=== PATIENT | male | born 1965 | race Hispanic/Latino ===

== ENCOUNTER 2018-03-18 02:56 | Emergency (ER) | payer OTHER ==
[2018-03-18] MEDS ORDERED: MEPERIDINE HCL 25 MG/0.5 ML ONE (03:36)
[2018-03-18] MEDS ORDERED: MEPERIDINE HCL 50 MG/ML AMP ONE (03:36)
[2018-03-18] MEDS ORDERED: PROMETHAZINE 25 MG/ML VIAL ONE (03:37)
--- NOTE | 2018-03-18 05:44 | ER ---
Nurse's Notes [facility] Name: Nikos Corona Age: 52 yrs Sex: Male : 1965 Arrival Date: 03/18/2018 Time: 02:58 Bed 7 Private MD: Braulio Mendoza Diagnosis: Neck and back strain. Contusions right knee and left shoulder Presentation: 03/18 03:13 Presenting complaint: Patient states: " Around 5 PM yesterday I was talking to the ea doctors office about getting my Ambien refilled and stepped off the porch and slid and fell on my ass" pt reports he got up took a shower and laid down, reports he was unable to go to sleep due to the pain in his right leg, back, chest, shoulder and neck pain. Transition of care: patient was not received from another setting of care. Onset of symptoms was March 17, 2018. Initial Sepsis Screen: Does the patient meet any 2 criteria? HR > 90 bpm. Does the patient have a suspected source of infection? No. Patient's initial sepsis screen is negative. Care prior to arrival: None. 03:13 Method Of Arrival: Wheelchair ea 03:13 Acuity: YESI 3 ea Triage Assessment: 03:13 General: Appears uncomfortable, Behavior is restless. Pain: Complains of pain in ea posterior cervical area, left trapezius, right trapezius, lumbar area, left low back, right low back, anterior aspect of left upper chest and right leg Pain currently is 10 out of 10 on a pain scale. Quality of pain is described as aching, sharp, Is continuous. Neuro: Level of Consciousness is awake, alert, obeys commands, Oriented to person, place, time, situation. Cardiovascular: Heart tones present Patient's skin is warm and dry. Cardiovascular: suzie lower 2+ pitting edema. Respiratory: Airway is patent Respiratory effort is even, unlabored, Respiratory pattern is regular, symmetrical, Breath sounds are clear bilaterally. GI: Abdomen is round Bowel sounds present X 4 quads. Derm: Skin is pink, warm \\T\\ dry. Historical: - Allergies: 03:20 Rifampin; ea 03:20 Sulfa (Sulfonamide Antibiotics); ea - Home Meds: 03:20 atorvastatin Oral [Active]; clopidogrel 75 mg Oral tab 1 tab once daily [Active]; ea gabapentin Oral [Active]; Glipizide Oral [Active]; Isosorbide Mononitrate Oral [Active]; morphine 15 mg Oral tab 1 tab daily [Active]; [place] 10-325 mg Oral tab 1 tab every 6 hours [Active]; Omeprazole Oral [Active]; Zolpidem Tartrate Oral [Active]; Spironolactone Oral [Active]; - PMHx: 03:20 CHF; Diabetes - NIDDM; Hypertension; Hyperlipidemia; Myocardial infarction; ea - Immunization history:: Adult Immunizations up to date. - Social history:: Smoking status: Patient uses tobacco products, smokes one-half pack cigarettes per day. Screenin:27 Abuse screen: Denies threats or abuse. Nutritional screening: No deficits noted. ea Tuberculosis screening: No symptoms or risk factors identified. Fall Risk Assessment: 04:15 Reassessment: Pt returned from CT. ea 04:44 Reassessment: Pt resting with eyes closed, respirations even and unlabored, chest ea expansions even and symmetrical. no s/s of pain or discomfort noted at this time. 05:50 Reassessment: Resting with eyes closed, respirations even and unlabored, chest ea expansions even and symmetrical. No s/s of pain or discomfort noted at this time. 06:45 Reassessment: Patient and/or family updated on plan of care and expected duration. Pain ea level reassessed. Patient is alert, oriented x 3, equal unlabored respirations, skin warm/dry/pink. Discharge instruction given to patient, pt verbalized he was going to wait in the lobby for friend to pick him up. Vital Signs: 03:15 BP 131 / 94; Pulse 101; Resp 20 S; Temp 97.8(O); Pulse Ox 97% on R/A; Weight 124.74 kg; ea Height 6 ft. 1 in. (185.42 cm); Pain 10/10; 04:58 BP 120 / 73; Pulse 87; Resp 18 S; Pulse Ox 97% on R/A; ea 05:21 BP 129 / 70; Pulse 83; Resp 18; Pulse Ox 97% ; ea 06:40 BP 126 / 78; Pulse 80; Resp 18; Temp 97.8(O); Pulse Ox 98% on R/A; Pain 7/10; ea 03:15 Body Mass Index 36.28 (124.74 kg, 185.42 cm) ea ED Course: 02:58 Patient arrived in ED. es 02:58 Braulio Mendoza MD is Private Physician. es 03:13 Cristina Soto, RN is Primary Nurse. ea 03:13 Patient has correct armband on for positive identification. Bed in low position. Call ea light in reach. Side rails up X2. 03:17 Triage completed. ea 03:23 Domingo Wilkes MD is Attending Physician. pkl 03:27 Arm band placed on right wrist. ea 03:55 X-ray completed. Portable x-ray completed in exam room. Patient tolerated procedure kw poorly. 03:56 Shoulder Left (2 View) XRAY In Process Unspecified. EDMS 03:56 Knee Right 2 View XRAY In Process Unspecified. EDMS 04:20 CT completed. Patient moved to CT via stretcher. Patient moved back from CT. cw1 04:31 CT Traumagram (Head C Spine CAP wo con) In Process Unspecified. EDMS 05:43 Braulio Mendoza MD is Referral Physician. pkl 06:45 No provider procedures requiring assistance completed. Patient did not have IV access ea during this emergency room visit. Administered Medications: 03:43 Drug: Phenergan 12.5 mg Route: IM; Site: left deltoid; ea 04:15 Follow up: Response: No adverse reaction; Pain is decreased ea 03:44 Drug: Demerol 75 mg Route: IM; Site: right gluteus; ea 04:15 Follow up: Response: No adverse reaction; Pain is decreased ea Outcome: 05:44 Discharge ordered by . pkl 06:45 Discharged to Pt awaiting in the lobby for friend to pick him up. ea 06:45 Condition: improved 06:45 Discharge instructions given to patient, Instructed on discharge instructions, follow up and referral plans. medication usage, Demonstrated understanding of instructions, follow-up care, medications, Prescriptions given X 1. 06:55 Patient left the ED. ea Signatures: Dispatcher [employer] EDMS Domingo Wilkes MD MD pkl Salyer, Edna es Woodley, Crystal cw1 Clotilde Rouse Elena, RN RN hima Corrections: (The following items were deleted from the chart) 07:12 07:10 Patient left the ED. ea ea
--- NOTE | 2018-03-18 05:45 | EDPHYS ---
Physician Documentation [facility] Name: Nikos Corona Age: 52 yrs Sex: Male : 1965 Arrival Date: 03/18/2018 Time: 02:58 Bed 7 Private MD: Braulio Mendoza ED Physician Domingo Wilkes HPI: 03/18 03:30 This 52 yrs old Male presents to ER via Wheelchair with complaints of Fall pkl Injury. 03:30 Details of fall: The patient fell from an upright position, while standing. Onset: The pkl symptoms/episode began/occurred today, 10 hour(s) ago. Associated injuries: The patient sustained neck injury, pain with movement, upper back injury, injury to the low back, pain, left shoulder, right knee. Historical: - Allergies: 03:20 Rifampin; ea 03:20 Sulfa (Sulfonamide Antibiotics); ea - Home Meds: 03:20 atorvastatin Oral [Active]; clopidogrel 75 mg Oral tab 1 tab once daily [Active]; ea gabapentin Oral [Active]; Glipizide Oral [Active]; Isosorbide Mononitrate Oral [Active]; morphine 15 mg Oral tab 1 tab daily [Active]; [place] 10-325 mg Oral tab 1 tab every 6 hours [Active]; Omeprazole Oral [Active]; Zolpidem Tartrate Oral [Active]; Spironolactone Oral [Active]; - PMHx: 03:20 CHF; Diabetes - NIDDM; Hypertension; Hyperlipidemia; Myocardial infarction; ea - Immunization history:: Adult Immunizations up to date. - Social history:: Smoking status: Patient uses tobacco products, smokes one-half pack cigarettes per day. ROS: 03:30 Eyes: Negative for injury, pain, redness, and discharge, ENT: Negative for injury, pkl pain, and discharge. 03:30 Neck: Positive for pain with movement. 03:30 Cardiovascular: Negative for chest pain. 03:30 Respiratory: Negative for shortness of breath. 03:30 Abdomen/GI: Negative for abdominal pain, nausea, vomiting, and diarrhea. 03:30 Back: Positive for pain with movement, of the upper and lower back. 03:30 : Negative for urinary symptoms. 03:30 MS/extremity: Positive for contusion, of the left shoulder, right knee. 03:30 Skin: Negative for rash. 03:30 Neuro: Negative for altered mental status, loss of consciousness. Exam: 03:30 Head/Face: Normocephalic, atraumatic. Eyes: Pupils equal round and reactive to light, pkl extra-ocular motions intact. Lids and lashes normal. Conjunctiva and sclera are non-icteric and not injected. Cornea within normal limits. Periorbital areas with no swelling, redness, or edema. ENT: Nares patent. No nasal discharge, no septal abnormalities noted. Tympanic membranes are normal and external auditory canals are clear. Oropharynx with no redness, swelling, or masses, exudates, or evidence of obstruction, uvula midline. Mucous membranes moist. 03:30 Neck: ROM/movement: pain, that is mild, with any movement. 03:30 Chest/axilla: Exam negative for acute changes. 03:30 Cardiovascular: Rate: tachycardic, actual rate is 101 bpm, Rhythm: regular. 03:30 Respiratory: the patient does not display signs of respiratory distress, Respirations: normal, Breath sounds: are clear throughout. 03:30 Abdomen/GI: Bowel sounds: normal, Palpation: abdomen is soft and non-tender, in all quadrants. 03:30 Back: pain, that is moderate, of the upper and lower back. 03:30 : Exam negative for acute changes. 03:30 Musculoskeletal/extremity: Exam is negative for acute changes. 03:30 Skin: Exam negative for rash. 03:30 Neuro: Orientation: is normal, Mentation: is normal, Cranial nerves: grossly normal, Motor: is normal. Vital Signs: 03:15 BP 131 / 94; Pulse 101; Resp 20 S; Temp 97.8(O); Pulse Ox 97% on R/A; Weight 124.74 kg; ea Height 6 ft. 1 in. (185.42 cm); Pain 10/10; 04:58 BP 120 / 73; Pulse 87; Resp 18 S; Pulse Ox 97% on R/A; ea 05:21 BP 129 / 70; Pulse 83; Resp 18; Pulse Ox 97% ; ea 06:40 BP 126 / 78; Pulse 80; Resp 18; Temp 97.8(O); Pulse Ox 98% on R/A; Pain 7/10; ea 03:15 Body Mass Index 36.28 (124.74 kg, 185.42 cm) ea MDM: 03:23 Patient medically screened. pkl 05:43 Data reviewed: vital signs, nurses notes, radiologic studies, CT scan, plain films. pkl 03/18 03:30 Order name: CT Traumagram (Head C Spine CAP wo con) pkl 03/18 03:30 Order name: Shoulder Left (2 View) XRAY pkl 03/18 03:30 Order name: Knee Right 2 View XRAY pkl 03/18 05:45 Order name: Apolinar Wrap; Complete Time: 05:55 pkl 03/18 05:45 Order name: Sling; Complete Time: 05:55 pkl Administered Medications: 03:43 Drug: Phenergan 12.5 mg Route: IM; Site: left deltoid; ea 04:15 Follow up: Response: No adverse reaction; Pain is decreased ea 03:44 Drug: Demerol 75 mg Route: IM; Site: right gluteus; ea 04:15 Follow up: Response: No adverse reaction; Pain is decreased ea Disposition: 03/18/18 05:44 Discharged to Home. Impression: Neck and back strain. Contusions right knee and left shoulder. - Condition is Stable. - Prescriptions for Ultram 50 mg Oral Tablet - take 1 tablet by ORAL route every 8 hours As needed; 20 tablet. - Medication Reconciliation Form, Thank You Letter, Antibiotic Education, Prescription Opioid Use form. - Follow up: Braulio Mendoza MD; When: 2 - 3 days; Reason: Re-evaluation by your physician. - Problem is new. - Symptoms have improved. Signatures: Dispatcher [employer] EDDomingo Crum MD MD pkCristina Farr, RN RN hima
--- NOTE | 2018-03-18 06:19 | RAD REPORT ---
EXAM DESCRIPTION: RAD - Knee Right 2 View - 03/18/2018 3:58 am CLINICAL HISTORY: Fall, knee pain COMPARISON: None. FINDINGS: No gross fracture deformity is seen. Medial compartment narrowing present. Small a moderat e joint effusion is present. No fat fluid level identified.Soft tissues are mildly edematous. Minimal degenerative change to the patella. No air or foreign body in the soft tissues. IMPRESSION: Joint effusion is present but no fracture is identifiable at this time.
--- NOTE | 2018-03-18 06:21 | RAD REPORT ---
EXAM DESCRIPTION: RAD - Shoulder Left 2 View - 03/18/2018 4:00 am CLINICAL HISTORY: Fall, shoulder pain COMPARISON: None. TECHNIQUE: Internal and external rotation views of the left shoulder were obtained. FINDINGS: There is no fracture or dislocation. AC joint is normal in appearance. No significant dege nerative change. Acromial humeral joint space is normal. Pacemaker overlies a portion of the scapula. IMPRESSION: Negative two-view left shoulder examination for acute finding.
[2018-03-18 07:15] VITALS: TEMP 97.8; O2SAT 97
[2018-03-18 07:17] VITALS: BP 129/70
--- NOTE | 2018-03-18 08:23 | RAD REPORT ---
EXAM DESCRIPTION: CT - Head C Spine Cap Wo Con - 03/18/2018 6:15 am CLINICAL HISTORY: Fall, head, neck, chest and abdomen pain COMPARISON: None. TECHNIQUE: Axial [address] head images were obtained. Axial [address] cervical spine images were obtain ed with sagittal and coronal reconstruction images reviewed. Axial 5 mm images of the chest, abdomen and pelvis were obtained. All CT scans are performed using dose optimization technique as appropriate and may include automated exposure control or mA/KV adjustment according to patient size. FINDINGS: No intracranial hemorrhage, mass or edema. No midline shift or abnormal fluid collection. Mastoid air cells are clear. Patchy mucosal thickening in the ethmoid air cells. No skull fracture. Cervical bodies are normal in height. There is reversal of the usual cervical lordosis that is probab ly positioning artifact. Muscle spasm can create the same pattern.No subluxation abnormality.No fract ure or acute bone finding.C6-7 disc space narrowing present with endplate spurring. No spinal stenosi s seen. Foraminal stenosis is present at this level. No other significant disc space narrowing.No pre vertebral soft tissue thickening or paraspinal mass.Central canal detail is inherently limited on CT imaging.Carotid calcifications are present. No pulmonary contusion, large mass, infiltrate or other suspicious finding. Patient has a few scatter ed pulmonary nodules under 6 mm in size. None are calcified. No pneumothorax or pleural effusion. N o mediastinal hematoma and the aorta and pulmonary arteries are unremarkable. No chest will mass or a bnormal axillary finding. No displaced rib fracture or other significant bony finding. CT abdomen and pelvis show no injury to solid abdominal viscera. Cholecystectomy clips are present. N o biliary tree dilatation. No acute bowel injury identifiable. No free air, free fluid or abnormal st randing. No mass or bulky lymphadenopathy. There is a 3.5 centimeter ventral hernia with 2.6 centimet er neck in the upper abdomen at the level of the stomach. Herniated fat has a mild congested or edema tous appearance. No bowel involvement. No urinary bladder abnormality. Chest, abdomen and pelvis show bony degenerative change but no acute process identifiable. No acute v ascular finding suspected. Vascular assessment is limited in the absence of contrast. IMPRESSION: No hemorrhage, edema or acute CT Head finding. Cervical spine degenerative change as detailed. No fracture or acute finding. No pulmonary contusion or pneumothorax. A small Bochdalek's hernia is seen on the left. No acute comp onent. Patient has several noncalcified pulmonary nodules under 6 mm. Followup recommendations would be opti onal [address] study for low risk patient or [address] follow-up for a high risk patient. No acute finding in the abdomen or pelvis. Nonacute findings detailed in the body of the report.
== END 2018-03-18 07:10 | disposition home or self-care (01) ==
LOC: ER 02:56
DX: S16.1XXA Strain of muscle, fascia and tendon at neck level, initial encounter (principal); S80.01XA Contusion of right knee, initial encounter; S40.012A Contusion of left shoulder, initial encounter; W18.39XA Other fall on same level, initial encounter; Y93.89 Activity, other specified; Y92.9 Unspecified place or not applicable; Z88.2 Allergy status to sulfonamides; Z88.8 Allergy status to other drugs, medicaments and biological substances; I10 Essential (primary) hypertension; E11.9 Type 2 diabetes mellitus without complications; E78.5 Hyperlipidemia, unspecified; I25.2 Old myocardial infarction; F17.210 Nicotine dependence, cigarettes, uncomplicated
CPT/HCPCS: 70450; 71250; 72125; 73030; 73560; J2175 ×2; J2550; 96372; 99284

== ENCOUNTER 2018-06-05 10:54 | Inpatient (IN) | payer OTHER ==
[2018-06-05] MEDS ORDERED: FENTANYL CITR 100 MCG/2 ML ONE (12:13)
[2018-06-05] MEDS ORDERED: Levofloxacin500mg IV 500 MG/100 ML BAG IV ONE (12:13)
[2018-06-05] MEDS ORDERED: ONDANSETRON 4 MG/2 ML VIAL ONE (12:13)
[2018-06-05] MEDS ORDERED: VANCOMYCIN 1 GM/250 ML BAG ONE (12:14)
[2018-06-05 12:26] LABS: Absolute Lymphocytes (CBC) 2.1 K/uL (0.7-4.9); Absolute Monocytes 0.9 K/uL (0.1-1.3); Absolute Neutrophil 8.6 K/uL (1.8-8.0); Basophils % 0.8 % (0-1.3); Eosinophils % 4.8 % (0-4.4); Hematocrit 34.2 % (39.6-49.0); Lymphocytes % 17.2 % (15.3-44.8); MCH 32.7 pg (27.0-35.0); MCV 92.5 fL (80-100); MPV 8.2 fL (7.6-11.3); RBC Red Blood Cell Count 3.69 M/uL (4.33-5.43)
[2018-06-05 12:32] LABS: BUN Blood Urea Nitrogen 19 mg/dL (7-18); Bicarbonate 28 mmol/L (21-32); Glucose Level 290 mg/dL (74-106); Potassium 3.9 mmol/L (3.5-5.1); Sodium Level 137 mmol/L (136-145)
--- NOTE | 2018-06-05 13:28 | EDPHYS ---
Physician Documentation [facility] Name: Nikos Corona Age: 52 yrs Sex: Male : 1965 Arrival Date: 06/05/2018 Time: 10:57 Bed 2 Private MD: Braulio Mendoza ED Physician Axel Zhou HPI: 06/05 12:00 This 52 yrs old Male presents to ER via Ambulatory with complaints of Wound jr8 Infection - TOE. 12:00 The patient presents with pain, swelling, tenderness. The complaints affect the left jr8 foot. Context: resulted from an unknown cause. Onset: The symptoms/episode began/occurred acutely, 3 day(s) ago. Modifying factors: The symptoms are alleviated by nothing, the symptoms are aggravated by weight bearing, movement, wearing shoes. Associated signs and symptoms: The patient has no apparent associated signs or symptoms. Severity of symptoms: At their worst the symptoms were moderate, in the emergency department the symptoms are unchanged. The patient has experienced a previous episode. The patient has not recently seen a physician. Historical: - Allergies: 11:04 Rifampin; sg 11:04 Sulfa (Sulfonamide Antibiotics); sg - PMHx: 11:04 CHF; Diabetes - NIDDM; Hyperlipidemia; Hypertension; Myocardial infarction; sg - Immunization history:: Adult Immunizations up to date. - Social history:: Smoking status: Patient/guardian denies using tobacco. - Ebola Screening: : Patient negative for fever greater than or equal to 101.5 degrees Fahrenheit, and additional compatible Ebola Virus Disease symptoms Patient denies exposure to infectious person Patient denies travel to an Ebola-affected area in the 21 days before illness onset No symptoms or risks identified at this time. ROS: 12:02 Eyes: Negative for injury, pain, redness, and discharge, ENT: Negative for injury, jr8 pain, and discharge, Neck: Negative for injury, pain, and swelling, Cardiovascular: Negative for chest pain, palpitations, and edema, Respiratory: Negative for shortness of breath, cough, wheezing, and pleuritic chest pain, Abdomen/GI: Negative for abdominal pain, nausea, vomiting, diarrhea, and constipation, Back: Negative for injury and pain, Skin: Negative for injury, rash, and discoloration, Neuro: Negative for headache, weakness, numbness, tingling, and seizure. 12:02 MS/extremity: Positive for erythema, pain, swelling, tenderness, of the left foot. Exam: 12:02 Cardiovascular: Regular rate and rhythm with a normal S1 and S2. No gallops, murmurs, jr8 or rubs. Normal PMI, no JVD. No pulse deficits. Respiratory: Lungs have equal breath sounds bilaterally, clear to auscultation and percussion. No rales, rhonchi or wheezes noted. No increased work of breathing, no retractions or nasal flaring. Skin: Warm, dry with normal turgor. Normal color with no rashes, no lesions, and no evidence of cellulitis. Neuro: Awake and alert, GCS 15, oriented to person, place, time, and situation. Cranial nerves II-XII grossly intact. Motor strength 5/5 in all extremities. Sensory grossly intact. Cerebellar exam normal. Normal gait. 12:02 Musculoskeletal/extremity: Extremities: grossly normal except: noted in the left foot: erythema, pain, swelling, tenderness, ROM: intact in all extremities, Circulation is intact in all extremities. Sensation intact. 3rd digit left foot with exudate noted under skin. Thickened and swollen. Nail has been lost. Vital Signs: 11:05 BP 139 / 80; Pulse 85; Resp 17 S; Temp 98.1; Pulse Ox 98% on R/A; Weight 129.27 kg (R); sg Height 5 ft. 10 in. (177.80 cm) (R); Pain 10/10; 12:00 BP 124 / 78; Pulse 78; Resp 20; Pulse Ox 97% on R/A; aj 13:27 BP 132 / 88; Pulse 72; Resp 16; Pulse Ox 97% on R/A; aj 14:42 BP 122 / 77; Pulse 89; Resp 20; Pulse Ox 96% on R/A; ae1 11:05 Body Mass Index 40.89 (129.27 kg, 177.80 cm) sg MDM: 11:46 Patient medically screened. jr8 13:24 Data reviewed: vital signs, nurses notes, lab test result(s), and as a result, I will jr8 admit patient. Data interpreted: Pulse oximetry: on room air is 97 %. Interpretation: normal. Counseling: I had a detailed discussion with the patient and/or guardian regarding: the historical points, exam findings, and any diagnostic results supporting the discharge/admit diagnosis, lab results, the need for further work-up and treatment in the hospital. 13:27 ED course: Patient does not want to be admitted to Dr. Mendoza . [facility] 06/05 11:58 Order name: CBC with Diff; Complete Time: 13:00 [facility] 06/05 11:58 Order name: Basic Metabolic Panel; Complete Time: 13:00 [facility] 06/05 11:58 Order name: Blood Culture Adult (2) [facility] 06/05 14:07 Order name: Urinalysis [facility] 06/05 14:09 Order name: Lower Ext. W/Wo Con [facility] 06/05 11:58 Order name: IV; Complete Time: 12:20 [facility] 06/05 14:07 Order name: CONS Physician Consult [facility] 06/05 14:07 Order name: Heart Healthy [facility] 06/05 14:07 Order name: NPO [facility] 06/05 14:09 Order name: CONS [facility] Administered Medications: 12:18 Drug: LevaQUIN 500 mg Volume: 100 ml; Route: IVPB; Infused Over: 60 mins; Site: right aj antecubital; 13:39 Follow up: Response: No adverse reaction; IV Status: Completed infusion; IV Intake: aj 100ml 12:19 Drug: fentaNYL (PF) 50 mcg Route: IVP; Site: right antecubital; aj 13:39 Follow up: Response: Pain is decreased aj 12:19 Drug: Zofran 4 mg Route: IVP; Site: right antecubital; aj 13:38 Follow up: Response: No change in condition aj 13:37 Drug: vancoMYCIN 1 grams Route: IVPB; Infused Over: 2 hrs; Site: right antecubital; aj 14:58 Follow up: IV Status: Infusion continued upon admission ae1 14:10 Drug: Nicotine 21 mg/24 hr 1 patches Route: Transdermal; Site: anterior chest wall; ae1 14:31 Drug: Ativan 0.5 mg Route: IVP; Site: right antecubital; ae1 14:57 Follow up: Response: Anxiety decreased ae1 14:31 Not Given (Duplicate Order): Ativan 0.5 mg IVP once ae1 14:31 Not Given (Duplicate Order): morphine 4 mg IVP once ae1 14:35 Drug: morphine 4 mg Route: IVP; Site: right antecubital; ae1 14:57 Follow up: Response: Pain is decreased ae1 Disposition: 17:30 Co-signature as Attending Physician, Axel Zhou MD I agree with the assessment and kdr plan of care. Disposition: 06/05/18 13:27 Hospitalization ordered by Phoebe Roberts for Inpatient Admission. Preliminary diagnosis is Cellulitis of left toe. - Bed requested for Telemetry/MedSurg (Inpatient). - Status is Inpatient Admission. ae1 - Condition is Stable. - Problem is new. - Symptoms are unchanged. UTI on Admission? No Signatures: Dispatcher [employer] EDMS Getachew Leblanc RN RN Heavenly Roman RN Axel Schaefer MD MD [facility] Kam Jones PA PA jr8 Michael Dickey RN RN ae1 Jen Fonseca mt, Elizabeth eb Corrections: (The following items were deleted from the chart) 13:52 13:27 Hospitalization Ordered by Phoebe Roberts MD for Inpatient Admission. Preliminary mt diagnosis is Cellulitis of left toe. Bed requested for Telemetry/MedSurg (Inpatient). Status is Inpatient Admission. Condition is Stable. Problem is new. Symptoms are unchanged. UTI on Admission? No. jr8 14:33 13:52 06/05/2018 13:27 Hospitalization Ordered by Phoebe Roberts MD for Inpatient eb Admission. Preliminary diagnosis is Cellulitis of left toe. Bed requested for Telemetry/MedSurg (Inpatient). Status is Inpatient Admission. Condition is Stable. Problem is new. Symptoms are unchanged. UTI on Admission? No. mt 15:16 14:33 06/05/2018 13:27 Hospitalization Ordered by Phoebe Roberts MD for Inpatient ae1 Admission. Preliminary diagnosis is Cellulitis of left toe. Bed requested for Telemetry/MedSurg (Inpatient). Status is Inpatient Admission. Condition is Stable. Problem is new. Symptoms are unchanged. UTI on Admission? No. eb
--- NOTE | 2018-06-05 13:28 | ER ---
Nurse's Notes [facility] Name: Nikos Corona Age: 52 yrs Sex: Male : 1965 Arrival Date: 06/05/2018 Time: 10:57 Bed 2 Private MD: Braulio Mendoza Diagnosis: Cellulitis of left toe Presentation: 06/05 11:03 Presenting complaint: Patient states: Wound to the left foot, second and third toe, pt sg reports pain and swelling, pain a 10/10. Transition of care: patient was not received from another setting of care. Onset of symptoms was June 05, 2018. Risk Assessment: Do you want to hurt yourself or someone else? Patient reports no desire to harm self or others. Care prior to arrival: None. 11:03 Method Of Arrival: Ambulatory sg 11:03 Acuity: YESI 3 sg 15:05 Initial Sepsis Screen: Does the patient meet any 2 criteria? No. Patient's initial ae1 sepsis screen is negative. Does the patient have a suspected source of infection? Yes: Skin breakdown/wound. Historical: - Allergies: 11:04 Rifampin; sg 11:04 Sulfa (Sulfonamide Antibiotics); sg - PMHx: 11:04 CHF; Diabetes - NIDDM; Hyperlipidemia; Hypertension; Myocardial infarction; sg - Immunization history:: Adult Immunizations up to date. - Social history:: Smoking status: Patient/guardian denies using tobacco. - Ebola Screening: : Patient negative for fever greater than or equal to 101.5 degrees Fahrenheit, and additional compatible Ebola Virus Disease symptoms Patient denies exposure to infectious person Patient denies travel to an Ebola-affected area in the 21 days before illness onset No symptoms or risks identified at this time. Screenin:00 Abuse screen: Denies threats or abuse. Denies injuries from another. Nutritional aj screening: No deficits noted. Tuberculosis screening: No symptoms or risk factors identified. Fall Risk None identified. Assessment: 12:00 General: Appears in no apparent distress. comfortable, Behavior is calm, cooperative, aj appropriate for age. Pain: Complains of pain in left foot and left leg. Neuro: Level of Consciousness is awake, alert, obeys commands, Oriented to person, place, time, situation, Appropriate for age. Respiratory: Airway is patent Respiratory effort is even, unlabored, Respiratory pattern is regular, symmetrical. Derm: Skin is intact, is healthy with good turgor, Skin is pink, warm \\T\\ dry. normal, Wound noted plantar aspect of left third toe and Left third toenail Wound is White eschar noted to wound. Patient reports toenail coming off last night when dressing was changed. 14:07 Reassessment: Patient states he needs to "go outside and smoke a cigarette". Nurse ae1 notified Dr. Roberts, per provider ok to administer nicotine patch. 14:25 Reassessment: This nurse entered the room to an alarming IV pump. Patient observed aj laying sideways in bed and stated " Can you do something about this cuff it keeps going off" This nurse stated "I will set it to go every hour instead so it doesn't go off as much." Patient then requested to stand up. Side rail lowered and wheelchair placed at bedside in locked position so patient can move easily from bed to chair. Patient stated "I'm in so much fucking pain with my neuropathy I am about to go crazy and start destroying your shit, I need to stand up and walk around. I also get claustrophobic when the curtain is closed and when I am alone." I stated "Sir, I need to ask you not to swear anymore as this room is not private and the people next door can hear, as can the people in the hallway because we can't close the door." Patient stated, "you're not gonna tell me I can't cuss, I will say what I want because of my fucking neuropathy and my pain. Take this shit off, I'm getting out of here." Vancomycin stopped and disconnected from patient. Carrington reveles called. Michael Riley RN at bedside to witness. 14:25 Reassessment: Patient was loudly cursing and using abusive language towards nurse, ae1 Patient stated he wanted to go outside, he became increasingly agitated. Nurse asked patient to lower voice and refrain from cursing, patient became angry and threatened to "break your shit." Called carrington Reveles as patient stood abruptly and demanded that nurses remove IV. Vital Signs: 11:05 BP 139 / 80; Pulse 85; Resp 17 S; Temp 98.1; Pulse Ox 98% on R/A; Weight 129.27 kg (R); sg Height 5 ft. 10 in. (177.80 cm) (R); Pain 10/10; 12:00 BP 124 / 78; Pulse 78; Resp 20; Pulse Ox 97% on R/A; aj 13:27 BP 132 / 88; Pulse 72; Resp 16; Pulse Ox 97% on R/A; aj 14:42 BP 122 / 77; Pulse 89; Resp 20; Pulse Ox 96% on R/A; ae1 11:05 Body Mass Index 40.89 (129.27 kg, 177.80 cm) ED Course: 10:57 Patient arrived in ED. sb2 10:57 Braulio Mendoza MD is Private Physician. sb2 11:04 Triage completed. sg 11:04 Arm band placed on. sg 11:43 Heavenly Roman, BLANCA is Primary Nurse. aj 11:46 Kam Jones PA is PHCP. jr8 11:46 Axel Zhou MD is Attending Physician. jr8 12:00 Patient has correct armband on for positive identification. aj 12:00 Inserted saline lock: 20 gauge in right antecubital area, using aseptic technique. aj Blood collected. 13:27 Phoebe Roberts MD is Hospitalizing Provider. jr8 13:27 No provider procedures requiring assistance completed. aj 15:15 Patient admitted, IV remains in place. ae1 Administered Medications: 12:18 Drug: LevaQUIN 500 mg Volume: 100 ml; Route: IVPB; Infused Over: 60 mins; Site: right aj antecubital; 13:39 Follow up: Response: No adverse reaction; IV Status: Completed infusion; IV Intake: aj 100ml 12:19 Drug: fentaNYL (PF) 50 mcg Route: IVP; Site: right antecubital; aj 13:39 Follow up: Response: Pain is decreased aj 12:19 Drug: Zofran 4 mg Route: IVP; Site: right antecubital; aj 13:38 Follow up: Response: No change in condition aj 13:37 Drug: vancoMYCIN 1 grams Route: IVPB; Infused Over: 2 hrs; Site: right antecubital; aj 14:58 Follow up: IV Status: Infusion continued upon admission ae1 14:10 Drug: Nicotine 21 mg/24 hr 1 patches Route: Transdermal; Site: anterior chest wall; ae1 14:31 Drug: Ativan 0.5 mg Route: IVP; Site: right antecubital; ae1 14:57 Follow up: Response: Anxiety decreased ae1 14:31 Not Given (Duplicate Order): Ativan 0.5 mg IVP once ae1 14:31 Not Given (Duplicate Order): morphine 4 mg IVP once ae1 14:35 Drug: morphine 4 mg Route: IVP; Site: right antecubital; ae1 14:57 Follow up: Response: Pain is decreased ae1 Intake: 13:39 IV: 100ml; Total: 100ml. aj Outcome: 13:27 Decision to Hospitalize by Provider. jr8 15:14 Admitted to Med/surg accompanied by tech, via wheelchair, room 201, with chart, Report ae1 called to BLANCA Martin 15:14 Condition: stable 15:14 Instructed on the need for admit, Demonstrated understanding of instructions. 15:16 Patient left the ED. ae1 Signatures: Getachew Leblanc RN RN sg Myers, Amanda, RN RN aj Roszak, Josh, PA PA jr8 Michael Dickey RN RN ae1 Charlene Rebolledo sb2
[2018-06-05] MEDS ORDERED: ACETAMINOPHEN 500 MG TAB PO PRN (14:02)
[2018-06-05] MEDS ORDERED: ONDANSETRON 4 MG/2 ML VIAL IV PRN (14:02)
[2018-06-05] MEDS ORDERED: NICOTINE 21 MG/PAT TD ONE (14:10)
[2018-06-05] MEDS ORDERED: LORazepam 2 MG/ML VIAL ONE (14:32)
[2018-06-05] MEDS ORDERED: MORPHINE 4 MG/ML SYR ONE (14:33)
[2018-06-05] MEDS: VANCOMYCIN 2 GM in NA CHLORIDE 0.9% 500 ML IVPB SCH (15:00)
[2018-06-05] MEDS ORDERED: NA CHLORIDE 0.9% 1,000 ML IV SCH ×2 (15:00→19:00)
[2018-06-05] MEDS ORDERED: VANCOMYCIN 1.25 GM in NA CHLORIDE 0.9% 250 ML IVPB SCH (15:00)
[2018-06-05 15:28] VITALS: O2SAT 96
[2018-06-05 15:39] VITALS: BMI 40.8
[2018-06-05] MEDS: INSULIN -REGULAR HUMAN 50 UNIT/0.5 ML ML SQ SCH ×2 (16:28→21:00)
--- NOTE | 2018-06-05 17:03 | P.HP ---
Certification for Inpatient Patient admitted to: Inpatient With expected LOS: >2 Midnights Patient will require the following post-hospital care: None Practitioner: I am a practitioner with admitting privileges, knowledge of patient current condition, hospital course, and medical plan of care. Services: Services provided to patient in accordance with Admission requirements found in Title 42 Section 412.3 of the Code of Federal Regulations Patient History Date of Service: 06/05/18 Primary Care Provider: Dr Mendoza (However Pt states he does not want to be seen by Him anymore) Reason for admission: Left Toe cellulitis History of Present Illness: This is a 52-year-old male with significant past medical history of diabetes, hypertension, hyperlipidemia, CHF, who presented to the ED complaining of having some left toe swelling and pain. Patient was seen at the broom worker office this morning and was told to come to the ER for his left toe infection. Patient has had multiple infection in the past on the right foot but not on the left. Patient stated that his left toe has been hurting for past couple of days and chronically got worse and thus he decided to go see his broom worker. Patient does have a history of longstanding diabetes which is uncontrolled due to noncompliance. Patient has been seen by a infectious disease doctor here in the hospital before as well. Patient had stated that he has noticed a low- grade fever and chills at the house as well. In the ER patient was found to have left to infection with active drainage and swelling and thus medicine team was consulted to admit the patient for further workup. Allergies rifampin Adverse Reaction (Unknown, Verified 01/13/18 01:31) Nausea/Vomiting Sulfa (Sulfonamide Antibiotics) Adverse Reaction (Unknown, Verified 01/13/18 01: 31) Shortness of breath Home Medications: Atorvastatin Calcium [Lipitor] 40 mg PO BEDTIME 01/13/18 Carvedilol 12.5 mg PO BIDWM 01/13/18 Clopidogrel Bisulfate [Plavix*] 75 mg PO DAILY 01/13/18 Gabapentin [Neurontin*] 900 mg PO TID 01/13/18 Hydrocodone Bit/Acetaminophen [Hydrocodon-Acetaminophn 10-325] 1 tab PO QID Omeprazole 20 mg PO DAILY 01/13/18 Venlafaxine HCl [Effexor] 50 mg PO BIDP PRN 01/13/18 Zolpidem Tartrate [Ambien*] 10 mg PO BEDTIME 01/13/18 Spironolactone [Aldactone*] 25 mg PO DAILY #30 tab 01/14/18 Furosemide 40 mg PO BEDTIME 06/05/18 Furosemide [Lasix] 60 mg PO DAILY 06/05/18 Insulin Degludec [Tresiba Flextouch U-100] 20 unit SQ DAILY 06/05/18 Isosorbide Mononitrate [Isosorbide Mononitrate ER] 60 mg PO DAILY 06/05/18 Liraglutide [Victoza 2-Flynn] 1.2 mg SQ DAILY 06/05/18 Magnesium Oxide [Mag 0X Tab] 400 mg PO BID 06/05/18 Nitroglycerin [Nitrostat] 0.4 mg SL PRN PRN 06/05/18 Potassium Chloride [Klor-Con 10] 10 meq PO DAILY 06/05/18 - Past Medical/Surgical History Has patient received pneumonia vaccine in the past: Yes Diabetic: Yes -: CAD -: HTN -: GERD -: NIDDM -: Neuropathy -: Hyperlipidemia -: [place] -: Chronic Pain -: foot surgery -: Defibrilator -: Arlene - Social History Smoking Status: Current every day smoker Alcohol use: No CD- Drugs: No Caffeine use: No Place of Residence: Home Review of Systems General: As per HPI Physical Examination - Vital Signs Temperature: 98.1 F Blood Pressure: 122/77 Pulse: 89 Respirations: 20 - Physical Exam General: Alert, In no apparent distress, Oriented x3 HEENT: Atraumatic, PERRLA, Mucous membr. moist/pink, EOMI, Sclerae nonicteric Neck: Supple, 2+ carotid pulse no bruit, No LAD, Without JVD or thyroid abnormality Respiratory: Clear to auscultation bilaterally, Normal air movement Cardiovascular: Regular rate/rhythm, Normal S1 S2 Gastrointestinal: Normal bowel sounds, No tenderness Musculoskeletal: Swelling, Erythema, Tenderness, Warmth, Other (Left Toe with Drainage and infection ) Integumentary: Skin breakdown Lymphatics: No axilla or inguinal lymphadenopathy - Studies Laboratory Data (last 24 hrs) 06/05/18 11:55: Sodium 137, Potassium 3.9, BUN 19 H, Creatinine 0.80, Glucose 290 H 06/05/18 11:55: WBC 12.2 H, Hgb 12.1 L, Hct 34.2 L, Plt Count 270 Assessment and Plan - Problems (Diagnosis) (1) Toe infection Current Visit: Yes Status: Acute Plan: Left Toe cellulitis concern for Osteomylitis -IV vanc and zosyn -MRI of the toe to r.o osteomulitis -US of the LE to R.o PAD and DVT -Surgery Consulted for possible OR procedure. -Wound culture and blood culture Pending (2) Anxiety Onset Date: 01/13/18 Current Visit: No Status: Chronic (3) CAD (coronary artery disease) Current Visit: No Status: Chronic Plan: Restart Home medication Qualifiers: Coronary Disease-Associated Artery/Lesion type: [place] artery [place] vs. transplanted heart: [place] heart Associated angina: without angina Qualified Code(s): I25.10 - Atherosclerotic heart disease of [place] coronary artery without angina pectoris (4) CHF (congestive heart failure) Current Visit: No Status: Chronic Plan: Restart Home medication Qualifiers: Heart failure type: systolic Heart failure chronicity: chronic Qualified Code(s): I50.22 - Chronic systolic (congestive) heart failure (5) Diabetes mellitus Current Visit: No Status: Chronic Plan: Restart Home medication Qualifiers: Diabetes mellitus type: type 2 Diabetes mellitus half-way insulin use: without half-way use Diabetes mellitus complication status: with skin complications Diabetes mellitus complication detail: with foot ulcer Qualified Code(s): E11.621 - Type 2 diabetes mellitus with foot ulcer; L97.509 - Non-pressure chronic ulcer of other part of unspecified foot with unspecified severity (6) HTN (hypertension) Onset Date: 01/13/18 Current Visit: No Status: Chronic Plan: Restart Home medication Qualifiers: Hypertension type: essential hypertension Qualified Code(s): I10 - Essential (primary) hypertension (7) History of implantable cardiac defibrillator (ICD) Current Visit: No Status: Chronic Plan: Restart Home medication (8) Hyperlipidemia Current Visit: No Status: Chronic Plan: Restart Home medication Qualifiers: Hyperlipidemia type: mixed hyperlipidemia Qualified Code(s): E78.2 - Mixed hyperlipidemia (9) Obesity Onset Date: 01/13/18 Current Visit: No Status: Chronic Qualifiers: Obesity type: due to excess calories Obesity classification: adult class 3 (BMI >= 40) Serious obesity comorbidity presence: with serious comorbidity Body mass index: BMI 40.0-44.9 Qualified Code(s): E66.01 - Morbid (severe) obesity due to excess calories; Z68.41 - Body mass index (BMI) 40.0-44.9, adult (10) PVD (peripheral vascular disease) Current Visit: No Status: Chronic (11) Tobacco abuse Current Visit: Yes Status: Chronic Discharge Plan: Other Plan to discharge in: 72 Hours - Advance Directives Does patient have a Living Will: No Does patient have a Durable POA for Healthcare: No - Code Status/Comfort Care Code Status Assessed: Yes Critical Care: No
[2018-06-05] MEDS ORDERED: VENLAFAXINE HCL 50 MG PO PRN (17:12)
[2018-06-05] MEDS ORDERED: NITROGLYCERIN 0.4 MG/TAB SL PRN (17:39)
[2018-06-05 18:36] LABS: Urine Appearance CLEAR; Urine Bilirubin NEGATIVE (NEG); Urine Blood NEGATIVE (NEG); Urine Color YELLOW; Urine Glucose TRACE (NEG); Urine Protein 1+ (NEG); Urine Urobilinogen 0.2 mg/dL (0.2-1.0)
[2018-06-05 18:44] LABS: Urine Microscopic Reflex ORDER UMIC
[2018-06-05 18:45] LABS: Urine Bacteria NONE SEEN /HPF (NONE SEEN); Urine RBC <5 /HPF (NONE SEEN)
[2018-06-05 18:46] LABS: Urine Culture Reflex Order NOT NEEDED
--- NOTE | 2018-06-05 19:00 | RAD REPORT ---
EXAM DESCRIPTION: [facility]OREEx[facility] Uni Ltd06/05/2018 6:45 pm CLINICAL HISTORY: left leg pain and swelling. COMPARISON: 2008 FINDINGS: Echogenic material consistent with acute thrombus is present within the left popliteal vei n. Left common femoral, superficial femoral, and posterior tibial veins are compressible and demonstrat e augmentation. Doppler demonstrates good flow. IMPRESSION: Acute thrombus within the left popliteal vein. The patient's nurse Jennifer was notified 650 p.m. on June 05, 2018
[2018-06-05] MEDS ORDERED: KETOROLAC 30 MG/ML INJ IV PRN (19:57)
[2018-06-05] MEDS: GABAPENTIN 300 MG CAP PO SCH (20:32)
[2018-06-05] MEDS ORDERED: FUROSEMIDE 40 MG TABLET PO SCH (21:00)
[2018-06-05] MEDS ORDERED: HYDROCODONE/APAP 10/325 TAB PO SCH (21:00)
[2018-06-05] MEDS ORDERED: ZOLPIDEM TARTRATE 10 MG TABLET PO SCH (21:00)
[2018-06-05] MEDS ORDERED: ATORVASTATIN 40 MG TAB PO SCH (21:00)
[2018-06-06] MEDS: Oxycodone HCl/Acetaminophen 1 TAB TAB PO PRN ×2 (00:12→05:46)
[2018-06-06] MEDS: PIPER/TAZO/NS 3.375gm 3.375 GM/100 ML BAG IVPB SCH ×2 (00:13→09:09)
[2018-06-06] MEDS: VANCOMYCIN 2 GM in NA CHLORIDE 0.9% 500 ML IVPB SCH (02:48)
[2018-06-06 05:28] LABS: Absolute Lymphocytes (CBC) 3.1 K/uL (0.7-4.9); Absolute Monocytes 0.6 K/uL (0.1-1.3); Absolute Neutrophil 6.9 K/uL (1.8-8.0); Basophils % 0.8 % (0-1.3); Eosinophils % 5.9 % (0-4.4); Hematocrit 31.9 % (39.6-49.0); Lymphocytes % 26.8 % (15.3-44.8); MCH 33.1 pg (27.0-35.0); MCV 92.4 fL (80-100); MPV 8.2 fL (7.6-11.3); Monocytes % 5.5 % (3.3-12.3); RBC Red Blood Cell Count 3.45 M/uL (4.33-5.43)
[2018-06-06 05:46] LABS: ALT/SGPT 26 U/L (12-78); AST/SGOT 19 U/L (15-37); Albumin 2.7 g/dL (3.4-5.0); Alkaline Phosphatase 61 U/L (45-117); BUN Blood Urea Nitrogen 18 mg/dL (7-18); Bicarbonate 30 mmol/L (21-32); Bilirubin Total 0.3 mg/dL (0.2-1.0); Glucose Level 183 mg/dL (74-106); Phosphorus 3.9 mg/dL (2.5-4.9); Potassium 3.4 mmol/L (3.5-5.1); Protein, Total 6.6 g/dL (6.4-8.2); Sodium Level 143 mmol/L (136-145)
[2018-06-06 05:49] LABS: Magnesium 1.1 mg/dL (1.8-2.4)
[2018-06-06] MEDS ORDERED: Magnesium Sulfate 2gm IVPB 2 G/50 ML BAG IV ONE (06:11)
[2018-06-06] MEDS ORDERED: PANTOPRAZOLE 40MG TABLET PO SCH (07:30)
[2018-06-06] MEDS: INSULIN -REGULAR HUMAN 50 UNIT/0.5 ML ML SQ SCH (07:30)
[2018-06-06] MEDS ORDERED: CARVEDILOL 12.5 MG TAB PO SCH (08:00)
[2018-06-06] MEDS ORDERED: ISOSORBIDE MONO SR 60 MG TAB PO SCH (09:00)
[2018-06-06] MEDS ORDERED: FUROSEMIDE 40 MG TABLET PO SCH (09:00)
[2018-06-06] MEDS ORDERED: SPIRONOLACTONE 25 MG TABLET PO SCH (09:00)
[2018-06-06] MEDS ORDERED: HOME MED 1 EA UNK (Omeprazole [Omeprazole] 20 MG) PO SCH (09:00)
[2018-06-06] MEDS: KCL 20 MEQ/100 mL IVPB 20 MEQ/100 ML BAG IV SCH ×2 (09:00→09:07)
[2018-06-06] MEDS: GABAPENTIN 300 MG CAP PO SCH (09:08)
[2018-06-06 10:15] VITALS: BP 133/76; TEMP 98.3
--- NOTE | 2018-06-06 11:17 | P.SSS ---
Patient History Date of Service: 06/06/18 Primary Care Provider: Dr Mendoza (However Pt states he does not want to be seen by Him anymore) Reason for admission: Left Toe cellulitis History of Present Illness: This is a 52-year-old male with significant past medical history of diabetes, hypertension, hyperlipidemia, CHF, who presented to the ED complaining of having some left toe swelling and pain. Patient was seen at the senior biostatistician/group leader office this morning and was told to come to the ER for his left toe infection. Patient has had multiple infection in the past on the right foot but not on the left. Patient stated that his left toe has been hurting for past couple of days and chronically got worse and thus he decided to go see his senior biostatistician/group leader. Patient does have a history of longstanding diabetes which is uncontrolled due to noncompliance. Patient has been seen by a infectious disease doctor here in the hospital before as well. Patient had stated that he has noticed a low- grade fever and chills at the house as well. In the ER patient was found to have left to infection with active drainage and swelling and thus medicine team was consulted to admit the patient for further workup. Allergies rifampin Adverse Reaction (Unknown, Verified 01/13/18 01:31) Nausea/Vomiting Sulfa (Sulfonamide Antibiotics) Adverse Reaction (Unknown, Verified 01/13/18 01: 31) Shortness of breath Home Medications: Atorvastatin Calcium [Lipitor] 40 mg PO BEDTIME 01/13/18 Carvedilol 12.5 mg PO BIDWM 01/13/18 Clopidogrel Bisulfate [Plavix*] 75 mg PO DAILY 01/13/18 Gabapentin [Neurontin*] 900 mg PO TID 01/13/18 Hydrocodone Bit/Acetaminophen [Hydrocodon-Acetaminophn 10-325] 1 tab PO QID Omeprazole 20 mg PO DAILY 01/13/18 Venlafaxine HCl [Effexor] 50 mg PO BIDP PRN 01/13/18 Zolpidem Tartrate [Ambien*] 10 mg PO BEDTIME 01/13/18 Spironolactone [Aldactone*] 25 mg PO DAILY #30 tab 01/14/18 Furosemide 40 mg PO BEDTIME 06/05/18 Furosemide [Lasix] 60 mg PO DAILY 06/05/18 Insulin Degludec [Tresiba Flextouch U-100] 20 unit SQ DAILY 06/05/18 Isosorbide Mononitrate [Isosorbide Mononitrate ER] 60 mg PO DAILY 06/05/18 Liraglutide [Victoza 2-Flynn] 1.2 mg SQ DAILY 06/05/18 Magnesium Oxide [Mag 0X Tab] 400 mg PO BID 06/05/18 Nitroglycerin [Nitrostat] 0.4 mg SL PRN PRN 06/05/18 Potassium Chloride [Klor-Con 10] 10 meq PO DAILY 06/05/18 - Past Medical/Surgical History Has patient received pneumonia vaccine in the past: Yes Diabetic: Yes -: CAD -: HTN -: GERD -: NIDDM -: Neuropathy -: Hyperlipidemia -: [place] -: Chronic Pain -: foot surgery -: Defibrilator -: Arlene - Social History Smoking Status: Current every day smoker Alcohol use: No CD- Drugs: No Caffeine use: No Place of Residence: Home Review of Systems General: As per HPI Physical Examination - Vital Signs Temperature: 98.3 F Blood Pressure: 133/76 Pulse: 72 Respirations: 20 Pulse Ox (%): 96 - Physical Exam General: Alert, In no apparent distress HEENT: Atraumatic, PERRLA, Mucous membr. moist/pink, EOMI, Sclerae nonicteric Neck: Supple, 2+ carotid pulse no bruit, No LAD, Without JVD or thyroid abnormality Respiratory: Clear to auscultation bilaterally, Normal air movement Cardiovascular: Regular rate/rhythm, Normal S1 S2 Gastrointestinal: Normal bowel sounds, No tenderness Musculoskeletal: Erythema, Tenderness, Warmth Integumentary: No rashes Neurological: Normal gait, Normal speech, Normal strength at 5/5 x4 extr, Normal tone, Normal affect Lymphatics: No axilla or inguinal lymphadenopathy - Studies Laboratory Data (last 24 hrs) 06/05/18 11:55: Sodium 137, Potassium 3.9, BUN 19 H, Creatinine 0.80, Glucose 290 H 06/05/18 11:55: WBC 12.2 H, Hgb 12.1 L, Hct 34.2 L, Plt Count 270 - Diagnosis (Problem(s)) (1) Toe infection Status: Acute Plan: Left Toe cellulitis concern for Osteomylitis -IV vanc and zosyn -Surgery Consulted. [facility] Surgical Procedure -Wound culture and blood culture Pending (2) Anxiety Onset Date: 01/13/18 Status: Chronic (3) CAD (coronary artery disease) Status: Chronic Plan: Restart Home medication Qualifiers: Coronary Disease-Associated Artery/Lesion type: [place] artery [place] vs. transplanted heart: [place] heart Associated angina: without angina Qualified Code(s): I25.10 - Atherosclerotic heart disease of [place] coronary artery without angina pectoris (4) CHF (congestive heart failure) Status: Chronic Plan: Restart Home medication Qualifiers: Heart failure type: systolic Heart failure chronicity: chronic Qualified Code(s): I50.22 - Chronic systolic (congestive) heart failure (5) Diabetes mellitus Status: Chronic Plan: Restart Home medication Qualifiers: Diabetes mellitus type: type 2 Diabetes mellitus nursing home insulin use: without manager terminal use Diabetes mellitus complication status: with skin complications Diabetes mellitus complication detail: with foot ulcer Qualified Code(s): E11.621 - Type 2 diabetes mellitus with foot ulcer; L97.509 - Non-pressure chronic ulcer of other part of unspecified foot with unspecified severity (6) HTN (hypertension) Onset Date: 01/13/18 Status: Chronic Plan: Restart Home medication Qualifiers: Hypertension type: essential hypertension Qualified Code(s): I10 - Essential (primary) hypertension (7) History of implantable cardiac defibrillator (ICD) Status: Chronic Plan: Restart Home medication (8) Hyperlipidemia Status: Chronic Plan: Restart Home medication Qualifiers: Hyperlipidemia type: mixed hyperlipidemia Qualified Code(s): E78.2 - Mixed hyperlipidemia (9) Obesity Onset Date: 01/13/18 Status: Chronic Qualifiers: Obesity type: due to excess calories Obesity classification: adult class 3 (BMI >= 40) Serious obesity comorbidity presence: with serious comorbidity Body mass index: BMI 40.0-44.9 Qualified Code(s): E66.01 - Morbid (severe) obesity due to excess calories; Z68.41 - Body mass index (BMI) 40.0-44.9, adult (10) PVD (peripheral vascular disease) Status: Chronic (11) Tobacco abuse Status: Chronic (12) DVT (deep venous thrombosis) Status: Acute Plan: Left sided acute DVT -WB Lovenox Qualifiers: DVT location: lower extremity Affected thrombotic vein of extremity: popliteal Chronicity: acute Laterality: left Qualified Code(s): I82.432 - Acute embolism and thrombosis of left popliteal vein Treatment Summary: Pt was seen in the hosptial for Left toe Infection. Surgery reccs Surgical Procedure on Friday, DVT resolved. However Pt decided to Leave AMA as he had to care for his Uncle. Pt has been smoking here in the hospital and was advice several time to stop as it is making his Clot and Wound infection hard to treat. Pt is still noncomplaint with the instructions. Pt is also very Verbally abusive to the staff and Doctors. Pt signed AMA papers and left. - Disposition Disposition: AMA-LEFT AGAINST MEDICAL ADVIC Condition: FAIR Activity: Ad tonya
--- NOTE | 2018-06-06 13:15 | CON ---
Date of Consultation: 06/05/2018 Reason: Left foot infection. History Of Present Illness: The patient is a 52-year-old gentleman with multiple medical problems, w pan had a swelling of his left third toe associated with some blistering and then the open wound and s ome discharge and when saw Dr. Goldsmith yesterday, he advised that he should go to the ER to be admitted as there appeared to be a severe infection. He was admitted, workup was done. His MRI is pending. He did have a venous Doppler, which shows a left popliteal DVT. No fever or chills. He does have s ome discharge from that wound, had some sinus infections in his right foot in the past and his left g reat toe in the past but none in this area. Does not recall any trauma or insect bite. Review of Systems: Otherwise unremarkable. Past Medical History: Significant for coronary artery disease, hypertension, GERD, type 2 diabetes, neuropathy, hyperlipidemia, chronic pain, VT. Past Surgical History: Foot surgery, defibrillator, cholecystectomy. Allergies: INCLUDE BACTRIM AND RIFAMPIN. Social History: He does smoke. Denies drinking alcohol. Family History: Noncontributory. Physical Examination: Vital Signs: Stable. He is afebrile. General: He is awake, alert, and oriented x3. Head and Neck: Cranial nerves 2 through 12 are grossly within normal limits. No neck masses. No JV D. Throat clear. Neck is supple. Chest: Clear. Heart: S1, S2. Abdomen: Soft. Extremity: He has lymphedema on both legs but he does have palpable dorsalis pedis and posterior tib ial pulses on the left side third toe anteriorly and at the tip. There is ulcerations with minimal p us oozing from the tip. Appears may have been a trauma with the patient, neuropathy may not have not ed it and there is in the toe itself erythema, warmth and edema. Laboratory Data: His white count on admission was 12.2, today is 11.4. His chemistry shows glucose of 183 today. His magnesium is 1.1, being replaced. Potassium is 3.4 and he has a left popliteal DV T. Assessment: Infected toe, left foot and the patient with multiple medical problems and a new left po pliteal deep venous thrombosis. Recommendations: Continue vancomycin and Zosyn. Check cultures. Adjust antibiotics accordingly. W e will await the MRI results. The patient may need amputation of this toe. It looks pretty bad; how ever we will see how he responds to the antibiotics and make further recommendation after the MRI is done. No need for any acute surgical intervention especially when he is being anticoagulated for his DVT at this time. We will follow this patient while in the hospital. ANGY/GERHARD Voice ID: [id number] Report ID: [id number]
== END 2018-06-06 10:39 | disposition left against medical advice (07) | DRG 603 ==
LOC: ER 10:54 → ERHOLD 13:41 → 2ND 15:07
PROVIDERS: ADMIT Family Medicine; ATTEND Family Medicine
DX: L03.032 Cellulitis of left toe (principal); I82.432 Acute embolism and thrombosis of left popliteal vein; I50.22 Chronic systolic (congestive) heart failure; Z68.41 Body mass index [BMI] 40.0-44.9, adult; M86.8X7 Other osteomyelitis, ankle and foot; I25.10 Atherosclerotic heart disease of native coronary artery without angina pectoris; K21.9 Gastro-esophageal reflux disease without esophagitis; E11.40 Type 2 diabetes mellitus with diabetic neuropathy, unspecified; E78.5 Hyperlipidemia, unspecified; G89.29 Other chronic pain; I89.0 Lymphedema, not elsewhere classified; L97.529 Non-pressure chronic ulcer of other part of left foot with unspecified severity; E11.65 Type 2 diabetes mellitus with hyperglycemia; F41.9 Anxiety disorder, unspecified; I11.0 Hypertensive heart disease with heart failure; E11.621 Type 2 diabetes mellitus with foot ulcer; E66.01 Morbid (severe) obesity due to excess calories; F17.200 Nicotine dependence, unspecified, uncomplicated; E11.51 Type 2 diabetes mellitus with diabetic peripheral angiopathy without gangrene; Z91.19 Patient's noncompliance with other medical treatment and regimen; E11.69 Type 2 diabetes mellitus with other specified complication; Z79.4 Long term (current) use of insulin; Z95.810 Presence of automatic (implantable) cardiac defibrillator; I25.2 Old myocardial infarction; Z88.1 Allergy status to other antibiotic agents; Z79.02 Long term (current) use of antithrombotics/antiplatelets
CPT/HCPCS: 36415; 80048; 80053; 81003; 81015; 82962; 83735; 84100; 85025; 86140; 87040; 87070; 87077; 87186; 87205; 93971; 96365; 96366; 96375; 99285; J1650; J2405; J2543; J3010; J3370; J3475; J7030

== ENCOUNTER 2018-06-29 10:43 | Inpatient (IN) | payer OTHER ==
[2018-06-29 12:02] LABS: Absolute Neutrophil 10.9 K/uL (1.8-8.0); Basophils % 0.8 % (0-1.3); Eosinophils % 1.5 % (0-4.4); Hematocrit 38.8 % (39.6-49.0); Lymphocytes % 14.3 % (15.3-44.8); MCH 32.2 pg (27.0-35.0); MCV 92.1 fL (80-100); MPV 7.7 fL (7.6-11.3); Monocytes % 7.3 % (3.3-12.3); RBC Red Blood Cell Count 4.22 M/uL (4.33-5.43)
[2018-06-29 12:09] LABS: Protime INR 2.44
--- NOTE | 2018-06-29 12:10 | RAD REPORT ---
EXAM DESCRIPTION: RAD - Chest Single View - 06/29/2018 12:01 pm CLINICAL HISTORY: left foot pain Chest pain. COMPARISON: Chest Single View dated 01/12/2018; Chest Single View dated 05/11/2017; CHEST PA AND LAT 2 VIEW dated 01/05/2013; CHEST SINGLE VIEW dated 01/01/2013 FINDINGS: Portable technique limits examination quality. Mild interstitial pulmonary edema is seen. Dual lead pacer/ defibrillator device. The heart is mildly prominent size. No displaced fractures. IMPRESSION: Mild CHF/ volume overload pattern.
--- NOTE | 2018-06-29 13:37 | RAD REPORT ---
EXAM DESCRIPTION: RAD - Foot Left 3 View - 06/29/2018 1:03 pm CLINICAL HISTORY: Third toe osteomyelitis, foot pain COMPARISON: December 2017 FINDINGS: Destructive bone loss is present involving the middle and distal phalanges of the third to e. There is bone loss and pathologic fracture at the head of the third proximal phalanx. There is pro minent soft tissue swelling present. No foreign body in the third toe soft tissues. No acute or destr uctive changes suspected in the second, fourth or fifth phalanges. Head of the first distal phalanx i s absent. There are punctate calcifications in the soft tissues. This may be a postsurgical process r ather than bone destruction. Correlation is needed with surgical history. No acute metatarsal or tarsal finding. 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 Bone loss with pathologic fracture involving the head of the third proximal phalanx. The head of the first distal phalanx is absent. This is not clearly pathologic but needs correlation with surgical history. This is a new finding from December 2017.
[2018-06-29 13:57] LABS: Albumin 3.3 g/dL (3.4-5.0); Bilirubin Direct 0.2 mg/dL (0-0.2); Bilirubin Total 0.6 mg/dL (0.2-1.0); C-Reactive Protein 59.3 mg/L (<3.00); Potassium 3.6 mmol/L (3.5-5.1); Protein, Total 8.6 g/dL (6.4-8.2)
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
--- NOTE | 2018-06-29 16:14 | ER ---
Nurse's Notes [facility] Name: Nikos Corona Age: 52 yrs Sex: Male : 1965 Arrival Date: 06/29/2018 Time: 10:48 Bed 5 Private MD: Braulio Mendoza Diagnosis: Osteomyelitis of the left foot Presentation: 06/29 10:52 Presenting complaint: Patient states: sent from [facility]. c/o chills, malaise x 2 days. sv Prescribed Cipro and Clindamycin for OM on 3rd toe on left foot. Transition of care: patient was not received from another setting of care. Onset of symptoms was June 27, 2018. Care prior to arrival: None. 10:52 Method Of Arrival: Wheelchair sv 10:52 Acuity: YESI 3 sv 11:00 Risk Assessment: Do you want to hurt yourself or someone else? Patient reports no hb desire to harm self or others. Initial Sepsis Screen: Does the patient meet any 2 criteria? No. Patient's initial sepsis screen is negative. Does the patient have a suspected source of infection? No. Patient's initial sepsis screen is negative. Historical: - Allergies: 10:54 Rifampin; sv 10:54 Sulfa (Sulfonamide Antibiotics); sv - Home Meds: 15:06 mag oxide 40mg 1 tab PO BID [Active]; Tresiba SQ 20 units DAILY [Active]; Venlafazine ss 50 mg 1 tab PO BID [Active]; Lasix 40 mg 1 tab PO DAILY (EVENING) [Active]; Lasiz 40 mg 0.5 tab DAILY (MORNING) [Active]; Xarelto 20mg 1 tab PO DAILY [Active]; Victoza 1.2 SQ DAILY [Active]; Kdur 10 MEQ DAILY [Active]; Gabapentin 300 mg 3 tablets TID [Active]; Ambien 10 mg Oral tab 1 tab once daily [Active]; spironolactone 25 mg Oral tab 1 tab once daily [Active]; Cipro 500 mg Oral tab 1 tab every 12 hours [Active]; Cleocin 150 mg Oral cap 1 cap every 8 hours [Active]; - PMHx: 10:54 CHF; Diabetes - NIDDM; Hyperlipidemia; Hypertension; Myocardial infarction; sv - Immunization history:: Adult Immunizations up to date. - Ebola Screening: : No symptoms or risks identified at this time. - Social history:: Smoking status: Patient/guardian denies using tobacco. Screenin:52 Abuse screen: Denies threats or abuse. Denies injuries from another. Nutritional hb screening: No deficits noted. Tuberculosis screening: No symptoms or risk factors identified. Fall Risk None identified. Assessment: 11:20 General: Appears in no apparent distress. uncomfortable, ill, obese, well developed, sg well nourished, Behavior is calm, cooperative, appropriate for age. Pain: Complains of pain in left foot Pain does not radiate. Quality of pain is described as aching, tingling, throbbing. Neuro: No deficits noted. Cardiovascular: Heart tones S1 S2 present Capillary refill is brisk in bilateral fingers Patient's skin is warm and dry. Chest pain is denied. Respiratory: Airway is patent Respiratory effort is even, unlabored, Respiratory pattern is regular, symmetrical, Breath sounds are clear. GI: Abdomen is round non-distended. : No signs and/or symptoms were reported regarding the genitourinary system. EENT: No signs and/or symptoms were reported regarding the EENT system. Derm: Skin is pink, warm \T\ dry. Derm: Reports wound noted on left foot that is currently being treated by the [facility]. Musculoskeletal: Circulation, motion, and sensation intact. Range of motion: Swelling present in left foot. 12:15 Reassessment: Patient appears in no apparent distress at this time. Patient and/or hb family updated on plan of care and expected duration. Pain level reassessed. Patient is alert, oriented x 3, equal unlabored respirations, skin warm/dry/pink. 13:15 Reassessment: Patient appears in no apparent distress at this time. No changes from hb previously documented assessment. Patient and/or family updated on plan of care and expected duration. Pain level reassessed. Patient is alert, oriented x 3, equal unlabored respirations, skin warm/dry/pink. 14:30 Reassessment: Patient appears in no apparent distress at this time. No changes from hb previously documented assessment. Patient and/or family updated on plan of care and expected duration. Pain level reassessed. Patient is alert, oriented x 3, equal unlabored respirations, skin warm/dry/pink. Admission ordered, awaiting room assignment at this time. 14:58 Reassessment: Dr. Cheng at bedside. hb 15:19 Reassessment: Patient appears in no apparent distress at this time. No changes from hb previously documented assessment. Patient and/or family updated on plan of care and expected duration. Pain level reassessed. Patient is alert, oriented x 3, equal unlabored respirations, skin warm/dry/pink. 16:15 Reassessment: Patient appears in no apparent distress at this time. Patient and/or sg family updated on plan of care and expected duration. Pain level reassessed. Patient is alert, oriented x 3, equal unlabored respirations, skin warm/dry/pink. awaiting a bed assignment at this time, pt updated on POC and need for admission, pt stated understanding Patient states symptoms have not improved. 17:04 Reassessment: Patient appears in no apparent distress at this time. Patient and/or sg family updated on plan of care and expected duration. Pain level reassessed. Patient is alert, oriented x 3, equal unlabored respirations, skin warm/dry/pink. report given to Pamela RIOS for room 209, pt stated understanding Patient states symptoms have not improved. Vital Signs: 10:54 BP 98 / 72; Pulse 91; Resp 16; Temp 98; Pulse Ox 97% ; Weight 122.47 kg; Height 6 ft. 1 sv in. (185.42 cm); Pain 8/10; 11:45 BP 100 / 70; Pulse 92; Resp 15; Pulse Ox 100% on R/A; hb 13:00 BP 104 / 71; Pulse 100; Resp 16 S; Pulse Ox 98% on R/A; sg 14:00 BP 92 / 74; Pulse 90; Resp 16; Temp 98.2(O); Pulse Ox 100% on R/A; hb 15:00 BP 96 / 76; Pulse 92; Resp 16; Pulse Ox 100% on R/A; hb 16:41 BP 109 / 87; Pulse 90; Pulse Ox 97% on R/A; sg 10:54 Body Mass Index 35.62 (122.47 kg, 185.42 cm) sv ED Course: 10:48 Patient arrived in ED. as 10:49 Braulio Mendoza MD is Private Physician. as 10:53 Triage completed. sv 10:55 Arm band placed on left wrist. sv 10:55 Patient placed in an exam room, on a stretcher. sv 10:58 Axel Zhou MD is Attending Physician. kdr 11:52 Samantha Albert, RN is Primary Nurse. hb 11:52 Patient has correct armband on for positive identification. Bed in low position. Call hb light in reach. Side rails up X 1. 11:52 Inserted saline lock: 20 gauge in left antecubital area, using aseptic technique. Blood hb collected. 11:59 X-ray completed. Portable x-ray completed in exam room. Patient tolerated procedure jb2 well. 12:01 Chest Single View XRAY In Process Unspecified. EDMS 13:03 Foot Left 3 View XRAY In Process Unspecified. EDMS 16:13 Phoebe Roberts MD is Hospitalizing Provider. kdr 17:05 No provider procedures requiring assistance completed. Patient admitted, IV remains in sg place. intact, No redness/swelling at site. Administered Medications: 16:48 Not Given (Other Intervention Used): morphine 2 mg IVP once sg 16:55 Drug: morphine 2 mg Route: IVP; Site: left forearm; sg Outcome: 16:13 Decision to Hospitalize by Provider. kdr 17:02 Admitted to Med/surg accompanied by nurse, via wheelchair, room 209, with chart, Report sg called to Pamela RIOS 17:02 Condition: stable 17:02 Instructed on discharge instructions, follow up and referral plans. medication usage, safety practices, Demonstrated understanding of instructions, follow-up care. 17:13 Patient left the ED. sg Signatures: Dispatcher [employer] [facility] Janeth Natarajan RN RN Getachew Leblanc RN RN Axel Zhou MD MD kdr Vicente Coburn jb2 Maryse Machado Shelby, RN RN Samantha Albert, RN RN hb
--- NOTE | 2018-06-29 16:15 | EDPHYS ---
Physician Documentation [facility] Name: Nikos Corona Age: 52 yrs Sex: Male : 1965 Arrival Date: 06/29/2018 Time: 10:48 Bed 5 Private MD: Braulio Mendoza ED Physician Axel Zhou HPI: 06/29 18:41 This 52 yrs old Male presents to ER via Wheelchair with complaints of Wound kdr Check, Nausea. 18:41 Patient presents to ED for recheck of: abscess, cellulitis, Draining wound on left kdr third toe. The affected area is on the left third toe and Left third toenail. Previous treatment:. Progress: The patient reports no change in drainage, redness, swelling. The patient has experienced similar episodes in the past, chronically, but today's symptoms are worse. The patient has not recently seen a physician. Historical: - Allergies: 10:54 Rifampin; sv 10:54 Sulfa (Sulfonamide Antibiotics); sv - Home Meds: 15:06 mag oxide 40mg 1 tab PO BID [Active]; Tresiba SQ 20 units DAILY [Active]; Venlafazine ss 50 mg 1 tab PO BID [Active]; Lasix 40 mg 1 tab PO DAILY (EVENING) [Active]; Lasiz 40 mg 0.5 tab DAILY (MORNING) [Active]; Xarelto 20mg 1 tab PO DAILY [Active]; Victoza 1.2 SQ DAILY [Active]; Kdur 10 MEQ DAILY [Active]; Gabapentin 300 mg 3 tablets TID [Active]; Ambien 10 mg Oral tab 1 tab once daily [Active]; spironolactone 25 mg Oral tab 1 tab once daily [Active]; Cipro 500 mg Oral tab 1 tab every 12 hours [Active]; Cleocin 150 mg Oral cap 1 cap every 8 hours [Active]; - PMHx: 10:54 CHF; Diabetes - NIDDM; Hyperlipidemia; Hypertension; Myocardial infarction; sv - Immunization history:: Adult Immunizations up to date. - Ebola Screening: : No symptoms or risks identified at this time. - Social history:: Smoking status: Patient/guardian denies using tobacco. ROS: 18:41 Constitutional: Negative for fever, chills, and weight loss, Eyes: Negative for injury, kdr pain, redness, and discharge, Neck: Negative for injury, pain, and swelling, Cardiovascular: Negative for chest pain, palpitations, and edema, Respiratory: Negative for shortness of breath, cough, wheezing, and pleuritic chest pain, Abdomen/GI: Negative for abdominal pain, nausea, vomiting, diarrhea, and constipation, Back: Negative for injury and pain, : Negative for injury, bleeding, discharge, and swelling, Skin: Negative for injury, rash, and discoloration, Neuro: Negative for headache, weakness, numbness, tingling, and seizure activity. Psych: Negative for depression, anxiety, suicide ideation, homicidal ideation, and hallucinations, Allergy/Immunology: Negative for hives, rash, and allergies, Endocrine: Negative for neck swelling, polydipsia, polyuria, polyphagia, and marked weight changes, Hematologic/Lymphatic: Negative for swollen nodes, abnormal bleeding, and unusual bruising. 18:41 MS/extremity: Positive for decreased range of motion, erythema, pain, swelling, tenderness, of the left third toe and Left third toenail. Exam: 18:41 Constitutional: This is a well developed, well nourished patient who is awake, alert, kdr and in no acute distress. Head/Face: Normocephalic, atraumatic. Eyes: Pupils equal round and reactive to light, extra-ocular motions intact. Lids and lashes normal. Conjunctiva and sclera are non-icteric and not injected. Cornea within normal limits. Periorbital areas with no swelling, redness, or edema. Neck: Trachea midline, no thyromegaly or masses palpated, and no cervical lymphadenopathy. Supple, full range of motion without nuchal rigidity, or vertebral point tenderness. No Meningismus. Chest/axilla: Normal chest wall appearance and motion. Nontender with no deformity. No lesions are appreciated. Cardiovascular: Regular rate and rhythm with a normal S1 and S2. No gallops, murmurs, or rubs. Normal PMI, no JVD. No pulse deficits. Respiratory: Lungs have equal breath sounds bilaterally, clear to auscultation and percussion. No rales, rhonchi or wheezes noted. No increased work of breathing, no retractions or nasal flaring. Abdomen/GI: Soft, non-tender, with normal bowel sounds. No distension or tympany. No guarding or rebound. No evidence of tenderness throughout. Back: No spinal tenderness. No costovertebral tenderness. Full range of motion. Skin: Warm, dry with normal turgor. Normal color with no rashes, no lesions, and no evidence of cellulitis. Neuro: Awake and alert, GCS 15, oriented to person, place, time, and situation. Cranial nerves II-XII grossly intact. Motor strength 5/5 in all extremities. Sensory grossly intact. Cerebellar exam normal. Normal gait. Psych: Awake, alert, with orientation to person, place and time. Behavior, mood, and affect are within normal limits. 18:41 Musculoskeletal/extremity: Draining wound to dorsum of left third toe. Vital Signs: 10:54 BP 98 / 72; Pulse 91; Resp 16; Temp 98; Pulse Ox 97% ; Weight 122.47 kg; Height 6 ft. 1 sv in. (185.42 cm); Pain 8/10; 11:45 BP 100 / 70; Pulse 92; Resp 15; Pulse Ox 100% on R/A; hb 13:00 BP 104 / 71; Pulse 100; Resp 16 S; Pulse Ox 98% on R/A; sg 14:00 BP 92 / 74; Pulse 90; Resp 16; Temp 98.2(O); Pulse Ox 100% on R/A; hb 15:00 BP 96 / 76; Pulse 92; Resp 16; Pulse Ox 100% on R/A; hb 16:41 BP 109 / 87; Pulse 90; Pulse Ox 97% on R/A; sg 10:54 Body Mass Index 35.62 (122.47 kg, 185.42 cm) sv MDM: 16:13 Patient medically screened. kdr 18:41 Data reviewed: vital signs, nurses notes, lab test result(s), radiologic studies. kdr Counseling: I had a detailed discussion with the patient and/or guardian regarding: the historical points, exam findings, and any diagnostic results supporting the discharge/admit diagnosis, lab results, radiology results, the need for further work-up and treatment in the hospital. Physician consultation: Phoebe Robrets MD. 06/29 11:16 Order name: CBC with Diff; Complete Time: 13:18 kdr 06/29 11:16 Order name: Chem 7; Complete Time: 13:58 kdr 06/29 11:16 Order name: Amylase, Serum; Complete Time: 13:58 kdr 06/29 11:16 Order name: Blood Culture Adult (2) kdr 08 11:16 Order name: C-Reactive Protein; Complete Time: 13:58 kdr 08 11:16 Order name: Ckmb; Complete Time: 13:58 kdr 08 11:16 Order name: CPK; Complete Time: 13:58 kdr 08 11:16 Order name: Lactate; Complete Time: 13:18 kdr 08 11:16 Order name: LFT's; Complete Time: 13:58 kdr 08 11:16 Order name: Lipase; Complete Time: 13:58 kdr 08 11:16 Order name: Procalcitonin; Complete Time: 13:18 kdr 08 11:16 Order name: Protime (+inr); Complete Time: 13:18 kdr 08 11:16 Order name: Ptt, Activated; Complete Time: 13:18 kdr 08 11:16 Order name: Sed Rate; Complete Time: 13:18 kdr 08 11:16 Order name: Troponin (emerg Dept Use Only); Complete Time: 13:18 kdr 08 11:16 Order name: Chest Single View XRAY; Complete Time: 13:18 kdr 06/29 11:16 Order name: Accucheck; Complete Time: 13:40 kdr 08 11:16 Order name: Cardiac monitoring; Complete Time: 13:40 kdr 08 11:16 Order name: EKG - Nurse/Tech; Complete Time: 13:41 kdr 08 11:16 Order name: IV Saline Lock - Large Bore; Complete Time: 13:40 kdr 08 11:16 Order name: Labs collected and sent; Complete Time: 13:40 kdr 08 11:16 Order name: O2 Per Protocol; Complete Time: 13:40 kdr 08 11:16 Order name: O2 Sat Monitoring; Complete Time: 13:40 kdr 08 11:37 Order name: Foot Left 3 View XRAY; Complete Time: 13:54 kdr 08 13:20 Order name: BNP kdr Administered Medications: 16:48 Not Given (Other Intervention Used): morphine 2 mg IVP once sg 16:55 Drug: morphine 2 mg Route: IVP; Site: left forearm; sg Disposition: 06/29/18 16:13 Hospitalization ordered by Phoebe Roberts for Inpatient Admission. Preliminary diagnosis is Osteomyelitis of the left foot. - Bed requested for Telemetry/MedSurg (Inpatient). - Status is Inpatient Admission. sg - Condition is Fair. - Problem is an ongoing problem. - Symptoms are unchanged. UTI on Admission? No Signatures: Dispatcher [employer] EDMS Janeth Natarajan, RN BLANCA Beatriz Gupta RN RN dw Getachew Leblanc RN RN Axel Zhou MD MD [facility] Madie Durán RN RN Samantha Albert RN RN Corrections: (The following items were deleted from the chart) 16:34 16:13 Hospitalization Ordered by Phoebe Roberts MD for Inpatient Admission. Preliminary dw diagnosis is Osteomyelitis of the left foot. Bed requested for Telemetry/MedSurg (Inpatient). Status is Inpatient Admission. Condition is Fair. Problem is an ongoing problem. Symptoms are unchanged. UTI on Admission? No. kdr 17:13 16:34 06/29/2018 16:13 Hospitalization Ordered by Phoebe Roberts MD for Inpatient sg Admission. Preliminary diagnosis is Osteomyelitis of the left foot. Bed requested for Telemetry/MedSurg (Inpatient). Status is Inpatient Admission. Condition is Fair. Problem is an ongoing problem. Symptoms are unchanged. UTI on Admission? No. dw
[2018-06-29] MEDS ORDERED: MORPHINE 4 MG/ML SYR IV PRN (16:45)
[2018-06-29] MEDS ORDERED: MORPHINE 4 MG/ML SYR ONE (16:58)
[2018-06-29] MEDS ORDERED: VANCOMYCIN 1.25 GM in NA CHLORIDE 0.9% 250 ML IVPB SCH (17:12)
[2018-06-29] MEDS ORDERED: ACETAMINOPHEN 500 MG TAB PO PRN (17:12)
[2018-06-29] MEDS ORDERED: ONDANSETRON 4 MG/2 ML VIAL IV PRN (17:12)
[2018-06-29 17:27] VITALS: BMI 36.8
[2018-06-29] MEDS ORDERED: NITROGLYCERIN 0.4 MG/TAB SL PRN (17:44)
[2018-06-29] MEDS ORDERED: VENLAFAXINE HCL 50 MG PO PRN (17:44)
[2018-06-29] MEDS ORDERED: D50W 25 GM/50 ML SYRINGE IV PRN (17:59)
[2018-06-29] MEDS ORDERED: GLUCAGON 1 MG/VIAL IM PRN (17:59)
[2018-06-29] MEDS ORDERED: VANCOMYCIN 3 GM in NA CHLORIDE 0.9% 500 ML IVPB ONE (18:00)
[2018-06-29] MEDS: NA CHLORIDE 0.9% 1,000 ML IV SCH (18:14)
[2018-06-29] MEDS: INSULIN -REGULAR HUMAN 50 UNIT/0.5 ML ML SQ SCH (21:00)
[2018-06-29] MEDS: FUROSEMIDE 40 MG TABLET PO SCH (21:00)
[2018-06-29] MEDS: ATORVASTATIN 40 MG TAB PO SCH (21:00)
[2018-06-29] MEDS: MAGNESIUM OXIDE 400 MG TAB PO SCH (21:00)
[2018-06-29] MEDS: HYDROCODONE/APAP 10/325 TAB PO SCH (21:01)
[2018-06-29] MEDS: ZOLPIDEM TARTRATE 10 MG TABLET PO SCH (21:01)
[2018-06-29] MEDS: GABAPENTIN 300 MG CAP PO SCH (21:02)
[2018-06-29] MEDS: PIPER/TAZO/NS 3.375gm 3.375 GM/100 ML BAG IVPB SCH (21:02)
--- NOTE | 2018-06-29 21:43 | CON ---
Date of Consultation: 06/29/2018 Reason: Left third toe infection. History Of Present Illness: The patient is a 52-year-old gentleman who I saw on June 05 of this ye ar with an infected left third toe. I was awaiting an MRI that was pending and he recently had been diagnosed with a left popliteal DVT, so he needed to be anticoagulated but based on his MRI findings most likely patient would not require a left third toe transmetatarsal amputation at that time. López brayden, he had left AMA as he had some family issues that needed immediate attention. He returns today with chills, no fever. He is still having an open wound with pus oozing from the left third toe and has not gotten any better. He had been on oral antibiotics as an outpatient. He had seen Dr. Goldsmith as an outpatient. Review of Systems: Otherwise unremarkable. There is no left groin adenopathy. Past Medical History: Significant for coronary artery disease, hypertension, GERD, type 2 diabetes, neuropathy, hyperlipidemia, chronic pain, and CA. Past Surgical History: Right foot surgery, defibrillator, cholecystectomy. Allergies: INCLUDE BACTRIM, RIFAMPIN. Social History: He does smoke. Denies drinking. Family History: Noncontributory. Physical Examination: Vital Signs: Currently his vital signs are stable. He is afebrile. General: He is awake, alert, and oriented x3. Head and neck: Cranial nerves 2 through 12 are grossly within normal limits. No neck masses. No JV D. Throat clear. Neck is supple. Chest: Clear. Heart: S1, S2. Abdomen: Soft. Extremities: The patient has bilateral lower extremity lymphedema. He has palpable dorsalis pedis a nd posterior tibial pulses however. On left third toe, he has an open wound at the tip and another w ound on the dorsum and both are oozing pus and the toe itself is very fragile. There is minimal eryt juarez or warmth proximal to this toe, however. 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 Bone loss with pathological fracture involving the head of the third proximal phalanx, but head of the first distal phalanx is absent but patient does not have any symptoms in this area. They have been previously removed. Laboratory Data: His white count is 14.4, with a left shift. His sed rate is 76. He is on Xarelto, so his coags are significant for INR of 2.44. Chemistry reviewed. Glucose is slightly elevated. H is procalcitonin is less than 0.05. Assessment: A 52-year-old gentleman with osteomyelitis, nonhealing infected wound, left third toe. Recommendations: Admit and hold the Xarelto. Patient requires IV antibiotics and then left third tr ansmetatarsal amputation. The wound will have to be left open because of the infection I believe sec ondarily. Plan of care is discussed in detail with the patient. He will follow up with me in the [facility] upon discharge. Once he gets cultures results on this infected wound, appropriate or al antibiotics will be prescribed to the patient prior to discharge. We will follow this patient ely campbell in the hospital. ANGY/GERHARD Voice ID: [id number] Report ID: [id number]
--- NOTE | 2018-06-29 22:09 | RAD REPORT ---
EXAM DESCRIPTION: VAS - Extrem Venous W Compress Faraz - 06/29/2018 9:57 pm CLINICAL HISTORY: DVT, follow-up from June 05 imaging COMPARISON: DVT study June 05 TECHNIQUE: Real-time sonographic evaluation of the bilateral lower extremity deep venous systems was performed. FINDINGS: Normal compressibility, flow augmentation, phasic flow and spontaneous flow are identified in the left and right lower extremity common femoral, superficial femoral, popliteal and posterior t ibial veins. . No intraluminal filling defects seen. DVT previously seen in the left popliteal vein h as resolved. IMPRESSION: No DVT in either lower extremity. Prior thrombus seen June 05 has resolved.
--- NOTE | 2018-06-29 22:13 | RAD REPORT ---
EXAM DESCRIPTION: VAS - Lower Extremity Arterial Bilat - 06/29/2018 9:57 pm CLINICAL HISTORY: Leg pain, DVT COMPARISON: December 2017 TECHNIQUE: Grayscale and Doppler interrogation performed. Waveforms were obtained along the length o f each lower extremity. Visual inspection of the lower extremity arterial tree performed. FINDINGS: No new occlusion or flow restricting lesion identifiable. Triphasic waveform patterns were seen along the length of each lower extremity. Common femoral artery velocities were 93 cm/second on the right and 81 cm/second on the left. Superfi cial femoral velocity was 56 cm/second on the right and 64 cm/second on the left. Popliteal artery was 59 cm/seconds on the right and 117 cm/second on the left. The significant asymme try and the significant change from December is believed to be more technical. Visual inspection did not show a significant change in the left popliteal artery. Dorsalis pedis and posterior tibial artery velocities were 52 cm/second on the right on the right and measuring 74 cm/second and 90 cm/second on the left, respectively. IMPRESSION: No significant lower extremity peripheral arterial disease. As detailed above, no true c hange in the arterial tree suspected since the December study.
[2018-06-29 23:38] LABS: Urine Appearance CLEAR; Urine Bilirubin NEGATIVE (NEG); Urine Blood NEGATIVE (NEG); Urine Color YELLOW; Urine Glucose TRACE (NEG); Urine Protein 1+ (NEG); Urine Specific Gravity 1.025 (1.005-1.030); Urine Urobilinogen 0.2 mg/dL (0.2-1.0); Urine pH 5.5 (5.0-7.0)
[2018-06-29 23:41] LABS: Urine Microscopic Reflex ORDER UMIC
[2018-06-30 00:09] LABS: Urine Amorphous Sediment TRACE /HPF (NONE SEEN); Urine Bacteria <20 /HPF (NONE SEEN); Urine Culture Reflex Order NOT NEEDED; Urine RBC NONE SEEN /HPF (NONE SEEN)
[2018-06-30 00:10] LABS: Urine Sperm PRESENT (NONE SEEN)
[2018-06-30] MEDS: HYDROCODONE/APAP 10/325 TAB PO SCH ×5 (04:47→20:32)
[2018-06-30] MEDS: NA CHLORIDE 0.9% 1,000 ML IV SCH ×3 (04:49→23:36)
[2018-06-30 04:51] LABS: Absolute Lymphocytes (CBC) 1.9 K/uL (0.7-4.9); Absolute Monocytes 1.2 K/uL (0.1-1.3); Absolute Neutrophil 13.6 K/uL (1.8-8.0); Basophils % 0.8 % (0-1.3); Eosinophils % 2.1 % (0-4.4); Lymphocytes % 11.2 % (15.3-44.8); MPV 7.7 fL (7.6-11.3); Monocytes % 7.2 % (3.3-12.3)
[2018-06-30 04:58] LABS: Protime INR 1.54
[2018-06-30 05:13] LABS: Albumin 3.1 g/dL (3.4-5.0); Bilirubin Total 0.8 mg/dL (0.2-1.0); Magnesium 1.5 mg/dL (1.8-2.4); Phosphorus 3.8 mg/dL (2.5-4.9); Potassium 3.4 mmol/L (3.5-5.1); Protein, Total 7.9 g/dL (6.4-8.2)
[2018-06-30] MEDS: VANCOMYCIN 2 GM in NA CHLORIDE 0.9% 500 ML IVPB SCH ×3 (06:08→17:44)
[2018-06-30] MEDS ORDERED: MAGNESIUM SULFATE 1 gm IVPB 1 GM/100 ML BAG IV ONE (06:46)
[2018-06-30] MEDS: KCL 20 MEQ/100 mL IVPB 20 MEQ/100 ML BAG IV SCH ×2 (07:00→09:00)
[2018-06-30] MEDS: INSULIN -REGULAR HUMAN 50 UNIT/0.5 ML ML SQ SCH ×5 (07:30→20:30)
[2018-06-30] MEDS: PANTOPRAZOLE 40MG TABLET PO SCH (07:30)
[2018-06-30] MEDS: CARVEDILOL 12.5 MG TAB PO SCH ×2 (08:00→17:33)
[2018-06-30] MEDS: MAGNESIUM OXIDE 400 MG TAB PO SCH ×2 (08:31→20:33)
[2018-06-30] MEDS ORDERED: LORazepam 2 MG/ML VIAL IV ONE (08:54)
[2018-06-30] MEDS: FUROSEMIDE 40 MG TABLET PO SCH ×2 (09:00→20:30)
[2018-06-30] MEDS: ISOSORBIDE MONO SR 60 MG TAB PO SCH (09:00)
[2018-06-30] MEDS: GABAPENTIN 300 MG CAP PO SCH ×3 (09:00→20:33)
[2018-06-30] MEDS: PIPER/TAZO/NS 3.375gm 3.375 GM/100 ML BAG IVPB SCH ×2 (09:00→20:34)
[2018-06-30] MEDS: SPIRONOLACTONE 25 MG TABLET PO SCH (09:00)
[2018-06-30] MEDS ORDERED: HOME MED 1 EA UNK (Omeprazole [Omeprazole] 20 MG) PO SCH (09:00)
[2018-06-30] MEDS ORDERED: KETAMINE HCL 500 MG/5 ML VIAL ONE (10:40)
[2018-06-30] MEDS ORDERED: MIDAZOLAM HCL 2 MG/2 ML INJ ONE (10:40)
[2018-06-30] MEDS ORDERED: PROPOFOL 200 MG/20 ML VIAL IV ONE (11:01)
--- NOTE | 2018-06-30 11:11 | P.OP ---
Preoperative diagnosis: Infected Left foot 3rd toe with Osteomyelitis Postoperative diagnosis: same Primary procedure: Left 3rd toe T-M Amputation Anesthesia: MAC Estimated blood loss: min Specimen: Left third toe and pus Findings: as above Complications: None Transferred to: Recovery Room Condition: Good
[2018-06-30 11:28] VITALS: O2SAT 97
[2018-06-30] MEDS ORDERED: ALPRAZOLAM 0.25 MG TABLET PO ONE (11:58)
--- NOTE | 2018-06-30 13:30 | P.PN ---
Subjective Date of Service: 06/30/18 Primary Care Provider: Dr Goldsmith Podiatry Chief Complaint: Chills and Rigors Subjective: New changes (s/p amputation of the third toe. Patient is very distressed.) Review of Systems is unable to be obtained (Patient is very tearful about the loss of his toe) Physical Examination - Vital Signs Temperature: 98.5 F Blood Pressure: 152/70 Pulse: 93 Respirations: 16 Pulse Ox (%): 96 - Physical Exam General: Alert, In no apparent distress HEENT: Atraumatic, PERRLA, EOMI Neck: Supple, JVD not distended Respiratory: Clear to auscultation bilaterally, Normal air movement Cardiovascular: Regular rate/rhythm, Normal S1 S2 Gastrointestinal: Normal bowel sounds, No tenderness Musculoskeletal: No tenderness Integumentary: No rashes Neurological: Normal speech, Normal tone, Normal affect Lymphatics: No axilla or inguinal lymphadenopathy - Studies Laboratory Data (last 24 hrs) 06/29/18 11:45: Sodium 136, Potassium 3.6, BUN 17, Creatinine 1.10, Glucose 208 H, Total Bilirubin 0.6, AST 21, ALT 22, Alkaline Phosphatase 61, Amylase 24 L, Lipase 117 Assessment & Plan - Problems (Diagnosis) (1) Toe osteomyelitis, left Current Visit: Yes Status: Acute Plan: s/p amputation. He is grieving this at this time. Will give him some xanax for the day. (2) DVT (deep venous thrombosis) Onset Date: 06/30/18 Current Visit: No Status: Chronic Plan: was on xarelto. Should be held for now. Can restart it 48 hours after surgery. Qualifiers: DVT location: lower extremity Chronicity: chronic Laterality: left (3) Diabetes mellitus Onset Date: 06/08/18 Current Visit: No Status: Chronic Plan: will order a a1c. Start him on sliding scale insulin. will also check his lipid profile. Qualifiers: Diabetes mellitus type: type 2 Diabetes mellitus machine long goods helper insulin use: without chcf use Diabetes mellitus complication detail: with peripheral angiopathy without gangrene (4) PVD (peripheral vascular disease) Onset Date: 06/08/18 Current Visit: No Status: Chronic Plan: s/p amputation (5) Tobacco abuse Onset Date: 06/08/18 Current Visit: No Status: Chronic Plan: Have discussed in the past. Will await the patient being in a better mood for treatment Discharge Plan: Home Plan to discharge in: 48 Hours - Code Status/Comfort Care Code Status Assessed: No Code Status: Full Code Physician Review: Patient Assessed, Agree with Above Assessment and Plan Critical Care: No Time Spent Managing Pts Care (In Minutes): 30
[2018-06-30] MEDS ORDERED: ALPRAZOLAM 0.5 MG TABLET PO PRN (20:22)
[2018-06-30] MEDS: ATORVASTATIN 40 MG TAB PO SCH (20:34)
[2018-06-30] MEDS: ZOLPIDEM TARTRATE 10 MG TABLET PO SCH (20:35)
--- NOTE | 2018-06-30 22:39 | OP ---
Date of Procedure: 06/30/2018 Surgeon: Owen Cheng MD Preoperative Diagnosis: Infected wound of left third toe with osteomyelitis. Postoperative Diagnosis: Infected wound of left third toe with osteomyelitis. Procedure: Left third toe transmetatarsal amputation. Estimated Blood Loss: Minimal. Specimen: Pus in the left third toe. Anesthesia: MAC. Complications: None. Disposition: The patient tolerated the procedure in stable condition and taken to Recovery Room in g ood general condition. Procedure In Detail: The patient was brought to the OR and placed in supine position. MAC anesthesi a was begun. The patient was prepped and draped in the usual sterile fashion. Marcaine 0.5% was inf iltrated locally. A 15 blade was used to cut around the web space around the third toe all the way d own to the dorsum of the foot on the plantar aspect. Subcutaneous tissue was divided. The entire th ird toe was removed. The bone was very brittle, came out with no difficulty at all. The metatarsal head was identified. The head was excised and debrided. Smooth edges were obtained. Wound was irri gated. Bleeding was controlled with cautery. Wet-to-dry normal saline dressing change applied. The patient tolerated the procedure in stable condition and taken to Recovery Room in good general condition. /MODL Voice ID: [id number] Report ID: [id number]
[2018-07-01 05:23] LABS: Absolute Lymphocytes (CBC) 2.3 K/uL (0.7-4.9); Absolute Monocytes 1.1 K/uL (0.1-1.3); Absolute Neutrophil 8.7 K/uL (1.8-8.0); Basophils % 0.9 % (0-1.3); Eosinophils % 5.2 % (0-4.4); Hematocrit 31.5 % (39.6-49.0); Lymphocytes % 17.7 % (15.3-44.8); MCH 32.9 pg (27.0-35.0); MCV 92.8 fL (80-100); MPV 7.7 fL (7.6-11.3); Monocytes % 8.4 % (3.3-12.3)
[2018-07-01 05:26] LABS: Protime INR 1.19
[2018-07-01] MEDS: NA CHLORIDE 0.9% 1,000 ML IV SCH (06:00)
[2018-07-01 07:03] LABS: ALT/SGPT 20 U/L (12-78); AST/SGOT 14 U/L (15-37); Albumin 2.7 g/dL (3.4-5.0); Alkaline Phosphatase 54 U/L (45-117); BUN Blood Urea Nitrogen 18 mg/dL (7-18); Bicarbonate 29 mmol/L (21-32); Bilirubin Total 0.3 mg/dL (0.2-1.0); Glucose Level 216 mg/dL (74-106); HDL Cholesterol 34 mg/dL (40-60); LDL Cholesterol, Calculated 16 (<130); Magnesium 1.6 mg/dL (1.8-2.4); Phosphorus 3.2 mg/dL (2.5-4.9); Potassium 3.4 mmol/L (3.5-5.1); Protein, Total 7.3 g/dL (6.4-8.2); Sodium Level 139 mmol/L (136-145)
[2018-07-01] MEDS: VANCOMYCIN 2 GM in NA CHLORIDE 0.9% 500 ML IVPB SCH (07:32)
[2018-07-01] MEDS: CARVEDILOL 12.5 MG TAB PO SCH (07:59)
[2018-07-01] MEDS: HYDROCODONE/APAP 10/325 TAB PO SCH (08:00)
[2018-07-01] MEDS: MAGNESIUM OXIDE 400 MG TAB PO SCH (08:00)
[2018-07-01] MEDS: PANTOPRAZOLE 40MG TABLET PO SCH (08:00)
[2018-07-01] MEDS: ISOSORBIDE MONO SR 60 MG TAB PO SCH (08:00)
[2018-07-01] MEDS: SPIRONOLACTONE 25 MG TABLET PO SCH (08:00)
[2018-07-01] MEDS: GABAPENTIN 300 MG CAP PO SCH (08:01)
[2018-07-01] MEDS: FUROSEMIDE 40 MG TABLET PO SCH (08:01)
[2018-07-01] MEDS: INSULIN -REGULAR HUMAN 50 UNIT/0.5 ML ML SQ SCH (08:02)
--- NOTE | 2018-07-01 08:56 | P.DS ---
Admission Date: 06/29/18 Discharge Date: 07/01/18 Primary Care Provider: Dr Goldsmith Podiatry Disposition: ROUTINE DISCHARGE Discharge Condition: FAIR Reason for Admission: Chills and Rigors - Problems (1) Toe osteomyelitis, left Current Visit: Yes Status: Acute (2) DVT (deep venous thrombosis) Onset Date: 06/30/18 Current Visit: No Status: Chronic Qualifiers: DVT location: lower extremity Chronicity: chronic Laterality: left (3) Diabetes mellitus Onset Date: 06/08/18 Current Visit: No Status: Chronic Qualifiers: Diabetes mellitus type: type 2 Diabetes mellitus long chain beamer insulin use: without fpc use Diabetes mellitus complication detail: with peripheral angiopathy without gangrene (4) PVD (peripheral vascular disease) Onset Date: 06/08/18 Current Visit: No Status: Chronic (5) Tobacco abuse Onset Date: 06/08/18 Current Visit: No Status: Chronic Brief History of Present Illness: Patient was admitted for osteomyelitis. Was admitted by the hosptial and consult to Dr. Cheng Hospital Course: Patient had his toe amputated by Dr. Cheng. He had good margins and good blood flow. Post op was refusing fluids and antibiotics. Was rude to the staff. Went downstairs to smoke. Discussed this with him this morning. He states it was his anxiety and the staffs fault. Will complete his antibiotics today. Keep him on oral antibiotics. Discharge home with home health. Have the patient follow up in wound care center with Dr. Cheng Vital Signs/Physical Exam: Temp Pulse Resp BP Pulse Ox 98.1 F 87 20 126/75 94 07/01/18 04:00 07/01/18 08:01 07/01/18 04:00 07/01/18 08:01 07/01/18 04:00 General: Alert, In no apparent distress HEENT: Atraumatic, PERRLA, EOMI Neck: Supple, JVD not distended Respiratory: Clear to auscultation bilaterally, Normal air movement Cardiovascular: Regular rate/rhythm, Normal S1 S2 Gastrointestinal: Normal bowel sounds, No tenderness Musculoskeletal: No tenderness Integumentary: No rashes Neurological: Normal speech, Normal tone, Normal affect Lymphatics: No axilla or inguinal lymphadenopathy Laboratory Data at Discharge: WBC 12.8 K/uL (4.3-10.9) H D 07/01/18 04:45 Hgb 11.2 g/dL (13.6-17.9) L 07/01/18 04:45 Hct 31.5 % (39.6-49.0) L 07/01/18 04:45 Plt Count 295 K/uL (152-406) 07/01/18 04:45 PT 14.1 SECONDS (9.5-12.5) H 07/01/18 04:45 INR 1.19 07/01/18 04:45 APTT 33.2 SECONDS (24.3-36.9) 07/01/18 04:45 Sodium 139 mmol/L (136-145) 07/01/18 04:45 Potassium 3.4 mmol/L (3.5-5.1) L 07/01/18 04:45 BUN 18 mg/dL (7-18) 07/01/18 04:45 Creatinine 0.80 mg/dL (0.55-1.3) 07/01/18 04:45 Glucose 216 mg/dL (74-106) H 07/01/18 04:45 Phosphorus 3.2 mg/dL (2.5-4.9) 07/01/18 04:45 Magnesium 1.6 mg/dL (1.8-2.4) L 07/01/18 04:45 Total Bilirubin 0.3 mg/dL (0.2-1.0) 07/01/18 04:45 AST 14 U/L (15-37) L 07/01/18 04:45 ALT 20 U/L (12-78) 07/01/18 04:45 Alkaline Phosphatase 54 U/L (45-117) 07/01/18 04:45 Triglycerides 94 mg/dL (<150) 07/01/18 04:45 Cholesterol 69 mg/dL (<200) 07/01/18 04:45 HDL Cholesterol 34 mg/dL (40-60) L 07/01/18 04:45 Cholesterol/HDL Ratio 2.03 07/01/18 04:45 Amylase 24 U/L (25-115) L 06/29/18 11:45 Lipase 117 U/L (73-393) 06/29/18 11:45 Home Medications: Atorvastatin Calcium [Lipitor] 40 mg PO BEDTIME 01/13/18 Carvedilol 12.5 mg PO BIDWM 01/13/18 Clopidogrel Bisulfate [Plavix*] 75 mg PO DAILY 01/13/18 Gabapentin [Neurontin*] 900 mg PO TID 01/13/18 Hydrocodone Bit/Acetaminophen [Hydrocodon-Acetaminophn 10-325] 1 tab PO QID Omeprazole 20 mg PO DAILY 01/13/18 Venlafaxine HCl [Effexor] 50 mg PO BIDP PRN 01/13/18 Zolpidem Tartrate [Ambien*] 10 mg PO BEDTIME 01/13/18 Spironolactone [Aldactone*] 25 mg PO DAILY #30 tab 01/14/18 Furosemide 40 mg PO BEDTIME 06/05/18 Furosemide [Lasix] 60 mg PO DAILY 06/05/18 Insulin Degludec [Tresiba Flextouch U-100] 20 unit SQ DAILY 06/05/18 Isosorbide Mononitrate [Isosorbide Mononitrate ER] 60 mg PO DAILY 06/05/18 Liraglutide [Victoza 2-Flynn] 1.2 mg SQ DAILY 06/05/18 Magnesium Oxide [Mag 0X Tab] 400 mg PO BID 06/05/18 Nitroglycerin [Nitrostat] 0.4 mg SL PRN PRN 06/05/18 Potassium Chloride [Klor-Con 10] 10 meq PO DAILY 06/05/18 Clindamycin HCl [Cleocin HCl] 300 mg PO Q6HR 7 Days #28 capsule 07/01/18 Furosemide [Lasix] 20 mg PO [id number] 30 Days #30 tablet 07/01/18 Smz./Tmp. [Bactrim Ds 800 MG/160 MG] 1 tab PO BID 14 Days #28 tab 07/01/18 Tramadol HCl [Ultram] 50 mg PO TID PRN 7 Days #20 tablet 07/01/18 New Medications: Clindamycin HCl [Cleocin HCl] 300 mg PO Q6HR 7 Days #28 capsule Furosemide [Lasix] 20 mg PO [id number] 30 Days #30 tablet Smz./Tmp. [Bactrim Ds 800 MG/160 MG] 1 tab PO BID 14 Days #28 tab Tramadol HCl [Ultram] 50 mg PO TID PRN 7 Days #20 tablet PRN Reason: Pain Scale 5-7 (Moderate) Patient Discharge Instructions: please arrange home health for wound care Diet: ADA Activity: Ad tonya Followup: Owen Cheng MD [ACTIVE - CAN ADMIT] - 1 Week (in the wound care center) Braulio Mendoza MD [Primary Care Provider] - 1-2 Weeks
[2018-07-01] MEDS ORDERED: POTASSIUM 25 MEQ EFFERV TAB PO ONE (09:00)
[2018-07-01] MEDS: PIPER/TAZO/NS 3.375gm 3.375 GM/100 ML BAG IVPB SCH (09:00)
[2018-07-01] MEDS ORDERED: MAGNESIUM SULFATE 1 gm IVPB 1 GM/100 ML BAG IV ONE (10:00)
--- NOTE | 2018-07-01 12:40 | PN ---
Date of Progress Note: 07/01/2018 Subjective: The patient is awake, alert. No complaint. Objective: Vital signs: Stable, afebrile. Extremities: Dressing is clean and dry. Laboratory Data: Reviewed. Leukocytosis is improving. Cultures are pending. Assessment: Status post left third toe transmetatarsal amputation. Recommendation: Continue IV antibiotics for the time being. When the sensitivities come back, he ca n be switched to oral antibiotics. Wound care as ordered. [facility] upo n discharge. /MODL Voice ID: [id number] Report ID: [id number]
[2018-07-01 14:25] VITALS: BP 109/69; TEMP 97.8
[2018-07-01] MEDS ORDERED: VANCOMYCIN 2.25 GM in NA CHLORIDE 0.9% 500 ML IVPB SCH (18:00)
== END 2018-07-01 12:15 | disposition home health service (06) | DRG 617 ==
LOC: ER 10:43 → OBSVTOIN 16:14 → ERHOLD 16:14 → 2ND 17:10
PROVIDERS: ADMIT Internal Medicine; ATTEND Internal Medicine
PROC: 0Y6U0Z0 Detachment at Left 3rd Toe, Complete, Open Approach (ICD-10-PCS; principal; 2018-06-30 10:45)
DX: E11.69 Type 2 diabetes mellitus with other specified complication (principal); M86.172 Other acute osteomyelitis, left ankle and foot; I50.32 Chronic diastolic (congestive) heart failure; L03.032 Cellulitis of left toe; F17.210 Nicotine dependence, cigarettes, uncomplicated; E11.51 Type 2 diabetes mellitus with diabetic peripheral angiopathy without gangrene; I25.10 Atherosclerotic heart disease of native coronary artery without angina pectoris; K21.9 Gastro-esophageal reflux disease without esophagitis; E11.40 Type 2 diabetes mellitus with diabetic neuropathy, unspecified; G89.29 Other chronic pain; I25.2 Old myocardial infarction; Z95.810 Presence of automatic (implantable) cardiac defibrillator; Z79.02 Long term (current) use of antithrombotics/antiplatelets; Z79.4 Long term (current) use of insulin; Z88.1 Allergy status to other antibiotic agents; E66.9 Obesity, unspecified; Z68.35 Body mass index [BMI] 35.0-35.9, adult; I11.0 Hypertensive heart disease with heart failure; E78.2 Mixed hyperlipidemia; E66.01 Morbid (severe) obesity due to excess calories; E11.65 Type 2 diabetes mellitus with hyperglycemia; Z91.19 Patient's noncompliance with other medical treatment and regimen; Z95.5 Presence of coronary angioplasty implant and graft; F41.9 Anxiety disorder, unspecified; Z86.718 Personal history of other venous thrombosis and embolism; F17.200 Nicotine dependence, unspecified, uncomplicated
CPT/HCPCS: 11043; 36415; 71045; 80048; 80053; 80061; 80076; 80202; 81003; 81015; 82150; 82550; 82553; 82962; 83036; 83605; 83690; 83735; 83880; 84100; 84145; 84443; 84484; 85025; 85610; 85652; 85730; 86140; 87040; 87070; 87075; 87077; 87186; 87205; 88305; 88311; 93925; 93970; 96374; 99285; J2250; J2543; J3475; J7030

== ENCOUNTER 2018-10-24 12:16 | Emergency (ER) | payer OTHER ==
[2018-10-24] MEDS ORDERED: HYDROCODONE/APAP 10/325 TAB ONE (13:17)
--- NOTE | 2018-10-24 13:23 | RAD REPORT ---
EXAM DESCRIPTION: RAD - Forearm Left - 10/24/2018 1:06 pm CLINICAL HISTORY: Pain;Deformity COMPARISON: No comparisons FINDINGS: Fracture of the distal shaft of the ulna is seen with minimal displacement. No dislocation is seen. Moderate adjacent soft tissue swelling evident.
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
[2018-10-24 15:51] VITALS: TEMP 98.1; O2SAT 100
== END 2018-10-24 13:51 | disposition home or self-care (01) ==
LOC: ER 12:16
PROC: 2W3DX1Z Immobilization of Left Lower Arm using Splint (ICD-10-PCS; principal; 2018-10-24)
DX: S52.202A Unspecified fracture of shaft of left ulna, initial encounter for closed fracture (principal); W22.8XXA Striking against or struck by other objects, initial encounter; Z72.0 Tobacco use
CPT/HCPCS: 99283

== ENCOUNTER 2019-03-30 04:55 | Emergency (ER) | payer OTHER ==
--- OUTSIDE RECORDS SUMMARY | 2019-03-30 04:58 | XMS REPORT ---
:1965 [facility] Address [address] [place] [address] Dr. Crisostomo [address] [place] [id number] Care Team Providers Name Role Phone Unavailable Unavailable Unavailable Problems This patient has no known problems. Allergies, Adverse Reactions, Alerts This patient has no known allergies or adverse reactions. Medications This patient has no known medications.
[2019-03-30] MEDS ORDERED: MEPERIDINE HCL 50 MG/ML AMP ONE (05:43)
[2019-03-30] MEDS ORDERED: ONDANSETRON 4 MG/2 ML VIAL ONE (05:43)
--- NOTE | 2019-03-30 07:05 | ER ---
Nurse's Notes [facility] Name: Nikos Corona Age: 53 yrs Sex: Male : 1965 Arrival Date: 03/30/2019 Time: 04:56 Bed 16 Private MD: Diagnosis: Acute low back pain. Moderate spondylosis of the lumbar spine Presentation: 03/30 05:10 Presenting complaint: Patient states: started 1 month ago low back pain going to my rr5 butt and right leg. pain score of 10/10. it gets worst today denies any trauma. Transition of care: patient was not received from another setting of care. Onset of symptoms was March 30, 2019. Risk Assessment: Do you want to hurt yourself or someone else? Patient reports no desire to harm self or others. Initial Sepsis Screen: Does the patient meet any 2 criteria? No. Patient's initial sepsis screen is negative. Does the patient have a suspected source of infection? No. Patient's initial sepsis screen is negative. Note facial grimace noted. Care prior to arrival: None. 05:10 Method Of Arrival: Wheelchair rr5 05:10 Acuity: YESI 3 rr5 Historical: - Allergies: 05:10 Rifampin; rr5 05:10 Sulfa (Sulfonamide Antibiotics); rr5 - Home Meds: 05:10 Ambien 10 mg Oral tab 1 tab once daily [Active]; atorvastatin Oral [Active]; Cipro 500 rr5 mg Oral tab 1 tab every 12 hours [Active]; Cleocin 150 mg Oral cap 1 cap every 8 hours [Active]; clopidogrel 75 mg Oral tab 1 tab once daily [Active]; gabapentin Oral [Active]; Gabapentin 300 mg 3 tablets TID [Active]; Glipizide Oral [Active]; Isosorbide Mononitrate Oral [Active]; Kdur 10 MEQ DAILY [Active]; Lasix 40 mg 1 tab PO DAILY (EVENING) [Active]; Lasiz 40 mg 0.5 tab DAILY (MORNING) [Active]; mag oxide 40mg 1 tab PO BID [Active]; morphine 15 mg Oral tab 1 tab daily [Active]; Colt 10-325 mg Oral tab 1 tab every 6 hours [Active]; Omeprazole Oral [Active]; spironolactone 25 mg Oral tab 1 tab once daily [Active]; Spironolactone Oral [Active]; Tresiba SQ 20 units DAILY [Active]; Venlafazine 50 mg 1 tab PO BID [Active]; Victoza 1.2 SQ DAILY [Active]; Xarelto 20mg 1 tab PO DAILY [Active]; Zolpidem Tartrate Oral [Active]; - PMHx: 05:10 CHF; Diabetes - NIDDM; Hyperlipidemia; Hypertension; Myocardial infarction; PTSD; rr5 - PSHx: 05:10 FEMUR SURGERY; TIBIA FIBULA SURGERY; Knee surgery; BACK SURGERY; rr5 - Immunization history:: Adult Immunizations. - Social history:: Smoking status: Patient uses tobacco products, 15 STICKS, Patient/guardian denies using alcohol, street drugs. - Ebola Screening: : Patient negative for fever greater than or equal to 101.5 degrees Fahrenheit, and additional compatible Ebola Virus Disease symptoms Patient denies exposure to infectious person Patient denies travel to an Ebola-affected area in the 21 days before illness onset. Screenin:40 Abuse screen: Denies threats or abuse. Denies injuries from another. Nutritional rr5 screening: No deficits noted. Tuberculosis screening: No symptoms or risk factors identified. Fall Risk IV access (20 points). Gait- Impaired (20 pts.). Total Baron Fall Scale indicates Low Risk Score (25-44 pts). Fall prevention measures have been instituted. Side Rails Up X 2 Placed close to Nursing Station Frequent Obs/Assesments occuring Family Present and informed to notify staff if they need to leave bedside As available Patient and Family Educated on Fall Prevention Program and strategies. Assessment: 05:10 General: Appears in no apparent distress. uncomfortable, ill, Behavior is calm, rr5 cooperative, appropriate for age. 05:10 Pain: Complains of pain in LOW BACK Pain radiates to buttocks and right leg Pain rr5 currently is 10 out of 10 on a pain scale. Quality of pain is described as aching, Pain began gradually, Is intermittent. Neuro: Level of Consciousness is awake, alert, obeys commands, Oriented to person, place, time, situation, Appropriate for age. Cardiovascular: Capillary refill < 3 seconds Patient's skin is warm and dry. Respiratory: Airway is patent Respiratory effort is even, unlabored, Respiratory pattern is regular, symmetrical. GI: No signs and/or symptoms were reported involving the gastrointestinal system. : No signs and/or symptoms were reported regarding the genitourinary system. EENT: No signs and/or symptoms were reported regarding the EENT system. Derm: Skin is intact, Skin temperature is warm. Musculoskeletal: Capillary refill < 3 seconds, Range of motion: intact in all extremities, Swelling present in right leg and left leg Reports pain in left low back, right low back, buttocks and right leg. 05:44 Reassessment: Patient appears in no apparent distress at this time. Patient is alert, rr5 oriented x 3, equal unlabored respirations, skin warm/dry/pink. went to CT scan. 06:00 Reassessment: Patient appears in no apparent distress at this time. Patient is alert, rr5 oriented x 3, equal unlabored respirations, skin warm/dry/pink. came back from CT scan. 06:29 Reassessment: Patient appears in no apparent distress at this time. No changes from rr5 previously documented assessment. awaiting for CT result. 06:54 Reassessment: Patient appears in no apparent distress at this time. on sitting position rr5 not in distress. no complaints made. Vital Signs: 05:10 BP 126 / 94; Pulse 60; Resp 20; Temp 98.7; Pulse Ox 100% ; Weight 125.65 kg; Height 6 rr5 ft. 1 in. (185.42 cm); Pain 10/10; 06:00 BP 124 / 78; Pulse 91; Resp 17; Temp 98.6; Pulse Ox 99% ; rr5 06:50 BP 138 / 92; Pulse 84; Resp 16; Temp 98.6; Pulse Ox 96% on R/A; Pain 8/10; rr5 07:12 BP 135 / 90; Pulse 85; Resp 18; Pulse Ox 100% on R/A; hj 05:10 Body Mass Index 36.55 (125.65 kg, 185.42 cm) rr5 ED Course: 04:56 Patient arrived in ED. ds1 04:59 Domingo Wilkes MD is Attending Physician. pkl 05:09 Reid Elliott, BLANCA is Primary Nurse. rr5 05:12 Triage completed. rr5 05:15 Patient has correct armband on for positive identification. Bed in low position. Call rr5 light in reach. Side rails up X2. 05:15 Arm band placed on. hj 05:30 Inserted saline lock: 20 gauge in right antecubital area, using aseptic technique. rr5 06:04 CT completed. Pt tolerated procedure poorly. Patient moved to CT via stretcher. Patient moved back from CT. 06:12 CT Lumbar Spine Wo Con In Process Unspecified. EDMS 07:03 Connie Walsh MD is Referral Physician. pkl 07:11 No provider procedures requiring assistance completed. IV discontinued, intact, hj bleeding controlled, No redness/swelling at site. Pressure dressing applied. Administered Medications: 05:30 Drug: Zofran 4 mg Route: IVP; Site: right antecubital; rr5 06:55 Follow up: Response: No adverse reaction rr5 05:33 Drug: Demerol 50 mg Route: IVP; Site: right antecubital; rr5 06:35 Follow up: Response: No adverse reaction; Pain is decreased rr5 Outcome: 07:05 Discharge ordered by MD. pkl 07:11 Discharged to home via wheelchair. hj 07:11 Condition: stable 07:11 Discharge instructions given to patient, Instructed on discharge instructions, follow up and referral plans. medication usage, Demonstrated understanding of instructions, follow-up care, medications, Prescriptions given X 2. 07:13 Patient left the ED. hj Signatures: Dispatcher [employer] EDMS Domingo Wilkes MD MD pkl Hagler, Ervin eh Sanford, Demi ds1 Ollie Bishop, RN RN Reid Muller, RN RN rr5
--- NOTE | 2019-03-30 07:05 | EDPHYS ---
Physician Documentation [facility] Name: Nikos Corona Age: 53 yrs Sex: Male : 1965 Arrival Date: 03/30/2019 Time: 04:56 Bed 16 Private MD: ED Physician Domingo Wilkes HPI: 03/30 05:32 This 53 yrs old Male presents to ER via Wheelchair with complaints of Back pkl Pain. 05:32 The patient presents with pain that is acute. The symptoms are located in the low back. pkl Onset: The symptoms/episode began/occurred 1 month(s) ago, and became worse today. The pain radiates to the right buttock and thigh. Historical: - Allergies: 05:10 Rifampin; rr5 05:10 Sulfa (Sulfonamide Antibiotics); rr5 - Home Meds: 05:10 Ambien 10 mg Oral tab 1 tab once daily [Active]; atorvastatin Oral [Active]; Cipro 500 rr5 mg Oral tab 1 tab every 12 hours [Active]; Cleocin 150 mg Oral cap 1 cap every 8 hours [Active]; clopidogrel 75 mg Oral tab 1 tab once daily [Active]; gabapentin Oral [Active]; Gabapentin 300 mg 3 tablets TID [Active]; Glipizide Oral [Active]; Isosorbide Mononitrate Oral [Active]; Kdur 10 MEQ DAILY [Active]; Lasix 40 mg 1 tab PO DAILY (EVENING) [Active]; Lasiz 40 mg 0.5 tab DAILY (MORNING) [Active]; mag oxide 40mg 1 tab PO BID [Active]; morphine 15 mg Oral tab 1 tab daily [Active]; Shepherd 10-325 mg Oral tab 1 tab every 6 hours [Active]; Omeprazole Oral [Active]; spironolactone 25 mg Oral tab 1 tab once daily [Active]; Spironolactone Oral [Active]; Tresiba SQ 20 units DAILY [Active]; Venlafazine 50 mg 1 tab PO BID [Active]; Victoza 1.2 SQ DAILY [Active]; Xarelto 20mg 1 tab PO DAILY [Active]; Zolpidem Tartrate Oral [Active]; - PMHx: 05:10 CHF; Diabetes - NIDDM; Hyperlipidemia; Hypertension; Myocardial infarction; PTSD; rr5 - PSHx: 05:10 FEMUR SURGERY; TIBIA FIBULA SURGERY; Knee surgery; BACK SURGERY; rr5 - Immunization history:: Adult Immunizations. - Social history:: Smoking status: Patient uses tobacco products, 15 STICKS, Patient/guardian denies using alcohol, street drugs. - Ebola Screening: : Patient negative for fever greater than or equal to 101.5 degrees Fahrenheit, and additional compatible Ebola Virus Disease symptoms Patient denies exposure to infectious person Patient denies travel to an Ebola-affected area in the 21 days before illness onset. ROS: 05:32 Eyes: Negative for injury, pain, redness, and discharge, ENT: Negative for injury, pkl pain, and discharge, Neck: Negative for injury, pain, and swelling, Cardiovascular: Negative for chest pain, palpitations, and edema, Respiratory: Negative for shortness of breath, cough, wheezing, and pleuritic chest pain, Abdomen/GI: Negative for abdominal pain, nausea, vomiting, diarrhea, and constipation. 05:32 Back: Positive for pain at rest, of the lower back. 05:32 : Negative for urinary symptoms. 05:32 MS/extremity: Negative for acute changes. 05:32 Skin: Negative for rash. 05:32 Neuro: Negative for altered mental status. Exam: 05:32 Head/Face: Normocephalic, atraumatic. Eyes: Pupils equal round and reactive to light, pkl extra-ocular motions intact. Lids and lashes normal. Conjunctiva and sclera are non-icteric and not injected. Cornea within normal limits. Periorbital areas with no swelling, redness, or edema. ENT: Nares patent. No nasal discharge, no septal abnormalities noted. Tympanic membranes are normal and external auditory canals are clear. Oropharynx with no redness, swelling, or masses, exudates, or evidence of obstruction, uvula midline. Mucous membranes moist. Neck: Trachea midline, no thyromegaly or masses palpated, and no cervical lymphadenopathy. Supple, full range of motion without nuchal rigidity, or vertebral point tenderness. No Meningismus. Chest/axilla: Normal chest wall appearance and motion. Nontender with no deformity. No lesions are appreciated. Cardiovascular: Regular rate and rhythm with a normal S1 and S2. No gallops, murmurs, or rubs. Normal PMI, no JVD. No pulse deficits. Respiratory: Lungs have equal breath sounds bilaterally, clear to auscultation and percussion. No rales, rhonchi or wheezes noted. No increased work of breathing, no retractions or nasal flaring. Abdomen/GI: Soft, non-tender, with normal bowel sounds. No distension or tympany. No guarding or rebound. No evidence of tenderness throughout. 05:32 Back: pain, that is moderate, of the lower back, Straight leg raises: right lower extremity illicits pain, at 30 degrees. 05:32 : Exam negative for acute changes. 05:32 Musculoskeletal/extremity: Exam is negative for acute changes. 05:32 Skin: Exam negative for rash. 05:32 Neuro: Orientation: is normal, Mentation: is normal, Cranial nerves: grossly normal, Motor: moves all fours. Vital Signs: 05:10 BP 126 / 94; Pulse 60; Resp 20; Temp 98.7; Pulse Ox 100% ; Weight 125.65 kg; Height 6 rr5 ft. 1 in. (185.42 cm); Pain 10/10; 06:00 BP 124 / 78; Pulse 91; Resp 17; Temp 98.6; Pulse Ox 99% ; rr5 06:50 BP 138 / 92; Pulse 84; Resp 16; Temp 98.6; Pulse Ox 96% on R/A; Pain 8/10; rr5 07:12 BP 135 / 90; Pulse 85; Resp 18; Pulse Ox 100% on R/A; hj 05:10 Body Mass Index 36.55 (125.65 kg, 185.42 cm) rr5 MDM: 04:59 Patient medically screened. pkl 05:51 Data reviewed: vital signs, nurses notes, radiologic studies, CT scan. pkl 03/30 05:26 Order name: CT Lumbar Spine Wo Con pkl 03/30 05:24 Order name: Saline Lock; Complete Time: 05:38 pkl Administered Medications: 05:30 Drug: Zofran 4 mg Route: IVP; Site: right antecubital; rr5 06:55 Follow up: Response: No adverse reaction rr5 05:33 Drug: Demerol 50 mg Route: IVP; Site: right antecubital; rr5 06:35 Follow up: Response: No adverse reaction; Pain is decreased rr5 Disposition: 03/30/19 07:05 Discharged to Home. Impression: Acute low back pain. Moderate spondylosis of the lumbar spine. - Condition is Stable. - Prescriptions for Ultram 50 mg Oral Tablet - take 1 tablet by ORAL route every 8 hours As needed; 30 tablet. Cyclobenzaprine 10 mg Oral Tablet - take 1 tablet by ORAL route every 8 hours As needed; 30 tablet. - Medication Reconciliation Form, Thank You Letter, Antibiotic Education, Prescription Opioid Use form. - Follow up: Connie Walsh MD; When: 2 - 3 days; Reason: Re-evaluation by your physician. - Problem is new. - Symptoms are unchanged. Signatures: Dispatcher [employer] EDMS Domingo Wilkes MD MD pkl Ollie Bishop RN RN hj Reid Elliott RN RN rr5 Corrections: (The following items were deleted from the chart) 07:13 07:05 03/30/2019 07:05 Discharged to Home. Impression: Acute low back pain. Moderate hj spondylosis of the lumbar spine. Condition is Stable. Forms are Medication Reconciliation Form, Thank You Letter, Antibiotic Education, Prescription Opioid Use. Follow up: Connie Walsh; When: 2 - 3 days; Reason: Re-evaluation by your physician. Problem is new. Symptoms are unchanged. pkl
[2019-03-30 07:29] VITALS: TEMP 98.6
[2019-03-30 07:33] VITALS: BP 135/90; O2SAT 100
--- NOTE | 2019-03-30 11:38 | RAD REPORT ---
EXAM DESCRIPTION: CT - Spine Lumbar Wo Con - 03/30/2019 7:02 am CLINICAL HISTORY: The patient is 53 years old and is Male; LOWER BACK PAIN TECHNIQUE: Axial computed tomography images of the lumbar spine without intravenous contrast. Sagi ttal and coronal reformatted images were created and reviewed. This CT exam was performed using one or more of the following dose reduction techniques: automated exposure control, adjustment of the mA and/or kV according to patient size, and/or use of iterative reconstruction technique. COMPARISON: No relevant prior studies available. FINDINGS: VERTEBRAE: The vertebral body heights and alignment are maintained. There is no acute frac ture. DISCS/SPINAL CANAL/NEURAL FORAMINA: Multilevel intervertebral disc space narrowing and vacuum di sc phenomenon is present specifically from L2 through L5. Anterior osteophyte formation is noted at s everal levels. Mild disc bulges are present specifically from L3 through S1 causing minimal bilateral neural foraminal narrowing most prominent on the right. There is no significant canal stenosis. SOFT TISSUES: The soft tissues are normal. VASCULATURE: Atherosclerosis of the vasculature is present. IMPRESSION: Mild/moderate spondylosis of the lumbar spine. Electronically signed by: Delicia Charles MD 03/30/2019 6:17 AM CDT Due to temporary technical issues with the PACS/Fluency reporting system, reports are being signed by the in house radiologist as a courtesy to ensure prompt reporting. The interpreting radiologist is f ully responsible for the content of the report.
== END 2019-03-30 07:13 | disposition home or self-care (01) ==
LOC: ER 04:55
DX: M47.896 Other spondylosis, lumbar region (principal); I10 Essential (primary) hypertension; E11.9 Type 2 diabetes mellitus without complications; E78.5 Hyperlipidemia, unspecified; I50.9 Heart failure, unspecified; F43.10 Post-traumatic stress disorder, unspecified; I25.2 Old myocardial infarction; Z72.0 Tobacco use; Z79.01 Long term (current) use of anticoagulants; Z88.2 Allergy status to sulfonamides; Z88.8 Allergy status to other drugs, medicaments and biological substances
CPT/HCPCS: 72131; 96375; 96374; 99284; J2175; J2405

== ENCOUNTER 2019-04-30 02:51 | Inpatient (IN) | payer OTHER ==
--- OUTSIDE RECORDS SUMMARY | 2019-04-30 02:53 | XMS REPORT ---
:1965 Author Organization [facility] Address [address] [place] [address] Dr. Crisostomo [address] [place] [id number] Care Team Providers Name Role Phone Unavailable Unavailable Unavailable Problems This patient has no known problems. Allergies, Adverse Reactions, Alerts This patient has no known allergies or adverse reactions. Medications This patient has no known medications.
--- NOTE | 2019-04-30 03:27 | EDPHYS ---
Physician Documentation [facility] Name: Nikos Corona Age: 53 yrs Sex: Male : 1965 Arrival Date: 04/30/2019 Time: 02:54 Bed 5 Private MD: ED Physician Jw Bowers HPI: 04/30 03:22 This 53 yrs old Male presents to ER via Ambulatory with complaints of Chest tw4 Pain. 03:22 The patient or guardian reports chest pain that is located primarily in the anterior tw4 chest wall, left. Onset: today, 13 hour(s) ago. The pain does not radiate. Associated signs and symptoms: Pertinent positives: shortness of breath. The chest pain is described as a heaviness. Duration: The patient or guardian reports multiple episodes, that wax and wane. Modifying factors: The symptoms are alleviated by nothing. the symptoms are aggravated by nothing. Severity of pain: At its worst the pain was moderate in the emergency department the pain is unchanged. The patient has experienced similar episodes in the past, a few times. Historical: - Allergies: 03:06 Rifampin; fc 03:06 Sulfa (Sulfonamide Antibiotics); fc - Home Meds: 03:06 Ambien 10 mg Oral tab 1 tab once daily [Active]; atorvastatin Oral 1 tab once daily fc [Active]; clopidogrel 75 mg Oral tab 1 tab once daily [Active]; Gabapentin 300 mg 3 tablets TID [Active]; Glipizide Oral [Active]; Isosorbide Mononitrate Oral [Active]; Kdur 10 MEQ DAILY [Active]; Lasix 40 mg 1 tab PO DAILY (EVENING) [Active]; Lasiz 40 mg 0.5 tab DAILY (MORNING) [Active]; mag oxide 40mg 1 tab PO BID [Active]; Omeprazole Oral [Active]; Winger 10-325 mg Oral tab 1 tab every 6 hours [Active]; spironolactone 25 mg Oral tab 1 tab once daily [Active]; Venlafazine 50 mg 1 tab PO BID [Active]; - PMHx: 03:06 CHF; Hyperlipidemia; Hypertension; Myocardial infarction; PTSD; Diabetes - NIDDM; fc neuropathy; 03:13 Osteomyelitis; PVD; CAD; DVT; Anxiety; fc - PSHx: 03:06 FEMUR SURGERY; TIBIA FIBULA SURGERY; Knee surgery; BACK SURGERY; Heart stents; defib; fc - Immunization history:: Last tetanus immunization: unknown. - Social history:: Smoking status: Patient uses tobacco products, denies chronic smoking, but will smoke occasionally, Patient uses alcohol, street drugs. - Ebola Screening: : Patient negative for fever greater than or equal to 101.5 degrees Fahrenheit, and additional compatible Ebola Virus Disease symptoms Patient denies exposure to infectious person Patient denies travel to an Ebola-affected area in the 21 days before illness onset. ROS: 03:22 Constitutional: Negative for fever, chills, and weight loss, Eyes: Negative for injury, tw4 pain, redness, and discharge, Respiratory: Negative for shortness of breath, cough, wheezing, and pleuritic chest pain, Abdomen/GI: Negative for abdominal pain, nausea, vomiting, diarrhea, and constipation, Back: Negative for injury and pain, MS/Extremity: Negative for injury and deformity, Skin: Negative for injury, rash, and discoloration. 03:22 Cardiovascular: Positive for chest pain, Negative for edema, orthopnea, palpitations. Exam: 03:22 Constitutional: This is a well developed, well nourished patient who is awake, alert, tw4 and in no acute distress. Head/Face: Normocephalic, atraumatic. Chest/axilla: Normal chest wall appearance and motion. Nontender with no deformity. No lesions are appreciated. Cardiovascular: Regular rate and rhythm with a normal S1 and S2. No gallops, murmurs, or rubs. Normal PMI, no JVD. No pulse deficits. Respiratory: Lungs have equal breath sounds bilaterally, clear to auscultation and percussion. No rales, rhonchi or wheezes noted. No increased work of breathing, no retractions or nasal flaring. Abdomen/GI: Soft, non-tender, with normal bowel sounds. No distension or tympany. No guarding or rebound. No evidence of tenderness throughout. Back: No spinal tenderness. No costovertebral tenderness. Full range of motion. MS/ Extremity: Pulses equal, no cyanosis. Neurovascular intact. Full, normal range of motion. Neuro: Awake and alert, GCS 15, oriented to person, place, time, and situation. Cranial nerves II-XII grossly intact. Motor strength 5/5 in all extremities. Sensory grossly intact. Cerebellar exam normal. Normal gait. Vital Signs: 02:55 BP 134 / 97; Pulse 106; Resp 18; Temp 98.6(O); Pulse Ox 96% on R/A; Weight 124.74 kg fc (R); Height 6 ft. 1 in. (185.42 cm) (R); Pain 8/10; 03:19 BP 121 / 91; Pulse 97; Resp 18; Pulse Ox 99% on 2 lpm NC; ak1 03:51 BP 105 / 92; Pulse 100; Resp 18; Pulse Ox 99% on 2 lpm NC; ak1 04:37 BP 110 / 75; Pulse 103; Resp 19 S; Pulse Ox 97% on R/A; jd3 05:01 BP 111 / 70; Pulse 103; Resp 16 S; Pulse Ox 96% on R/A; Pain 6/10; jd3 02:55 Body Mass Index 36.28 (124.74 kg, 185.42 cm) fc MDM: 03:00 Patient medically screened. tw4 03:22 Differential diagnosis: acute myocardial infarction, acute pericarditis, pulmonary tw4 embolus, stable angina, thoracic aortic disection. Data reviewed: vital signs, nurses notes. Data interpreted: Pulse oximetry: Interpretation: normal. Test interpretation: by ED physician or midlevel provider: ECG, plain radiologic studies. Counseling: I had a detailed discussion with the patient and/or guardian regarding: the historical points, exam findings, and any diagnostic results supporting the discharge/admit diagnosis, lab results, radiology results. Medication response: Nitro x 3 partially relieved pain. Response to treatment: the patient's symptoms have markedly improved after treatment, and as a result, I will admit patient. Physician consultation: Ya Locke MD regarding admission, patient's condition, and will see patient in ED. 04/30 03:01 Order name: Basic Metabolic Panel; Complete Time: 04:29 04/30 03:01 Order name: CBC with Diff; Complete Time: 03:40 04/30 03:40 Interpretation: Normal except: WBC 14.2. 04/30 03:01 Order name: LFT's 04/30 03:01 Order name: Magnesium 04/30 03:01 Order name: NT PRO-BNP 04/30 03:01 Order name: PT-INR 04/30 03:01 Order name: Troponin (emerg Dept Use Only) tw4 04/30 04:46 Order name: Comprehensive Metabolic Panel EDAZ 04/30 04:46 Order name: Comprehensive Metabolic Panel EDAZ 04/30 04:46 Order name: Troponin I EDMS 04/30 04:46 Order name: Troponin I EDAZ 04/30 04:46 Order name: Troponin I EDAZ 04/30 04:46 Order name: Troponin I EDAZ 04/30 04:57 Order name: Lipid Profile EDAZ 04/30 03:01 Order name: XRAY Chest (1 view) tw4 04/30 03:01 Order name: EKG; Complete Time: 03:02 tw4 04/30 03:01 Order name: Cardiac monitoring; Complete Time: 03:25 tw4 04/30 03:01 Order name: EKG - Nurse/Tech; Complete Time: 03:25 tw4 04/30 03:01 Order name: IV Saline Lock; Complete Time: 03:25 tw4 04/30 03:01 Order name: Labs collected and sent; Complete Time: 03:25 tw4 04/30 04:47 Order name: CONS Pharmacy Consult EDAZ 04/30 04:47 Order name: CONS Physician Consult EDMS 04/30 04:47 Order name: NPO EDMS 04/30 04:56 Order name: Echo with Doppler EDMS 04/30 04:57 Order name: Lipid Profile EDAZ 04/30 03:01 Order name: O2 Per Protocol; Complete Time: 03:25 tw4 04/30 03:01 Order name: O2 Sat Monitoring; Complete Time: 03:25 tw4 EC:22 Rate is 100 beats/min. Rhythm is regular, Sinus tachycardia. QRS [place] is Normal. [place] tw4 interval is normal. QRS interval is normal. QT interval is normal. No Q waves. T waves are Flattened in lead III. No ST changes noted. Clinical impression: NSR w/ Non-specific ST/T Changes and Abnormal EKG without significant change. Interpreted by me. Reviewed by me. Administered Medications: 03:25 Drug: Nitro-Bid Ointment 2 % 1 inches Route: Transdermal; Site: anterior chest wall; ak1 03:25 Drug: Aspirin 81 mg Route: PO; ak1 03:29 Follow up: Response: No adverse reaction ak1 03:29 Drug: Lovenox 100 mg Route: Sub-Q; Site: left upper abdomen; ak1 03:29 Follow up: Response: No adverse reaction ak1 04:36 Drug: morphine 4 mg Route: IVP; Site: right antecubital; jd3 05:03 Follow up: Response: No adverse reaction; Pain is decreased jd3 04:36 Drug: Zofran 4 mg Route: IVP; Site: right antecubital; jd3 05:03 Follow up: Response: No adverse reaction jd3 Disposition: 04/30/19 03:26 Hospitalization ordered by Ya Locke for Inpatient Admission. Preliminary diagnosis is Non-ST elevation (NSTEMI) myocardial infarction. - Bed requested for Intensive Care Unit. - Status is Inpatient Admission. ak1 - Condition is Fair. - Problem is new. - Symptoms have improved. UTI on Admission? No Signatures: Dispatcher [employer] EDMS Janis Dempsey RN RN Luna Pierce RN RN Mag Howe RN Rigo Tang RN RN jd3 Wadley, Terrence, MD MD tw4 Corrections: (The following items were deleted from the chart) 03:13 03:06 Home Meds: morphine 15 mg Oral tab 1 tab daily; [facility] 03:43 03:26 Hospitalization Ordered by Ya Locke MD for Inpatient Admission. Preliminary diagnosis is Unstable angina. Bed requested for Telemetry/MedSurg (Inpatient). Status is Inpatient Admission. Condition is Fair. Problem is new. Symptoms have improved. UTI on Admission? No. tw4 03:47 03:43 04/30/2019 03:26 Hospitalization Ordered by Ya Locke MD for Inpatient Admission. Preliminary diagnosis is Unstable angina. Bed requested for Telemetry/MedSurg (Inpatient). Status is Inpatient Admission. Condition is Fair. Problem is new. Symptoms have improved. UTI on Admission? No. mw 03:52 03:47 04/30/2019 03:26 Hospitalization Ordered by Ya Locke MD for Inpatient Admission. Preliminary diagnosis is Unstable angina. Bed requested for Intensive Care Unit. Status is Inpatient Admission. Condition is Fair. Problem is new. Symptoms have improved. UTI on Admission? No. mw 03:58 03:52 04/30/2019 03:26 Hospitalization Ordered by Ya Locke MD for Inpatient tw4 Admission. Preliminary diagnosis is Unstable angina. Bed requested for Intensive Care Unit. Status is Inpatient Admission. Condition is Fair. Problem is new. Symptoms have improved. UTI on Admission? No. mw 05:10 03:58 04/30/2019 03:26 Hospitalization Ordered by Ya Locke MD for Inpatient ak1 Admission. Preliminary diagnosis is Non-ST elevation (NSTEMI) myocardial infarction. Bed requested for Intensive Care Unit. Status is Inpatient Admission. Condition is Fair. Problem is new. Symptoms have improved. UTI on Admission? No. tw4
--- NOTE | 2019-04-30 03:27 | ER ---
Nurse's Notes [facility] Name: Nikos Corona Age: 53 yrs Sex: Male : 1965 Arrival Date: 04/30/2019 Time: 02:54 Bed 5 Private MD: Diagnosis: Non-ST elevation (NSTEMI) myocardial infarction Presentation: 04/30 02:55 Presenting complaint: Patient states: that he has been having chest pain, shortness of fc breath, back pain and nausea but denies any vomiting. Transition of care: patient was not received from another setting of care. Onset of symptoms was April 29, 2019 at 14:00. Risk Assessment: Do you want to hurt yourself or someone else? Patient reports no desire to harm self or others. Initial Sepsis Screen: Does the patient meet any 2 criteria? HR > 90 bpm. Yes Does the patient have a suspected source of infection? No. Patient's initial sepsis screen is negative. Care prior to arrival: Medication(s) given: Nitro - last at 1700 yesterday. 02:55 Method Of Arrival: Ambulatory 02:55 Acuity: YESI 3 fc Historical: - Allergies: 03:06 Rifampin; fc 03:06 Sulfa (Sulfonamide Antibiotics); fc - Home Meds: 03:06 Ambien 10 mg Oral tab 1 tab once daily [Active]; atorvastatin Oral 1 tab once daily [Active]; clopidogrel 75 mg Oral tab 1 tab once daily [Active]; Gabapentin 300 mg 3 tablets TID [Active]; Glipizide Oral [Active]; Isosorbide Mononitrate Oral [Active]; Kdur 10 MEQ DAILY [Active]; Lasix 40 mg 1 tab PO DAILY (EVENING) [Active]; Lasiz 40 mg 0.5 tab DAILY (MORNING) [Active]; mag oxide 40mg 1 tab PO BID [Active]; Omeprazole Oral [Active]; [place] 10-325 mg Oral tab 1 tab every 6 hours [Active]; spironolactone 25 mg Oral tab 1 tab once daily [Active]; Venlafazine 50 mg 1 tab PO BID [Active]; - PMHx: 03:06 CHF; Hyperlipidemia; Hypertension; Myocardial infarction; PTSD; Diabetes - NIDDM; fc neuropathy; 03:13 Osteomyelitis; PVD; CAD; DVT; Anxiety; fc - PSHx: 03:06 FEMUR SURGERY; TIBIA FIBULA SURGERY; Knee surgery; BACK SURGERY; Heart stents; defib; fc - Immunization history:: Last tetanus immunization: unknown. - Social history:: Smoking status: Patient uses tobacco products, denies chronic smoking, but will smoke occasionally, Patient uses alcohol, street drugs. - Ebola Screening: : Patient negative for fever greater than or equal to 101.5 degrees Fahrenheit, and additional compatible Ebola Virus Disease symptoms Patient denies exposure to infectious person Patient denies travel to an Ebola-affected area in the 21 days before illness onset. Screenin:55 Abuse screen: Denies threats or abuse. Nutritional screening: No deficits noted. Tuberculosis screening: No symptoms or risk factors identified. 03:16 Fall Risk None identified. ak1 Assessment: 03:16 Reassessment: Patient and/or family updated on plan of care and expected duration. Pain ak1 level reassessed. General: Appears uncomfortable, Behavior is cooperative, anxious, restless. Pain: Complains of pain in chest Pain does not radiate. Pain began 1400 yesterday afternoon. Neuro: No deficits noted. Cardiovascular: Reports chest pain, shortness of breath, Rhythm is sinus tachycardia. Respiratory: Reports shortness of breath at rest since 1400 yesterday afternoon. GI: No signs and/or symptoms were reported involving the gastrointestinal system. : No signs and/or symptoms were reported regarding the genitourinary system. EENT: No signs and/or symptoms were reported regarding the EENT system. Derm: No signs and/or symptoms reported regarding the dermatologic system. Musculoskeletal: Reports chest wall pain after helping a friend move at 1400 yesterday. pt stated he took a nitro SL at 1700 and "fell asleep, I think" pt c/o chest pain that does not radiate. 03:29 Reassessment: pt states he "just wants to sleep" pt informed of admission and process ak1 of waiting for bed assignment. will continue to monitor. 03:52 Reassessment: cardiology recreational facilities motel manager consulted. pt to be admitted to ICU. ak1 04:29 Reassessment: No changes from previously documented assessment. Patient and/or family jd3 updated on plan of care and expected duration. Pain level reassessed. pt reporting continuing of chest pain. provider notified. new orders received. 04:59 Reassessment: Patient and/or family updated on plan of care and expected duration. Pain jd3 level reassessed. Patient is alert, oriented x 3, equal unlabored respirations, skin warm/dry/pink. pt reported minor relief from pain medication. even and unlabored respirations. pt less diaphoretic. will do bedside report. Patient states feeling better. Vital Signs: 02:55 BP 134 / 97; Pulse 106; Resp 18; Temp 98.6(O); Pulse Ox 96% on R/A; Weight 124.74 kg fc (R); Height 6 ft. 1 in. (185.42 cm) (R); Pain 8/10; 03:19 BP 121 / 91; Pulse 97; Resp 18; Pulse Ox 99% on 2 lpm NC; ak1 03:51 BP 105 / 92; Pulse 100; Resp 18; Pulse Ox 99% on 2 lpm NC; ak1 04:37 BP 110 / 75; Pulse 103; Resp 19 S; Pulse Ox 97% on R/A; jd3 05:01 BP 111 / 70; Pulse 103; Resp 16 S; Pulse Ox 96% on R/A; Pain 6/10; jd3 02:55 Body Mass Index 36.28 (124.74 kg, 185.42 cm) ED Course: 02:54 Patient arrived in ED. ag3 02:55 Arm band placed on Patient placed in an exam room, on a stretcher. fc 02:55 Patient has correct armband on for positive identification. Placed in gown. Bed in low fc position. Call light in reach. Side rails up X 1. monitor worker on. Pulse ox on. NIBP on. 02:55 No provider procedures requiring assistance completed. Oxygen administration via nasal fc cannula \\T\\ 2L/min. 03:00 Jw Bowers MD is Attending Physician. tw4 03:08 Triage completed. fc 03:16 Mag Howe, BLANCA is Primary Nurse. ak1 03:16 Door closed. Lights dimmed. Warm blanket given. ak1 03:16 Initial lab(s) drawn, by ED staff, sent to lab. EKG done, by ED staff, reviewed by laquita Bowers MD X-ray(s) taken. Inserted saline lock: 20 gauge in right antecubital area, using aseptic technique. ,using aseptic technique. placed by Lino Blood collected. 03:20 X-ray completed. Portable x-ray completed in exam room. Patient tolerated procedure kw well. 03:20 Patient admitted, IV remains in place. ak1 03:22 XRAY Chest (1 view) In Process Unspecified. EDMS 03:25 aY Locke MD is Hospitalizing Provider. tw4 03:47 Notified ED physician of a critical lab result(s). magnesium 1.0. ed1 Administered Medications: 03:25 Drug: Nitro-Bid Ointment 2 % 1 inches Route: Transdermal; Site: anterior chest wall; ak1 03:25 Drug: Aspirin 81 mg Route: PO; ak1 03:29 Follow up: Response: No adverse reaction ak1 03:29 Drug: Lovenox 100 mg Route: Sub-Q; Site: left upper abdomen; ak1 03:29 Follow up: Response: No adverse reaction ak1 04:36 Drug: morphine 4 mg Route: IVP; Site: right antecubital; jd3 05:03 Follow up: Response: No adverse reaction; Pain is decreased jd3 04:36 Drug: Zofran 4 mg Route: IVP; Site: right antecubital; jd3 05:03 Follow up: Response: No adverse reaction jd3 Outcome: 03:26 Decision to Hospitalize by Provider. tw4 05:02 Admitted to ICU accompanied by nurse, via stretcher, room 2, on monitor, with chart, jd3 Report called to bedside report will be done in ICU 05:02 Condition: stable 05:02 Instructed on the need for admit, Demonstrated understanding of instructions. 05:10 Patient left the ED. ak1 Signatures: Dispatcher [employer] EDMS Luna Pierce, RN RN Akosua Velazquez RN RN ed1 Clotilde Rouse Amber RN RN ak1 Rigo Muller, BLANCA RN [email or web address] Jw Bowers MD MD tw4 Laura Vizcarra ag3 Corrections: (The following items were deleted from the chart) 03:13 03:06 Home Meds: morphine 15 mg Oral tab 1 tab daily; [facility] 04:39 04:37 BP 133 / 102; Pulse 103bpm; Resp 19bpm; Spontaneous; Pulse Ox 97% RA; jd3 jd3 05:01 04:59 Reassessment: Patient and/or family updated on plan of care and expected jd3 duration. Pain level reassessed. Patient is alert, oriented x 3, equal unlabored respirations, skin warm/dry/pink. pt reported minor relief from pain medication. even and unlabored respirations. pt less diaphoretic. Patient states feeling better. jd3
[2019-04-30 03:30] LABS: Absolute Lymphocytes (CBC) 3.2 K/uL (0.7-4.9); Absolute Monocytes 0.7 K/uL (0.1-1.3); Absolute Neutrophil 9.7 K/uL (1.8-8.0); Basophils % 0.6 % (0-1.3); Eosinophils % 3.2 % (0-4.4); Hematocrit 41.3 % (39.6-49.0); Lymphocytes % 22.9 % (15.3-44.8); MPV 8.7 fL (7.6-11.3); RBC Red Blood Cell Count 4.45 M/uL (4.33-5.43)
[2019-04-30 03:31] LABS: Protime INR 1.09
[2019-04-30] MEDS ORDERED: NITROGLYCERIN 1 GM PKT TD ONE (03:38)
[2019-04-30] MEDS ORDERED: ASPIRIN 81 MG CHEWABLE TABLET ONE (03:38)
[2019-04-30] MEDS ORDERED: ENOXAPARIN 100 MG/ML SYR SQ ONE (03:43)
[2019-04-30 03:48] LABS: Albumin 3.6 g/dL (3.4-5.0); Bilirubin Direct 0.2 mg/dL (0-0.2); Bilirubin Total 0.7 mg/dL (0.2-1.0); Potassium 3.6 mmol/L (3.5-5.1); Protein, Total 7.4 g/dL (6.4-8.2); Troponin (Emerg Dept Use Only) 9.64 ng/mL (0.0-0.045)
[2019-04-30] MEDS ORDERED: MORPHINE 4 MG/ML SYR IV PRN (04:41)
[2019-04-30] MEDS ORDERED: ONDANSETRON 4 MG/2 ML VIAL IV PRN (04:41)
[2019-04-30] MEDS ORDERED: ACETAMINOPHEN 500 MG TAB PO PRN (04:41)
[2019-04-30] MEDS ORDERED: ONDANSETRON 4 MG/2 ML VIAL ONE (04:46)
[2019-04-30] MEDS ORDERED: MORPHINE 4 MG/ML SYR ONE (04:46)
[2019-04-30] MEDS ORDERED: HEPARIN/D5W 25,000 UNIT/500 ML BAG IV SCH (05:00)
[2019-04-30 05:41] VITALS: BMI 36.3
[2019-04-30] MEDS: NA CHLORIDE 0.9% 1,000 ML IV SCH ×2 (05:53→17:01)
[2019-04-30] MEDS: Magnesium Sulfate 2gm IVPB 2 G/50 ML BAG IV SCH ×2 (05:53→09:00)
[2019-04-30] MEDS ORDERED: HYDROMORPHONE HCL 0.5 MG/0.5 ML INJ IV ONE (07:15)
--- NOTE | 2019-04-30 07:16 | EKG ---
Test Date: 2019-04-30 Test Time: 03:06:47 Baseball Player: STEVE MEASUREMENT RESULTS: Intervals: Rate: 102 CT: 204 QRSD: 122 QT: 374 QTc: 487 [place]: P: 56 CT: 204 QRS: -56 T: 71 INTERPRETIVE STATEMENTS: Sinus tachycardia Possible Left atrial enlargement Left axis deviation Inferior infarct, age undetermined Abnormal ECG Compared to ECG 01/12/2018 20:20:03 Left-axis deviation now present Sinus rhythm no longer present First degree AV block no longer present Left anterior fascicular block no longer present Myocardial infarct finding still present Electronically Signed On 04-30-19 07:15:23 CDT by Torito Kraus
[2019-04-30] MEDS ORDERED: LIDOCAINE 1% MPF 30 ML VIAL ONE (08:11)
[2019-04-30] MEDS ORDERED: HEPA 1000U/500MLS 1,000 UNIT/500 ML BAG IV ONE (08:11)
--- NOTE | 2019-04-30 08:31 | RAD REPORT ---
EXAM DESCRIPTION: RAD - Chest Single View - 04/30/2019 3:20 am CLINICAL HISTORY: CHEST PAIN Chest pain. COMPARISON: Chest Single View dated 06/29/2018; Chest Single View dated 01/12/2018; Chest Single View d ated 05/11/2017; CHEST PA AND LAT 2 VIEW dated 01/05/2013 FINDINGS: Portable technique limits examination quality. Moderate bilateral pulmonary opacities are noted most compatible with pulmonary edema. The heart is m ildly enlarged in size with dual lead pacer device present. No displaced fractures. IMPRESSION: Moderate CHF versus volume overload.
[2019-04-30] MEDS ORDERED: METOPROLOL TAR 50 MG TAB PO SCH (09:00)
[2019-04-30] MEDS ORDERED: FUROSEMIDE 40 MG TABLET PO SCH (09:00)
[2019-04-30] MEDS: FUROSEMIDE 40 MG TABLET PO SCH ×2 (09:00→16:56)
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
[2019-04-30] MEDS: METOPROLOL TAR 25 MG TAB PO SCH ×2 (09:29→20:53)
[2019-04-30] MEDS: ASPIRIN 325 MG TAB PO SCH (09:32)
[2019-04-30] MEDS: CLOPIDOGREL 75 MG TABLET PO SCH (09:32)
[2019-04-30] MEDS ORDERED: FENTANYL CITR 100 MCG/2 ML ONE (10:48)
[2019-04-30] MEDS ORDERED: NA CHLORIDE 0.9% 50 ML ONE (10:48)
[2019-04-30] MEDS ORDERED: MIDAZOLAM HCL 2 MG/2 ML INJ ONE (10:48)
[2019-04-30] MEDS ORDERED: ATROPINE SULF 1 MG/10 ML SYR IV ONE (10:48)
[2019-04-30] MEDS ORDERED: NITROGLYCERIN/D5W 25 MG/250 ML BTL IV ONE (11:02)
[2019-04-30] MEDS ORDERED: PRASUGREL (EFFIENT) 10 MG TAB ONE (11:32)
--- NOTE | 2019-04-30 12:20 | CON ---
Date of Consultation: 04/30/2019 Reason For Consultation: Non-ST elevation myocardial infarction. History Of Present Illness: Mr. Corona is a 53-year-old white male, has an extensive past medical his tory including chronic systolic congestive heart failure. He is status post defibrillator. He also has a history of CAD, status post PCI. The last of which was 2 years ago. He has a history of perip heral vascular disease with negative arterial Doppler, but he has had amputation of his left third to e. He has a history of anxiety, deep venous thrombosis, posttraumatic stress disorder, diabetes, hyp ertension, and dyslipidemia. Came in with about a week of substernal chest pain, PND, orthopnea. No pedal edema. Some palpitations. No syncope. Some nausea, diaphoresis and shortness of breath. De nied any fever or chills or trauma. Has had some cough. Allergies: INCLUDE SULFA AND RIFAMPIN. Review of Systems: Negative. Social History: Negative. Family History: Positive for heart disease. Medications: At home include Prilosec, Imdur, Effexor, Neurontin, Lipitor, Coreg, insulin, Plavix, I mdur, Aldactone magnesium, Lasix, and Victoza. Physical Examination: Vital Signs: Vital signs were stable. He was afebrile. He was in no acute distress. General: He was in sinus rhythm, slightly anxious, slightly short of breath. HEENT: Negative. Neck: Supple without any bruit, lymphadenopathy, or JVD or thyromegaly. Chest: Reveals expiratory wheezing and rales bilaterally. Cardiac: Revealed a regular rhythm and rate with an S4 gallops. No murmurs or rubs. Abdomen: Benign. Extremities: Revealed no clubbing, cyanosis, or edema. He is status post amputation of the left thi rd toe metatarsal. Skin: Dry and intact. Neurologic: Nonfocal. Extremities: Pulses were present in the femoral chai galen bilaterally. Diagnostic Data: He had a white count of 14,000. Magnesium was 1.0. He received 4 g of Mag since h is BNP was 5196. Troponin was 9.64. Impression And Plan: 1.Non ST elevation myocardial infarction. 2.Elevated white count. Possibly bronchitis. 3.Hypomagnesemia. 4.Chronic systolic congestive heart failure with acute exacerbation. 5.Status post AICD. 6.History of peripheral vascular disease. 7.Anxiety and posttraumatic disorder. 8.History of deep venous thrombosis that has resolved. 9.History of coronary artery disease status post multiple stents. The last of which was 2 years ago . 10.History of diabetes, well controlled. 11.History of hypertension, well controlled. 12.Dyslipidemia, well controlled. 13.History of gastroesophageal reflux disease. 14.History of neuropathy. Case was discussed with Dr. Locke and the patient. Considering his history of coronary disease and co ngestive heart failure and abnormal troponin, I will proceed with a heart catheterization today to de fine his coronary anatomy. The patient understands the risk and the benefits of the procedure and he agrees to proceed. LIZZIE/GERHARD Voice ID: [id number] Report ID: [id number]
[2019-04-30 13:05] LABS: Urine Appearance CLEAR; Urine Bilirubin NEGATIVE (NEG); Urine Blood NEGATIVE (NEG); Urine Color YELLOW; Urine Glucose 3+ (NEG); Urine Protein 2+ (NEG); Urine Specific Gravity >=1.030 (1.005-1.030)
[2019-04-30 13:11] LABS: Barbiturates NEGATIVE (NEGATIVE); Benzodiazepines POSITIVE (NEGATIVE); Cocaine NEGATIVE (NEGATIVE); METHAMPHETAM NEGATIVE (NEGATIVE); Methadone NEGATIVE (NEGATIVE); Opiates POSITIVE (NEGATIVE); Phencyclidine NEGATIVE (NEGATIVE); THC Cannibis NEGATIVE (NEGATIVE)
[2019-04-30 13:48] LABS: Urine Amorphous Sediment 2+ /HPF (NONE SEEN); Urine Bacteria <20 /HPF (NONE SEEN); Urine RBC <5 /HPF (NONE SEEN)
[2019-04-30 13:49] LABS: Urine Culture Reflex Order NOT NEEDED
[2019-04-30] MEDS: FENTANYL CITR 100 MCG/2 ML IV PRN ×2 (14:10→20:53)
[2019-04-30 14:45] LABS: BUN Blood Urea Nitrogen 15 mg/dL (7-18); Bicarbonate 30 mmol/L (21-32); Glucose Level 270 mg/dL (74-106); Magnesium 1.9 mg/dL (1.8-2.4); Potassium 4.2 mmol/L (3.5-5.1); Sodium Level 134 mmol/L (136-145)
[2019-04-30] MEDS ORDERED: D50W 25 GM/50 ML SYRINGE IV PRN (16:46)
[2019-04-30] MEDS ORDERED: GLUCAGON 1 MG/VIAL IM PRN (16:46)
[2019-04-30] MEDS: INSULIN -REGULAR HUMAN 50 UNIT/0.5 ML ML SQ SCH ×2 (16:56→20:52)
[2019-04-30] MEDS ORDERED: ATORVASTATIN 20 MG TAB PO SCH (21:00)
--- NOTE | 2019-04-30 21:37 | OP ---
Date of Procedure: 04/30/2019 Surgeon: Torito Kraus MD Card Scraper: Alicia Melo and Juju Solorzano. Procedures: Left heart catheterization, selective coronary arteriogram, percutaneous transluminal co ronary angioplasty and stent of the of the mid left anterior descending. Indication: Non-ST elevation myocardial infarction. Procedure In Detail: Mr. Corona is a 53-year-old male with history of congestive heart failure, eject ion fraction about 40%. Defibrillator placement multiple LAD stents in the past. Came in with non-S KARLY. Brought to the lab head and draped and prepped in the routine sterile fashion, given 4 mg of V ersed and 50 fentanyl for IV sedation. Angiography was done through the right common femoral artery 6-Green[place]ic sheath. Angiography, there was normal. Angio-Seal was used to close the case. A Smita c atheter was used to do the diagnostic catheterization. He was found to have 100% very dominant RCA w ith collaterals to the PDA coming from the LAD. He had a small circumflex that was nondominant and f ree of disease. The LAD had multiple stents in it. There was a 90% stenosis in the mid LAD within t he old stent. An XBLAD 3.5 guide catheter with side holes was used, a Erwinna wire 0.014. Synergy st ent 3.5 x 16 was placed after predilatation with an Emerge balloon at 3.0 x 15. There were no compli cations. Blood Loss: 5 cc. Postoperative Diagnosis: Coronary artery disease status post successful angioplasty and stent in the left anterior descending. Plan: To continue medical therapy. The patient received Angiomax and Effient during the procedure. Anesthesia: Total conscious sedation was 45 minutes. LIZZIE/GERHARD Voice ID: [id number] Report ID: [id number]
[2019-05-01] MEDS: FENTANYL CITR 100 MCG/2 ML IV PRN (01:42)
[2019-05-01] MEDS ORDERED: ACETAMINOPHEN 325 MG TABLET PO PRN (04:18)
[2019-05-01] MEDS ORDERED: NITROGLYCERIN 0.4 MG/TAB SL ONE (04:20)
[2019-05-01] MEDS ORDERED: NITROGLYCERIN 0.4 MG/TAB SL PRN (04:24)
[2019-05-01 04:47] VITALS: O2SAT 96
[2019-05-01 05:45] LABS: Absolute Lymphocytes (CBC) 1.8 K/uL (0.7-4.9); Absolute Monocytes 0.8 K/uL (0.1-1.3); Absolute Neutrophil 9.1 K/uL (1.8-8.0); Basophils % 0.5 % (0-1.3); Eosinophils % 3.8 % (0-4.4); Hematocrit 42.4 % (39.6-49.0); Lymphocytes % 14.9 % (15.3-44.8); MPV 8.5 fL (7.6-11.3); Monocytes % 6.5 % (3.3-12.3); RBC Red Blood Cell Count 4.53 M/uL (4.33-5.43)
[2019-05-01 06:04] LABS: Albumin 3.5 g/dL (3.4-5.0); Bilirubin Total 0.6 mg/dL (0.2-1.0); Protein, Total 7.5 g/dL (6.4-8.2)
[2019-05-01 06:06] LABS: Troponin I 11.2 ng/mL (0.0-0.045)
[2019-05-01] MEDS: INSULIN -REGULAR HUMAN 50 UNIT/0.5 ML ML SQ SCH (08:35)
[2019-05-01] MEDS: METOPROLOL TAR 25 MG TAB PO SCH (08:36)
[2019-05-01] MEDS: ASPIRIN 325 MG TAB PO SCH (08:36)
[2019-05-01] MEDS: FUROSEMIDE 40 MG TABLET PO SCH (08:36)
[2019-05-01] MEDS: CLOPIDOGREL 75 MG TABLET PO SCH (08:38)
[2019-05-01 08:41] VITALS: BP 119/70
--- NOTE | 2019-05-01 09:07 | EKG ---
Test Date: 2019-04-30 Test Time: 03:08:17 Catalogue Maker: STEVE MEASUREMENT RESULTS: Intervals: Rate: 101 IN: 208 QRSD: 120 QT: 374 QTc: 484 [place]: P: 54 IN: 208 QRS: -60 T: 66 INTERPRETIVE STATEMENTS: Sinus tachycardia Possible Left atrial enlargement Left axis deviation Low voltage QRS Inferior infarct, age undetermined Cannot rule out Anterior infarct, age undetermined Abnormal ECG Compared to ECG 04/30/2019 03:06:47 Low QRS voltage now present Myocardial infarct finding still present Electronically Signed On 05-01-19 09:01:34 CDT by Torito Kraus
[2019-05-01 09:16] VITALS: TEMP 98.8
--- NOTE | 2019-05-01 11:12 | P.DS ---
Admission Date: 04/30/19 Discharge Date: 05/01/19 Disposition: ROUTINE DISCHARGE Discharge Condition: GOOD Reason for Admission: Acute coronary syndrome Consultations: Cardiology - Problems (1) Acute coronary syndrome Status: Acute (2) CHF (congestive heart failure) Onset Date: 06/08/18 Status: Acute Qualifiers: Heart failure type: systolic Heart failure chronicity: acute Qualified Code(s): I50.21 - Acute systolic (congestive) heart failure (3) CAD (coronary artery disease) Onset Date: 06/08/18 Status: Chronic Qualifiers: (4) DVT (deep venous thrombosis) Onset Date: 06/30/18 Status: Chronic (5) Diabetes mellitus Onset Date: 06/08/18 Status: Chronic (6) HTN (hypertension) Onset Date: 06/08/18 Status: Chronic Qualifiers: Hypertension type: essential hypertension (7) History of implantable cardiac defibrillator (ICD) Onset Date: 06/08/18 Status: Chronic (8) Hyperlipidemia Onset Date: 06/08/18 Status: Chronic Qualifiers: (9) Obesity Onset Date: 06/08/18 Status: Chronic Qualifiers: (10) PVD (peripheral vascular disease) Onset Date: 06/08/18 Status: Chronic (11) Tobacco abuse Onset Date: 06/08/18 Status: Chronic Brief History of Present Illness: Patient is a 53-year-old gentleman who came into the hospital with complaints of dyspnea and chest discomfort. Patient has a history of cardiomyopathy with an ejection fraction of 35-40%. Patient also has a defibrillator/pacemaker placed. Patient has not been compliant with following up with his talent solutions manager or his primary care provider. He states he is in between physicians at this time. He was having recent back surgery which was about a couple weeks ago. I believe he had an injection which he states helped his pain a little bit. However, he still having some discomfort. But his main symptom was the shortness of breath and chest discomfort. In the ER patient had labs which revealed an elevated troponin. Cardiology was notified and decision was made to admit the patient to the hospital for possible cardiac catheterization. Patient was given anti-platelet agents and Lovenox in the emergency room. Will get a stat echocardiogram. Will await Cardiology input this morning. Patient will be admitted to the hospital for an inpatient hospitalization because of an acute myocardial infarction. Hospital Course: Overall during the hospital stay patient remained stable Patient was admitted to the hospital for acute coronary syndrome, possible acute RI with elevated troponins and ST elevation on EKG. Cardiology was consulted. Patient was taken to heart catheterization. Patient was found to have significant stenosis of the LAD which was stented. Patient did well overall postprocedure. Patient then was transferred to the ICU for close monitoring for 20 years. Did well overall and was thus discharged home today under stable condition by cardiology. Vital Signs/Physical Exam: Temp Pulse Resp BP Pulse Ox 98.8 F 89 19 119/70 96 05/01/19 08:00 05/01/19 08:36 05/01/19 08:00 05/01/19 08:36 05/01/19 08:00 General: Alert, In no apparent distress HEENT: Atraumatic, PERRLA, EOMI Neck: Supple, JVD not distended Respiratory: Clear to auscultation bilaterally, Normal air movement Cardiovascular: Regular rate/rhythm, Normal S1 S2 Gastrointestinal: Normal bowel sounds, No tenderness Musculoskeletal: No tenderness Integumentary: No rashes Neurological: Normal speech, Normal tone, Normal affect Lymphatics: No axilla or inguinal lymphadenopathy Laboratory Data at Discharge: WBC 12.3 K/uL (4.3-10.9) H 05/01/19 05:19 Hgb 14.5 g/dL (13.6-17.9) 05/01/19 05:19 Hct 42.4 % (39.6-49.0) 05/01/19 05:19 Plt Count 264 K/uL (152-406) 05/01/19 05:19 PT 12.8 SECONDS (9.5-12.5) H 04/30/19 03:11 INR 1.09 04/30/19 03:11 Sodium 137 mmol/L (136-145) 05/01/19 05:19 Potassium 4.0 mmol/L (3.5-5.1) 05/01/19 05:19 BUN 17 mg/dL (7-18) 05/01/19 05:19 Creatinine 0.91 mg/dL (0.55-1.3) 05/01/19 05:19 Glucose 299 mg/dL (74-106) H 05/01/19 05:19 Magnesium 1.9 mg/dL (1.8-2.4) D 04/30/19 13:46 Total Bilirubin 0.6 mg/dL (0.2-1.0) 05/01/19 05:19 AST 34 U/L (15-37) 05/01/19 05:19 ALT 21 U/L (12-78) 05/01/19 05:19 Alkaline Phosphatase 80 U/L (45-117) 05/01/19 05:19 Troponin I 11.20 ng/mL (0.0-0.045) H* 05/01/19 05:19 Triglycerides 199 mg/dL (<150) H 05/01/19 05:19 Cholesterol 146 mg/dL (<200) 05/01/19 05:19 HDL Cholesterol 41 mg/dL (40-60) 05/01/19 05:19 Cholesterol/HDL Ratio 3.56 05/01/19 05:19 Home Medications: Atorvastatin Calcium [Lipitor] 40 mg PO BEDTIME 01/13/18 Carvedilol 18.75 mg PO BIDWM 01/13/18 Gabapentin [Neurontin*] 900 mg PO TID 01/13/18 Venlafaxine HCl [Effexor] 50 mg PO BID 01/13/18 Furosemide [Lasix] 60 mg PO DAILY 06/05/18 Isosorbide Mononitrate [Isosorbide Mononitrate ER] 60 mg PO DAILY 06/05/18 Furosemide [Lasix] 20 mg PO DAILY AT SUPPER 04/30/19 Insulin 70/30 NPH/Reg Human [Novolin 70/30*] 10 unit SQ BIDWM 04/30/19 Diet: Regular Activity: Ad tonya Followup: Torito Kraus MD [ACTIVE - CAN ADMIT] - 1-2 Weeks Janet Cristobal MD [OUTSIDE PHYSICIAN] - 1-2 Weeks (Call to schedule an appointment )
--- NOTE | 2019-05-01 15:59 | PN ---
Date of Progress Note: 05/01/2019 Mr. Corona is a patient, who has congestive heart failure; defibrillator; coronary artery disease, sta tus post multiple LAD stents. He came in with a subendocardial PA. Yesterday, he was taken to the c ath lab. He was found to have a completely occluded RCA, very dominant, with collaterals from the LA D to the PDA. His circumflex was small, nondominant, but normal. He had a 95% stenosis in the mid L AD within his old stents. This was dilated and stented successfully with 0% residual. Overnight, he did well. He has no issues in his right groin. There is no hematoma. He has good distal pulses. His telemetry is normal. He has no more chest pain or shortness of breath. Echocardiogram showed an ejection fraction about 40%, which is chronic for him. He has a history of defibrillator. He can g o home today on his home medication including his clopidogrel. He will follow up with Dr. Locke in e near future. LIZZIE/GERHARD Voice ID: [id number] Report ID: [id number]
--- NOTE | 2019-05-02 07:56 | EKG ---
Test Date: 2019-05-01 Test Time: 08:53:39 Wellness Educator: BRITTANEY MEASUREMENT RESULTS: Intervals: Rate: 93 ME: 218 QRSD: 122 QT: 382 QTc: 474 [place]: P: 55 ME: 218 QRS: 258 T: 87 INTERPRETIVE STATEMENTS: Sinus rhythm with 1st degree AV block Right superior axis deviation Inferior infarct, age undetermined Abnormal ECG Compared to ECG 04/30/2019 03:08:17 First degree AV block now present Right superior axis now present Sinus tachycardia no longer present Left-axis deviation no longer present Myocardial infarct finding still present Electronically Signed On 05-02-19 07:53:07 CDT by Torito Kraus
--- NOTE | 2019-05-03 10:01 | ECHO ---
HEIGHT: 6 ft 1 in WEIGHT: 275 lb 0 oz DATE OF STUDY: 05/03/[address]: Ya Locke MD 2-DIMENSIONAL: YES M.MODE: YES DOPPLER: YES COLOR FLOW: YES TDS: NO PORTABLE: NO DEFINITY: NO BUBBLE STUDY: NO DIAGNOSIS: ACUTE CORONARY SYNDROME CARDIAC HISTORY: CATHERIZATION: YES SURGERY: NO PROSTHETIC VALVE: NO PACEMAKER: NO MEASUREMENTS (cm) DIASTOLIC (NORMALS) SYSTOLIC (NORMALS) IVSd 1.2 (0.6-1.2) LA Diam 4.9 (1.9-4.0) LVEF 35-40% LVIDd 6.2 (3.5-5.7) LVIDs 5.2 (2.0-3.5) %FS 16% LVPWd 1.3 (0.6-1.2) Ao Diam 4.0 (2.0-3.7) 2 DIMENSIONAL ASSESSMENT: RIGHT ATRIUM: NORMAL LEFT ATRIUM: DILATED RIGHT VENTRICLE: PACEMAKER LEFT VENTRICLE: DILATED TRICUSPID VALVE: NORMAL MITRAL VALVE: NORMAL PULMONIC VALVE: NORMAL AORTIC VALVE: NORMAL PERICARDIAL EFFUSION: NONE AORTIC ROOT: NORMAL LEFT VENTRICULAR WALL MOTION: MODERATE GLOBAL HYPOKINESIS. DOPPLER/COLOR FLOW: MILD TO MODERATED TRICUSPID REGURGITATION, MITRAL REGURGITATION. COMMENTS: MODERATE GLOBAL HYPOKINESIS. EJECTION FRACTION 35-40%. LEFT VENTRICULAR DILATION, LEFT ATRIAL ENLARGMENT. PACEMAKER IN RIGHT VENTRICULAR APEX. TECHNOLOGIST: OSCAR MCDONNELL
== END 2019-05-01 09:40 | disposition home or self-care (01) | DRG 246 ==
LOC: ER 02:51 → 3RD-ICU 04:57 → 4TH 17:25
PROVIDERS: ADMIT Hospitalist; ATTEND Family Medicine
PROC: 027034Z Dilation of Coronary Artery, One Artery with Drug-eluting Intraluminal Device, Percutaneous Approach (ICD-10-PCS; principal; 2019-04-30)
PROC: 4A023N7 Measurement of Cardiac Sampling and Pressure, Left Heart, Percutaneous Approach (ICD-10-PCS; 2019-04-30)
PROC: B205YZZ Plain Radiography of Left Heart using Other Contrast (ICD-10-PCS; 2019-04-30)
PROC: B201YZZ Plain Radiography of Multiple Coronary Arteries using Other Contrast (ICD-10-PCS; 2019-04-30)
DX: I21.4 Non-ST elevation (NSTEMI) myocardial infarction (principal); I50.23 Acute on chronic systolic (congestive) heart failure; I25.10 Atherosclerotic heart disease of native coronary artery without angina pectoris; I24.9 Acute ischemic heart disease, unspecified; I11.0 Hypertensive heart disease with heart failure; F41.9 Anxiety disorder, unspecified; F43.10 Post-traumatic stress disorder, unspecified; E11.9 Type 2 diabetes mellitus without complications; E78.5 Hyperlipidemia, unspecified; E83.42 Hypomagnesemia; F17.210 Nicotine dependence, cigarettes, uncomplicated; E66.9 Obesity, unspecified; Z68.36 Body mass index [BMI] 36.0-36.9, adult; Z88.2 Allergy status to sulfonamides; Z89.422 Acquired absence of other left toe(s); Z95.5 Presence of coronary angioplasty implant and graft; Z95.810 Presence of automatic (implantable) cardiac defibrillator
CPT/HCPCS: 36415; 71045; 80048; 80053; 80061; 80076; 80307; 81001; 82962; 83735; 83880; 84484; 85025; 85610; 93005; 93306; 93454; 96372; 96374; 96375; 99285; C1725; C1760; C1877; C1893; C9600; J0583; J1170; J1650; J2250; J2405; J3010; J3475; J7030

== ENCOUNTER 2019-05-10 00:08 | Inpatient (IN) | payer OTHER ==
--- OUTSIDE RECORDS SUMMARY | 2019-05-10 00:10 | XMS REPORT ---
:1965 Author Organization [facility] Address [address] [place] [address] Dr. Crisostomo [address] [place] [id number] Care Team Providers Name Role Phone Unavailable Unavailable Unavailable Problems This patient has no known problems. Allergies, Adverse Reactions, Alerts This patient has no known allergies or adverse reactions. Medications This patient has no known medications.
--- NOTE | 2019-05-10 00:28 | EDPHYS ---
Physician Documentation [facility] Name: Nikos Corona Age: 53 yrs Sex: Male : 1965 Arrival Date: 05/10/2019 Time: 00:15 Bed 26 Private MD: ED Physician Chris Neumann HPI: 05/10 00:22 This 53 yrs old Male presents to ER via Unassigned with complaints of chest sebastien pain and sob. 00:22 The patient has shortness of breath at rest, with light activity. Onset: The sebastien symptoms/episode began/occurred just prior to arrival. Duration: The symptoms are continuous, and are steadily getting worse. The patient's shortness of breath has no apparent modifying factors. The patient or guardian reports chest pain that is located primarily in the substernal area. Onset: just prior to arrival. The pain does not radiate. Associated signs and symptoms: The patient has no apparent associated signs or symptoms. Severity of symptoms: At their worst the symptoms were mild in the emergency department the symptoms have resolved. The chest pain is described as a heaviness, a pressure. Historical: - Allergies: 00:37 Rifampin; jd3 00:37 Sulfa (Sulfonamide Antibiotics); jd3 - PMHx: 00:37 PTSD; Myocardial infarction; Hyperlipidemia; CAD; Diabetes - NIDDM; DVT; osteomyelitis; jd3 CHF; neuropathy; Anxiety; Hypertension; PVD; - PSHx: 00:37 TIBIA FIBULA SURGERY; Knee surgery; Heart stents; BACK SURGERY; FEMUR SURGERY; defib; jd3 - Immunization history:: Adult Immunizations up to date. - Social history:: Smoking status: unknown. - Family history:: not pertinent. - Ebola Screening: : Patient negative for fever greater than or equal to 101.5 degrees Fahrenheit, and additional compatible Ebola Virus Disease symptoms. ROS: 00:22 Constitutional: Negative for fever, chills, and weight loss, Eyes: Negative for injury, sebastien pain, redness, and discharge, ENT: Negative for injury, pain, and discharge, Neck: Negative for injury, pain, and swelling, Cardiovascular: Negative for chest pain, palpitations, and edema, Abdomen/GI: Negative for abdominal pain, nausea, vomiting, diarrhea, and constipation, Back: Negative for injury and pain, : Negative for injury, bleeding, discharge, and swelling, MS/Extremity: Negative for injury and deformity, Skin: Negative for injury, rash, and discoloration, Neuro: Negative for headache, weakness, numbness, tingling, and seizure. 00:22 Cardiovascular: Positive for chest pain. 00:22 Respiratory: Positive for cough, shortness of breath. Exam: 00:22 Constitutional: This is a well developed, well nourished patient who is awake, alert, sebastien and in no acute distress. Head/Face: Normocephalic, atraumatic. Eyes: Pupils equal round and reactive to light, extra-ocular motions intact. Lids and lashes normal. Conjunctiva and sclera are non-icteric and not injected. Cornea within normal limits. Periorbital areas with no swelling, redness, or edema. ENT: Nares patent. No nasal discharge, no septal abnormalities noted. Tympanic membranes are normal and external auditory canals are clear. Oropharynx with no redness, swelling, or masses, exudates, or evidence of obstruction, uvula midline. Mucous membranes moist. Neck: Trachea midline, no thyromegaly or masses palpated, and no cervical lymphadenopathy. Supple, full range of motion without nuchal rigidity, or vertebral point tenderness. No Meningismus. Chest/axilla: Normal chest wall appearance and motion. Nontender with no deformity. No lesions are appreciated. Respiratory: Lungs have equal breath sounds bilaterally, clear to auscultation and percussion. No rales, rhonchi or wheezes noted. No increased work of breathing, no retractions or nasal flaring. Abdomen/GI: Soft, non-tender, with normal bowel sounds. No distension or tympany. No guarding or rebound. No evidence of tenderness throughout. Back: No spinal tenderness. No costovertebral tenderness. Full range of motion. Male : Normal genitalia with no discharge or lesions. Skin: Warm, dry with normal turgor. Normal color with no rashes, no lesions, and no evidence of cellulitis. MS/ Extremity: Pulses equal, no cyanosis. Neurovascular intact. Full, normal range of motion. Neuro: Awake and alert, GCS 15, oriented to person, place, time, and situation. Cranial nerves II-XII grossly intact. Motor strength 5/5 in all extremities. Sensory grossly intact. Cerebellar exam normal. Normal gait. Psych: Awake, alert, with orientation to person, place and time. Behavior, mood, and affect are within normal limits. 00:22 Cardiovascular: Rate: normal, Rhythm: regular, Pulses: Pulses are 4+ in bilateral radial, brachial, femoral, popliteal, posterior tibial and and dorsalis pedis arteries.. Heart sounds: normal, Edema: is not appreciated, JVD: is not appreciated. 00:28 Musculoskeletal/extremity: DVT Exam: No signs of deep vein thrombosis. no pain, no sebastien swelling, no tenderness, negative Homans' sign noted on exam, no appreciated bluish discoloration, no erythema, no increased warmth. Vital Signs: 00:18 BP 121 / 83; Pulse 101; Resp 23 S; Temp 99.7(TE); Pulse Ox 87% on R/A; Weight 124.74 kg jd3 (R); Height 6 ft. 1 in. (185.42 cm) (R); Pain 8/10; 00:25 Pulse Ox 95% on 2 lpm NC; jd3 00:30 BP 120 / 74; Pulse 100; Resp 23 S; Pulse Ox 96% on 2 lpm NC; jd3 01:44 BP 131 / 86; Pulse 99; Resp 18 S; Pulse Ox 95% on 2 lpm NC; jd3 02:40 BP 92 / 57; Pulse 82; Resp 14 S; Pulse Ox 97% on R/A; jd3 03:21 BP 108 / 71; Pulse 80; Resp 14 S; Pulse Ox 97% on R/A; Pain 0/10; jd3 04:00 BP 106 / 66; Pulse 81; Resp 26; Temp 99.0(O); Pulse Ox 93% on 2 lpm NC; mw2 00:18 Body Mass Index 36.28 (124.74 kg, 185.42 cm) jd3 MDM: 00:16 Patient medically screened. [facility] 00:26 Data reviewed: vital signs, nurses notes, lab test result(s), EKG, radiologic studies, [facility] plain films. 05/10 00:16 Order name: Basic Metabolic Panel; Complete Time: 01: bb 05/10 00:16 Order name: CBC with Diff; Complete Time: 01: bb 05/10 00:16 Order name: LFT's; Complete Time: 01: bb 05/10 00:16 Order name: Magnesium; Complete Time: 01:01 05/10 00:16 Order name: NT PRO-BNP; Complete Time: 01:01 05/10 00:16 Order name: PT-INR; Complete Time: 01:01 05/10 00:16 Order name: Troponin (emerg Dept Use Only); Complete Time: 01:01 05/10 00:16 Order name: XRAY Chest (1 view) 05/10 05:11 Order name: CBC with Automated Diff ED[facility] 05/10 05:17 Order name: Basic Metabolic Panel [facility] 05/10 05:45 Order name: Troponin I [facility] 05/10 05:45 Order name: Magnesium EDMS 05/10 00:16 Order name: EKG; Complete Time: 00:20 05/10 00:16 Order name: Cardiac monitoring; Complete Time: 00:21 05/10 00:16 Order name: EKG - Nurse/Tech; Complete Time: 00:21 05/10 00:16 Order name: IV Saline Lock; Complete Time: 00:21 05/10 00:16 Order name: Labs collected and sent; Complete Time: 00:25 05/10 00:16 Order name: O2 Per Protocol; Complete Time: 00:21 bb 05/10 00:16 Order name: O2 Sat Monitoring; Complete Time: 00:21 bb Administered Medications: 01:04 CANCELLED (Duplicate Order): Lasix 40 mg IVP once sebastien 01:21 Drug: Aspirin Chewable Tablet 324 mg Route: PO; jd3 02:20 Follow up: Response: No adverse reaction jd3 01:21 Drug: PlaVIX 75 mg Route: PO; jd3 02:20 Follow up: Response: No adverse reaction jd3 01:22 Drug: Lovenox 1 mg/kg Route: Sub-Q; Site: abdomen; jd3 02:20 Follow up: Response: No adverse reaction jd3 01:22 Drug: Coreg 12.5 mg Route: PO; jd3 02:20 Follow up: Response: No adverse reaction jd3 01:24 Drug: morphine 2 mg Route: IVP; Site: left antecubital; jd3 02:20 Follow up: Response: No adverse reaction jd3 01:25 Drug: Zofran 4 mg Route: IVP; Site: left antecubital; jd3 02:20 Follow up: Response: No adverse reaction jd3 01:25 Drug: Magnesium Sulfate 2 grams Route: IVPB; Infused Over: 2 hrs; Site: left jd3 antecubital; 02:33 Follow up: Response: No adverse reaction; IV Status: Completed infusion; IV Intake: 50mlea 01:26 Drug: Lasix 40 mg Route: IVP; Site: left antecubital; jd3 02:20 Follow up: Response: No adverse reaction jd3 03:25 Not Given (Duplicate Order): morphine 2 mg IVP once jd3 Disposition: 05/10/19 00:27 Hospitalization ordered by Mitesh Moffett for Inpatient Admission. Preliminary diagnosis are Chest pain, unspecified, Dyspnea, Essential (primary) hypertension, Type 2 diabetes mellitus, Combined systolic (congestive) and diastolic (congestive) heart failure. - Bed requested for Telemetry/MedSurg (Inpatient). - Status is Inpatient Admission. ss - Condition is Fair. - Problem is new. - Symptoms have improved. UTI on Admission? No Signatures: Dispatcher [employer] EDMS Chris Neumann MD MD cha Ballard, Brenda, RN RN bb Smirch, Shelby, RN RN ss Garcia, Cindy, RN RN cg Davies, Jonathon, RN RN jd3 Robles, Autumn [facility] Cristina Soto RN, ea Corrections: (The following items were deleted from the chart) 01: 00:27 Hospitalization Ordered by Mitesh Moffett MD for Observation. Preliminary sebastien diagnosis is Chest pain, unspecified; Dyspnea; Essential (primary) hypertension; Type 2 diabetes mellitus. Bed requested for Telemetry/MedSurg (observation). Status is Observation. Condition is Fair. Problem is new. Symptoms have improved. UTI on Admission? No. sebastien 01:04 01:02 Lasix 40 mg IVP once ordered. sebastien crowe 03:45 01:01 05/10/2019 00:27 Hospitalization Ordered by Mitesh Moffett MD for Inpatient ar5 Admission. Preliminary diagnosis is Chest pain, unspecified; Dyspnea; Essential (primary) hypertension; Type 2 diabetes mellitus; Combined systolic (congestive) and diastolic (congestive) heart failure. Bed requested for Telemetry/MedSurg (Inpatient). Status is Inpatient Admission. Condition is Fair. Problem is new. Symptoms have improved. UTI on Admission? No. sebastien 06:07 03:45 05/10/2019 00:27 Hospitalization Ordered by Mitesh Moffett MD for Inpatient cg Admission. Preliminary diagnosis is Chest pain, unspecified; Dyspnea; Essential (primary) hypertension; Type 2 diabetes mellitus; Combined systolic (congestive) and diastolic (congestive) heart failure. Bed requested for [facility] ER HOLD. Status is Inpatient Admission. Condition is Fair. Problem is new. Symptoms have improved. UTI on Admission? No. ar5 07:28 06:07 05/10/2019 00:27 Hospitalization Ordered by Mitesh Moffett MD for Inpatient ss Admission. Preliminary diagnosis is Chest pain, unspecified; Dyspnea; Essential (primary) hypertension; Type 2 diabetes mellitus; Combined systolic (congestive) and diastolic (congestive) heart failure. Bed requested for Telemetry/MedSurg (Inpatient). Status is Inpatient Admission. Condition is Fair. Problem is new. Symptoms have improved. UTI on Admission? No. cg
--- NOTE | 2019-05-10 00:28 | ER ---
Nurse's Notes [facility] Name: Nikos Corona Age: 53 yrs Sex: Male : 1965 Arrival Date: 05/10/2019 Time: 00:15 Bed 26 Private MD: Diagnosis: Chest pain, unspecified;Dyspnea;Essential (primary) hypertension;Type 2 diabetes mellitus;Combined systolic (congestive) and diastolic (congestive) heart failure Presentation: 05/10 00:14 Presenting complaint: Presenting complaint: police stated: he was having chest pain and jd3 shortness of breath. he was able to tell me that he had a heart attack last week and he was having another one now.". 00:14 Transition of care: patient was not received from another setting of care. Onset of jd3 symptoms was May 10, 2019. Risk Assessment: Do you want to hurt yourself or someone else? Patient reports no desire to harm self or others. Initial Sepsis Screen: Does the patient meet any 2 criteria? No. Patient's initial sepsis screen is negative. Does the patient have a suspected source of infection? No. Patient's initial sepsis screen is negative. Care prior to arrival: None. 00:14 Method Of Arrival: Law Enforcement: [place] [employer] jd3 00:14 Acuity: YESI 2 jd3 Historical: - Allergies: 00:37 Rifampin; jd3 00:37 Sulfa (Sulfonamide Antibiotics); jd3 - PMHx: 00:37 PTSD; Myocardial infarction; Hyperlipidemia; CAD; Diabetes - NIDDM; DVT; osteomyelitis; jd3 CHF; neuropathy; Anxiety; Hypertension; PVD; - PSHx: 00:37 TIBIA FIBULA SURGERY; Knee surgery; Heart stents; BACK SURGERY; FEMUR SURGERY; defib; jd3 - Immunization history:: Adult Immunizations up to date. - Social history:: Smoking status: unknown. - Family history:: not pertinent. - Ebola Screening: : Patient negative for fever greater than or equal to 101.5 degrees Fahrenheit, and additional compatible Ebola Virus Disease symptoms. Screenin:40 Abuse screen: Denies threats or abuse. Nutritional screening: No deficits noted. jd3 Tuberculosis screening: No symptoms or risk factors identified. Fall Risk IV access (20 points). Ambulatory Aid- None/Bed Rest/Nurse Assist (0 pts). Gait- Normal/Bed Rest/Wheelchair (0 pts) Mental Status- Oriented to own ability (0 pts). Total Baron Fall Scale indicates No Risk (0-24 pts). Assessment: 00:20 General: Appears uncomfortable, Behavior is cooperative, appropriate for age, anxious. jd3 Pain: Complains of pain in chest Pain does not radiate. Pain currently is 8 out of 10 on a pain scale. Quality of pain is described as sharp, Also complains of shortness of breath. Neuro: Level of Consciousness is awake, alert, obeys commands, Oriented to person, place, time, situation, Appropriate for age. Cardiovascular: Reports chest pain, shortness of breath, Heart tones S1 S2 present Capillary refill < 3 seconds Rhythm is sinus tachycardia. Respiratory: Reports shortness of breath at rest Airway is patent Respiratory effort is labored, shallow, Respiratory pattern is symmetrical, tachypnea Breath sounds are clear bilaterally. GI: No signs and/or symptoms were reported involving the gastrointestinal system. : No signs and/or symptoms were reported regarding the genitourinary system. EENT: No signs and/or symptoms were reported regarding the EENT system. Derm: Skin is intact, Skin is diaphoretic, Skin is normal, Skin temperature is warm. Musculoskeletal: Circulation, motion, and sensation intact. Range of motion: intact in all extremities. 00:50 Reassessment: Patient appears in no apparent distress at this time. Patient and/or jd3 family updated on plan of care and expected duration. Pain level reassessed. Patient is alert, oriented x 3, equal unlabored respirations, skin warm/dry/pink. Patient states feeling better. 01:39 Reassessment: Patient appears in no apparent distress at this time. Patient and/or jd3 family updated on plan of care and expected duration. Pain level reassessed. Patient is alert, oriented x 3, equal unlabored respirations, skin warm/dry/pink. pt reports breathing better and decreased pain. resting in bed with eyes closed, even and unlabored respirations, IV infusing medication to ordered rate. 02:41 Reassessment: Patient appears in no apparent distress at this time. No changes from jd3 previously documented assessment. Patient and/or family updated on plan of care and expected duration. Pain level reassessed. Patient is alert, oriented x 3, equal unlabored respirations, skin warm/dry/pink. 03:18 Reassessment: Patient appears in no apparent distress at this time. Patient and/or jd3 family updated on plan of care and expected duration. Pain level reassessed. Patient is alert, oriented x 3, equal unlabored respirations, skin warm/dry/pink. pt resting in bed with eyes closed. even and unlabored respirations. charting continued in [facility]. Patient denies pain at this time. Vital Signs: 00:18 BP 121 / 83; Pulse 101; Resp 23 S; Temp 99.7(TE); Pulse Ox 87% on R/A; Weight 124.74 kg jd3 (R); Height 6 ft. 1 in. (185.42 cm) (R); Pain 8/10; 00:25 Pulse Ox 95% on 2 lpm NC; jd3 00:30 BP 120 / 74; Pulse 100; Resp 23 S; Pulse Ox 96% on 2 lpm NC; jd3 01:44 BP 131 / 86; Pulse 99; Resp 18 S; Pulse Ox 95% on 2 lpm NC; jd3 02:40 BP 92 / 57; Pulse 82; Resp 14 S; Pulse Ox 97% on R/A; jd3 03:21 BP 108 / 71; Pulse 80; Resp 14 S; Pulse Ox 97% on R/A; Pain 0/10; jd3 04:00 BP 106 / 66; Pulse 81; Resp 26; Temp 99.0(O); Pulse Ox 93% on 2 lpm NC; mw2 00:18 Body Mass Index 36.28 (124.74 kg, 185.42 cm) j ED Course: 00:15 Patient arrived in ED. bb 00:15 Chris Neumann MD is Attending Physician. sebastien 00:18 Rigo Muller RN is Primary Nurse. jd3 00:18 Inserted saline lock: 20 gauge in left antecubital area, using aseptic technique. Blood jd3 collected. 00:26 Mitesh Moffett MD is Hospitalizing Provider. sebastien 00:35 Triage completed. jd3 00:39 Arm band placed on. jd3 00:40 XRAY Chest (1 view) In Process Unspecified. EDMS 00:56 Notified ED physician of a critical lab result(s). Mag of 1.4. Dr Neumann notified. bb 02:41 Patient has correct armband on for positive identification. Placed in gown. Bed in low jd3 position. Call light in reach. Side rails up X 1. 03:21 No provider procedures requiring assistance completed. Patient admitted, IV remains in jd3 place. Administered Medications: 01:04 CANCELLED (Duplicate Order): Lasix 40 mg IVP once sebastien 01:21 Drug: Aspirin Chewable Tablet 324 mg Route: PO; jd3 02:20 Follow up: Response: No adverse reaction jd3 01:21 Drug: PlaVIX 75 mg Route: PO; jd3 02:20 Follow up: Response: No adverse reaction jd3 01:22 Drug: Lovenox 1 mg/kg Route: Sub-Q; Site: abdomen; jd3 02:20 Follow up: Response: No adverse reaction jd3 01:22 Drug: Coreg 12.5 mg Route: PO; jd3 02:20 Follow up: Response: No adverse reaction jd3 01:24 Drug: morphine 2 mg Route: IVP; Site: left antecubital; jd3 02:20 Follow up: Response: No adverse reaction jd3 01:25 Drug: Zofran 4 mg Route: IVP; Site: left antecubital; jd3 02:20 Follow up: Response: No adverse reaction jd3 01:25 Drug: Magnesium Sulfate 2 grams Route: IVPB; Infused Over: 2 hrs; Site: left jd3 antecubital; 02:33 Follow up: Response: No adverse reaction; IV Status: Completed infusion; IV Intake: 50mlea 01:26 Drug: Lasix 40 mg Route: IVP; Site: left antecubital; jd3 02:20 Follow up: Response: No adverse reaction jd3 03:25 Not Given (Duplicate Order): morphine 2 mg IVP once jd3 Intake: 02:33 IV: 50ml; Total: 50ml. ea Outcome: 00:27 Decision to Hospitalize by Provider. sebastien 03:22 Admitted to ER Hold. Please see [facility] for further documentation. jd3 03:22 Condition: stable 03:22 Instructed on the need for admit, Demonstrated understanding of instructions. 07:28 Patient left the ED. ss Signatures: Dispatcher [facility] Chris Neumann MD MD cha Ballard, Brenda, RN RN bb Smirch, Shelby, RN RN Cristina Soto RN RN ea Davies, Jonathon, RN Lily Lockwood mw2 Corrections: (The following items were deleted from the chart) 00:35 00:14 Presenting complaint: neha solomon
[2019-05-10 00:33] LABS: Absolute Lymphocytes (CBC) 2.4 K/uL (0.7-4.9); Basophils % 0.9 % (0-1.3); Eosinophils % 4.1 % (0-4.4); Hematocrit 38.5 % (39.6-49.0); Lymphocytes % 19.8 % (15.3-44.8); MPV 8.7 fL (7.6-11.3); Monocytes % 4.6 % (3.3-12.3); RBC Red Blood Cell Count 4.09 M/uL (4.33-5.43)
[2019-05-10 00:41] LABS: Protime INR 1.04
[2019-05-10 00:52] LABS: Potassium 4.1 mmol/L (3.5-5.1)
[2019-05-10 00:55] LABS: Albumin 3.6 g/dL (3.4-5.0); Bilirubin Direct 0.1 mg/dL (0-0.2); Bilirubin Total 0.6 mg/dL (0.2-1.0); Protein, Total 7.6 g/dL (6.4-8.2); Troponin (Emerg Dept Use Only) 0.1 ng/mL (0.0-0.045)
[2019-05-10 00:56] LABS: Magnesium 1.4 mg/dL (1.8-2.4)
[2019-05-10] MEDS ORDERED: ASPIRIN 81 MG CHEWABLE TABLET ONE (00:58)
[2019-05-10] MEDS ORDERED: CARVEDILOL 6.25 MG TAB ONE (00:59)
[2019-05-10] MEDS ORDERED: ONDANSETRON 4 MG/2 ML VIAL ONE (00:59)
[2019-05-10] MEDS ORDERED: CLOPIDOGREL 75 MG TABLET ONE (00:59)
[2019-05-10] MEDS ORDERED: MORPHINE 2 MG/ML SYR ONE (00:59)
[2019-05-10] MEDS ORDERED: ENOXAPARIN 100 MG/ML SYR SQ ONE (01:00)
[2019-05-10] MEDS ORDERED: ENOXAPARIN 30 MG/0.3 ML SQ ONE (01:00)
[2019-05-10] MEDS ORDERED: FUROSEMIDE 40 MG/4 ML VIAL ONE (01:23)
[2019-05-10] MEDS ORDERED: Magnesium Sulfate 2gm IVPB 2 G/50 ML BAG IV ONE ×3 (01:24→06:10)
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
[2019-05-10] MEDS ORDERED: ONDANSETRON 4 MG/2 ML VIAL IV PRN (02:32)
[2019-05-10 04:40] VITALS: BMI 37.3
[2019-05-10 04:53] LABS: Absolute Lymphocytes (CBC) 2.6 K/uL (0.7-4.9); Eosinophils % 3.9 % (0-4.4); Hematocrit 35.9 % (39.6-49.0); Lymphocytes % 20.4 % (15.3-44.8); MPV 7.9 fL (7.6-11.3); Monocytes % 4.6 % (3.3-12.3); RBC Red Blood Cell Count 3.83 M/uL (4.33-5.43)
[2019-05-10 05:15] LABS: BUN Blood Urea Nitrogen 17 mg/dL (7-18); Bicarbonate 29 mmol/L (21-32); Glucose Level 261 mg/dL (74-106); Potassium 3.8 mmol/L (3.5-5.1); Sodium Level 140 mmol/L (136-145)
[2019-05-10 05:45] LABS: Magnesium 1.5 mg/dL (1.8-2.4); Troponin I 0.1 ng/mL (0.0-0.045)
--- NOTE | 2019-05-10 08:06 | RAD REPORT ---
EXAM DESCRIPTION: Kam Single View05/10/2019 12:39 am CLINICAL HISTORY: Chest pain COMPARISON: April 30, 2019 FINDINGS: Mild bilateral pulmonary opacities. . The heart is mildly enlarged. Pacemaker leads are i n place. IMPRESSION: Mild CHF
[2019-05-10] MEDS ORDERED: POTASSIUM CL SA 10 MEQ TAB PO ONE (09:00)
[2019-05-10] MEDS: VENLAFAXINE HCL 50 MG PO SCH ×2 (09:00→19:39)
--- NOTE | 2019-05-10 09:08 | EKG ---
Test Date: 2019-05-10 Test Time: 00:05:46 Credentialing Assistant: AER MEASUREMENT RESULTS: Intervals: Rate: 106 [place]: 206 QRSD: 116 QT: 334 QTc: 443 [place]: P: 43 [place]: 206 QRS: -62 T: 83 INTERPRETIVE STATEMENTS: Sinus tachycardia Possible Left atrial enlargement Left axis deviation Pulmonary disease pattern Inferior infarct, age undetermined Abnormal ECG Compared to ECG 05/01/2019 08:53:39 Left-axis deviation now present Sinus rhythm no longer present First degree AV block no longer present Right superior axis no longer present Myocardial infarct finding still present Electronically Signed On 05-10-19 09:07:12 CDT by Ankit Veloz
[2019-05-10] MEDS: NICOTINE 21 MG/PAT TD SCH (09:39)
[2019-05-10] MEDS: CARVEDILOL 12.5 MG TAB PO SCH ×2 (09:40→16:16)
[2019-05-10] MEDS: FUROSEMIDE 40 MG/4 ML VIAL IV SCH ×2 (09:40→16:17)
[2019-05-10] MEDS: GABAPENTIN 300 MG CAP PO SCH ×3 (09:40→21:50)
[2019-05-10 12:17] LABS: Urine Appearance CLEAR; Urine Bilirubin NEGATIVE (NEG); Urine Blood NEGATIVE (NEG); Urine Color YELLOW; Urine Glucose 2+ (NEG); Urine Protein NEGATIVE (NEG); Urine Urobilinogen 0.2 mg/dL (0.2-1.0); Urine pH 6.5 (5.0-7.0)
[2019-05-10 12:18] LABS: Urine Microscopic Reflex NO UMIC
[2019-05-10] MEDS ORDERED: CLOPIDOGREL 75 MG TABLET PO ONE (12:57)
[2019-05-10] MEDS: ISOSORBIDE MONO SR 60 MG TAB PO SCH (13:10)
[2019-05-10 16:15] LABS: Arterial Blood Carboxyhemoglob 2.6 % (0-1.5); Blood Gas Oxyhemoglobin 77.9 % (94-97); Blood O2 Saturation 80.5 % (92-98.5)
[2019-05-10] MEDS ORDERED: MAGNESIUM SULFATE 1 gm IVPB 1 GM/100 ML BAG IV ONE (16:24)
[2019-05-10] MEDS ORDERED: GLUCAGON 1 MG/VIAL IM PRN (16:34)
[2019-05-10] MEDS ORDERED: D50W 25 GM/50 ML SYRINGE IV PRN (16:34)
[2019-05-10] MEDS: INSULIN -REGULAR HUMAN 50 UNIT/0.5 ML ML SQ SCH ×2 (17:17→21:51)
--- NOTE | 2019-05-10 17:23 | CON ---
History Of Present Illness: Mr. Corona is 53. The patient came in with an episode of paroxysmal noct urnal dyspnea to our emergency room today. He was found to have pulmonary edema on his chest x-ray. He also has a defibrillator in place that seems to be in its normal position according to x-ray find ings. The patient has a history of heart disease with multiple LAD stents placed several years ago. He had a defibrillator placed several years ago and roughly 1 week ago he had evidence of myocardial necrosis. He underwent a cardiac cath and a stent was placed in the mid LAD. He went home feeling fine, take his medications that awakened with paroxysmal nocturnal dyspnea. Listening to him, descri bed his diet, he is really not following a low-sodium diet. We will try and teach him about that and we do not have the list of medications that he was taking. Hopefully we will get that straightened out and have it in the chart correctly. The patient for sure needs to be on aspirin, Plavix and high -dose statin therapy. He also needs to be on diuretics. We know his ejection fraction is in the 30s . He might benefit from being on Entresto but he should be on an angiotensin receptor edyta and be ta-edyta and diuretics in addition to the dual antiplatelet therapy and statin therapy. If he does that and follows a low-sodium diet, he should be able to avoid hospitalization such as this. He den ies having any chest pain. He was short of breath. He is allergic to rifampin and sulfa. Tobacco u se 0 now, heavy in the past. Alcohol use minimal. Physical Examination: General: A 6 feet tall, 275 pounds. Obese, alert, oriented, pleasant, not in distress. Lungs: Sparse basilar crackles. Heart: Regular rate and rhythm. No significant murmur or gallop. Abdomen: Soft. Extremities: Palpable but diminished distal pulses and 2 to 3+ pitting edema. Impression: The patient needs diuresis, dual anti-platelet therapy, high dose statin therapy, beta b lockers and angiotensin receptor blockers. Thank you very much for your kind referral of Mr. Corona. I will follow him with you. GERONIMO/GERHARD Voice ID: [id number] Report ID: [id number]
[2019-05-10] MEDS ORDERED: ATORVASTATIN 40 MG TAB PO SCH (21:00)
[2019-05-10] MEDS ORDERED: ATORVASTATIN 80 MG TAB PO SCH (21:00)
[2019-05-11] MEDS: FUROSEMIDE 40 MG/4 ML VIAL IV SCH ×2 (00:20→09:11)
[2019-05-11 04:25] LABS: Absolute Lymphocytes (CBC) 2.3 K/uL (0.7-4.9); Basophils % 0.9 % (0-1.3); Hematocrit 38.1 % (39.6-49.0); Lymphocytes % 23.8 % (15.3-44.8); MPV 8.3 fL (7.6-11.3); RBC Red Blood Cell Count 4.08 M/uL (4.33-5.43)
[2019-05-11 04:34] LABS: BUN Blood Urea Nitrogen 18 mg/dL (7-18); Bicarbonate 31 mmol/L (21-32); Glucose Level 302 mg/dL (74-106); Potassium 3.7 mmol/L (3.5-5.1); Sodium Level 138 mmol/L (136-145)
[2019-05-11 04:35] LABS: Magnesium 1.4 mg/dL (1.8-2.4)
[2019-05-11] MEDS ORDERED: POTASSIUM CL SA 10 MEQ TAB PO ONE (04:55)
[2019-05-11] MEDS ORDERED: Magnesium Sulfate 2gm IVPB 2 G/50 ML BAG IV ONE (04:56)
[2019-05-11 07:25] VITALS: BP 104/58; TEMP 98.1
[2019-05-11] MEDS ORDERED: LOSARTAN POTASSIUM 50 MG TABLET PO SCH (09:00)
[2019-05-11] MEDS: GABAPENTIN 300 MG CAP PO SCH (09:09)
[2019-05-11] MEDS: CARVEDILOL 12.5 MG TAB PO SCH (09:10)
[2019-05-11] MEDS: INSULIN -REGULAR HUMAN 50 UNIT/0.5 ML ML SQ SCH (09:11)
[2019-05-11] MEDS: ISOSORBIDE MONO SR 60 MG TAB PO SCH (09:11)
[2019-05-11] MEDS: NICOTINE 21 MG/PAT TD SCH (09:11)
--- NOTE | 2019-05-11 11:09 | P.DS ---
Admission Date: 05/10/19 Discharge Date: 05/11/19 Disposition: ROUTINE DISCHARGE Discharge Condition: GOOD Reason for Admission: CHF exacerbation Consultations: Cardiology - Problems (1) Acute on chronic systolic CHF (congestive heart failure) Current Visit: Yes Status: Acute (2) CAD (coronary artery disease) Onset Date: 06/08/18 Current Visit: No Status: Chronic Qualifiers: Coronary Disease-Associated Artery/Lesion type: [place] artery [place] vs. transplanted heart: [place] heart Associated angina: without angina Qualified Code(s): I25.10 - Atherosclerotic heart disease of [place] coronary artery without angina pectoris (3) Diabetes mellitus Onset Date: 06/08/18 Current Visit: No Status: Chronic Qualifiers: Diabetes mellitus type: type 2 Diabetes mellitus continuous churn buttermaker insulin use: with mcfp use Diabetes mellitus complication status: with other specified complication Qualified Code(s): E11.69 - Type 2 diabetes mellitus with other specified complication; Z79.4 - continuous churn buttermaker (current) use of insulin (4) HTN (hypertension) Onset Date: 06/08/18 Current Visit: No Status: Chronic Qualifiers: Hypertension type: essential hypertension (5) History of implantable cardiac defibrillator (ICD) Onset Date: 06/08/18 Current Visit: No Status: Chronic (6) Hyperlipidemia Onset Date: 06/08/18 Current Visit: No Status: Chronic Qualifiers: (7) Obesity Onset Date: 06/08/18 Current Visit: No Status: Chronic Qualifiers: (8) PVD (peripheral vascular disease) Onset Date: 06/08/18 Current Visit: No Status: Chronic (9) Tobacco abuse Onset Date: 06/08/18 Current Visit: No Status: Chronic Brief History of Present Illness: Mr Corona is a 53 years old male with history of CAD s/p multiple stent placement , last one was last week on the LAD. He states that since yesterday, he has had progressive SOB. Last night he was not able to sleep flat. He had chest pain today, lasting for 5 minutes, suprasternal area, no radiated. The patient has been taking his medication as indicated, but he has not been compliance with AHA diet. Lab work shows still slightly elevated Trop I, also elevated BNP, hypomagnesemia. CXR bilateral infiltrate consistent with CHF. Hospital Course: Overall during the hospital stay patient remained stable Patient was initially admitted to the hospital for CHF exacerbation most likely secondary to noncompliance with medication and tobacco smoking. Cardiology was consulted who started patient on IV Lasix here in the hospital. Patient had marked improvement in his symptoms after having adequate diuresis here in the hospital. Patient was weaned off of oxygen was saturating 95-96% on room air pedal edema had resolved. Patient has been able to ambulate here in the hospital and was able to tolerate his diet at which time patient was discharged home under stable condition was given a prescription for Lasix to continue at home. Patient was also asked to follow up with cardiology in about 1-2 days post discharge. Patient demonstrate understanding and thus was discharged home under stable condition. Patient also had to attend his dad's today and was very apprehensive about getting out of the hospital today. Patient while here in the hospital also refused to use oxygen several times and had been smoking while going down as well. Patient was educated extensively on tobacco smoking did not require oxygen on discharge due to oxygen saturation of 95-96%. However was 6 dictated extensively on the need to follow up with primary care provider to continue taking his medication as prescribed. Patient was also explained it extensively regarding fluid restriction and low sodium diet. Vital Signs/Physical Exam: Temp Pulse Resp BP Pulse Ox 98.1 F 80 18 104/58 L 92 05/11/19 04:00 05/11/19 04:00 05/11/19 04:00 05/11/19 04:00 05/11/19 04:00 General: Alert, In no apparent distress HEENT: Atraumatic, PERRLA, EOMI Neck: Supple, JVD not distended Respiratory: Clear to auscultation bilaterally, Normal air movement Cardiovascular: Regular rate/rhythm, Normal S1 S2 Gastrointestinal: Normal bowel sounds, No tenderness Musculoskeletal: No tenderness Integumentary: No rashes Neurological: Normal speech, Normal tone, Normal affect Lymphatics: No axilla or inguinal lymphadenopathy Laboratory Data at Discharge: WBC 9.8 K/uL (4.3-10.9) D 05/11/19 03:32 Hgb 13.1 g/dL (13.6-17.9) L 05/11/19 03:32 Hct 38.1 % (39.6-49.0) L 05/11/19 03:32 Plt Count 289 K/uL (152-406) 05/11/19 03:32 PT 12.3 SECONDS (9.5-12.5) 05/10/19 00:13 INR 1.04 05/10/19 00:13 Sodium 138 mmol/L (136-145) 05/11/19 03:32 Potassium 3.7 mmol/L (3.5-5.1) 05/11/19 03:32 BUN 18 mg/dL (7-18) 05/11/19 03:32 Creatinine 0.86 mg/dL (0.55-1.3) 05/11/19 03:32 Glucose 302 mg/dL (74-106) H 05/11/19 03:32 Magnesium 1.4 mg/dL (1.8-2.4) L* 05/11/19 03:32 Total Bilirubin 0.6 mg/dL (0.2-1.0) 05/10/19 00:13 AST 18 U/L (15-37) 05/10/19 00:13 ALT 17 U/L (12-78) 05/10/19 00:13 Alkaline Phosphatase 74 U/L (45-117) 05/10/19 00:13 Troponin I 0.07 ng/mL (0.0-0.045) H 05/10/19 10:26 Home Medications: Atorvastatin Calcium [Lipitor] 40 mg PO BEDTIME 01/13/18 Carvedilol 18.75 mg PO BIDWM 01/13/18 Gabapentin [Neurontin*] 900 mg PO TID 01/13/18 Venlafaxine HCl [Effexor] 50 mg PO BID 01/13/18 Isosorbide Mononitrate [Isosorbide Mononitrate ER] 60 mg PO DAILY 06/05/18 Insulin 70/30 NPH/Reg Human [Novolin 70/30*] 10 unit SQ BIDWM 04/30/19 Clopidogrel Bisulfate [Plavix*] 75 mg PO DAILY 05/10/19 Furosemide [Lasix*] 40 mg PO BID 05/10/19 Hydrocodone 10/APAP 325 [[place] 10/325*] 1 tab PO QID 05/10/19 Losartan Potassium [Cozaar] 50 mg PO DAILY #30 tablet 05/11/19 New Medications: Losartan Potassium [Cozaar] 50 mg PO DAILY #30 tablet Diet: Regular Activity: Ad tonya Followup: Torito Kraus MD [ACTIVE - CAN ADMIT] - 1-2 Weeks ((heart doctor)- Call to schedule an appointment ) Pancho Roberts DO [ACTIVE - CAN ADMIT] - 05/24/19 10:00 am (Follow up per scheduled appointment )
--- NOTE | 2019-05-11 12:13 | PN ---
Date of Progress Note: 05/11/2019 Mr. Corona is 53 who is admitted on 05/10/[address] Roberts. He was seen by Dr. Veloz for acute exac erbation of chronic systolic congestive heart failure, has an ejection fraction of 35%, coronary chai ry disease status post recent stent. He has defibrillator. He is presently on carvedilol, Lasix, AC E inhibitors, and diuretic as well as aspirin and Plavix. He is feeling great. His dad 48 hours ago. He is viewing to go today and tomorrow. From my standpoint, he can go home an d continue his beta blockers, Lasix, statin, aspirin, Plavix, as well as an TONE inhibitor. He may be a good candidate for Entresto but I will deal with that as an outpatient. He will come to see me in the office. He can go home today. LIZZIE/GERHARD Voice ID: [id number] Report ID: [id number]
[2019-05-11 12:22] VITALS: O2SAT 95
== END 2019-05-11 10:55 | disposition home or self-care (01) | DRG 293 ==
LOC: ER 00:08 → ERHOLD 01:27 → 4TH 07:48
PROVIDERS: ADMIT Internal Medicine; ATTEND Family Medicine
DX: I11.0 Hypertensive heart disease with heart failure (principal); I50.23 Acute on chronic systolic (congestive) heart failure; Z91.11 Patient's noncompliance with dietary regimen; F17.210 Nicotine dependence, cigarettes, uncomplicated; I25.10 Atherosclerotic heart disease of native coronary artery without angina pectoris; E11.9 Type 2 diabetes mellitus without complications; F41.9 Anxiety disorder, unspecified; E11.51 Type 2 diabetes mellitus with diabetic peripheral angiopathy without gangrene; E66.9 Obesity, unspecified; E78.5 Hyperlipidemia, unspecified; E83.42 Hypomagnesemia; Z68.37 Body mass index [BMI] 37.0-37.9, adult; Z79.4 Long term (current) use of insulin; Z95.5 Presence of coronary angioplasty implant and graft; Z95.810 Presence of automatic (implantable) cardiac defibrillator; Z88.2 Allergy status to sulfonamides
CPT/HCPCS: 36415; 71045; 80048; 80076; 81003; 82805; 82962; 83735; 83880; 84484; 85025; 85610; 93005; 94760; 96365; 96372; 96375; 99285; J1650; J1940; J2270; J2405; J3475

== ENCOUNTER 2019-05-30 10:03 | Emergency (ER) | payer OTHER ==
--- OUTSIDE RECORDS SUMMARY | 2019-05-30 10:05 | XMS REPORT ---
:1965 Author Organization [facility] Address [address] [place] [address] Dr. Crisostomo [address] [place] [id number] Care Team Providers Name Role Phone Unavailable Unavailable Unavailable Problems This patient has no known problems. Allergies, Adverse Reactions, Alerts This patient has no known allergies or adverse reactions. Medications This patient has no known medications.
[2019-05-30] MEDS ORDERED: MORPHINE 4 MG/ML SYR ONE (10:56)
[2019-05-30] MEDS ORDERED: ONDANSETRON 4 MG/2 ML VIAL ONE (10:57)
[2019-05-30 11:28] LABS: Absolute Lymphocytes (CBC) 1.3 K/uL (0.7-4.9); Basophils % 0.9 % (0-1.3); Eosinophils % 2.6 % (0-4.4); Hematocrit 37.8 % (39.6-49.0); Lymphocytes % 11.1 % (15.3-44.8); MPV 8.3 fL (7.6-11.3); Monocytes % 5.8 % (3.3-12.3); RBC Red Blood Cell Count 4.05 M/uL (4.33-5.43)
[2019-05-30 11:39] LABS: ALT/SGPT 16 U/L (12-78); AST/SGOT 12 U/L (15-37); Albumin 3.5 g/dL (3.4-5.0); Alkaline Phosphatase 79 U/L (45-117); BUN Blood Urea Nitrogen 12 mg/dL (7-18); Bicarbonate 29 mmol/L (21-32); Bilirubin Direct 0.2 mg/dL (0-0.2); Glucose Level 307 mg/dL (74-106); Lipase 113 U/L (73-393); Potassium 3.9 mmol/L (3.5-5.1); Protein, Total 7.3 g/dL (6.4-8.2); Sodium Level 136 mmol/L (136-145)
--- NOTE | 2019-05-30 12:28 | RAD REPORT ---
EXAM DESCRIPTION: CT - Abdomen Pelvis W Contrast - 05/30/2019 12:13 pm CLINICAL HISTORY: Abdominal pain, right upper quadrant pain radiating to the back, history of walsh ry artery disease, CHF and hypertension COMPARISON: Portable chest May 10, 2019 TECHNIQUE: Biphasic, helical CT imaging of the abdomen and pelvis was performed following 100 ml non -ionic IV contrast. Oral contrast was given. All CT scans are performed using dose optimization technique as appropriate and may include automated exposure control or mA/KV adjustment according to patient size. FINDINGS: No pleural effusion or pneumothorax. Heart is upper normal to slightly enlarged. No perica rdial thickening or effusion. Small lymph nodes are present around the right infrahilar region. Both chest films for comparison show fullness of the right hilum. This is likely related to CHF that was p resent at the time of those studies. However, a more significant right hilar process cannot be exclud ed. This exam is only limited evaluation of the lung lizama. The liver, spleen, and pancreas show no suspicious findings. Cholecystectomy clips are present. No bi liary tree dilatation. There is a small Bochdalek's hernia posterior left diaphragm. This contains on ly fat. Symmetric renal function is seen with no hydronephrosis or suspicious renal mass. No pyelonephritis o r acute parenchymal process. Partially filled urinary bladder shows no suspicious finding. Prostate g land and seminal vesicles show no suspicious findings. No adrenal abnormalities. No dilated bowel loops or bowel wall thickening. The appendix is normal. No free air, free fluid or i nflammatory stranding. No mass or bulky lymphadenopathy. No omental thickening. Small fat only bilat eral inguinal hernias are present. The patient has an upper abdominal ventral hernia 7 cm below the x iphoid process. This is 3 cm in diameter with a 3 centimeter neck. There is minimal congestion of the herniated fat. No bowel involvement. Disc and bony degenerative changes are present. No acute bone finding. Hardware is in place from katia or right femur surgical procedure IMPRESSION: Patient is status post cholecystectomy. No biliary tree dilatation or pancreatic abnorma lity. No hydronephrosis or acute finding. No appendicitis or other acute GI process. Patient has a midline 3 centimeter ventral hernia of the upper that is 7 cm below the xiphoid process . This contains only fat. Small bilateral inguinal hernias are present also containing only fat.
[2019-05-30 12:35] LABS: Urine Blood NEGATIVE (NEG); Urine Glucose 2+ (NEG); Urine Protein 2+ (NEG)
[2019-05-30] MEDS ORDERED: LIDOCAINE VISCOUS 2% SOLN 15 ML UDC ONE (12:49)
[2019-05-30] MEDS ORDERED: FAMOTIDINE 20 MG/2 ML VIAL IV ONE (12:49)
[2019-05-30] MEDS ORDERED: MAGNE/ALUM HYDROXD 30 ML UCUP ONE (12:49)
--- NOTE | 2019-05-30 13:40 | ER ---
Nurse's Notes [facility] Name: Nikos Corona Age: 53 yrs Sex: Male : 1965 Arrival Date: 05/30/2019 Time: 10:06 Bed 5 Private MD: Diagnosis: Unspecified abdominal pain Presentation: 05/30 10:22 Presenting complaint: Patient states: RUQ pain radiating to back since yesterday, iw denies vomiting or diarrhea, +nausea, denies urinary s/s. Transition of care: patient was not received from another setting of care. Onset of symptoms was May 29, 2019. Risk Assessment: Do you want to hurt yourself or someone else? Patient reports no desire to harm self or others. Initial Sepsis Screen: Does the patient meet any 2 criteria? No. Patient's initial sepsis screen is negative. Does the patient have a suspected source of infection? No. Patient's initial sepsis screen is negative. Care prior to arrival: None. 10:22 Method Of Arrival: Wheelchair iw 10:22 Acuity: YESI 3 iw Triage Assessment: 10:30 General: Appears in no apparent distress. comfortable, obese, Behavior is calm, bp cooperative, appropriate for age. Pain: Complains of pain in abdomen. EENT: No deficits noted. Neuro: No deficits noted. Cardiovascular: No deficits noted. Respiratory: No deficits noted. GI: Reports upper abdominal pain. : No signs and/or symptoms were reported regarding the genitourinary system. Derm: No deficits noted. Musculoskeletal: No deficits noted. Historical: - Allergies: 10:25 Rifampin; iw 10:25 Sulfa (Sulfonamide Antibiotics); iw - Home Meds: 10:25 Ambien 10 mg Oral tab 1 tab once daily [Active]; atorvastatin Oral 1 tab once daily iw [Active]; clopidogrel 75 mg Oral tab 1 tab once daily [Active]; Gabapentin 300 mg 3 tablets TID three times a day [Active]; Glipizide Oral once daily [Active]; Isosorbide Mononitrate Oral [Active]; Kdur 10 MEQ DAILY [Active]; Lasix 40 mg 1 tab PO DAILY (EVENING) [Active]; Lasiz 40 mg 0.5 tab DAILY (MORNING) [Active]; mag oxide 40mg 1 tab PO BID [Active]; [place] 10-325 mg Oral tab 1 tab every 6 hours [Active]; Omeprazole Oral [Active]; spironolactone 25 mg Oral tab 1 tab once daily [Active]; Venlafazine 50 mg 1 tab PO BID [Active]; - PMHx: 10:25 Anxiety; CAD; CHF; Diabetes - NIDDM; DVT; Hyperlipidemia; Hypertension; Myocardial iw infarction; neuropathy; osteomyelitis; PTSD; PVD; - PSHx: 10:25 TIBIA FIBULA SURGERY; Knee surgery; Heart stents; BACK SURGERY; FEMUR SURGERY; defib; iw - Immunization history:: Adult Immunizations not up to date. - Social history:: Smoking status: Patient uses tobacco products, smokes one-half pack cigarettes per day. - Ebola Screening: : Patient negative for fever greater than or equal to 101.5 degrees Fahrenheit, and additional compatible Ebola Virus Disease symptoms Patient denies exposure to infectious person Patient denies travel to an Ebola-affected area in the 21 days before illness onset No symptoms or risks identified at this time. Screenin:33 Abuse screen: Denies threats or abuse. Denies injuries from another. Nutritional bp screening: No deficits noted. Tuberculosis screening: No symptoms or risk factors identified. Fall Risk None identified. Assessment: 10:30 General: SEE TRIAGE NOTE. bp 11:00 Reassessment: LABS RECOLLECTED. CT PENDING. NO ACUTE S/S AT THIS TIME. aj 11:00 GI: Bowel sounds present X 4 quads. Abdomen is tender to palpation X 4 quads. bp 12:11 Reassessment: PT TO CT WITH TECH. bp 12:22 Reassessment: PT RETURNED FROM CT. bp 14:08 Reassessment: PT D/C HOME VIA W/C WITH FAMILY, DX WITH UNSPECIFIED ABDOMINAL PAIN. bp Vital Signs: 10:25 BP 142 / 89; Pulse 92; Resp 16; Pulse Ox 96% on R/A; Weight 124.28 kg; Height 6 ft. 1 iw in. (185.42 cm); Pain 10/10; 11:00 BP 124 / 73; Pulse 88; Resp 16; Pulse Ox 96% ; aj 13:00 BP 127 / 81; Pulse 85; Resp 18; Pulse Ox 96% ; bp 14:00 BP 133 / 79; Pulse 91; Resp 18; Temp 98; Pulse Ox 97% ; bp 10:25 Body Mass Index 36.15 (124.28 kg, 185.42 cm) iw ED Course: 10:06 Patient arrived in ED. mr 10:16 Saeed Jay, ENDOCRINOLOGY SPECIALIST is PHCP. pm1 10:16 Ya Farah MD is Attending Physician. pm1 10:18 Walter Servin, BLANCA is Primary Nurse. bp 10:23 Triage completed. iw 10:25 Arm band placed on. iw 10:31 Radiology exam delayed due to lab results not completed at this time. (BUN/Creatinine). vm2 10:33 Patient has correct armband on for positive identification. Bed in low position. Call bp light in reach. Side rails up X2. Adult w/ patient. 10:35 Inserted saline lock: 20 gauge in right antecubital area, using aseptic technique. aj Blood collected. 10:51 Radiology exam delayed due to lab results not completed at this time. (BUN/Creatinine). mw3 11:31 Radiology exam delayed due to lab results not completed at this time. (BUN/Creatinine). mw3 12:13 CT completed. Patient tolerated procedure well. Patient moved back from CT. mw3 12:13 CT Abd/Pelvis - IV Contrast Only In Process Unspecified. EDMS 13:36 Basic Metabolic Panel Sent. bp 13:36 CBC with Diff Sent. bp 14:08 No provider procedures requiring assistance completed. IV discontinued, intact, bp bleeding controlled, No redness/swelling at site. Pressure dressing applied. Administered Medications: 10:30 Drug: morphine 4 mg Route: IVP; Site: right antecubital; aj 12:37 Follow up: Response: No adverse reaction bp 10:30 Drug: Zofran 4 mg Route: IVP; Site: right antecubital; aj 12:37 Follow up: Response: No adverse reaction bp 12:36 Drug: GI Cocktail without - (Maalox Suspension 30 ml, Lidocaine Liquid 2 % 15 bp ml) Route: PO; 13:24 Follow up: Response: Pain is decreased bp 12:36 Drug: Pepcid 20 mg Route: IVP; Site: right antecubital; bp 13:24 Follow up: Response: Pain is decreased bp Outcome: 13:40 Discharge ordered by . pm1 14:08 Discharged to home via wheelchair, with family. bp 14:08 Condition: stable 14:08 Discharge instructions given to patient, Instructed on discharge instructions, follow up and referral plans. medication usage, Demonstrated understanding of instructions, follow-up care, medications, Prescriptions given X 2. 14:10 Patient left the ED. bp Signatures: Dispatcher [employer] EDHeavenly Nicole, Val Pereyra RN, Irene, RN RN iw Marinas, Patrick, SYLVIA ENDOCRINOLOGY SPECIALIST pm1 Ann Marie Card 2 Walter Servin RN RN bp Willis, Michelle mw3
--- NOTE | 2019-05-30 13:40 | EDPHYS ---
Physician Documentation [facility] Name: Nikos Corona Age: 53 yrs Sex: Male : 1965 Arrival Date: 05/30/2019 Time: 10:06 Bed 5 Private MD: ED Physician Ya Farah HPI: 05/30 11:17 This 53 yrs old Male presents to ER via Wheelchair with complaints of pm1 Abdominal Pain. 11:17 The patient presents with abdominal pain in the right upper quadrant. Onset: The pm1 symptoms/episode began/occurred yesterday. The symptoms radiate to right back. Associated signs and symptoms: Pertinent positives: nausea, Pertinent negatives: chest pain, constipation, diarrhea, dysuria, fever, headache, shortness of breath, vomiting. The symptoms are described as sharp. Modifying factors: The symptoms are alleviated by nothing, the symptoms are aggravated by nothing. Severity of pain: in the emergency department the pain is actually worse. The patient has not recently seen a physician. Historical: - Allergies: 10:25 Rifampin; iw 10:25 Sulfa (Sulfonamide Antibiotics); iw - Home Meds: 10:25 Ambien 10 mg Oral tab 1 tab once daily [Active]; atorvastatin Oral 1 tab once daily iw [Active]; clopidogrel 75 mg Oral tab 1 tab once daily [Active]; Gabapentin 300 mg 3 tablets TID three times a day [Active]; Glipizide Oral once daily [Active]; Isosorbide Mononitrate Oral [Active]; Kdur 10 MEQ DAILY [Active]; Lasix 40 mg 1 tab PO DAILY (EVENING) [Active]; Lasiz 40 mg 0.5 tab DAILY (MORNING) [Active]; mag oxide 40mg 1 tab PO BID [Active]; [place] 10-325 mg Oral tab 1 tab every 6 hours [Active]; Omeprazole Oral [Active]; spironolactone 25 mg Oral tab 1 tab once daily [Active]; Venlafazine 50 mg 1 tab PO BID [Active]; - PMHx: 10:25 Anxiety; CAD; CHF; Diabetes - NIDDM; DVT; Hyperlipidemia; Hypertension; Myocardial iw infarction; neuropathy; osteomyelitis; PTSD; PVD; - PSHx: 10:25 TIBIA FIBULA SURGERY; Knee surgery; Heart stents; BACK SURGERY; FEMUR SURGERY; defib; iw - Immunization history:: Adult Immunizations not up to date. - Social history:: Smoking status: Patient uses tobacco products, smokes one-half pack cigarettes per day. - Ebola Screening: : Patient negative for fever greater than or equal to 101.5 degrees Fahrenheit, and additional compatible Ebola Virus Disease symptoms Patient denies exposure to infectious person Patient denies travel to an Ebola-affected area in the 21 days before illness onset No symptoms or risks identified at this time. ROS: 11:17 Constitutional: Negative for fever, chills, and weight loss, Eyes: Negative for injury, pm1 pain, redness, and discharge, ENT: Negative for injury, pain, and discharge, Neck: Negative for injury, pain, and swelling, Cardiovascular: Negative for chest pain, palpitations, and edema, Respiratory: Negative for shortness of breath, cough, wheezing, and pleuritic chest pain. 11:17 Back: Negative for injury and pain, : Negative for injury, bleeding, discharge, and swelling, MS/Extremity: Negative for injury and deformity, Skin: Negative for injury, rash, and discoloration, Neuro: Negative for headache, weakness, numbness, tingling, and seizure. 11:17 Abdomen/GI: Positive for abdominal pain, nausea, of the right upper quadrant, Negative for vomiting, diarrhea, constipation. Exam: 11:17 Constitutional: This is a well developed, well nourished patient who is awake, alert, pm1 and in no acute distress. Head/Face: Normocephalic, atraumatic. Neck: Trachea midline, no thyromegaly or masses palpated, and no cervical lymphadenopathy. Supple, full range of motion without nuchal rigidity, or vertebral point tenderness. No Meningismus. Chest/axilla: Normal chest wall appearance and motion. Nontender with no deformity. No lesions are appreciated. Cardiovascular: Regular rate and rhythm with a normal S1 and S2. No gallops, murmurs, or rubs. Normal PMI, no JVD. No pulse deficits. Respiratory: Lungs have equal breath sounds bilaterally, clear to auscultation and percussion. No rales, rhonchi or wheezes noted. No increased work of breathing, no retractions or nasal flaring. 11:17 Back: No spinal tenderness. No costovertebral tenderness. Full range of motion. Skin: Warm, dry with normal turgor. Normal color with no rashes, no lesions, and no evidence of cellulitis. MS/ Extremity: Pulses equal, no cyanosis. Neurovascular intact. Full, normal range of motion. 11:17 Abdomen/GI: Inspection: abdomen appears normal, Bowel sounds: normal, Palpation: soft, mild abdominal tenderness, in the right upper quadrant, mass, is not appreciated, rebound tenderness, is not appreciated. 11:17 Neuro: Orientation: is normal, Motor: is normal, moves all fours. Vital Signs: 10:25 BP 142 / 89; Pulse 92; Resp 16; Pulse Ox 96% on R/A; Weight 124.28 kg; Height 6 ft. 1 iw in. (185.42 cm); Pain 10/10; 11:00 BP 124 / 73; Pulse 88; Resp 16; Pulse Ox 96% ; aj 13:00 BP 127 / 81; Pulse 85; Resp 18; Pulse Ox 96% ; bp 14:00 BP 133 / 79; Pulse 91; Resp 18; Temp 98; Pulse Ox 97% ; bp 10:25 Body Mass Index 36.15 (124.28 kg, 185.42 cm) iw MDM: 10:18 Patient medically screened. pm1 13:39 Data reviewed: vital signs. Data interpreted: Pulse oximetry: on room air is 96 %. pm1 Interpretation: normal. Counseling: I had a detailed discussion with the patient and/or guardian regarding: the historical points, exam findings, and any diagnostic results supporting the discharge/admit diagnosis, lab results, radiology results, the need for outpatient follow up, for definitive care, a corporate development officer, to return to the emergency department if symptoms worsen or persist or if there are any questions or concerns that arise at home. 05/30 10:26 Order name: Basic Metabolic Panel pm1 05/30 10:26 Order name: CBC with Diff pm05/30 10:26 Order name: Creatinine for Radiology; Complete Time: 11:45 pm05/30 10:26 Order name: Hepatic Function; Complete Time: 11:45 pm05/30 10:26 Order name: Lipase; Complete Time: 11:45 pm05/30 10:27 Order name: Basic Metabolic Panel; Complete Time: 11:45 EDMS 05/30 10:26 Order name: IV Saline Lock; Complete Time: 11:07 pm05/30 10:26 Order name: CT Abd/Pelvis - IV Contrast Only; Complete Time: 12:29 pm1 05/30 10:27 Order name: CBC with Automated Diff; Complete Time: 11:45 EDMS 05/30 12:24 Order name: Urine Dipstick--Ancillary (enter results); Complete Time: 13:34 eb 05/30 10:26 Order name: Labs collected and sent; Complete Time: 11:07 pm1 05/30 10:26 Order name: Urine Dipstick-Ancillary (obtain specimen); Complete Time: 12:12 pm1 05/30 10:59 Order name: Labs - recollect needed; Complete Time: 11:07 eb Administered Medications: 10:30 Drug: morphine 4 mg Route: IVP; Site: right antecubital; aj 12:37 Follow up: Response: No adverse reaction bp 10:30 Drug: Zofran 4 mg Route: IVP; Site: right antecubital; aj 12:37 Follow up: Response: No adverse reaction bp 12:36 Drug: GI Cocktail without - (Maalox Suspension 30 ml, Lidocaine Liquid 2 % 15 bp ml) Route: PO; 13:24 Follow up: Response: Pain is decreased bp 12:36 Drug: Pepcid 20 mg Route: IVP; Site: right antecubital; bp 13:24 Follow up: Response: Pain is decreased bp Disposition: 05/30/19 13:40 Discharged to Home. Impression: Unspecified abdominal pain. - Condition is Stable. - Discharge Instructions: Abdominal Pain, Adult. - Prescriptions for Pepcid 20 mg Oral Tablet - take 1 tablet by ORAL route every 12 hours for 10 days; 20 tablet. Bentyl 20 mg Oral Tablet - take 1 tablet by ORAL route every 6 hours As needed; 20 tablet. - Medication Reconciliation Form, Thank You Letter, Antibiotic Education, Prescription Opioid Use form. - Follow up: Emergency Department; When: As needed; Reason: Worsening of condition. Follow up: Private Physician; When: 2 - 3 days; Reason: Recheck today's complaints, Continuance of care, Re-evaluation by your physician. - Problem is new. - Symptoms have improved. Addendum: 06/03/2019 02:13 Co-signature as Attending Physician, Ya Farah MD. m a2 Signatures: Dispatcher [employer] EDMS Heavenly Roman RN Aislinn Galicia RN RN iw Marinas, Patrick, NP SHANKER OUT pm1 Walter Servin RN RN Ya Spann MD MD ma2 Chioma Persaud Corrections: (The following items were deleted from the chart) 05/30 14:10 13:40 05/30/2019 13:40 Discharged to Home. Impression: Unspecified abdominal pain. bp Condition is Stable. Forms are Medication Reconciliation Form, Thank You Letter, Antibiotic Education, Prescription Opioid Use. Follow up: Emergency Department; When: As needed; Reason: Worsening of condition. Follow up: Private Physician; When: 2 - 3 days; Reason: Recheck today's complaints, Continuance of care, Re-evaluation by your physician. Problem is new. Symptoms have improved. pm1
[2019-05-30 14:35] VITALS: O2SAT 96
[2019-05-30 14:38] VITALS: BP 127/81
== END 2019-05-30 14:10 | disposition home or self-care (01) ==
LOC: ER 10:03
DX: R10.11 Right upper quadrant pain (principal); I10 Essential (primary) hypertension; E11.9 Type 2 diabetes mellitus without complications; I50.9 Heart failure, unspecified; I25.2 Old myocardial infarction; F41.9 Anxiety disorder, unspecified; E78.5 Hyperlipidemia, unspecified; Z88.2 Allergy status to sulfonamides; Z88.8 Allergy status to other drugs, medicaments and biological substances; Z95.818 Presence of other cardiac implants and grafts
CPT/HCPCS: 85025; 80048; 36415; 80076; 81003; 83690; 74177; 96375; 96374; 99284; Q9967; J2405

== ENCOUNTER 2019-07-19 20:04 | Emergency (ER) | payer OTHER ==
--- OUTSIDE RECORDS SUMMARY | 2019-07-19 20:06 | XMS REPORT ---
:1965 Author Organization [facility] Address [address] [place] [address] Dr. Crisostomo [address] [place] [id number] Care Team Providers Name Role Phone Unavailable Unavailable Unavailable Problems This patient has no known problems. Allergies, Adverse Reactions, Alerts This patient has no known allergies or adverse reactions. Medications This patient has no known medications.
[2019-07-19 21:12] LABS: Absolute Lymphocytes (CBC) 2.6 K/uL (0.7-4.9); Basophils % 1.1 % (0-1.3); Hematocrit 42.5 % (39.6-49.0); Lymphocytes % 25.4 % (15.3-44.8); MPV 8.4 fL (7.6-11.3); RBC Red Blood Cell Count 4.54 M/uL (4.33-5.43)
[2019-07-19 21:16] LABS: Protime INR 0.94
--- NOTE | 2019-07-19 21:27 | ER ---
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 Transition of care: patient was not received from another setting of care. Onset of symptoms was July 19, 2019. Risk Assessment: Do you want to hurt yourself or someone else? Patient reports no desire to harm self or others. Initial Sepsis Screen: Does the patient meet any 2 criteria? No. Patient's initial sepsis screen is negative. Does the patient have a suspected source of infection? No. Patient's initial sepsis screen is negative. Care prior to arrival: None. 20:22 Method Of Arrival: Ambulatory lp1 20:22 Acuity: YESI 2 lp1 Historical: - Allergies: 20:26 Rifampin; lp1 20:26 Sulfa (Sulfonamide Antibiotics); lp1 - Home Meds: 20:26 Ambien 10 mg Oral tab 1 tab once daily [Active]; atorvastatin Oral 1 tab once daily lp1 [Active]; clopidogrel 75 mg Oral tab 1 tab once daily [Active]; Gabapentin 300 mg 3 tablets TID three times a day [Active]; Glipizide Oral once daily [Active]; Isosorbide Mononitrate Oral [Active]; Kdur 10 MEQ DAILY [Active]; Lasix 40 mg 1 tab PO DAILY (EVENING) [Active]; Lasiz 40 mg 0.5 tab DAILY (MORNING) [Active]; mag oxide 40mg 1 tab PO BID [Active]; [place] 10-325 mg Oral tab 1 tab every 6 hours [Active]; Omeprazole Oral [Active]; spironolactone 25 mg Oral tab 1 tab once daily [Active]; Venlafazine 50 mg 1 tab PO BID [Active]; - PMHx: 20:26 Anxiety; CAD; CHF; Diabetes - NIDDM; DVT; Hyperlipidemia; Hypertension; Myocardial lp1 infarction; neuropathy; osteomyelitis; PTSD; PVD; - PSHx: 20:26 Heart stents; Cholecystectomy; femur surgery; lp1 - Immunization history:: Adult Immunizations up to date. - Social history:: Smoking status: Patient uses tobacco products, smokes one pack cigarettes per day. Patient/guardian denies using alcohol, street drugs. - Ebola Screening: : No symptoms or risks identified at this time. - Family history:: not pertinent. - Hospitalizations: : No recent hospitalization is reported. Screenin:26 Abuse screen: Denies threats or abuse. Denies injuries from another. Nutritional lp1 screening: No deficits noted. Tuberculosis screening: No symptoms or risk factors identified. 21:33 The patient has not been NPO before screening. The patient is alert, able to follow rv commands. The patient does not exhibit slurred or garbled speech The patient is not exhibiting difficulty speaking. The patient does not exhibit difficulty understanding words. The patient is able to swallow own secretions with no drooling or need for suction. Patient tolerated one teaspoon of water. No drooling, immediate coughing, gurgling, or clearing of the throat was noted. The patient tolerated 90mL of water. No drooling, immediate coughing, gurgling, or clearing of the throat was noted. The patient passed the bedside swallow screening. Oral medications may be given as ordered. Contact Physician for further diet orders. Provider notified of bedside swallow screening results: Ya Farah MD. Fall Risk None identified. Assessment: 21:32 General: Appears in no apparent distress. comfortable, Behavior is calm, cooperative. rv Pain: Denies pain. Neuro: Level of Consciousness is awake, alert, obeys commands, Oriented to person, place, time, situation. Cardiovascular: Patient's skin is warm and dry. Rhythm is regular. Respiratory: Airway is patent. GI: No signs and/or symptoms were reported involving the gastrointestinal system. : No signs and/or symptoms were reported regarding the genitourinary system. EENT: Reports peripheral visual loss. Derm: Skin is intact. Musculoskeletal: No signs and/or symptoms reported regarding the musculoskeletal system. Vital Signs: 20:23 BP 128 / 95; Pulse 97; Resp 18; Temp 99.7(O); Pulse Ox 96% on R/A; Weight 122.47 kg lp1 (R); Height 6 ft. 2 in. (187.96 cm); Pain 0/10; 21:16 BP 111 / 83 LA (auto/lg); Pulse 89; Resp 15 S; Pulse Ox 93% on R/A; jp3 22:00 BP 130 / 98; Pulse 91; Resp 17; Pulse Ox 98% on R/A; rv 22:27 BP 119 / 82; Pulse 91; Resp 16; Temp 99; Pulse Ox 97% on R/A; rv 20:23 Body Mass Index 34.67 (122.47 kg, 187.96 cm) lp1 Visual Acuity: 20:33 Left Eye Visual acuity 20/70, Pupil size 3 mm, ; Right Eye Visual acuity 20/70, Pupil bb size 3 mm, ; Both Eyes Visual acuity 20/50; Without Lenses; ED Course: 20:05 Patient arrived in ED. am2 20:23 Triage completed. lp1 20:23 Arm band placed on right wrist. lp1 20:27 Ya Farah MD is Attending Physician. ma2 20:49 Cristi Virk, BLANCA is Primary Nurse. rv 20:55 No provider procedures requiring assistance completed. Inserted saline lock: 20 gauge ca1 in right antecubital area, using aseptic technique. Blood collected. 20:57 Radiology exam delayed due to per RN getting EKG done at this time. nj 21:08 Placed in gown. Bed in low position. Call light in reach. Side rails up X 1. Verbal jp3 reassurance given. boiling tub operator on. Pulse ox on. NIBP on. 21:10 CT Stroke Brain w/o Contrast In Process Unspecified. EDMS 21:15 Stroke CXR 1 View In Process Unspecified. EDMS 22:07 Julio Cesar Deng MD is Referral Physician. ma2 22:10 Julio Cesar Deng MD is Referral Physician. ma2 Administered Medications: 21:34 Drug: Aspirin 325 mg Route: PO; rv 22:28 Follow up: Response: No adverse reaction rv Point of Care Testing: Blood Glucose: 21:07 Blood Glucose: 380 mg/dL; jp3 Ranges: Outcome: 21:26 ER care complete, transfer ordered by . ma2 22:08 Discharge ordered by . rona : AMA AMA form signed rv : Condition: good : Instructed on follow up and referral plans. 22:28 Patient left the ED. rv Signatures: Dispatcher [employer] EDDanielle Mendoza, RN RN bb Paulette López RN RN lp1 Chin Rodrigues Amanda am2 Alzahri, Mohammad, MD MD ma2 Cristi Virk RN RN rv Bernard Caicedo jp3 Jonelle Bueno RN RN ca1
--- NOTE | 2019-07-19 21:27 | EDPHYS ---
Physician Documentation [facility] Name: Nikos Corona Age: 53 yrs Sex: Male : 1965 Arrival Date: 07/19/2019 Time: 20:05 Bed 28 Private MD: ED Physician Ya Farah HPI: 07/19 21:18 This 53 yrs old Male presents to ER via Ambulatory with complaints of Vision ma2 Problem, Loss Of Vision. 21:18 The patient presents to the emergency department with a vision problem, right visual ma2 field defect, problem with balance and dizziness for 2 days sudden unchanged never had this before . Onset: The symptoms/episode began/occurred suddenly, 2 day(s) ago. Associated signs and symptoms: Pertinent positives: visual field changes, Pertinent negatives: nausea, seizure. Severity of symptoms: At their worst the symptoms were moderate in the emergency department the symptoms are unchanged. Current symptoms: visual disturbance. The patient has not experienced similar symptoms in the past. Historical: - Allergies: 20:26 Rifampin; lp1 20:26 Sulfa (Sulfonamide Antibiotics); lp1 - Home Meds: 20:26 Ambien 10 mg Oral tab 1 tab once daily [Active]; atorvastatin Oral 1 tab once daily lp1 [Active]; clopidogrel 75 mg Oral tab 1 tab once daily [Active]; Gabapentin 300 mg 3 tablets TID three times a day [Active]; Glipizide Oral once daily [Active]; Isosorbide Mononitrate Oral [Active]; Kdur 10 MEQ DAILY [Active]; Lasix 40 mg 1 tab PO DAILY (EVENING) [Active]; Lasiz 40 mg 0.5 tab DAILY (MORNING) [Active]; mag oxide 40mg 1 tab PO BID [Active]; [place] 10-325 mg Oral tab 1 tab every 6 hours [Active]; Omeprazole Oral [Active]; spironolactone 25 mg Oral tab 1 tab once daily [Active]; Venlafazine 50 mg 1 tab PO BID [Active]; - PMHx: 20:26 Anxiety; CAD; CHF; Diabetes - NIDDM; DVT; Hyperlipidemia; Hypertension; Myocardial lp1 infarction; neuropathy; osteomyelitis; PTSD; PVD; - PSHx: 20:26 Heart stents; Cholecystectomy; femur surgery; lp1 - Immunization history:: Adult Immunizations up to date. - Social history:: Smoking status: Patient uses tobacco products, smokes one pack cigarettes per day. Patient/guardian denies using alcohol, street drugs. - Ebola Screening: : No symptoms or risks identified at this time. - Family history:: not pertinent. - Hospitalizations: : No recent hospitalization is reported. ROS: 21:18 Constitutional: Negative for fever, chills, and weight loss, Cardiovascular: Negative ma2 for chest pain, palpitations, and edema, Respiratory: Negative for shortness of breath, cough, wheezing, and pleuritic chest pain, Abdomen/GI: Negative for abdominal pain, nausea, diarrhea, and constipation, MS/Extremity: Negative for injury and deformity. 21:18 All other systems are negative. Exam: 21:18 Constitutional: This is a well developed, well nourished patient who is awake, alert, ma2 and in no acute distress. Chest/axilla: Normal chest wall appearance and motion. Nontender with no deformity. No lesions are appreciated. Cardiovascular: Regular rate and rhythm with a normal S1 and S2. No gallops, murmurs, or rubs. Normal PMI, no JVD. No pulse deficits. Respiratory: Lungs have equal breath sounds bilaterally, clear to auscultation and percussion. No rales, rhonchi or wheezes noted. No increased work of breathing, no retractions or nasal flaring. Abdomen/GI: Soft, non-tender, with normal bowel sounds. No distension or tympany. No guarding or rebound. No evidence of tenderness throughout. Skin: Warm, dry with normal turgor. Normal color with no rashes, no lesions, and no evidence of cellulitis. MS/ Extremity: Pulses equal, no cyanosis. Neurovascular intact. Full, normal range of motion. 21:18 Neuro: Orientation: is normal, Mentation: is normal, Cranial nerves: right temporal visual field defect. Cerebellar function: dysmetria is noted on the right, dysmetria is noted on the left, Motor: is normal, Sensation: Gait: is unsteady, ataxic. Vital Signs: 20:23 BP 128 / 95; Pulse 97; Resp 18; Temp 99.7(O); Pulse Ox 96% on R/A; Weight 122.47 kg lp1 (R); Height 6 ft. 2 in. (187.96 cm); Pain 0/10; 21:16 BP 111 / 83 LA (auto/lg); Pulse 89; Resp 15 S; Pulse Ox 93% on R/A; jp3 22:00 BP 130 / 98; Pulse 91; Resp 17; Pulse Ox 98% on R/A; rv 22:27 BP 119 / 82; Pulse 91; Resp 16; Temp 99; Pulse Ox 97% on R/A; rv 20:23 Body Mass Index 34.67 (122.47 kg, 187.96 cm) lp1 Visual Acuity: 20:33 Left Eye Visual acuity 20/70, Pupil size 3 mm, ; Right Eye Visual acuity 20/70, Pupil bb size 3 mm, ; Both Eyes Visual acuity 20/50; Without Lenses; MDM: 20:27 Patient medically screened. ma2 21:18 Data reviewed: vital signs, nurses notes, lab test result(s), finger stick glucose, ma2 amylase and lipase, radiologic studies, CT scan, ct showing left occipital lobe infarction, per hx he is out of tpa and thrombolytic window. Counseling: I had a detailed discussion with the patient and/or guardian regarding: the historical points, exam findings, and any diagnostic results supporting the discharge/admit diagnosis, the presence of at least one elevated blood pressure reading (>120/80) during this emergency department visit, radiology results, the need for outpatient follow up. Response to treatment: There is no appreciated change of the patient's symptoms at this time. ED course: no neurology available in our hospital . 22:05 ED course: i discussed need for transfer, he would like to go home AMA he understand ma2 risk of having another stroke and and will see a neurologist as outpatient \E\. 07/19 20:42 Order name: Basic Metabolic Panel [facility] 07/19 20:42 Order name: CBC with Diff [facility] 07/19 20:42 Order name: Protime (+inr) [facility] 07/19 20:42 Order name: Ptt, Activated [facility] 07/19 20:42 Order name: CT Stroke Brain w/o Contrast [facility] 07/19 20:58 Order name: Glucose, Ancillary Testing EDMS 07/19 20:42 Order name: Stroke CXR 1 View [facility] 07/19 20:42 Order name: EKG; Complete Time: 20:43 [facility] 07/19 20:42 Order name: Accucheck; Complete Time: 21:11 [facility] 07/19 20:42 Order name: Cardiac monitoring; Complete Time: 21:11 [facility] 07/19 20:42 Order name: EKG - Nurse/Tech; Complete Time: 21:11 [facility] 07/19 20:42 Order name: IV Saline Lock; Complete Time: 21:11 [facility] 07/19 20:42 Order name: Labs collected and sent; Complete Time: 21:12 [facility] 07/19 20:42 Order name: NPO; Complete Time: 21:12 [facility] 07/19 20:42 Order name: O2 Per Protocol; Complete Time: 21:11 [facility] 07/19 20:42 Order name: O2 Sat Monitoring; Complete Time: 21:11 [place] Administered Medications: 21:34 Drug: Aspirin 325 mg Route: PO; rv 22:28 Follow up: Response: No adverse reaction rv Point of Care Testing: Blood Glucose: 21:07 Blood Glucose: 380 mg/dL; jp3 Ranges: Critical Glucose Levels:Adult <50 mg/dl or >400 mg/dl <40 mg/dl or >180 mg/dl Disposition: 07/19/19 22:11 Patient has left against medical advice. 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 - Patients states they are going to Home. - Condition is Stable. Follow up: Julio Cesar Deng MD; When: Tomorrow; Reason: Continuance of care. - Problem is new. - Symptoms are unchanged. Signatures: Dispatcher [employer] EDPaulette Herrera RN RN lp1 Ya Farah MD MD ma2 Cristi Virk RN RN rv Corrections: (The following items were deleted from the chart) 22:07 21:26 07/19/2019 21:26 Transfer ordered to [facility]. Diagnosis is ma2 Cerebral infarction due to unspecified occlusion or stenosis of left posterior cerebral artery. Reason for transfer: Higher level of care. Accepting physician is acute stroke . Condition is Stable. Problem is new. Symptoms are unchanged. ma2 22:10 22:08 07/19/2019 22:08 Discharged to Home. Impression: Cerebral infarction due to ma2 embolism of left posterior cerebral artery. Condition is Stable. Forms are Medication Reconciliation Form, Thank You Letter, Antibiotic Education, Prescription Opioid Use. Follow up: Julio Cesar Deng; When: Tomorrow; Reason: Continuance of care. ma2 22:28 22:11 07/19/2019 22:11 Patients has left against medical advice. Impression: Cerebral rv infarction due to embolism of left posterior cerebral artery. Patient states they are going to Home. Condition is Stable. Follow up: Julio Cesar Deng; When: Tomorrow; Reason: Continuance of care. Problem is new. Symptoms are unchanged. ma2
[2019-07-19 21:28] LABS: Potassium 3.7 mmol/L (3.5-5.1)
[2019-07-19] MEDS ORDERED: ASPIRIN 325 MG TAB ONE (21:29)
[2019-07-19 23:03] VITALS: BP 119/82; TEMP 99; O2SAT 97
--- NOTE | 2019-07-20 07:21 | RAD REPORT ---
EXAM DESCRIPTION: RAD - Chest Single View - 07/19/2019 9:14 pm CLINICAL HISTORY: Cough and congestion, stroke protocol chest COMPARISON: April 2019 TECHNIQUE: AP portable chest image was obtained 8 hours . FINDINGS: Lung volumes are decreased compared to prior study. Interstitial markings are prominent bu t improved. Central vasculature shows slight improvement as well. Heart size remains enlarged. Trache a is midline. No measurable pleural effusion and no pneumothorax. No acute bony abnormality seen. No acute aortic findings suspected. IMPRESSION: Partial resolution of CHF/volume overload. No progressive finding.
--- NOTE | 2019-07-20 09:57 | RAD REPORT ---
EXAM DESCRIPTION: CT - Ct Stroke Brain Wo Cont - 07/20/2019 12:00 am CLINICAL HISTORY: Right eye visual loss for 2 days. COMPARISON: None. TECHNIQUE: CT scan of the brain without IV contrast. This exam was performed according to our depa rtmental dose-optimization program, which includes automated exposure control, adjustment of the mA a nd/or kV according to patient size and/or use of iterative reconstruction technique. FINDINGS: There is a focal area of hypodensity within the left occipital lobe suggestive of acute to subacute infarction. No evidence of intracranial hemorrhage. No midline shift or hydrocephalus. No air-fluid levels are seen in the paranasal sinuses to suggest acute sinusitis. No depressed skull fracture. IMPRESSION: 1. Findings suggestive of acute to subacute left occipital lobe infarct. Consider MRI for complete evaluation. 2. No acute intracranial hemorrhage. Emergent findings were discussed with Dr. Farah by Dr. Millan at 9:22 PM on 07/19/2019. Electronically signed by: Malcolm Millan MD 07/19/2019 9:23 PM CDT Due to temporary technical issues with the PACS/Fluency reporting system, reports are being signed by the in house radiologist as a courtesy to ensure prompt reporting. The interpreting radiologist is f ully responsible for the content of the report.
--- NOTE | 2019-07-20 11:21 | EKG ---
Test Date: 2019-07-19 Test Time: 20:59:29 [employer] Deposit Box Rental Clerk: RV MEASUREMENT RESULTS: Intervals: Rate: 87 DC: 222 QRSD: 122 QT: 396 QTc: 476 [place]: P: 52 DC: 222 QRS: 266 T: 62 INTERPRETIVE STATEMENTS: Sinus rhythm with 1st degree AV block Possible Left atrial enlargement Right superior axis deviation Inferior infarct, age undetermined Cannot rule out Anterior infarct, age undetermined Abnormal ECG Compared to ECG 05/10/2019 00:05:46 First degree AV block now present Right superior axis now present Sinus tachycardia no longer present Left-axis deviation no longer present Myocardial infarct finding still present Electronically Signed On 07-20-19 11:19:18 CDT by Torito Kraus
== END 2019-07-19 22:28 | disposition left against medical advice (07) ==
LOC: ER 20:04
DX: I63.432 Cerebral infarction due to embolism of left posterior cerebral artery (principal); I11.0 Hypertensive heart disease with heart failure; I50.9 Heart failure, unspecified; E11.9 Type 2 diabetes mellitus without complications; E78.5 Hyperlipidemia, unspecified; I25.2 Old myocardial infarction; I25.10 Atherosclerotic heart disease of native coronary artery without angina pectoris; F17.210 Nicotine dependence, cigarettes, uncomplicated; Z88.2 Allergy status to sulfonamides; Z88.8 Allergy status to other drugs, medicaments and biological substances; Z95.818 Presence of other cardiac implants and grafts
CPT/HCPCS: 36415; 70450; 71045; 80048; 82962; 85025; 85610; 85730; 93005; 99284

== ENCOUNTER 2020-01-02 03:21 | Inpatient (IN) | payer OTHER ==
--- OUTSIDE RECORDS SUMMARY | 2020-01-02 03:23 | XMS REPORT ---
:1965 Author Organization [facility] Address [address] [place] [address] Dr. Crisostomo [address] [place] [id number] Care Team Providers Name Role Phone Unavailable Unavailable Unavailable Problems This patient has no known problems. Allergies, Adverse Reactions, Alerts This patient has no known allergies or adverse reactions. Medications This patient has no known medications.
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
[2020-01-02] MEDS ORDERED: NITROGLYCERIN 1 GM PKT TD ONE (03:53)
[2020-01-02 03:58] LABS: Absolute Lymphocytes (CBC) 1.2 K/uL (0.7-4.9); Basophils % 0.9 % (0-1.3); Hematocrit 43.4 % (39.6-49.0); Lymphocytes % 10.4 % (15.3-44.8); MPV 9.2 fL (7.6-11.3); RBC Red Blood Cell Count 4.61 M/uL (4.33-5.43)
[2020-01-02 03:59] LABS: Protime INR 1.2
[2020-01-02 04:13] LABS: Albumin 3.5 g/dL (3.4-5.0); Bilirubin Direct 0.4 mg/dL (0-0.2); Bilirubin Total 1.1 mg/dL (0.2-1.0); Magnesium 1.5 mg/dL (1.8-2.4); Potassium 4.1 mmol/L (3.5-5.1); Troponin (Emerg Dept Use Only) 0.07 ng/mL (0.0-0.045)
[2020-01-02] MEDS ORDERED: MORPHINE 4 MG/ML SYR ONE (04:27)
[2020-01-02] MEDS ORDERED: ENOXAPARIN 100 MG/ML SYR SQ ONE (04:27)
[2020-01-02] MEDS ORDERED: ONDANSETRON 4 MG/2 ML VIAL ONE (04:27)
--- NOTE | 2020-01-02 05:59 | ER ---
Nurse's Notes [facility] Name: Nikos Corona Age: 54 yrs Sex: Male : 1965 Arrival Date: 01/02/2020 Time: 03:23 Bed 4 Private MD: Sami Alexander E Diagnosis: Angina pectoris, unspecified;ACUTE CORONARY SYNDROME Presentation: 01/02 03:30 Presenting complaint: Patient states: I am having trouble breathing started 2 weeks rr5 ago. last night around 730PM still with and my chest started to hurt going to my abdomen and neck. 03:30 Transition of care: patient was not received from another setting of care. Onset of rr5 symptoms was November 2019. Risk Assessment: Do you want to hurt yourself or someone else? Patient reports no desire to harm self or others. Initial Sepsis Screen: Does the patient meet any 2 criteria? RR > 20 per min. Yes Does the patient have a suspected source of infection? No. Patient's initial sepsis screen is negative. Note patient stated he is having fever, cough and colds. Care prior to arrival: Medication(s) given: cough medication. 03:30 Method Of Arrival: Wheelchair rr5 03:30 Acuity: YESI 3 rr5 Historical: - Allergies: 03:40 Rifampin; rr5 03:40 Sulfa (Sulfonamide Antibiotics); rr5 - Home Meds: 03:40 Ambien 10 mg Oral tab 1 tab once daily [Active]; atorvastatin Oral 1 tab once daily rr5 [Active]; Gabapentin 300 mg 3 tablets TID three times a day [Active]; clopidogrel 75 mg Oral tab 1 tab once daily [Active]; Glipizide Oral once daily [Active]; Isosorbide Mononitrate Oral [Active]; Lasiz 40 mg 0.5 tab DAILY (MORNING) [Active]; Lasix 40 mg 1 tab PO DAILY (EVENING) [Active]; Kdur 10 MEQ DAILY [Active]; mag oxide 40mg 1 tab PO BID [Active]; Coleman 10-325 mg Oral tab 1 tab every 6 hours [Active]; Omeprazole Oral [Active]; spironolactone 25 mg Oral tab 1 tab once daily [Active]; Venlafazine 50 mg 1 tab PO BID [Active]; - PMHx: 03:40 Anxiety; CAD; CHF; Diabetes - NIDDM; DVT; Hyperlipidemia; Hypertension; Myocardial rr5 infarction; neuropathy; osteomyelitis; PTSD; PVD; - PSHx: 03:40 Cholecystectomy; tibia and femur surgery; Heart stents; rr5 - Immunization history:: Adult Immunizations up to date. - Coronavirus screen:: The patient has NOT traveled to [place], [place], or [place] in the past 14 days. - Social history:: Smoking status: Patient reports the use of cigarette tobacco products, 3/4/pack, Patient/guardian denies using alcohol, street drugs. - Ebola Screening: : Patient negative for fever greater than or equal to 101.5 degrees Fahrenheit, and additional compatible Ebola Virus Disease symptoms Patient denies exposure to infectious person Patient denies travel to an Ebola-affected area in the 21 days before illness onset. Screenin:42 Abuse screen: Denies threats or abuse. Denies injuries from another. Nutritional rr5 screening: No deficits noted. Tuberculosis screening: No symptoms or risk factors identified. Fall Risk IV access (20 points). Total Baron Fall Scale indicates No Risk (0-24 pts). Assessment: 03:30 General: Appears uncomfortable, ill, mild distress. Behavior is calm, cooperative, rr5 appropriate for age, Reports fever for. 03:30 Pain: Complains of pain in chest Pain radiates to abdomen and neck Pain currently is 10 rr5 out of 10 on a pain scale. Quality of pain is described as aching, Pain began 1 day ago. Is. Neuro: Level of Consciousness is awake, alert, obeys commands, Oriented to person, place, time, situation, Appropriate for age. Cardiovascular: Reports chest pain, Capillary refill < 3 seconds Patient's skin is warm and dry. Pulses are all present. Edema. Respiratory: Reports shortness of breath cough that is air hunger Airway is patent Respiratory effort is even, unlabored, Respiratory pattern is regular, symmetrical. GI: Abdomen is round obese. : No signs and/or symptoms were reported regarding the genitourinary system. EENT: No signs and/or symptoms were reported regarding the EENT system. Derm: Skin is intact, is healthy with good turgor, Skin temperature is warm. Musculoskeletal: Circulation, motion, and sensation intact. Capillary refill < 3 seconds, Swelling present in right leg and left leg. 04:30 Reassessment: Patient appears in no apparent distress at this time. Patient is alert, rr5 oriented x 3, equal unlabored respirations, skin warm/dry/pink. pain free after morphine administration. Patient denies pain at this time. Patient states symptoms have improved. 05:20 Reassessment: Patient appears in no apparent distress at this time. Patient and/or rr5 family updated on plan of care and expected duration. Pain level reassessed. Patient is alert, oriented x 3, equal unlabored respirations, skin warm/dry/pink. resting eyes closed, breathing spontaneously. 06:00 Reassessment: Patient appears in no apparent distress at this time. Patient is alert, rr5 oriented x 3, equal unlabored respirations, skin warm/dry/pink. dr. barrios came and assess the patient. patient agreed for admission. 07:25 Reassessment: Patient appears in no apparent distress at this time. Patient and/or ph family updated on plan of care and expected duration. Pain level reassessed. Pt asleep w/ even, snoring respirations, noted to be moaning occasionally but does not awaken, VSS, awaiting room assignment. Vital Signs: 03:30 BP 139 / 104; Pulse 98; Resp 28; Temp 98.6; Pulse Ox 96% ; Weight 125.19 kg; Height 6 rr5 ft. 1 in. (185.42 cm); Pain 10/10; 04:04 BP 134 / 93; Pulse 98; Resp 22; Pulse Ox 95% on R/A; ea 04:38 BP 124 / 93; Pulse 94; Resp 21; Temp 99.7; Pulse Ox 97% on 2 lpm NC; Pain 0/10; rr5 05:30 BP 136 / 92; Pulse 100; Resp 20; Pulse Ox 95% on 3 lpm NC; rr5 06:25 BP 132 / 92; Pulse 96; Resp 19; Temp 98.5; Pulse Ox 96% on 3 lpm NC; rr5 07:26 BP 131 / 94; Pulse 97; Resp 22; Pulse Ox 96% on 3 lpm NC; ph 03:30 Body Mass Index 36.41 (125.19 kg, 185.42 cm) rr5 ED Course: 03:23 Patient arrived in ED. es 03:24 Sami Alexander MD is Private Physician. es 03:30 Jw Bowers MD is Attending Physician. tw4 03:32 Reid Elliott, BLANCA is Primary Nurse. rr5 03:36 Triage completed. rr5 03:42 Arm band placed on right wrist. rr5 03:42 Patient has correct armband on for positive identification. Placed in gown. Bed in low rr5 position. Call light in reach. Side rails up X2. harvest worker on. Pulse ox on. NIBP on. 03:49 Missed attempt(s): 20 gauge in right antecubital area. Bleeding controlled, band aid oe applied, catheter tip intact. 03:50 Inserted saline lock: 18 gauge in right antecubital area, using aseptic technique. rr5 04:05 Oxygen administration via nasal cannula \T\ 2L/min. ea 04:32 XRAY Chest (1 view) In Process Unspecified. EDMS 05:57 Mateo Barrios is Hospitalizing Provider. tw4 09:25 No provider procedures requiring assistance completed. Patient admitted, IV remains in ph place. Administered Medications: 03:55 Drug: Nitro-Bid Ointment 2 % 0.5 inches {Note: left chest wall.} Route: Transdermal; rr5 Site: anterior chest wall; 05:00 Follow up: Response: No adverse reaction; Pain is decreased rr5 04:20 Drug: Zofran 4 mg Route: IVP; Site: right antecubital; rr5 05:20 Follow up: Response: No adverse reaction rr5 04:22 Drug: morphine 4 mg {Note: rass 0.} Route: IVP; Site: right antecubital; rr5 05:00 Follow up: Response: No adverse reaction; Marked relief of symptoms; Pain is decreased; rr5 RASS: Alert and Calm (0) 04:37 Drug: Lovenox 1 mg/kg Route: Sub-Q; Site: right lower abdomen; rr5 05:30 Follow up: Response: No adverse reaction rr5 Outcome: 05:58 Decision to Hospitalize by Provider. tw4 09:27 Patient left the ED. ph 09:27 Admitted to Tele accompanied by tech, via wheelchair, with oxygen. ph 09:27 Condition: good 09:27 Instructed on the need for admit. Signatures: Dispatcher [employer] Kim Odell Patricia RN RN Jesus Alberto Correa Cristina, RN RN Jw Paul MD MD tw4 Reid Elliott RN RN rr5 Corrections: (The following items were deleted from the chart) 04:40 04:38 BP 124 / 93; Pulse 94bpm; Resp 26bpm; Pulse Ox 97% 2 lpm Nasal Cannula; Temp rr5 99.7F; Pain 0/10; rr5
--- NOTE | 2020-01-02 05:59 | EDPHYS ---
Physician Documentation [facility] Name: Nioks Corona Age: 54 yrs Sex: Male : 1965 Arrival Date: 01/02/2020 Time: 03:23 Bed 4 Private MD: Sami Alexander E ED Physician Jw Bowers HPI: 01/02 04:43 This 54 yrs old Male presents to ER via Wheelchair with complaints of Chest tw4 Pain, Breathing Difficulty. 04:43 The patient or guardian reports chest pain that is located primarily in the anterior tw4 chest wall. Onset: 2 week(s) ago. The pain does not radiate. Associated signs and symptoms: The patient has no apparent associated signs or symptoms. The chest pain is described as 2 week(s) ago, and became worse today, a pressure. Duration: The patient or guardian reports multiple episodes, that wax and wane. Severity of pain: At its worst the pain was moderate in the emergency department the pain is unchanged. The patient has experienced similar episodes in the past. Historical: - Allergies: 03:40 Rifampin; rr5 03:40 Sulfa (Sulfonamide Antibiotics); rr5 - Home Meds: 03:40 Ambien 10 mg Oral tab 1 tab once daily [Active]; atorvastatin Oral 1 tab once daily rr5 [Active]; Gabapentin 300 mg 3 tablets TID three times a day [Active]; clopidogrel 75 mg Oral tab 1 tab once daily [Active]; Glipizide Oral once daily [Active]; Isosorbide Mononitrate Oral [Active]; Lasiz 40 mg 0.5 tab DAILY (MORNING) [Active]; Lasix 40 mg 1 tab PO DAILY (EVENING) [Active]; Kdur 10 MEQ DAILY [Active]; mag oxide 40mg 1 tab PO BID [Active]; [place] 10-325 mg Oral tab 1 tab every 6 hours [Active]; Omeprazole Oral [Active]; spironolactone 25 mg Oral tab 1 tab once daily [Active]; Venlafazine 50 mg 1 tab PO BID [Active]; - PMHx: 03:40 Anxiety; CAD; CHF; Diabetes - NIDDM; DVT; Hyperlipidemia; Hypertension; Myocardial rr5 infarction; neuropathy; osteomyelitis; PTSD; PVD; - PSHx: 03:40 Cholecystectomy; tibia and femur surgery; Heart stents; rr5 - Immunization history:: Adult Immunizations up to date. - Coronavirus screen:: The patient has NOT traveled to [place], [place], or [place] in the past 14 days. - Social history:: Smoking status: Patient reports the use of cigarette tobacco products, 3/4/pack, Patient/guardian denies using alcohol, street drugs. - Ebola Screening: : Patient negative for fever greater than or equal to 101.5 degrees Fahrenheit, and additional compatible Ebola Virus Disease symptoms Patient denies exposure to infectious person Patient denies travel to an Ebola-affected area in the 21 days before illness onset. ROS: 04:43 Constitutional: Negative for fever, chills, and weight loss, Eyes: Negative for injury, tw4 pain, redness, and discharge, ENT: Negative for injury, pain, and discharge, Neck: Negative for injury, pain, and swelling, Respiratory: Negative for shortness of breath, cough, wheezing, and pleuritic chest pain, Abdomen/GI: Negative for abdominal pain, nausea, vomiting, diarrhea, and constipation, Back: Negative for injury and pain, MS/Extremity: Negative for injury and deformity, Skin: Negative for injury, rash, and discoloration, Neuro: Negative for headache, weakness, numbness, tingling, and seizure. 04:43 Cardiovascular: Positive for chest pain, Negative for edema, orthopnea, palpitations, paroxysmal nocturnal dyspnea. Exam: 04:43 Constitutional: This is a well developed, well nourished patient who is awake, alert, tw4 and in no acute distress. Head/Face: Normocephalic, atraumatic. Chest/axilla: Normal chest wall appearance and motion. Nontender with no deformity. No lesions are appreciated. Cardiovascular: Regular rate and rhythm with a normal S1 and S2. No gallops, murmurs, or rubs. Normal PMI, no JVD. No pulse deficits. Respiratory: Lungs have equal breath sounds bilaterally, clear to auscultation and percussion. No rales, rhonchi or wheezes noted. No increased work of breathing, no retractions or nasal flaring. Abdomen/GI: Soft, non-tender, with normal bowel sounds. No distension or tympany. No guarding or rebound. No evidence of tenderness throughout. Back: No spinal tenderness. No costovertebral tenderness. Full range of motion. MS/ Extremity: Pulses equal, no cyanosis. Neurovascular intact. Full, normal range of motion. Neuro: Awake and alert, GCS 15, oriented to person, place, time, and situation. Cranial nerves II-XII grossly intact. Motor strength 5/5 in all extremities. Sensory grossly intact. Cerebellar exam normal. Normal gait. Vital Signs: 03:30 BP 139 / 104; Pulse 98; Resp 28; Temp 98.6; Pulse Ox 96% ; Weight 125.19 kg; Height 6 rr5 ft. 1 in. (185.42 cm); Pain 10/10; 04:04 BP 134 / 93; Pulse 98; Resp 22; Pulse Ox 95% on R/A; ea 04:38 BP 124 / 93; Pulse 94; Resp 21; Temp 99.7; Pulse Ox 97% on 2 lpm NC; Pain 0/10; rr5 05:30 BP 136 / 92; Pulse 100; Resp 20; Pulse Ox 95% on 3 lpm NC; rr5 06:25 BP 132 / 92; Pulse 96; Resp 19; Temp 98.5; Pulse Ox 96% on 3 lpm NC; rr5 07:26 BP 131 / 94; Pulse 97; Resp 22; Pulse Ox 96% on 3 lpm NC; ph 03:30 Body Mass Index 36.41 (125.19 kg, 185.42 cm) rr5 MDM: 03:30 Patient medically screened. tw4 04:43 Data reviewed: vital signs, nurses notes. tw4 01/02 03:38 Order name: Basic Metabolic Panel 01/02 03:38 Order name: CBC with Diff; Complete Time: 05:55 01/02 03:38 Order name: LFT's 01/02 03:38 Order name: Magnesium ea 01/02 03:38 Order name: NT PRO-BNP 01/02 03:38 Order name: PT-INR; Complete Time: 05:55 01/02 03:38 Order name: Troponin (emerg Dept Use Only) 01/02 03:38 Order name: XRAY Chest (1 view) 01/02 03:38 Order name: EKG; Complete Time: 03:39 01/02 03:38 Order name: Cardiac monitoring; Complete Time: 03:41 01/02 03:38 Order name: EKG - Nurse/Tech; Complete Time: 03:41 ea 01/02 03:38 Order name: IV Saline Lock; Complete Time: 03:50 ea 01/02 03:38 Order name: Labs collected and sent; Complete Time: 03:50 ea 01/02 03:38 Order name: O2 Per Protocol; Complete Time: 03:41 ea 01/02 03:38 Order name: O2 Sat Monitoring; Complete Time: 03:41 ea EC:43 Rate is 99 beats/min. Rhythm is regular. QRS [place] is Normal. [place] interval is normal. QRS tw4 interval is normal. QT interval is normal. No Q waves. T waves are Inverted in leads aVL, aVF. No ST changes noted. Clinical impression: NSR w/ Non-specific ST/T Changes and 1st degree heart block. Interpreted by me. Reviewed by me. Administered Medications: 03:55 Drug: Nitro-Bid Ointment 2 % 0.5 inches {Note: left chest wall.} Route: Transdermal; rr5 Site: anterior chest wall; 05:00 Follow up: Response: No adverse reaction; Pain is decreased rr5 04:20 Drug: Zofran 4 mg Route: IVP; Site: right antecubital; rr5 05:20 Follow up: Response: No adverse reaction rr5 04:22 Drug: morphine 4 mg {Note: rass 0.} Route: IVP; Site: right antecubital; rr5 05:00 Follow up: Response: No adverse reaction; Marked relief of symptoms; Pain is decreased; rr5 RASS: Alert and Calm (0) 04:37 Drug: Lovenox 1 mg/kg Route: Sub-Q; Site: right lower abdomen; rr5 05:30 Follow up: Response: No adverse reaction rr5 Disposition: 01/02/20 05:58 Hospitalization ordered by Mateo Barrios for Inpatient Admission. Preliminary diagnosis are Angina pectoris, unspecified, ACUTE CORONARY SYNDROME. - Bed requested for Telemetry/MedSurg (Inpatient). - Status is Inpatient Admission. ph - Condition is Stable. - Problem is an ongoing problem. - Symptoms have improved. Signatures: Dispatcher [employer] EDMS Madie Durán RN RN Carol Carias RN RN Cristina Soto RN RN ea Wadley, Terrence, MD MD tw4 Elliott, Reid, RN RN rr5 Corrections: (The following items were deleted from the chart) 07:59 05:58 Hospitalization Ordered by Mateo Barrios for Inpatient Admission. Preliminary ss diagnosis is Angina pectoris, unspecified; ACUTE CORONARY SYNDROME. Bed requested for Telemetry/MedSurg (Inpatient). Status is Inpatient Admission. Condition is Stable. Problem is an ongoing problem. Symptoms have improved. tw4 09:27 07:59 01/02/2020 05:58 Hospitalization Ordered by Mateo Barrios for Inpatient ph Admission. Preliminary diagnosis is Angina pectoris, unspecified; ACUTE CORONARY SYNDROME. Bed requested for Telemetry/MedSurg (Inpatient). Status is Inpatient Admission. Condition is Stable. Problem is an ongoing problem. Symptoms have improved. ss
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
[2020-01-02] MEDS: IPRATROPIUM BROM 0.5MG/2.5ML NEB SCH ×4 (09:19→19:26)
[2020-01-02] MEDS ORDERED: FUROSEMIDE 40 MG/4 ML VIAL IV SCH ×2 (09:19→17:00)
[2020-01-02] MEDS ORDERED: MAGNESIUM SULFATE 1 gm IVPB 1 GM/100 ML BAG IV ONE ×5 (09:27→15:05)
[2020-01-02] MEDS: INSULIN -REGULAR HUMAN 50 UNIT/0.5 ML ML SQ SCH ×4 (09:45→20:16)
[2020-01-02] MEDS: ASPIRIN EC 81 MG TAB PO SCH (09:50)
[2020-01-02] MEDS: ONDANSETRON 4 MG/2 ML VIAL IV PRN (09:50)
[2020-01-02] MEDS: CLOPIDOGREL 75 MG TABLET PO SCH (09:51)
--- NOTE | 2020-01-02 10:25 | P.PN ---
doing wlel , still mild dysneic , feels beter -will add low dose 02 - c/w lasix diuretics -follow daily wetravishts
[2020-01-02] MEDS ORDERED: FUROSEMIDE 40 MG/4 ML VIAL IV ONE (10:34)
[2020-01-02] MEDS ORDERED: MORPHINE 2 MG/ML SYR IV ONE (10:56)
--- NOTE | 2020-01-02 11:05 | RAD REPORT ---
EXAM DESCRIPTION: RAD - Chest Single View - 01/02/2020 4:05 am CLINICAL HISTORY: CHEST PAIN Chest pain. COMPARISON: Chest Single View dated 07/20/2019; Chest Single View dated 07/19/2019; Chest Single View dated 05/10/2019; Chest Single View dated 04/30/2019 FINDINGS: Portable technique limits examination quality. Mild to moderate pulmonary edema is seen. The heart is moderately enlarged in size with a dual lead p acer/ defibrillator device. No displaced fractures. IMPRESSION: Mild to moderate CHF.
[2020-01-02] MEDS ORDERED: D50W 25 GM/50 ML SYRINGE/VIAL IV PRN (11:55)
[2020-01-02] MEDS ORDERED: GLUCAGON 1 MG/VIAL IM PRN (11:55)
[2020-01-02] MEDS: INSULIN GLARGINE 100 UNITS/ML SQ SCH ×2 (12:26→20:16)
--- NOTE | 2020-01-02 14:03 | RAD REPORT ---
EXAM DESCRIPTION: RAD - Chest Single View - 01/02/2020 1:36 pm CLINICAL HISTORY: shortness of breath Chest pain. COMPARISON: Chest Single View dated 01/02/2020; Chest Single View dated 07/20/2019; Chest Single View d ated 07/19/2019; Chest Single View dated 05/10/2019 FINDINGS: Portable technique limits examination quality. Since 01/02/2020, moderate worsening in bilateral pulmonary opacities seen, greater on the right. The heart is moderately enlarged with a dual lead pacer/defibrillator device present. No displaced fract ures. IMPRESSION: Moderate worsening in lung aeration since comparative study.
[2020-01-02] MEDS: MORPHINE 2 MG/ML SYR IV PRN ×2 (14:40→23:22)
[2020-01-02] MEDS: FUROSEMIDE 100 MG in NA CHLORIDE 0.9% 90 ML IV SCH ×2 (15:20→20:15)
--- NOTE | 2020-01-02 16:09 | CON ---
Chief Complaint: Dyspnea. Reason For Cardiology Consult: Congestive heart failure. History Of Present Illness: Mr. Corona is 54. He has had several stent procedures, following an MRI. His last one was last April, following an episode of congestive heart failure exacerbation. He has a defibrillator and probably at least 3 different stents in his LAD coronary artery. His ejection fr action is in the 30s and he takes medication regimen at home that we were not entirely sure of, but w urban think he is on isosorbide mononitrate, carvedilol, atorvastatin, Plavix, aspirin, and losartan. Th ere may be some other medicines including Effexor. Allergies: HE IS ALLERGIC TO RIFAMPIN AND SULFA. Social History: He is a cigarette smoker, still has not managed to quit. Heavy alcohol use is also present. Physical Examination: General: He is obese, alert, pleasant, 6 feet 1 inches tall, 276 pounds. It is a stated weight. He refused to be weighed. He has plethoric facies, mild periorbital edema. Pulmonary: Crackles, elevated jugular vein pressure. Does not have shifting dullness. Extremities: Revealed 3 to 4+ pitting edema. Distal pulses diminished, but palpable. Electrocardiogram shows sinus rhythm, evidence of an old infarct. The EKG from very recent is actually not here. He also has an intraventricular conduction delay. His chest x-ray shows pulmonary edema. Impression: The patient is volume overloaded. Plan: We will need to give him much more diuretic than he has had. His troponins are mildly elevate d. I think it is a good time for Mr. Corona to undergo a pharmacologic nuclear stress test and echo b oth tomorrow. GERONIMO/GERHARD Voice ID: [id number] Report ID: [id number]
[2020-01-02] MEDS: carvediloL 25 MG TAB PO SCH (17:30)
[2020-01-02] MEDS: ALBUTEROL 2.5 MG/3 ML NEB SOL NEB PRN (20:38)
[2020-01-03] MEDS: IPRATROPIUM BROM 0.5MG/2.5ML NEB SCH ×5 (00:25→20:30)
[2020-01-03] MEDS: FUROSEMIDE 100 MG in NA CHLORIDE 0.9% 90 ML IV SCH (01:43)
[2020-01-03] MEDS: MORPHINE 2 MG/ML SYR IV PRN ×3 (03:15→16:04)
[2020-01-03 04:57] LABS: Basophils % 0.9 % (0-1.3); Hematocrit 41.3 % (39.6-49.0); Lymphocytes % 12.8 % (15.3-44.8); MPV 8.9 fL (7.6-11.3); RBC Red Blood Cell Count 4.41 M/uL (4.33-5.43)
[2020-01-03 05:19] LABS: Albumin 3.1 g/dL (3.4-5.0); Bilirubin Total 1.1 mg/dL (0.2-1.0); Magnesium 1.9 mg/dL (1.8-2.4); Phosphorus 4.7 mg/dL (2.5-4.9); Potassium 4.1 mmol/L (3.5-5.1); Protein, Total 6.2 g/dL (6.4-8.2)
[2020-01-03] MEDS: carvediloL 25 MG TAB PO SCH ×2 (06:00→17:02)
[2020-01-03] MEDS: ONDANSETRON 4 MG/2 ML VIAL IV PRN (06:49)
[2020-01-03] MEDS: INSULIN -REGULAR HUMAN 50 UNIT/0.5 ML ML SQ SCH ×4 (07:30→21:59)
[2020-01-03] MEDS ORDERED: REGADENOSON 0.4 MG/5 ML SYR IV ONE (07:57)
[2020-01-03] MEDS ORDERED: FUROSEMIDE 100 MG in NA CHLORIDE 0.9% 90 ML IV SCH (08:00)
[2020-01-03] MEDS: ASPIRIN EC 81 MG TAB PO SCH (09:15)
[2020-01-03] MEDS: CLOPIDOGREL 75 MG TABLET PO SCH (09:15)
[2020-01-03] MEDS: LOSARTAN POTASSIUM 50 MG TABLET PO SCH (09:15)
[2020-01-03] MEDS: ENOXAPARIN 40 MG/0.4 ML SQ SCH (09:15)
--- NOTE | 2020-01-03 09:21 | EKG ---
Test Date: 2020-01-02 Test Time: 03:26:42 Quality Eng: TILA MEASUREMENT RESULTS: Intervals: Rate: 99 NE: 226 QRSD: 118 QT: 366 QTc: 469 [place]: P: 78 NE: 226 QRS: 216 T: 43 INTERPRETIVE STATEMENTS: Sinus rhythm with 1st degree AV block Possible Left atrial enlargement Low voltage QRS Inferior infarct, age undetermined Anterolateral infarct, age undetermined Intraventricular conduction delay Abnormal ECG Compared to ECG 07/20/2019 13:58:32 Low QRS voltage now present Electronically Signed On 01-03-20 09:20:56 O AND M SUPERVISOR by Ankit Veloz
[2020-01-03] MEDS: INSULIN GLARGINE 100 UNITS/ML SQ SCH ×2 (09:29→22:00)
[2020-01-03] MEDS: ALBUTEROL 2.5 MG/3 ML NEB SOL NEB PRN ×2 (09:45→20:30)
--- NOTE | 2020-01-03 09:49 | RAD REPORT ---
EXAM DESCRIPTION: US - Liver Only - 01/03/2020 9:00 am CLINICAL HISTORY: Abnormal liver function test enzymes COMPARISON: None FINDINGS: The liver has a normal echotexture. Hepatopetal flow. 2.2 centimeter echogenic lesion righ t lobe. The spleen measures 11 centimeters. Normal echotexture IMPRESSION: 2.2 centimeter echogenic lesion right lobe liver probably hemangioma. A follow-up ultrasound 3 month s recommended for re-evaluation Unremarkable ultrasound spleen
--- NOTE | 2020-01-03 09:49 | TREADPHA ---
DX: CONGESTIVE HEART FAILURE Date of Study: 01/03/2020 Ht: 6 1 Wt: 275 lb 3 oz Consulting Physician: NATALY MEDICATIONS: ASPIRIN, PLAVIX, COREG, LOVENOX, NOVOLIN-R, LANTUS, COZAAR HISTORY: 54 YEAR OLD MALE WITH HISTORY OF INSULIN DEPENDENT DIABETES MELLITUS, HYPERTENSION, NEUROPATHY, HIGH CHOLESTEROL, DEFIBRILLATOR, CURRENT SMOKER. ADMITTED FOR CHEST PAIN, CONGESTIVE HEART FAILURE. DENIED CHEST PAIN AT TIME OF TESTING. PHYSICIAL EXAMINATION: RESTING B.P.: 104/78 RESTING H.R.: 81 RESTING EKG: SINUS, RIGHT BUNDLE BRANCH BLOCK, LEFT AXIS DEVIATION, ANTEROLATERAL MYOCARDIAL INFARCTION. PROTOCOL: LEXISCAN EXERCISE TIME: 3:30 B.P. AT PEAK STRESS: 98/64 IMPRESSION: LEXISCAN STRESS TEST PERFORMED. CARDIOLITE INJECTED PER PROTOCOL. NO SUPRAVENTRICULAR TACHYCARDIA, VENTRICULAR TACHYCARDIA OR ARRYTHMIAS NOTED. PATIENT DENIED CHEST PAIN. BLOOD PRESSURE 102/70. SEE NUCLEAR MEDICINE REPORT. NON DIAGNOSTIC EKG WITH LEXISCAN STRESS TEST.
--- NOTE | 2020-01-03 09:54 | P.PN ---
Subjective Date of Service: 01/03/20 Chief Complaint: Chest pain and shortness of breath Subjective: No new changes (Patient continues to experience SOB. No new complaint) Review of Systems General: Unremarkable Eyes: Unremarkable Respiratory: Cough, Dry, Shortness of Breath, SOB with Excertion Cardiovascular: Chest Pain, Edema Gastrointestinal: Unremarkable Genitourinary: Unremarkable Integumentary: Unremarkable Neurological: Unremarkable Physical Examination - Vital Signs Temperature: 98.7 F Blood Pressure: 110/75 Pulse: 79 Respirations: 23 Pulse Ox (%): 95 - Physical Exam General: Alert, Oriented x3 HEENT: Atraumatic, Normocephalic Neck: Supple, No LAD Respiratory: Expiratory wheezes, Rhonchi/gurgles Cardiovascular: Regular rate/rhythm, Normal S1 S2 Gastrointestinal: Normal bowel sounds, Soft and benign, No masses, No rebound, No guarding Musculoskeletal: No clubbing, No erythema, No tenderness, Swelling Neurological: Normal reflexes 2+, Normal affect - Studies Laboratory Data (last 24 hrs) 01/03/20 04:32: Sodium 132 L, Potassium 4.1, BUN 31 H, Creatinine 1.45 H, Glucose 108 H, Phosphorus 4.7, Magnesium 1.9, Total Bilirubin 1.1 H, AST 301 H* D, ALT 139 H, Alkaline Phosphatase 105 D 01/03/20 04:32: WBC 8.2 D, Hgb 14.1, Hct 41.3, Plt Count 182 01/02/20 15:30: Potassium 4.0 01/02/20 14:20: Troponin I 0.08 H 01/02/20 11:18: Magnesium 1.8 01/02/20 10:10: Troponin I 0.07 H Assessment And Plan - Plan Assessment and plans 1. Acute respiratory failure: Likely secondary to CHF exacerbation versus COPD exacerbation. Started IV Lasix. I started DuoNeb q.4. On [place] oxygen. 2. CHF exacerbation: his ejection fraction laws 30-35% seen aspirin. Echo was ordered. Status post IV Lasix gtt. Started IV Lasix 40 mg q.8 hr. General Practitioner was consulted. Continue beta-edyta and losartan. 3. COPD exacerbation. Patient has a history of tobacco abuse for 40 years. His breath sound is decreased. Likely he is suffering from undiagnosed COPD. Started DuoNeb nebulization. 4. LFT elevation: Likely this is due to CHF worsening. Will monitor. 5. DM2: Continue current insulin regimen and sliding scale. A1c in the morning 6. HTN: On BB and Losartan Discharge Plan: Home Plan to discharge in: Unknown - Code Status/Comfort Care Code Status Assessed: Yes Code Status: Full Code
--- NOTE | 2020-01-03 09:56 | RAD REPORT ---
EXAM DESCRIPTION: NM - Rest Stress Cardiac Imaging - 01/03/2020 9:17 am CLINICAL HISTORY: Chest pain. COMPARISON: None. TECHNIQUE: The patient was administered approximately 10.7 mCi of Tc 99m Sestamibi prior to resting SPECT imaging of the heart. The patient was then administered approximately 32.3 mCi of Tc 99m Sestam ibi following exercise or pharmacologic stress. Multiplanar SPECT images were reviewed. FINDINGS: Large, severe area of diminished radiotracer uptake involves the inferior apical left selvin tricular myocardium on rest and stress images. Moderate area of diminished radiotracer uptake involves the lateral left ventricular myocardium on st ress images. This demonstrates partial reaccumulation of radiotracer on rest images. Small area of diminished radiotracer uptake within the anterior left ventricular myocardium demonstra tristan partial reaccumulation of radiotracer on rest images The left ventricular ejection fraction equals 15% Left ventricle is dilated IMPRESSION: Large fixed perfusion defect involving the inferior apical left ventricular myocardium c onsistent with infarction Partially reversible perfusion defects involving the lateral and anterior left ventricle myocardium m ay indicate infarction with bowen-infarct ischemia
[2020-01-03] MEDS ORDERED: MORPHINE 2 MG/ML SYR IV PRN (10:00)
--- NOTE | 2020-01-03 10:56 | RAD REPORT ---
EXAM DESCRIPTION: Kam Single View01/03/2020 10:49 am CLINICAL HISTORY: Shortness of breath COMPARISON: January 02 FINDINGS: Mild improvement in a right and no significant change in left pulmonary opacities consiste nt pulmonary edema. Heart remains enlarged. Pacemaker leads in place
--- NOTE | 2020-01-03 11:30 | ECHO ---
HEIGHT: 6 ft 1 in WEIGHT: 275 lb 3 oz DATE OF STUDY: 01/03/[address]: huan scanlon 2-DIMENSIONAL: YES M.MODE: YES DOPPLER: YES COLOR FLOW: YES TDS: NO PORTABLE: YES DEFINITY: NO BUBBLE STUDY: NO DIAGNOSIS: CONGESTIVE HEART FAILURE CARDIAC HISTORY: CATHERIZATION: YES SURGERY: NO PROSTHETIC VALVE: NO PACEMAKER: YES MEASUREMENTS (cm) DIASTOLIC (NORMALS) SYSTOLIC (NORMALS) IVSd 1.1 (0.6-1.2) LA Diam 5.0 (1.9-4.0) LVEF 27% LVIDd 6.6 (3.5-5.7) LVIDs 5.7 (2.0-3.5) %FS 13% LVPWd 1.2 (0.6-1.2) Ao Diam 3.4 (2.0-3.7) 2 DIMENSIONAL ASSESSMENT: RIGHT ATRIUM: DILATED LEFT ATRIUM: DILATED RIGHT VENTRICLE: PACEMAKER CATHETER IN RIGHT VENTRICULAR APEX, DILATED LEFT VENTRICLE: DILATED TRICUSPID VALVE: NORMAL MITRAL VALVE: NORMAL PULMONIC VALVE: NORMAL AORTIC VALVE: NORMAL PERICARDIAL EFFUSION: NONE AORTIC ROOT: NORMAL LEFT VENTRICULAR WALL MOTION: APICAL, ANTERIOR AKINESIS. HYPOKINESIS ELSEWHERE. DOPPLER/COLOR FLOW: MILD MITRAL AND TRICUSPID REGURGITATION. ESTIMATED RIGHT VENTRICULAR SYSTOLIC PRESSURE 45mmHg (MILD PULMONARY HYPERTENSION). COMMENTS: FOUR CHAMBER DILATATION. SEVERE DEPRESSED LEFT VENTRICULAR EJECTION FRACTION WITH WALL MOTION ABNORMALITY. PACER IN RIGHT VENTRICLE. MILD MITRAL AND TRICUSPID REGURGITATION. MILD PULMONARY HYPERTENSION. TECHNOLOGIST: DAKOTA MIKE
[2020-01-03] MEDS ORDERED: ALBUTEROL 2.5 MG/3 ML NEB SOL NEB SCH (12:00)
[2020-01-03] MEDS ORDERED: IPRATROPIUM BROM 0.5MG/2.5ML NEB SCH (12:00)
--- NOTE | 2020-01-03 12:13 | PN ---
Nikos Corona is a 54-year-old man. Mr. Corona is going to have an echo and nuclear stress te st today. He was transferred to the ICU so he could have a Lasix drip. His lungs today sound very c lear. He has had a chest x-ray yesterday at about 1 p.m. that showed about the same thing from the o ne 7 hours earlier and x-ray this morning has not yet been done, but his lungs are perfectly clear. He is still dyspneic. He has some disturbing laboratory changes. His SGOT and SGPT have both gone u p since he has been here. His sodium has come down. So, he has lost a lot of body fluid, still has 2 to 3+ pitting edema on his legs, but his lungs are much clearer. I think we have something more th an a pulmonary edema going on. We will see what our other studies show us. GERONIMO/GERHARD Voice ID: [id number] Report ID: [id number]
[2020-01-03] MEDS: ARFORMOTEROL TARTRATE 15 MCG/2 ML VIAL.NEB NEB SCH ×2 (12:37→20:30)
[2020-01-03] MEDS ORDERED: ALBUTEROL 2.5 MG/3 ML NEB SOL NEB PRN (12:38)
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
[2020-01-03 14:02] LABS: Arterial Blood Carboxyhemoglob 2.1 % (0-1.5); Blood Gas Oxyhemoglobin 92.8 % (94-97); Blood O2 Saturation 95.5 % (92-98.5)
[2020-01-03] MEDS: FUROSEMIDE 40 MG/4 ML VIAL IV SCH (17:02)
[2020-01-04] MEDS: FUROSEMIDE 40 MG/4 ML VIAL IV SCH (01:00)
[2020-01-04] MEDS: IPRATROPIUM BROM 0.5MG/2.5ML NEB SCH ×4 (01:55→19:35)
[2020-01-04] MEDS: MORPHINE 2 MG/ML SYR IV PRN ×3 (04:26→18:40)
[2020-01-04 05:33] LABS: Basophils % 0.6 % (0-1.3); Hematocrit 41.2 % (39.6-49.0); Lymphocytes % 12.2 % (15.3-44.8); MPV 9.2 fL (7.6-11.3); RBC Red Blood Cell Count 4.33 M/uL (4.33-5.43)
[2020-01-04 05:50] LABS: Albumin 2.8 g/dL (3.4-5.0); Bilirubin Total 0.7 mg/dL (0.2-1.0); Phosphorus 4.3 mg/dL (2.5-4.9); Potassium 3.5 mmol/L (3.5-5.1); Protein, Total 5.9 g/dL (6.4-8.2)
[2020-01-04] MEDS: carvediloL 25 MG TAB PO SCH (06:00)
[2020-01-04] MEDS: INSULIN -REGULAR HUMAN 50 UNIT/0.5 ML ML SQ SCH ×4 (07:30→20:47)
--- NOTE | 2020-01-04 08:22 | P.PN ---
Subjective Date of Service: 01/04/20 Chief Complaint: Shortness of breath No change patient is not complaining of abdominal discomfort Review of Systems General: Weakness Respiratory: Shortness of Breath Gastrointestinal: Abdominal Pain Physical Examination - Vital Signs Temperature: 98.5 F Blood Pressure: 82/64 Pulse: 79 Respirations: 19 Pulse Ox (%): 93 - Physical Exam General: Alert, Oriented x3, Mild distress Respiratory: Clear to auscultation bilaterally, Diminished Cardiovascular: Normal S1 S2, Edema Gastrointestinal: Normal bowel sounds, Tenderness (Tenderness mostly in the upper quadrant on the right side of the of the) Assessment & Plan - Problems (Diagnosis) (1) Acute on chronic systolic CHF (congestive heart failure) Current Visit: No Status: Acute Plan: Patient's blood pressure is low reduce Lasix to once a day at low-dose spironolactone patient to have a cardiac catheterization creatinine is a little elevated patient has a history of obstructive sleep apnea trial of BiPAP year outpatient sleep study liver enzymes have risen again today
[2020-01-04] MEDS: ARFORMOTEROL TARTRATE 15 MCG/2 ML VIAL.NEB NEB SCH ×2 (08:50→19:35)
[2020-01-04] MEDS ORDERED: FUROSEMIDE 40 MG/4 ML VIAL IV SCH ×2 (09:00)
[2020-01-04] MEDS: SPIRONOLACTONE 25 MG TABLET PO SCH ×2 (09:00→20:46)
[2020-01-04] MEDS: LOSARTAN POTASSIUM 50 MG TABLET PO SCH (09:00)
[2020-01-04] MEDS: PANTOPRAZOLE 40MG TABLET PO SCH (09:52)
[2020-01-04] MEDS: ENOXAPARIN 40 MG/0.4 ML SQ SCH (09:52)
[2020-01-04] MEDS: INSULIN GLARGINE 100 UNITS/ML SQ SCH ×2 (09:52→20:47)
[2020-01-04] MEDS: CLOPIDOGREL 75 MG TABLET PO SCH (09:52)
[2020-01-04] MEDS: ASPIRIN EC 81 MG TAB PO SCH (09:52)
[2020-01-04] MEDS ORDERED: KETOROLAC 30 MG/ML INJ IV PRN (11:15)
[2020-01-04] MEDS ORDERED: ALBUMIN HUMAN 25% 100 ML IV ONE ×2 (11:15→11:30)
--- NOTE | 2020-01-04 14:14 | P.PN ---
Subjective Date of Service: 01/04/20 Chief Complaint: Shortness of breath Pt continues to experience pain. His BP was low. Review of Systems General: Weakness Eyes: Unremarkable ENT: Unremarkable Respiratory: Cough, Shortness of Breath Cardiovascular: Edema Gastrointestinal: Distention Genitourinary: Unremarkable Musculoskeletal: Back Pain Integumentary: Unremarkable Neurological: Unremarkable Physical Examination - Vital Signs Temperature: 98.5 F Blood Pressure: 80/59 Pulse: 66 Respirations: 24 Pulse Ox (%): 94 - Physical Exam General: Alert, Oriented x3, Cooperative, Mild distress HEENT: Atraumatic, Normocephalic, PERRLA, EOMI Neck: Supple, JVD distended Respiratory: Diminished Cardiovascular: Normal pulses, Regular rate/rhythm, Other (pacemaker) Musculoskeletal: No clubbing, No swelling Neurological: Normal speech, Normal strength at 5/5 x4 extr Assessment And Plan - Plan Assessment and plans 1. Acute respiratory failure: Likely secondary to CHF exacerbation. Started IV Lasix. This is stable. However, he cannot tolerate high dose of lasix due to hypotension. 2. Hypotension: Likely due to severe systolic CHF. Will hold BP temporarily if SBP < 90. 3. Systolic CHF exacerbation: his ejection fraction is 27% with four chamber dilation. Stress test demonstrated large infusion defection. Continue Lasix, beta-edyta, losartan as tolerated. Prepress Proofer has been following this patient. 4. Myocardial infarction/CAD. Nuclear stress test demonstrated a large perfusion defect suggesting myocardial infarction. Prepress Proofer planned a full cardiac cath tomorrow morning. 5. Acute renal insufficiency. Cr 1.42. This is secondary to diuresis. Will follow up. 6. LFT elevation: Worsening. This is likely this is due to CHF worsening. Liver ultrasound demonstrated hemangioma. I do not think hemangioma will contribute to elevated LFT. 7. DM2: Continue current insulin regimen and sliding scale. A1c in the morning 8. HTN: Normal his broad pressure is at lower side 9. Chronic back pain. Patient requested pain medications but his BP is at lower side. I added IV Toradol for pain control. Overall his prognosis is guarded. I tried to call his family but his nephew did not answer the phone. Plan to discharge in: Unknown
[2020-01-04] MEDS: carvediloL 12.5 MG TAB PO SCH (18:39)
[2020-01-04] MEDS: ALBUMIN HUMAN 25% 100 ML IV SCH (20:45)
[2020-01-04] MEDS: HYDROCODONE/APAP 5/325 MG TAB PO PRN (20:46)
[2020-01-04] MEDS: ONDANSETRON 4 MG/2 ML VIAL IV PRN (21:14)
[2020-01-05] MEDS: IPRATROPIUM BROM 0.5MG/2.5ML NEB SCH ×4 (02:00→20:00)
[2020-01-05] MEDS: HYDROCODONE/APAP 5/325 MG TAB PO PRN (04:14)
[2020-01-05 05:00] LABS: Magnesium 2.1 mg/dL (1.8-2.4); Phosphorus 3.4 mg/dL (2.5-4.9); Potassium 3.6 mmol/L (3.5-5.1)
[2020-01-05] MEDS: carvediloL 12.5 MG TAB PO SCH (05:37)
[2020-01-05] MEDS: PANTOPRAZOLE 40MG TABLET PO SCH (07:02)
[2020-01-05] MEDS: INSULIN -REGULAR HUMAN 50 UNIT/0.5 ML ML SQ SCH ×4 (07:30→20:34)
[2020-01-05] MEDS: ARFORMOTEROL TARTRATE 15 MCG/2 ML VIAL.NEB NEB SCH ×2 (07:50→20:00)
[2020-01-05] MEDS ORDERED: POTASSIUM 25 MEQ EFFERV TAB PO ONE (08:00)
[2020-01-05 08:14] LABS: Albumin 3.3 g/dL (3.4-5.0); Bilirubin Direct 0.7 mg/dL (0-0.2); Bilirubin Total 1.3 mg/dL (0.2-1.0); Potassium 3.6 mmol/L (3.5-5.1); Protein, Total 6.4 g/dL (6.4-8.2)
[2020-01-05] MEDS: METHYLPREDNISOLONE 40 MG INJ IV SCH ×2 (09:00→17:21)
[2020-01-05] MEDS: LOSARTAN POTASSIUM 50 MG TABLET PO SCH (09:00)
[2020-01-05] MEDS: ENOXAPARIN 40 MG/0.4 ML SQ SCH (09:00)
[2020-01-05] MEDS: ALBUMIN HUMAN 25% 100 ML IV SCH ×2 (09:00→09:02)
[2020-01-05] MEDS ORDERED: FUROSEMIDE 40 MG/4 ML VIAL IV SCH (09:00)
[2020-01-05] MEDS: CLOPIDOGREL 75 MG TABLET PO SCH (09:01)
[2020-01-05] MEDS: SPIRONOLACTONE 25 MG TABLET PO SCH ×2 (09:01→20:33)
[2020-01-05] MEDS: ASPIRIN EC 81 MG TAB PO SCH (09:01)
[2020-01-05] MEDS: MORPHINE 2 MG/ML SYR IV PRN ×3 (09:01→16:07)
[2020-01-05] MEDS: INSULIN GLARGINE 100 UNITS/ML SQ SCH ×2 (09:01→20:34)
[2020-01-05] MEDS ORDERED: POTASSIUM CL SA 10 MEQ TAB PO ONE (10:31)
[2020-01-05] MEDS: FUROSEMIDE 100 MG in NA CHLORIDE 0.9% 90 ML IV SCH ×2 (12:30→21:41)
--- NOTE | 2020-01-05 13:18 | PN ---
Mr. Corona does not seem to be in pulmonary edema anymore, but he has severe abnormalities of liver fu nction. I do not know what is behind that. His BUN and creatinine are getting a little bit worse an d his lungs sound terrible. So, he is not even close to a good candidate for undergoing a cardiac ca th. He is not having chest pain. His troponins were barely elevated and his nuclear medicine report indicates inferior arch infarction with bowen-infarct ischemia, so I think we are best to not do a ca rdiac cath at least immediately. Several things need to happen before he is ready to go through that . GERONIMO/GERHARD Voice ID: [id number] Report ID: [id number]
--- NOTE | 2020-01-05 13:48 | CON ---
Date of Consultation: 01/05/2020 Reason For Consultation: Fluid management and elevated BUN and creatinine. History Of Present Illness: This is a 54-year-old gentleman with significant past medical history of coronary artery disease complicated with congestive heart failure, ejection fraction on current admi ssion to 24%, use to be 40% last year, status post PTCA x5, status post ICD, peripheral vascular dise ase, hypertension, active smoker, chronic kidney disease. Patient was admitted to the hospital with shortness of breath. Upon admission, kidney function completely normal. Creatinine 1.1. GFR of 67. Patient was admitted on the with overvolume. Started on Lasix drip after 24 hours. Patient wa s switched to Lasix 80 b.i.d. Blood pressure started fluctuation. Patient had hyponatremia. For th at reason, we have been consulted. Kidney function gradually started deteriorating. Patient's possi ble plan for cardiac cath on Friday. Patient denied taking any nonsteroidal. No recent hospitalizat ion. No IV contrast. On the last 48 hours, patient's blood pressure systolic down to the 80. Patie nt still have good perfusion with good urine output, but still shortness of breath. Past Medical History: Include: 1.Hypertension. 2.Peripheral vascular disease. 3.Coronary artery disease complicated with congestive heart failure, ejection fraction of 24, status post PTCA and ICD. 4.Diabetes complicated with neuropathy. Social History: Active smoker. Denied drug use. Denied alcohol. Past Surgical History: Include ICD, PTCA, cholecystectomy, foot surgery, amputation of the 3rd toe. Family History: Positive for hypertension and diabetes. Review of Systems: Head and Neck: No red eye. No ear pain. GI: No nausea. No vomiting. : No polyuria. No dysuria. No hematuria. Electronic Warfare Technical: Not applicable. Respiratory: Has shortness of breath. Cardiovascular: Has orthopnea. Has leg swelling. Endocrine: No polydipsia. Skin: No rash. Neuro: Has neuropathy. Musculoskeletal: Generalized fatigue. Physical Examination: General: When I saw the patient, patient is lying in bed, shortness of breath. Vital Signs: Blood pressure of 84/71, pulse of 70, afebrile. Chest: Crackles, bilateral base. Heart: S1, S2. Systolic murmur. Abdomen: Soft, nontender. Extremities: Trace +1 edema. Neurologic: Alert, oriented, nonfocal. Laboratory Data: Upon admission, H and H 14.7/43.4, sodium 131, potassium 4.1, bicarb 25, BUN 20, cr eatinine 1.1, GFR of 67, glucose 400. Calcium 9.1. LFT within normal limit. BNP 5700. TSH 0.6. P revious lab data back in June, creatinine 0.9, GFR of 88, H and H 12.7/35.9. Current lab data, H a nd H 13.7/41.2, WBC 7.2, platelets of 183. Sodium 130, potassium 3.6, bicarb 26, BUN 48, creatinine 1.4, GFR of 53, calcium 8.3. AST and ALT elevated, alkaline phosphatase 131, albumin 3.3. ABG; pH 7 .4, CO2 of 41, O2 of 84, saturation 95. Urinalysis not done. Urine drug screen positive for opioid before. Current Medications: The patient on include: 1.Aspirin. 2.Albuterol. 3.Plavix. 4.Carvedilol. 5.Spironolactone. 6.Lasix 40 daily. 7.Pantoprazole. 8.Solu-Medrol. 9.Insulin. 10.Hydrocodone. Assessment And Plan: 1.Acute kidney injury, mostly secondary to cardiorenal over volume, poor perfusion, acute tubular ne crosis secondary to pump failure, proteinuric. 2.Given the marginal blood pressure, I am going to go ahead and discontinue losartan. Continue on t he diuresis, but switch him to Lasix drip to avoid any low blood pressure. Decrease carvedilol to 3. 125 and we will monitor the patient. I am going to go ahead and send for protein creatinine and we w ill follow up in case the patient is going to need cardiac cath. Patient will hold the Lasix 12 hour before and we will monitor. 3.Hypertension, currently hypotension in the presence of acute kidney injury. Discontinue losartan. We will utilize blood pressure for diuresis. Decrease carvedilol. Change Lasix to IV. Continue s pironolactone. 4.Hyponatremia, mostly secondary to congestive heart failure, dilutional. TSH within normal limit. We will send for cortisol. We will start diuresing the patient and we will follow up. 5.Hypokalemia secondary to pseudo hyperaldo/diuresis. Agree with the spironolactone. We will suppl ement and we will follow up. 6.Coronary artery disease, congestive heart failure, cardiogenic shock. Continue diuresis. We will follow up with Cardiology. If blood pressure continue to be low, patient may need cardiac cath as b y Cardiology. We will follow up. We will consider Milrinone or dobutamine depending on the Cardiolo gy preference if the blood pressure stays low. 7.Diabetes. Follow up with the primary. 8.Peripheral vascular disease as by primary. Case discussed with Dr. Tijerina, agreed on the plan. Discussed with the staff. Discussed with the jose ent who verbalized understanding. ROSS/GERHARD Voice ID: [id number] Report ID: [id number]
[2020-01-05 14:32] LABS: Urine Appearance CLEAR; Urine Bilirubin NEGATIVE (NEG); Urine Blood NEGATIVE (NEG); Urine Color DK YELLOW; Urine Glucose NEGATIVE (NEG); Urine Protein 1+ (NEG)
[2020-01-05 14:41] LABS: Urine Protein/Creatinine Ratio 0.34 ratio (<0.15)
[2020-01-05 14:54] LABS: Urine Microscopic Reflex ORDER UMIC
[2020-01-05 15:07] LABS: Urine Amorphous Sediment TRACE /HPF (NONE SEEN); Urine Bacteria <20 /HPF (NONE SEEN); Urine Culture Reflex Order NOT NEEDED; Urine Mucus 3+ /HPF (NONE SEEN); Urine RBC <5 /HPF (NONE SEEN)
--- NOTE | 2020-01-05 15:20 | P.PN ---
Subjective Date of Service: 01/05/20 Chief Complaint: Shortness of breath Subjective: No new changes, Tolerating diet Review of Systems General: Weakness Eyes: Unremarkable ENT: Unremarkable Respiratory: Shortness of Breath, Wheezing Cardiovascular: Unremarkable Gastrointestinal: Unremarkable Musculoskeletal: Back Pain Neurological: Unremarkable Physical Examination - Vital Signs Temperature: 98.0 F Blood Pressure: 108/76 Pulse: 75 Respirations: 20 Pulse Ox (%): 91 - Physical Exam General: Alert, Oriented x3, Cooperative, Mild distress HEENT: Atraumatic, Normocephalic, PERRLA, Mucous membr. moist/pink Neck: Supple, 2+ carotid pulse no bruit, JVD distended Respiratory: Diminished, Inspiratory wheezes (mild) Cardiovascular: Regular rate/rhythm, Normal S1 S2, Edema Gastrointestinal: Hypoactive, Soft and benign, No ascites, Distended Musculoskeletal: No clubbing, No swelling, Tenderness Integumentary: No rashes, No breakdown, No significant lesion Neurological: Normal gait, Normal strength at 5/5 x4 extr, Normal tone, Abnormal affect (anxiety) Assessment And Plan - Plan Assessment and plans: Pt is doing about same. His BP is more stable. His LFT is worsening. 1. Acute respiratory failure: Likely secondary to CHF exacerbation. He cannot tolerate IV lasix q8h and attending ambulatory care changed it to IV lasix drip. DC Lorsartan and decreased coreg dose to avoid hypotension. 2. Hypotension: Likely due to severe systolic CHF. Inspector Screen Printing changed IV Lasix to drpis. Discontinued losartan and decreased corrected to 3.125 mg b.i.d. now his blood pressure is stable. 3. Systolic CHF exacerbation: his ejection fraction is 27% with four chamber dilation. Stress test demonstrated large infusion defection. Continue Lasix, beta-edyta, spironolactone as tolerated. Geological Manager has been following this patient. 4. Myocardial infarction/CAD. Nuclear stress test demonstrated a large perfusion defect suggesting myocardial infarction. Geological Manager planned a full cardiac cath tomorrow morning. Continue Plavix 5. Acute renal insufficiency. Cr 1.42. This is secondary to diuresis and cardiorenal syndrome. We appreciated attending ambulatory care's input 6. LFT elevation: Continues to be worsening. This is likely this is due to live congestion 2/2 CHF. Liver ultrasound demonstrated hemangioma. I do not think hemangioma will contribute to elevated LFT. I hold aspirin and acetaminophen to avoid liver toxicity. Hepatitis panel was ordered. MRCP was ordered but will see if his defibrillator is compatible. Unfortunately there is no GI available at this moment. 7. DM2: Continue current insulin regimen and sliding scale. A1c in the morning 8. HTN: Now BP is stable 9. Chronic back pain. Patient requested pain medications but his BP is at lower side. On low dose morphine Plan to discharge in: Unknown
--- NOTE | 2020-01-05 15:44 | RAD REPORT ---
EXAM DESCRIPTION: US - Renal Ultrasound-Complete - 01/05/2020 3:28 pm CLINICAL HISTORY: OSMANY Flank pain COMPARISON: No comparisons FINDINGS: Both kidneys are normal in size, shape and echotexture. The right kidney measures 13.3 x 5.4 x 4.9 cm. No hydronephrosis, focal mass or perinephric fluid. The left kidney measures 12.2 x 5.8 x 5.2 cm. No hydronephrosis, focal mass or perinephric fluid. The urinary bladder is incompletely distended without gross abnormality seen. IMPRESSION: Unremarkable renal sonogram.
[2020-01-05 16:23] LABS: Bilirubin Total 0.8 mg/dL (0.2-1.0); Magnesium 2.1 mg/dL (1.8-2.4); Potassium 4.8 mmol/L (3.5-5.1); Protein, Total 5.9 g/dL (6.4-8.2)
[2020-01-05] MEDS: carvediloL 3.125 MG TAB PO SCH (17:20)
[2020-01-05] MEDS ORDERED: ZOLPIDEM TARTRATE 10 MG TABLET PO PRN (21:05)
[2020-01-06] MEDS: METHYLPREDNISOLONE 40 MG INJ IV SCH (00:14)
[2020-01-06] MEDS: IPRATROPIUM BROM 0.5MG/2.5ML NEB SCH ×4 (01:40→19:45)
[2020-01-06] MEDS: PANTOPRAZOLE 40MG TABLET PO SCH (05:38)
[2020-01-06] MEDS: carvediloL 3.125 MG TAB PO SCH ×2 (05:38→17:23)
[2020-01-06 05:44] VITALS: BMI 36.1
[2020-01-06 06:16] LABS: Absolute Lymphocytes (CBC) 0.9 K/uL (0.7-4.9); Basophils % 0.1 % (0-1.3); Hematocrit 41.7 % (39.6-49.0); Lymphocytes % 15.2 % (15.3-44.8); MPV 9.1 fL (7.6-11.3); RBC Red Blood Cell Count 4.48 M/uL (4.33-5.43)
[2020-01-06 06:44] LABS: Phosphorus 3.5 mg/dL (2.5-4.9); Potassium 3.8 mmol/L (3.5-5.1); Thyroid Stimulating Hormone 0.341 uIU/mL (0.360-3.740); Uric Acid 13.6 mg/dL (3.5-7.2)
[2020-01-06] MEDS: FUROSEMIDE 100 MG in NA CHLORIDE 0.9% 90 ML IV SCH ×4 (07:15→21:00)
[2020-01-06 07:50] LABS: Bilirubin Direct 0.3 mg/dL (0-0.2); Bilirubin Total 0.7 mg/dL (0.2-1.0); Protein, Total 6.1 g/dL (6.4-8.2)
[2020-01-06] MEDS: ALBUTEROL 2.5 MG/3 ML NEB SOL NEB PRN (08:05)
[2020-01-06] MEDS: ARFORMOTEROL TARTRATE 15 MCG/2 ML VIAL.NEB NEB SCH (08:05)
[2020-01-06] MEDS: INSULIN GLARGINE 100 UNITS/ML SQ SCH ×2 (08:10→20:58)
[2020-01-06] MEDS: INSULIN -REGULAR HUMAN 50 UNIT/0.5 ML ML SQ SCH ×4 (08:11→20:58)
--- NOTE | 2020-01-06 08:43 | P.PN ---
Subjective Date of Service: 01/06/20 Chief Complaint: Abnormal liver function tests possible COPD Patient states that she is doing much better still has some right upper quadrant pain wants to go and playing golf Review of Systems General: Weakness Respiratory: Shortness of Breath Physical Examination - Vital Signs Temperature: 97.1 F Blood Pressure: 94/52 Pulse: 71 Respirations: 17 Pulse Ox (%): 96 - Physical Exam General: Alert, Oriented x3 HEENT: Atraumatic Neck: Supple Respiratory: Clear to auscultation bilaterally Cardiovascular: No edema Assessment & Plan - Problems (Diagnosis) (1) Acute on chronic systolic CHF (congestive heart failure) Current Visit: No Status: Acute Plan: Patient has improved wing better on Lasix and spironolactone most likely he has had hepatic congestion from his heart failure patient has severe four-chamber dial addition liver function tests and renal function tests are all improving Dc steroids scheduled for an MRCP
[2020-01-06] MEDS: SPIRONOLACTONE 25 MG TABLET PO SCH ×2 (09:00→20:56)
[2020-01-06 09:34] LABS: Bilirubin Total 0.7 mg/dL (0.2-1.0); Potassium 4.1 mmol/L (3.5-5.1); Protein, Total 6.1 g/dL (6.4-8.2)
--- NOTE | 2020-01-06 10:00 | P.PN ---
Subjective Date of Service: 01/06/20 Chief Complaint: Abnormal liver function tests possible COPD Subjective: No new changes, Doing well Review of Systems General: Weakness Eyes: Unremarkable ENT: Unremarkable Respiratory: Cough, Shortness of Breath Cardiovascular: Edema Gastrointestinal: Unremarkable Genitourinary: Unremarkable Musculoskeletal: Back Pain Integumentary: Unremarkable Neurological: Unremarkable Physical Examination - Vital Signs Temperature: 97.1 F Blood Pressure: 94/52 Pulse: 71 Respirations: 17 Pulse Ox (%): 96 - Physical Exam General: Alert, In no apparent distress, Oriented x3, Cooperative HEENT: Atraumatic, Normocephalic, PERRLA, Mucous membr. moist/pink Neck: Supple, 2+ carotid pulse no bruit Respiratory: Clear to auscultation bilaterally, Diminished, Expiratory wheezes ( mild) Cardiovascular: No edema, Normal pulses, Normal S1 S2, Abnormal S3 Gastrointestinal: Hypoactive, Soft and benign, Non-distended Musculoskeletal: No clubbing, Swelling Integumentary: No rashes, No breakdown Neurological: Normal speech, Normal strength at 5/5 x4 extr, Sensation intact, Normal affect Assessment And Plan - Plan Assessment and plans: 01/06/20: Pt is doing better. His BP is more stable. His LFT is improving. 1. Acute respiratory failure: Likely secondary to CHF exacerbation. He cannot tolerate IV lasix q8h and engine generator assembler changed it to IV lasix drip. DC Lorsartan and decreased coreg dose to avoid hypotension. This is improving. 2. Hypotension: Likely due to severe systolic CHF. Sliver Handler changed IV Lasix to drpis. Discontinued losartan and decreased corrected to 3.125 mg b.i.d. now his blood pressure is more stable with SBP 90s-100s. 3. Systolic CHF exacerbation: his ejection fraction is 27% with four chamber dilation. Stress test demonstrated large infusion defection. Continue Lasix, beta-edyta, spironolactone as tolerated. Metal Tester has been following this patient. 4. Myocardial infarction/CAD. Nuclear stress test demonstrated a large perfusion defect suggesting myocardial infarction. Metal Tester planned for cardiac cath once he is more stable. Continue Plavix 5. Acute renal insufficiency. Cr 1.42->1.35. This is secondary to diuresis and cardiorenal syndrome. We appreciated engine generator assembler's input 6. LFT elevation: Finally it started to be improving. This is likely this is due to liver congestion 2/2 CHF. Liver ultrasound demonstrated hemangioma. I do not think hemangioma will contribute to elevated LFT. I hold aspirin and acetaminophen to avoid liver toxicity. Hepatitis panel pending. MRCP was ordered. 7. DM2: Continue current insulin regimen and sliding scale. A1c in the morning 8. HTN: Now BP is stable 9. Chronic back pain. Patient requested pain medications but his BP is at lower side. On low dose morphine - Code Status/Comfort Care Code Status Assessed: Yes Code Status: Full Code Time Spent Managing PTS Care (In Minutes): 35
[2020-01-06] MEDS: MORPHINE 2 MG/ML SYR IV PRN (10:22)
--- NOTE | 2020-01-06 12:25 | RAD REPORT ---
EXAM DESCRIPTION: RAD - Chest Single View - 01/06/2020 12:19 pm CLINICAL HISTORY: COPD Chest pain. COMPARISON: Chest Single View dated 01/03/2020; Chest Single View dated 01/02/2020; Chest Single View d ated 01/02/2020; Chest Single View dated 07/20/2019 FINDINGS: Portable technique limits examination quality. Bilateral pulmonary opacities are again noted, mildly improved since comparative study. The heart is moderately in size with a multi lead pacer/defibrillator device present. No displaced fractures. IMPRESSION: Mild improvement in lung aeration since 01/03/2020 study.
--- NOTE | 2020-01-06 12:30 | RAD REPORT ---
EXAM DESCRIPTION: MRI - Cholangiogram - 01/06/2020 11:42 am CLINICAL HISTORY: worsening LFT Abdominal pain. COMPARISON: Renal Ultrasound-Complete dated 01/05/2020; Abdomen Pelvis W Contrast dated 05/30/2019 FINDINGS: Three-dimensional MRCP was performed using maximum intensity projection reconstruction on the same work station. No intrahepatic biliary tree dilatation is seen. The common bile duct is normal caliber without evide nce of retained stone, stricture or mass. The pancreatic duct is not pathologically dilated. Cholecystectomy. Trace free fluid is seen along the hepatic and splenic margins. Liver size is mildly prominent. No li brayden mass grossly detected. The spleen is normal sized. Pancreatic atrophy is present. No hydronephros is of either kidney. IMPRESSION: No pathologic biliary tree finding is observed. Cholecystectomy.
--- NOTE | 2020-01-06 12:55 | PN ---
Mr. Corona is doing better today. I do not think he is really having unstable angina symptoms. Medic al therapy for his heart failure is helping. His liver function tests are improving, probably due to passive hepatic congestion. I think we want to delay any heart catheterization result. Liver funct ions and other problems are much better. His creatinine is little better than it was yesterday. GERONIMO/GERHARD Voice ID: [id number] Report ID: [id number]
[2020-01-06] MEDS: CLOPIDOGREL 75 MG TABLET PO SCH (13:10)
[2020-01-06] MEDS: DULERA 200/5 (MOMETASONE/FORMOTEROL) INHALER IH SCH ×2 (13:11→20:57)
--- NOTE | 2020-01-06 15:31 | PN ---
Date of Progress Note: 01/06/2020 Subjective: Patient was admitted with CHF exacerbation. Developed acute kidney injury secondary to cardiorenal and hyponatremia. Yesterday, we resumed his Lasix drip. Patient responding very well. Blood pressure still marginally low. Physical Examination: Vital Signs: Blood pressure 94/52, pulse of 71, afebrile. The patient had good urine output of 2100 , negative 700. Chest: Crackles, bilateral base. Heart: S1, S2 regular. Abdomen: Soft, nontender. Extremities: +1 edema. Laboratory Data: WBC 6.1, H and H 14.3/41.7, platelets 177. Sodium 132, potassium 3.8, bicarb 28, B UN 47, creatinine 1.35, glucose 245, GFR of 55, calcium 8.2, uric acid 13.6. LFT started trending do wn. Albumin of 3. PTH is still pending. Cortisol is still pending. Urinalysis negative for infect ion, specific gravity of 1.020, PC ratio 0.3, urine sodium 10, urine potassium of 47. Current Medications: Lasix drip of 10 mg, Plavix, breathing treatment, carvedilol 3.125, spironolact one 25 b.i.d., Ambien, KCl. Assessment And Plan: 1.Acute kidney injury secondary to cardiorenal secondary to congestive heart failure exacerbation. Still on the over volume side. Normal size kidney. Proteinuric, nonnephrotic. I going to go ahead and increase his Lasix to 20 mg. I will get repeat chest x-ray to evaluate the fluid status for the patient and we will follow up. 2.Hypertension, currently marginal low blood pressure. Keep avoiding TONE inhibitor or ARB for the t charleen being. Continue carvedilol. Increase Lasix drip to 20 mg to establish better volume control and we will follow up. 3.Ouo-IT-cpbagfmhb myocardial infarction, congestive heart failure. Follow up with Cardiology. Migue cooley for cardiac cath Friday. We will hold the Lasix drip 12 hours before the cardiac cath and we will follow up. 4.Elevated AST and ALT secondary to congested liver secondary to congestive heart failure, trending down. Follow up with the primary. Plan for MRCP today. 5.Hyponatremia, dilutional secondary to congestive heart failure. We will continue diuresis. Philip m is trending up. 6.Hypokalemia, recovering. Continue current dose of spironolactone. ROSS/MODL Voice ID: [id number] Report ID: [id number]
[2020-01-06] MEDS: HYDROCODONE/APAP 5/325 MG TAB PO PRN (18:23)
[2020-01-07] MEDS: FUROSEMIDE 100 MG in NA CHLORIDE 0.9% 90 ML IV SCH ×6 (00:58→23:25)
[2020-01-07] MEDS: MORPHINE 2 MG/ML SYR IV PRN ×4 (00:59→23:38)
[2020-01-07] MEDS: IPRATROPIUM BROM 0.5MG/2.5ML NEB SCH ×4 (02:38→20:35)
[2020-01-07] MEDS: PANTOPRAZOLE 40MG TABLET PO SCH (05:53)
[2020-01-07] MEDS: carvediloL 3.125 MG TAB PO SCH ×2 (05:53→17:13)
[2020-01-07 06:41] LABS: Phosphorus 2.3 mg/dL (2.5-4.9); Potassium 3.8 mmol/L (3.5-5.1)
[2020-01-07 07:49] LABS: Albumin 2.9 g/dL (3.4-5.0); Bilirubin Direct 0.2 mg/dL (0-0.2); Bilirubin Total 0.6 mg/dL (0.2-1.0); Protein, Total 6.3 g/dL (6.4-8.2)
[2020-01-07] MEDS: INSULIN -REGULAR HUMAN 50 UNIT/0.5 ML ML SQ SCH ×4 (08:16→20:28)
[2020-01-07] MEDS: INSULIN GLARGINE 100 UNITS/ML SQ SCH ×2 (08:17→20:29)
[2020-01-07] MEDS: DULERA 200/5 (MOMETASONE/FORMOTEROL) INHALER IH SCH ×2 (08:17→20:27)
[2020-01-07] MEDS: SPIRONOLACTONE 25 MG TABLET PO SCH ×2 (08:18→20:27)
[2020-01-07] MEDS: CLOPIDOGREL 75 MG TABLET PO SCH (08:18)
[2020-01-07] MEDS: POTASS/SODIUM PHOSPHATE 1 PKT POWD.PACK PO SCH ×2 (08:18→10:12)
[2020-01-07] MEDS ORDERED: POTASSIUM CL SA 10 MEQ TAB PO ONE (09:00)
[2020-01-07] MEDS ORDERED: GUAIFENESIN/DM 5 ML UCUP PO PRN (09:42)
--- NOTE | 2020-01-07 09:56 | P.PN ---
Subjective Date of Service: 01/07/20 Chief Complaint: Abnormal liver function tests possible COPD Patient is feeling much better regarding to his breathing. He complains of insomnia Review of Systems General: Weakness Eyes: Unremarkable ENT: Unremarkable Respiratory: Cough, Dry, Shortness of Breath Cardiovascular: Edema, Unremarkable Gastrointestinal: Unremarkable Genitourinary: Unremarkable Musculoskeletal: Back Pain Integumentary: Unremarkable Neurological: Unremarkable Lymphatics: Unremarkable Physical Examination - Vital Signs Temperature: 97.2 F Blood Pressure: 111/84 Pulse: 73 Respirations: 20 Pulse Ox (%): 95 - Physical Exam General: Alert, In no apparent distress, Oriented x3, Cooperative HEENT: Atraumatic, Normocephalic, PERRLA, Mucous membr. moist/pink Neck: Supple, 2+ carotid pulse no bruit, JVD not distended Respiratory: Clear to auscultation bilaterally, Normal air movement Cardiovascular: No edema, Normal pulses, Regular rate/rhythm, Normal S1 S2, Abnormal S3, Edema Gastrointestinal: Normal bowel sounds, Hypoactive, Soft and benign Musculoskeletal: No clubbing, No contractures, No erythema, No tenderness, Swelling Integumentary: No rashes, No breakdown, No significant lesion Neurological: Normal gait, Normal speech, Normal strength at 5/5 x4 extr, Normal tone, Sensation intact, Cranial nerves 3-12 intact, Normal reflexes 2+, Normal affect Assessment And Plan - Plan Assessment and plans: 01/06/20: Pt is doing better. His BP is more stable. His LFT is improving. 01/07/20: Patient is doing much better. Less SOB and edema. He was then transferred to the medical floor from ICU. His liver function is greatly improved. Continue IV Lasix drip rubber turner. His renal function is improved. Computer Programming Manager planned for cardiac cath next Friday. 1. Acute respiratory failure: Likely secondary to CHF exacerbation. On IV lasix drip. DC Lorsartan and decreased coreg dose to avoid hypotension. This is greatly improved. 2. Hypotension: Likely due to severe systolic CHF. Ruby On Rails Consultant changed IV Lasix to drpis. Discontinued losartan and decreased corrected to 3.125 mg b.i.d. now his blood pressure is more stable with SBP 100s-110s 3. Systolic CHF exacerbation: his ejection fraction is 27% with four chamber dilation. Stress test demonstrated large infusion defection. Continue Lasix, beta-edyta, spironolactone. Computer Programming Manager has been following this patient. 4. Myocardial infarction/CAD. Nuclear stress test demonstrated a large perfusion defect suggesting myocardial infarction. Computer Programming Manager planned for cardiac cath . Continue Plavix 5. Acute renal insufficiency. Cr 1.42->1.35->1.17. This is secondary to diuresis and cardiorenal syndrome. We appreciated rubber turner's input 6. LFT elevation: This is likely this is due to liver congestion 2/2 CHF. Liver ultrasound demonstrated hemangioma. I do not think hemangioma contributes to elevated LFT. I hold aspirin and acetaminophen to avoid liver toxicity. Hepatitis panel pending. MRCP unremarkable. This is greatly improved.ALT 378->259. AST 554->167 7. DM2: Continue current insulin regimen and sliding scale. A1c 12.6. On Lantus 20 units bid. 8. HTN: Now BP is stable 9. Chronic back pain. Patient requested pain medications. On low dose morphine and norco Plan to discharge in: Greater than 2 days - Code Status/Comfort Care Code Status Assessed: Yes Code Status: Full Code Time Spent Managing PTS Care (In Minutes): 31
--- NOTE | 2020-01-07 12:26 | P.PN ---
Subjective Date of Service: 01/07/20 Chief Complaint: Abnormal liver function tests possible COPD Subjective: Improving Subjective Pt with CHF, admitted for SOB and fluid overload , had Mathew and hyponatremia with elevated LFT Today No overnight events BP stable still have rales on exam will add metolazone will rpt CXr tomorrow , and conisder switching to PO diuretics Physical exam general: AAOX3, NAD , obese Neck; Supple, No elevated JVD hear: RRR, normal S1,2 no murmur or rub Chest: B/L basal rales Abdomen: Soft , Nt Extremities No edema or ulcer Assessment And Plan: MATHEW due to cardiorenal syndrome Cr at baseline Cont lasix drip, will add metolazone X1 hypervolemic hyponatremia resolved Elevated LFT due to congested liver LFT improving MRCP negative CHF diutrics as above off TONE for now DM as per PCP Physical Examination - Vital Signs Temperature: 97.2 F Blood Pressure: 109/73 Pulse: 67 Respirations: 20 Pulse Ox (%): 95
[2020-01-07] MEDS ORDERED: METOLAZONE 5 MG TABLET PO ONE (13:00)
[2020-01-07] MEDS: HYDROCODONE/APAP 5/325 MG TAB PO PRN (20:28)
[2020-01-07] MEDS ORDERED: ZOLPIDEM TARTRATE 5 MG TABLET PO SCH (21:00)
[2020-01-07] MEDS ORDERED: ZOLPIDEM TARTRATE 5 MG TABLET PO ONE (23:30)
[2020-01-08] MEDS: IPRATROPIUM BROM 0.5MG/2.5ML NEB SCH ×4 (02:30→20:30)
[2020-01-08] MEDS ORDERED: MORPHINE 4 MG/ML SYR IV ONE (03:35)
[2020-01-08] MEDS: FUROSEMIDE 100 MG in NA CHLORIDE 0.9% 90 ML IV SCH ×5 (04:05→23:16)
[2020-01-08] MEDS: PANTOPRAZOLE 40MG TABLET PO SCH (05:56)
[2020-01-08] MEDS: carvediloL 3.125 MG TAB PO SCH ×2 (06:00→17:20)
[2020-01-08 06:45] LABS: Albumin 3.4 g/dL (3.4-5.0); Bilirubin Direct 0.4 mg/dL (0-0.2); Bilirubin Total 1.1 mg/dL (0.2-1.0); Phosphorus 3.1 mg/dL (2.5-4.9); Potassium 3.6 mmol/L (3.5-5.1); Protein, Total 6.9 g/dL (6.4-8.2)
[2020-01-08] MEDS ORDERED: POTASSIUM CL SA 10 MEQ TAB PO ONE (08:00)
[2020-01-08] MEDS: SPIRONOLACTONE 25 MG TABLET PO SCH ×2 (08:39→20:06)
[2020-01-08] MEDS: CLOPIDOGREL 75 MG TABLET PO SCH (08:40)
[2020-01-08] MEDS: DULERA 200/5 (MOMETASONE/FORMOTEROL) INHALER IH SCH ×2 (08:40→20:05)
[2020-01-08] MEDS: INSULIN GLARGINE 100 UNITS/ML SQ SCH ×2 (08:41→20:05)
[2020-01-08] MEDS: INSULIN -REGULAR HUMAN 50 UNIT/0.5 ML ML SQ SCH ×4 (08:42→20:04)
[2020-01-08] MEDS: MORPHINE 2 MG/ML SYR IV PRN (08:50)
[2020-01-08] MEDS: METOLAZONE 5 MG TABLET PO SCH (10:08)
--- NOTE | 2020-01-08 10:13 | RAD REPORT ---
EXAM DESCRIPTION: Kam Single View01/08/2020 9:13 am CLINICAL HISTORY: sob COMPARISON: January 06, 2020 FINDINGS: Mild bilateral interstitial lung opacities persist The heart is mildly to moderately enlarged. Pacemaker leads are in place. IMPRESSION: Mild CHF
--- NOTE | 2020-01-08 11:59 | PN ---
Date of Progress Note: 01/08/2020 Subjective: Patient was admitted with CHF exacerbation and stable angina, non-ST elevation OH. Nicole ent had acute kidney injury secondary to cardiorenal. Patient started on Lasix drip. Kidney functio n back to baseline. Patient still has shortness of breath. Objective: Vital Signs: Blood pressure 131/68, pulse of 80. Patient yesterday adding metolazone. Patient had urine output of 5800, negative of 4 L. Chest: Crackles bilateral. Heart: S1, S2. Systolic murmur. Abdomen: Soft, nontender. Extremities: Trace edema. Laboratory Data: WBC 6.1, H and H 14.3/41.7, platelet 177, sodium 134, potassium 3.6, bicarb 41, BUN 37, creatinine 1.1, calcium 9.4, phosphorus 3.1. LFT trending down. Medications: Current medication the patient on include Lasix drip 20 mg daily, Plavix, breathing valerie atment, spironolactone 25 b.i.d., carvedilol, Ambien. Assessment And Plan: 1.Acute kidney injury secondary to cardiorenal, proteinuric, nephrotic with normal size kidney. Sti ll over volume, I am going to add metolazone. Continue spironolactone and we will follow up the nicole ent. 2.Hypertension. We will keep utilizing blood pressure for more ultrafiltration. 3.Congestive heart failure. Still over volume with recent unstable angina. Follow up with Cardiolo gy. 4.Secondary hyper para-calcium and phosphorus under goal. I do not see the need for any binder or v itamin D for the time being. 5.Peripheral vascular disease, stable. 6.Hyponatremia secondary to dilutional, resolve. 7.Insomnia. We will give the patient Xanax. 8.Hypokalemia secondary to diuresis. I will supplement. ROSS/GERHARD Voice ID: [id number] Report ID: [id number]
[2020-01-08] MEDS ORDERED: LORazepam 2 MG/ML VIAL IV ONE (12:00)
--- NOTE | 2020-01-08 15:39 | PN ---
Mr. Corona seems to be doing much better than as the last few days. He does seem to have unstable cor onary heart disease according to the nuclear stress test. I want him to stay until Friday when we ca n do a cardiac cath, possibly another stent. GERONIMO/GERHARD Voice ID: [id number] Report ID: [id number]
--- NOTE | 2020-01-08 16:06 | PN ---
Subjective: Currently, patient lying on his bed. He looks comfortable. He is irritated because he was not able to have a good night sleep. He wants something for sleep. He received morphine last ni ght, but that did not help. He has no chest pain. No abdominal pain. He continued to go to the [facility] hroo significantly. Objective: Vital Signs: Currently, blood pressure 131/68, respiratory rate 18, pulse 74, temperatur e 97.3. General: Patient is alert and oriented x3. Does not look in any distress. HEENT: Atraumatic, normocephalic. PERRLA. Oral mucosa is moist. Neck: Supple. No JVD. No bruits. Chest: Clear to auscultation with bibasilar crackles. Abdomen: Soft, nontender. No masses. No hepatosplenomegaly. Positive bowel sounds. Obese. Extremities: No clubbing or cyanosis. Trace edema noted. No calf tenderness. Neurologic: Grossly intact. Laboratory Data: Currently, CBC was normal. Chemistry was normal except for sodium of 134, chloride of 89, carbon dioxide 41, GFR 66, glucose 112. LFTs; AST down to 108, ALT down to 227. Assessment And Plan: 1.Acute respiratory failure secondary to congestive heart failure, resolved. Currently on IV Lasix drip with very good urine output. 2.Hypertension, improved secondary to severe systolic congestive heart failure. Patient is currentl y on IV Lasix drip, also losartan, Coreg down to 3.125 twice a day. Blood pressure much better. 3.Systolic congestive heart failure. Ejection fraction 27% with four-chamber dilation. Stress test demonstrated large defect. Continue Lasix, beta-blockers, spironolactone. Cardiology will do cardi ac cath on Friday. 4.Myocardial infarction with large perfusion defect on nuclear stress test. Patient will have cardi ac cath on Friday. Continue Plavix, aspirin, beta-edyta. 5.Acute renal failure, improved. Patient currently on IV Lasix. Nephrology following, appreciate i nput. 6.Elevated LFTs continued to improve, most likely secondary to liver congestion secondary to congest pamela heart failure. Tylenol was stopped earlier and patient just kept on Plavix. I think it is safe now to restart aspirin. MRCP was unremarkable. Hepatitis panel ordered the result is pending. 7.Diabetes mellitus, not well controlled. Patient's hemoglobin A1c was 12.6. He is currently on La ntus at 20 twice a day. Over yesterday, his glucose was in the range of 139 to 253, so I will increa se Lantus to 22 units twice a day. 8.Chronic back pain, on p.r.n. pain medication. 9.Insomnia, severe. I will start patient on p.r.n. Ativan. 10.Patient is full code. LEVI/GREHARD Voice ID: [id number] Report ID: [id number]
[2020-01-08] MEDS ORDERED: LORAZEPAM 1 MG TABLET PO ONE (21:00)
[2020-01-09] MEDS: IPRATROPIUM BROM 0.5MG/2.5ML NEB SCH ×4 (01:45→20:25)
[2020-01-09] MEDS: FUROSEMIDE 100 MG in NA CHLORIDE 0.9% 90 ML IV SCH ×4 (04:25→18:18)
[2020-01-09] MEDS: PANTOPRAZOLE 40MG TABLET PO SCH (05:34)
[2020-01-09] MEDS: carvediloL 3.125 MG TAB PO SCH ×2 (06:00→16:51)
[2020-01-09 06:07] LABS: Albumin 3.6 g/dL (3.4-5.0); Phosphorus 4.1 mg/dL (2.5-4.9); Potassium 3.7 mmol/L (3.5-5.1)
[2020-01-09] MEDS ORDERED: POTASSIUM CL SA 10 MEQ TAB PO ONE ×2 (08:00)
[2020-01-09] MEDS: INSULIN -REGULAR HUMAN 50 UNIT/0.5 ML ML SQ SCH ×4 (08:00→21:59)
[2020-01-09] MEDS: POTASSIUM 25 MEQ EFFERV TAB PO SCH (08:31)
[2020-01-09] MEDS: CLOPIDOGREL 75 MG TABLET PO SCH (08:32)
[2020-01-09] MEDS: ASPIRIN EC 81 MG TAB PO SCH (08:32)
[2020-01-09] MEDS: DULERA 200/5 (MOMETASONE/FORMOTEROL) INHALER IH SCH ×2 (08:33→21:58)
[2020-01-09] MEDS: INSULIN GLARGINE 100 UNITS/ML SQ SCH ×2 (08:34→21:58)
[2020-01-09] MEDS: METOLAZONE 5 MG TABLET PO SCH (08:53)
[2020-01-09] MEDS: SPIRONOLACTONE 25 MG TABLET PO SCH ×2 (08:53→21:58)
--- NOTE | 2020-01-09 11:01 | PN ---
Mr. Corona seems to be doing better. Today, he is quite hyponatremic so are going to hold off on givi ng him as much diuretic. He is the most stable he has been in the past 10 days. He has evidence of ischemia and non-ST elevation AR. So, I would recommend we do a cardiac cath. We will plan that for tomorrow. We will primarily attempt a radial approach, use the femoral approach as a backup. If th e radial approach fails, we will do a cath and possible another stent. He has several stents in his LAD, the last one was 8 months ago. No evidence of infarction or ischemia in the anterior wall. The patient seems to understand the procedure, its potential benefits, indications, risks, and agrees to proceed. GERONIMO/GERHARD Voice ID: [id number] Report ID: [id number]
--- NOTE | 2020-01-09 12:25 | PN ---
Date of Progress Note: 01/09/2020 Subjective: Patient was admitted with non-ST elevation IA, unstable angina, congestive heart failure . Patient developed acute kidney injury. Secondary to cardiorenal, patient was placed back on Lasix drip. In the last 48 hours, patient lost almost 9 L of urine output. Negative balance of 6500. William sanchez still on nasal cannula. Plan for cardiac cath tomorrow. Physical Examination: Vital Signs: Blood pressure 95/61, pulse of 71. Had urine output of 3700. Chest: Faint rales, more prominent on the left side. Heart: S1, S2. Regular. Abdomen: Soft, nontender. Extremities: +1 edema. Laboratory Data: WBC 6.1; H and H 14.3/41.7; platelets of 177; sodium 129; potassium 3.7; bicarb 39; BUN 46; creatinine 1.3, trending up; GFR of 57; calcium 9.4; phosphorus 4.1; albumin of 3.6. PTH of 113. PC ratio 0.3. Current Medications: The patient on include: 1.Lasix drip 20 mg per hour. 2.Aspirin breathing treatment. 3.Carvedilol 3.125. 4.Spironolactone 25 b.i.d. 5.Metolazone 5 mg daily. 6.Zofran. 7.Pantoprazole. Assessment And Plan: 1.Acute kidney injury secondary to cardiorenal over volume. I am going to continue Lasix drip for t raheem 12 hours before the cardiac cath. At that time, we will hold the Lasix drip and we will monitor the patient. I am going to except marginal decline in the kidney function in favor of establishing better volume control, given that the patient is going to have cardiac cath tomorrow. 2.I am going to hold metolazone for today and we will follow up. 3.Hypertension, currently marginal on the lower side. Continue carvedilol. We will utilize the blo od pressure for more diuresis. 4.Hyponatremia secondary to dilutional and the hypokalemia secondary to the diuresis. Continue spir onolactone. I will supplement potassium. Unfortunately, I cannot increase the spironolactone furthe r because he is going to worsening his hyponatremia and his blood pressure is marginal. 5.We will supplement potassium. 6.Coronary artery disease, congestive heart failure, as by Cardiology. As I mentioned, patient is s cheduled for cardiac cath tomorrow. We will hold Lasix drip 12 hour, hold metolazone today. We will resume it a day after and we will follow up. 7.Diabetes as by primary. Case discussed with Dr. Veloz, Cardiology, agreed on the plan. Discussed with hospitalist Dr. Ellen san, agreed on the plan. Discussed with the staff who verbalized understanding. SHIRLEY Voice ID: [id number] Report ID: [id number]
--- NOTE | 2020-01-09 15:22 | PN ---
Subjective: Patient currently lying in bed. He is sleeping, but arousable. He has no chest pain. No abdominal pain. No fever, no chills, no night sweats. His breathing is fine, but he has been com plaining that he is not getting enough or good night sleep. Objective: Vital Signs: Blood pressure , respiratory rate 18, pulse 71, temperature 97. General: Patient is sleeping but arousable. Does not look in any distress. HEENT: Atraumatic, normocephalic. PERRLA. Oral mucosa dry. Neck: Supple. No JVD. No carotid bruits. Chest: Clear to auscultation with fine basilar crackles. Heart: Regular rate and rhythm. S1, S2 normal. No gallop or murmur. Abdomen: Soft, nontender. No masses. No hepatosplenomegaly. Positive bowel sounds. Obese. Extremities: No clubbing or cyanosis. Trace edema in both lower extremities. No calf tenderness. Neurologic: Grossly intact. Cranial nerve exam 2 through 12 intact. Normal sensation. Normal refl exes. Normal muscle strength. Laboratory Data: Labs today showed CBC within normal. Chemistry within normal except for sodium 129 , chloride 83, carbon dioxide 39, BUN of 46, and creatinine 1.32. Glucose in the range of 170 to 247 . Assessment And Plan: 1.Acute respiratory failure secondary to congestive heart failure, resolved. Patient on IV Lasix dr ip. Nephrology following. Creatinine today is slightly elevated. 2.Hypotension, resolved, still borderline though secondary to patient's severe systolic congestive h eart failure. Patient currently on IV Lasix drip. His losartan was stopped earlier. He is still on Aldactone and his Coreg was lowered to 3.125 mg b.i.d. We will continue to observe blood pressure c losely. 3.Systolic congestive heart failure, ejection fraction 27% with 4-chamber dilation. Stress test dem onstrated large perfusion defect. Continue Lasix, beta-blockers, spironolactone. Cardiology will pr oceed with catheterization on Friday. 4.Myocardial infarction with large perfusion defect on nuclear stress test. Again, the patient will receive cardiac cath on Friday. He is on beta-edyta, Plavix. Resume his aspirin as his LFTs were going down. 5.Acute renal failure secondary to IV Dilaudid drip. Nephrology is following, appreciate recommendation. 6.Elevated LFTs, continue to improve today. Labs pending. We will recheck LFTs on a daily basis an d follow. MRCP was unremarkable. Hepatitis profile is still pending. 7.Diabetes mellitus, still not well controlled. Hemoglobin A1c was 12.6. I will increase his Lantu s from 22 units twice a day to 24 units twice a day. 8.Back pain, chronic. On p.r.n. medication. 9.Insomnia, better. Patient receiving p.r.n. Ativan. LEVI/TARIL Voice ID: [id number] Report ID: [id number]
[2020-01-09] MEDS: MORPHINE 2 MG/ML SYR IV PRN (18:23)
[2020-01-09 20:05] LABS: HBsAG Nonreactive (Nonreactive)
[2020-01-09] MEDS: ACETYLCYST 20% 800 MG/4 ML VIAL PO SCH (21:00)
[2020-01-10] MEDS: FUROSEMIDE 100 MG in NA CHLORIDE 0.9% 90 ML IV SCH ×5 (00:13→18:01)
[2020-01-10] MEDS: IPRATROPIUM BROM 0.5MG/2.5ML NEB SCH ×4 (02:20→20:00)
[2020-01-10] MEDS: HYDROCODONE/APAP 5/325 MG TAB PO PRN (03:52)
[2020-01-10 04:46] LABS: Albumin 3.8 g/dL (3.4-5.0); Bilirubin Total 0.8 mg/dL (0.2-1.0); Potassium 3.5 mmol/L (3.5-5.1)
[2020-01-10] MEDS: carvediloL 3.125 MG TAB PO SCH ×2 (05:54→17:12)
[2020-01-10] MEDS ORDERED: POTASSIUM CL SA 10 MEQ TAB PO ONE (06:37)
[2020-01-10] MEDS: METOLAZONE 5 MG TABLET PO SCH (08:15)
[2020-01-10] MEDS: POTASSIUM 25 MEQ EFFERV TAB PO SCH (08:17)
[2020-01-10] MEDS: INSULIN -REGULAR HUMAN 50 UNIT/0.5 ML ML SQ SCH ×4 (08:18→21:00)
[2020-01-10] MEDS: CLOPIDOGREL 75 MG TABLET PO SCH (08:19)
[2020-01-10] MEDS: DULERA 200/5 (MOMETASONE/FORMOTEROL) INHALER IH SCH ×2 (08:19→20:53)
[2020-01-10] MEDS: INSULIN GLARGINE 100 UNITS/ML SQ SCH ×2 (08:19→21:00)
[2020-01-10] MEDS: ACETYLCYST 20% 800 MG/4 ML VIAL PO SCH ×2 (08:20→20:54)
[2020-01-10] MEDS: ASPIRIN EC 81 MG TAB PO SCH (08:30)
[2020-01-10] MEDS: SPIRONOLACTONE 25 MG TABLET PO SCH ×2 (08:30→20:51)
[2020-01-10] MEDS: MORPHINE 2 MG/ML SYR IV PRN (09:08)
--- NOTE | 2020-01-10 10:37 | P.PN ---
Subjective Date of Service: 01/10/20 Chief Complaint: SOB Subjective: Improving Review of Systems 10-point ROS is otherwise unremarkable Physical Examination - Vital Signs Temperature: 97.0 F Blood Pressure: 97/59 Pulse: 66 Respirations: 17 Pulse Ox (%): 93 - Physical Exam General: Alert, In no apparent distress, Cooperative HEENT: Atraumatic, Normocephalic Neck: Supple Respiratory: Clear to auscultation bilaterally Cardiovascular: Regular rate/rhythm Capillary refill: <2 Seconds Gastrointestinal: Soft and benign, Non-distended, W/out hepatosplenomegaly Musculoskeletal: No clubbing, No erythema Integumentary: No rashes Neurological: Normal speech, Normal strength at 5/5 x4 extr Lymphatics: No axilla or inguinal lymphadenopathy Urinary: Other (No bladder distention) External genitalia: Deferred Rectal: Deferred Assessment & Plan - Problems (Diagnosis) (1) Acute on chronic systolic CHF (congestive heart failure) Current Visit: No Status: Acute (2) CHF (congestive heart failure) Onset Date: 06/08/18 Current Visit: No Status: Acute Qualifiers: Heart failure type: systolic Heart failure chronicity: acute Qualified Code(s): I50.21 - Acute systolic (congestive) heart failure (3) Chest pain Onset Date: 01/13/18 Current Visit: No Status: Acute Qualifiers: (4) CAD (coronary artery disease) Onset Date: 06/08/18 Current Visit: No Status: Chronic Qualifiers: Coronary Disease-Associated Artery/Lesion type: [place] artery [place] vs. transplanted heart: [place] heart Associated angina: without angina Qualified Code(s): I25.10 - Atherosclerotic heart disease of [place] coronary artery without angina pectoris (5) DVT (deep venous thrombosis) Onset Date: 06/30/18 Current Visit: No Status: Chronic (6) HTN (hypertension) Onset Date: 06/08/18 Current Visit: No Status: Chronic Plan: Hyponatremia Hypochloremia Acute kidney injury Hyperglycemia elevated LFTs Elevated BNP X-ray suggestive of CHF On diuretics Acute respiratory failure secondary to congestive heart failure, resolved. Patient on IV Lasix drip. Appreciate help from cardiology and nephrology Monitor renal parameters closely Hypotension, resolved, still borderline though secondary to patient's severe systolic congestive heart failure. on IV Lasix drip. will continue to observe blood pressure closely. Acute on chronic Systolic congestive heart failure, ejection fraction 27% with 4 -chamber dilation. Stress test demonstrated large perfusion defect. Continue Lasix, beta-blockers, spironolactone. Cardiology help appreciated Getting a left heart catheterization today Acute renal failure Nephrology is following, Appreciate recommendation. Elevated LFTs, continue to improve recheck LFTs on a daily basis and follow. MRCP was unremarkable. Hepatitis profile is still pending. Probably due to congestive liver Diabetes mellitus, Hemoglobin A1c was 12.6. Will titrate insulin Chronic back pain On p.r.n. medication. PT evaluation Insomnia, better. Qualifiers: Hypertension type: essential hypertension Qualified Code(s): I10 - Essential (primary) hypertension Discharge Plan: Home Plan to discharge in: 48 Hours Time Spent Managing Pts Care (In Minutes): 45
[2020-01-10] MEDS ORDERED: NA CHLORIDE 0.9% 500 ML ONE (12:39)
[2020-01-10] MEDS ORDERED: HEPA 1000U/500MLS 0 UNIT/0 ML BAG IV ONE (13:06)
[2020-01-10] MEDS ORDERED: HEPARIN 5000 UNIT/ML 1 ML VIAL ONE (13:07)
[2020-01-10] MEDS ORDERED: FENTANYL CITR 100 MCG/2 ML ONE (13:07)
[2020-01-10] MEDS ORDERED: MIDAZOLAM HCL 2 MG/2 ML INJ ONE (13:07)
[2020-01-10] MEDS ORDERED: NICARDIPINE HCL 25 MG/10 ML IV ONE (13:07)
[2020-01-10] MEDS ORDERED: ATROPINE SULF 1 MG/10 ML SYR IV ONE (13:08)
[2020-01-10] MEDS ORDERED: NA CHLORIDE 0.9% 0 ML ONE (13:08)
[2020-01-10] MEDS ORDERED: LIDOCAINE 1% MPF 30 ML VIAL ONE (13:30)
[2020-01-10] MEDS: CYCLOBENZAPRINE 10 MG TAB PO PRN (17:56)
[2020-01-10] MEDS ORDERED: TRAZODONE 50 MG TABLET PO ONE (20:13)
[2020-01-10] MEDS ORDERED: LORazepam 2 MG/ML VIAL IV PRN (20:14)
--- NOTE | 2020-01-10 22:14 | OP ---
Surgeon: Ankit Veloz MD Mr. Corona was brought to the cardiac lab assistant in fasting. He had given us informed consent, but he s tarted behaving rudely and being insulting to the nurses and he refused to cooperate. I talked about his wishes and he just wanted to go back to his room, so I am taking this as a refusal to go through with a cardiac cath which of course he is free to do. We will talk about whether he wants to resche dule. I would be reluctant to reschedule a cardiac cath and Mr. Corona will proceed with medical ther apy for CAD and congestive heart failure. GERONIMO/MODL Voice ID: [id number] Report ID: [id number]
[2020-01-11] MEDS: FUROSEMIDE 100 MG in NA CHLORIDE 0.9% 90 ML IV SCH ×3 (00:12→10:37)
--- NOTE | 2020-01-11 01:09 | PN ---
Date of Progress Note: 01/10/2020 Chief Complaint: Fluid overload, anasarca, acute kidney injury. History Of Present Illness: Patient has acute kidney injury secondary to cardiorenal syndrome. He w as placed on Lasix drip for volume control and to treat anasarca. Provide management for congestive heart failure. Review of Systems: Denies chest pain, palpitation. Physical Examination: Lungs: Crackles bilaterally at bases. Heart: S1, S2. Abdomen: Soft, benign. Extremities: Edema present in both legs. Laboratory Work: Creatinine 1.3, BUN 46. Sodium 127, potassium 3.6, bicarbonate 39, calcium 9.4, al bumin 3.6. Impression And Plan: 1.Acute kidney injury secondary to cardiorenal syndrome with volume overload. Patient will continue IV Lasix drip. Started with IV Lasix to control fluid overload. Patient has nonoliguric urine outp ut. 2.Hyponatremia secondary to cardiorenal syndrome. There is borderline hypokalemia and patient will continue potassium replacement. Continue fluid restriction to control hyponatremia. 3.Hypokalemia. Monitor magnesium level. Replace potassium. 4.Congestive heart failure with diastolic dysfunction. Metolazone on hold. Likely, this was a contributor factor to hyponatremia. Continue loop diuretics. EB/MODL Voice ID: [id number] Report ID: [id number]
[2020-01-11] MEDS: IPRATROPIUM BROM 0.5MG/2.5ML NEB SCH ×4 (02:00→20:00)
[2020-01-11] MEDS: carvediloL 3.125 MG TAB PO SCH ×2 (05:14→17:10)
[2020-01-11] MEDS: MORPHINE 2 MG/ML SYR IV PRN (05:14)
[2020-01-11 06:10] LABS: Absolute Lymphocytes (CBC) 3.1 K/uL (0.7-4.9); Basophils % 0.7 % (0-1.3); Hematocrit 54.1 % (39.6-49.0); Lymphocytes % 21.8 % (15.3-44.8); MPV 8.3 fL (7.6-11.3); RBC Red Blood Cell Count 5.84 M/uL (4.33-5.43)
[2020-01-11 07:53] LABS: Blood Morphology Comment NOT SEEN (NOT SEEN); Platelet Estimate ADEQ; Urine White Blood Cell Casts OK
[2020-01-11] MEDS: INSULIN GLARGINE 100 UNITS/ML SQ SCH ×2 (08:38→21:00)
[2020-01-11] MEDS: INSULIN -REGULAR HUMAN 50 UNIT/0.5 ML ML SQ SCH ×4 (08:38→21:00)
[2020-01-11] MEDS: SPIRONOLACTONE 25 MG TABLET PO SCH ×2 (08:40→21:00)
[2020-01-11] MEDS: ASPIRIN EC 81 MG TAB PO SCH (08:41)
[2020-01-11] MEDS: POTASSIUM 25 MEQ EFFERV TAB PO SCH (08:41)
[2020-01-11] MEDS: DULERA 200/5 (MOMETASONE/FORMOTEROL) INHALER IH SCH ×2 (08:41→21:00)
[2020-01-11] MEDS: CLOPIDOGREL 75 MG TABLET PO SCH (08:42)
[2020-01-11] MEDS: METOLAZONE 5 MG TABLET PO SCH (08:42)
[2020-01-11 08:56] LABS: Albumin 3.7 g/dL (3.4-5.0); Potassium 3.2 mmol/L (3.5-5.1); Protein, Total 7.8 g/dL (6.4-8.2)
[2020-01-11] MEDS: ACETYLCYST 20% 800 MG/4 ML VIAL PO SCH (08:59)
--- NOTE | 2020-01-11 09:25 | P.PN ---
Subjective Date of Service: 01/11/20 Chief Complaint: SOB Subjective: No new changes Review of Systems 10-point ROS is otherwise unremarkable Physical Examination - Vital Signs Temperature: 97.2 F Blood Pressure: 98/52 Pulse: 89 Respirations: 18 Pulse Ox (%): 92 - Physical Exam General: Alert, In no apparent distress HEENT: Atraumatic, Normocephalic Neck: Supple Respiratory: Clear to auscultation bilaterally Cardiovascular: Regular rate/rhythm Capillary refill: <2 Seconds Gastrointestinal: Soft and benign, W/out hepatosplenomegaly Musculoskeletal: No clubbing Integumentary: No rashes Neurological: Normal speech, Normal strength at 5/5 x4 extr Lymphatics: No axilla or inguinal lymphadenopathy Urinary: Other (No bladder distention) External genitalia: Deferred Rectal: Deferred Assessment & Plan - Problems (Diagnosis) (1) Acute on chronic systolic CHF (congestive heart failure) Current Visit: No Status: Acute (2) CHF (congestive heart failure) Onset Date: 06/08/18 Current Visit: No Status: Acute Qualifiers: Heart failure type: systolic Heart failure chronicity: acute Qualified Code(s): I50.21 - Acute systolic (congestive) heart failure (3) Chest pain Onset Date: 01/13/18 Current Visit: No Status: Acute Qualifiers: (4) CAD (coronary artery disease) Onset Date: 06/08/18 Current Visit: No Status: Chronic Qualifiers: Coronary Disease-Associated Artery/Lesion type: [place] artery [place] vs. transplanted heart: [place] heart Associated angina: without angina Qualified Code(s): I25.10 - Atherosclerotic heart disease of [place] coronary artery without angina pectoris (5) DVT (deep venous thrombosis) Onset Date: 06/30/18 Current Visit: No Status: Chronic (6) HTN (hypertension) Onset Date: 06/08/18 Current Visit: No Status: Chronic Plan: Hyponatremia Hypochloremia Acute kidney injury Hyperglycemia elevated LFTs Elevated BNP X-ray suggestive of CHF On diuretics Acute respiratory failure secondary to congestive heart failure, resolved. Patient on IV Lasix drip. Appreciate help from cardiology and nephrology Monitor renal parameters closely Possibly can change lasix drip to p.o. today if okay with nephrology Hypotension, resolved, still borderline though secondary to patient's severe systolic congestive heart failure. on IV Lasix drip. will continue to observe blood pressure closely. Acute on chronic Systolic congestive heart failure, ejection fraction 27% with 4 -chamber dilation. Stress test demonstrated large perfusion defect. Continue Lasix, beta-blockers, spironolactone. Cardiology help appreciated Posted for left heart catheterization but patient refused inspite of discussing in detail with him the importance of the procedure patient adamantly refused any interventions this time Acute renal failure Nephrology is following, Appreciate recommendation. Elevated LFTs, continue to improve recheck LFTs on a daily basis and follow. MRCP was unremarkable. Hepatitis profile is still pending. Probably due to congestive liver Diabetes mellitus, Hemoglobin A1c was 12.6. Will titrate insulin Chronic back pain On p.r.n. medication. PT evaluation Insomnia, better. Over all he has poor prognosis Qualifiers: Hypertension type: essential hypertension Qualified Code(s): I10 - Essential (primary) hypertension Time Spent Managing Pts Care (In Minutes): 42
[2020-01-11] MEDS ORDERED: POTASSIUM CL SA 10 MEQ TAB PO ONE ×2 (09:51→18:00)
[2020-01-11] MEDS ORDERED: KCL 20 MEQ/100 mL IVPB 20 MEQ/100 ML BAG IV SCH (10:00)
[2020-01-11] MEDS ORDERED: KCL 10 MEQ/100 ML IVPB 10 MEQ/100 ML BAG IV SCH (10:00)
--- NOTE | 2020-01-11 13:35 | PN ---
Date of Progress Note: 01/11/2020 Mr. Corona has been in the hospital since 01/03/2020. He was initially admitted by Dr. Carrera. He h as acute on chronic systolic congestive heart failure with an ejection fraction of 27%. He has a def ibrillator, has a positive Lexiscan, but yesterday he refused to have a heart catheterization. His c hest x-ray yesterday showed mild congestive heart failure. He is on aspirin. He is on Plavix. He i s on Coreg. He is on IV Lasix drip, fluid restriction, potassium supplementation. He has cardiorena l syndrome with hyponatremia. Last creatinine was 1.3. He is off metolazone. I agree with his pres ent medical regimen. We can certainly increase his dose of carvedilol. He is really not a candidate for Entresto because of noncompliance. I will leave his diuresis therapy up to Nephrology. Physica l therapy may be of benefit while he is in the hospital. I also recommend that we put him on a stati n. He is not on statin at the present moment. We will continue to follow him. NB/MODL Voice ID: [id number] Report ID: [id number]
--- NOTE | 2020-01-11 13:46 | P.PN ---
Subjective Date of Service: 01/11/20 Chief Complaint: SOB Subjective Pt with CHF, admitted for SOB and fluid overload , had Mathew and hyponatremia with elevated LFT pt was scheduled for cardiac cath , but he refused Today No overnight events BP Border line refused cardiac cath looks euvolemic , bun/Cr trending up sodium 126, corrected 128 , could be metolazone and lasix induced , will dc Both Cont fluid restriction K replaced will rpt CXR tomorrow Physical exam general: AAOX3, NAD , obese Neck; Supple, No elevated JVD hear: RRR, normal S1,2 no murmur or rub Chest: CTAB, no rales or wheezes Abdomen: Soft , Nt Extremities No edema or ulcer Assessment And Plan: MATHEW due to cardiorenal syndrome, now pt euvolemic , will dc diuretics Cr at baseline hyponatremia possibly metolazone induced will dc Diuretics hypokalemia will replace will check Mg Elevated LFT due to congested liver LFT improving MRCP negative CHF now pt euvolemic , will dc diuretics off TONE for now CAD stress test with perfusion defect refused cardiac cath DM as per PCP Physical Examination - Vital Signs Temperature: 97 F Blood Pressure: 94/50 Pulse: 80 Respirations: 16 Pulse Ox (%): 93
[2020-01-11] MEDS: CYCLOBENZAPRINE 10 MG TAB PO PRN (15:24)
[2020-01-11] MEDS: NEPRO SHAKE 237 ML CAN PO SCH (21:00)
[2020-01-12] MEDS: CYCLOBENZAPRINE 10 MG TAB PO PRN (01:25)
[2020-01-12] MEDS: IPRATROPIUM BROM 0.5MG/2.5ML NEB SCH ×2 (02:00→08:00)
[2020-01-12] MEDS: carvediloL 3.125 MG TAB PO SCH (06:00)
[2020-01-12] MEDS: PANTOPRAZOLE 40MG TABLET PO SCH (06:16)
[2020-01-12] MEDS: INSULIN -REGULAR HUMAN 50 UNIT/0.5 ML ML SQ SCH (07:30)
[2020-01-12 07:45] VITALS: O2SAT 92
[2020-01-12] MEDS: DULERA 200/5 (MOMETASONE/FORMOTEROL) INHALER IH SCH (08:21)
[2020-01-12] MEDS: SPIRONOLACTONE 25 MG TABLET PO SCH (08:21)
[2020-01-12] MEDS: POTASSIUM 25 MEQ EFFERV TAB PO SCH (08:21)
[2020-01-12] MEDS: ASPIRIN EC 81 MG TAB PO SCH (08:21)
[2020-01-12] MEDS: CLOPIDOGREL 75 MG TABLET PO SCH (08:22)
[2020-01-12] MEDS: INSULIN GLARGINE 100 UNITS/ML SQ SCH (08:22)
[2020-01-12] MEDS: NEPRO SHAKE 237 ML CAN PO SCH (08:22)
[2020-01-12 08:26] VITALS: BP 98/65; TEMP 97.7
--- NOTE | 2020-01-12 09:01 | RAD REPORT ---
EXAM DESCRIPTION: RAD - Chest Single View - 01/12/2020 5:56 am CLINICAL HISTORY: chf Chest pain. COMPARISON: <Comparisons> FINDINGS: Portable technique limits examination quality. Mild improvement in bilateral pulmonary opacities noted since comparative study. The heart is mildly enlarged in size with multilead pacer/defibrillator device. No displaced fractures.Trace left pleural effusion. IMPRESSION: Mild improvement in lung aeration since comparative study.
--- NOTE | 2020-01-12 10:20 | P.DS ---
Admission Date: 01/03/20 Discharge Date: 01/12/20 Disposition: ROUTINE DISCHARGE Discharge Condition: FAIR Reason for Admission: SOB - Problems (1) Acute on chronic systolic CHF (congestive heart failure) Status: Acute (2) CHF (congestive heart failure) Onset Date: 06/08/18 Status: Acute Qualifiers: Heart failure type: systolic Heart failure chronicity: acute Qualified Code(s): I50.21 - Acute systolic (congestive) heart failure (3) Chest pain Onset Date: 01/13/18 Status: Acute Qualifiers: (4) CAD (coronary artery disease) Onset Date: 06/08/18 Status: Chronic Qualifiers: Coronary Disease-Associated Artery/Lesion type: [place] artery [place] vs. transplanted heart: [place] heart Associated angina: without angina Qualified Code(s): I25.10 - Atherosclerotic heart disease of [place] coronary artery without angina pectoris (5) DVT (deep venous thrombosis) Onset Date: 06/30/18 Status: Chronic (6) HTN (hypertension) Onset Date: 06/08/18 Status: Chronic Qualifiers: Hypertension type: essential hypertension Qualified Code(s): I10 - Essential (primary) hypertension Brief History of Present Illness: 54-year-old gentleman with a significant history of coronary artery disease status post 5 stents, last stent was about 6 months ago, systolic heart failure with EF 35-40%, status post AICD presented to the emergency department with a complaint of chest pain of about 2 days duration and shortness of breath which has been present for about 2 weeks. Patient described an anterior chest, no relieving or aggravating factors, intermittent in nature, nonradiating. He also reports shortness of breath, worse with lying on his back and with exertion , relieved by lying on his left side. He also reports nonproductive cough. He denied palpitation. Chest x-ray done in the emergency department shows increased interstitial markings which could suggest vascular congestion, and cardiomegaly. EKG demonstrated no ischemic changes. Initial troponin is 0.07. Patient is placed under observation for further management. Hospital Course: Acute respiratory failure secondary to congestive heart failure Acute on chronic Systolic congestive heart failure, ejection fraction 27% with 4 -chamber dilation. Stress test demonstrated large perfusion defect. Acute renal failure Elevated LFTs Chronic back pain Diabetes Hyponatremia Hypochloremia The patient was admitted and was monitored closely under telemetry. He was started on aggressive diuresis along with oxygen supplementation. Multiple consultants were involved in the care of the patient including cardiology and nephrology. The patient was on Lasix drip Appreciate help from cardiology and nephrology Monitored renal parameters closely Hypotension, resolved, and was borderline though secondary to patient's severe systolic congestive heart failure. Acute on chronic Systolic congestive heart failure, ejection fraction 27% with 4 -chamber dilation. Stress test demonstrated large perfusion defect. Continued on Lasix, beta- blockers, spironolactone. Cardiology help appreciated , Posted for left heart catheterization but patient refused inspite of discussing in detail with him the importance of the procedure patient adamantly refused any interventions this time Elevated LFTs, ,continue to improve MRCP was unremarkable. Probably due to congestive liver with regards to Diabetes mellitus, Hemoglobin A1c was 12.6. Titrated Insulin He wanted to go home. He does not want any other interventions, he adamantly refused LHC . He saturating well in room air. Wanted to go home if no discharge he threatened to sign out AMA He is being discharged home with advice to follow up with PCP as early as possible and also with Cardiology and Nephrology in 1 week Vital Signs/Physical Exam: Temp Pulse Resp BP Pulse Ox 97.7 F 95 H 20 98/65 92 01/12/20 08:00 01/12/20 08:00 01/12/20 08:00 01/12/20 08:00 01/12/20 08:00 General: Alert, In no apparent distress HEENT: Atraumatic, Normocephalic Neck: Supple Respiratory: Normal air movement Cardiovascular: Regular rate/rhythm Gastrointestinal: Soft and benign Musculoskeletal: No clubbing Integumentary: No rashes Neurological: Normal speech, Normal strength at 5/5 x4 extr Lymphatics: No axilla or inguinal lymphadenopathy Laboratory Data at Discharge: WBC 14.0 K/uL (4.3-10.9) H D 01/11/20 05:37 Hgb 18.1 g/dL (13.6-17.9) H D 01/11/20 05:37 Hct 54.1 % (39.6-49.0) H D 01/11/20 05:37 Plt Count 337 K/uL (152-406) D 01/11/20 05:37 PT 14.1 SECONDS (9.5-12.5) H 01/02/20 03:42 INR 1.20 01/02/20 03:42 Sodium 126 mmol/L (136-145) L 01/11/20 08:06 Potassium 3.4 mmol/L (3.5-5.1) L 01/11/20 16:30 BUN 65 mg/dL (7-18) H 01/11/20 08:06 Creatinine 1.83 mg/dL (0.55-1.3) H 01/11/20 08:06 Glucose 219 mg/dL (74-106) H 01/11/20 08:06 Uric Acid 13.6 mg/dL (3.5-7.2) H 01/06/20 05:53 Phosphorus 4.0 mg/dL (2.5-4.9) 01/10/20 03:57 Magnesium 2.1 mg/dL (1.8-2.4) 01/06/20 05:53 Total Bilirubin 1.0 mg/dL (0.2-1.0) 01/11/20 08:06 AST 33 U/L (15-37) 01/11/20 08:06 ALT 88 U/L (12-78) H 01/11/20 08:06 Alkaline Phosphatase 84 U/L (45-117) 01/11/20 08:06 Troponin I 0.08 ng/mL (0.0-0.045) H 01/02/20 14:20 Home Medications: Aspirin [Aspirin EC 81 MG] 81 mg PO DAILY #30 tablet. 01/12/20 Clopidogrel Bisulfate [Plavix*] 75 mg PO DAILY #30 tablet 01/12/20 Cyclobenzaprine [Flexeril*] 5 mg PO TIDP PRN #20 tab 01/12/20 Furosemide [Lasix] 80 mg PO DAILY #60 tab 01/12/20 Mometasone/Formoterol [Dulera 200 Mcg/5 Mcg Inhaler] 2 puff IH BID #1 inhaler Pantoprazole [Protonix Tab*] 40 mg PO DAILYAC #30 tab 01/12/20 Spironolactone [Aldactone*] 25 mg PO BID #60 tab 01/12/20 carvediloL [Coreg*] 3.125 mg PO BID 6AM 6PM #60 tab 01/12/20 New Medications: Aspirin [Aspirin EC 81 MG] 81 mg PO DAILY #30 tablet. carvediloL [Coreg*] 3.125 mg PO BID 6AM 6PM #60 tab Clopidogrel Bisulfate [Plavix*] 75 mg PO DAILY #30 tablet Cyclobenzaprine [Flexeril*] 5 mg PO TIDP PRN #20 tab PRN Reason: Muscle Spasms Furosemide [Lasix] 80 mg PO DAILY #60 tab Mometasone/Formoterol [Dulera 200 Mcg/5 Mcg Inhaler] 2 puff IH BID #1 inhaler Pantoprazole [Protonix Tab*] 40 mg PO DAILYAC #30 tab Spironolactone [Aldactone*] 25 mg PO BID #60 tab Diet: AHA Activity: Ad tonya Followup: Keya Cortés MD [ACTIVE - CAN ADMIT] - 1-2 Weeks (telecommunications technician- follow up in 2 weeks, call to schedule an appointment ) Ankit Veloz MD [ACTIVE - CAN ADMIT] - 1-2 Weeks (acquisition lead- call to schedule an appointment ) Time spent managing pt's care (in minutes): 39
--- NOTE | 2020-01-12 16:40 | PN ---
Date of Progress Note: 01/12/2020 Subjective: The patient doing better. Still refusing cardiac cath. No shortness of breath. Objective: Vital Signs: Blood pressure 98/65, pulse of 95. Chest: Crackles, bilateral bases. Heart: S1, S2 regular. Systolic murmur. Abdomen: Soft, nontender. Extremities: Trace edema. Laboratory Data: WBC 14, H and H 18.1/54. Sodium of 126, potassium 3.2, bicarb 33, BUN 65, creatini ne 1.8, calcium 9.8. Current Medications: The patient on include carvedilol, aspirin, Lasix, lorazepam. Assessment And Plan: 1.Acute kidney injury secondary to cardiorenal. Resume Lasix 80 mg daily. 2.Hypertension, currently low blood pressure. We will utilize blood pressure to establish better vo lume control. 3.Coronary artery disease with advanced congestive heart failure, ejection fraction 27%. Refused ca rdiac cath. We will follow up with primary and Cardiology. 4.Hypokalemia, resolved. Patient cleared from the renal standpoint for discharge planning to follow up in the office in 2-3 weeks. 5.Hyponatremia, dilutional. We will continue diuresis. ROSS/GERHARD Voice ID: [id number] Report ID: [id number]
== END 2020-01-12 10:52 | disposition home or self-care (01) | DRG 280 ==
LOC: ER 03:21 → ERHOLD 06:56 → 4TH 09:19 → 3RD-ICU 15:01 → OBSVTOIN 01-03 07:46 → 4TH 01-06 12:30
PROVIDERS: ADMIT Internal Medicine; ATTEND Internal Medicine
PROC: 5A09457 Assistance with Respiratory Ventilation, 24-96 Consecutive Hours, Continuous Positive Airway Pressure (ICD-10-PCS; principal; 2020-01-05)
DX: I21.4 Non-ST elevation (NSTEMI) myocardial infarction (principal); I50.23 Acute on chronic systolic (congestive) heart failure; J96.00 Acute respiratory failure, unspecified whether with hypoxia or hypercapnia; J44.1 Chronic obstructive pulmonary disease with (acute) exacerbation; N17.9 Acute kidney failure, unspecified; E87.1 Hypo-osmolality and hyponatremia; I11.0 Hypertensive heart disease with heart failure; E87.6 Hypokalemia; I25.10 Atherosclerotic heart disease of native coronary artery without angina pectoris; E11.69 Type 2 diabetes mellitus with other specified complication; E11.40 Type 2 diabetes mellitus with diabetic neuropathy, unspecified; E78.5 Hyperlipidemia, unspecified; E66.09 Other obesity due to excess calories; F17.210 Nicotine dependence, cigarettes, uncomplicated; F41.9 Anxiety disorder, unspecified; I95.9 Hypotension, unspecified; G47.00 Insomnia, unspecified; M54.9 Dorsalgia, unspecified; Z95.810 Presence of automatic (implantable) cardiac defibrillator
CPT/HCPCS: 36415; 71045; 74181; 76705; 76770; 78452; 80048; 80053; 80069; 80074; 80076; 81003; 81015; 82435; 82533; 82550; 82570; 82805; 82947; 83036; 83735; 83880; 83930; 83935; 83970; 84100; 84132; 84156; 84300; 84443; 84484; 84550; 85025; 85610; 93005; 93017; 93306; 94640; 94660; 94760; 96372; 96374; 96375; 99285; A9500; G0378; J0583; J1644; J1650; J1815; J1940; J2250; J2270; J2405; J2785; J2920; J3010; J3475; J7040; J7605; J7606; P9047

== ENCOUNTER 2020-02-29 09:58 | Observation (INO) | payer OTHER ==
[2020-02-29] MEDS ORDERED: METHYLPREDNISOLONE 125 MG INJ ONE (10:23)
[2020-02-29] MEDS ORDERED: ONDANSETRON 4 MG/2 ML VIAL ONE (10:24)
[2020-02-29] MEDS ORDERED: NA CHLORIDE 0.9% 1,000 ML ONE (10:24)
[2020-02-29] MEDS ORDERED: CEFTRIAXONE/SWI 1gm 1 GM/10 ML SYR ONE (10:24)
[2020-02-29] MEDS ORDERED: MORPHINE 4 MG/ML SYR ONE (10:24)
[2020-02-29] MEDS ORDERED: ALBUTEROL INHALER 60 PUFF/8 GM IH ONE (10:30)
[2020-02-29] MEDS ORDERED: AZITHROMYCIN IV 500 MG in NA CHLORIDE 0.9% 250 ML IVPB ONE (10:30)
[2020-02-29 11:06] LABS: Absolute Lymphocytes (CBC) 1.6 K/uL (0.7-4.9); Basophils % 0.8 % (0-1.3); Hematocrit 36.4 % (39.6-49.0); Lymphocytes % 13.8 % (15.3-44.8); MPV 8.2 fL (7.6-11.3); RBC Red Blood Cell Count 3.98 M/uL (4.33-5.43)
[2020-02-29 11:14] LABS: Protime INR 1.28
[2020-02-29 11:26] LABS: ALT/SGPT 19 U/L (12-78); AST/SGOT 14 U/L (15-37); Albumin 4.1 g/dL (3.4-5.0); Alkaline Phosphatase 70 U/L (45-117); BUN Blood Urea Nitrogen 38 mg/dL (7-18); Bicarbonate 28 mmol/L (21-32); Bilirubin Direct 0.5 mg/dL (0-0.2); Glucose Level 106 mg/dL (74-106); Lipase 65 U/L (73-393); Magnesium 1.6 mg/dL (1.8-2.4); NT PRO-BNP 7413 pg/mL (<125); Potassium 3.4 mmol/L (3.5-5.1); Protein, Total 8.5 g/dL (6.4-8.2); Sodium Level 133 mmol/L (136-145); Troponin (Emerg Dept Use Only) < 0.02 ng/mL (0.0-0.045)
--- OUTSIDE RECORDS SUMMARY | 2020-02-29 11:30 | XMS REPORT ---
:1965 Author Organization [facility] t Address [address] [place] [address] Care Team Providers Name Role Phone DIANA, SANJANA Unavailable Unavailable Problems This patient has no known problems. Allergies, Adverse Reactions, Alerts This patient has no known allergies or adverse reactions. Medications This patient has no known medications. Results Test Description Test Time Test Comments Text Results Atomic Results Result Comments POCT-GLUCOSE METER 2020-01-21 08:36:00 Test Item Value Reference Range Comments POC-GLUCOSE METER (BEAKER) 164 mg/dL 70-110 : HANNAH SHERRILL AT [facility] [address] [place] [address] (test code = 1538) [place], [address]: Op erator/Test Architect ID = [id number] for CHRISTIN WEBSTER BASIC METABOLIC [id number] 07:28:00 Test Item Value Reference Range Comments SODIUM (BEAKER) (test code = 139 meq/L 136-145 381) POTASSIUM (BEAKER) (test 3.8 meq/L 3.5-5.1 code = 379) CHLORIDE (BEAKER) (test code 96 meq/L 98-107 = 382) CO2 (BEAKER) (test code = 33 meq/L 22-29 355) BLOOD UREA NITROGEN (BEAKER) 23 mg/dL 7-21 (test code = 354) CREATININE (BEAKER) (test 0.92 mg/dL 0.57-1.25 code = 358) GLUCOSE RANDOM (BEAKER) 143 mg/dL 70-105 (test code = 652) CALCIUM (BEAKER) (test code 10.4 mg/dL 8.4-10.2 = 697) EGFR (BEAKER) (test code = INSUF FICIENT CLINICAL DATA TO 1092) CALCULATE ESTIMA SHERRILL GFR. Network Support Administrator ID - PIAYA [id number] 07:27:00 Test Item Value Reference Range Comments MAGNESIUM (BEAKER) (test code = 627) 1.3 mg/dL 1.6-2.6 Network Support Administrator ID - ADDIE LB-TYPE NATRIURETIC FACTOR (BNP)2020-01-21 07:17:00 Test Item Value Reference Range Comments B-TYPE NATRIURETIC PEPTIDE (BEAKER) (test code = 1285 pg/mL 0-100 700) Network Support Administrator ID Salvador REAL LCBC (HEMOGRAM ONLY)2020-01-21 06:56:00 Test Item Value Reference Range Comments WHITE BLOOD CELL COUNT (BEAKER) (test code = 8.6 K/ L 3.5 -10.5 775) RED BLOOD CELL COUNT (BEAKER) (test code = 761) 5.05 M/ L 4.63-6.08 HEMOGLOBIN (BEAKER) (test code = 410) 15.6 GM/DL 13.7-17.5 HEMATOCRIT (BEAKER) (test code = 411) 45.5 % 40.1-51.0 MEAN CORPUSCULAR VOLUME (BEAKER) (test code = 90.1 fL 79 .0-92.2 753) MEAN CORPUSCULAR HEMOGLOBIN (BEAKER) (test code 30.9 pg 25.7-32.2 = 751) MEAN CORPUSCULAR HEMOGLOBIN CONC (BEAKER) (test 34.3 GM/DL 32.3-36.5 code = 752) RED CELL DISTRIBUTION WIDTH (BEAKER) (test code 13.0 % 11.6-14.4 = 412) PLATELET COUNT (BEAKER) (test code = 756) 238 K/CU MM 150-45 0 MEAN PLATELET VOLUME (BEAKER) (test code = 754) 9.7 fL 9.4-12.4 NUCLEATED RED BLOOD CELLS (BEAKER) (test code = 0 /100 WBC 0-0 413) POCT-GLUCOSE [id number] 00:24:00 Test Item Value Reference Range Comments POC-GLUCOSE METER (BEAKER) 177 mg/dL 70-110 : HANNAH MCCARTNEY AT [address] (test code = 1538) [facility], [address]: Network Support Administrator/Technic ignacio ID = [id number] for KAYLEE BASILIO POCT-GLUCOSE [id number] 16:47:00 Test Item Value Reference Range Comments POC-GLUCOSE METER (BEAKER) 124 mg/dL 70-110 : HANNAH SHERRILL AT [address] (test code = 1538) [facility], [address]: Network Support Administrator/Technic ignacio ID = [id number] for RONALDO Felton, KASEY POCT-GLUCOSE [id number] 12:47:00 Test Item Value Reference Range Comments POC-GLUCOSE METER (BEAKER) 137 mg/dL 70-110 : HANNAH SHERRILL AT [address] (test code = 1538) [facility], [address]: Network Support Administrator/Technic ignacio ID = [id number] for RONALDO Felton, KASEY POCT-GLUCOSE [id number] 09:32:00 Test Item Value Reference Range Comments POC-GLUCOSE METER (BEAKER) 174 mg/dL 70-110 : HANNAH SHERRILL AT [address] (test code = 1538) [facility], [address]: Network Support Administrator/Technic ignacio ID = [id number] for RONALDO Felton, KASEY BASIC METABOLIC [id number] 06:36:00 Test Item Value Reference Range Comments SODIUM (BEAKER) (test code = 137 meq/L 136-145 381) POTASSIUM (BEAKER) (test 3.2 meq/L 3.5-5.1 code = 379) CHLORIDE (BEAKER) (test code 99 meq/L 98-107 = 382) CO2 (BEAKER) (test code = 27 meq/L 22-29 355) BLOOD UREA NITROGEN (BEAKER) 27 mg/dL 7-21 (test code = 354) CREATININE (BEAKER) (test 0.80 mg/dL 0.57-1.25 code = 358) GLUCOSE RANDOM (BEAKER) 161 mg/dL 70-105 (test code = 652) CALCIUM (BEAKER) (test code 9.6 mg/dL 8.4-10.2 = 697) EGFR (BEAKER) (test code = INSUF FICIENT CLINICAL DATA TO 1092) CALCULATE ESTIMA SHERRILL GFR. Network Support Administrator ID - ADDIE [id number] 06:30:00 Test Item Value Reference Range Comments MAGNESIUM (BEAKER) (test code = 627) 1.1 mg/dL 1.6-2.6 Network Support Administrator ID Salvador REAL LCBC (HEMOGRAM ONLY)2020-01-20 06:05:00 Test Item Value Reference Range Comments WHITE BLOOD CELL COUNT (BEAKER) (test code = 8.5 K/ L 3.5 -10.5 775) RED BLOOD CELL COUNT (BEAKER) (test code = 761) 4.53 M/ L 4.63-6.08 HEMOGLOBIN (BEAKER) (test code = 410) 14.0 GM/DL 13.7-17.5 HEMATOCRIT (BEAKER) (test code = 411) 40.7 % 40.1-51.0 MEAN CORPUSCULAR VOLUME (BEAKER) (test code = 89.8 fL 79 .0-92.2 753) MEAN CORPUSCULAR HEMOGLOBIN (BEAKER) (test code 30.9 pg 25.7-32.2 = 751) MEAN CORPUSCULAR HEMOGLOBIN CONC (BEAKER) (test 34.4 GM/DL 32.3-36.5 code = 752) RED CELL DISTRIBUTION WIDTH (BEAKER) (test code 12.8 % 11.6-14.4 = 412) PLATELET COUNT (BEAKER) (test code = 756) 242 K/CU MM 150-45 0 MEAN PLATELET VOLUME (BEAKER) (test code = 754) 10.0 fL 9.4-12.4 NUCLEATED RED BLOOD CELLS (BEAKER) (test code = 0 /100 WBC 0-0 413) POCT-GLUCOSE [id number] 22:41:00 Test Item Value Reference Range Comments POC-GLUCOSE METER (BEAKER) 219 mg/dL 70-110 : HANNAH SHERRILL AT [facility] [address] [facility] (test code = 1538) [facility], [address]: Network Support Administrator/Technic ignacio ID = [id number] for RA BREONNA CASTILLO POCT-GLUCOSE [id number] 16:58:00 Test Item Value Reference Range Comments POC-GLUCOSE METER (BEAKER) 158 mg/dL 70-110 : HANNAH SHERRILL AT [place] [id number] [facility] (test code = 1538) [facility], [address]: Network Support Administrator/Technic ignacio ID = [id number] for AGATHADIAMOND Raines POCT-GLUCOSE [id number] 13:12:00 Test Item Value Reference Range Comments POC-GLUCOSE METER (BEAKER) 195 mg/dL 70-110 : HANNAH SHERRILL AT [place] [id number] [facility] (test code = 1538) [facility], [address]: Network Support Administrator/Technic ignacio ID = [id number] for KASEY VINES POCT-GLUCOSE [id number] 07:39:00 Test Item Value Reference Range Comments POC-GLUCOSE METER (BEAKER) 237 mg/dL 70-110 : HANNAH SHERRILL AT [facility] [address] (test code = 1538) [facility], [address]: Network Support Administrator/Technic ignacio ID = [id number] for KASEY VINES BASIC METABOLIC [id number] 06:16:00 Test Item Value Reference Range Comments SODIUM (BEAKER) (test code = 136 meq/L 136-145 381) POTASSIUM (BEAKER) (test 3.6 meq/L 3.5-5.1 code = 379) CHLORIDE (BEAKER) (test code 101 meq/L 98-107 = 382) CO2 (BEAKER) (test code = 25 meq/L 22-29 355) BLOOD UREA NITROGEN (BEAKER) 32 mg/dL 7-21 (test code = 354) CREATININE (BEAKER) (test 1.08 mg/dL 0.57-1.25 code = 358) GLUCOSE RANDOM (BEAKER) 261 mg/dL 70-105 (test code = 652) CALCIUM (BEAKER) (test code 8.8 mg/dL 8.4-10.2 = 697) EGFR (BEAKER) (test code = INSUF FICIENT CLINICAL DATA TO 1092) CALCULATE ESTIMA SHERRILL GFR. Network Support Administrator ID - NOLBERTO [id number] 06:14:00 Test Item Value Reference Range Comments MAGNESIUM (BEAKER) (test code = 627) 1.2 mg/dL 1.6-2.6 Network Support Administrator ID - NOLBERTO MTSH/FREE T4 IF [id number] 06:13:00 Test Item Value Reference Range Comments THYROID STIMULATING HORMONE (BEAKER) (test code 0.71 uIU/mL 0.35-4.94 = 772) Network Support Administrator ID - DBB-TYPE NATRIURETIC FACTOR (BNP)2020-01-19 05:43:00 Test Item Value Reference Range Comments B-TYPE NATRIURETIC PEPTIDE (BEAKER) (test code = 2649 pg/mL 0-100 700) Network Support Administrator ID - NOLBERTO MCBC (HEMOGRAM ONLY)2020-01-19 05:41:00 Test Item Value Reference Range Comments WHITE BLOOD CELL COUNT (BEAKER) (test code = 9.5 K/ L 3.5 -10.5 775) RED BLOOD CELL COUNT (BEAKER) (test code = 761) 4.29 M/ L 4.63-6.08 HEMOGLOBIN (BEAKER) (test code = 410) 13.3 GM/DL 13.7-17.5 HEMATOCRIT (BEAKER) (test code = 411) 39.2 % 40.1-51.0 MEAN CORPUSCULAR VOLUME (BEAKER) (test code = 91.4 fL 79 .0-92.2 753) MEAN CORPUSCULAR HEMOGLOBIN (BEAKER) (test code 31.0 pg 25.7-32.2 = 751) MEAN CORPUSCULAR HEMOGLOBIN CONC (BEAKER) (test 33.9 GM/DL 32.3-36.5 code = 752) RED CELL DISTRIBUTION WIDTH (BEAKER) (test code 13.0 % 11.6-14.4 = 412) PLATELET COUNT (BEAKER) (test code = 756) 224 K/CU MM 150-45 0 MEAN PLATELET VOLUME (BEAKER) (test code = 754) 10.4 fL 9.4-12.4 NUCLEATED RED BLOOD CELLS (BEAKER) (test code = 0 /100 WBC 0-0 413) POCT-GLUCOSE [id number] 23:12:00 Test Item Value Reference Range Comments POC-GLUCOSE METER (BEAKER) 265 mg/dL 70-110 : HANNAH SHERRILL AT [address] (test code = 1538) [facility], [address]: Network Support Administrator/Technic ignacio ID = [id number] for ANNA, BREONNA POCT-GLUCOSE [id number] 17:14:00 Test Item Value Reference Range Comments POC-GLUCOSE METER (BEAKER) 250 mg/dL 70-110 : HANNAH SHERRILL AT [address] (test code = 1538) [facility], [address]: Network Support Administrator/Technic ignacio ID = [id number] for RA TYQUE L POCT-GLUCOSE [id number] 13:31:00 Test Item Value Reference Range Comments POC-GLUCOSE METER (BEAKER) 306 mg/dL 70-110 : Not ified RN/MD: TESTED AT (test code = 1538) [address] [facility], [address]: Network Support Administrator/ Test Architect ID = [id number] for ZABRINA CRAWFORD [id number] 13:06:00 Test Item Value Reference Range Comments MAGNESIUM (BEAKER) (test code = 1.6 mg/dL 1.6-2.6 Specimen slightly hemolyzed 627) Network Support Administrator ID - CASS MPOCT-GLUCOSE [id number] 12:56:00 Test Item Value Reference Range Comments POC-GLUCOSE METER (BEAKER) 267 mg/dL 70-110 : HANNAH SHERRILL AT [facility] [address] [facility] (test code = 1538[facility], [address]: Network Support Administrator/Technic ignacio ID = [id number] for Milton BRIDGESSTE RESPIRATORY PANEL [id number] 10:14:00 Test Item Value Reference Range Comments HUMAN METAPNEUMOVIRUS (BEAKER) (test Not detected Not detecte d, Equivocal code = 2683) RHINOVIRUS (BEAKER) (test code = 2684) Not detected Not detec sherrill, Equivocal INFLUENZA A (BEAKER) (test code = 2685) Not detected Not dete cted, Equivocal INFLUENZA A (NO SUBTYPE) (test code = 3606) INFLUENZA A SUBTYPE H1 (BEAKER) (test code = 2686) INFLUENZA A SUBTYPE H3 (BEAKER) (test code = 2687) INFLUENZA A SUBTYPE H1-2009 (BEAKER) (test code = 3198) INFLUENZA B (BEAKER) (test code = 2688) Not detected Not dete cted, Equivocal RESPIRATORY SYNCYTIAL VIRUS (BEAKER) Not detected Not detecte d, Equivocal (test code = 3199) PARAINFLUENZA VIRUS 1 (BEAKER) (test Not detected Not detecte d, Equivocal code = 2691) PARAINFLUENZA VIRUS 2 (BEAKER) (test Not detected Not detecte d, Equivocal code = 2692) PARAINFLUENZA VIRUS 3 (BEAKER) (test Not detected Not detecte d, Equivocal code = 2693) PARAINFLUENZA VIRUS 4 (BEAKER) (test Not detected Not detecte d, Equivocal code = 3200) ADENOVIRUS (BEAKER) (test code = 2694) Not detected Not detec sherrill, Equivocal CORONAVIRUS 229E (BEAKER) (test code = Not detected Not detec sherrill, Equivocal 3201) CORONAVIRUS HKU1 (BEAKER) (test code = Not detected Not detec sherrill, Equivocal 3202) CORONAVIRUS NL63 (BEAKER) (test code = Not detected Not detec sherrill, Equivocal 3203) CORONAVIRUS OC43 (BEAKER) (test code = Not detected Not detec sherrill, Equivocal 3204) BORDETELLA PERTUSSIS (BEAKER) (test Not detected Not detected , Equivocal code = 3205) CHLAMYDOPHILA PNEUMONIAE (BEAKER) (test Not detected Not dete cted, Equivocal code = 3206) MYCOPLASMA PNEUMONIAE (BEAKER) (test Not detected Not detecte d, Equivocal code = 3207) Other viruses and bacteria not targeted by this PCR panel cannot be excluded; therefore clinical correlation and follow up of serology, culture results, and other molecular studies is required. The results are not intended to be used as the sole means for clinical diagnosis or patient management decisions. This sample was tested at the [facility] Molecular Diagnostics Laboratory using the GigaPanArray Respiratory Panel. It is FDA cleared and has been verified and approved by the [facility] Molecular Diagnostics Laboratory for clinical use on nasopharyngeal swab specimens.The performance of the FilmArrayRP has not been established in individuals who received influenza vaccine. Recent administration ofa nasal influenza vaccine may cause false positive results for Influenza A and/orInfluenza B.POCT-GLUCOSE [id number] 09:44:00 Test Item Value Reference Range Comments POC-GLUCOSE METER (BEAKER) 281 mg/dL 70-110 : HANNAH SHERRILL AT [facility] [address] [facility] (test code = 1538) [facility], [address]: Network Support Administrator/Technic ignacio ID = [id number] for Milton BRIDGES TROPONIN [id number] 09:35:00 Test Item Value Reference Range Comments TROPONIN I (BEAKER) (test code = 397) 0.10 ng/mL 0.00-0.03 Troponin I (TnI) levels must be interpreted in the context of the presenting symptoms and the clinical findings. Elevated TnI levels indicate myocardial damage, but are not specific for ischemic heart disease. Elevated TnI levels are seen in patients with other cardiac conditions (including myocarditis and congestive heart failure), and slight TnI elevations occur in patients with other conditions, including sepsis, renal failure, acidosis, acute neurological disease, and persistent tachyarrhythmia.Network Support Administrator ID - CASS MHEMOGLOBIN A1C 2020-01-18 08:46:00 Test Item Value Reference Range Comments HEMOGLOBIN A1C (ROBBY) (test code = 368) 13.6 % 4.3-6. 1 RAD, CHEST, 1 VIEW, NON [id number] 06:51:00Reason for exam:->CHFShould this be performed at the bedside?->YesFINAL REPORT RAD, CHEST, 1 VIEW, NON DEPT INDICATION: CHF COMPARISON: None FINDINGS: Portable frontal view of the chest. IMPRESSION: Support Lines: A dual-lead AICD apparatus overlies left chest with leads in expected regions of the left atrium and left ventricle. Lungs and pleura: There are diffuse interstitial opacities with central hilar airspace opacification favored to reflect edema. Atypical infection could have a similar appearance. No overt airspace consolidation. No sizable pleural effusion. No pneumothorax.Heart and mediastinum: Stable contours. Additional findings: None. Signed: Christa Coley [facility] ([place], [place]) Verified Date/Time: 01/18/2020 06:51:28 TROPONIN [id number] 00:24:00 Test Item Value Reference Range Comments TROPONIN I (ROBBY) (test code = 397) 0.20 ng/mL 0.00-0.03 Troponin I (TnI) levels must be interpreted in the context of the presenting symptoms and the clinical findings. Elevated TnI levels indicate myocardial damage, but are not specific for ischemic heart disease. Elevated TnI levels are seen in patients with other cardiac conditions (including myocarditis and congestive heart failure), and slight TnI elevations occur in patients with other conditions, including sepsis, renal failure, acidosis, acute neurological disease, and persistent tachyarrhythmia.Network Support Administrator ID - BSB-TYPE NATRIURETIC FACTOR (BNP)2020-01-18 00:15:00 Test Item Value Reference Range Comments B-TYPE NATRIURETIC PEPTIDE (BEAKER) (test code = 2998 pg/mL 0-100 700) Network Support Administrator ID - BSBASIC METABOLIC [id number] 00:14:00 Test Item Value Reference Range Comments SODIUM (BEAKER) (test code = 132 meq/L 136-145 381) POTASSIUM (BEAKER) (test 4.0 meq/L 3.5-5.1 Specime n slightly hemolyzed code = 379) CHLORIDE (BEAKER) (test code 104 meq/L 98-107 = 382) CO2 (BEAKER) (test code = 17 meq/L 22-29 355) BLOOD UREA NITROGEN (BEAKER) 33 mg/dL 7-21 (test code = 354) CREATININE (BEAKER) (test 1.34 mg/dL 0.57-1.25 Specim en slightly hemolyzed code = 358) GLUCOSE RANDOM (BEAKER) 264 mg/dL 70-105 (test code = 652) CALCIUM (BEAKER) (test code 8.8 mg/dL 8.4-10.2 = 697) EGFR (BEAKER) (test code = INSUF FICIENT CLINICAL DATA TO 1092) CALCULATE ESTIMA SHERRILL GFR. Network Support Administrator ID - [id number] 00:07:00 Test Item Value Reference Range Comments MAGNESIUM (BEAKER) (test code = 1.1 mg/dL 1.6-2.6 Specimen slightly hemolyzed 627) Network Support Administrator ID - [id number] 00:07:00 Test Item Value Reference Range Comments PHOSPHORUS (BEAKER) (test code 4.7 mg/dL 2.3-4.7 S pecimen slightly hemolyzed = 604) Network Support Administrator ID - BSLIPID [id number] 00:07:00 Test Item Value Reference Range Comments TRIGLYCERIDES (BEAKER) (test 82 mg/dL Spe cimen slightly hemolyzed code = 540) CHOLESTEROL (BEAKER) (test code 118 mg/dL Specimen slightly hemolyzed = 631) HDL CHOLESTEROL (BEAKER) (test 42 mg/dL code = 976) LDL CHOLESTEROL CALCULATED 60 mg/dL (BEAKER) (test code = 633) Triglyceride Reference Range: Low Risk <150 Borderline 150-199 High Risk 200-499 Very High Risk >=500Cholesterol Reference Range: Low Risk <200 Borderline 200-239 High Risk >240HDL Cholesterol Reference Range: Low Risk >=60 High Risk <40LDL Cholesterol Reference Range: Optimal <100 Near Optimal 100-129 Borderline 130-159 High 160-189 Very High >=190 Network Support Administrator ID - [id number] 23:50:00 Test Item Value Reference Range Comments PROTIME (BEAKER) (test code = 759) 14.9 seconds 11.9-14.2 INR (BEAKER) (test code = 370) 1.2 <=5.9 PARTIAL THROMBOPLASTIN TIME (BEAKER) (test code 31.5 seconds 22.5-36.0 = 760) Effective 04/21/2019: PT Reference Range ChangeNew: 11.9-14.2 Previous: 11.7- 14.7RECOMMENDED COUMADIN/WARFARIN INR THERAPY RANGESSTANDARD DOSE: 2.0-3.0 Includes: PROPHYLAXIS for venous thrombosis, systemic embolization; TREATMENT for venous thrombosis and/or pulmonary embolus.HIGH RISK: Target INR is2.5-3.5 for patients wiht mechanical heart valves.CBC W/PLT COUNT & AUTO [id number] 23:42:00 Test Item Value Reference Range Comments WHITE BLOOD CELL COUNT (BEAKER) (test code = 11.4 K/ L 3.5 -10.5 775) RED BLOOD CELL COUNT (BEAKER) (test code = 761) 4.24 M/ L 4.63-6.08 HEMOGLOBIN (BEAKER) (test code = 410) 13.4 GM/DL 13.7-17.5 HEMATOCRIT (BEAKER) (test code = 411) 38.9 % 40.1-51.0 MEAN CORPUSCULAR VOLUME (BEAKER) (test code = 91.7 fL 79 .0-92.2 753) MEAN CORPUSCULAR HEMOGLOBIN (BEAKER) (test code 31.6 pg 25.7-32.2 = 751) MEAN CORPUSCULAR HEMOGLOBIN CONC (BEAKER) (test 34.4 GM/DL 32.3-36.5 code = 752) RED CELL DISTRIBUTION WIDTH (BEAKER) (test code 12.9 % 11.6-14.4 = 412) PLATELET COUNT (BEAKER) (test code = 756) 248 K/CU MM 150-45 0 MEAN PLATELET VOLUME (BEAKER) (test code = 754) 9.9 fL 9.4-12.4 NUCLEATED RED BLOOD CELLS (BEAKER) (test code = 0 /100 WBC 0-0 413) NEUTROPHILS RELATIVE PERCENT (BEAKER) (test code 52 % = 429) LYMPHOCYTES RELATIVE PERCENT (BEAKER) (test code 38 % = 430) MONOCYTES RELATIVE PERCENT (BEAKER) (test code = 6 % 431) EOSINOPHILS RELATIVE PERCENT (BEAKER) (test code 2 % = 432) BASOPHILS RELATIVE PERCENT (BEAKER) (test code = 1 % 437) NEUTROPHILS ABSOLUTE COUNT (BEAKER) (test code = 5.93 K/ L 1.78-5.38 670) LYMPHOCYTES ABSOLUTE COUNT (BEAKER) (test code = 4.35 K/ L 1.32-3.57 414) MONOCYTES ABSOLUTE COUNT (BEAKER) (test code = 0.67 K/ L 0 .30-0.82 415) EOSINOPHILS ABSOLUTE COUNT (BEAKER) (test code = 0.27 K/ L 0.04-0.54 416) BASOPHILS ABSOLUTE COUNT (BEAKER) (test code = 0.12 K/ L 0 .01-0.08 417) IMMATURE GRANULOCYTES-RELATIVE PERCENT (BEAKER) 0 % 0-1 (test code = 2801)
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
--- NOTE | 2020-02-29 11:34 | EDPHYS ---
Physician Documentation [facility] Name: Nikos Corona Age: 54 yrs Sex: Male : 1965 Arrival Date: 02/29/2020 Time: 10:01 Bed 5 Private MD: NATALIA Physician Chris Neumann HPI: 02/28 10:13 This 54 yrs old Male presents to ER via Wheelchair with complaints of sebastien Shortness Of Breath. 10:13 The patient has shortness of breath at rest. Onset: The symptoms/episode began/occurred sebastien 3 day(s) ago. Duration: The symptoms are continuous, and are steadily getting worse. The patient's shortness of breath is aggravated by coughing, exertion, light activity. The patient or guardian reports chest pain that is located primarily in the anterior chest wall. Onset: 3 day(s) ago. The patient or guardian reports cough, that is intermittent. Modifying factors: The symptoms are alleviated by changing position, OTC meds, remaining still, the symptoms are aggravated by activity, lying flat. The patient presents with pain that is acute, with no known mechanism of injury, and decreased range of motion. The symptoms are located in the left scapular area, right scapular area, left subscapular area and right subscapular area. Historical: - Allergies: 10:09 Rifampin; ss 10:09 Sulfa (Sulfonamide Antibiotics); ss - PMHx: 10:09 Anxiety; Myocardial infarction; neuropathy; osteomyelitis; PTSD; PVD; Hypertension; ss Hyperlipidemia; DVT; Diabetes - NIDDM; CHF; CAD; - PSHx: 10:09 Cholecystectomy; tibia and femur surgery; Heart stents; ss - Immunization history:: Adult Immunizations up to date. - Social history:: Smoking status: Patient reports the use of cigarette tobacco products, smokes one-half pack cigarettes per day. ROS: 10:14 Eyes: Negative for injury, pain, redness, and discharge, ENT: Negative for injury, sebastien pain, and discharge, Neck: Negative for injury, pain, and swelling, Cardiovascular: Negative for chest pain, palpitations, and edema, Abdomen/GI: Negative for abdominal pain, nausea, vomiting, diarrhea, and constipation, : Negative for injury, bleeding, discharge, and swelling, MS/Extremity: Negative for injury and deformity, Skin: Negative for injury, rash, and discoloration, Neuro: Negative for headache, weakness, numbness, tingling, and seizure, Psych: Negative for depression, anxiety, suicide ideation, homicidal ideation, and hallucinations, Allergy/Immunology: Negative for hives, rash, and allergies, Endocrine: Negative for neck swelling, polydipsia, polyuria, polyphagia, and marked weight changes, Hematologic/Lymphatic: Negative for swollen nodes, abnormal bleeding, and unusual bruising. 10:14 Constitutional: Positive for fatigue, malaise. 10:14 Respiratory: Positive for cough, shortness of breath. Exam: 10:14 Constitutional: This is a well developed, well nourished patient who is awake, alert, sebastien and in no acute distress. Head/Face: Normocephalic, atraumatic. Eyes: Pupils equal round and reactive to light, extra-ocular motions intact. Lids and lashes normal. Conjunctiva and sclera are non-icteric and not injected. Cornea within normal limits. Periorbital areas with no swelling, redness, or edema. ENT: Nares patent. No nasal discharge, no septal abnormalities noted. Tympanic membranes are normal and external auditory canals are clear. Oropharynx with no redness, swelling, or masses, exudates, or evidence of obstruction, uvula midline. Mucous membranes moist. Neck: Trachea midline, no thyromegaly or masses palpated, and no cervical lymphadenopathy. Supple, full range of motion without nuchal rigidity, or vertebral point tenderness. No Meningismus. Chest/axilla: Normal chest wall appearance and motion. Nontender with no deformity. No lesions are appreciated. Cardiovascular: Regular rate and rhythm with a normal S1 and S2. No gallops, murmurs, or rubs. Normal PMI, no JVD. No pulse deficits. Abdomen/GI: Soft, non-tender, with normal bowel sounds. No distension or tympany. No guarding or rebound. No evidence of tenderness throughout. Male : Normal genitalia with no discharge or lesions. Skin: Warm, dry with normal turgor. Normal color with no rashes, no lesions, and no evidence of cellulitis. MS/ Extremity: Pulses equal, no cyanosis. Neurovascular intact. Full, normal range of motion. Neuro: Awake and alert, GCS 15, oriented to person, place, time, and situation. Cranial nerves II-XII grossly intact. Motor strength 5/5 in all extremities. Sensory grossly intact. Cerebellar exam normal. Normal gait. Psych: Awake, alert, with orientation to person, place and time. Behavior, mood, and affect are within normal limits. 10:14 Respiratory: the patient does not display signs of respiratory distress, Respirations: no acute changes, labored breathing, Breath sounds: decreased breath sounds, rhonchi, that are mild, are scattered, stridor, is not appreciated, Respiratory rate: 17 Vital Signs: 10:06 BP 106 / 82; Pulse 106; Resp 17; Temp 98.7(TE); Pulse Ox 96% on R/A; Weight 115.67 kg; ss Height 6 ft. 1 in. (185.42 cm); Pain 10/10; 11:15 Pulse Ox 92% on R/A; mh5 11:16 BP 95 / 73; Pulse 84; Resp 18; Pulse Ox 91% on R/A; ph 12:30 BP 109 / 96; Pulse 87; Resp 18; Pulse Ox 96% on 2 lpm NC; ph 13:41 BP 113 / 91; Pulse 96; Resp 18; Temp 97.9; Pulse Ox 95% on 2 lpm NC; ph 14:45 BP 110 / 87; Pulse 89; Resp 20; Temp 97.9; Pulse Ox 95% on R/A; ph 10:06 Body Mass Index 33.64 (115.67 kg, 185.42 cm) ss MDM: 10:03 Patient medically screened. [facility] 10:16 Data reviewed: vital signs, nurses notes, lab test result(s), EKG, radiologic studies, [facility] CT scan, plain films. 02/28 10:10 Order name: Basic Metabolic Panel sebastien 02/28 10:10 Order name: CBC with Diff 02/28 10:10 Order name: LFT's 02/28 10:10 Order name: Magnesium sebastien 02/28 10:10 Order name: NT PRO-BNP 02/28 10:10 Order name: PT-INR [facility] 02/28 10:10 Order name: Troponin (emerg Dept Use Only) [facility] 02/28 10:10 Order name: Blood Culture Adult (2) 02/28 10:10 Order name: Lipase; Complete Time: 11:41 02/28 10:10 Order name: Urine Culture [facility] 02/28 10:10 Order name: Strep; Complete Time: 11:21 [facility] 02/28 10:10 Order name: Influenza Screen (a \T\ B); Complete Time: 11:33 [facility] 02/28 10:10 Order name: COVID-19; Complete Time: 13:42 [facility] 02/28 10:12 Order name: Basic Metabolic Panel; Complete Time: 11:41 [facility] 02/28 10:10 Order name: XRAY Chest (1 view); Complete Time: 13:42 [facility] 02/28 10:10 Order name: CT Aorta for Dissection [facility] 02/28 10:12 Order name: CBC with Automated Diff; Complete Time: 11:21 [facility] 02/28 10:12 Order name: Liver (Hepatic) Function; Complete Time: 11:41 [facility] 02/28 10:12 Order name: Magnesium; Complete Time: 11:41 [facility] 02/28 10:12 Order name: NT PRO-BNP; Complete Time: 11:41 [facility] 02/28 10:12 Order name: Protime (+INR); Complete Time: 11:21 [facility] 02/28 10:12 Order name: Troponin (Emerg Dept Use Only); Complete Time: 11:41 [facility] 02/28 10:12 Order name: Blood Culture [facility] 02/28 11:18 Order name: Throat Culture [facility] 02/28 11:57 Order name: BIPAP [facility] 02/28 12:29 Order name: UA; Complete Time: 13:42 02/28 12:56 Order name: Thyroid Stimulating Hormone [facility] 02/28 12:56 Order name: Magnesium [facility] 02/28 10:10 Order name: EKG; Complete Time: 10:13 [facility] 02/28 10:10 Order name: Cardiac monitoring; Complete Time: 11:12 [facility] 02/28 10:10 Order name: EKG - Nurse/Tech; Complete Time: 11:13 [facility] 02/28 10:10 Order name: IV Saline Lock; Complete Time: 11:13 [facility] 02/28 10:10 Order name: Labs collected and sent; Complete Time: 11:13 [facility] 02/28 10:10 Order name: O2 Per Protocol; Complete Time: 11:13 [facility] 02/28 10:10 Order name: O2 Sat Monitoring; Complete Time: 11:13 [facility] 02/28 11:57 Order name: Bilateral blood pressure; Complete Time: 19:48 sebastien Administered Medications: Discontinued: NS 0.9% 1000 ml IV at 1 bolus Per protocol; 1000 mL bolus 10:55 Drug: NS 0.9% 1000 ml Route: IV; Rate: 1 bolus; Site: right upper arm; ph 11:29 Follow up: Response: No adverse reaction; IV Status: Order to discontinue infusion ph 10:55 Drug: SOLU-Medrol 125 mg Route: IVP; Site: right upper arm; ph 19:47 Follow up: Response: No adverse reaction ph 10:55 Drug: Rocephin 1 grams Route: IV; Rate: per protocol; Site: right upper arm; ph 19:46 Follow up: Response: No adverse reaction; IV Status: Completed infusion ph 10:56 Drug: Zofran (Ondansetron) 4 mg Route: IVP; Site: right upper arm; ph 12:30 Follow up: Response: No adverse reaction ph 10:58 Drug: morphine 4 mg Route: IVP; Site: right upper arm; ph 12:30 Follow up: Response: No adverse reaction ph 11:00 Drug: Zithromax 500 mg Route: IVPB; Infused Over: 1 hrs; Site: right upper arm; ph 12:00 Follow up: Response: No adverse reaction; IV Status: Completed infusion ph 11:00 Drug: Albuterol HFA Inhaler 2 puffs Route: Inhalation; ph 12:00 Follow up: Response: No adverse reaction ph 12:30 Drug: Lasix 20 mg Route: IVP; Site: right upper arm; ph 14:00 Follow up: Urine output 750 ml; Response: No adverse reaction ph 12:31 Drug: Magnesium Sulfate 1 grams Route: IVPB; Infused Over: 1 hrs; Site: right upper arm;ph 13:30 Follow up: Response: No adverse reaction; IV Status: Completed infusion ph 12:31 Drug: Potassium Effervescent Tablet 50 mEq Route: PO; ph 13:00 Follow up: Response: No adverse reaction ph Disposition: 02/29/20 11:33 Hospitalization ordered by Luzma Jarrell for Inpatient Admission. Preliminary diagnosis are Dyspnea, Unspecified combined systolic (congestive) and diastolic (congestive) heart failure, Hypoxemia, Hypokalemia, Hypomagnesemia. - Bed requested for Telemetry/MedSurg (Inpatient). - Status is Inpatient Admission. ph - Condition is Fair. - Problem is new. - Symptoms have improved. Signatures: Dispatcher [employer] EDMS Chrissy Lazcano Chris Ray MD MD cha Smirch, Shelby, RN RN Carol Carias RN RN ph Corrections: (The following items were deleted from the chart) 11:42 11:33 Hospitalization Ordered by Luzma Jarrell MD for Inpatient Admission. Preliminary sebastien diagnosis is Dyspnea; Unspecified combined systolic (congestive) and diastolic (congestive) heart failure; Hypoxemia. Bed requested for Telemetry/MedSurg (Inpatient). Status is Inpatient Admission. Condition is Fair. Problem is new. Symptoms have improved. sebastien 13:25 11:42 02/29/2020 11:33 Hospitalization Ordered by Luzma Jarrell MD for Inpatient bd Admission. Preliminary diagnosis is Dyspnea; Unspecified combined systolic (congestive) and diastolic (congestive) heart failure; Hypoxemia; Hypokalemia; Hypomagnesemia. Bed requested for Telemetry/MedSurg (Inpatient). Status is Inpatient Admission. Condition is Fair. Problem is new. Symptoms have improved. sebastien 15:23 13:25 02/29/2020 11:33 Hospitalization Ordered by Luzma Jarrell MD for Inpatient ph Admission. Preliminary diagnosis is Dyspnea; Unspecified combined systolic (congestive) and diastolic (congestive) heart failure; Hypoxemia; Hypokalemia; Hypomagnesemia. Bed requested for Telemetry/MedSurg (Inpatient). Status is Inpatient Admission. Condition is Fair. Problem is new. Symptoms have improved. bd
[2020-02-29] MEDS ORDERED: FUROSEMIDE 20 MG/ 2ML VIAL ONE (11:51)
[2020-02-29] MEDS ORDERED: POTASSIUM 25 MEQ EFFERV TAB ONE (11:52)
[2020-02-29] MEDS ORDERED: MAGNESIUM SULFATE 1 gm IVPB 1 GM/100 ML BAG IV ONE (11:52)
--- NOTE | 2020-02-29 12:17 | RAD REPORT ---
EXAM DESCRIPTION: RAD - Chest Single View - 02/29/2020 11:55 am CLINICAL HISTORY: Cough;Dyspnea COMPARISON: January 12January 08 TECHNIQUE: AP portable chest image was obtained 02/29/2020 11:55 am . FINDINGS: Lung volumes are decreased from prior imaging. Diffusely prominent interstitial pattern pr esent. Vascular engorgement and cardiomegaly seen. Trachea is midline. Left-sided defibrillator remai ns in place. No measurable pleural effusion and no pneumothorax. No acute bony abnormality seen. No a cute aortic findings suspected. IMPRESSION: No focal mass or consolidation. Heart, vasculature and lung markings are all prominent and favor a mild failure/volume overload proce ss.
[2020-02-29 12:43] LABS: Urine Appearance CLEAR; Urine Bilirubin NEGATIVE (NEG); Urine Blood NEGATIVE (NEG); Urine Color YELLOW; Urine Glucose NEGATIVE (NEG); Urine Protein NEGATIVE (NEG); Urine pH 6.5 (5.0-7.0)
[2020-02-29 12:46] LABS: Urine Microscopic Reflex NO UMIC
[2020-02-29] MEDS ORDERED: ACETAMINOPHEN 325 MG TABLET PO PRN (12:49)
[2020-02-29] MEDS ORDERED: FUROSEMIDE 40 MG/4 ML VIAL IV ONE (12:49)
[2020-02-29] MEDS ORDERED: HYDRALAZINE HCL 20 MG/ML VIAL IV PRN (12:49)
[2020-02-29] MEDS ORDERED: POTASSIUM 25 MEQ EFFERV TAB PO ONE (12:49)
[2020-02-29] MEDS ORDERED: ALBUTEROL 2.5 MG/3 ML NEB SOL NEB PRN (12:49)
[2020-02-29] MEDS ORDERED: ONDANSETRON 4 MG/2 ML VIAL IV PRN (12:49)
[2020-02-29] MEDS ORDERED: ALBUTEROL 2.5 MG/3 ML NEB SOL NEB SCH (14:00)
[2020-02-29 15:33] VITALS: BP 113/91; TEMP 97.9; O2SAT 95
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
[2020-02-29] MEDS ORDERED: BACLOFEN 10 MG TAB PO ONE (16:00)
[2020-02-29 16:53] LABS: Magnesium 1.6 mg/dL (1.8-2.4); Thyroid Stimulating Hormone 1.72 uIU/mL (0.360-3.740)
[2020-02-29] MEDS ORDERED: FORMOTEROL IH SCH (21:00)
[2020-02-29] MEDS ORDERED: MOMETASONE IH SCH (21:00)
[2020-02-29] MEDS ORDERED: FAMOTIDINE 20 MG TAB PO SCH (21:00)
[2020-02-29] MEDS ORDERED: BUMETANIDE 1 MG/4 ML VIAL IV SCH (21:00)
[2020-02-29] MEDS ORDERED: DULERA IH SCH (21:00)
[2020-03-01] MEDS ORDERED: PANTOPRAZOLE 40MG TABLET PO SCH (07:30)
[2020-03-01] MEDS ORDERED: CLOPIDOGREL 75 MG TABLET PO SCH (09:00)
[2020-03-01] MEDS ORDERED: ASPIRIN EC 81 MG TAB PO SCH ×2 (09:00)
[2020-03-01] MEDS ORDERED: ENOXAPARIN 40 MG/0.4 ML SQ SCH (09:00)
[2020-03-01] MEDS ORDERED: Magnesium Sulfate 2gm IVPB 2 G/50 ML BAG IV ONE (12:49)
--- NOTE | 2020-03-01 15:55 | EKG ---
Test Date: 2020-02-29 Test Time: 10:58:29 Insurance Processing Clerk: CONNOR MEASUREMENT RESULTS: Intervals: Rate: 81 NC: 254 QRSD: 120 QT: 424 QTc: 492 Griffith: P: 48 NC: 254 QRS: -70 T: 55 INTERPRETIVE STATEMENTS: Sinus rhythm with 1st degree AV block with frequent premature ventricular complexes Left axis deviation Possible Lateral infarct, age undetermined Cannot rule out Inferior infarct, age undetermined Abnormal ECG Compared to ECG 01/02/2020 03:26:42 Ventricular premature complex(es) now present Left-axis deviation now present Intraventricular conduction delay no longer present Myocardial infarct finding still present Electronically Signed On 03-01-20 15:50:52 CDT by Torito Kraus
== END 2020-02-29 15:25 | disposition left against medical advice (07) ==
LOC: ER 09:58 → ERHOLD 12:51
PROVIDERS: ADMIT Internal Medicine; ATTEND Internal Medicine
DX: I11.0 Hypertensive heart disease with heart failure (principal); I50.43 Acute on chronic combined systolic (congestive) and diastolic (congestive) heart failure; Z03.818 Encounter for observation for suspected exposure to other biological agents ruled out; I25.10 Atherosclerotic heart disease of native coronary artery without angina pectoris; I73.9 Peripheral vascular disease, unspecified; E11.9 Type 2 diabetes mellitus without complications; E78.5 Hyperlipidemia, unspecified; G47.30 Sleep apnea, unspecified; F41.9 Anxiety disorder, unspecified; M54.2 Cervicalgia; E66.9 Obesity, unspecified; Z68.33 Body mass index [BMI] 33.0-33.9, adult; F17.210 Nicotine dependence, cigarettes, uncomplicated; Z53.29 Procedure and treatment not carried out because of patient's decision for other reasons; Z95.810 Presence of automatic (implantable) cardiac defibrillator; Z79.82 Long term (current) use of aspirin; Z88.3 Allergy status to other anti-infective agents; Z88.2 Allergy status to sulfonamides
CPT/HCPCS: 36415; 71045; 80048; 80076; 81003; 83690; 83735; 83880; 84443; 84484; 85025; 85610; 87040; 87070; 87081; 87086; 87088; 87804; 93005; 96365; 96366; 96367; 96375; 99284; G0378; J0456; J0696; J1940; J2405; J2930; J3475; J7030; U0001

== ENCOUNTER 2020-05-28 02:41 | Emergency (ER) | payer OTHER ==
--- OUTSIDE RECORDS SUMMARY | 2020-05-28 02:46 | XMS REPORT | Clinical Summary ---
:1965 Author Organization [facility] Address [address] [place] [address] Care Team Providers Name Role Phone Sami Alexander MD Primary Care Provider [phone] Alon Woody Unavailable Allergies Active Allergy Reactions Severity Noted Date Comments Rifampin High 03/17/2017 Other reaction( s): Unknown - See comments Looses muscle c ontrol (Severe Spasms) Sulfa (Sulfonamide High 03/17/2017 Other ang ction(s): Unknown Antibiotics) - See comments Loose control o f muscles (Severe spasms) Medications Medication Sig Dispensed Refills Start End Date Status Date albuterol HFA Inhale 2 puffs by 0 Active (VENTOLIN HFA) 90 mouth via inhaler. 7 mcg/actuation inhaler aspirin 81 MG EC Take 1 tablet (81 30 tablet 0 Active tablet mg total) by mouth 0 daily. clopidogrel Take 1 tablet (75 30 tablet 0 Active (PLAVIX) 75 mg mg total) by mouth 0 tablet daily. pantoprazole Take 1 tablet (40 30 tablet 0 Active (PROTONIX) 40 MG mg total) by mouth 0 tablet daily. spironolactone Take 1 tablet (25 30 tablet 0 Active (ALDACTONE) 25 MG mg total) by mouth 0 tablet daily. atorvastatin Take 1 tablet (80 30 tablet 0 Active (LIPITOR) 80 MG mg total) by mouth 0 tablet nightly. magnesium oxide Take 1 tablet (400 60 tablet 0 Active (MAG-OX) 400 mg mg total) by mouth 0 (241.3 mg 2 (two) times magnesium) tablet daily. potassium chloride Take 1 tablet (20 30 tablet 0 Active SA (K-DUR,KLOR-CON) mEq total) by 0 20 MEQ tablet mouth daily. insulin 70/30, Inject 14 Units 8.4 mL 0 Active insulin NPH-insulin subcutaneously 2 0 regular, (HUMULIN (two) times daily 70/30 U-100 before meals. INSULIN) 100 unit/mL (70-30) injection insulin 60 each by 60 each 0 Active syringe-needle Miscellaneous 0 U-100 1/2 mL 28 route 2 (two) gauge x 1/2" Syrg times daily. carvedilol (COREG) Take 1 tablet 60 tablet 0 Active 3.125 MG tablet (3.125 mg total) 0 by mouth 2 (two) times daily with breakfast and dinner. hydrALAZINE Take 1 tablet (10 90 tablet 0 Active (APRESOLINE) 10 MG mg total) by mouth 0 tablet 3 (three) times daily. bumetanide (BUMEX) Take 1 tablet (2 60 tablet 0 Active 2 MG tablet mg total) by mouth 0 2 (two) times daily. gabapentin Take 900 mg by 0 01/18/20 Disc ontinued (NEURONTIN) 300 MG mouth 3 (three) 8 20 capsule times daily. clopidogrel Take 75 mg by 0 01/21/20 Disc ontinued (PLAVIX) 75 mg mouth. 9 20 tablet furosemide (LASIX) 0 01/21/20 D iscontinued 40 MG tablet 0 20 zolpidem (AMBIEN) Take 10 mg by 0 01/21/20 Discontinued 10 mg tablet mouth. 8 20 spironolactone 0 01/21/20 Disco ntinued (ALDACTONE) 25 MG 0 20 tablet nitroglycerin 0 01/21/20 Discon tinued (NITROSTAT) 0.4 MG 0 20 SL tablet HYDROcodone-acetami TAKE 1 TABLET BY 0 Discontinued nophen (NORCO MOUTH FOUR TIMES 0 20 10-325) 10-325 mg DAILY NEEDED per tablet FOR PAIN. CAUTION SEDATION. carvedilol (COREG) 0 01/21/20 D iscontinued 3.125 MG tablet 0 20 pantoprazole 0 01/21/20 Discont inued (PROTONIX) 40 MG 0 20 tablet aspirin 81 MG EC Take 81 mg by 0 01/21/20 Discontinued tablet mouth. 7 20 Active Problems Problem Noted Date Essential hypertension 01/18/2020 Hyperlipidemia 01/18/2020 Type 2 diabetes mellitus 01/18/2020 Acute kidney injury 01/18/2020 Acute on chronic systolic heart failure, NYHA class 4 01/17/2020 Encounters Date Type Specialty Care Team Description 01/18/2020 Travel 01/18/2020 Orders Only General Internal Medicine 01/17/2020 - Hospital Encounter Cardiology Sejal Zuniga Acute on chronic heart failure, unspecified heart failure type (HCC) (Primary Dx); 01/21/2020 MD Meño Type 2 diabetes mellitus treated with insulin (HCC) after 05/28/2019 Social History Tobacco Use Types Packs/Day Years Used Date Current Every Day Smoker 0.5 Smokeless Tobacco: Never Used Sex Assigned at Date Recorded Not on file Job Start Date Occupation Industry Not on file Not on file Not on file Travel History Travel Start Travel End No recent travel history available. Last Filed Vital Signs Vital Sign Reading Time Taken Blood Pressure 104/65 01/21/2020 9:15 AM [facility] Pulse 84 01/21/2020 9:15 AM [facility] [employer] Temperature 36.4 C (97.6 F) 01/21/2020 7:00 AM [facility] Respiratory Rate 18 01/21/2020 7:00 AM [facility] Oxygen Saturation 98% 01/21/2020 7:00 AM [facility] [employer] Inhaled Oxygen Concentration 35% 01/19/2020 4:00 AM [facility] [employer] Weight 114.8 kg (253 lb 1.6 oz) 01/20/2020 5:5 8 AM [facility] [employer] Height 185.4 cm (6' 1") 01/18/2020 12:00 AM [facility] [employer] Body Mass Index 33.39 01/20/2020 5:58 AM [facility] [employer] Plan of Treatment Not on file Procedures Procedure Name Priority Date/Time Associated Comments Diagnosis REPORT OF PROCEDURE - 01/24/2020 11:11 ENDOSCOPY SCAN AM [facility] [employer] RHYTHM STRIP - SCAN 01/24/2020 11:11 AM [facility] [employer] POCT-GLUCOSE METER Routine 01/21/2020 8:24 Resul ts for this AM [employer] procedure are i n the results section. B-TYPE NATRIURETIC Routine 01/21/2020 6:33 Resul ts for this FACTOR (BNP) AM [facility] [employer] procedure are i n the results section. MAGNESIUM Routine 01/21/2020 6:33 Results for this AM [facility] [employer] procedure are i n the results section. CBC (HEMOGRAM ONLY) Routine 01/21/2020 6:33 Resu lts for this AM [employer] procedure are i n the results section. BASIC METABOLIC PANEL Routine 01/21/2020 6:33 Re sults for this (7) AM [facility] [employer] procedure are i n the results section. POCT-GLUCOSE METER Routine 01/21/2020 12:05 Resul ts for this AM [facility] [employer] procedure are i n the results section. PERIPHERAL VASCULAR 01/20/2020 9:24 REPORT - SCAN PM [employer] POCT-GLUCOSE METER Routine 01/20/2020 4:35 Resul ts for this PM [employer] procedure are i n the results section. POCT-GLUCOSE METER Routine 01/20/2020 12:35 Resul ts for this PM [employer] procedure are i n the results section. POCT-GLUCOSE METER Routine 01/20/2020 7:16 Resul ts for this AM [facility] [employer] procedure are i n the results section. MAGNESIUM Routine 01/20/2020 4:59 Results for this AM [facility] [employer] procedure are i n the results section. CBC (HEMOGRAM ONLY) Routine 01/20/2020 4:59 Resu lts for this AM [facility] [employer] procedure are i n the results section. BASIC METABOLIC PANEL Routine 01/20/2020 4:59 Re sults for this (7) AM [facility] [employer] procedure are i n the results section. POCT-GLUCOSE METER Routine 01/19/2020 10:29 Resul ts for this PM [employer] [facility] procedure are i n the results section. POCT-GLUCOSE METER Routine 01/19/2020 4:46 Resul ts for this PM [employer] [facility] [employer] procedure are i n the results section. POCT-GLUCOSE METER Routine 01/19/2020 12:58 Resul ts for this PM [employer] procedure are i n the results section. POCT-GLUCOSE METER Routine 01/19/2020 7:27 Resul ts for this AM [employer] procedure are i n the results section. TSH/FREE T4 IF Routine 01/19/2020 3:46 Results f or this INDICATED AM [employer] procedure are i n the results section. MAGNESIUM Routine 01/19/2020 3:46 Results for this AM [facility] [employer] procedure are i n the results section. CBC (HEMOGRAM ONLY) Routine 01/19/2020 3:46 Resu lts for this AM [facility] [employer] procedure are i n the results section. BASIC METABOLIC PANEL Routine 01/19/2020 3:46 Re sults for this (7) AM [facility] [employer] procedure are i n the results section. B-TYPE NATRIURETIC Routine 01/19/2020 3:46 Resul ts for this FACTOR (BNP) AM [facility] procedure are i n the results section. POCT-GLUCOSE METER Routine 01/18/2020 10:58 Resul ts for this PM [employer] procedure are i n the results section. ECHOCARDIOGRAM REPORT - 01/18/2020 9:22 SCAN PM [employer] VENOUS DOPPLER LEGS Routine 01/18/2020 6:23 Resu lts for this BILATERAL PM [employer] procedure are i n the results section. POCT-GLUCOSE METER Routine 01/18/2020 4:59 Resul ts for this PM [employer] procedure are i n the results section. POCT-GLUCOSE METER Routine 01/18/2020 1:19 Resul ts for this PM [employer] procedure are i n the results section. POCT-GLUCOSE METER Routine 01/18/2020 12:44 Resul ts for this PM [facility] procedure are i n the results section. 2D ECHO W/ DOPPLER NILSA 01/18/2020 12:07 Resul ts for this (CW/PW/COLOR) PM [facility] [employer] procedure are in the results section. POCT-GLUCOSE METER Routine 01/18/2020 9:31 Resul ts for this AM [facility] procedure are i n the results section. MAGNESIUM Add-On 01/18/2020 8:39 Results for this AM [facility] procedure are i n the results section. TROPONIN I Routine 01/18/2020 8:39 Results for this AM [facility] procedure are i n the results section. XR CHEST 1 VIEW Routine 01/18/2020 3:27 Results for this PORTABLE/BEDSIDE AM [facility] procedure a re in the results section. RESPIRATORY PANEL SLHS Routine 01/18/2020 1:29 R esults for this AM [facility] [employer] procedure are i n the results section. ECG 12-LEAD Routine 01/18/2020 12:51 AM [facility] Procedure Note - Interface, External Ris In - 01/18/2020 12:53 AM [facility] Ventricular Rate 94 BPM Atrial Rate 94 BPM P-R Interval 232 ms QRS Duration 120 ms Q-T Interval 392 ms QTC Calculation(Bazett) 490 ms P [place] 55 degrees R [place] -81 degrees T [place] 87 degrees Sinus rhythm with 1st degree A-V block Left anterior fascicular blo ck Possible Anterolateral infar ct , age undetermined Abnormal ECG ECG 12-LEAD Routine 01/18/2020 12:51 AM [facility] [employer] Resu lts for this procedure are i n the results section . CBC W/PLT COUNT & AUTO Routine 01/17/2020 11:24 PM [facility] [employer] Results for this DIFFERENTIAL procedure are i n the results section . LIPID PANEL Routine 01/17/2020 11:24 PM [facility] [employer] Resu lts for this procedure are i n the results section . HEMOGLOBIN A1C Routine 01/17/2020 11:24 PM [facility] [employer] Re sults for this procedure are i n the results section . TROPONIN I Routine 01/17/2020 11:24 PM [facility] Resu lts for this procedure are i n the results section . PT/APTT Routine 01/17/2020 11:24 PM [facility] Resu lts for this procedure are i n the results section . CBC W/PLT COUNT & AUTO Routine 01/17/2020 11:24 PM [facility] [employer] Results for this DIFFERENTIAL procedure are i n the results section . PHOSPHORUS Routine 01/17/2020 11:24 PM [facility] Resu lts for this procedure are i n the results section . B-TYPE NATRIURETIC FACTOR Routine 01/17/2020 11:24 PM [facility] Results for this (BNP) procedure are i n the results section . MAGNESIUM Routine 01/17/2020 11:24 PM [facility] Resu lts for this procedure are i n the results section . BASIC METABOLIC PANEL (7) Routine 01/17/2020 11:24 PM [facility] [employer] Results for this procedure are i n the results section . after 05/28/2019 Results EKG-SCANNED (01/24/2020 11:11 AM [facility]) Narrative Performed At This result has an attachment that is no t available. RHYTHM STRIP - SCAN (01/24/2020 11:11 AM [facility]) Narrative Performed At This result has an attachment that is no t available. POC-Glucose meter (01/21/2020 8:24 AM [facility] [employer])Only the most recent of14 results within the time period is included. POC-Glucose Meter 164 (H)Comment: : TESTED 70 - 110 mg/dL [facility] [address] [facility] [address]: Count Room Clerk/Excel Developer ID = [id number] for [facility] Blood Performing Organization Address City/State/Zipcode Phone Number [facility] [address] [place] [phone] C[address] CBC (Hemogram only) (01/21/2020 6:33 AM [employer])Only the most recent of3 results within the time period is included. WBC 8.6 3.5 - 10.5 K/L [facility] RBC 5.05 4.63 - 6.08 M/L [facility] Hemoglobin 15.6 13.7 - 17.5 GM/DL [facility] Hematocrit 45.5 40.1 - 51.0 % [facility] MCV 90.1 79.0 - 92.2 fL [facility] MCH 30.9 25.7 - 32.2 pg [facility] MCHC 34.3 32.3 - 36.5 GM/DL [facility] RDW 13.0 11.6 - 14.4 % [facility] Platelets 238 150 - 450 K/CU MM [facility] MPV 9.7 9.4 - 12.4 fL [facility] nRBC 0 0 - 0 /100 WBC [facility] Specimen Blood Performing Organization Address City/[facility]/Zipcode Phone Number [address] [address] CENTER B-type Natriuretic Factor (BNP) (01/21/2020 6:33 AM [facility])Only the most recent of 3 resultswithin the time period is included. BNP 1,285 (H) 0 - 100 pg/mL [facility] Specimen Blood Narrative Performed At Count Room Clerk ID - PIAYA L [facility] Performing Organization Address City/[facility]/Zipcode Phone Number [address] [address] CENTER Magnesium (01/21/2020 6:33 AM [facility])Only the most recent of5 resultswithin the time period is included. Magnesium 1.3 (L) 1.6 - 2.6 mg/dL [facility] Specimen Blood Narrative Performed At Count Room Clerk ID - ADDIE L [facility] Performing Organization Address [facility]/Zipcode Phone Number [facility] [address] [place] [address] CENTER Basic Metabolic Panel (01/21/2020 6:33 AM [facility] [employer])Only the most recent of4 results within the time period is included. Sodium 139 136 - 145 meq/L [facility] Potassium 3.8 3.5 - 5.1 meq/L [facility] Chloride 96 (L) 98 - 107 meq/L [facility] CO2 33 (H) 22 - 29 meq/L [facility] BUN 23 (H) 7 - 21 mg/dL [facility] Creatinine 0.92 0.57 - 1.25 mg/dL [facility] Glucose 143 (H) 70 - 105 mg/dL [facility] Calcium 10.4 (H) 8.4 - 10.2 mg/dL [facility] EGFR Comment: INSUFFICIENT CLINICAL C [facility] DATA TO CALCULATE ESTIMATED [facility] GFR. Specimen Blood Narrative Performed At Count Room Clerk ID - ADDIE L [facility] Performing Organization Address City/[facility]/Zipcode Phone Number [facility] [address] [place] [address] CENTER PERIPHERAL VASCULAR REPORT - SCAN (01/20/2020 9:24 PM [facility] [employer]) Narrative Performed At This result has an attachment that is no t available. TSH/Free T4 If Indicated (01/19/2020 3:46 AM [facility]) TSH 0.71 0.35 - 4.94 uIU/mL [facility] Specimen Blood Narrative Performed At Count Room Clerk ID - DB [facility] Performing Organization Address City/State/Zipcode Phone Number [facility] [address] [place] [address] CENTER ECHOCARDIOGRAM REPORT - SCAN (01/18/2020 9:22 PM [facility]) Narrative Performed At This result has an attachment that is no t available. Venous doppler legs bilateral (01/18/2020 6:23 PM [facility] [employer]) [facility] ECHO HEAR TLAB MKCKESSON CPACS Specimen Impressions Performed At Right Impression [facility] ECHO HEARTLAB [facility] CPACS 1. There is no deep venous obstruction in the common femoral, profunda femoral, femoral, popliteal, posterior tibial or peroneal veins. 2. There is no superficial venous obstruction in the great saphenous vein. Left Impression 1. There is no deep venous obstruction in the common femoral, profunda femoral, femoral, popliteal, posterior tibial or peroneal veins. 2. There is no superficial venous obstruction in the great saphenous vein. Conclusions Summary Venous duplex imaging and compression of the bilateral lower extremities were performed. The veins were adequately visualized. The bilateral venous systems were patent and compressible with no evidence of thrombus. The venous Doppler waveforms were pulsatile indicating possible elevated right heart filling pressure. 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 Indications for Study:Evaluate for DVT. Patient Status:Routine. Study Location:Portable. Technical Quality:Adequate visualization . Risk Factors History of Disease + +----+------- + !Diagnosis !Date!Comments ! + +----+------- + !History/Risk Factors: !!CHF, DM, HTN, HLD ! + +----+------- + Procedure Note Interface, External Ris In - 01/20/2020 9:35 AM [employer] PV LAB - Lower Extremities DVT Study Demographics Patient Name CHAZ PADILLA Zachary e of Study 01/18/2020 Age 54 Visit Number [id number] Gen noreen Male Accession Number [id number] Zachary e of 1965 Referring Janie Lafleur m Number [id number] Physician [employer] Amie Sanz, Int erpretin Ariana Cabrera, RVT Daniel morgan MD Procedure Type of Study: Veins: Lower Extremities DVT Study, JAIR OUS DOPPLER LEG, BILATERAL. Indications for Study:Evaluate for DVT. Patient Status:Routine. Study Location:Portable. Technical Quality:Adequate visualization . Risk Factors History of Disease + +-- --+ + !Diagnosis !Da te!Comments ! + +-- --+ + !History/Risk Factors: ! !CHF, DM, HTN, HLD ! + +-- --+ + Impressions Right Impression 1. There is no deep venous obstruction i n the common femoral, profunda femoral, femoral, popliteal, posterior t ibial or peroneal veins. 2. There is no superficial venous obstru ction in the great saphenous vein. Left Impression 1. There is no deep venous obstruction i n the common femoral, profunda femoral, femoral, popliteal, posterior t ibial or peroneal veins. 2. There is no superficial venous obstru ction in the great saphenous vein. Conclusions Summary Venous duplex imaging and compression o f the bilateral lower extremities were performed. The veins were adequate ly visualized. The bilateral venous systems were patent and compressible wi th no evidence of thrombus. The venous Doppler waveforms were pulsatile indicating possible elevated right heart filling pressure. Signature Velocities are measured in cm/s ; Diamet ers are measured in cm Performing Organization Address City/State/Zipcode Phone Number [facility] ECHO HEARTLAB [email or web address] [facility] 2D Echo W/Doppler(CW/PW/Color) (01/18/2020 12:07 PM [facility]) Ejection Fraction [facility] ECHO HEAR TLAB [email or web address] [facility] Specimen Narrative Performed At Transthoracic Echocardiography Report (T TE) [facility] ECHO HEARTLAB [email or web address] [facility] Demographics Patient NameCHAZ PADILLA Date of Study 01/18/2020 Male Visit [id number] Unknown Room Number 1114 Number Date of 1965Referring Physician Efrain Post MD Age 54 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 Clinical History HGB 13.9 HCT 38.9 % CURRENT EVERY DAY SMOKER Contrast Medium: Definity. Amount - 2 ml Height: 73 inches Weight: 121.56 kg (268 lbs) BSA: 2.44 m^2 BMI: 35.36 kg/m^2 HR: 89 bpm BP: 112/86 mmHg Summary Global LV systolic function severely re duced . Mild concentric LV hypertrophy. The left ventricle is chamber size (by vol index) is severely enlarged (male - LVED vol >100ml/m2). The following segment(s) appear akinetic: inferolateral, mid to distal lateral, inferior , entire apex. Diastolic dysfunction is likely due to concomitant heart disease. LV diastolic function is indeterminate. LA size is severely enlarged (>48 ml/m2 ) . RV chamber size is mildly enlarged . Global RV systolic function is severely depressed . MV leaflet mobility is decreased due to severely reduced stroke volume and leaflet tethering. Unable to estimate peak systolic PA pressure; inadequate TR velocity signal. The estimated RA pressure by IVC dynamics >20mmHg . Previous Study No prior exam available for comparison. Signature Findings Left Ventricle Global LV systolic function severely reduced . LV EF by Gann's method of disk assessmen t is se verely reduced (<20%) . Th e left ventricle is chamber size (by vol index) is severely enlarged (male - LVED vol >100m l/m2). Mi ld concentric LV hypertrophy. Th e following segment(s) appear akinetic: in ferolateral, mid to distal lateral, infe rior , en tire apex. Th e other segments are severely hypokineti c. Di astolic dysfunction is likely due to con comitant he art disease. LV diastolic function is indeterminate. Left AtriumLA size is severely enlarged (>48 ml/m2) . Right VentricleRV pacing wire is visualized . RV chamber size is mildly enlarged . Gl obal RV systolic function is severely de pressed . Right Atrium A pacemaker wire is visualized in the right atrium. Aortic Valve Normal AoV structure. Mitral Valve Mild MV leaflet thickening. MV leaflet mobility is decreased due to sev erely re duced stroke volume and leaflet tetherin g. Tr [place] mitral regurgitation. Tricuspid ValveTV structure is normal. Un able to estimate peak systolic PA pressu re; in adequate TR velocity signal. Pulmonic Valve PV is not well visualized. Mo derate pulmonary regurgitation. AortaAortic root size (SInus of Valsalva diameter) i s no rmal . PericardiumNo pericardial effusion is visualized. IVC/SVC/PA/PV/PleuralThe estimated RA pressure by IVC dynamics >20mmHg . Chambers/Structures Left Atrium LA Dimension: 5.66 cmLA Area: 26.59 cm^2 LA Volume: 120.84 ml LA Vol. Index: 50 ml/m^2 Left Ventricle LVIDd: 6.81 cm LVEDV:239.98 ml LVIDs: 6.5 cm LV Septum Diastolic: 1.32 cm LV PW Diastolic: 1.32 cm LV FS: 4.6 % LVEDV Gann's:261.61 ml LVESV Gann's:215.15 mlLVED : 107 ml/m^2 LVEF Gann's: 17.8 % LVESVI: 88 ml/m^2 LVOT Diameter: 2.03 cm Right Ventricle RVOT VTI: 5.51 cm Doppler/Quantitative Measurements Aortic Valve Peak Velocity: 0.73 m/sMean Velocity: 0.45 m/s Peak Gradient: 2.13 mmHg Mean Gradient: 0.99 mmHg AV Area (continuity): 2.25 cm^2 AV VTI: 11.02 cm AV DVI: 0.7 LVOT Peak Velocity: 0.51 m/s Peak Gradient: 1.05 mmHg Mean Velocity: 0.3 m/sMean Gradient: 0.46 mmHg LVOT Diameter: 2.03 cmLVOT VTI: 7.68 cm LVOT Area: 3.24 cm^2LVOT SV:24.84 ml LVOT CO: 2.21 l/min LVOT CI: 0.91 l/min/m^2 Procedure Note Interface, External Ris In - 01/18/2020 2:22 PM [employer] Transthoracic Echocardiography Report (TTE) Demographics Patient Name CHAZ PADILLA Date of S federicody 01/18/2020 Gender Male Visit Number [id number] Race Unknown Room Numb er 1114 Number Date of 1965 Referring Physician Efrain Post MD Age 54 year(s) Sonograph er Abed Uli Interpret paul Brannon MD Physician Procedure Type of Study TTE procedure:2DECHO W DOPPLE R(CW/PW/COLOR) (NILSA) Indications:Known or suspected heart terese lure. Clinical History HGB 13.9 HCT 38.9 % CURRENT EVERY DAY SMOKER Contrast Medium: Definity. Amount - 2 ml Height: 73 inches Weight: 121.56 kg (268 lbs) BSA: 2.44 m^2 BMI: 35.36 kg/m^2 HR: 89 bpm BP: 112/86 mmHg Summary Global LV systolic function severely re duced . Mild concentric LV hypertrophy. The left ventricle is chamber size (by vol index) is severely enlarged (male - LVED vol >100ml/m2). The following segment(s) appear akineti c: inferolateral, mid to distal lateral, inferior , entire apex. Diastolic dysfunction is likely due to concomitant heart disease. LV diastolic function is indeterminate. LA size is severely enlarged (>48 ml/m2 ) . RV chamber size is mildly enlarged . Global RV systolic function is severely depressed . MV leaflet mobility is decreased due to severely reduced stroke volume and leaflet tethering. Unable to estimate peak systolic PA pre ssure; inadequate TR velocity signal. The estimated RA pressure by IVC dynami cs >20mmHg . Previous Study No prior exam available for comparison. Signature Findings Left Ventricle Global LV systol ic function severely reduced . LVEF by Gann' s method of disk assessment is severely reduced (<20%) . The left ventric le is chamber size (by vol index) is severely enla rged (male - LVED vol >100ml/m2). Mild concentric LV hypertrophy. The following se gment(s) appear akinetic: inferolateral, m id to distal lateral, inferior , entire apex. The other segmen ts are severely hypokinetic. Diastolic dysfun ction is likely due to concomitant heart disease. LV diastolic fun ction is indeterminate. Left Atrium LA size is sever victor hugo enlarged (>48 ml/m2) . Right Ventricle RV pacing wire i s visualized . RV chamber size is mildly enlarged . Global RV systol ic function is severely depressed . Right Atrium A pacemaker wire is visualized in the right atrium. Aortic Valve Normal AoV struc ture. Mitral Valve Mild MV leaflet thickening. MV leaflet mobil ity is decreased due to severely reduced stroke v olume and leaflet tethering. Trace mitral reg urgitation. Tricuspid Valve TV structure is normal. Unable to estima te peak systolic PA pressure; inadequate TR ve locity signal. Pulmonic Valve PV is not well v isualized. Moderate pulmona ry regurgitation. Aorta Aortic root size (SInus of Valsalva diameter) is normal . Pericardium No pericardial e ffusion is visualized. IVC/SVC/PA/PV/Pleural The estimated RA pressure by IVC dynamics >20mmHg . Chambers/Structures Left Atrium LA Dimension: 5.66 cm LA Area: 26.59 cm^2 LA Volume: 120.84 ml LA Vol. Index: 50 ml/m^2 Left Ventricle LVIDd: 6.81 cm LVEDV:239.98 ml LVIDs: 6.5 cm LV Septum Diastolic: 1.32 cm LV PW Diastolic: 1.32 cm LV FS: 4.6 % LVEDV Gann's:261.61 ml LVESV Gann's:215.15 ml LVEDVI: 107 ml/m^2 LVEF Gann's: 17.8 % LVESVI: 88 ml/m^2 LVOT Diameter: 2.03 cm Right Ventricle RVOT VTI: 5.51 cm Doppler/Quantitative Measurements Aortic Valve Peak Velocity: 0.73 m/s Mean Velocity: 0.45 m/s Peak Gradient: 2.13 mmHg Mean Gradient: 0.99 mmHg AV Area (continuity): 2.25 cm^2 AV VTI: 11.02 cm AV DVI: 0.7 LVOT Peak Velocity: 0.51 m/s Pea k Gradient: 1.05 mmHg Mean Velocity: 0.3 m/s Brenda n Gradient: 0.46 mmHg LVOT Diameter: 2.03 cm LVO T VTI: 7.68 cm LVOT Area: 3.24 cm^2 LVO T SV:24.84 ml LVOT CO: 2.21 l/min LVO T CI: 0.91 l/min/m^2 Performing Organization Address City/State/Zipcode Phone Number [facility] Troponin I (01/18/2020 8:39 AM [facility] [employer] [employer])Only the most recent of2 resultswithin the time period is included. Troponin I 0.10 (H) 0.00 - 0.03 ng/mL [facility] Specimen Blood Narrative Performed At Troponin I (TnI) levels must be interpreted [facility] in the context of the presenting symptoms and the clinical findings. Elevated TnI levels indicate myocardial damage, but are not specific for ischemic heart disease. Elevated TnI levels are seen in patients with other cardiac conditions (including myocarditis and congestive heart failure), and slight TnI elevations occur in patients with other conditions, including sepsis, renal failure, acidosis, acute neurological disease, and persistent tachyarrhythmia. Count Room Clerk ID - CASS Navarro Performing Organization Address City/[facility]/[place] [address] CENTER XR chest 1 view portable / bedside (01/18/2020 3:27 AM [facility] [employer]) Specimen Narrative Performed At FINAL REPORT GE RIS RAD, CHEST, 1 VIEW, NON DEPT INDICATION: CHF COMPARISON: None FINDINGS: Portable frontal view of the c hest. IMPRESSION: Support Lines: A dual-lead AICD apparatu s overlies left chest with leads in expected regions of the left at rium and left ventricle. Lungs and pleura: There are diffuse inte rstitial opacities with central hilar airspace opacification fav ored to reflect edema. Atypical infection could have a similar appearance. No overt airspace consolidation. No sizable pleural effusi on. No pneumothorax. Heart and mediastinum: Stable contours. Additional findings: None. Signed: Christa Coley MD Report Verified Date/Time:01/18/2020 06:51:28 Procedure Note Interface, External Ris In - 01/18/2020 6:54 AM [facility] FINAL REPORT RAD, CHEST, 1 VIEW, NON DEPT INDICATION: CHF COMPARISON: None FINDINGS: Portable frontal view of the c hest. IMPRESSION: Support Lines: A dual-lead AICD apparatu s overlies left chest with leads in expected regions of the left at rium and left ventricle. Lungs and pleura: There are diffuse inte rstitial opacities with central hilar airspace opacification fav ored to reflect edema. Atypical infection could have a similar appearance. No overt airspace consolidation. No sizable pleural effusi on. No pneumothorax. Heart and mediastinum: Stable contours. Additional findings: None. Signed: Christa Coley MD Report Verified Date/Time: 01/18/2020 0 6:51:28 Performing Organization Address City/State/Zipcode Phone Number [facility] Respiratory Panel [facility] (01/18/2020 1:29 AM [facility] [employer] [employer] [employer]) Human Metapneumovirus Not detected Not detected, [facility]ocal [facility] Rhinovirus Not detected Not detected, [facility] [employer] Influenza A Not detected Not detected, [facility] INFLUENZA A (NO SUBTYPE) [facility] Influenza A subtype H1 [facility] ER Influenza A Subtype H3 [facility] Influenza A Subtype H1-2009 [facility] Influenza B Not detected Not detected, [facility] Respiratory Syncytial Virus Not detected Not detected, [facility] Parainfluenza Virus 1 Not detected Not detected, [facility] Equivocal [facility] Parainfluenza Virus 2 Not detected Not detected, [facility] Equivocal [facility] ER Parainfluenza virus 3 Not detected Not detected, [facility] Equ[facility]ocal [facility] Parainfluenza Virus 4 Not detected Not detected, [facility] Equivocal [facility] Adenovirus Not detected Not detected, [facility] Coronavirus 229E Not detected Not detected, [facility]ocal [facility] Coronavirus HKU1 Not detected Not detected, [facility] Coronavirus NL63 Not detected Not detected, [facility] Coronavirus OC43 Not detected Not detected, [facility] Equivocal [facility] Bordetella Pertussis Not detected Not detected, [facility] Equivocal [facility] Chlamydophila Pneumoniae Not detected Not detected, [facility] Mycoplasma Pneumoniae Not detected Not detected, [facility]ocal [facility] Specimen Nasopharyngeal Narrative Performed At Other viruses and bacteria not targeted by [facility] this PCR panel cannot be excluded; therefore clinical correlation and follow up of serology, culture results, and other molecular studies is required. The results are not intended to be used as the sole means for clinical diagnosis or patient management decisions. This sample was tested at the [facility] Molecular Diagnostics Laboratory using the PxRadia FilmArray Respiratory Panel. It is FDA cleared and has been verified and approved by the [facility] Molecular Diagnostics Laboratory for clinical use on nasopharyngeal swab specimens. The performance of the FilmArray RP has not been established in individuals who received influenza vaccine.Recent administration of a nasal influenza vaccine may cause false positive results for Influenza A and/or Influenza B. Performing Organization Address City/State/Zipcode Phone Number [facility] [address] [place] [address] CENTER ECG 12 lead (01/18/2020 12:51 AM [facility] [employer] [employer] [employer]) Specimen Narrative Performed At Ventricular Rate 94 BPM GE MUSE Atrial Rate 94 BPM P-R Interval 232 ms QRS Duration 120 ms Q-T Interval 392 ms QTC Calculation(Bazett) 490 ms P [place] 55 degrees R [place] -81 degrees T [place] 87 degrees Sinus rhythm with 1st degree A-V block Left anterior fascicular block Right bundle branch block Possible Anterolateral infarct , age und etermined Prolonged QT Abnormal ECG No previous ECGs available Confirmed by MD DESI, CHELA ([id number]) on 01/18/2020 1:51:43 PM Procedure Note Interface, External Ris In - 01/18/2020 1:51 PM [facility] [employer] Ventricular Rate 94 BPM Atrial Rate 94 BPM P-R Interval 232 ms QRS Duration 120 ms Q-T Interval 392 ms QTC Calculation(Bazett) 490 ms P [place] 55 degrees R [place] -81 degrees T [place] 87 degrees Sinus rhythm with 1st degree A-V block Left anterior fascicular block Right bundle branch block Possible Anterolateral infarct , age und etermined Prolonged QT Abnormal ECG No previous ECGs available Confirmed by MD DESI, CHELA ([id number]) on 01/18/2020 1:51:43 PM Performing Organization Address [facility] Phone Number PENG FOWLER PT/aPTT (01/17/2020 11:24 PM [facility] [employer] [employer]) Protime 14.9 (H) 11.9 - 14.2 seconds [facility] INR 1.2 <=5.9 [facility] PTT 31.5 22.5 - 36.0 seconds [facility] Specimen Blood Narrative Performed At Effective 04/21/2019: PT Reference Range [facility] Change New: 11.9-14.2Previous: 11.7-14.7 RECOMMENDED COUMADIN/WARFARIN INR THERAPY RANGES STANDARD DOSE: 2.0-3.0Includes: PROPHYLAXIS for venous thrombosis, systemic embolization; TREATMENT for venous thrombosis and/or pulmonary embolus. HIGH RISK: Target INR is 2.5-3.5 for patients wiht mechanical heart valves. Performing Organization Address [facility] Phone Number [place] [phone] [place] [address] CENTER CBC with platelet count + automated diff (01/17/2020 11:24 PM [facility] [employer] [employer] [employer]) WBC 11.4 (H) 3.5 - 10.5 K/L [facility] RBC 4.24 (L) 4.63 - 6.08 M/L [facility] Hemoglobin 13.4 (L) 13.7 - 17.5 GM/DL [facility] Hematocrit 38.9 (L) 40.1 - 51.0 % [facility] MCV 91.7 79.0 - 92.2 fL [facility] MCH 31.6 25.7 - 32.2 pg [facility] MCHC 34.4 32.3 - 36.5 GM/DL [facility] RDW 12.9 11.6 - 14.4 % [facility] Platelets 248 150 - 450 K/CU MM [facility] MPV 9.9 9.4 - 12.4 fL [facility] nRBC 0 0 - 0 /100 WBC [facility] % Neutros 52 % [facility] % Lymphs 38 % [facility] % Monos 6 % [facility] % Eos 2 % [facility] % Baso 1 % [facility] # Neutros 5.93 (H) 1.78 - 5.38 K/L [facility] # Lymphs 4.35 (H) 1.32 - 3.57 K/L [facility] # Monos 0.67 0.30 - 0.82 K/L [facility] # Eos 0.27 0.04 - 0.54 K/L [facility] # Baso 0.12 (H) 0.01 - 0.08 K/L [facility] Immature Granulocytes-Relative 0 0 - 1 % C HI [facility] Specimen Blood Performing Organization Address City/State/Zipcode Phone Number [facility] [address] [place] [address] CENTER Phosphorus (01/17/2020 11:24 PM [facility] [employer] [employer]) Phosphorus 4.7Comment: Specimen slightly 2.3 - 4.7 mg/dL CH I [facility] Specimen Blood Narrative Performed At Count Room Clerk ID - BS [facility] Performing Organization Address [facility]/Zipcode Phone Number [facility] [address] [place] [address] [place] Hemoglobin A1c (01/17/2020 11:24 PM [employer] [employer]) Hemoglobin A1C 13.6 (H) 4.3 - 6.1 % [facility] Specimen Blood Performing Organization Address [facility] Phone Number [facility] [address] [place] [address] [place] Lipid panel (01/17/2020 11:24 PM [employer]) Triglycerides 82Comment: Specimen slightly mg/dL [facility] Cholesterol 118Comment: Specimen slightly mg/dL [facility] HDL 42 mg/dL [facility] LDL Calculated 60 mg/dL [facility] Specimen Blood Narrative Performed At Triglyceride Reference Range: [facility] Low Risk <150 [id number] High Risk 200-499 Very High Risk>=500 Cholesterol Reference Range: Low Risk <200 [id number] High Risk>240 HDL Cholesterol Reference Range: Low Risk >=60 High Risk <40 LDL Cholesterol Reference Range: Optimal<100 Near [id number] Very High >=190 Count Room Clerk ID - BS Performing Organization Address [facility] Phone Number [facility] [address] [place] [address] CENTER after 05/28/2019 Insurance Payer Benefit Plan / Group Subscriber ID Type Phone A ddress MEDICARE MEDICARE A B xxxxxxxxxxx Medicare Advance Directives For more information, please contact:[facility] [place], [place] [phone] Code Status Date Activated Date Inactivated Comments Full Code 01/17/2020 11:45 PM 01/21/2020 3:46 PM This code status was determined by: Patient
--- OUTSIDE RECORDS SUMMARY | 2020-05-28 02:48 | XMS REPORT | Continuity of Care Document ---
:1965 Author Organization [facility] t Address [address] [place] [address] Care Team Providers Name Role Phone Kaleb Alexander MD Primary Care Physician Addy MEZA Attending Clinician Meño Zuniga MD Attending Clinician MEÑO ZUNIGA Attending Clinician Unavailable MEÑO ZUNIGA Admitting Clinician Unavailable Payers Payer Name Policy Policy Number Effective Expiration Source Type Date Date MEDICAREMEDICARE A xxxxxxxxxxx [facility] [place] [facility] Problems Condition Condition Condition Status Onset Resolution Last Treating Co mments Source Name Details Category Date Date Treatment Clinician Date Essential Essential Disease Active [facility] hypertensi hypertensi 2-25 Corin kes - on on 00:00: Medical 00 [place] Hyperlipid Hyperlipid Disease Active [facility] em[facility] emia 2-25 [facility] - 00:[facility]: Medical 00 [place] Type 2 Type [address] [facility] diabetes diabetes 2-25 [facility] - mellitus mellitus 00:00: Medica l 00 Center Acute Acute Disease Active [facility] kidney kidney 2-25 [facility] - injury injury 00:00: Medical 00 [place] Acute on Acute on Disease Active [facility] chronic chronic [facility]-24 [facility] - systolic systolic 00:00: Medica l heart heart 00 Center failure, failure, NYHA class NYHA class 4 4 Allergies, Adverse Reactions, Alerts Allergy Allergy Status Severity Reaction(s) Onset Inactive Treating Comm ents Source Name Type Date Date Clinician Rifampin Propensi Active Severe Other [facility] ty to 4-24 reaction( [facility] - adverse 00:00: s): Medical reaction 00 Unknown - Cente r s See commentsL ooses muscle control (Severe Spasms) Sulfa Propensi Active Severe Other [facility] (Sulfona ty to 4-24 reaction( [facility] - mide adverse 00:00: s): Medical Antibiot reaction 00 Unknown - [facility] ter ics) s See commentsL oose control of muscles (Severe spasms) Social History Social Habit Start Date Stop Date Quantity Comments Source Sex Assigned At [facility] Cigarettes smoked 2020-01-21 2020-01-21 [facility] - current (pack per 00:00:00 00:00:00 Medical Center day) - Reported Smoking Status Start Date Stop Date Source Current every day smoker 2020-01-21 00:00:00 [facility] Medications Ordered Filled Start Stop Current Ordering Indication Dosage Frequency Signature Comments Components Source Medication Medication Date Date Medication? Clinician (SIG) Name Name aspirin 81 2020-0 Yes 81mg QD Take 1 [facility] MG EC 2-29 tablet (81 [facility] - tablet 00:00: mg total) Medica l 00 by mouth Center daily. clopidogrel 2020-0 Yes 75mg QD Take [address] (PLAVIX) 75 2-29 tablet (75 Corin kes - mg tablet 00:00: mg total) Med ical 00 by mouth Center daily. pantoprazol 2020-0 Yes 40mg QD Take [address] [facility] e 2-29 tablet (40 [facility] - (PROTONIX) 00:00: mg total) Me dical 40 MG 00 by mouth Center tablet daily. spironolact 2020-0 Yes 25mg QD Take [address] [facility] one 2-29 tablet (25 [facility] - (ALDACTONE) 00:00: mg total) M edical 25 MG 00 by mouth Center tablet daily. potassium 2020-0 Yes 20meq QD Take 1 [facility] chloride SA 2-29 tablet (20 Corin kes - (K-DUR,KLOR 00:00: mEq total) Medical -CON) 20 00 by mouth Center MEQ tablet daily. atorvastati 2020-0 Yes 80mg QD Take [address] n (LIPITOR) 2-28 tablet (80 Corin kes - 80 MG 00:00: mg total) Medical tablet 00 by mouth Center nightly. magnesium 2020-0 Yes 400mg Q.5D Take 1 [facility] oxide 2-28 tablet [facility] - (MAG-OX) 00:00: (400 mg Medica l 400 mg 00 total) by Center (241.3 mg mouth 2 magnesium) (two) tablet times daily. insulin 2020-0 Yes 14U Inject 14 [facility] 70/30, 2-28 Units [facility] - insulin 00:00: subcutaneo Medi glen NPH-insulin 00 usly 2 Center regular, (two) (HUMULIN times 70/30 U-100 daily INSULIN) before 100 unit/mL meals. (70-30) injection insulin 2019-0 Yes 60{each Q.5D [address] [facility] syringe-nee 01-21 } Miscellane Corin kes - dle U-100 00:00: ous route Med ical 1/2 mL 00 2 (two) Center gauge x times 1/2" Syrg daily. carvedilol 2019-0 Yes 3.125mg Take [address] (COREG) 01-21 tablet [facility] - 3.125 MG 00:00: (3.125 mg Medi glen tablet 00 total) by Center mouth 2 (two) times daily with breakfast and dinner. hydrALAZINE 2019-0 Yes 10mg Q.[id number] Take [address] (APRESOLINE 01-21 [id number] tablet (10 [facility] - ) 10 MG 00:00: 3D mg total) Medic al tablet 00 by mouth 3 Center (three) times daily. bumetanide 2019-0 Yes 2mg Q.5D Take 1 [facility] (BUMEX) 2 -28 tablet (2 [facility] - MG tablet 00:00: mg total) Med ical 00 by mouth 2 Center (two) times daily. nitroglycer 2019-0 2020- No [facility] in 2-24 - [facility] - (NITROSTAT) 00:00: 00:00 Medic al 0.4 MG SL 00 :00 Center tablet HYDROcodone 2019-0 2020- No TAKE [address] [facility] -acetaminop -20 01-21 TABLET BY Corin stevenson (NORCO 00:00: 00:00 MOUTH FOUR Medical 10-325) 00 :00 TIMES Center 10-325 mg DAILY per tablet NEEDED FOR PAIN. CAUTION SEDATION. furosemide 2019-0 2020- No [facility] (LASIX) 40 01-12 [facility] - MG tablet 00:00: 00:00 Medical 00 :00 [place] spironolact 2019- No [facility] one 01-12 [facility] - (ALDACTONE) 00:00: 00:00 Medic al 25 MG 00 :00 [place] tablet carvedilol 2019- No [facility] (COREG) 01-12 [facility] - 3.125 MG 00:00: 00:00 Medical tablet 00 :00 [place] pantoprazol 2019- No [facility] e 01-12 [facility] - (PROTONIX) 00:00: 00:00 Medica l 40 MG 00 :00 [place] tablet clopidogrel 2019- No 75mg Take [address] (PLAVIX) 75 12-11 by mouth. Corin kes - mg tablet 00:00: 00:00 Medical 00 :00 [place] zolpidem 2019- No 10mg Take [address] (AMBIEN) 10 02-19 by mouth. Corin kes - mg tablet 00:00: 00:00 Medical 00 :00 [place] gabapentin 2019- No 900mg Q.[id number] Take [address] (NEURONTIN) 12-02 [id number] mg by [facility] - 300 MG 00:00: 00:00 3D mouth 3 Medical capsule 00 :00 (three) Center times daily. albuterol Yes 2{puff} Inhale [address] HFA 9-30 puffs by [facility] - (VENTOLIN 00:00: mouth via Med ical HFA) 90 00 inhaler. [place] mcg/actuati on inhaler aspirin 81 2019- No 81mg Take [address] MG EC 08-05 by mouth. [facility] - tablet 00:00: 00:00 Medical 00 :00 [place] Vital Signs Vital Name Observation Time Observation Value Comments Source Systolic blood 2020-01-21 09:15:00 104 mm[Hg] [facility] pressure [facility] Diastolic blood 2020-01-21 09:15:00 65 mm[Hg] [facility] Heart rate 2020-01-21 09:15:00 84 /min [facility] - [facility] Body temperature 2020-01-21 07:00:00 36.44 Melinda [facility] Respiratory rate 2020-01-21 07:00:00 18 /min [facility] Oxygen saturation in 2020-01-21 07:00:00 98 /min [facility] Arterial blood by Medical Ce nter Pulse oximetry Body weight Measured 2020-01-20 05:58:00 114.805 kg [facility] BMI 2020-01-20 05:58:00 33.39 kg/m2 [facility] Body height 2020-01-18 00:00:00 185.4 cm [facility] Procedures Procedure Date / Time Performing Clinician Source Performed REPORT OF PROCEDURE - 2020-01-24 11:11:15 Provider, [facility] RHYTHM STRIP - SCAN 2020-01-24 11:11:13 Provider, Default [facility] POCT-GLUCOSE METER 2020-01-21 08:24:00 [facility] BASIC METABOLIC PANEL (7) 2020-01-21 06:33:00 Alexus Swanson V. [facility] CBC (HEMOGRAM ONLY) 2020-01-21 06:33:00 Alexus Swanson V. [facility] MAGNESIUM 2020-01-21 06:33:00 Alexus Swanson V. [facility] B-TYPE NATRIURETIC FACTOR 2020-01-21 06:33:00 ZunigaSejal [facility] (BNP) [facility] POCT-GLUCOSE METER 2020-01-21 00:05:00 [facility] PERIPHERAL VASCULAR REPORT 2020-01-20 21:24:23 Provider, Default [facility] POCT-GLUCOSE METER 2020-01-20 16:35:00 [facility] POCT-GLUCOSE METER 2020-01-20 12:35:00 [facility] POCT-GLUCOSE METER 2020-01-20 07:16:00 [facility] BASIC METABOLIC PANEL (7) 2020-01-20 04:59:00 Alexus Swanson V. [facility] CBC (HEMOGRAM ONLY) 2020-01-20 04:59:00 Alexus Swanson V. [facility] MAGNESIUM 2020-01-20 04:59:00 Alexus Swanson V. [facility] POCT-GLUCOSE METER 2020-01-19 22:29:00 Zuniga [facility] POCT-GLUCOSE METER 2020-01-19 16:46:00 [facility] POCT-GLUCOSE METER 2020-01-19 12:58:00 [facility] POCT-GLUCOSE METER 2020-01-19 07:27:00 [facility] B-TYPE NATRIURETIC FACTOR 2020-01-19 03:46:00 Sejal Zuniga [facility] (BNP) [facility] BASIC METABOLIC PANEL (7) 2020-01-19 03:46:00 Alexus Swanson V. [facility] CBC (HEMOGRAM ONLY) 2020-01-19 03:46:00 Alexus Swanson V. [facility] MAGNESIUM 2020-01-19 03:46:00 Alexus Swanson [facility] TSH/FREE T4 IF INDICATED 2020-01-19 03:46:00 Alexus Swanson [facility] POCT-GLUCOSE METER 2020-01-18 22:58[facility] - 2020-01-18 21:22:33 Provider, [facility] VENOUS DOPPLER LEGS 2020-01-18 18:23:00 Alexus Swanson V. [facility] POCT-GLUCOSE METER 2020-01-18 16:59:[facility] POCT-[facility]UCOSE METER 2020-01-18 13:19:00 [facility] POCT-GLUCOSE METER 2020-01-18 12:44:[facility] ECHO W/ DOPPLER 2020-01-18 12:07:07 Eveline [facility] (CW/PW/COLOR) [facility] POCT-GLUCOSE METER 2020-01-18 09:31:00 [facility] TROPONIN I 2020-01-18 08:39:[facility]NES[facility] 2020-01-18 08:39:00 [facility] XR CHEST 1 VIEW 2020-01-18 03:27:[address] [facility]ED[facility] RESPIRATORY PANEL [facility] 2020-01-18 01:29[facility] 2020-01-18 00:51:16 Unknown, Hl7 Doctor [facility] BASIC METABOLIC PANEL (7) 2020-01-17 23:24:00 Eveline [facility] MAGNESIUM 2020-01-17 23:24[facility] NATRI[facility]TIC FACTOR 2020-01-17 23:24:00 ChandanaFormerly named [facility] (BNP) [facility] PHOSPHORUS 2020-01-17 23:24:00 [facility] PT[facility]APTT 2020-01-17 23:24[facility] 2020-01-17 23:24[facility] HEMO[facility] A1C 2020-01-17 23:24:00 [facility] LIPID PANEL 2020-01-17 23:24:00 [facility] CBC W/PLT COUNT & AUTO 2020-01-17 23:24:00 [facility] Encounters Start End Encounter Admission Attending Care Care Encounter Source Date/Time Date/Time Type Type Clinicians Facility Department ID 2020-04-06 2020-04-06 [facility] [id number] 00:00:00 00:00:00 Lacie Lyles [id number] [place] [id number] [id number] [facility] 220 [facility] Results Test Description Test Time Test Comments Results Result Comments Source POC-Glucose meter 2020-01-21 08:36:00 Test Item Value Reference Range Interpretation Comme nts POC-Glucose Meter (test code = 164 mg/dL 70-110 H : TESTED AT [facility] [address] [facility] 1538) [facility], 7[address] 30: Director Digital Communications/Techni dc ID = [id number] for JONAH MCNEAL Lab Interpretation (test code = Abnormal 53162-3) [facility] [id number] 08:36:00 Test Item Value Reference Range Interpretation Comments POC-GLUCOSE METER 164 mg/dL 70-110 H : TESTED A T [facility] [address] (BEAKER) (test code = ANURAG R [facility], 1538) [address]: Director Digital Communications/Techni dc ID = [id number] for JONAH MCNEAL Basic Metabolic [id number] 07:28:00 Test Item Value Reference Range Interpretation Comments Sodium (test code = 139 meq/L 232-488 0218-2) Potassium (test code 3.8 meq/L 3.5-5.1 = 2823-3) Chloride (test code = 96 meq/L 98-107 L 2075-0) CO2 (test code = 33 meq/L 22-29 H 2028-9) BUN (test code = 23 mg/dL 7-21 H 3094-0) Creatinine (test code 0.92 mg/dL 0.57-1.25 = 2160-0) Glucose (test code = 143 mg/dL 70-105 H 2345-7) Calcium (test code = 10.4 mg/dL 8.4-10.2 H 78509-7) EGFR (test code = [place] [address]-6) CLINICAL DATA T O CALCULATE ESTIMATED GFR. ROMÁN (test code = ROMÁN) Director Digital Communications ID - PIAYA L Lab Interpretation Abnormal (test code = 81428-5) [facility] [id number] 07:28:00 Test Item Value Reference Range Interpretation Comments SODIUM (BEAKER) (test 139 meq/L 136-145 code = 381) POTASSIUM (BEAKER) 3.8 meq/L 3.5-5.1 (test code = 379) CHLORIDE (BEAKER) 96 meq/L 98-107 L (test code = 382) CO2 (BEAKER) (test 33 meq/L 22-29 H code = 355) BLOOD UREA NITROGEN 23 mg/dL 7-21 H (BEAKER) (test code = 354) CREATININE (BEAKER) 0.92 mg/dL 0.57-1.25 (test code = 358) GLUCOSE RANDOM 143 mg/dL 70-105 H (BEAKER) (test code = 652) CALCIUM (BEAKER) 10.4 mg/dL 8.4-10.2 H (test code = 697) EGFR (BEAKER) (test INSUFFIC IENT CLINICAL code = 1092) DATA TO CALCULA TE ESTIMATED GFR. Director Digital Communications ID Salvador REAL [id number] 07:27:00 Test Item Value Reference Range Interpretation Comments Magnesium (test code = 1.3 mg/dL 1.6-2.6 L 97898-0) ROMÁN (test code = ROMÁN) Director Digital Communications ID - ADDIE L Lab Interpretation (test Abnormal code = 95624-3) [facility]2020-02-28 07:27:00 Test Item Value Reference Range Interpretation Comments MAGNESIUM (BEAKER) (test code = 1.3 mg/dL 1.6-2.6 L 627) Director Digital Communications RAMON REAL LB-type Natriuretic Factor (BNP)2020-01-21 07:17:00 Test Item Value Reference Range Interpretation Comments BNP (test code = 95615-9) 1285 pg/mL 0-100 H ROMÁN (test code = ROMÁN) Director Digital Communications ID - ADDIE L Lab Interpretation (test Abnormal code = 11374-2) [facility] NATRIURETIC FACTOR (BNP)2020-01-21 07:17:00 Test Item Value Reference Range Interpretation Comments B-TYPE NATRIURETIC PEPTIDE 1285 pg/mL 0-100 H (BEAKER) (test code = 700) Director Digital Communications ID Salvador REAL LCBC (Hemogram only)2020-01-21 06:56:00 Test Item Value Reference Range Interpretation Comments WBC (test code = 6690-2) 8.6 3.5- 10.5 K/L RBC (test code = 789-8) 5.05 4.63- 6.08 M/L MCHC (test code = 786-4) 34.3 32.3- 36.5 GM/DL Hematocrit (test code = 4544-3) 45.5 % 40.1-51 MCV (test code = 787-2) 90.1 fL 79-92.2 MCH (test code = 785-6) 30.9 pg 25.7-32.2 RDW (test code = 788-0) 13.0 % 11.6-14.4 Platelets (test code = 777-3) 238 150- 450 K/CU MM MPV (test code = 96053-1) 9.7 fL 9.4-12.4 nRBC (test code = 413) 0 0- 0 /100 WBC Lab Interpretation (test code = Normal 47283-3) [facility] (HEMOGRAM ONLY)2020-01-21 06:56:00 Test Item Value Reference Range Interpretation Comments WHITE BLOOD CELL COUNT (BEAKER) 8.6 K/ L 3.5-10.5 (test code = 775) RED BLOOD CELL COUNT (BEAKER) 5.05 M/ L 4.63-6.08 (test code = 761) HEMOGLOBIN (BEAKER) (test code = 15.6 GM/DL 13.7-17.5 410) HEMATOCRIT (BEAKER) (test code = 45.5 % 40.1-51.0 411) MEAN CORPUSCULAR VOLUME (BEAKER) 90.1 fL 79.0-92.2 (test code = 753) MEAN CORPUSCULAR HEMOGLOBIN 30.9 pg 25.7-32.2 (BEAKER) (test code = 751) MEAN CORPUSCULAR HEMOGLOBIN CONC 34.3 GM/DL 32.3-36.5 (BEAKER) (test code = 752) RED CELL DISTRIBUTION WIDTH 13.0 % 11.6-14.4 (BEAKER) (test code = 412) PLATELET COUNT (BEAKER) (test 238 K/CU MM 150-450 code = 756) MEAN PLATELET VOLUME (BEAKER) 9.7 fL 9.4-12.4 (test code = 754) NUCLEATED RED BLOOD CELLS 0 /100 WBC 0-0 (BEAKER) (test code = 413) POCT-GLUCOSE [id number] 00:24:00 Test Item Value Reference Range Interpretation Comments POC-GLUCOSE METER 177 mg/dL 70-110 H : TESTED A T [facility] [address] (LALYAKER) (test code = [facility] Y[facility]iel [facility], 153) [address]: Director Digital Communications/Techni dc ID = [id number] for KAYLEE BUI POCT-GLUCOSE [id number] 16:47:00 Test Item Value Reference Range Interpretation Comments POC-GLUCOSE METER 124 mg/dL 70-110 H : TESTED A T [facility] [address] (ROBBY) (test code = [facility], 1538) [address]: Director Digital Communications/Techni dc ID = [id number] for KASEY GOLDEN POCT-GLUCOSE [id number] 12:47:00 Test Item Value Reference Range Interpretation Comments POC-GLUCOSE METER 137 mg/dL 70-110 H : TESTED A T [facility] [address] (ROBBY) (test code = [facility], 1538) [address]: Director Digital Communications/Techni dc ID = [id number] for KASEY GOLDEN Venous doppler legs [id number] 09:35:07Ejection [facility] ECHO HEARTLAB MKCKESSON CPACSRight Impression1. There is no deep venous obstruction in the common femoral, profundafemoral, femoral, popliteal, posterior tibial or peroneal veins.2. There is no superficial venous obstruction in the great saphenous vein.Left Impression1. There is no deep venous obstruction in the common femoral, profundafemoral, femoral, popliteal, posterior tibial or peroneal veins.2. There is no superficial venous obstruction in the great saphenous vein. Conclusions Summary Venous duplex imaging and compression of the bilateral lower extremities were performed. The veins were adequately visualized. The bilateral venous systems were patent and compressiblewith no evidence of thrombus. The venous Doppler waveforms were pulsatile indicating possible elevated right heart filling pressure. Signature - Velocities are measured in cm/s ; Diameters are measured in cm Interface, External Ris In - 01/20/2020 9:35 AM [facility] LAB - Lower Extremities DVT Study Demographics Patient Name CHAZ PADILLA Date of Study 01/18/2020 Age 54 Visit Number [id number] Gender Male Accession Number [id number] Date of 1965 Referring Alexus Swanson, Room Number 1114 Physician Ladle Puller Amie Sanz, Interpreting Ariana Cabrera, T Physician ProcedureType of Study: Veins: Lower Extremities DVT Study, VENOUS DOPPLER LEG, BILATERAL. Indications for Study:Evaluate for DVT.Patient Status:Routine.Study Location:Portable.Technical Quality:Adequate visualization.Risk FactorsHistory of Disease+ +----+ +!Diagnosis !Date!Comments !+------ +----+ +!History/Ri sk Factors: ! !CHF, DM, HTN, HLD !+ +----+ +ImpressionsRight Impression1. There is no deep venous obstruction in the common femoral, profundafemoral, femoral, popliteal, posterior tibial or peroneal veins.2. There is no superficial venous obstruction in the great saphenous vein.Left Impression1. There is no deep venous obstruc tion in the common femoral, profundafemoral, femoral, popliteal, posterior tibial or peroneal veins.2. There is no superficial venous obstruction in the great saphenous vein. Conclusions Summary Venous duplex imaging and compression of the bilateral lower extremities were performed. The veins were ad equately visualized. The bilateral venous systems were patent and compressible with no evidence of thrombus. The venous Doppler waveforms were pulsatile indicating possible elevated right heart fillingpressure. Signature Velocities are measured in cm/s ; Diameters are measured in [facility] POCT-GLUCOSE [id number] 09:32:00 Test Item Value Reference Range Interpretation Comments POC-GLUCOSE METER 174 mg/dL 70-110 H : TESTED A T [facility] [address] (BEAKER) (test code = [facility] [place] [place], 1538) [address]: Director Digital Communications/Techni dc ID = [id number] for KASEY GOLDEN BASIC METABOLIC [id number] 06:36:00 Test Item Value Reference Range Interpretation Comments SODIUM (BEAKER) (test 137 meq/L 136-145 code = 381) POTASSIUM (BEAKER) 3.2 meq/L 3.5-5.1 L (test code = 379) CHLORIDE (BEAKER) 99 meq/L 98-107 (test code = 382) CO2 (BEAKER) (test 27 meq/L 22-29 code = 355) BLOOD UREA NITROGEN 27 mg/dL 7-21 H (BEAKER) (test code = 354) CREATININE (BEAKER) 0.80 mg/dL 0.57-1.25 (test code = 358) GLUCOSE RANDOM 161 mg/dL 70-105 H (BEAKER) (test code = 652) CALCIUM (BEAKER) 9.6 mg/dL 8.4-10.2 (test code = 697) EGFR (BEAKER) (test INSUFFIC IENT CLINICAL code = 1092) DATA TO CALCULA TE ESTIMATED GFR. Director Digital Communications ID - ADDIE [id number] 06:30:00 Test Item Value Reference Range Interpretation Comments MAGNESIUM (BEAKER) (test code = 1.1 mg/dL 1.6-2.6 L 627) Director Digital Communications ID - ADDIE LCBC (HEMOGRAM ONLY)2020-01-20 06:05:00 Test Item Value Reference Range Interpretation Comments WHITE BLOOD CELL COUNT (BEAKER) 8.5 K/ L 3.5-10.5 (test code = 775) RED BLOOD CELL COUNT (BEAKER) 4.53 M/ L 4.63-6.08 L (test code = 761) HEMOGLOBIN (BEAKER) (test code = 14.0 GM/DL 13.7-17.5 410) HEMATOCRIT (BEAKER) (test code = 40.7 % 40.1-51.0 411) MEAN CORPUSCULAR VOLUME (BEAKER) 89.8 fL 79.0-92.2 (test code = 753) MEAN CORPUSCULAR HEMOGLOBIN 30.9 pg 25.7-32.2 (BEAKER) (test code = 751) MEAN CORPUSCULAR HEMOGLOBIN CONC 34.4 GM/DL 32.3-36.5 (BEAKER) (test code = 752) RED CELL DISTRIBUTION WIDTH 12.8 % 11.6-14.4 (BEAKER) (test code = 412) PLATELET COUNT (BEAKER) (test 242 K/CU MM 150-450 code = 756) MEAN PLATELET VOLUME (BEAKER) 10.0 fL 9.4-12.4 (test code = 754) NUCLEATED RED BLOOD CELLS 0 /100 WBC 0-0 (BEAKER) (test code = 413) POCT-GLUCOSE [id number] 22:41:00 Test Item Value Reference Range Interpretation Comments POC-GLUCOSE METER 219 mg/dL 70-110 H : TESTED A T [facility] [address] (BEAKER) (test code = [facility], 1538) [address]: Director Digital Communications/Techni dc ID = [id number] for MARII FUCHS POCT-GLUCOSE [id number] 16:58:00 Test Item Value Reference Range Interpretation Comments POC-GLUCOSE METER 158 mg/dL 70-110 H : TESTED A T [facility] [address] (BEAKER) (test code = [facility], 1538) [address]: Director Digital Communications/Techni dc ID = [id number] for COURTNEY FORD POCT-GLUCOSE [id number] 13:12:00 Test Item Value Reference Range Interpretation Comments POC-GLUCOSE METER 195 mg/dL 70-110 H : TESTED A T [facility] [address] (BEAKER) (test code = [facility], 1538) [address]: Director Digital Communications/Techni dc ID = [id number] for KASEY GOLDEN POCT-GLUCOSE [id number] 07:39:00 Test Item Value Reference Range Interpretation Comments POC-GLUCOSE METER 237 mg/dL 70-110 H : TESTED A T [facility] [address] (BEAKER) (test code = [facility], 1538) [address]: Director Digital Communications/Techni dc ID = [id number] for KASEY GOLDEN BASIC METABOLIC [id number] 06:16:00 Test Item Value Reference Range Interpretation Comments SODIUM (BEAKER) (test 136 meq/L 136-145 code = 381) POTASSIUM (BEAKER) 3.6 meq/L 3.5-5.1 (test code = 379) CHLORIDE (BEAKER) 101 meq/L 98-107 (test code = 382) CO2 (BEAKER) (test 25 meq/L 22-29 code = 355) BLOOD UREA NITROGEN 32 mg/dL 7-21 H (BEAKER) (test code = 354) CREATININE (BEAKER) 1.08 mg/dL 0.57-1.25 (test code = 358) GLUCOSE RANDOM 261 mg/dL 70-105 H (BEAKER) (test code = 652) CALCIUM (BEAKER) 8.8 mg/dL 8.4-10.2 (test code = 697) EGFR (BEAKER) (test INSUFFIC IENT CLINICAL code = 1092) DATA TO CALCULA TE ESTIMATED GFR. Director Digital Communications ID - NOLBERTO [id number] 06:14:00 Test Item Value Reference Range Interpretation Comments MAGNESIUM (BEAKER) (test code = 1.2 mg/dL 1.6-2.6 L 627) Director Digital Communications ID - NOLBERTO MTSH/Free T4 If [id number] 06:13:00 Test Item Value Reference Range Interpretation Comments TSH (test code = 86415-6) 0.71 0.35- 4.94 uIU/mL ROMÁN (test code = ROMÁN) Director Digital Communications ID - DB Lab Interpretation (test Normal code = 88755-5) [facility] T4 IF [id number] 06:13:00 Test Item Value Reference Range Interpretation Comments THYROID STIMULATING HORMONE 0.71 uIU/mL 0.35-4.94 (BEAKER) (test code = 772) Director Digital Communications ID - ELENAB-TYPE NATRIURETIC FACTOR (BNP)2020-01-19 05:43:00 Test Item Value Reference Range Interpretation Comments B-TYPE NATRIURETIC PEPTIDE 2649 pg/mL 0-100 H (BEAKER) (test code = 700) Director Digital Communications ID - NOLBERTO MCBC (HEMOGRAM ONLY)2020-01-19 05:41:00 Test Item Value Reference Range Interpretation Comments WHITE BLOOD CELL COUNT (BEAKER) 9.5 K/ L 3.5-10.5 (test code = 775) RED BLOOD CELL COUNT (BEAKER) 4.29 M/ L 4.63-6.08 L (test code = 761) HEMOGLOBIN (BEAKER) (test code = 13.3 GM/DL 13.7-17.5 L 410) HEMATOCRIT (BEAKER) (test code = 39.2 % 40.1-51.0 L 411) MEAN CORPUSCULAR VOLUME (BEAKER) 91.4 fL 79.0-92.2 (test code = 753) MEAN CORPUSCULAR HEMOGLOBIN 31.0 pg 25.7-32.2 (BEAKER) (test code = 751) MEAN CORPUSCULAR HEMOGLOBIN CONC 33.9 GM/DL 32.3-36.5 (BEAKER) (test code = 752) RED CELL DISTRIBUTION WIDTH 13.0 % 11.6-14.4 (BEAKER) (test code = 412) PLATELET COUNT (BEAKER) (test 224 K/CU MM 150-450 code = 756) MEAN PLATELET VOLUME (BEAKER) 10.4 fL 9.4-12.4 (test code = 754) NUCLEATED RED BLOOD CELLS 0 /100 WBC 0-0 (BEAKER) (test code = 413) POCT-GLUCOSE [id number] 23:12:00 Test Item Value Reference Range Interpretation Comments POC-GLUCOSE METER 265 mg/dL 70-110 H : TESTED A T [facility] 6720 (BEAKER) (test code = [employer] [facility], 1538) [address]: Director Digital Communications/Techni dc ID = [id number] for MARII FUCHS POCT-GLUCOSE [id number] 17:14:00 Test Item Value Reference Range Interpretation Comments POC-GLUCOSE METER 250 mg/dL 70-110 H : TESTED A T [facility] 6720 (BEAKER) (test code = [employer] [facility], 1538) [address]: Director Digital Communications/Techni dc ID = [id number] for ZABRINA WARD 2D Echo W/Doppler(CW/PW/Color)2020-01-18 14:22:21Ejection FractionSLEH ECHO HEARTLAB MKCKESSON CPACSInterface, External Ris In - 01/18/2020 2:22 PM C STTransthoracic Echocardiography Report (TTE) Demographics Patient Name CHAZ PADILLA Date of Study 01/18/2020 Gender Male Visit Number [id number] Race Unknown Room Number 1114 Number Date of 1965 Referring Physician Efrain Post MD Age 54 year(s) Ladle Puller Abed Uli Interpreting Stefanie Brannon MD Physician Procedure Type of Study TTE procedure:2DECHO W DOPPLER(CW/PW/COLOR) (NILSA) Indications:Known or suspected heart failure.Clinical HistoryHGB 13.9HCT 38.9 %CURRENT EVERY DAY SMOKERContrast Medium: Definity. Amount - 2 mlHeight: 73 inches Weight: 121.56 kg (268 lbs) BSA: 2.44 m^2 BMI: 35.36kg/m^2HR: 89 bpm BP: 112/86 mmHg Summary Global LV systo lic function severely reduced . Mild concentric LV hypertrophy. The left ventricle is chamber size (by vol index) is severely enlarged (male - LVED vol >100ml/m2). The following segment(s) appear akinetic: inferolateral, mid to distal lateral, inferior , entire apex. Diastolic dysfunction is likelydue to concomitant heart disease. LV diastolic function is indeterminate. LA size is severely enlarged (>48 ml/m2) . RV chamber size is mildly enlarged . Global RV systolic function is severely depressed . MV leaflet mobility is decreased due to severely reduced stroke volume and leaflet tethering.Unable to estimate peak systolic PA pressure; inadequate TR velocity signal. The estimated RA pressure by IVC dynamics >20mmHg . Previous Study No prior exam available for comparison. Signature -- Findings Left Ventricle Global LV systolic function severely reduced . LVEF by Gann's method of disk assessment is severelyreduced (<20%) . The left ventricle is chamber size (by vol index) is severely enlarged (male - LVED vol >100ml/m2). Mild concentric LV hypertrophy. The following segment(s) appear akinetic: inferolateral, mid to distal lateral, inferior , entire apex. The other segments are severely hypokinetic. Diastolic dysfunction is likely due to concomitant heart disease. LV diastolic function is indeterminate. Left Atrium LA size is severely enlarged (>48 ml/m2) . Right Ventricle RV pacing wire is visualized . RV chamber size is mildly enlarged . Global RV systolic function is severely depressed . Right Atrium A pacemaker wire is visualized in the right atrium. Aortic Valve Normal AoV structure. Mitral Valve Mild MV leaflet thickening. MV leaflet mobility is decreased due to severely reduced stroke volume and leaflet tethering. Trace mitral regurgitation. Tricuspid Valve TV structure is normal. Unable to estimate peak systolic PA pressure; inadequate TR velocity signal. Pulmonic Valve PV is not well visualized. Moder ate pulmonary regurgitation. Aorta Aortic root size (SInus of Valsalva diameter) is normal . Pericardium No pericardial effusion is visualized. IVC/SVC/PA/PV/Pleural The estimated RA pressure by IVC dynamics >20mmHg . Chambers/Structures Left Atrium LA Dimension: 5.66 cm LA Area: 26.59 cm^2 LA Volume: 120.84 ml LA Vol. Index:50 ml/m^2 Left Ventricle LVIDd: 6.81 cm LVEDV:239.98 ml LVIDs: 6.5cm LV Septum Diastolic: 1.32 cm LV PW [...] Peak Gradient: 1.05 mmHg Mean Velocity: 0.3 m/s Mean Gradient: 0.46 mmHg LVOT Diameter: 2.03 cm LVOT VTI: 7.68 cm LVOT Area: 3.24 cm^2 LVOT SV:24.84 ml LVOT CO: 2.21 l/min LVOT CI: 0.91 l/min/m^2[facility] HospitalECG 12 [id number] 13:51:46Interface, External Ris In - 01/18/2020 1:51 PM CSTVentricular Rate 94 BPMAtrial Rate 94 BPMP-R Interval 232 msQRS Duration 120 msQ-T Interval 392 msQTC Calculation(Bazett) 490 msP Jackson 55 degreesR Jackson -81 degreesT Jackson 87 degreesSinus rhythm with 1st degree A-V blockLeft anterior fascicular blockRight bundle branch blockPossible Anterolateral infarct , age undeterminedProlonged QTAbnormal ECGNo previous ECGs availableConfirmed by MD DESI, CHELA ([id number]) on 01/18/2020 1:51:43 [facility] 2020-01-18 13:31:00 Test Item Value Reference Range Interpretation Comments POC-GLUCOSE METER 306 mg/dL 70-110 H : Notified RN/: (ROBBY) (test code = TESTED AT [place] [id number] 1538) [facility], [address]: Director Digital Communications/Techni dc ID = [id number] for ZABRINA WARD [id number] 13:06:00 Test Item Value Reference Range Interpretation Comments MAGNESIUM (ROBBY) 1.6 mg/dL 1.6-2.6 Specimen slightly (test code = 627) hemolyzed Director Digital Communications ID - CASS MPOCT-GLUCOSE [id number] 12:56:00 Test Item Value Reference Range Interpretation Comments POC-GLUCOSE METER 267 mg/dL 70-110 H : TESTED A T [facility] 67 (ROBBY) (test code = [employer] [facility], 1538) [address]: Director Digital Communications/Techni dc ID = [id number] for CHANDA LEÓN Respiratory Panel [id number] 10:14:00 Test Item Value Reference Range Interpretation Comments Human Metapneumovirus Not detected Not detected, (test code = 63260-1) Equivocal Rhinovirus (test code = Not detected Not detected, 81598-0) Equivocal INFLUENZA A (NO Not detected Not detected, SUBTYPE) (test code = Equivocal 94804-5) Influenza A subtype H1 (test code = 78888-5) Influenza A Subtype H3 (test code = 63656-5) Influenza A Subtype H1-2009 (test code = 85917-5) Influenza B (test code Not detected Not detected, = 54703-8) Equivocal Respiratory Syncytial Not detected Not detected, Virus (test code = Equivocal 63465-8) Parainfluenza Virus 1 Not detected Not detected, (test code = 48745-1) Equivocal Parainfluenza Virus 2 Not detected Not detected, (test code = 73194-6) Equivocal Parainfluenza virus 3 Not detected Not detected, (test code = 62773-5) Equivocal Parainfluenza Virus 4 Not detected Not detected, (test code = 12236-5) Equivocal Adenovirus (test code = Not detected Not detected, 80219-4) Equivocal Coronavirus 229E (test Not detected Not detected, code = 57159-8) Equivocal Coronavirus HKU1 (test Not detected Not detected, code = 37250-0) Equivocal Coronavirus NL63 (test Not detected Not detected, code = 34926-6) Equivocal Coronavirus OC43 (test Not detected Not detected, code = 66419-7) Equivocal Bordetella Pertussis Not detected Not detected, (test code = 50709-1) Equivocal Chlamydophila Not detected Not detected, Pneumoniae (test code = Equivocal 49689-0) Mycoplasma Pneumoniae Not detected Not detected, (test code = 67615-8) Equivocal ROMÁN (test code = ROMÁN) Other viruses and bacteria not targeted by [...] [facility] Molecular Diagnostics Laboratory using the SampleOn IncArray Respiratory Panel. It is FDA cleared and has been verified and approved by the [facility] Molecular Diagnostics Laboratory for clinical use on nasopharyngeal swab specimens. The performance of the FilmArray RP has not been established in individuals who received influenza vaccine. Recent administration of a nasal influenza vaccine may cause false positive results for Influenza A and/orInfluenza B. [facility] HospitalRESPIRATORY PANEL [id number] 10:14:00 Test Item Value Reference Range Interpretation Comments HUMAN METAPNEUMOVIRUS Not detected Not detected, (BEAKER) (test code = 2683) Equivocal RHINOVIRUS (BEAKER) (test Not detected Not detected, code = 2684) Equivocal INFLUENZA A (BEAKER) (test Not detected Not detected, code = 2685) Equivocal INFLUENZA A (NO SUBTYPE) (test code = 3606) INFLUENZA A SUBTYPE H1 (BEAKER) (test code = 2686) INFLUENZA A SUBTYPE H3 (BEAKER) (test code = 2687) INFLUENZA A SUBTYPE H1-2009 (BEAKER) (test code = 3198) INFLUENZA B (BEAKER) (test Not detected Not detected, code = 2688) Equivocal RESPIRATORY SYNCYTIAL VIRUS Not detected Not detected, (BEAKER) (test code = 3199) Equivocal PARAINFLUENZA VIRUS 1 Not detected Not detected, (BEAKER) (test code = 2691) Equivocal PARAINFLUENZA VIRUS 2 Not detected Not detected, (BEAKER) (test code = 2692) Equivocal PARAINFLUENZA VIRUS 3 Not detected Not detected, (BEAKER) (test code = 2693) Equivocal PARAINFLUENZA VIRUS 4 Not detected Not detected, (BEAKER) (test code = 3200) Equivocal ADENOVIRUS (BEAKER) (test Not detected Not detected, code = 2694) Equivocal CORONAVIRUS 229E (BEAKER) Not detected Not detected, (test code = 3201) Equivocal CORONAVIRUS HKU1 (BEAKER) Not detected Not detected, (test code = 3202) Equivocal CORONAVIRUS NL63 (BEAKER) Not detected Not detected, (test code = 3203) Equivocal CORONAVIRUS OC43 (BEAKER) Not detected Not detected, (test code = 3204) Equivocal BORDETELLA PERTUSSIS Not detected Not detected, (BEAKER) (test code = 3205) Equivocal CHLAMYDOPHILA PNEUMONIAE Not detected Not detected, (BEAKER) (test code = 3206) Equivocal MYCOPLASMA PNEUMONIAE Not detected Not detected, (BEAKER) (test code = 3207) Equivocal Other viruses and bacteria not targeted by [...] [facility]ENTER Molecular Diagnostics Laboratory using the SampleOn IncArray Respiratory Panel. It is FDA cleared and has been verified and approved by the [facility] Molecular Diagnostics Laboratory for clinical use on nasopharyngeal swab specimens.The performance of the FilmArrayRP has not been established in individuals who received influenza vaccine. Recent administration ofa nasal influenza vaccine may cause false positive results for Influenza A and/orInfluenza B.POCT-GLUCOSE [id number] 09:44:00 Test Item Value Reference Range Interpretation Comments POC-GLUCOSE METER 281 mg/dL 70-110 H : TESTED A T [facility] 6720 (BEAKER) (test code = [employer] [place], 1538) [address]: Director Digital Communications/Techni dc ID = [id number] for CHANDA LEÓN Troponin [id number] 09:35:00 Test Item Value Reference Range Interpretation Comments Troponin I (test code = 0.10 ng/mL 0-0.03 H 59660-3) ROMÁN (test code = ROMÁN) Troponin I (TnI) levels must be interpreted [...] failure, acidosis, acute neurological disease, and persistent tachyarrhythmia.Opera tor ID - CASS M Lab Interpretation (test Abnormal code = 21884-4) [facility] [id number] 09:35:00 Test Item Value Reference Range Interpretation Comments TROPONIN I (BEAKER) (test code = 0.10 ng/mL 0.00-0.03 H 397) Troponin I (TnI) levels must be interpreted [...] failure, acidosis, acute neurological disease, and persistent tachyarrhythmia.Director Digital Communications ID - CASS MHemoglobin A1c 2020-01-18 08:46:00 Test Item Value Reference Range Interpretation Comments Hemoglobin A1C (test code = 4548-4) 13.6 % 4.3-6.1 H Lab Interpretation (test code = Abnormal 86572-6) [facility]HEMOGLOBIN [id number] 08:46:00 Test Item Value Reference Range Interpretation Comments HEMOGLOBIN A1C (BEAKER) (test code = 13.6 % 4.3-6.1 H 368) RAD, CHEST, 1 VIEW, NON [id number] 06:51:00Reason for exam:->CHFShould this be performed at [...] contours. Additional findings: None. Signed: Christa Coley Verified Date/Time: 01/18/2020 06:51:28 XR chest 1 view portable / [id number] 06:51:00 Interface, External Ris In - 01/18/2020 6:54 AM CSTFINAL REPORT RAD, CHEST, 1 VIEW, NON DEPT [...] airspace consolidation. No sizable pleural effusion. No pneumothorax.Heartand mediastinum: Stable contours. Additional findings: None. Signed: Christa Coley Verified Date/Time: 01/18/2020 06:51:28 [facility] TROPONIN [id number] 00:24:00 Test Item Value Reference Range Interpretation Comments TROPONIN I (BEAKER) (test code = 0.20 ng/mL 0.00-0.03 [facility]) Troponin I (TnI) levels must be interpreted [...] failure, acidosis, acute neurological disease, and persistent tachyarrhythmia.Director Digital Communications ID - BSB-TYPE NATRIURETIC FACTOR (BNP)2020-01-18 00:15:00 Test Item Value Reference Range Interpretation Comments B-TYPE NATRIURETIC PEPTIDE 2998 pg/mL 0-100 H (BEAKER) (test code = 700) Director Digital Communications ID - BSBASIC METABOLIC [id number] 00:14:00 Test Item Value Reference Range Interpretation Comments SODIUM (BEAKER) (test 132 meq/L 136-145 L code = 381) POTASSIUM (BEAKER) 4.0 meq/L 3.5-5.1 Specimen slightly (test code = 379) hemolyzed CHLORIDE (BEAKER) 104 meq/L 98-107 (test code = 382) CO2 (BEAKER) (test 17 meq/L 22-29 L code = 355) BLOOD UREA NITROGEN 33 mg/dL 7-21 H (BEAKER) (test code = 354) CREATININE (BEAKER) 1.34 mg/dL 0.57-1.25 H Specimen slightly (test code = 358) hemolyzed GLUCOSE RANDOM 264 mg/dL 70-105 H (BEAKER) (test code = 652) CALCIUM (BEAKER) 8.8 mg/dL 8.4-10.2 (test code = 697) EGFR (BEAKER) (test INSUFFIC IENT CLINICAL code = 1092) DATA TO CALCULA TE ESTIMATED GFR. Director Digital Communications ID - BSLipid [id number] 00:07:00 Test Item Value Reference Range Interpretation Comments Triglycerides (test 82 mg/dL Specimen code = 2571-8) slightly hemolyzed Cholesterol (test 118 mg/dL Specimen code = 2093-3) slightly hemolyzed HDL (test code = 42 mg/dL 5-9) LDL Calculated (test 60 mg/dL code = 93481-0) ROMÁN (test code = Triglyceride ROMÁN) Reference Range: Low Risk <150 Borderline 150-199 High Risk 200-499 Very High Risk >=500 Cholesterol Reference Range: Low Risk <200 Borderline 200-239 High Risk >240 HDL Cholesterol Reference Range: Low Risk >=60 High Risk <40 LDL Cholesterol Reference Range: Optimal <100 Near Optimal 100-129 Borderline 130-159 High 160-189 Very High >=190 Director Digital Communications ID - BS [facility]Phosphorus2020-02-25 00:07:00 Test Item Value Reference Range Interpretation Comments Phosphorus (test code 4.7 mg/dL 2.3-4.7 Specim en = 2777-1) slightly hemolyzed ROMÁN (test code = ROMÁN) Director Digital Communications ID - BS Lab Interpretation Normal (test code = 74693-2) [facility]MAGNESIUM2020-02-25 00:07:00 Test Item Value Reference Range Interpretation Comments MAGNESIUM (BEAKER) 1.1 mg/dL 1.6-2.6 L Specimen slightly (test code = 627) hemolyzed Director Digital Communications ID - [id number] 00:07:00 Test Item Value Reference Range Interpretation Comments PHOSPHORUS (BEAKER) 4.7 mg/dL 2.3-4.7 Specimen slightly (test code = 604) hemolyzed Director Digital Communications ID - BSLIPID [id number] 00:07:00 Test Item Value Reference Range Interpretation Comments TRIGLYCERIDES (BEAKER) 82 mg/dL Speci men slightly (test code = 540) hemolyzed CHOLESTEROL (BEAKER) 118 mg/dL Specime n slightly (test code = 631) hemolyzed HDL CHOLESTEROL (BEAKER) 42 mg/dL (test code = 976) LDL CHOLESTEROL 60 mg/dL CALCULATED (BEAKER) (test code = 633) Triglyceride Reference Range: Low Risk <150 Borderline 150-199 High Risk 200-499 Very High Risk >=500Cholesterol Reference Range: Low Risk <200 Borderline 200-239 High Risk >240HDL Cholesterol Reference Range: Low Risk >=60 High Risk <40LDL Cholesterol Reference Range: Optimal <100 Near Optimal 100-129 Borderline 130-159 High 160-189 Very High >=190 Director Digital Communications ID - [id number] 23:50:00 Test Item Value Reference Range Interpretation Comments Protime (test code = 14.9 11.9- 14.2 H 5902-2) seconds INR (test code = 1.2 <=5.9 6301-6) PTT (test code = 31.5 22.5- 36.0 52099-0) seconds ROMÁN (test code = ROMÁN) Effective 04/21/2019: PT Reference Range ChangeNew: 11.9-14.2 Previous: 11.7-14.7 RECOMMENDED COUMADIN/WARFARIN INR THERAPY RANGESSTANDARD DOSE: 2.0-3.0 Includes: PROPHYLAXIS for venous thrombosis, systemic embolization; TREATMENT for venous thrombosis and/or pulmonary embolus.HIGH RISK: Target INR is 2.5-3.5 for patients wiht mechanical heart valves. Lab Interpretation Abnormal (test code = 29355-6) [facility] HospitalPT/[id number] 23:50:00 Test Item Value Reference Range Interpretation Comments PROTIME (BEAKER) (test code = 14.9 seconds 11.9-14.2 H 759) INR (BEAKER) (test code = 370) 1.2 <=5.9 PARTIAL THROMBOPLASTIN TIME 31.5 seconds 22.5-36.0 (BEAKER) (test code = 760) Effective 04/21/2019: PT Reference Range ChangeNew: 11.9-14.2 Previous: 11.7- 14.7RECOMMENDED COUMADIN/WARFARIN INR THERAPY RANGESSTANDARD DOSE: 2.0-3.0 Includes: PROPHYLAXIS for venous thrombosis, systemic embolization; TREATMENT for venous thrombosis and/or pulmonary embolus.HIGH RISK: Target INR is2.5-3.5 for patients wiht mechanical heart valves.CBC with platelet count + automated [id number] 23:42:00 Test Item Value Reference Range Interpretation Comments WBC (test code = 6690-2) 11.4 3.5- 10.5 K/L H RBC (test code = 789-8) 4.24 4.63- 6.08 M/L L MCHC (test code = 786-4) 34.4 32.3- 36.5 GM/DL L Hematocrit (test code = 4544-3) 38.9 % 40.1-51 L MCV (test code = 787-2) 91.7 fL 79-92.2 MCH (test code = 785-6) 31.6 pg 25.7-32.2 RDW (test code = 788-0) 12.9 % 11.6-14.4 Platelets (test code = 777-3) 248 150- 450 K/CU MM MPV (test code = 70547-1) 9.9 fL 9.4-12.4 nRBC (test code = 413) 0 0- 0 /100 WBC % Neutros (test code = 429) 52 % % Lymphs (test code = 430) 38 % % Monos (test code = 431) 6 % % Eos (test code = 432) 2 % % Baso (test code = 437) 1 % # Neutros (test code = 670) 5.93 1.78- 5.38 K/L H # Lymphs (test code = 414) 4.35 1.32- 3.57 K/L H # Monos (test code = 415) 0.67 0.30- 0.82 K/L # Eos (test code = 416) 0.27 0.04- 0.54 K/L # Baso (test code = 417) 0.12 0.01- 0.08 K/L H Immature Granulocytes-Relative 0 % 0-1 (test code = 2801) Lab Interpretation (test code = Abnormal 88711-5) [facility] W/PLT COUNT & AUTO [id number] 23:42:00 Test Item Value Reference Range Interpretation Comments WHITE BLOOD CELL COUNT (BEAKER) 11.4 K/ L 3.5-10.5 H (test code = 775) RED BLOOD CELL COUNT (BEAKER) 4.24 M/ L 4.63-6.08 L (test code = 761) HEMOGLOBIN (BEAKER) (test code = 13.4 GM/DL 13.7-17.5 L 410) HEMATOCRIT (BEAKER) (test code = 38.9 % 40.1-51.0 L 411) MEAN CORPUSCULAR VOLUME (BEAKER) 91.7 fL 79.0-92.2 (test code = 753) MEAN CORPUSCULAR HEMOGLOBIN 31.6 pg 25.7-32.2 (BEAKER) (test code = 751) MEAN CORPUSCULAR HEMOGLOBIN CONC 34.4 GM/DL 32.3-36.5 (BEAKER) (test code = 752) RED CELL DISTRIBUTION WIDTH 12.9 % 11.6-14.4 (BEAKER) (test code = 412) PLATELET COUNT (BEAKER) (test 248 K/CU MM 150-450 code = 756) MEAN PLATELET VOLUME (BEAKER) 9.9 fL 9.4-12.4 (test code = 754) NUCLEATED RED BLOOD CELLS 0 /100 WBC 0-0 (BEAKER) (test code = 413) NEUTROPHILS RELATIVE PERCENT 52 % (BEAKER) (test code = 429) LYMPHOCYTES RELATIVE PERCENT 38 % (BEAKER) (test code = 430) MONOCYTES RELATIVE PERCENT 6 % (BEAKER) (test code = 431) EOSINOPHILS RELATIVE PERCENT 2 % (BEAKER) (test code = 432) BASOPHILS RELATIVE PERCENT 1 % (BEAKER) (test code = 437) NEUTROPHILS ABSOLUTE COUNT 5.93 K/ L 1.78-5.38 H (BEAKER) (test code = 670) LYMPHOCYTES ABSOLUTE COUNT 4.35 K/ L 1.32-3.57 H (BEAKER) (test code = 414) MONOCYTES ABSOLUTE COUNT (BEAKER) 0.67 K/ L 0.30-0.82 (test code = 415) EOSINOPHILS ABSOLUTE COUNT 0.27 K/ L 0.04-0.54 (BEAKER) (test code = 416) BASOPHILS ABSOLUTE COUNT (BEAKER) 0.12 K/ L 0.01-0.08 H (test code = 417) IMMATURE GRANULOCYTES-RELATIVE 0 % 0-1 PERCENT (BEAKER) (test code = 7934)
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
--- OUTSIDE RECORDS SUMMARY | 2020-05-28 02:53 | XMS REPORT | Summary of Care ---
:1965 Author Organization [facility] Address [address] [place] [address] Care Team Providers Name Role Phone Chioma Murry MD Primary Care Provider Reason for Visit Reason Comments Refill Request Encounter Details Date Type Department Care Team Description 04/06/2020 Telephone [facility] Endocrinology- Lacie Daly MD Refill Request [address] Professional Office [address] [phone] [place] [address] [address] [place] [address] Allergies Active Allergy Reactions Severity Noted [...] artery times daily with disease involving meals. t[place]alip coronary artery of t[place] heart without angina pectoris furosemide 40 mg Take 1 tablet by 180 tablet 2 12/11/2018 Active tablet mouth every morning and evening. clopidogrel 75 mg Take 1 tablet by 90 tablet 3 12/11/2018 Active tabletIndications: mouth daily. Coronary artery disease involving t[place]alip coronary artery of t[place]ip heart without angina pectoris irbesartan 150 mg Take 1 tablet by 90 tablet 3 12/11/2018 Active tabletIndications: mouth at bedtime. Chronic combined systolic and diastolic heart failure isosorbide Take 1 tablet by 90 tablet 3 12/11/2018 A ctive mononitrate 60 mg 24 mouth daily. hr tabletIndications: Coronary artery disease involving t[place]alip coronary artery of t[place]al[place] heart without angina pectoris atorvastatin 40 mg Take 1 tablet by 90 tablet 3 01/01/2019 Active tabletIndications: mouth daily. 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 [place] [address] documented as of this encounter
[2020-05-28] MEDS ORDERED: NA CHLORIDE 0.9% 1,000 ML ONE (03:27)
[2020-05-28] MEDS ORDERED: LORazepam 2 MG/ML VIAL ONE (03:27)
[2020-05-28 03:43] LABS: Basophils % 1.2 % (0-1.3); Hematocrit 40.6 % (39.6-49.0); Lymphocytes % 16.7 % (15.3-44.8); MPV 8.7 fL (7.6-11.3); RBC Red Blood Cell Count 4.07 M/uL (4.33-5.43)
[2020-05-28 04:03] LABS: Albumin 3.4 g/dL (3.4-5.0); Bilirubin Direct 0.3 mg/dL (0-0.2); Bilirubin Total 0.9 mg/dL (0.2-1.0); Potassium 3.5 mmol/L (3.5-5.1); Protein, Total 7.6 g/dL (6.4-8.2)
--- NOTE | 2020-05-28 06:10 | EDPHYS ---
Physician Documentation [facility] Name: Nikos Corona Age: 54 yrs Sex: Male : 1965 Arrival Date: 05/28/2020 Time: 02:45 Bed 6 Private MD: ED Physician Faizan Lopez HPI: 05/28 03:09 This 54 yrs old Male presents to ER via Wheelchair with complaints of rn Constipation, Anxiety. 03:09 The patient presents with abdominal pain that is diffuse. Onset: The symptoms/episode rn began/occurred 1 month(s) ago. The symptoms do not radiate. The symptoms are described as crampy, intermittent. Modifying factors: The symptoms are alleviated by nothing, the symptoms are aggravated by nothing. Severity of pain: At its worst the pain was moderate in the emergency department the pain is unchanged. The patient has experienced similar episodes in the past. The patient has not recently seen a physician. Reports abd pain, diffuse, assoc with constipation, states very difficult to have bowel movements, sometimes small amounts, and sometimes just gas, no hx of intestinal blockage. Reports unable to get into PCP office for constipation and abd pain, and unable to get with psychiatrist for his anxiety. Stopped his anxiety medication recently because didn't feel like it was working, and states the constipation and abd pain is making his anxiety really bad. Denies chest pain, reports feels like his anxiety and not heart related. Reports gets worked up and emotional, feels trouble breathing during episode. No blood in stool. Reports made himself throw up the other day with his finger, didn't seem to help. . Historical: - Allergies: 03:10 Rifampin; rr5 03:10 Sulfa (Sulfonamide Antibiotics); rr5 - Home Meds: 03:10 Bumetanide Oral [Active]; Potassium Chloride Oral [Active]; mag oxide 40mg 1 tab PO BID rr5 [Active]; Lasix 40 mg 1 tab PO DAILY (EVENING) [Active]; clopidogrel 75 mg Oral tab 1 tab once daily [Active]; spironolactone 25 mg Oral tab 1 tab once daily [Active]; Zolpidem Tartrate Oral [Active]; Albuterol Inhl [Active]; Hydralazine Oral [Active]; atorvastatin Oral 1 tab once daily [Active]; pantoprazole oral oral [Active]; carvedilol oral oral [Active]; - PMHx: 03:10 Anxiety; CAD; CHF; Diabetes - NIDDM; DVT; Hyperlipidemia; Hypertension; Myocardial rr5 infarction; neuropathy; osteomyelitis; PTSD; PVD; ADD/ADHD; - PSHx: 03:10 Cholecystectomy; feet surgery; femur surgery; rr5 - Immunization history:: Adult Immunizations unknown. - Social history:: Smoking status: Patient reports the use of cigarette tobacco products, smokes one pack cigarettes per day. Patient/guardian denies using alcohol, street drugs. - Family history:: not pertinent. - Hospitalizations: : No recent hospitalization is reported. ROS: 03:09 Constitutional: Negative for fever, chills, and weight loss, Eyes: Negative for injury, rn pain, redness, and discharge, Cardiovascular: Negative for chest pain, + edema, Respiratory: Negative for cough, wheezing, and pleuritic chest pain, Abdomen/GI: Negative for nausea, vomiting, diarrhea MS/Extremity: Negative for injury and deformity, Skin: Negative for injury, rash, and discoloration, Neuro: Negative for headache, weakness, numbness, tingling, and seizure. Exam: 03:09 Constitutional: This is a well developed, well nourished patient who is awake, alert, rn tearful and crying, hyperventilating ENT: MMM Cardiovascular: Regular rate and rhythm. No pulse deficits. Respiratory: + hyperventilating and crying, no retractions, able to slow down to speak, then starts to cry again. Abdomen/GI: soft, + tender bilateral lower quadrants, no rebound. Skin: Warm, dry MS/ Extremity: Pulses equal, no cyanosis. Neurovascular intact. Full, normal range of motion. Equal circumference. 2+ pitting edema bilateral lower ext. Neuro: Awake and alert, GCS 15 Vital Signs: 03:00 BP 120 / 87; Pulse 100; Resp 30; Temp 97.8; Pulse Ox 98% ; Weight 115.67 kg; Height 6 rr5 ft. 1 in. (185.42 cm); Pain 8/10; 03:37 BP 112 / 88; Pulse 90; Resp 19; Pulse Ox 100% ; rr5 04:50 BP 113 / 90; Pulse 98; Resp 17; Pulse Ox 99% on R/A; rr5 06:33 BP 141 / 85; Pulse 90; Resp 20; Pulse Ox 98% ; rr5 03:00 Body Mass Index 33.64 (115.67 kg, 185.42 cm) rr5 MDM: 02:47 Patient medically screened. rn 06:08 Differential diagnosis: bowel obstruction, non-specific abd pain, constipation, rn constipation 2/2 chronic pain medication. Data reviewed: vital signs, nurses notes, lab test result(s), radiologic studies, CT scan, and as a result, I will discharge patient. Counseling: I had a detailed discussion with the patient and/or guardian regarding: the historical points, exam findings, and any diagnostic results supporting the discharge/admit diagnosis, lab results, radiology results, the need for outpatient follow up, to return to the emergency department if symptoms worsen or persist or if there are any questions or concerns that arise at home. Response to treatment: the patient's symptoms have mildly improved after treatment, and as a result, I will discharge patient. Special discussion: Based on the patient's Hx, exam, and Dx evaluation, there is no indication for emergent surgery or inpatient Tx. It is understood by the patient/guardian that if the Sx's persist or worsen they need to return immediately for re-evaluation. I discussed with the patient/guardian in detail that at this point there is no indication for admission to the hospital. It is understood, however, that if the symptoms persist or worsen the patient needs to return immediately for re-evaluation. ED course: CT with oral and IV contrat neg for acute findings, nothing in lungs, no bowel obstruction or impaction. Will dc home with pcp and psychiatric f/u. Spoke with him regarding pain medication and dehydration being most likely cause of his chronic constipation. . 05/28 03:08 Order name: Basic Metabolic Panel; Complete Time: 04:12 rn 05/28 03:08 Order name: CBC with Diff; Complete Time: 04:12 rn 05/28 03:08 Order name: Hepatic Function; Complete Time: 04:12 rn 05/28 03:08 Order name: Lipase; Complete Time: 04:12 rn 05/28 03:08 Order name: CT Abd/Pelvis - PO and IV Contrast rn 05/28 03:08 Order name: BNP; Complete Time: 04:12 rn 05/28 03:08 Order name: IV Saline Lock; Complete Time: 03:24 rn 05/28 03:08 Order name: Labs collected and sent; Complete Time: 03:24 rn 05/28 03:08 Order name: EKG; Complete Time: 03: rn 05/28 03:08 Order name: EKG - Nurse/Tech; Complete Time: 03:24 rn Administered Medications: 03:24 Drug: NS 0.9% 1000 ml Route: IV; Rate: 1000 ml; Site: right upper arm; rr5 04:10 Follow up: Response: No adverse reaction; IV Status: Completed infusion; IV Intake: rr5 1000ml 03:24 Drug: Ativan 1 mg Route: IVP; Site: right upper arm; rr5 04:30 Follow up: Response: No adverse reaction rr5 Disposition: 05/28/20 06:10 Discharged to Home. Impression: Constipation, unspecified, Anxiety disorder, unspecified. - Condition is Stable. - Discharge Instructions: Panic Attacks, Constipation, Adult, Generalized Anxiety Disorder. - Medication Reconciliation Form, Thank You Letter, Antibiotic Education, Prescription Opioid Use form. - Follow up: Private Physician; When: As needed; Reason: Recheck today's complaints, Re-evaluation by your physician. - Problem is an ongoing problem. - Symptoms have improved. Signatures: Dispatcher [employer] EDMS Faizan Lopez MD MD rn Roque, Raymond, RN RN rr5 Corrections: (The following items were deleted from the chart) 07:00 06:10 05/28/2020 06:10 Discharged to Home. Impression: Constipation, unspecified; rr5 Anxiety disorder, unspecified. Condition is Stable. Forms are Medication Reconciliation Form, Thank You Letter, Antibiotic Education, Prescription Opioid Use. Follow up: Private Physician; When: As needed; Reason: Recheck today's complaints, Re-evaluation by your physician. Problem is an ongoing problem. Symptoms have improved. rn
--- NOTE | 2020-05-28 06:10 | ER ---
Nurse's Notes [facility] Name: Nikos Corona Age: 54 yrs Sex: Male : 1965 Arrival Date: 05/28/2020 Time: 02:45 Bed 6 Private MD: Diagnosis: Constipation, unspecified;Anxiety disorder, unspecified Presentation: 05/28 03:00 Chief complaint: Patient states: I have not pass stool for the last 30 days and I rr5 cannot breath because of my anxiety. 03:00 Coronavirus screen: Proceed with normal triage. Ebola Screen: Patient negative for rr5 fever greater than or equal to 101.5 degrees Fahrenheit, and additional compatible Ebola Virus Disease symptoms Patient denies exposure to infectious person. Patient denies travel to an Ebola-affected area in the 21 days before illness onset. Initial Sepsis Screen: Does the patient meet any 2 criteria? RR > 20 per min. Yes Does the patient have a suspected source of infection? No. Patient's initial sepsis screen is negative. Risk Assessment: Do you want to hurt yourself or someone else? Patient reports no desire to harm self or others. Onset of symptoms was April 2020. 03:00 Method Of Arrival: Wheelchair rr5 03:00 Acuity: YESI 3 rr5 Historical: - Allergies: 03:10 Rifampin; rr5 03:10 Sulfa (Sulfonamide Antibiotics); rr5 - Home Meds: 03:10 Bumetanide Oral [Active]; Potassium Chloride Oral [Active]; mag oxide 40mg 1 tab PO BID rr5 [Active]; Lasix 40 mg 1 tab PO DAILY (EVENING) [Active]; clopidogrel 75 mg Oral tab 1 tab once daily [Active]; spironolactone 25 mg Oral tab 1 tab once daily [Active]; Zolpidem Tartrate Oral [Active]; Albuterol Inhl [Active]; Hydralazine Oral [Active]; atorvastatin Oral 1 tab once daily [Active]; pantoprazole oral oral [Active]; carvedilol oral oral [Active]; - PMHx: 03:10 Anxiety; CAD; CHF; Diabetes - NIDDM; DVT; Hyperlipidemia; Hypertension; Myocardial rr5 infarction; neuropathy; osteomyelitis; PTSD; PVD; ADD/ADHD; - PSHx: 03:10 Cholecystectomy; feet surgery; femur surgery; rr5 - Immunization history:: Adult Immunizations unknown. - Social history:: Smoking status: Patient reports the use of cigarette tobacco products, smokes one pack cigarettes per day. Patient/guardian denies using alcohol, street drugs. - Family history:: not pertinent. - Hospitalizations: : No recent hospitalization is reported. Screenin:25 Abuse screen: Denies threats or abuse. Denies injuries from another. Nutritional rr5 screening: No deficits noted. Tuberculosis screening: No symptoms or risk factors identified. Fall Risk IV access (20 points). Gait- Impaired (20 pts.). Total Baron Fall Scale indicates Low Risk Score (25-44 pts). Fall prevention measures have been instituted. Side Rails Up X 2 Placed close to Nursing Station Frequent Obs/Assesments occuring As available Patient and Family Educated on Fall Prevention Program and strategies. Assessment: 03:00 General: Appears in no apparent distress. uncomfortable, Behavior is cooperative, rr5 appropriate for age, anxious. 03:00 Pain: Complains of pain in abdomen Pain currently is 10 out of 10 on a pain scale. rr5 Quality of pain is described as aching, Pain began gradually, Is intermittent. Neuro: Level of Consciousness is awake, alert, obeys commands, Oriented to person, place, time, situation, Appropriate for age. Cardiovascular: Capillary refill < 3 seconds Patient's skin is warm and dry. Edema is 2+ to left foot and right foot. Respiratory: Reports I cant breath when I am having anxiety attack Airway is patent Respiratory effort is even, unlabored, Respiratory pattern is regular, symmetrical. GI: Abdomen is round non-distended, Bowel sounds Abdomen is tender to palpation Reports lower abdominal pain, upper abdominal pain, bloating, constipation, gaseousness, indigestion. : No signs and/or symptoms were reported regarding the genitourinary system. EENT: No signs and/or symptoms were reported regarding the EENT system. Derm: Skin with poor turgor Skin temperature is warm. Musculoskeletal: Capillary refill < 3 seconds. 04:00 Reassessment: Patient appears in no apparent distress at this time. Patient is alert, rr5 oriented x 3, equal unlabored respirations, skin warm/dry/pink. for CT scan with contrast after 1.5 hours. 05:00 Reassessment: Patient appears in no apparent distress at this time. Patient and/or rr5 family updated on plan of care and expected duration. Pain level reassessed. transferred to CT via stretcher. 05:23 Reassessment: Patient appears in no apparent distress at this time. back from CT scan. rr5 06:00 Reassessment: Patient appears in no apparent distress at this time. Patient is alert, rr5 oriented x 3, equal unlabored respirations, skin warm/dry/pink. positive urine using urinal assisted at bedside. awaiting for CT result. 06:32 Reassessment: Patient appears in no apparent distress at this time. Patient is alert, rr5 oriented x 3, equal unlabored respirations, skin warm/dry/pink. reassess by ED provider explained the result of CT scan and the plan of care. discharge instruction given and explained without complaints made. awaiting for his ride home. Vital Signs: 03:00 BP 120 / 87; Pulse 100; Resp 30; Temp 97.8; Pulse Ox 98% ; Weight 115.67 kg; Height 6 rr5 ft. 1 in. (185.42 cm); Pain 8/10; 03:37 BP 112 / 88; Pulse 90; Resp 19; Pulse Ox 100% ; rr5 04:50 BP 113 / 90; Pulse 98; Resp 17; Pulse Ox 99% on R/A; rr5 06:33 BP 141 / 85; Pulse 90; Resp 20; Pulse Ox 98% ; rr5 03:00 Body Mass Index 33.64 (115.67 kg, 185.42 cm) rr5 ED Course: 02:45 Patient arrived in ED. bp1 02:46 Reid Elliott, BLANCA is Primary Nurse. rr5 02:47 Faizan Lopez MD is Attending Physician. rn 03:06 Triage completed. rr5 03:10 Arm band placed on right wrist. rr5 03:10 Patient has correct armband on for positive identification. Placed in gown. Bed in low rr5 position. Call light in reach. Side rails up X2. surveillance system monitor on. Pulse ox on. NIBP on. 03:30 Inserted saline lock: 20 gauge in right upper arm, using aseptic technique. Blood oe collected. 04:41 Radiology exam delayed due to Patient finished oral contrast at 0340. kw1 05:34 CT Abd/Pelvis - PO and IV Contrast In Process Unspecified. EDMS 06:33 No provider procedures requiring assistance completed. IV discontinued, intact, rr5 bleeding controlled, No redness/swelling at site. Pressure dressing applied. Administered Medications: 03:24 Drug: NS 0.9% 1000 ml Route: IV; Rate: 1000 ml; Site: right upper arm; rr5 04:10 Follow up: Response: No adverse reaction; IV Status: Completed infusion; IV Intake: rr5 1000ml 03:24 Drug: Ativan 1 mg Route: IVP; Site: right upper arm; rr5 04:30 Follow up: Response: No adverse reaction rr5 Intake: 04:10 IV: 1000ml; Total: 1000ml. rr5 06:07 PO: 0ml; Total: 1000ml. rr5 Output: 06:07 Urine: 250ml (Voided); Total: 250ml. rr5 Outcome: 06:10 Discharge ordered by . rn 06:33 Condition: stable rr5 06:33 Discharge instructions given to patient, Instructed on discharge instructions, follow up and referral plans. Demonstrated understanding of instructions, follow-up care. 07:00 Discharged to home via wheelchair, with friend. rr5 07:00 Patient left the ED. rr5 Signatures: Dispatcher [employer] EDMS Faizan Lopez MD MD rn Espinosa, Orlando oe Wilhelm, Kimberly kw1 Reid Elliott RN RN rr5 Jazmine Meza bp1
[2020-05-28 07:14] VITALS: TEMP 97.8
[2020-05-28 07:30] VITALS: BP 141/85; O2SAT 98
--- NOTE | 2020-05-29 11:29 | RAD REPORT ---
EXAM DESCRIPTION: CT - Abdomen Pelvis W Contrast - 05/28/2020 7:17 am CLINICAL HISTORY: The patient is 54 years old and is Male; Abd pain;Constipation TECHNIQUE: Axial computed tomography images of the abdomen and pelvis with intravenous contrast. S agittal and coronal reformatted images were created and reviewed. This CT exam was performed using one or more of the following dose reduction techniques: automated exposure control, adjustment of t he mA and/or kV according to patient size, and/or use of iterative reconstruction technique. COMPARISON: No relevant prior studies available. FINDINGS: ARTIFACTS: The exam is suboptimal secondary to motion artifact. LUNG BASES: Unremarkable. No mass. No consolidation. ABDOMEN: LIVER: Unremarkable. No mass. GALLBLADDER AND BILE DUCTS: Surgical clips are present in the right upper quadrant, consistent w ith previous cholecystectomy. PANCREAS: The pancreas is atrophic with mild fatty infiltration. SPLEEN: Unremarkable. ADRENALS: Unremarkable. No mass. KIDNEYS AND URETERS: Unremarkable. The kidneys enhance symmetrically. No obstructing renal or ur eteral calculus is seen. No hydronephrosis or hydroureter. No perinephric fluid or stranding. STOMACH AND BOWEL: The stomach is distended with oral contrast and food contents. Oral contrast is present within the proximal small bowel. The small bowel is normal in caliber. A moderate amount s tool is present throughout the colon. There is no mucosal thickening or evidence of bowel obstruction . PELVIS: APPENDIX: The appendix is normal in caliber without surrounding inflammation. BLADDER: Unremarkable. No mass. REPRODUCTIVE: Unremarkable as visualized. ABDOMEN and PELVIS: INTRAPERITONEAL SPACE: Unremarkable. No free air. No significant fluid collection. BONES/JOINTS: Postsurgical change of the proximal right femur is present. Multilevel degenerat pamela change of the spine is present. SOFT TISSUES: The soft tissues are normal. VASCULATURE: Atherosclerosis of the vasculature is present. The vessels are normal in caliber. No abdominal aortic aneurysm. LYMPH NODES: Unremarkable. No enlarged lymph nodes. IMPRESSION: No acute findings on this contrasted CT of the abdomen and pelvis to explain the patient 's symptoms. Electronically signed by: Delicia Charles MD 05/28/2020 5:56 AM CDT Due to temporary technical issues with the PACS/Fluency reporting system, reports are being signed by the in house radiologist without review as a courtesy to ensure prompt reporting. The interpreting r adiologist is fully responsible for the content of the report.
== END 2020-05-28 07:00 | disposition home or self-care (01) ==
LOC: ER 02:41
DX: K59.00 Constipation, unspecified (principal); F41.9 Anxiety disorder, unspecified; I10 Essential (primary) hypertension; E11.9 Type 2 diabetes mellitus without complications; I50.9 Heart failure, unspecified; E78.5 Hyperlipidemia, unspecified; Z86.718 Personal history of other venous thrombosis and embolism; Z88.1 Allergy status to other antibiotic agents; Z88.2 Allergy status to sulfonamides
CPT/HCPCS: 96361; 93005; 85025; 80048; 36415; 80076; 83690; 83880; 74177; 96374; 99284; Q9967; J7030

== ENCOUNTER 2020-06-23 14:27 | Inpatient (IN) | payer OTHER ==
--- OUTSIDE RECORDS SUMMARY | 2020-06-23 14:37 | XMS REPORT | Clinical Summary ---
:1965 Author Organization [facility] Address [address] [place] [address] Care Team Providers Name Role Phone Sami Alexander MD Primary Care Provider [phone] Alon Woody Unavailable Allergies Active Allergy [...] diabetes mellitus treated with insulin (HCC) after 06/23/2019 Social History Tobacco Use Types Packs/Day Years [...] Taken Blood Pressure 104/65 01/21/2020 9:15 AM [facility]TER Pulse 84 01/21/2020 9:15 AM [facility] Temperature 36.4 C (97.6 F) 01/21/2020 7:00 AM [facility] Respiratory Rate 18 01/21/2020 7:00 AM [facility] Oxygen Saturation 98% 01/21/2020 7:00 AM [facility] Inhaled Oxygen Concentration 35% 01/19/2020 4:00 AM [facility] Weight 114.8 kg (253 lb 1.6 oz) 01/20/2020 5:5 8 AM [facility] Height 185.4 cm (6' 1") 01/18/2020 12:00 AM [facility] Body Mass Index 33.39 01/20/2020 5:58 AM [facility]TER Plan of Treatment Not on file Procedures Procedure Name Priority Date/Time Associated Comments Diagnosis REPORT OF PROCEDURE - 01/24/2020 11:11 ENDOSCOPY SCAN AM [facility] RHYTHM STRIP - SCAN 01/24/2020 11:11 AM [facility] POCT-GLUCOSE METER Routine 01/21/2020 8:24 Resul ts for this AM [facility] procedure are i n the results section. B-TYPE NATRIURETIC Routine 01/21/2020 6:33 Resul ts for this FACTOR (BNP) AM [facility] procedure are i n the results section. MAGNESIUM Routine 01/21/2020 6:33 Results for this AM [facility] procedure are i n the results section. CBC (HEMOGRAM ONLY) Routine 01/21/2020 6:33 Resu lts for this AM [facility] procedure are i n the results section. BASIC METABOLIC PANEL Routine 01/21/2020 6:33 Re sults for this (7) AM [facility] procedure are i n the results section. POCT-GLUCOSE METER Routine 01/21/2020 12:05 Resul ts for this AM [facility] procedure are i n the results section. PERIPHERAL VASCULAR 01/20/2020 9:24 REPORT - SCAN PM [facility] POCT-GLUCOSE METER Routine 01/20/2020 4:35 Resul ts for this PM [facility] procedure are i n the results section. POCT-GLUCOSE METER Routine 01/20/2020 12:35 Resul ts for this PM [facility] procedure are i n the results section. POCT-GLUCOSE METER Routine 01/20/2020 7:16 Resul ts for this AM [facility] procedure are i n the results section. MAGNESIUM Routine 01/20/2020 4:59 Results for this AM [facility] procedure are i n the results section. CBC (HEMOGRAM ONLY) Routine 01/20/2020 4:59 Resu lts for this AM [facility] procedure are i n the results section. BASIC METABOLIC PANEL Routine 01/20/2020 4:59 Re sults for this (7) AM [facility] procedure are i n the results section. POCT-GLUCOSE METER Routine 01/19/2020 10:29 Resul ts for this PM [facility] procedure are i n the results section. POCT-GLUCOSE METER Routine 01/19/2020 4:46 Resul ts for this PM [facility] procedure are i n the results section. POCT-GLUCOSE METER Routine 01/19/2020 12:58 Resul ts for this PM [facility] procedure are i n the results section. POCT-GLUCOSE METER Routine 01/19/2020 7:27 Resul ts for this AM [facility] procedure are i n the results section. TSH/FREE T4 IF Routine 01/19/2020 3:46 Results f or this INDICATED AM [facility] procedure are i n the results section. MAGNESIUM Routine 01/19/2020 3:46 Results for this AM [facility] procedure are i n the results section. CBC (HEMOGRAM ONLY) Routine 01/19/2020 3:46 Resu lts for this AM [facility] procedure are i n the results section. BASIC METABOLIC PANEL Routine 01/19/2020 3:46 Re sults for this (7) AM [facility] procedure are i n the results section. B-TYPE NATRIURETIC Routine 01/19/2020 3:46 Resul ts for this FACTOR (BNP) AM [facility] procedure are i n the results section. POCT-GLUCOSE METER Routine 01/18/2020 10:58 Resul ts for this PM [facility] procedure are i n the results section. ECHOCARDIOGRAM REPORT - 01/18/2020 9:22 SCAN PM [facility] VENOUS DOPPLER LEGS Routine 01/18/2020 6:23 Resu lts for this BILATERAL PM [facility] procedure are i n the results section. POCT-GLUCOSE METER Routine 01/18/2020 4:59 Resul ts for this PM [facility] procedure are i n the results section. POCT-GLUCOSE METER Routine 01/18/2020 1:19 Resul ts for this PM [facility] procedure are i n the results section. POCT-GLUCOSE METER Routine 01/18/2020 12:44 Resul ts for this PM [facility] procedure are i n the results section. 2D ECHO W/ DOPPLER NILSA 01/18/2020 12:07 Resul ts for this (CW/PW/COLOR) PM [facility] procedure are in the results section. POCT-GLUCOSE METER Routine 01/18/2020 9:31 Resul ts for this AM [facility] procedure are i n the results section. MAGNESIUM Add-On 01/18/2020 8:39 Results for this AM [facility] procedure are i n the results section. TROPONIN I Routine 01/18/2020 8:39 Results for this AM [facility] procedure are i n the results section. XR CHEST 1 VIEW Routine 01/18/2020 3:27 Results for this PORTABLE/BEDSIDE AM [facility] procedure a re in the results section. RESPIRATORY PANEL SLHS Routine 01/18/2020 1:29 R esults for this AM [facility] procedure are i n the results section. ECG 12-LEAD Routine 01/18/2020 12:51 AM [facility] Procedure Note - Interface, External Ris In - 01/18/2020 12:53 AM [facility] Ventricular Rate 94 BPM Atrial Rate 94 BPM P-R Interval 232 ms QRS Duration 120 ms Q-T Interval 392 ms QTC Calculation(Bazett) 490 ms P [place] 55 degrees R [place] -81 degrees T [place] 87 degrees Sinus rhythm with 1st degree A-V block Left anterior fascicular blo ck Possible Anterolateral infar ct , age undetermined Abnormal ECG ECG 12-LEAD Routine 01/18/2020 12:51 AM [facility] Resu lts for this procedure are i n the results section . CBC W/PLT COUNT & AUTO Routine 01/17/2020 11:24 PM [facility] Results for this DIFFERENTIAL procedure are i n the results section . LIPID PANEL Routine 01/17/2020 11:24 PM [facility] Resu lts for this procedure are i n the results section . HEMOGLOBIN A1C Routine 01/17/2020 11:24 PM [facility] Re sults for this procedure are i n the results section . TROPONIN I Routine 01/17/2020 11:24 PM [facility] Resu lts for this procedure are i n the results section . PT/APTT Routine 01/17/2020 11:24 PM [facility] Resu lts for this procedure are i n the results section . CBC W/PLT COUNT & AUTO Routine 01/17/2020 11:24 PM [facility] Results for this DIFFERENTIAL procedure are i n the results section . PHOSPHORUS Routine 01/17/2020 11:24 PM [facility] Resu lts for this procedure are i n the results section . B-TYPE NATRIURETIC FACTOR Routine 01/17/2020 11:24 PM [facility] Results for this (BNP) procedure are i n the results section . MAGNESIUM Routine 01/17/2020 11:24 PM [facility] Resu lts for this procedure are i n the results section . BASIC METABOLIC PANEL (7) Routine 01/17/2020 11:24 PM [facility] Results for this procedure are i n the results section . after 06/23/2019 Results EKG-SCANNED (01/24/2020 11:11 AM [facility]) Narrative Performed At This result has an attachment that is no t available. RHYTHM STRIP - SCAN (01/24/2020 11:11 AM [facility]) Narrative Performed At This result has an attachment that is no t available. POC-Glucose meter (01/21/2020 8:24 AM [facility]TER)Only the most recent of14 results within the time period is included. POC-Glucose Meter 164 (H)Comment: : TESTED 70 - 110 mg/dL [facility] [address] [facility] [address]: Medicine Technologist/Psychology Professor ID = [id number] for [facility] Blood Performing Organization Address City/State/Zipcode Phone Number [facility] [address] [place] [address] CENTER CBC (Hemogram only) (01/21/2020 6:33 AM [facility]TER)Only the most recent of3 results within the time period is included. WBC 8.6 3.5 - 10.5 K/L [facility] RBC 5.05 4.63 - 6.08 M/L [facility] Hemoglobin 15.6 13.7 - 17.5 GM/DL [facility] Hematocrit 45.5 40.1 - 51.0 % [facility] MCV 90.1 79.0 - 92.2 fL [facility] MCH 30.9 25.7 - 32.2 pg [facility] MCHC 34.3 32.3 - 36.5 GM/DL [facility] RDW 13.0 11.6 - 14.4 % [facility] Platelets 238 150 - 450 K/CU MM [facility] MPV 9.7 9.4 - 12.4 fL [facility] nRBC 0 0 - 0 /100 WBC [facility] Specimen Blood Performing Organization Address City/[facility]/Zipcode Phone Number [address] [address] CENTER B-type Natriuretic Factor (BNP) (01/21/2020 6:33 AM [facility]TER)Only the most recent of 3 resultswithin the time period is included. BNP 1,285 (H) 0 - 100 pg/mL [facility] Specimen Blood Narrative Performed At Medicine Technologist ID - PIAYA L [facility] Performing Organization Address City/[facility]/Zipcode Phone Number [address] [address] CENTER Magnesium (01/21/2020 6:33 AM [facility])Only the most recent of5 resultswithin the time period is included. Magnesium 1.3 (L) 1.6 - 2.6 mg/dL [facility] Specimen Blood Narrative Performed At Medicine Technologist ID - ADDIE L [facility] Performing Organization Address [facility]/Zipcode Phone Number [facility] [address] [place] [address] CENTER Basic Metabolic Panel (01/21/2020 6:33 AM [facility])Only the most recent of4 results within the time period is included. Sodium 139 136 - 145 meq/L [facility] Potassium 3.8 3.5 - 5.1 meq/L [facility] Chloride 96 (L) 98 - 107 meq/L [facility] CO2 33 (H) 22 - 29 meq/L [facility] BUN 23 (H) 7 - 21 mg/dL [facility] Creatinine 0.92 0.57 - 1.25 mg/dL [facility] Glucose 143 (H) 70 - 105 mg/dL [facility] Calcium 10.4 (H) 8.4 - 10.2 mg/dL [facility] EGFR Comment: INSUFFICIENT CLINICAL C [facility] DATA TO CALCULATE ESTIMATED [facility] GFR. Specimen Blood Narrative Performed At Medicine Technologist ID - ADDIE L [facility] Performing Organization Address City/[facility]/Zipcode Phone Number [facility] [address] [place] [address] CENTER PERIPHERAL VASCULAR REPORT - SCAN (01/20/2020 9:24 PM [facility]) Narrative Performed At This result has an attachment that is no t available. TSH/Free T4 If Indicated (01/19/2020 3:46 AM [facility]) TSH 0.71 0.35 - 4.94 uIU/mL [facility] Specimen Blood Narrative Performed At Medicine Technologist ID - DB [facility] Performing Organization Address City/State/Zipcode Phone Number [facility] [address] [place] [address] CENTER ECHOCARDIOGRAM REPORT - SCAN (01/18/2020 9:22 PM [facility]) Narrative Performed At This result has an attachment that is no t available. Venous doppler legs bilateral (01/18/2020 6:23 PM [facility]) [facility] ECHO HEAR TLAB MKCKESSON CPACS Specimen Impressions Performed At Right Impression [facility] ECHO HEARTLAB MKCKESSON CPACS 1. There is [...] PV LAB - Lower Extremities DVT Study [facility] ECHO HEARTLAB MKCKESSON CPACS Demographics Patient CHAZ Lea Date of Study 01/18/2020 54 Visit [id number] Male of 1965 Referring Alexus Swanson, Room Number 1114 Physician Needle Loom Weaver Maverick Frost T Physician Procedure Type of [...] External Ris In - 01/20/2020 9:35 AM [facility] PV LAB - Lower Extremities DVT Study Demographics Patient Name CHAZ PADILLA Zachary e of Study 01/18/2020 Age 54 Visit Number [id number] Gen noreen Male Accession Number [id number] Zachary e of 1965 Referring Janie Lafleur m Number 1114 Physician Needle Loom Weaver Amie Sanz, Int erpretin Ariana Cabrera, RVT [...] cm Performing Organization Address City/State/Zipcode Phone Number [facility] ECHO HEARTLAB [employer] [facility] 2D Echo W/Doppler(CW/PW/Color) (01/18/2020 12:07 PM [facility]) Ejection Fraction [facility] ECHO HEAR TLAB [employer] [facility] Specimen Narrative Performed At Transthoracic Echocardiography Report (T TE) [facility] ECHO HEARTLAB [employer] [facility] Demographics Patient NameCHAZ PADILLA Date of Study 01/18/2020 Male Visit [id number] Unknown Room Number 1114 Number Date of 1965Referring Physician Efrain Post MD Age 54 year(s)Needle Loom Weaver Abed Uli Zoya Brannon MD Physician Procedure [...] External Ris In - 01/18/2020 2:22 PM [facility] Transthoracic Echocardiography Report (TTE) Demographics Patient Name CHAZ PADILLA Date of S federicody 01/18/2020 Gender Male Visit Number [id number] Race Unknown Room Numb er 1114 Number [...] MKCKESSON CPACS Troponin I (01/18/2020 8:39 AM [facility])Only the most recent of2 resultswithin the time period is included. Troponin I 0.10 (H) 0.00 - 0.03 ng/mL [facility] Specimen Blood Narrative Performed At Troponin I (TnI) levels must be interpreted [facility] in the context of the presenting symptoms and the clinical findings. Elevated TnI levels indicate myocardial damage, but are not specific for ischemic heart disease. Elevated TnI levels are seen in patients with other cardiac conditions (including myocarditis and congestive heart failure), and slight TnI elevations occur in patients with other conditions, including sepsis, renal failure, acidosis, acute neurological disease, and persistent tachyarrhythmia. Medicine Technologist ID - CASS Navarro Performing Organization Address City/[facility]/[place] [address] CENTER XR chest 1 view portable / bedside (01/18/2020 3:27 AM [facility]) Specimen Narrative Performed At FINAL REPORT GE [...] External Ris In - 01/18/2020 6:54 AM [facility] FINAL REPORT RAD, CHEST, 1 VIEW, NON [...] 6:51:28 Performing Organization Address City/State/Zipcode Phone Number [facility] Respiratory Panel [facility] (01/18/2020 1:29 AM [facility]) Human Metapneumovirus Not detected Not detected, [facility] [employer] [facility] Rhinovirus Not detected Not detected, [facility] [employer] [facility] Influenza A Not detected Not detected, [facility] [employer] [facility] INFLUENZA A (NO SUBTYPE) [facility] Influenza A subtype H1 [facility] ER Influenza A Subtype H3 [facility] Influenza A Subtype H1-2009 [facility] ER Influenza B Not detected Not detected, [facility] [employer] [facility] Respiratory Syncytial Virus Not detected Not detected, [facility] [employer] [facility] ER Parainfluenza Virus 1 Not detected Not detected, [facility] [employer] [facility] ER Parainfluenza Virus 2 Not detected Not detected, [facility] [employer] [facility] ER Parainfluenza virus 3 Not detected Not detected, [facility] [employer] [facility] ER Parainfluenza Virus 4 Not detected Not detected, [facility] [employer] [facility] ER Adenovirus Not detected Not detected, [facility] [employer] [facility] Coronavirus 229E Not detected Not detected, [facility] [employer] [facility] Coronavirus HKU1 Not detected Not detected, [facility] [employer] [facility] Coronavirus NL63 Not detected Not detected, [facility] [employer] [facility] Coronavirus OC43 Not detected Not detected, [facility] [employer] [facility] Bordetella Pertussis Not detected Not detected, [facility] [employer] [facility] Chlamydophila Pneumoniae Not detected Not detected, [facility] [employer] [facility] Mycoplasma Pneumoniae Not detected Not detected, [facility] [employer] [facility] Specimen Nasopharyngeal Narrative Performed At Other viruses and bacteria not targeted by [facility] this PCR panel cannot be excluded; therefore clinical correlation and follow up of serology, culture results, and other molecular studies is required. The results are not intended to be used as the sole means for clinical diagnosis or patient management decisions. This sample was tested at the [facility] using the [employer] FilmArray Respiratory Panel. It is FDA cleared and has been verified and approved by the [facility] for clinical use on nasopharyngeal swab specimens. The performance of the FilmArray RP has not been established in individuals who received influenza vaccine.Recent administration of a nasal influenza vaccine may cause false positive results for Influenza A and/or Influenza B. Performing Organization Address City/State/Zipcode Phone Number [facility] [address] [place] [address] CENTER ECG 12 lead (01/18/2020 12:51 AM SH[facility] R[facility]TER) Specimen Narrative Performed At Ventricular Rate 94 BPM GE MUSE Atrial Rate 94 BPM P-R Interval 232 ms QRS Duration 120 ms Q-T Interval 392 ms QTC Calculation(Bazett) 490 ms P [place] 55 degrees R [place] -81 degrees T [place] 87 degrees Sinus rhythm with 1st degree A-V block Left anterior fascicular block Right bundle branch block Possible Anterolateral infarct , age und etermined Prolonged QT Abnormal ECG No previous ECGs available Confirmed by MD DESI, CHELA ([id number]) on 01/18/2020 1:51:43 PM Procedure Note Interface, External Ris In - 01/18/2020 1:51 PM [facility] Ventricular Rate 94 BPM Atrial Rate 94 BPM P-R Interval 232 ms QRS Duration 120 ms Q-T Interval 392 ms QTC Calculation(Bazett) 490 ms P [place] 55 degrees R [place] -81 degrees T [place] 87 degrees Sinus rhythm with 1st degree A-V block Left anterior fascicular block Right bundle branch block Possible Anterolateral infarct , age und etermined Prolonged QT Abnormal ECG No previous ECGs available Confirmed by MD DESI, CHELA ([id number]) on 01/18/2020 1:51:43 PM Performing Organization Address [facility] Phone Number PENG FOWLER PT/aPTT (01/17/2020 11:24 PM SH[facility] R[facility]TER) Protime 14.9 (H) 11.9 - 14.2 seconds [facility] INR 1.2 <=5.9 [facility] PTT 31.5 22.5 - 36.0 seconds [facility] Specimen Blood Narrative Performed At Effective 04/21/2019: PT Reference Range [facility] Change New: 11.9-14.2Previous: 11.7-14.7 RECOMMENDED COUMADIN/WARFARIN INR THERAPY RANGES STANDARD DOSE: 2.0-3.0Includes: PROPHYLAXIS for venous thrombosis, systemic embolization; TREATMENT for venous thrombosis and/or pulmonary embolus. HIGH RISK: Target INR is 2.5-3.5 for patients wiht mechanical heart valves. Performing Organization Address [facility] Phone Number [place] [id number] [place] [address] CENTER CBC with platelet count + automated diff (01/17/2020 11:24 PM SH[facility] ROUTER) WBC 11.4 (H) 3.5 - 10.5 K/L [facility] RBC 4.24 (L) 4.63 - 6.08 M/L [facility] Hemoglobin 13.4 (L) 13.7 - 17.5 GM/DL [facility] Hematocrit 38.9 (L) 40.1 - 51.0 % [facility] MCV 91.7 79.0 - 92.[address] [facility] MCH 31.6 25.7 - 32.[address] [facility] MCHC 34.4 32.3 - 36.5 GM/DL [facility] RDW 12.9 11.6 - 14.4 % [facility] Platelets 248 150 - 450 K/CU MM [facility] MPV 9.9 9.4 - 12.4 fL [facility] nRBC 0 0 - 0 /100 WBC [facility] % Neutros 52 % [facility] % Lymphs 38 % [facility] % Monos 6 % [facility] % Eos 2 % [facility] % Baso 1 % [facility] # Neutros 5.93 (H) 1.78 - 5.38 K/L [facility] # Lymphs 4.35 (H) 1.32 - 3.57 K/L [facility] # Monos 0.67 0.30 - 0.82 K/L [facility] # Eos 0.27 0.04 - 0.54 K/L [facility] # Baso 0.12 (H) 0.01 - 0.08 K/L [facility] Immature Granulocytes-Relative 0 0 - 1 % C HI [facility] Specimen Blood Performing Organization Address City/State/Zipcode Phone Number [facility] [address] [place] [address] CENTER Phosphorus (01/17/2020 11:24 PM SHOP ROUTER) Phosphorus 4.7Comment: Specimen slightly 2.3 - 4.7 mg/dL [facility] Specimen Blood Narrative Performed At Medicine Technologist ID - BS [facility] Performing Organization Address [facility]/Zipcode Phone Number [facility] [address] [place] [address] [place] Hemoglobin A1c (01/17/2020 11:24 PM SHOP ROUTER) Hemoglobin A1C 13.6 (H) 4.3 - 6.1 % [facility] Specimen Blood Performing Organization Address [facility] Phone Number [facility] [address] [place] [address] [place] Lipid panel (01/17/2020 11:24 PM SHOP ROUTER) Triglycerides 82Comment: Specimen slightly mg/dL [facility] Cholesterol 118Comment: Specimen slightly mg/dL [facility] HDL 42 mg/dL [facility] LDL Calculated 60 mg/dL [facility] Specimen Blood Narrative Performed At Triglyceride Reference Range: [facility] Low Risk <150 [id number] High Risk 200-499 Very High Risk>=500 Cholesterol Reference Range: Low Risk <200 [id number] High Risk>240 HDL Cholesterol Reference Range: Low Risk >=60 High Risk <40 LDL Cholesterol Reference Range: Optimal<100 Near [id number] [id number] Very High >=190 Medicine Technologist ID - BS Performing Organization Address [facility] Phone Number [facility] [address] [place] [address] CENTER after 06/23/2019 Insurance Payer Benefit Plan / Group Subscriber ID Type Phone A ddress MEDICARE MEDICARE A B xxxxxxxxxxx Medicare Advance Directives For more information, please contact:[facility] [place], [place] [phone] Code Status Date Activated Date Inactivated Comments Full Code 01/17/2020 11:45 PM 01/21/2020 3:46 PM This code status was determined by: Patient
--- OUTSIDE RECORDS SUMMARY | 2020-06-23 14:38 | XMS REPORT | Continuity of Care Document ---
:1965 Author Organization [facility] t Address [address] [place] [address] Care Team Providers Name Role Phone Kaleb Alexander MD Primary Care Physician Addy MEZA Attending Clinician Meño Zuniga MD Attending Clinician MEÑO ZUNIGA Attending Clinician Unavailable MEÑO ZUNIGA Admitting Clinician Unavailable Payers Payer Name Policy Policy Number Effective Expiration Source Type Date Date MEDICAREMEDICARE A xxxxxxxxxxx [facility] [place] [facility] Problems Condition Condition Condition Status Onset Resolution Last Treating Co mments Source Name Details Category Date Date Treatment Clinician Date Essential Essential Disease Active [facility] hypertensi hypertensi 2-25 Corin kes - on on 00:00: Medical 00 [place] Hyperlipid Hyperlipid Disease Active [facility] emia 2-25 [facility] - 00:[facility] 00 [place] Type 2 Type [address] [facility] diabetes diabetes 2-25 [facility] - mellitus mellitus 00:00: Medica l 00 Center Acute Acute Disease Active [facility] kidney kidney 2-25 [facility] - injury injury 00:00: Medical 00 [place] Acute on Acute on Disease Active [facility] [...] Date Quantity Comments Source Sex Assigned At [facility] Cigarettes smoked 2020-01-21 2020-01-21 [facility] - current (pack per 00:00:00 00:00:00 Medical Center day) - Reported Smoking Status Start Date Stop Date Source Current every day smoker 2020-01-21 00:00:00 [facility] Medications Ordered Filled Start Stop Current Ordering [...] breakfast and dinner. hydrALAZINE 2019-0 Yes 10mg Q.50300383 Take [address] (APRESOLINE 01-21 [id number] tablet (10 [facility] - ) 10 MG [...] MG tablet 00:00: 00:00 Medical 00 :00 [place] spironolact 2019- No [facility] one 01-12 [facility] - (ALDACTONE) 00:00: 00:00 Medic al 25 MG 00 :00 [place] tablet carvedilol 2019- No [facility] (COREG) 01-12 [facility] - 3.125 MG 00:00: 00:00 Medical tablet 00 :00 [place] pantoprazol 2019- No [facility] e 01[facility]12 [facility] - (PROTONIX) 00:00: 00:00 Medica l 40 MG 00 :00 [place] tablet clopidogrel 2019- No 75mg Take [address] [facility] (PLAVIX) 75 12-11 by mouth. Corin kes - mg tablet 00:00: 00:00 Medical 00 :00 [place] zolpidem 2019- No 10mg Take [address] (AMBIEN) 10 02-19 by mouth. Corin kes - mg tablet 00:00: 00:00 Medical 00 :00 [place] gabapentin 2019- No 900mg Q.43396933 Take [address] (NEURONTIN) 12-02 [id number] mg by [facility] - 300 MG 00:00: 00:00 3D mouth 3 Medical capsule 00 :00 (three) Center times daily. albuterol Yes 2{puff} Inhale [address] HFA 9-30 puffs by [facility] - (VENTOLIN 00:00: mouth via Med ical HFA) 90 00 inhaler. [place] mcg/actuati on inhaler aspirin 81 2019- No 81mg Take [address] MG EC 08-05 by mouth. [facility] - tablet 00:00: 00:00 Medical 00 :00 [place] Vital Signs Vital Name Observation Time Observation Value Comments Source Systolic blood 2020-01-21 09:15:00 104 mm[Hg] [facility] pressure [facility] Diastolic blood 2020-01-21 09:15:00 65 mm[Hg] [facility] Heart rate 2020-01-21 09:15:00 84 /min [facility] - [facility] Body temperature 2020-01-21 07:00:00 36.44 [place] [facility] Respiratory rate 2020-01-21 07:00:00 18 /min [facility] Oxygen saturation in 2020-01-21 07:00:00 98 /min [facility] Arterial blood by Medical Ce nter Pulse oximetry Body weight Measured 2020-01-20 05:58:00 114.805 kg [facility] BMI 2020-01-20 05:58:00 33.39 kg/m2 [facility] Body height 2020-01-18 00:00:00 185.4 cm [facility] Procedures Procedure Date / Time Performing Clinician Source Performed REPORT OF PROCEDURE - 2020-01-24 11:11:15 Provider, [facility] RHYTHM STRIP - SCAN 2020-01-24 11:11:13 Provider, Default [facility] POCT-GLUCOSE METER 2020-01-21 08:24:00 [facility] BASIC METABOLIC PANEL (7) 2020-01-21 06:33:00 Alexus Swanson V. [facility] CBC (HEMOGRAM ONLY) 2020-01-21 06:33:00 Alexus Swanson V. [facility] MAGNESIUM 2020-01-21 06:33:00 Alexus Swanson V. [facility] B-TYPE NATRIURETIC FACTOR 2020-01-21 06:33:00 ZunigaSejal [facility] (BNP) [facility] POCT-GLUCOSE METER 2020-01-21 00:05:00 [facility] PERIPHERAL VASCULAR REPORT 2020-01-20 21:24:23 Provider, Default [facility] - [facility] POCT-GLUCOSE METER 2020-01-20 16:35:00 [facility] POCT-GLUCOSE METER 2020-01-20 12:35:00 [facility] POCT-GLUCOSE METER 2020-01-20 07:16:00 [facility] BASIC METABOLIC PANEL (7) 2020-01-20 04:59:00 Alexus Swanson V. [facility] CBC (HEMOGRAM ONLY) 2020-01-20 04:59:00 Alexus Swanson V. [facility] MAGNESIUM 2020-01-20 04:59:00 Alexus Swanson V. [facility] POCT-GLUCOSE METER 2020-01-19 22:29:[address] [facility] POCT-GLUCOSE METER 2020-01-19 16:46:00 [facility] POCT-GLUCOSE METER 2020-01-19 12:58:00 [facility] POCT-GLUCOSE METER 2020-01-19 07:27:00 [facility] B-TYPE NATRIURETIC FACTOR 2020-01-19 03:46:00 Sejal Zuniga [facility] (BNP) [facility] BASIC METABOLIC PANEL (7) 2020-01-19 03:46:00 Alexus Swanson V. [facility] CBC (HEMOGRAM ONLY) 2020-01-19 03:46:00 Alexus Swanson V. [facility] MAGNESIUM 2020-01-19 03:46:00 Alexus Swanson [facility] TSH/FREE T4 IF INDICATED 2020-01-19 03:46:00 Alexus Swanson [facility] POCT-GLUCOSE METER 2020-01-18 22:58:00 [facility] - 2020-01-18 21:22:33 Provider, [facility] VENOUS DOPPLER LEGS 2020-01-18 18:23:00 Alexus Swanson V. [facility] POCT-GLUCOSE METER 2020-01-18 16:59:00 [facility] POCT-[facility]SE METER 2020-01-18 13:19:00 [facility] POCT-GLUCOSE METER 2020-01-18 12:44:00 [facility] ECHO W/ DOPPLER 2020-01-18 12:07:07 Eveline [facility] (CW/PW/COLOR) [facility] POCT-GLUCOSE METER 2020-01-18 09:31:00 [facility] TROPONIN I 2020-01-18 08:39:[facility] 2020-01-18 08:39:00 [facility] XR CHEST 1 VIEW 2020-01-18 03:27:00 [facility] RESPIRATORY PANEL [facility] 2020-01-18 01:29:00 [facility] 12-LEAD 2020-01-18 00:51:16 Unknown, Hl7 Doctor [facility] BASIC METABOLIC PANEL (7) 2020-01-17 23:24:00 Eveline [facility] MAGNESIUM 2020-01-17 23:24:00 [facility] B-TYPE NATRIURETIC FACTOR 2020-01-17 23:24:00 [facility] PHOSPHORUS 2020-01-17 23:24:00 [facility] 2020-01-17 23:24:00 [facility] TROPONIN I 2020-01-17 23:24:00 [facility] HEMOGLOBIN A1C 2020-01-17 23:24:00 [facility] LIPID PANEL 2020-01-17 23:24:00 [facility] CBC W/PLT COUNT & AUTO 2020-01-17 23:24:00 [facility] Encounters Start End Encounter Admission Attending Care Care Encounter Source Date/Time Date/Time Type Type Clinicians Facility Department ID 2020-04-06 2020-04-06 [facility] [id number] 00:00:00 00:00:00 Lacie Lyles [id number] [place] [id number] [id number] [facility] 220 [facility] Results Test Description Test Time Test Comments Results Result Comments Source POC-Glucose meter 2020-01-21 08:36:00 Test Item Value Reference Range Interpretation Comme nts POC-Glucose Meter (test code = 164 mg/dL 70-110 H : TESTED AT [facility] [address] [facility] 1538) [facility], 770 30: Financial Internship/Techni dc ID = [id number] for JONAH MCNEAL Lab Interpretation (test code = Abnormal 50692-1) [facility]CT[facility]SE [id number] 08:36:00 Test Item Value Reference Range Interpretation Comments POC-GLUCOSE METER 164 mg/dL 70-110 H : TESTED A T [facility] [address] (BEAKER) (test code = ANURAG R [facility], 1538) [address]: Financial Internship/Techni dc ID = [id number] for JONAH MCNEAL Basic Metabolic [id number] 07:28:00 Test Item Value Reference Range Interpretation Comments Sodium (test code = 139 meq/L 404-595 2102-2) Potassium (test code 3.8 meq/L 3.5-5.1 = 2823-3) Chloride (test code = 96 meq/L 98-107 L 2075-0) CO2 (test code = 33 meq/L 22-29 H 2028-9) BUN (test code = 23 mg/dL 7-21 H 3094-0) Creatinine (test code 0.92 mg/dL 0.57-1.25 = 2160-0) Glucose (test code = 143 mg/dL 70-105 H 2345-7) Calcium (test code = 10.4 mg/dL 8.4-10.2 H 78832-8) EGFR ([place] = [place] [address]-9) CLINICAL DATA T O CALCULATE ESTIMATED GFR. ROMÁN (test code = ROMÁN) Financial Internship ID - PIAYA L Lab Interpretation Abnormal (test code = 12838-3) [facility] Peninsula[facility]IC METABOLIC [id number] 07:28:00 Test Item Value Reference Range Interpretation [...] 1092) DATA TO CALCULA TE ESTIMATED GFR. Financial Internship ID Salvador REAL [id number] 07:27:00 Test Item Value Reference Range Interpretation Comments Magnesium (test code = 1.3 mg/dL 1.6-2.6 L 81599-2) ROMÁN (test code = ROMÁN) Financial Internship ID - ADDIE L Lab Interpretation (test Abnormal code = 63969-0) [facility] PeninsulaMAGNESIUM2020-02-28 07:27:00 Test Item Value Reference Range Interpretation Comments MAGNESIUM (BEAKER) (test code = 1.3 mg/dL 1.6-2.6 L 627) Financial Internship RAMON REAL LB-type Natriuretic Factor (BNP)2020-01-21 07:17:00 Test Item Value Reference Range Interpretation Comments BNP (test code = 51367-7) 1285 pg/mL 0-100 H ROMÁN (test code = ROMÁN) Financial Internship ID - ADDIE L Lab Interpretation (test Abnormal code = 35160-9) [facility]-TYPE NATRIURETIC FACTOR (BNP)2020-01-21 07:17:00 Test Item Value Reference Range Interpretation Comments B-TYPE NATRIURETIC PEPTIDE 1285 pg/mL 0-100 H (BEAKER) (test code = 700) Financial Internship ID Salvador REAL LCBC (Hemogram only)2020-01-21 06:56:00 [...] 450 K/CU MM MPV (test code = 72167-9) 9.7 fL 9.4-12.4 nRBC (test code = 413) 0 0- 0 /100 WBC Lab Interpretation (test code = Normal 33777-2) [facility] (HEMOGRAM ONLY)2020-01-21 06:56:00 Test Item Value Reference [...] 0-0 (BEAKER) (test code = 413) POCT-GLUCOSE [id number] 00:24:00 Test Item Value Reference Range Interpretation Comments POC-GLUCOSE METER 177 mg/dL 70-110 H : TESTED A T [facility] [address] (LALYAKER) (test code = [facility] Yariel [facility], 153) [address]: Financial Internship/Techni dc ID = [id number] for KAYLEE BUI POCT-GLUCOSE [id number] 16:47:00 Test Item Value Reference Range Interpretation Comments POC-GLUCOSE METER 124 mg/dL 70-110 H : TESTED A T [facility] [address] (ROBBY) (test code = [facility], 1538) [address]: Financial Internship/Techni dc ID = [id number] for KASEY GOLDEN POCT-GLUCOSE [id number] 12:47:00 Test Item Value Reference Range Interpretation Comments POC-GLUCOSE METER 137 mg/dL 70-110 H : TESTED A T [facility] [address] (ROBBY) (test code = [facility], 1538) [address]: Financial Internship/Techni dc ID = [id number] for KASEY GOLDEN Venous doppler legs [id number] 09:35:07Ejection [facility] ECHO HEARTLAB MKCKESSON CPACSRight Impression1. There is [...] of Study 01/18/2020 Age 54 Visit Number [id number] Gender Male Accession Number [id number] Date of 1965 Referring Alexus Swanson, Room Number 1114 Physician Certified Shorthand Reporter Amie Sanz, Interpreting Ariana Cabrera, T Physician [...] in cm/s ; Diameters are measured in [facility] POCT-GLUCOSE [id number] 09:32:00 Test Item Value Reference Range Interpretation Comments POC-GLUCOSE METER 174 mg/dL 70-110 H : TESTED A T [facility] [address] (BEAKER) (test code = [place], 1538) [address]: Financial Internship/Techni dc ID = [id number] for KASEY GOLDEN BASIC METABOLIC [id number] 06:36:00 Test Item Value Reference Range Interpretation [...] 1092) DATA TO CALCULA TE ESTIMATED GFR. Financial Internship ID - ADDIE [id number] 06:30:00 Test Item Value Reference Range Interpretation Comments MAGNESIUM (BEAKER) (test code = 1.1 mg/dL 1.6-2.6 L 627) Financial Internship ID - ADDIE LCBC (HEMOGRAM ONLY)2020-01-20 06:05:00 [...] 0-0 (BEAKER) (test code = 413) POCT-GLUCOSE [id number] 22:41:00 Test Item Value Reference Range Interpretation Comments POC-GLUCOSE METER 219 mg/dL 70-110 H : TESTED A T [facility] [address] (BEAKER) (test code = [facility], 1538) [address]: Financial Internship/Techni dc ID = [id number] for MARII FUCHS POCT-GLUCOSE [id number] 16:58:00 Test Item Value Reference Range Interpretation Comments POC-GLUCOSE METER 158 mg/dL 70-110 H : TESTED A T [facility] [address] (BEAKER) (test code = [facility], 1538) [address]: Financial Internship/Techni dc ID = [id number] for COURTNEY FORD POCT-GLUCOSE [id number] 13:12:00 Test Item Value Reference Range Interpretation Comments POC-GLUCOSE METER 195 mg/dL 70-110 H : TESTED A T [facility] [address] (BEAKER) (test code = [facility], 1538) [address]: Financial Internship/Techni dc ID = [id number] for KASEY GOLDEN POCT-GLUCOSE [id number] 07:39:00 Test Item Value Reference Range Interpretation Comments POC-GLUCOSE METER 237 mg/dL 70-110 H : TESTED A T [facility] [address] (BEAKER) (test code = [facility], 1538) [address]: Financial Internship/Techni dc ID = [id number] for KASEY GOLDEN BASIC METABOLIC [id number] 06:16:00 Test Item Value Reference Range Interpretation [...] 1092) DATA TO CALCULA TE ESTIMATED GFR. Financial Internship ID - NOLBERTO [id number] 06:14:00 Test Item Value Reference Range Interpretation Comments MAGNESIUM (BEAKER) (test code = 1.2 mg/dL 1.6-2.6 L 627) Financial Internship ID - NOLBERTO MTSH/Free T4 If [id number] 06:13:00 Test Item Value Reference Range Interpretation Comments TSH (test code = 11017-9) 0.71 0.35- 4.94 uIU/mL ROMÁN (test code = ROMÁN) Financial Internship ID - DB Lab Interpretation (test Normal code = 31335-4) [facility]SH/FREE T4 IF [id number] 06:13:00 Test Item Value Reference Range Interpretation Comments THYROID STIMULATING HORMONE 0.71 uIU/mL 0.35-4.94 (BEAKER) (test code = 772) Financial Internship ID - ELENAB-TYPE NATRIURETIC FACTOR (BNP)2020-01-19 05:43:00 Test Item Value Reference Range Interpretation Comments B-TYPE NATRIURETIC PEPTIDE 2649 pg/mL 0-100 H (BEAKER) (test code = 700) Financial Internship ID - NOLBERTO MCBC (HEMOGRAM ONLY)2020-01-19 05:41:00 [...] 0-0 (BEAKER) (test code = 413) POCT-GLUCOSE [id number] 23:12:00 Test Item Value Reference Range Interpretation Comments POC-GLUCOSE METER 265 mg/dL 70-110 H : TESTED A T [facility] [address] (BEAKER) (test code = Related Content Database (RCDb) [facility], 1538) [address]: Financial Internship/Techni dc ID = [id number] for MARII FUCHS POCT-GLUCOSE [id number] 17:14:00 Test Item Value Reference Range Interpretation Comments POC-GLUCOSE METER 250 mg/dL 70-110 H : TESTED A T [facility] [address] (BEAKER) (test code = Related Content Database (RCDb) [facility], 1538) [address]: Financial Internship/Techni dc ID = [id number] for ZABRINA WARD 2D Echo W/Doppler(CW/PW/Color)2020-01-18 14:22:21Ejection FractionSLEH ECHO HEARTLAB MKCKESSON CPACSInterface, External Ris In - 01/18/2020 2:22 PM C STTransthoracic Echocardiography Report (TTE) Demographics Patient Name CHAZ PADILLA Date of Study 01/18/2020 Gender Male Visit Number [id number] Race Unknown Room Number 1114 Number Date of 1965 Referring Physician Efrain Post MD Age 54 year(s) Certified Shorthand Reporter Abed Uli Interpreting Stefanie Brannon MD Physician [...] CO: 2.21 l/min LVOT CI: 0.91 l/min/m^2[facility] 12 [id number] 13:51:46Interface, External Ris In - 01/18/2020 1:51 PM CSTVentricular Rate 94 BPMAtrial Rate 94 BPMP-R Interval 232 msQRS Duration 120 msQ-T Interval 392 msQTC Calculation(Bazett) 490 msP [place] 55 degreesR [place] -81 degreesT [place] 87 degreesSinus rhythm with 1st degree A-V blockLeft anterior fascicular blockRight bundle branch blockPossible Anterolateral infarct , age undeterminedProlonged QTAbnormal ECGNo previous ECGs availableConfirmed by MD DESI, CHELA ([id number]) on 01/18/2020 1:51:43 [facility] 2020-01-18 13:31:00 Test Item Value Reference Range Interpretation Comments POC-GLUCOSE METER 306 mg/dL 70-110 H : Notified RN/: (ROBBY) (test code = TESTED AT [place] 8877920 1538) NEIL [facility], [address]: Financial Internship/Techni dc ID = [id number] for ZABRINA WARD [id number] 13:06:00 Test Item Value Reference Range Interpretation Comments MAGNESIUM (ROBBY) 1.6 mg/dL 1.6-2.6 Specimen slightly (test code = 627) hemolyzed Financial Internship ID - CASS MPOCT-GLUCOSE [id number] 12:56:00 Test Item Value Reference Range Interpretation Comments POC-GLUCOSE METER 267 mg/dL 70-110 H : TESTED A T [facility] 67 (ROBBY) (test code = ANURAG Saldivar [facility], 1538) [address]: Financial Internship/Techni dc ID = [id number] for CHANDA LEÓN Respiratory Panel [id number] 10:14:00 Test Item Value Reference Range Interpretation Comments Human Metapneumovirus Not detected Not detected, (test code = 05545-8) Equivocal Rhinovirus (test code = Not detected Not detected, 54254-4) Equivocal INFLUENZA A (NO Not detected Not detected, SUBTYPE) (test code = Equivocal 96693-5) Influenza A subtype H1 (test code = 93958-8) Influenza A Subtype H3 (test code = 67572-4) Influenza A Subtype H1-2009 (test code = 71510-4) Influenza B (test code Not detected Not detected, = 58135-7) Equivocal Respiratory Syncytial Not detected Not detected, Virus (test code = Equivocal 69955-7) Parainfluenza Virus 1 Not detected Not detected, (test code = 37340-5) Equivocal Parainfluenza Virus 2 Not detected Not detected, (test code = 06376-2) Equivocal Parainfluenza virus 3 Not detected Not detected, (test code = 68872-6) Equivocal Parainfluenza Virus 4 Not detected Not detected, (test code = 18502-2) Equivocal Adenovirus (test code = Not detected Not detected, 45044-3) Equivocal Coronavirus 229E (test Not detected Not detected, code = 22740-4) Equivocal Coronavirus HKU1 (test Not detected Not detected, code = 84780-3) Equivocal Coronavirus NL63 (test Not detected Not detected, code = 96281-0) Equivocal Coronavirus OC43 (test Not detected Not detected, code = 82944-4) Equivocal Bordetella Pertussis Not detected Not detected, (test code = 83073-0) Equivocal Chlamydophila Not detected Not detected, Pneumoniae (test code = Equivocal 48992-1) Mycoplasma Pneumoniae Not detected Not detected, (test code = 39033-9) Equivocal ROMÁN (test code = ROMÁN) Other viruses and bacteria not targeted by this PCR panel cannot be excluded; therefore clinical correlation and follow up of serology, culture results, and other molecular studies is required. The results are not intended to be used as the sole means for clinical diagnosis or patient management decisions. This sample was tested at the [facility] using the IRIS-RFIDArray Respiratory Panel. It is FDA cleared and has been verified and approved by the [facility] for clinical use on nasopharyngeal swab specimens. The performance of the FilmArray RP has not been established in individuals who received influenza vaccine. Recent administration of a nasal influenza vaccine may cause false positive results for Influenza A and/orInfluenza B. [facility] PANEL [id number] 10:14:00 Test Item Value Reference Range Interpretation [...] sample was tested at the [facility] using the IRIS-RFIDArray Respiratory Panel. It is FDA cleared and has been verified and approved by the [facility] for clinical use on nasopharyngeal swab specimens.The performance of the FilmArrayRP has not been established in individuals who received influenza vaccine. Recent administration ofa nasal influenza vaccine may cause false positive results for Influenza A and/orInfluenza B.POCT-GLUCOSE [id number] 09:44:00 Test Item Value Reference Range Interpretation Comments POC-GLUCOSE METER 281 mg/dL 70-110 H : TESTED A T [facility] [address] (BEAKER) (test code = [place], 1538) [address]: Financial Internship/Techni dc ID = [id number] for CHANDA LEÓN Troponin [id number] 09:35:00 Test Item Value Reference Range Interpretation Comments Troponin I (test code = 0.10 ng/mL 0-0.03 H 83957-2) ROMÁN (test code = ROMÁN) Troponin I [...] M Lab Interpretation (test Abnormal code = 90327-1) [facility] PeninsulaTROPONIN [id number] 09:35:00 Test Item Value Reference Range Interpretation [...] failure, acidosis, acute neurological disease, and persistent tachyarrhythmia.Financial Internship ID - CASS MHemoglobin A1c 2020-01-18 08:46:00 Test Item Value Reference Range Interpretation Comments Hemoglobin A1C (test code = 4548-4) 13.6 % 4.3-6.1 H Lab Interpretation (test code = Abnormal 98857-7) [facility] PeninsulaHEMOGLOBIN [id number] 08:46:00 Test Item Value Reference Range Interpretation Comments HEMOGLOBIN A1C (BEAKER) (test code = 13.6 % 4.3-6.1 H 368) RAD, CHEST, 1 VIEW, NON [id number] 06:51:00Reason for exam:->CHFShould this be performed at [...] 06:51:28 XR chest 1 view portable / [id number] 06:51:00 Interface, External Ris In - 01/18/2020 [...] Signed: Christa Coley Verified Date/Time: 01/18/2020 06:51:28 [facility] TROPONIN [id number] 00:24:00 Test Item Value Reference Range Interpretation Comments TROPONIN I (BEAKER) (test code = 0.20 ng/mL 0.00-0.03 [facility]) Troponin I (TnI) levels must be interpreted [...] failure, acidosis, acute neurological disease, and persistent tachyarrhythmia.Financial Internship ID - BSB-TYPE NATRIURETIC FACTOR (BNP)2020-01-18 00:15:00 Test Item Value Reference Range Interpretation Comments B-TYPE NATRIURETIC PEPTIDE 2998 pg/mL 0-100 H (BEAKER) (test code = 700) Financial Internship ID - BSBASIC METABOLIC [id number] 00:14:00 Test Item Value Reference Range Interpretation [...] 1092) DATA TO CALCULA TE ESTIMATED GFR. Financial Internship ID - BSLipid [id number] 00:07:00 Test Item Value Reference Range Interpretation Comments Triglycerides (test 82 mg/dL Specimen code = 2571-8) slightly hemolyzed Cholesterol (test 118 mg/dL Specimen code = 2093-3) slightly hemolyzed HDL (test code = 42 mg/dL 5-9) LDL Calculated (test 60 mg/dL code = 60618-1) ROMÁN (test code = Triglyceride ROMÁN) Reference Range: Low Risk <150 Borderline 150-199 High Risk 200-499 Very High Risk >=500 Cholesterol Reference Range: Low Risk <200 Borderline 200-239 High Risk >240 HDL Cholesterol Reference Range: Low Risk >=60 High Risk <40 LDL Cholesterol Reference Range: Optimal <100 Near Optimal 100-129 Borderline 130-159 High 160-189 Very High >=190 Financial Internship ID - BS [facility] PeninsulaPhosphorus2020-02-25 00:07:00 Test Item Value Reference Range Interpretation Comments Phosphorus (test code 4.7 mg/dL 2.3-4.7 Specim en = 2777-1) slightly hemolyzed ROMÁN (test code = ROMÁN) Financial Internship ID - BS Lab Interpretation Normal (test code = 77705-3) [facility] PeninsulaMAGNESIUM2020-02-25 00:07:00 Test Item Value Reference Range Interpretation Comments MAGNESIUM (BEAKER) 1.1 mg/dL 1.6-2.6 L Specimen slightly (test code = 627) hemolyzed Financial Internship ID - [id number] 00:07:00 Test Item Value Reference Range Interpretation Comments PHOSPHORUS (BEAKER) 4.7 mg/dL 2.3-4.7 Specimen slightly (test code = 604) hemolyzed [employer] ID - BSLIPID [id number] 00:07:00 Test Item Value Reference Range Interpretation [...] Borderline 130-159 High 160-189 Very High >=190 [employer] ID - [id number] 23:50:00 Test Item Value Reference Range Interpretation Comments Protime (test code = 14.9 11.9- 14.2 H 5902-2) seconds INR (test code = 1.2 <=5.9 6301-6) PTT (test code = 31.5 22.5- 36.0 55706-2) seconds ROMÁN (test code = ROMÁN) Effective 04/21/2019: PT Reference Range ChangeNew: 11.9-14.2 Previous: 11.7-14.7 RECOMMENDED COUMADIN/WARFARIN INR THERAPY RANGESSTANDARD DOSE: 2.0-3.0 Includes: PROPHYLAXIS for venous thrombosis, systemic embolization; TREATMENT for venous thrombosis and/or pulmonary embolus.HIGH RISK: Target INR is 2.5-3.5 for patients wiht mechanical heart valves. Lab Interpretation Abnormal (test code = 02878-8) [id number] 23:50:00 Test Item Value Reference Range Interpretation [...] heart valves.CBC with platelet count + automated [id number] 23:42:00 Test Item Value Reference Range Interpretation [...] 450 K/CU MM MPV (test code = 52434-9) 9.9 fL 9.4-12.4 nRBC (test code = [...] 2801) Lab Interpretation (test code = Abnormal 13594-9) [facility] W/PLT COUNT & AUTO [id number] 23:42:00 Test Item Value Reference Range Interpretation [...] % 0-1 PERCENT (BEAKER) (test code = 4662)
[2020-06-23] MEDS ORDERED: ACETAMINOPHEN 325 MG TABLET ONE (15:09)
[2020-06-23] MEDS ORDERED: NA CHLORIDE 0.9% 250 ML ONE (15:10)
[2020-06-23] MEDS ORDERED: FAMOTIDINE 20 MG/2 ML VIAL IV ONE (15:10)
[2020-06-23] MEDS ORDERED: NA CHLORIDE 0.9% 1,000 ML ONE (15:10)
[2020-06-23] MEDS ORDERED: VANCOMYCIN 1 GM/VIAL ONE (15:10)
[2020-06-23] MEDS ORDERED: NA CHLORIDE 0.9% 500 ML ONE (15:10)
[2020-06-23 15:47] LABS: Absolute Lymphocytes (CBC) 0.7 K/uL (0.7-4.9); Basophils % 0.6 % (0-1.3); Hematocrit 37.8 % (39.6-49.0); Lymphocytes % 7.6 % (15.3-44.8); MPV 9.8 fL (7.6-11.3); RBC Red Blood Cell Count 4.05 M/uL (4.33-5.43)
[2020-06-23 15:48] LABS: Protime INR 1.85
--- NOTE | 2020-06-23 16:07 | ER ---
Nurse's Notes [facility] Name: Nikos Corona Age: 54 yrs Sex: Male : 1965 Arrival Date: 06/23/2020 Time: 14:29 Bed 2 Private MD: Diagnosis: Sepsis, unspecified organism;Type 2 diabetes mellitus;Edema, unspecified;Pneumonia due to other specified bacteria;Dyspnea;Hypoxemia;Hypo-osmolality and hyponatremia;Hypomagnesemia;Cardiomegaly Presentation: 06/23 14:42 Chief complaint: Patient states: CP, SOB, not feeling well, low grade temp for 2-3 ll1 days. Cousin brought him in, his home health nurse wanted him to be checked. Coronavirus screen: Client denies travel out of the [place] in the last 14 days. difficulty breathing, fatigue, fever, shortness of breath, Client presents with at least one sign or symptom that may indicate coronavirus-19. Standard/surgical mask placed on the client. Ebola Screen: Patient denies travel to an Ebola-affected area in the 21 days before illness onset. Initial Sepsis Screen: Does the patient meet any 2 criteria? RR > 20 per min. HR > 90 bpm. Does the patient have a suspected source of infection? No. Patient's initial sepsis screen is negative. Risk Assessment: Do you want to hurt yourself or someone else? Patient reports no desire to harm self or others. Onset of symptoms was June 21, 2020. 14:42 Method Of Arrival: Wheelchair ll1 14:42 Acuity: YESI 2 ll1 Triage Assessment: 14:45 General: Appears in no apparent distress. Behavior is anxious, uncooperative. vc Respiratory: Reports shortness of breath at rest cough that is productive, Onset: The symptoms/episode began/occurred just prior to arrival, the patient has moderate shortness of breath. Historical: - Allergies: 14:36 Rifampin; ll1 14:36 Sulfa (Sulfonamide Antibiotics); ll1 - PMHx: 14:36 Hyperlipidemia; ADD/ADHD; Diabetes - NIDDM; neuropathy; DVT; CHF; Myocardial ll1 infarction; Anxiety; CAD; Hypertension; PVD; PTSD; osteomyelitis; - PSHx: 14:36 Cholecystectomy; feet surgery; femur surgery; ll1 - Immunization history:: Adult Immunizations up to date. - Social history:: Smoking status: Patient reports the use of cigarette tobacco products, smokes one pack cigarettes per day. Patient/guardian denies using alcohol, street drugs. Screenin:00 Abuse screen: Denies threats or abuse. Nutritional screening: No deficits noted. vc Tuberculosis screening: No symptoms or risk factors identified. Fall Risk None identified. Assessment: 14:37 Pain: Denies pain. Cardiovascular: Rhythm is sinus tachycardia. Respiratory: Airway is vc patent Respiratory effort is even, labored, using tripod position, 15:00 General: Appears distressed, uncomfortable, obese, unkempt, Behavior is agitated, vc anxious. 15:00 Neuro: Level of Consciousness is awake, alert, obeys commands, Oriented to person, vc place, time, situation, Appropriate for age. GI: No signs and/or symptoms were reported involving the gastrointestinal system. Abdomen is round distended, noted to have ascites. : Urine is concentrated. EENT: No signs and/or symptoms were reported regarding the EENT system. Derm: Skin is diaphoretic. 15:31 Reassessment: Patient removed nasal canula, oxygen saturation dropped to 86%, asked vc patient to stop removing nasal canula. 15:36 Reassessment: Patient removed nasal canula, oxygen saturation dropped to 90%, asked vc patient to keep nasal canula on. 15:48 Reassessment: Patient removed nasal camula, Oxygen dropped to 89%, told patient that vc every time he takes off his oxygen his oxygen drops into the 80's, patient verbalized understanding. 17:39 Reassessment: Patient appears in no apparent distress at this time. Patient and/or vc family updated on plan of care and expected duration. Pain level reassessed. 18:21 Reassessment: Patient appears in no apparent distress at this time. Patient and/or vc family updated on plan of care and expected duration. Pain level reassessed. Patient states feeling better. Vital Signs: 14:42 BP 99 / 72; Pulse 104; Resp 24; Temp 99.4; Pulse Ox 90% on R/A; ll1 15:15 BP 103 / 65; Pulse 106; Resp 20; Pulse Ox 89% ; vc 16:15 BP 113 / 78; Pulse 96; Resp 19; Pulse Ox 95% on 2 lpm NC; vc 16:45 BP 115 / 88; Pulse 90; Resp 17; Pulse Ox 96% on 2 lpm NC; vc 17:15 BP 101 / 70; Pulse 91; Resp 20; Temp 97.6; Pulse Ox 96% on R/A; vc Scarbro Coma Score: 17:02 Eye Response: spontaneous(4). Verbal Response: oriented(5). Motor Response: obeys vc commands(6). Total: 15. ED Course: 14:29 Patient arrived in ED. mr 14:37 Chris Neumann MD is Attending Physician. sebastien 14:37 Arm band placed on Patient placed in an exam room, on a stretcher. ll1 14:44 Triage completed. ll1 14:56 Elyse Smith, BLANCA is Primary Nurse. vc 15:00 Patient has correct armband on for positive identification. special population paraprofessional on. Pulse vc ox on. NIBP on. 15:05 Missed attempt(s): 20 gauge in left forearm. Bleeding controlled, band aid applied, dh3 catheter tip intact. 15:10 Initial lab(s) drawn, by ak, sent to lab. Inserted saline lock: 20 gauge in right dh3 forearm, using aseptic technique. Blood collected. 15:10 T\T\S collected, blood band applied to patient. dh3 15:33 Missed attempt(s): 22 gauge in left antecubital area. Bleeding controlled, band aid vc applied, catheter tip intact. 15:35 Inserted saline lock: 22 gauge in left hand, using aseptic technique. Blood collected. dh3 15:58 XRAY Chest (1 view) In Process Unspecified. EDMS 16:05 Eleazar London MD is Hospitalizing Provider. sebastien 18:31 No provider procedures requiring assistance completed. Patient admitted, IV remains in vc place. Administered Medications: 15:30 Drug: NS 0.9% 500 ml Route: IV; Rate: bolus; Site: left hand; vc 15:30 Drug: NS 0.9% 1000 ml Route: IV; Rate: 125 ml/hr; Site: right forearm; vc 15:30 Drug: Tylenol 650 mg Route: PO; vc 17:00 Follow up: Response: No adverse reaction; Temperature is decreased vc 15:30 Drug: vancoMYCIN 1 grams Route: IVPB; Infused Over: 2 hrs; Site: right forearm; vc 15:30 Drug: Cefepime 1 grams Route: IVPB; Rate: 200 ml/hr; Infused Over: 30 mins; Site: left vc hand; 15:30 Drug: Pepcid 20 mg Route: IVP; Site: right forearm; vc 16:00 Follow up: Response: No adverse reaction vc 17:11 Drug: Magnesium Sulfate 2 grams Route: IVPB; Infused Over: 2 hrs; Site: right forearm; vc 18:30 Follow up: IV Status: Completed infusion; IV Intake: 100ml vc Intake: 18:30 IV: 100ml; Total: 100ml. vc Outcome: 16:07 Decision to Hospitalize by Provider. sebastien 18:31 Admitted to Tele accompanied by tech, via stretcher, with oxygen, with chart, Report vc called to BLANCA Evans 18:31 Condition: stable 18:31 Instructed on the need for admit, Demonstrated understanding of instructions. 19:02 Patient left the ED. vc Signatures: Dispatcher [employer] Chris Marvin MD MD cha Rivera, Val mr FrancoAna 3 Elyse Smith RN RN vc Lewis, Lynsay, RN RN ll1 Corrections: (The following items were deleted from the chart) 18:13 15:59 NS 0.9% 500 ml IV at bolus in right forearm vc vc 18:14 15:00 NS 0.9% 500 ml IV at bolus in right forearm vc vc
--- NOTE | 2020-06-23 16:07 | EDPHYS ---
Physician Documentation [facility] Name: Nikos Corona Age: 54 yrs Sex: Male : 1965 Arrival Date: 06/23/2020 Time: 14:29 Bed 2 Private MD: ED Physician Chris Neumann HPI: 06/23 14:54 This 54 yrs old Male presents to ER via Wheelchair with complaints of sebastien Breathing Difficulty. 14:54 The patient has shortness of breath at rest, with light activity. Onset: The sebastien symptoms/episode began/occurred 3 day(s) ago. Duration: The symptoms are continuous, and are steadily getting worse. The patient's shortness of breath is aggravated by nothing, is alleviated by nothing. Associated signs and symptoms: The patient has no apparent associated signs or symptoms. Severity of symptoms: At their worst the symptoms were moderate in the emergency department the symptoms are unchanged. It is unknown whether or not the patient has had similar symptoms in the past. Historical: - Allergies: 14:36 Rifampin; ll1 14:36 Sulfa (Sulfonamide Antibiotics); ll1 - PMHx: 14:36 Hyperlipidemia; ADD/ADHD; Diabetes - NIDDM; neuropathy; DVT; CHF; Myocardial ll1 infarction; Anxiety; CAD; Hypertension; PVD; PTSD; osteomyelitis; - PSHx: 14:36 Cholecystectomy; feet surgery; femur surgery; ll1 - Immunization history:: Adult Immunizations up to date. - Social history:: Smoking status: Patient reports the use of cigarette tobacco products, smokes one pack cigarettes per day. Patient/guardian denies using alcohol, street drugs. ROS: 14:55 Eyes: Negative for injury, pain, redness, and discharge, ENT: Negative for injury, sebastien pain, and discharge, Neck: Negative for injury, pain, and swelling, Cardiovascular: Negative for chest pain, palpitations, and edema, Abdomen/GI: Negative for abdominal pain, nausea, vomiting, diarrhea, and constipation, Back: Negative for injury and pain, : Negative for injury, bleeding, discharge, and swelling, Skin: Negative for injury, rash, and discoloration, Neuro: Negative for headache, weakness, numbness, tingling, and seizure, Psych: Negative for depression, anxiety, suicide ideation, homicidal ideation, and hallucinations, Allergy/Immunology: Negative for hives, rash, and allergies, Endocrine: Negative for neck swelling, polydipsia, polyuria, polyphagia, and marked weight changes, Hematologic/Lymphatic: Negative for swollen nodes, abnormal bleeding, and unusual bruising. 14:55 Constitutional: Positive for body aches, chills, fatigue, fever, malaise, poor PO intake. 14:55 Respiratory: Positive for cough, dyspnea on exertion, shortness of breath, at rest. 14:55 MS/extremity: Positive for decreased range of motion, swelling, tenderness, of the right leg and left leg. Exam: 14:58 Head/Face: Normocephalic, atraumatic. Eyes: Pupils equal round and reactive to light, sebastien extra-ocular motions intact. Lids and lashes normal. Conjunctiva and sclera are non-icteric and not injected. Cornea within normal limits. Periorbital areas with no swelling, redness, or edema. ENT: Nares patent. No nasal discharge, no septal abnormalities noted. Tympanic membranes are normal and external auditory canals are clear. Oropharynx with no redness, swelling, or masses, exudates, or evidence of obstruction, uvula midline. Mucous membranes moist. Chest/axilla: Normal chest wall appearance and motion. Nontender with no deformity. No lesions are appreciated. Abdomen/GI: Soft, non-tender, with normal bowel sounds. No distension or tympany. No guarding or rebound. No evidence of tenderness throughout. Back: No spinal tenderness. No costovertebral tenderness. Full range of motion. Male : Normal genitalia with no discharge or lesions. Neuro: Awake and alert, GCS 15, oriented to person, place, time, and situation. Cranial nerves II-XII grossly intact. Motor strength 5/5 in all extremities. Sensory grossly intact. Cerebellar exam normal. Normal gait. Psych: Awake, alert, with orientation to person, place and time. Behavior, mood, and affect are within normal limits. 14:58 Constitutional: The patient appears febrile, in obvious distress, mildly distressed. 14:58 Cardiovascular: Rate: tachycardic, Rhythm: regular, Pulses: Pulses are 4+ in bilateral radial, brachial, femoral, popliteal, posterior tibial and and dorsalis pedis arteries.. Heart sounds: normal, Edema: 4+ edema to level of left midcalf and right midcalf, JVD: is noted bilaterally, to 2 cm. 14:58 Respiratory: mild respiratory distress is noted, Respirations: labored breathing, that is mild, Breath sounds: decreased breath sounds, that are mild, Respiratory rate: 24 14:58 Musculoskeletal/extremity: Extremities: noted in the right leg and left leg: decreased ROM, swelling. 14:58 Neuro: Orientation: is normal, appropriate for stated age, no acute changes, Mentation: slow to respond, Memory: appropriate for stated age, no acute changes, Cranial nerves: grossly normal, is grossly normal based on the patient's age, no acute changes, Cerebellar function: no acute changes, Motor: moves all fours, Gait: shuffling, Deep tendon reflexes are 2+ (normal) in the bilateral brachioradialis, bicep, tricep and patellar and Achilles tendons. 16:01 Abdomen/GI: Inspection: distension, Bowel sounds: normal, Palpation: abdomen is soft sebastien and non-tender, Rectal exam: is unremarkable, Prostate: normal, rectal tone normal, Stool: normal, guaiac negative, hemorrhoid(s), are not appreciated, mass, is not appreciated, swelling, is not appreciated, tenderness, is not appreciated, fecal impaction, is not appreciated, the exam is chaperoned by an mining engineering technologist, Liver: no appreciated palpable abnormalities, Hernia: not appreciated. 16:02 ECG was reviewed by the Attending Physician. [facility] Vital Signs: 14:42 BP 99 / 72; Pulse 104; Resp 24; Temp 99.4; Pulse Ox 90% on R/A; ll1 15:15 BP 103 / 65; Pulse 106; Resp 20; Pulse Ox 89% ; vc 16:15 BP 113 / 78; Pulse 96; Resp 19; Pulse Ox 95% on 2 lpm NC; vc 16:45 BP 115 / 88; Pulse 90; Resp 17; Pulse Ox 96% on 2 lpm NC; vc 17:15 BP 101 / 70; Pulse 91; Resp 20; Temp 97.6; Pulse Ox 96% on R/A; vc Michelle Coma Score: 17:02 Eye Response: spontaneous(4). Verbal Response: oriented(5). Motor Response: obeys vc commands(6). Total: 15. MDM: 14:37 Patient medically screened. [facility] 15:00 Differential diagnosis: Anemia Bronchitis CHF exacerbation, pneumonia, pulmonary edema, sebastien Pulmonary Embolism reactive airway disease, Sepsis Unstable Angina. Antibiotic administration: cefepime and vancomycin. The patient's Wells Deep Vein Thrombosis Score was calculated as follows: Heart Rate >100 BPM (1.5 Pts) Imm/Surg in last 4 wks (1.5 Pts) Total Score: 3-6 Pts - Mod Risk. The patient's pulmonary embolism risk score was calculated as follows: the patients heart rate is greater than 100 beats per minute (1.5 Pts) patient has experienced immobilization or surgery in the last four weeks (1.5 Pts) Total Score: 3-6 points. This patient was found to be at moderate risk for a pulmonary embolism by using the Well's assessment criteria. Immunization status: Influenza vaccine: Not up to date. Data reviewed: vital signs, nurses notes, lab test result(s), EKG, radiologic studies, plain films. Data interpreted: sandwich machine operator: rate is 104 beats/min, rhythm is normal sinus rhythm, Pulse oximetry: on room air is 90 %. Test interpretation: by ED physician or midlevel provider: ECG, plain radiologic studies. Counseling: I had a detailed discussion with the patient and/or guardian regarding: the historical points, exam findings, and any diagnostic results supporting the discharge/admit diagnosis, lab results, radiology results, the need for further work-up and treatment in the hospital. 06/23 14:54 Order name: Basic Metabolic Panel; Complete Time: 16:27 [facility] 06/23 14:54 Order name: CBC with Diff; Complete Time: 16:27 [facility] 06/23 14:54 Order name: LFT's; Complete Time: 16:27 [facility] 06/23 14:54 Order name: Magnesium; Complete Time: 16:27 [facility] 06/23 14:54 Order name: NT PRO-BNP; Complete Time: 16:27 [facility] 06/23 14:54 Order name: PT-INR; Complete Time: 16:01 [facility] 06/23 14:54 Order name: Troponin (emerg Dept Use Only); Complete Time: 16:27 [facility] 06/23 14:54 Order name: Lactate; Complete Time: 16:27 [facility] 06/23 14:54 Order name: Procalcitonin; Complete Time: 17:27 [facility] 06/23 14:54 Order name: Type And Screen 06/23 14:54 Order name: Urine Culture 06/23 14:55 Order name: AMMONIA; Complete Time: 16:01 [facility] 06/23 14:57 Order name: COVID-19 [facility] 06/23 14:57 Order name: Flu; Complete Time: 17:27 [facility] 06/23 14:54 Order name: XRAY Chest (1 view); Complete Time: 17:27 [facility] 06/23 16:22 Order name: Urinalysis [facility] 06/23 16:22 Order name: CBC with Automated Diff [facility] 06/23 16:22 Order name: CBC with Automated Diff [facility] 06/23 16:22 Order name: Comprehensive Metabolic Panel [facility] 06/23 16:22 Order name: Comprehensive Metabolic Panel [facility] 06/23 16:22 Order name: Magnesium [facility] 06/23 16:22 Order name: Magnesium [facility] 06/23 16:22 Order name: Phosphorus [facility] 06/23 16:22 Order name: Phosphorus [facility] 06/23 16:25 Order name: CBC Smear Scan; Complete Time: 16:27 [facility] 06/23 16:30 Order name: Urine Sodium Random [facility] 06/23 16:30 Order name: Urine Osmolality [facility] 06/23 16:30 Order name: Osmolality, Serum [facility] 06/23 17:43 Order name: Urine Dipstick--Ancillary (enter results) 06/23 17:47 Order name: Urine Dipstick-Ancillary [facility] 06/23 14:54 Order name: EKG; Complete Time: 14:54 [facility] 06/23 14:54 Order name: Cardiac monitoring; Complete Time: 15:59 [facility] 06/23 14:54 Order name: EKG - Nurse/Tech; Complete Time: 15:59 [facility] 06/23 14:54 Order name: IV Saline Lock; Complete Time: 15:59 [facility] 06/23 14:54 Order name: Labs collected and sent; Complete Time: 15:59 [facility] 06/23 14:54 Order name: O2 Per Protocol; Complete Time: 16:00 [facility] 06/23 14:54 Order name: O2 Sat Monitoring; Complete Time: 16:00 [facility] 06/23 14:54 Order name: Urine Dipstick-Ancillary (obtain specimen); Complete Time: 18:13 [facility] 06/23 16:22 Order name: Heart Healthy [facility] 06/23 16:30 Order name: Lama: viscus lido; Complete Time: 17:36 [facility] EC:02 Rate is 102 beats/min. Rhythm is regular. QRS [place] is Normal. ND interval is normal. sebastien QRS interval is normal. QT interval is normal. No Q waves. T waves are Normal. No ST changes noted. Clinical impression: Sinus tachycardia and No evidence of ischemia. Interpreted by me. Reviewed by me. Administered Medications: 15:30 Drug: NS 0.9% 500 ml Route: IV; Rate: bolus; Site: left hand; vc 15:30 Drug: NS 0.9% 1000 ml Route: IV; Rate: 125 ml/hr; Site: right forearm; vc 15:30 Drug: Tylenol 650 mg Route: PO; vc 17:00 Follow up: Response: No adverse reaction; Temperature is decreased vc 15:30 Drug: vancoMYCIN 1 grams Route: IVPB; Infused Over: 2 hrs; Site: right forearm; vc 15:30 Drug: Cefepime 1 grams Route: IVPB; Rate: 200 ml/hr; Infused Over: 30 mins; Site: left vc hand; 15:30 Drug: Pepcid 20 mg Route: IVP; Site: right forearm; vc 16:00 Follow up: Response: No adverse reaction vc 17:11 Drug: Magnesium Sulfate 2 grams Route: IVPB; Infused Over: 2 hrs; Site: right forearm; vc 18:30 Follow up: IV Status: Completed infusion; IV Intake: 100ml vc Disposition: 06/23/20 16:07 Hospitalization ordered by Eleazar London for Inpatient Admission. Preliminary diagnosis are Sepsis, unspecified organism, Type 2 diabetes mellitus, Edema, unspecified, Pneumonia due to other specified bacteria, Dyspnea, Hypoxemia, Hypo-osmolality and hyponatremia, Hypomagnesemia, Cardiomegaly. - Bed requested for Telemetry/MedSurg (Inpatient). - Status is Inpatient Admission. vc - Condition is Fair. - Problem is new. - Symptoms have improved. Signatures: Dispatcher [employer] EDMD Beatriz Gupta RN RN dw Anderson, Corey, MD MD cha Calcote, Vanessa, RN RN vc Lewis, Lynsay, RN RN ll1 Corrections: (The following items were deleted from the chart) 16:31 16:07 Hospitalization Ordered by Eleazar London MD for Inpatient Admission. Preliminary [facility] diagnosis is Sepsis, unspecified organism; Type 2 diabetes mellitus; Edema, unspecified; Pneumonia due to other specified bacteria; Dyspnea; Hypoxemia. Bed requested for Telemetry/MedSurg (Inpatient). Status is Inpatient Admission. Condition is Fair. Problem is new. Symptoms have improved. [facility] 16:40 16:31 06/23/2020 16:07 Hospitalization Ordered by Eleazar London MD for Inpatient dw Admission. Preliminary diagnosis is Sepsis, unspecified organism; Type 2 diabetes mellitus; Edema, unspecified; Pneumonia due to other specified bacteria; Dyspnea; Hypoxemia; Hypo-osmolality and hyponatremia; Hypomagnesemia; Cardiomegaly. Bed requested for Telemetry/MedSurg (Inpatient). Status is Inpatient Admission. Condition is Fair. Problem is new. Symptoms have improved. [facility] 19:02 16:40 06/23/2020 16:07 Hospitalization Ordered by Eleazar London MD for Inpatient vc Admission. Preliminary diagnosis is Sepsis, unspecified organism; Type 2 diabetes mellitus; Edema, unspecified; Pneumonia due to other specified bacteria; Dyspnea; Hypoxemia; Hypo-osmolality and hyponatremia; Hypomagnesemia; Cardiomegaly. Bed requested for Telemetry/MedSurg (Inpatient). Status is Inpatient Admission. Condition is Fair. Problem is new. Symptoms have improved. dw
[2020-06-23 16:18] LABS: Albumin 2.9 g/dL (3.4-5.0); Bilirubin Total 1.9 mg/dL (0.2-1.0); Potassium 4.3 mmol/L (3.5-5.1); Protein, Total 6.5 g/dL (6.4-8.2); Troponin (Emerg Dept Use Only) 0.05 ng/mL (0.0-0.045)
[2020-06-23] MEDS ORDERED: ACETAMINOPHEN 500 MG TAB PO PRN (16:18)
[2020-06-23] MEDS ORDERED: ONDANSETRON 4 MG/2 ML VIAL IV PRN (16:18)
[2020-06-23 16:19] LABS: Magnesium 1.1 mg/dL (1.8-2.4)
[2020-06-23 16:25] LABS: Blood Morphology Comment NOT SEEN (NOT SEEN); Platelet Estimate ADEQ; Urine White Blood Cell Casts OK
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
--- NOTE | 2020-06-23 16:34 | RAD REPORT ---
EXAM DESCRIPTION: RAD - Chest Single View - 06/23/2020 3:57 pm CLINICAL HISTORY: COUGH COMPARISON: Portable February 2020 TECHNIQUE: AP portable chest image was obtained 06/23/2020 3:57 pm . FINDINGS: Exam has motion degradation limitation. Large body habitus contributes as well. No periphe ral mass or consolidations seen. Interstitial edema or infiltrate cannot be accurately assessed due t o the amount of respiratory motion. Fullness of the right hilum is similar to comparison. Significant cardiomegaly is present. Central vasculature is mildly prominent. These findings are not substantial ly different. Defibrillator is in place. No acute bony abnormality seen. No acute aortic findings suspected. IMPRESSION: Exam is limited. No focal consolidation seen. Any possible interstitial edema or infiltr ate cannot be accurately assessed due to the severity of motion. Significant cardiomegaly matching prior imaging.
[2020-06-23] MEDS ORDERED: Magnesium Sulfate 2gm IVPB 2 G/50 ML BAG IV ONE ×2 (17:16→17:35)
[2020-06-23] MEDS ORDERED: LIDOCAINE VISCOUS 2% SOLN 15 ML UDC ONE (17:16)
[2020-06-23] MEDS ORDERED: CYCLOBENZAPRINE 10 MG TAB PO PRN (17:31)
[2020-06-23 17:47] LABS: Urine Blood NEGATIVE (NEG); Urine Glucose NEGATIVE (NEG); Urine Protein NEGATIVE (NEG); Urine Specific Gravity 1.025 (1.005-1.030); Urine pH 5.5 (5.0-7.0)
[2020-06-23] MEDS ORDERED: FUROSEMIDE 40 MG/4 ML VIAL IV SCH (17:50)
[2020-06-23] MEDS ORDERED: METHYLPREDNISOLONE 40 MG INJ IV SCH (18:00)
[2020-06-23] MEDS ORDERED: ALBUMIN HUMAN 25% 100 ML IV ONE ×2 (18:00→19:30)
[2020-06-23] MEDS ORDERED: carvediloL 3.125 MG TAB PO SCH (18:00)
[2020-06-23 19:10] VITALS: BMI 37.5
[2020-06-23] MEDS: FUROSEMIDE 40 MG/4 ML VIAL IV SCH (19:30)
[2020-06-23] MEDS: carvediloL 3.125 MG TAB PO SCH (19:30)
[2020-06-23] MEDS: ENOXAPARIN 100 MG/ML SYR SQ SCH (20:30)
[2020-06-23] MEDS: METHYLPREDNISOLONE 40 MG INJ IV SCH (20:30)
[2020-06-23] MEDS: SPIRONOLACTONE 25 MG TABLET PO SCH (21:00)
[2020-06-24] MEDS: METHYLPREDNISOLONE 40 MG INJ IV SCH (00:26)
[2020-06-24] MEDS: FUROSEMIDE 40 MG/4 ML VIAL IV SCH ×3 (01:00→17:00)
[2020-06-24] MEDS ORDERED: Magnesium Sulfate 2gm IVPB 2 G/50 ML BAG IV ONE (01:47)
--- NOTE | 2020-06-24 03:42 | P.PN ---
Date of Service: 06/24/20 Called to see patient because of anasarca. Patient with severe cardiomyopathy. Stress test revealed an EF of 15%. Echocardiogram states it is about 27%. Patient has significant bilateral lower extremity edema. In December, patient refused heart catheterization. With renal impairment may need to hold off-until renal protective medications given. He may need inotropics support to assist with diuresing. Will get Cardiology consultation. Poor prognosis.
[2020-06-24] MEDS ORDERED: FUROSEMIDE 20 MG/ 2ML VIAL IV ONE (03:47)
[2020-06-24] MEDS ORDERED: DIGOXIN 0.25 MG/ML AMP IV SCH (04:00)
[2020-06-24] MEDS: carvediloL 3.125 MG TAB PO SCH ×2 (06:00→17:06)
[2020-06-24 06:42] LABS: Absolute Lymphocytes (CBC) 0.6 K/uL (0.7-4.9); Basophils % 0.2 % (0-1.3); MPV 9.6 fL (7.6-11.3)
[2020-06-24 07:00] LABS: Albumin 2.8 g/dL (3.4-5.0); Bilirubin Total 2.3 mg/dL (0.2-1.0); Magnesium 1.8 mg/dL (1.8-2.4); Phosphorus 3.3 mg/dL (2.5-4.9); Potassium 3.4 mmol/L (3.5-5.1); Protein, Total 6.6 g/dL (6.4-8.2)
[2020-06-24] MEDS ORDERED: GLUCAGON 1 MG/VIAL IM PRN (07:57)
[2020-06-24] MEDS ORDERED: D50W 25 GM/50 ML SYRINGE/VIAL IV PRN (07:57)
[2020-06-24] MEDS: ENOXAPARIN 100 MG/ML SYR SQ SCH (08:00)
[2020-06-24] MEDS: PANTOPRAZOLE 40MG TABLET PO SCH (08:02)
[2020-06-24] MEDS: SPIRONOLACTONE 25 MG TABLET PO SCH (08:03)
[2020-06-24] MEDS: ASPIRIN EC 81 MG TAB PO SCH (08:03)
[2020-06-24] MEDS: CLOPIDOGREL 75 MG TABLET PO SCH (08:04)
[2020-06-24] MEDS: INSULIN -REGULAR HUMAN 50 UNIT/0.5 ML ML SQ SCH ×4 (08:47→20:26)
[2020-06-24] MEDS ORDERED: POTASSIUM CL SA 10 MEQ TAB PO ONE (11:00)
[2020-06-24] MEDS ORDERED: MAGNESIUM SULFATE 1 gm IVPB 1 GM/100 ML BAG IV ONE (11:00)
--- NOTE | 2020-06-24 16:47 | P.PN ---
Subjective Date of Service: 06/24/20 Primary Care Provider: Unknown Chief Complaint: SOB Subjective: Other (Patient improving. Less shortness of breath.) Physical Examination - Vital Signs Temperature: 97.4 F Blood Pressure: 112/83 Pulse: 78 Respirations: 16 Pulse Ox (%): 97 - Physical Exam General: Alert HEENT: Atraumatic Neck: Supple Respiratory: Clear to auscultation bilaterally Cardiovascular: Normal pulses, Regular rate/rhythm Gastrointestinal: Normal bowel sounds Integumentary: Tenderness/swelling (Lower extremity edema improved) Neurological: Normal speech, Normal strength at 5/5 x4 extr, Normal tone - Studies Microbiology Data (last 24 hrs): 06/23/20 15:35 Nasopharnyx Influenza Type A Antigen Screen - Final 06/23/20 15:35 Nasopharnyx Influenza Type B Antigen Screen - Final Medications List Reviewed: Yes Assessment & Plan Discharge Plan: Home Plan to discharge in: 48 Hours Physician Review Additional Text: Impression: Acute on chronic systolic CHF with history of cardiomyopathy and CAD Diabetes mellitus type 2 insulin-dependent Hypertension Hyponatremia Hyperlipidemia COPD Poor compliance Plan: Acute on chronic systolic CHF with history of cardiomyopathy and CAD: Continue IV diuretic therapy. Teach on 1500 cc per day fluid restriction. Patient also on Aldactone. Will discuss further with cardiology for further recommendation. Will monitor closely. Patient with recent ejection fraction around 15-25%. Patient with prior abnormal stress test. Patient also with prior refusal of heart catheterization. Will discuss with cardiology further as the patient may require heart catheterization at this time to further evaluate and address. medications reviewed. Adjust medications accordingly. Will adjust Lovenox per DVT prophylaxis. Diabetes mellitus type 2 insulin-dependent: Will check A1c. Will provide Accu- Cheks and sliding scale. Will start basal insulin. Hypertension: Continue medication Hyponatremia: Likely hypervolemic in nature. Will consult nephrology for further recommendation Hyperlipidemia: Will check fasting lipid panel COPD: Continue with Dulera. Maintain oxygen. Patient may require home oxygen at discharge Poor compliance: Compliance addressed in detail. Time Spent Managing Pts Care (In Minutes): 55
[2020-06-24] MEDS ORDERED: ALPRAZOLAM 0.25 MG TABLET PO PRN (18:19)
[2020-06-24] MEDS: HYDROCODONE/APAP 10/325 TAB PO PRN (20:37)
[2020-06-24] MEDS: DULERA 200/5 (MOMETASONE/FORMOTEROL) INHALER IH SCH (21:00)
[2020-06-24] MEDS ORDERED: INSULIN GLARGINE 100 UNITS/ML SQ SCH (21:00)
[2020-06-25] MEDS: FUROSEMIDE 40 MG/4 ML VIAL IV SCH ×2 (01:00→09:00)
--- NOTE | 2020-06-25 01:45 | CON ---
Date of Consultation: 06/24/2020 Chief Complaint: Congestive heart failure, cardiorenal syndrome, severe hyponatremia. History Of Present Illness: The patient is 54-year-old man with past medical history of hypertension , hyperlipidemia, ADHD, diabetes mellitus, diabetic kidney disease, chronic and acute cardiorenal syn drome, severe congestive heart failure with depressed systolic function, history of coronary artery d isease and previously had myocardial infarction. He has history of PTSD, peripheral vascular disease , and osteomyelitis. He came to the hospital because of shortness of breath and some decreased urine output and fluid retention. He was progressively worse over the last 3 days prior to this admission . He had orthopnea and PND. Denies wheezing, syncope, or palpitation. He had previous admission fo r CHF exacerbation and hyponatremia related to cardiorenal syndrome, fluid overload and dilutional ef fect of volume overload. Review of Systems: General: Denies fever or chills. Eyes: Denies vision changes. Ears, Nose, Mouth, and Throat: Denies sore throat or earache. Respiratory: Shortness of breath, dyspnea on exertion, PND, and orthopnea. Denies wheezing or hemop tysis. GI: Denies nausea or vomiting. : Denies dysuria or hematuria. Musculoskeletal: Denies muscle aches or joint swelling. Denies gout. All other systems reviewed and all are negative. Past Medical History: Hypertension, hypertensive heart and kidney disease, diabetes mellitus, anxiet y, coronary artery disease, systolic dysfunction, chronic kidney disease stage 3, diabetic kidney dis ease with cardiorenal syndrome, sleep apnea, obesity, peripheral vascular disease. Past Surgical History: Left foot surgery due to abscess, defibrillator, pacemaker, cholecystectomy, cardiac stents x4, right foot surgery, amputation of the third toe. Social History: Former smoker. Alcohol; denies active alcohol, denies previous history of alcohol. Denies history of drugs. Physical Examination: Vital Signs: Blood pressure 116/68, heart rate is 74, temperature is 99.4, and respiratory rate 16. GENERAL: The patient is alert, mild respiratory distress. He is obese. HEENT: Eyes; anicteric sclerae. Atraumatic, normocephalic, no oozing. Ears, nose, mouth and throat ; oral mucosa pink, no oozing. Neck: Supple. No JVD. No bruits. Cardiovascular: S1 and S2. No pericardial friction rub. Abdomen: Soft, benign, nontender. No rebound. No guarding. No CVA tenderness. Musculoskeletal: No gout. No muscle tenderness. Neurological: Moving extremities, cranial nerves intact. Psychiatric: Alert and oriented x3. Normal affect. Laboratory Data: WBC 6.9, hemoglobin 12.7, hematocrit 37.8, and platelet count 161,000. Sodium 124, potassium 4.3, BUN 27, creatinine 1.34, glucose 153, magnesium 1.1, total bilirubin 1.9, AP 127. La b work today; sodium 125, potassium 3.4, chloride 93, CO2 of 22, BUN 31, creatinine 1.26, glucose 231 , total bilirubin 2.3, phosphorus 3.3, and calcium 8.1. Urinalysis showed specific gravity 1.025, pH 5.5, sodium random 16, urine osmolality 471, ketones negative, blood negative, nitrites negative, ur ine protein negative. Chest x-ray showed no focal consolidation, possible interstitial edema or infi ltrate, but cannot be assessed due to severity of motion artifact, significant cardiomegaly, much in prior imaging test. Impression And Plan: 1.The patient has history of chronic kidney disease, diabetic kidney disease, hypertensive heart and kidney disease. He developed progressively worse hyponatremia and cardiorenal syndrome. The patien t has chronic hyponatremia due to chronic cardiorenal syndrome. Baseline sodium level is usually ran ging from 129 to 136. On admission, sodium level was 125. The patient is taking Lasix and spironola ctone for cardiorenal syndrome. Potassium level remains low. There is a questionable compliance wit h medication. 2.The patient was started on furosemide for congestive heart failure exacerbation. Creatinine level is trending down and it was 1.34 on admission with high BUN and creatinine ratio, BUN was 27 and 31. The patient will continue Lasix for congestive heart failure. There is hyponatremia related to con gestive heart failure exacerbation and the patient will be consulted by director of clinical trials, recommend to sophie saundersor troponin level. 3.There is no evidence of nephritis. The patient although may need renal ultrasound to re-evaluate kidney size and rule out hydronephrosis. 4.The patient has hypokalemia. The patient will continue potassium supplements and spironolactone c urrently is on hold. 5.Carvedilol dose was 3.125 twice a day. Continue current dose, adjust treatment as needed accordin g to blood pressure. JENNIFER/GERHARD Voice ID: [id number] Report ID: [id number]
[2020-06-25] MEDS: HYDROCODONE/APAP 10/325 TAB PO PRN ×3 (02:12→13:04)
[2020-06-25] MEDS: carvediloL 3.125 MG TAB PO SCH ×2 (05:51→18:00)
[2020-06-25 06:21] LABS: Basophils % 0.1 % (0-1.3); Hematocrit 37.7 % (39.6-49.0); Lymphocytes % 8.9 % (15.3-44.8); MPV 9.6 fL (7.6-11.3); RBC Red Blood Cell Count 4.04 M/uL (4.33-5.43)
[2020-06-25 06:52] LABS: Magnesium 1.7 mg/dL (1.8-2.4); Potassium 4.1 mmol/L (3.5-5.1)
[2020-06-25] MEDS: CLOPIDOGREL 75 MG TABLET PO SCH (08:26)
[2020-06-25] MEDS: ASPIRIN EC 81 MG TAB PO SCH (08:26)
[2020-06-25] MEDS: PANTOPRAZOLE 40MG TABLET PO SCH (08:26)
[2020-06-25] MEDS: DULERA 200/5 (MOMETASONE/FORMOTEROL) INHALER IH SCH ×3 (08:27→21:17)
[2020-06-25] MEDS: INSULIN -REGULAR HUMAN 50 UNIT/0.5 ML ML SQ SCH ×4 (08:29→21:18)
[2020-06-25] MEDS ORDERED: POTASSIUM 25 MEQ EFFERV TAB PO SCH (09:00)
[2020-06-25] MEDS ORDERED: ENOXAPARIN 40 MG/0.4 ML SQ SCH (09:00)
[2020-06-25] MEDS ORDERED: MAGNESIUM SULFATE 1 gm IVPB 1 GM/100 ML BAG IV ONE (09:00)
[2020-06-25 10:04] LABS: Blood Morphology Comment NOT SEEN (NOT SEEN); Platelet Estimate ADEQ; Urine White Blood Cell Casts OK
--- NOTE | 2020-06-25 10:36 | RAD REPORT ---
EXAM DESCRIPTION: USExtrem Venous W Compress Bil06/25/2020 9:34 am CLINICAL HISTORY: Leg swelling COMPARISON: 2017 FINDINGS: The common femoral, superficial femoral, right popliteal popliteal and posterior tibial ve ins bilaterally are compressible and demonstrate augmentation. Doppler demonstrates good flow. Echogenic material is present within the left popliteal vein. The vein is partially compressible. IMPRESSION: Thrombus left popliteal vein appears acute or subacute
--- NOTE | 2020-06-25 12:28 | P.PN ---
Subjective Date of Service: 06/25/20 Primary Care Provider: Unknown Chief Complaint: SOB Subjective: Improving (Patient appears improved. Shortness of breath also improved. Increase anxiety noted.) Physical Examination - Vital Signs Temperature: 96.8 F Blood Pressure: 112/77 Pulse: 81 Respirations: 20 Pulse Ox (%): 94 - Physical Exam General: Alert, Cooperative, Other (Increase anxiety) HEENT: Atraumatic Neck: Supple Respiratory: Clear to auscultation bilaterally (Anteriorly) Cardiovascular: Normal pulses, Regular rate/rhythm Integumentary: Tenderness/swelling (Edema to the lower extremities still present but slightly improved) Neurological: Normal speech, Normal strength at 5/5 x4 extr, Normal tone, Normal affect - Studies Microbiology Data (last 24 hrs): 06/23/20 15:35 Nasopharnyx Coronavirus COVID-19 PCR - Final Medications List Reviewed: Yes Assessment & Plan Discharge Plan: Other (Home health/physical therapy/home oxygen verses skilled placement) Plan to discharge in: 24 Hours (To 48 hr) Physician Review Additional Text: Impression: Acute on chronic systolic CHF with history of cardiomyopathy and CAD Diabetes mellitus type 2 insulin-dependent Hypertension Hyponatremia Hyperlipidemia COPD Poor compliance Plan: Acute on chronic systolic CHF with history of cardiomyopathy and CAD: Continue IV diuretic therapy. Teach on 1500 cc per day fluid restriction. Patient also on Aldactone. Recent ejection fraction around 15-25%. Recheck chest x-ray today. Patient with prior abnormal stress test but refused heart catheterization. Anticipate need for heart catheterization to further evaluate heart condition. Will discuss with cardiology. Heart catheterization appears to be ordered. Spoke at length with the patient concerning heart disease and chronic illnesses. Patient understands his chronic disease. Patient currently with home health and physical therapy. Patient will likely benefit with skilled placement. Will have forensic social worker addressed skilled placement verses continued home health/physical therapy and home oxygen. Will qualify for home oxygen as well. Patient currently on 3 L. Continue current medications at this time. Will discuss further with nephrology and cardiology. Discharge will depend on heart catheterization findings and if patient prefers to go to skilled facility versus home. I will turn the service over to the hospitalist team tomorrow. I will go the plan of care with him. Diabetes mellitus type 2 insulin-dependent: A1c 7.7. Basal insulin started. Increase Lantus to 13 units subcu daily. Continue Accu-Cheks and sliding scale. Hypertension: Continue medication-carvedilol Hyponatremia: Likely hypervolemic in nature. Continue diuresis. Nephrology consulted. Await further recommendation. Hyperlipidemia: Continue medication. Fasting lipid panel appears to be well controlled. COPD: Continue with Dulera. Maintain oxygen. Patient may require home oxygen at discharge. Respiratory to evaluate and qualify for home oxygen. Will check chest x-ray today pre Poor compliance: Compliance addressed in detail. Time Spent Managing Pts Care (In Minutes): 55
--- NOTE | 2020-06-25 13:36 | RAD REPORT ---
EXAM DESCRIPTION: Kam Thomas And Lat (2 Views)06/25/2020 1:27 pm CLINICAL HISTORY: sob COMPARISON: February 2020 FINDINGS: Partial resolution mild bilateral interstitial opacities The heart is mildly to moderately enlarged. Pacemaker leads are in place. IMPRESSION: Mild improvement in mild CHF
--- NOTE | 2020-06-25 14:27 | CON ---
Date of Consultation: 06/25/2020 Chief Complaint: Shortness of breath. History Of Present Illness: This is a 54-year-old male with known history of severe systolic congest pamela heart failure, ejection fraction at 20% range, ICD implantation, [place], coronary artery disease, DVT , diabetes, hyperlipidemia, hypertension, presented with worsening shortness of breath, orthopnea, si gnificant lower extremity edema, found to be in severe congestive heart failure. Coronavirus was not detected during this hospital stay, was started on IV diuresis and started to improve gradually, sti ll by bedside, appears to be comfortable. Apparently, he had an abnormal stress test earlier this ye ar and was taken to the cardiac catheterization laboratory. However, he refused the procedure while he was on the table and cardiac cath was not performed and he is noted to have multiple stents placed in the past. Past Medical History: As outlined above in the HPI. Past Surgical History: Cardiac stent placement, bilateral feet surgery due to trauma. Medications: Refer to reconciliation sheet for detailed list. Allergies: SULFA AND RIFAMPIN. Social History: Does not drink or use any drugs. He is an ex-smoker. Physical Examination: Vital signs: Revealed a temperature is 97.6, pulse 89, breathing at 18, blood pressure 101/70, satur ating 97% with nasal cannula. General: This is a middle-aged male, in no apparent distress. Head and neck: Pupils are equal, reactive to light. Intact eye movements. Positive JVD. No cervic al lymphadenopathy. Neck: Supple. Thyroid is not enlarged. Lungs: Crackles on the bases. No accessory muscle use or m uscle retraction. Heart: Regular rate and rhythm. No extra sounds. Abdomen: Soft, nontender. Bowel sounds positive. No organomegaly. No masses or hernia. No rigidi ty or rebound. Extremities: No clubbing, cyanosis, but there is edema that is 3+ bilaterally. Skin: No rashes. Neurologic: Alert, awake, oriented x3. No acute infiltrate. Investigations: Sodium 131, BUN is 31, creatinine 0.99, which is an improvement from the initial lab s at the presentation. Extremity venous studies, has a DVT on the left popliteal vein. Chest x-ray, edema. Assessment/plan: 1.Acute on chronic systolic congestive heart failure exacerbation, currently on Lasix 40 mg IV q.8 h ours. I agree with that and continue to monitor BUN, creatinine, electrolytes. I will recommend car diac catheterization. Discussed risks, benefits, and alternatives with him. He agrees with the proc arnulfo and we will plan for doing it tomorrow morning to evaluate the presence of ischemia that is wor sening his cardiac function. Also, we will obtain LVEDP as well to further cut the diuresis. Once t he patient is euvolemic, guidelines directed medical therapy for heart failure will be recommended an d we will follow the patient with you and give recommendation as we progress. 2.Coronary artery disease with abnormal stress test. He refused a heart catheterization earlier thi s year. In fact, he was placed on the cardiac catheterization table and then he refused. Discussed that with him today and he is agreeable to proceed. We will schedule him for tomorrow to evaluate th e presence of ischemia as part of worsening cardiac function. Of note, if the patient needs anticoag ulation for possible DVT, please put him on IV heparin instead of Lovenox in preparation for heart ca theterization tomorrow. I appreciate letting me see your patient in consultation. /GERHARD Voice ID: [id number] Report ID: [id number]
[2020-06-25] MEDS ORDERED: FUROSEMIDE 40 MG/4 ML VIAL IV SCH (17:00)
[2020-06-25] MEDS ORDERED: INSULIN GLARGINE 100 UNITS/ML SQ SCH (21:00)
[2020-06-25] MEDS ORDERED: FENTANYL CITR 100 MCG/2 ML IV PRN (21:05)
[2020-06-25] MEDS ORDERED: ZOLPIDEM TARTRATE 10 MG TABLET PO STA (21:06)
[2020-06-25] MEDS ORDERED: FENTANYL CITR 100 MCG/2 ML IV ONE (21:06)
--- NOTE | 2020-06-25 23:42 | PN ---
Date of Progress Note: 06/25/2020 Chief Complaint: Hyponatremia hypoosmolar, cardiorenal syndrome, congestive heart failure with systo lic dysfunction. Subjective: The patient is a 54-year-old man with history of hypertension, hyperlipidemia, diabetes mellitus, diabetic kidney disease, chronic and acute cardiorenal syndrome, severe congestive heart fa ilure with depressed systolic function, history of coronary artery disease, and previous history of m yocardial infarction. The patient has history of PTSD, peripheral vascular disease, history of osteo myelitis, diabetic foot infection. The patient presented to the hospital after 3 days of worsening s hortness of breath. The patient has PND and orthopnea. The patient is started on IV diuretics. He was found to have hypokalemia and hypomagnesemia, and replacement with electrolytes were started acco rdingly. Spironolactone was held and the patient received IV Lasix with potassium replacement. Sodi um level is gradually improving and the patient has adequate diuresis. Fluid balance was -1600. The patient will continue diuretics. Shortness of breath is alleviated. Review of Systems: Denies PND or orthopnea today. Physical Examination: Lungs: Diminished breath sounds at bases. Heart: S1, S2. Abdomen: Soft, benign. Extremities: Slight edema, 2+ in both ankles. Laboratory Data: Hemoglobin 12.5, WBC 11.2, platelet count is 166,000. Sodium is 131, potassium 4.1 , chloride 96, CO2 24, BUN 31, creatinine 0.9, glucose 249, magnesium 1.7, calcium 8.3. Impression And Plan: 1.Hypomagnesemia, severe, secondary to diuretics. The patient has history of hypomagnesemia, which is likely related to diuretic effect. Magnesium level was replaced and is improving from 1.1 to 1.7 gradually. 2.Hyponatremia secondary to fluid overload in setting of cardiorenal syndrome. Sodium level improve d from 125 to 131 over last 24 hours. Monitor closely and diuretic dose was adjusted today. Continu e loop diuretics. Spironolactone will be resumed for potassium sparing effect as well as for congest pamela heart failure. Potassium replacement was ordered. Potassium 3.4 today. 3.Continue beta edyta for congestive heart failure, cardiorenal syndrome. EB/MODL Voice ID: [id number] Report ID: [id number]
[2020-06-26 00:36] VITALS: TEMP 97.6
[2020-06-26 04:26] VITALS: BP 92/60
[2020-06-26 04:31] VITALS: O2SAT 93
[2020-06-26] MEDS: carvediloL 3.125 MG TAB PO SCH (06:00)
[2020-06-26] MEDS: CLOPIDOGREL 75 MG TABLET PO SCH (06:02)
[2020-06-26 06:03] LABS: Absolute Lymphocytes (CBC) 1.8 K/uL (0.7-4.9); Basophils % 0.4 % (0-1.3); Hematocrit 36.1 % (39.6-49.0); Lymphocytes % 19.5 % (15.3-44.8); MPV 9.1 fL (7.6-11.3); RBC Red Blood Cell Count 3.94 M/uL (4.33-5.43)
[2020-06-26 06:09] LABS: BUN Blood Urea Nitrogen 24 mg/dL (7-18); Bicarbonate 28 mmol/L (21-32); Glucose Level 182 mg/dL (74-106); Magnesium 1.8 mg/dL (1.8-2.4); Potassium 4.1 mmol/L (3.5-5.1); Sodium Level 135 mmol/L (136-145)
[2020-06-26] MEDS ORDERED: MAGNESIUM SULFATE 1 gm IVPB 1 GM/100 ML BAG IV ONE (08:00)
[2020-06-26] MEDS ORDERED: NICOTINE 21 MG/PAT TD SCH (09:00)
[2020-06-26] MEDS ORDERED: SPIRONOLACTONE 25 MG TABLET PO SCH (09:00)
--- NOTE | 2020-06-26 11:46 | P.DS ---
Admission Date: 06/23/20 Discharge Date: 06/26/20 Primary Care Provider: Unknown Disposition: AMA-LEFT AGAINST MEDICAL ADVIC Reason for Admission: SOB Hospital Course: Patient is a 54-year-old male who was admitted with decompensated systolic heart failure with with EF of 15-25%. There was a plan to proceed with diagnostic angiogram 2 days. However, Mr Corona became inpatient and a left AMA before he could be examined by the primary team. Vital Signs/Physical Exam: Temp Pulse Resp BP Pulse Ox 97.6 F 83 18 92/60 93 06/26/20 04:00 06/26/20 06:00 06/26/20 04:00 06/26/20 06:00 06/26/20 04:00 Laboratory Data at Discharge: WBC 9.3 K/uL (4.3-10.9) D 06/26/20 05:42 Hgb 12.6 g/dL (13.6-17.9) L 06/26/20 05:42 Hct 36.1 % (39.6-49.0) L 06/26/20 05:42 Plt Count 163 K/uL (152-406) 06/26/20 05:42 PT 21.6 SECONDS (9.5-12.5) H 06/23/20 15:10 INR 1.85 06/23/20 15:10 Sodium 135 mmol/L (136-145) L 06/26/20 05:42 Potassium 4.1 mmol/L (3.5-5.1) 06/26/20 05:42 BUN 24 mg/dL (7-18) H 06/26/20 05:42 Creatinine 0.78 mg/dL (0.55-1.3) 06/26/20 05:42 Glucose 182 mg/dL (74-106) H 06/26/20 05:42 Phosphorus 3.3 mg/dL (2.5-4.9) 06/24/20 06:28 Magnesium 1.8 mg/dL (1.8-2.4) 06/26/20 05:42 Total Bilirubin 2.3 mg/dL (0.2-1.0) H 06/24/20 06:28 AST 79 U/L (15-37) H 06/24/20 06:28 ALT 45 U/L (12-78) 06/24/20 06:28 Alkaline Phosphatase 130 U/L (45-117) H 06/24/20 06:28 Triglycerides 82 mg/dL (<150) 06/25/20 05:44 Cholesterol 51 mg/dL (<200) 06/25/20 05:44 HDL Cholesterol 16 mg/dL (40-60) L 06/25/20 05:44 Cholesterol/HDL Ratio 3.19 06/25/20 05:44 Home Medications: Aspirin [Aspirin EC 81 MG] 81 mg PO DAILY #30 tablet.dr 01/12/20 Clopidogrel Bisulfate [Plavix*] 75 mg PO DAILY #30 tablet 01/12/20 Cyclobenzaprine [Flexeril*] 5 mg PO TIDP PRN #20 tab 01/12/20 Furosemide [Lasix] 80 mg PO DAILY #60 tab 01/12/20 Mometasone/Formoterol [Dulera 200 Mcg/5 Mcg Inhaler] 2 puff IH BID #1 inhaler 01/12/20 Pantoprazole [Protonix Tab*] 40 mg PO DAILYAC #30 tab 01/12/20 Spironolactone [Aldactone*] 25 mg PO BID #60 tab 01/12/20 carvediloL [Coreg*] 3.125 mg PO BID 6AM 6PM #60 tab 01/12/20 Hydrocodone 10/APAP 325 [[place] 10/325*] 1 tab PO Q4H PRN 06/23/20 Insulin NPH Hum/Reg Insulin Hm [Novolin 70-30 Flexpen] 25 units SQ DAILY 06/23/20 Zolpidem Tartrate [Ambien*] 1 tab PO BEDTIME PRN PRN 06/23/20
--- NOTE | 2020-06-27 02:49 | PN ---
Date of Progress Note: 06/26/2020 Chief Complaint: Hyponatremia hypoosmolar, cardiorenal syndrome, congestive heart failure with systo lic dysfunction and congestive heart failure exacerbation. Subjective: The patient is a 54-year-old man with history of hypertension, hyperlipidemia, diabetes mellitus, diabetic kidney disease, chronic and acute cardiorenal syndrome, severe congestive heart fa ilure with depressed systolic function. The patient presented to the hospital because of shortness o f breath and fluid overload. The patient was found to have hyponatremia. Spironolactone was on hold . The patient received potassium replacement for hypokalemia and loop diuretic for volume control. The patient had both legs edema and shortness of breath. The patient received replacement for severe hypomagnesemia and likely hypomagnesemia was due to diuretic affect. Review of Systems: Denies PND or orthopnea. Physical Examination: Lungs: Diminished breath sounds at bases. Heart: S1, S2. Abdomen: Soft, benign. Extremities: Edema in both ankles. Laboratory Data: WBC 11.2. Potassium 4.1, sodium 131, chloride 96, CO2 24, BUN 31, creatinine 0.9, magnesium 1.7. Impression And Plan: 1.Hyponatremia, cardiorenal syndrome. Sodium level improved today to 135. Continue loop diuretics. The patient is undergoing treatment with furosemide for volume control. The patient has severe con gestive heart failure. Avoid nephrotoxic medication. 2.Hypertension. Blood pressure controlled. Monitor blood pressure and adjust treatment accordingly . JENNIFER/GERHARD Voice ID: [id number] Report ID: [id number]
== END 2020-06-26 08:00 | disposition left against medical advice (07) | DRG 291 ==
LOC: ER 14:27 → ERHOLD 16:19 → 4TH 17:56 → 2ND 06-24 12:26
PROVIDERS: ADMIT Family Medicine; ATTEND Family Medicine
DX: I13.0 Hypertensive heart and chronic kidney disease with heart failure and stage 1 through stage 4 chronic kidney disease, or unspecified chronic kidney disease (principal); J96.01 Acute respiratory failure with hypoxia; I50.23 Acute on chronic systolic (congestive) heart failure; E87.1 Hypo-osmolality and hyponatremia; E78.5 Hyperlipidemia, unspecified; I25.2 Old myocardial infarction; I25.10 Atherosclerotic heart disease of native coronary artery without angina pectoris; Z88.1 Allergy status to other antibiotic agents; Z88.8 Allergy status to other drugs, medicaments and biological substances; Z79.82 Long term (current) use of aspirin; Z79.02 Long term (current) use of antithrombotics/antiplatelets; Z79.899 Other long term (current) drug therapy; Z95.810 Presence of automatic (implantable) cardiac defibrillator; Z95.5 Presence of coronary angioplasty implant and graft; Z90.49 Acquired absence of other specified parts of digestive tract; Z89.429 Acquired absence of other toe(s), unspecified side; Z87.891 Personal history of nicotine dependence; E66.9 Obesity, unspecified; Z68.37 Body mass index [BMI] 37.0-37.9, adult; F41.9 Anxiety disorder, unspecified; E11.51 Type 2 diabetes mellitus with diabetic peripheral angiopathy without gangrene; I95.9 Hypotension, unspecified; N18.3 Chronic kidney disease, stage 3 (moderate); N28.9 Disorder of kidney and ureter, unspecified; R79.89 Other specified abnormal findings of blood chemistry; E83.42 Hypomagnesemia; Z20.828 Contact with and (suspected) exposure to other viral communicable diseases; Z53.29 Procedure and treatment not carried out because of patient's decision for other reasons; Z86.718 Personal history of other venous thrombosis and embolism; Z79.4 Long term (current) use of insulin; J44.9 Chronic obstructive pulmonary disease, unspecified; Z91.19 Patient's noncompliance with other medical treatment and regimen; I42.9 Cardiomyopathy, unspecified; E11.22 Type 2 diabetes mellitus with diabetic chronic kidney disease; E87.6 Hypokalemia
CPT/HCPCS: 36415; 71045; 71046; 80048; 80053; 80061; 80076; 81003; 82140; 82947; 83036; 83605; 83735; 83880; 83930; 83935; 84100; 84145; 84300; 84484; 85025; 85610; 86850; 86900; 86901; 87040; 87086; 87088; 87804; 93005; 93970; 94760; 96365; 96375; 99285; J1160; J1650; J1815; J1940; J2920; J3010; J3370; J3475; J7030; J7040; J7050; J7606; P9047; U0002

== ENCOUNTER 2020-08-03 11:46 | Inpatient (IN) | payer OTHER ==
--- OUTSIDE RECORDS SUMMARY | 2020-08-03 11:49 | XMS REPORT | Clinical Summary ---
:[address] [facility] Address [address] [place] [address] Care Team Providers Name Role Phone Sami Alexander MD Primary Care Provider [phone] Alon Woody Unavailable Allergies Active Allergy [...] Encounters Date Type Specialty Care Team Description 06/23/2020 Lab Requisition Lab 01/18/2020 Travel 01/18/2020 Orders Only General Internal Medicine 01/17/2020 - Hospital Encounter Cardiology Zuniga, Sejal Acute on chronic heart failure, unspecified heart failure type (HCC) (Primary Dx); 01/21/2020 MD Meño Type 2 diabetes mellitus treated with insulin (HCC) after 08/03/2019 Social History Tobacco Use Types Packs/Day Years [...] Taken Blood Pressure 104/65 01/21/2020 9:15 AM SPA MANAGER Pulse 84 01/21/2020 9:15 AM SPA MANAGER Temperature 36.4 C (97.6 F) 01/21/2020 7:00 AM SPA MANAGER Respiratory Rate 18 01/21/2020 7:00 AM SPA MANAGER Oxygen Saturation 98% 01/21/2020 7:00 AM SPA MANAGER Inhaled Oxygen Concentration 35% 01/19/2020 4:00 AM SPA MANAGER Weight 114.8 kg (253 lb 1.6 oz) 01/20/2020 5:5 8 AM SPA MANAGER Height 185.4 cm (6' 1") 01/18/2020 12:00 AM SPA MANAGER Body Mass Index 33.39 01/20/2020 5:58 AM SPA MANAGER Plan of Treatment Not on file Procedures Procedure Name Priority Date/Time Associated Comments Diagnosis SARS-COV2/RT-PCR ([facility] Routine 06/23/2020 3:35 R esults for this & REF LABS) PM CDT procedure are i n the results section. REPORT OF PROCEDURE - 01/24/2020 11:11 ENDOSCOPY SCAN AM SPA MANAGER RHYTHM STRIP - SCAN 01/24/2020 11:11 AM SPA MANAGER POCT-GLUCOSE METER Routine 01/21/2020 8:24 Resul ts for this AM SPA MANAGER procedure are i n the results section. B-TYPE NATRIURETIC Routine 01/21/2020 6:33 Resul ts for this FACTOR (BNP) AM SPA MANAGER procedure are i n the results section. MAGNESIUM Routine 01/21/2020 6:33 Results for this AM SPA MANAGER procedure are i n the results section. CBC (HEMOGRAM ONLY) Routine 01/21/2020 6:33 Resu lts for this AM SPA MANAGER procedure are i n the results section. BASIC METABOLIC PANEL Routine 01/21/2020 6:33 Re sults for this (7) AM SPA MANAGER procedure are i n the results section. POCT-GLUCOSE METER Routine 01/21/2020 12:05 Resul ts for this AM SPA MANAGER procedure are i n the results section. PERIPHERAL VASCULAR 01/20/2020 9:24 REPORT - SCAN PM SPA MANAGER POCT-GLUCOSE METER Routine 01/20/2020 4:35 Resul ts for this PM SPA MANAGER procedure are i n the results section. POCT-GLUCOSE METER Routine 01/20/2020 12:35 Resul ts for this PM SPA MANAGER procedure are i n the results section. POCT-GLUCOSE METER Routine 01/20/2020 7:16 Resul ts for this AM SPA MANAGER procedure are i n the results section. MAGNESIUM Routine 01/20/2020 4:59 Results for this AM SPA MANAGER procedure are i n the results section. CBC (HEMOGRAM ONLY) Routine 01/20/2020 4:59 Resu lts for this AM SPA MANAGER procedure are i n the results section. BASIC METABOLIC PANEL Routine 01/20/2020 4:59 Re sults for this (7) AM SPA MANAGER procedure are i n the results section. POCT-GLUCOSE METER Routine 01/19/2020 10:29 Resul ts for this PM SPA MANAGER procedure are i n the results section. POCT-GLUCOSE METER Routine 01/19/2020 4:46 Resul ts for this PM SPA MANAGER procedure are i n the results section. POCT-GLUCOSE METER Routine 01/19/2020 12:58 Resul ts for this PM SPA MANAGER procedure are i n the results section. POCT-GLUCOSE METER Routine 01/19/2020 7:27 Resul ts for this AM SPA MANAGER procedure are i n the results section. TSH/FREE T4 IF Routine 01/19/2020 3:46 Results f or this INDICATED AM SPA MANAGER procedure are i n the results section. MAGNESIUM Routine 01/19/2020 3:46 Results for this AM SPA MANAGER procedure are i n the results section. CBC (HEMOGRAM ONLY) Routine 01/19/2020 3:46 Resu lts for this AM SPA MANAGER procedure are i n the results section. BASIC METABOLIC PANEL Routine 01/19/2020 3:46 Re sults for this (7) AM SPA MANAGER procedure are i n the results section. B-TYPE NATRIURETIC Routine 01/19/2020 3:46 Resul ts for this FACTOR (BNP) AM SPA MANAGER procedure are i n the results section. POCT-GLUCOSE METER Routine 01/18/2020 10:58 Resul ts for this PM SPA MANAGER procedure are i n the results section. ECHOCARDIOGRAM REPORT - 01/18/2020 9:22 SCAN PM SPA MANAGER VENOUS DOPPLER LEGS Routine 01/18/2020 6:23 Resu lts for this BILATERAL PM SPA MANAGER procedure are i n the results section. POCT-GLUCOSE METER Routine 01/18/2020 4:59 Resul ts for this PM SPA MANAGER procedure are i n the results section. POCT-GLUCOSE METER Routine 01/18/2020 1:19 Resul ts for this PM SPA MANAGER procedure are i n the results section. POCT-GLUCOSE METER Routine 01/18/2020 12:44 Resul ts for this PM SPA MANAGER procedure are i n the results section. 2D ECHO W/ DOPPLER NILSA 01/18/2020 12:07 Resul ts for this (CW/PW/COLOR) PM SPA MANAGER procedure are in the results section. POCT-GLUCOSE METER Routine 01/18/2020 9:31 Resul ts for this AM SPA MANAGER procedure are i n the results section. MAGNESIUM Add-On 01/18/2020 8:39 Results for this AM SPA MANAGER procedure are i n the results section. TROPONIN I Routine 01/18/2020 8:39 Results for this AM SPA MANAGER procedure are i n the results section. XR CHEST 1 VIEW Routine 01/18/2020 3:27 Results for this PORTABLE/BEDSIDE AM SPA MANAGER procedure a re in the results section. RESPIRATORY PANEL [facility] Routine 01/18/2020 1:29 R esults for this AM SPA MANAGER procedure are i n the results section. ECG 12-LEAD Routine 01/18/2020 12:51 AM SPA MANAGER Procedure Note - Interface, External Ris In - 01/18/2020 12:53 AM SPA MANAGER Ventricular Rate 94 BPM Atrial Rate 94 BPM P-R Interval 232 ms QRS Duration 120 ms Q-T Interval 392 ms QTC Calculation(Bazett) 490 ms P Archbald 55 degrees R Archbald -81 degrees T Archbald 87 degrees Sinus rhythm with 1st degree A-V block Left anterior fascicular blo ck Possible Anterolateral infar ct , age undetermined Abnormal ECG ECG 12-LEAD Routine 01/18/2020 12:51 AM SPA MANAGER Resu lts for this procedure are i n the results section . CBC W/PLT COUNT & AUTO Routine 01/17/2020 11:24 PM SPA MANAGER Results for this DIFFERENTIAL procedure are i n the results section . LIPID PANEL Routine 01/17/2020 11:24 PM SPA MANAGER Resu lts for this procedure are i n the results section . HEMOGLOBIN A1C Routine 01/17/2020 11:24 PM SPA MANAGER Re sults for this procedure are i n the results section . TROPONIN I Routine 01/17/2020 11:24 PM SPA MANAGER Resu lts for this procedure are i n the results section . PT/APTT Routine 01/17/2020 11:24 PM SPA MANAGER Resu lts for this procedure are i n the results section . CBC W/PLT COUNT & AUTO Routine 01/17/2020 11:24 PM SPA MANAGER Results for this DIFFERENTIAL procedure are i n the results section . PHOSPHORUS Routine 01/17/2020 11:24 PM SPA MANAGER Resu lts for this procedure are i n the results section . B-TYPE NATRIURETIC FACTOR Routine 01/17/2020 11:24 PM SPA MANAGER Results for this (BNP) procedure are i n the results section . MAGNESIUM Routine 01/17/2020 11:24 PM SPA MANAGER Resu lts for this procedure are i n the results section . BASIC METABOLIC PANEL (7) Routine 01/17/2020 11:24 PM SPA MANAGER Results for this procedure are i n the results section . after 08/03/2019 Results SARS-CoV2/RT-PCR ([facility] & Ref Labs) (06/23/2020 3:35 PM CDT) SARS-COV2/RT-PCR Negative Not Detected, Negative, [facility] See external report for MEDICAL CENTER linked test SARS-COV-2 PERFORMING LAB [facility] POPPY [facility] Specimen Other Narrative Performed At Negative result for this test determines that [facility] SARS-CoV-2 RNA was not present in the specimen above the Limit of Detection (LOD).However, Negative results do not preclude SARS-CoV-2 infection and should not be used as the sole basis for treatment or patient management decisions. Negative results must be combined with clinical observations, patient history, and epidemiological information. A false negative result may occur if a specimen is improperly collected, transported or handled.A false negative result should be considered if patient's recent exposures or clinical presentation indicate that COVID-19 (SARS-CoV-2) is likely and diagnostic tests for other causes of illness are negative.Re-testing should be considered in cases of suspected false negatives. The limit of detection for this assay is 800 copies/mL. This SARS CoV-2 test is a real-time RT-PCR test intended for the qualitative detection of nucleic acid from SARS-CoV-2 in a nasopharyngeal swab specimen collected from individuals suspected of COVID-19 by their healthcare provider. This test has not been Food and Drug Administration (FDA) cleared or approved.This is a modified version of an approved Emergency Use Authorization (EUA) and is in the process of review by the FDA. Once authorized by the FDA, the issued EUA will be effective until the declaration that circumstances exist justifying the authorization of the emergency use of in vitro diagnostic tests for detection and/or diagnosis of COVID-19 is terminated under Section 564(b)(2) of the Act or the EUA is revoked under Section 564(g) of the Act. Fact Sheet for Healthcare Providers: https://www.[employer]/sites/default/files/pro duct/documents/Fact_Sheet_HC_Providers_Lyra_SA RS-CoV-2.pdf Fact Sheet for Healthcare Patients: https://www.[employer]/sites/default/files/pro duct/documents/Fact_Sheet_Patients_Lyra_SARS-C oV-2.pdf Performing Laboratory: [address] [place] [address] Performing Organization Address City/State/Zipcode Phone Number [address] [address] CENTER EKG-SCANNED (01/24/2020 11:11 AM SPA MANAGER) Narrative Performed At This result has an attachment that is no t available. RHYTHM STRIP - SCAN (01/24/2020 11:11 AM SPA MANAGER) Narrative Performed At This result has an attachment that is no t available. POC-Glucose meter (01/21/2020 8:24 AM SPA MANAGER)Only the most recent of14 results within the time period is included. POC-Glucose Meter 164 (H)Comment: : TESTED 70 - 110 mg/dL [facility] AT [address], [address]: Second Rigger/Sports Development Officer ID = [id number] for CHRISTIN MCNEAL Specimen Blood Performing Organization Address City/[facility]/Zipcode Phone Number [address] [address] [place] CBC (Hemogram only) (01/21/2020 6:33 AM SPA MANAGER)Only the most recent of3 results within the time period is included. WBC 8.6 3.5 - 10.5 K/L [facility] RBC 5.05 4.63 - 6.08 M/L [facility] Hemoglobin 15.6 13.7 - 17.5 GM/DL [facility] Hematocrit 45.5 40.1 - 51.0 % [facility] MCV 90.1 79.0 - 92.2 fL [facility] MCH 30.9 25.7 - 32.2 pg [facility] MCHC 34.3 32.3 - 36.5 GM/DL [facility] RDW 13.0 11.6 - 14.4 % [facility] Platelets 238 150 - 450 K/CU MM [facility] MPV 9.7 9.4 - 12.4 fL [facility] nRBC 0 0 - 0 /100 WBC [facility] Specimen Blood Performing Organization Address City/State/Zipcode Phone Number [address] [address] CENTER B-type Natriuretic Factor (BNP) (01/21/2020 6:33 AM SPA MANAGER)Only the most recent of 3 resultswithin the time period is included. BNP 1,285 (H) 0 - 100 pg/mL [facility] Specimen Blood Narrative Performed At Second Rigger ID - ADDIE Felton [facility] Performing Organization Address [facility] Phone Number [address] [address] CENTER Magnesium (01/21/2020 6:33 AM SPA MANAGER)Only the most recent of5 resultswithin the time period is included. Magnesium 1.3 (L) 1.6 - 2.6 mg/dL [facility] Specimen Blood Narrative Performed At Second Rigger ID - ADDIE Felton [facility] Performing Organization Address [facility] Phone Number [address] [address] [place] Basic Metabolic Panel (01/21/2020 6:33 AM SPA MANAGER)Only the most recent of4 results within the time period is included. Sodium 139 136 - 145 meq/L [facility] Potassium 3.8 3.5 - 5.1 meq/L [facility] Chloride 96 (L) 98 - 107 meq/L [facility] CO2 33 (H) 22 - 29 meq/L [facility] BUN 23 (H) 7 - 21 mg/dL [facility] Creatinine 0.92 0.57 - 1.25 mg/dL [facility] Glucose 143 (H) 70 - 105 mg/dL [facility] Calcium 10.4 (H) 8.4 - 10.2 mg/dL [facility] EGFR Comment: INSUFFICIENT CLINICAL C [facility] DATA TO CALCULATE ESTIMATED [facility] GFR. Specimen Blood Narrative Performed At Second Rigger ID - ADDIE Felton [facility] Performing Organization Address City/State/Zipcode Phone Number [facility] [address], [place] [id number] [place] PERIPHERAL VASCULAR REPORT - SCAN (01/20/2020 9:24 PM SPA MANAGER) Narrative Performed At This result has an attachment that is no t available. TSH/Free T4 If Indicated (01/19/2020 3:46 AM SPA MANAGER) TSH 0.71 0.35 - 4.94 uIU/mL [facility] Specimen Blood Narrative Performed At Second Rigger ID - DB [facility] Performing Organization Address City/[facility]/Zipcode Phone Number [facility] [address] [place] [address] [place] ECHOCARDIOGRAM REPORT - SCAN (01/18/2020 9:22 PM SPA MANAGER) Narrative Performed At This result has an attachment that is no t available. Venous doppler legs bilateral (01/18/2020 6:23 PM SPA MANAGER) Ejection Fraction [facility] ECHO HEAR TLAB [facility] CPACS Specimen Impressions Performed At Right Impression [facility] ECHO HEARTLAB [facility] CPACS 1. [...] are measured in cm Narrative Performed At [facility] - Lower Extremities DVT Study [facility] ECHO HEARTLAB [facility] Demographics Patient NameCHAZ PADILLA Date of Study 01/18/2020 54 Visit [id number] Male of 1965 Referring Alexus Swanson, Room Number 1114 Physician Sports Physiologist Amie Sanz, InterpretingAriana armando, [facility] Physician Procedure Type of Study: Veins: Lower Extremities DVT Study, VENOUS DOPPLER LEG, BILATERAL. Indications for Study:Evaluate for DVT. Patient Status:Routine. Study Location:Portable. Technical Quality:Adequate visualization . Risk Factors History of Disease + +----+------- + !Diagnosis !Date!Comments ! + +----+------- + !History/Risk Factors: !!CHF, DM, HTN, HLD ! + +----+------- + Procedure Note Interface, External Ris In - 01/20/2020 9:35 AM SPA MANAGER PV LAB - Lower Extremities DVT Study Demographics Patient Name CHAZ PADILLA Zachary e of Study 01/18/2020 Age 54 Visit Number [id number] Gen noreen Male Accession Number [id number] Zachary e of 1965 Referring LucioJanie Flores Number [id number] Physician Sports Physiologist Amie Sanz, Int erpretin Ariana Cabrera, T Daniel morgan MD Procedure Type of Study: [...] cm Performing Organization Address City/State/Zipcode Phone Number [facility] ECHO HEARTLAB [employer] [facility] 2D Echo W/Doppler(CW/PW/Color) (01/18/2020 12:07 PM SPA MANAGER) Ejection Fraction [facility] ECHO HEAR [facility] Specimen Narrative Performed At Transthoracic Echocardiography Report (T TE) [facility] ECHO HEARTLAB [employer] [facility] Demographics Patient NameCHAZ PADILLA Date of Study 01/18/2020 Male Visit [id number] Unknown Room Number 1114 Number Date of 1965Referring Physician Efrain Post MD Age 54 year(s)Sports Physiologist Abed Uli Zoya Brannon MD Physician Procedure [...] External Ris In - 01/18/2020 2:22 PM SPA MANAGER Transthoracic Echocardiography Report (TTE) Demographics Patient Name CHAZ PADILLA Date of S luis manuel 01/18/2020 Gender Male Visit Number [id number] Race Unknown Room Numb er 1114 Number Date of 1965 Referring Physician Efrain Post MD Age 54 year(s) Sonograph er Abed Uli Interpret ing Stefanie Brannon MD Physician Procedure Type of [...] T CI: 0.91 l/min/m^2 Performing Organization Address City/[facility] Cent[facility] Phone Number [facility] ECHO HEARTLAB [facility] CPACS Troponin I (01/18/2020 8:39 AM SPA MANAGER)Only the most recent of2 resultswithin the time period is included. Troponin I 0.10 (H) 0.00 - 0.03 ng/mL [facility] Specimen Blood Narrative Performed At Troponin I (TnI) levels must be interpreted [facility] in the context of the presenting [...] acidosis, acute neurological disease, and persistent tachyarrhythmia. Second Rigger ID - CASS Navarro Performing Organization Address City/[facility] Cent[facility]ode Phone Number [facility] MEDICAL [address] [place] [address] CENTER XR chest 1 view portable / bedside (01/18/2020 3:27 AM SPA MANAGER) Specimen Narrative Performed At FINAL REPORT GE [...] External Ris In - 01/18/2020 6:54 AM SPA MANAGER FINAL REPORT RAD, CHEST, 1 VIEW, NON [...] 6:51:28 Performing Organization Address City/State/Zipcode Phone Number [facility] Respiratory Panel [facility] (01/18/2020 1:29 AM SPA MANAGER) Human Metapneumovirus Not detected Not detected, [facility] [employer] [facility] ER Rhinovirus Not detected Not detected, [facility] [employer] [facility] Influenza A Not detected Not detected, [facility] [employer] [facility] ER INFLUENZA A (NO SUBTYPE) [facility] ER Influenza A subtype H1 [facility] ER Influenza A Subtype H3 [facility] ER Influenza A Subtype H1-2009 [facility] ER Influenza B Not detected Not detected, [facility] [employer] [facility] ER Respiratory Syncytial Virus Not detected Not detected, [employer] [facility] Parainfluenza Virus 1 Not detected Not detected, [facility] [employer] [facility] Parainfluenza Virus 2 Not detected Not detected, [facility] [employer] [facility] Parainfluenza virus 3 Not detected Not detected, [facility] [employer] [facility] Parainfluenza Virus 4 Not detected Not detected, [facility] [employer] [facility] Adenovirus Not detected Not detected, [facility] [employer] [facility] Coronavirus 229E Not detected Not detected, [facility] [employer] [facility] Coronavirus HKU1 Not detected Not detected, [facility] Coronavirus NL63 Not detected Not detected, [facility] [employer] [facility] Coronavirus OC43 Not detected Not detected, [facility] [employer] [facility] Bordetella Pertussis Not detected Not detected, [facility] [employer] [facility] Chlamydophila Pneumoniae Not detected Not detected, [employer] [facility] Mycoplasma Pneumoniae Not detected Not detected, [facility] [employer] [facility] Specimen Nasopharyngeal Narrative Performed At Other viruses and bacteria not targeted by [facility] this PCR panel cannot be excluded; therefore clinical correlation and follow up of serology, culture results, and other molecular studies is required. The results are not intended to be used as the sole means for clinical diagnosis or patient management decisions. This sample was tested at the [facility] Molecular Diagnostics Laboratory using the [employer] FilmArray Respiratory Panel. It is FDA cleared and has been verified and approved by the [facility] Molecular Diagnostics Laboratory for clinical use on nasopharyngeal swab specimens. The performance of the FilmArray RP has not been established in individuals who received influenza vaccine.Recent administration of a nasal influenza vaccine may cause false positive results for Influenza A and/or Influenza B. Performing Organization Address City/State/Zipcode Phone Number [facility] [address] [place] [address] CENTER ECG 12 lead (01/18/2020 12:51 AM SPA MANAGER) Specimen Narrative Performed At Ventricular Rate 94 BPM GE MUSE Atrial Rate 94 BPM P-R Interval 232 ms QRS Duration 120 ms Q-T Interval 392 ms QTC Calculation(Bazett) 490 ms P Archbald 55 degrees R Archbald -81 degrees T Archbald 87 degrees Sinus rhythm with 1st degree A-V block Left anterior fascicular block Right bundle branch block Possible Anterolateral infarct , age und etermined Prolonged QT Abnormal ECG No previous ECGs available Confirmed by MD WEEKS YOCHAI ([id number]) on 01/18/2020 1:51:43 PM Procedure Note Interface, External Ris In - 01/18/2020 1:51 PM SPA MANAGER Ventricular Rate 94 BPM Atrial Rate 94 BPM P-R Interval 232 ms QRS Duration 120 ms Q-T Interval 392 ms QTC Calculation(Bazett) 490 ms P Archbald 55 degrees R Archbald -81 degrees T Archbald 87 degrees Sinus rhythm with 1st degree A-V block Left anterior fascicular block Right bundle branch block Possible Anterolateral infarct , age und etermined Prolonged QT Abnormal ECG No previous ECGs available Confirmed by MD WEEKS YOCHAI ([id number]) on 01/18/2020 1:51:43 PM Performing Organization Address City/[facility] Phone Number GE MUSE PT/aPTT (01/17/2020 11:24 PM SPA MANAGER) Protime 14.9 (H) 11.9 - 14.2 seconds [facility] INR 1.2 <=5.9 [facility] PTT 31.5 22.5 - 36.0 seconds [facility] Specimen Blood Narrative Performed At Effective 04/21/2019: PT Reference Range [facility] Change New: 11.9-14.2Previous: 11.7-14.7 RECOMMENDED COUMADIN/WARFARIN INR THERAPY RANGES STANDARD DOSE: 2.0-3.0Includes: PROPHYLAXIS for venous thrombosis, systemic embolization; TREATMENT for venous thrombosis and/or pulmonary embolus. HIGH RISK: Target INR is 2.5-3.5 for patients wiht mechanical heart valves. Performing Organization Address City/[facility] Centercode Phone Number [place] [phone] [place] [address] CENTER CBC with platelet count + automated diff (01/17/2020 11:24 PM SPA MANAGER) WBC 11.4 (H) 3.5 - 10.5 K/L [facility] RBC 4.24 (L) 4.63 - 6.08 M/L [facility] Hemoglobin 13.4 (L) 13.7 - 17.5 GM/DL [facility] Hematocrit 38.9 (L) 40.1 - 51.0 % [facility] MCV 91.7 79.0 - 92.2 fL [facility] MCH 31.6 25.7 - 32.2 pg [facility] MCHC 34.4 32.3 - 36.5 GM/DL [facility] [facility] RDW 12.9 11.6 - 14.4 % [facility] Platelets 248 150 - 450 K/CU MM [facility] MPV 9.9 9.4 - 12.4 fL [facility] nRBC 0 0 - 0 /100 WBC [facility] % Neutros 52 % [facility] % Lymph[facility] 38 % [facility] % Monos 6 % [facility] % Eos 2 % [facility] % Baso 1 % [facility] # Neutros 5.93 (H) 1.78 - 5.38 K/L [facility] # Lymphs 4.35 (H) 1.32 - 3.57 K/L [facility] # Monos 0.67 0.30 - 0.82 K/L [facility] # Eos 0.27 0.04 - 0.54 K/L [facility] # Baso 0.12 (H) 0.01 - 0.08 K/L [facility] Immature Granulocytes-Relative 0 0 - 1 % C [facility] Specimen Blood Performing Organization Address City/State/Zipcode Phone Number [address] [address] CENTER Phosphorus (01/17/2020 11:24 PM SPA MANAGER) Phosphorus 4.7Comment: Specimen slightly 2.3 - 4.7 mg/dL [facility] Spec[facility] Blood Narrative Performed At Second Rigger ID - BS [facility] Performing Organization Address City/[facility]/Zipcode Phone Number [address] [address] [place] Hemoglobin A1c (01/17/2020 11:24 PM SPA MANAGER) Hemoglobin A1C 13.6 (H) 4.3 - 6.1 % [facility] Specimen Blood Performing Organization Address City/[facility]/Zipcode Phone Number [address] [address] [place] Lipid panel (01/17/2020 11:24 PM SPA MANAGER) Triglycerides 82Comment: Specimen slightly mg/dL [facility] Cholesterol 118Comment: Specimen slightly mg/dL [facility] HDL 42 mg/dL [facility] LDL Calculated 60 mg/dL [facility] Specimen Blood Narrative Performed At Triglyceride Reference Range: [facility] Low Risk <150 [id number] High Risk 200-499 Very High Risk>=500 Cholesterol Reference Range: Low Risk <200 [id number] High Risk>240 HDL Cholesterol Reference Range: Low Risk >=60 High Risk <40 LDL Cholesterol Reference Range: Optimal<100 Near [id number] [id number] Very High >=190 Second Rigger ID - BS Performing Organization Address City/State/Zipcode Phone Number [facility] [employer] [facility] [address] [place] [address] CENTER after 08/03/2019 Insurance Payer Benefit Plan / Group Subscriber ID Type Phone A ddress MEDICARE MEDICARE A B xxxxxxxxxxx Medicare Advance Directives For more information, please contact:[employer] [id number] [place], [place] [phone] Code Status Date Activated Date Inactivated Comments Full Code 01/17/2020 11:45 PM 01/21/2020 3:46 PM This code status was determined by: Patient
--- OUTSIDE RECORDS SUMMARY | 2020-08-03 11:50 | XMS REPORT | Continuity of Care Document ---
:1965 Author Organization [facility] t Address [address] [place] [address] Care Team Providers Name Role Phone Kaleb Alexander MD Primary Care Physician Addy MEZA Attending Clinician Meño Zuniga MD Attending Clinician MEÑO ZUNIGA Attending Clinician Unavailable MEÑO UZNIGA Admitting Clinician Unavailable Payers Payer Name Policy Policy Number Effective Expiration Source Type Date Date MEDICAREMEDICARE A xxxxxxxxxxx [facility] [place] [facility] Problems Condition Condition Condition Status Onset Resolution Last Treating Co mments Source Name Details Category Date Date Treatment Clinician Date Essential Essential Disease Active [facility] hypertensi hypertensi 2-25 Corin kes - on on 00:00: Medical 00 [place] Hyperlipid Hyperlipid Disease Active [facility] em[facility] emia 2-25 [facility]: Medical 00 [place] Type 2 Type 2 Disease Active 2020-[address] [facility] diabetes diabetes 2-25 [facility] - mellitus mellitus 00:00: Medica l 00 [place] Acute Acute Disease Active 2020-[address] [facility] kidney kidney 2-25 [facility] - injury injury 00:00: Medical 00 [place] Acute on Acute on Disease Active 2020- [facility] chronic chronic [facility]-24 [facility] - systolic systolic 00:00: Medica l heart heart 00 Center failure, failure, NYHA class NYHA class 4 4 Allergies, Adverse Reactions, Alerts Allergy Allergy Status Severity Reaction(s) Onset Inactive Treating Comm ents Source Name Type Date Date Clinician Sulfa DA Active U [facility] ([facility]ulf[facility] 06[facility]30 [place] [facility] 00 [facility] ics) Center rifampin DA Active U 2020-0 [facility] 06-[facility]: [address] Rifampin Propensi Active Severe Other [facility] [...] Date Quantity Comments Source Sex Assigned At [facility] Cigarettes smoked 2020-01-21 2020-01-21 [facility] - current (pack per 00:00:00 00:00:00 [facility] Center day) - Reported Smoking Status Start Date Stop Date Source Current every day smoker 2020-01-21 00:00:00 [facility] Medications Ordered Filled Start Stop [...] before 100 unit/mL meals. (70-30) injection insulin 2020-0 Yes 60{each Q.5D 60 [address] [facility] syringe-nee 2-28 } Miscellane Corin kes - dle U-100 00:00: ous route Med ical 1/2 mL 28 00 2 (two) Center gauge x times 1/2" Syrg daily. carvedilol 2020-0 Yes 3.125mg Take [address] (COREG) 2-28 tablet [facility] - 3.125 MG 00:00: (3.125 mg Medi glen tablet 00 total) by Center mouth 2 (two) times daily with breakfast and dinner. hydrALAZINE 2020-0 Yes 10mg [id number] Take [address] (APRESOLINE 2-28 [id number] tablet (10 [facility] - ) 10 MG 00:00: 3D mg total) Medic al tablet 00 by mouth 3 Center (three) times daily. bumetanide 2020-0 Yes 2mg Q.5D Take 1 [facility] (BUMEX) 2 2-28 tablet (2 [facility] - MG tablet 00:00: mg total) Med ical 00 by mouth 2 Center (two) times daily. nitroglycer 2020-0 2020- No [facility] in 2-24 -28 [facility] - (NITROSTAT) 00:00: 00:00 Medic al 0.4 MG SL 00 :00 Center tablet HYDROcodone 2020-0 2020- No TAKE [address] -acetaminop 01-13 TABLET BY Corin stevenson (NORCO 00:00: 00:00 MOUTH FOUR Medical 10-325) 00 :00 TIMES Center 10-325 mg DAILY per tablet NEEDED FOR PAIN. CAUTION SEDATION. furosemide 2019- No [facility] (LASIX) 40 01-12 [facility] - MG tablet 00:00: 00:00 Medical 00 :00 [place] spironolact 2019- No [facility] one 01-12 [facility] - (ALDACTONE) 00:00: 00:00 Medic al 25 MG 00 :00 Center tablet carvedilol 2019- No [facility] (COREG) 01-12 [facility] - 3.125 MG 00:00: 00:00 Medical tablet 00 :00 [place] pantoprazol 2019- No [facility] e 01-12 [facility] - (PROTONIX) 00:00: 00:00 Medica l 40 MG 00 :00 [place] tablet clopidogrel 2019- No 75mg Take [address] (PLAVIX) 75 12-11 by mouth. Corin kes - mg tablet 00:00: 00:00 Medical 00 :00 [place] zolpidem 2019- No 10mg Take [address] (AMBIEN) 10 02-19 by mouth. Corin kes - mg tablet 00:00: 00:00 Medical 00 :00 [place] gabapentin 2019- No 900mg Q.[id number] Take [address] (NEURONTIN) 12-02 [id number] mg by Sharad - 300 MG 00:00: 00:00 3D mouth 3 Medical capsule 00 :00 (three) Center times daily. albuterol Yes 2{puff} Inhale [address] HFA 9-30 puffs by Sharad - (VENTOLIN 00:00: mouth via Med ical HFA) 90 00 inhaler. [place] mcg/actuati on inhaler aspirin 81 2019- No 81mg Take [address] MG EC 08-05 by mouth. [facility] - tablet 00:00: 00:00 Medical 00 :00 [place] Vital Signs Vital Name Observation Time Observation Value Comments Source Systolic blood 2020-01-21 09:15:00 104 mm[Hg] [facility] Diastolic blood 2020-01-21 09:15:00 65 mm[Hg] [facility] Heart rate 2020-01-21 09:15:00 84 /min [facility] Body temperature 2020-01-21 07:00:00 36.44 Melinda [facility] Respiratory rate 2020-01-21 07:00:00 18 /min [facility] Oxygen saturation in 2020-01-21 07:00:00 98 /min [facility] Arterial blood by Medical Ce nter Pulse oximetry Body weight Measured 2020-01-20 05:58:00 114.805 kg [facility] BMI 2020-01-20 05:58:00 33.39 kg/m2 [facility] Body height 2020-01-18 00:00:00 185.4 cm [facility] Procedures Procedure Date / Time Performing Clinician Source Performed SARS-COV2/RT-PCR ([facility] & 2020-06-23 15:35:00 [facility] REF LABS) [facility] REPORT OF PROCEDURE - 2020-01-24 11:11:15 Provider, Default [facility] ENDOSCOPY SCAN [facility] RHYTHM STRIP - SCAN 2020-01-24 11:11:13 Provider, Default [facility] POCT-GLUCOSE METER 2020-01-21 08:24:[address] [facility] BASIC METABOLIC PANEL (7) 2020-01-21 06:33:00 Alexus Swanson V[facility] CBC (HEMOGRAM ONLY) 2020-01-21 06:33:00 Alexus Swanson [facility] MAGNESIUM 2020-01-21 06:33:00 Alexus Swanson V[facility] B-TYPE NATRIURETIC FACTOR 2020-01-21 06:33:00 Sejal Zuniga CH, I [facility] (BNP) [facility] POCT-GLUCOSE METER 2020-01-21 00:05:[address] [facility] PERIPHERAL VASCULAR REPORT 2020-01-20 21:24:23 Provider, Default [facility] POCT-GLUCOSE METER 2020-01-20 [facility] 2020-01-20 12:35:00 [facility] POCT-GLUCOSE METER 2020-01-20 07:16:00 [facility] BASIC METABOLIC PANEL (7) 2020-01-20 04:59:00 Alexus Swanson [facility] CBC (HEMOGRAM ONLY) 2020-01-20 04:59:00 Alexus Swanson [facility] MAGNESIUM 2020-01-20 04:59:00 [facility] POCT-GLU[facility]SE METER 2020-01-19 22:29:00 [facility] POCT-GLUCOSE METER 2020-01-19 16:46:[facility] POCT-[facility]SE METER 2020-01-19 12:58:00 [facility] POCT-GLUCOSE METER 2020-01-19 07:27:00 [facility] B-TYPE NATRIURETIC FACTOR 2020-01-19 03:46:00 Zuniga [facility] (BNP) [facility] BASIC METABOLIC PANEL (7) 2020-01-19 03:46:00 Alexus Swanson [facility] CBC (HEMOGRAM ONLY) 2020-01-19 03:46:00 Alexus Swanson [facility] MAGNESIUM 2020-01-19 03:46:00 Alexus Swanson [facility] TSH/FREE T4 IF INDICATED 2020-01-19 03:46:00 Alexus Swanson [facility] POCT-GLUCOSE METER 2020-01-18 22:58:00 [facility] ECHOCARD[facility] REPORT - 2020-01-18 21:22:33 Provider, Default [facility] I [facility] VENOUS DOPPLER LEGS 2020-01-18 18:23:00 Alexus Swanson V[facility] POCT-GLUCOSE METER 2020-01-18 16:59:00 [facility] POCT-GLUCOSE METER 2020-01-18 13:19:00 [facility] POCT-GLUCOSE METER 2020-01-18 12:44:00 [facility] 2D ECHO W/ DOPPLER 2020-01-18 12:07:07 [facility] POCT-GLUCOSE METER 2020-01-18 09:31:00 [facility] TROPONIN I 2020-01-18 08:39:00 [facility] MAGNESIUM 2020-01-18 08:39:[address] [facility] XR CHEST 1 VIEW 2020-01-18 03:27:00 Octavio Mosquera [facility] PORTABLE/BEDSIDE [facility] RESPIRATORY PANEL [facility] 2020-01-18 01:29:00 Eveline [facility] ECG 12-LEAD 2020-01-18 00:51:16 Unknown, Hl7 Doctor [facility] BASIC METABOLIC PANEL (7) 2020-01-17 23:24:00 Eveline [facility] MAGNESIUM 2020-01-17 23:24:00 Eveline [facility] B-TYPE NATRIURETIC FACTOR 2020-01-17 23:24:00 Eveline [facility] (BNP) [facility] PHOSPHORUS 2020-01-17 23:24:00 Eveline [facility] PT/APTT 2020-01-17 [facility]-01-17 [facility]EM[facility]C 2020-01-17 23:24[facility]IP[facility] 2020-01-17 [facility] W/PLT COUNT & AUTO 2020-01-17 23:24:00 [facility] Encounters Start End Encounter Admission Attending Care Care Encounter Source Date/Time Date/Time Type Type Clinicians Facility Department ID 2020-04-06 2020-04-06 Telephone Addy [facility] [id number] 00:00:00 00:00:00 Lacie Lyles [id number] [place] [id number] Alex [id number] [address] Building Results Test Description Test Time Test Comments Results Result Comments Source GLUCOSE BEDSIDE TESTING 2020-07-03 07:54:00 Test Item Value Reference Range Interpretation Comme nts GLUCOSE BEDSIDE TESTING (test code = GLUBED) 174 MG/DL 60-99 H GLUCOSE BEDSIDE [id number] 07:45:00 Test Item Value Reference Range Interpretation Comments GLUCOSE BEDSIDE TESTING (test code 257 MG/DL 60-99 H = GLUBED) - XR CHEST [id number] 11:26:00 Patient Name: CHAZ PADILLA Unit No: [id number] EXAMS: CPT CODE: [id number] XR CHEST 1V 94025 - XR CHEST 1V INDICATION:Pneumonia, CHF LOCATION: T18 No prior studies for comparison purposes The heart is enlarged with AICD leads right atrium and right ventricle. Mild interstitial edema. No focal lung consolidation. Trace effusions not excluded. Bony thorax unremarkable. IMPRESSION: Cardiomegaly with mild edema. Trace effusions not excluded. at 1126 Reported and signed by: Jackson Bob MD CC: Stefany Sadler MD Technologist: Kaden Aguero (RT) (R) Transc rpt Date/Tm/Trnsp: 07/01/2020 (1126) Galina Orig Print D/T: S: 07/01/2020 (1129) [facility] NAME: CHAZ PADILLA [id number] [address] PHYS: [place] [address] : 1965 AGE: 54 [id number] LOC: [id number] PHONE #: [phone] EXAM DATE: 07/01/2020 STATUS: ADM IN FAX #: [phone] RADIOLOGY NO: PAGE 1 Signed ReportBASIC METABOLIC [id number] 09:57:00 Test Item Value Reference Range Interpretation Comments SODIUM (test code = 135 MMOL/L 137-145 L NA) POTASSIUM (test code = 3.8 MMOL/L 3.5-5.1 N K) CHLORIDE (test code = 97 MMOL/L 98-107 L CL) CARBON DIOXIDE (test 27 MMOL/L 22-30 N code = CO2) ANION GAP (test code = 15 MMOL/L 14-24 N GAP) GLUCOSE (test code = 143 MG/DL 74-106 H GLU) BLOOD UREA NITROGEN 21 MG/DL 9-20 H (test code = BUN) GLOMERULAR FILTRATION > 60 Report ing units: RATE (test code = GFR) ml/mi n/1.73 m2 (Modified MDRD Formula)Referen ce Range: > or = 6 0 ml/min/1.73 m2 CREATININE (test code 0.80 MG/DL 0.66-1.25 N = CREAT) CALCIUM (test code = 9.8 MG/DL 8.4-10.2 N CA) HEPATIC FUNCTION [id number] 09:57:00 Test Item Value Reference Range Interpretation Comments TOTAL PROTEIN (test code = PROT) 7.4 G/DL 6.2-7.6 N ALBUMIN (test code = ALB) 3.8 G/DL 3.5-5.0 N BILIRUBIN TOTAL (test code = BILT) 1.0 MG/DL 0.2-1.3 N BILIRUBIN DIRECT (test code = 0.0 MG/DL 0.0-0.3 N BILD) SGOT/AST (test code = AST) 24 UNITS/L 17-59 N SGPT/ALT (test code = ALT) 21 UNITS/L <50 ALKALINE PHOSPHATASE (test code = 89 UNITS/L 38-126 N ALKP) [id number] 09:57:00 Test Item Value Reference Range Interpretation Comments MAGNESIUM (test code = MAG) 1.2 MG/DL 1.6-2.3 L VITAMIN [id number] 09:57:00 Test Item Value Reference Range Interpretation Comments VITAMIN B12 (test code = VITB12) 590 pg/mL 239-931 N FOLIC ACID BY [id number] 09:57:00 Test Item Value Reference Range Interpretation Comments FOLIC ACID BY MARCO A 11.6 ng/mL REFERENCE VALUES: (test code = FOLR) NORMAL: 2.76 - >20 ng/ML DEFICIENT : 1.04 - 2.79 ng/ML FE W/TOTAL IRON BINDING CAP.2020-07-01 09:55:00 Test Item Value Reference Range Interpretation Comments SERUM IRON (test code = IRON) 74 MCG/DL 49-181 N TOTAL IRON BINDING CAPACITY (test 344 MCG/DL 261-462 N code = TIBC) IRON SATURATION (test code = 22 % 12-57 N FESAT) FE W/TOTAL IRON BINDING CAP.2020-07-01 09:39:00 Test Item Value Reference Range Interpretation Comments SERUM IRON (test code = IRON) 74 MCG/DL 49-181 N TOTAL IRON BINDING CAPACITY (test MCG/DL 261-462 code = TIBC) IRON SATURATION (test code = FESAT) % 12-57 BASIC METABOLIC [id number] 09:39:00 Test Item Value Reference Range Interpretation Comments SODIUM (test code = 135 MMOL/L 137-145 L NA) POTASSIUM (test code = 3.8 MMOL/L 3.5-5.1 N K) CHLORIDE (test code = 97 MMOL/L 98-107 L CL) CARBON DIOXIDE (test 27 MMOL/L 22-30 N code = CO2) ANION GAP (test code = 15 MMOL/L 14-24 N GAP) GLUCOSE (test code = 143 MG/DL 74-106 H GLU) BLOOD UREA NITROGEN 21 MG/DL 9-20 H (test code = BUN) GLOMERULAR FILTRATION > 60 Report ing units: RATE (test code = GFR) ml/mi n/1.73 m2 (Modified MDRD Formula)Referen ce Range: > or = 6 0 ml/min/1.73 m2 CREATININE (test code 0.80 MG/DL 0.66-1.25 N = CREAT) CALCIUM (test code = 9.8 MG/DL 8.4-10.2 N CA) HEPATIC FUNCTION [id number] 09:39:00 Test Item Value Reference Range Interpretation Comments TOTAL PROTEIN (test code = PROT) 7.4 G/DL 6.2-7.6 N ALBUMIN (test code = ALB) 3.8 G/DL 3.5-5.0 N BILIRUBIN TOTAL (test code = BILT) 1.0 MG/DL 0.2-1.3 N BILIRUBIN DIRECT (test code = 0.0 MG/DL 0.0-0.3 N BILD) SGOT/AST (test code = AST) 24 UNITS/L 17-59 N SGPT/ALT (test code = ALT) 21 UNITS/L <50 ALKALINE PHOSPHATASE (test code = 89 UNITS/L 38-126 N ALKP) [id number] 09:39:00 Test Item Value Reference Range Interpretation Comments MAGNESIUM (test code = MAG) 1.2 MG/DL 1.6-2.3 L VITAMIN [id number] 09:39:00 Test Item Value Reference Range Interpretation Comments VITAMIN B12 (test code = VITB12) 590 pg/mL 239-931 N FOLIC ACID BY [id number] 09:39:00 Test Item Value Reference Range Interpretation Comments FOLIC ACID BY MARCO A (test code = FOLR) ng/mL BASIC METABOLIC [id number] 08:51:00 Test Item Value Reference Range Interpretation Comments SODIUM (test code = 135 MMOL/L 137-145 L NA) POTASSIUM (test code = 3.8 MMOL/L 3.5-5.1 N K) CHLORIDE (test code = 97 MMOL/L 98-107 L CL) CARBON DIOXIDE (test 27 MMOL/L 22-30 N code = CO2) ANION GAP (test code = 15 MMOL/L 14-24 N GAP) GLUCOSE (test code = 143 MG/DL 74-106 H GLU) BLOOD UREA NITROGEN 21 MG/DL 9-20 H (test code = BUN) GLOMERULAR FILTRATION > 60 Report ing units: RATE (test code = GFR) ml/mi n/1.73 m2 (Modified MDRD Formula)Referen ce Range: > or = 6 0 ml/min/1.73 m2 CREATININE (test code 0.80 MG/DL 0.66-1.25 N = CREAT) CALCIUM (test code = 9.8 MG/DL 8.4-10.2 N CA) HEPATIC FUNCTION [id number] 08:51:00 Test Item Value Reference Range Interpretation Comments TOTAL PROTEIN (test code = PROT) 7.4 G/DL 6.2-7.6 N ALBUMIN (test code = ALB) 3.8 G/DL 3.5-5.0 N BILIRUBIN TOTAL (test code = BILT) 1.0 MG/DL 0.2-1.3 N BILIRUBIN DIRECT (test code = 0.0 MG/DL 0.0-0.3 N BILD) SGOT/AST (test code = AST) 24 UNITS/L 17-59 N SGPT/ALT (test code = ALT) 21 UNITS/L <50 ALKALINE PHOSPHATASE (test code = 89 UNITS/L 38-126 N ALKP) [id number] 08:51:00 Test Item Value Reference Range Interpretation Comments MAGNESIUM (test code = MAG) 1.2 MG/DL 1.6-2.3 L VITAMIN [id number] 08:51:00 Test Item Value Reference Range Interpretation Comments VITAMIN B12 (test code = VITB12) pg/mL 239-931 FOLIC ACID BY [id number] 08:51:00 Test Item Value Reference Range Interpretation Comments FOLIC ACID BY MARCO A (test code = FOLR) ng/mL BASIC METABOLIC [id number] 08:48:00 Test Item Value Reference Range Interpretation Comments SODIUM (test code = NA) 135 MMOL/L 137-145 L POTASSIUM (test code = K) 3.8 MMOL/L 3.5-5.1 N CHLORIDE (test code = CL) 97 MMOL/L 98-107 L CARBON DIOXIDE (test code = CO2) MMOL/L 22-30 GLUCOSE (test code = GLU) MG/DL 74-106 BLOOD UREA NITROGEN (test code = MG/DL 9-20 BUN) GLOMERULAR FILTRATION RATE (test code = GFR) CREATININE (test code = CREAT) MG/DL 0.66-1.25 CALCIUM (test code = CA) MG/DL 8.7-9.7 HEPATIC FUNCTION [id number] 08:48:00 Test Item Value Reference Range Interpretation Comments TOTAL PROTEIN (test code = PROT) G/DL 6.2-7.6 ALBUMIN (test code = ALB) 3.8 G/DL 3.5-5.0 N BILIRUBIN TOTAL (test code = BILT) MG/DL 0.2-1.3 BILIRUBIN DIRECT (test code = BILD) MG/DL 0.0-0.3 SGOT/AST (test code = AST) UNITS/L 15-37 SGPT/ALT (test code = ALT) UNITS/L <50 ALKALINE PHOSPHATASE (test code = UNITS/L 38-126 ALKP) [id number] 08:48:00 Test Item Value Reference Range Interpretation Comments MAGNESIUM (test code = MAG) MG/DL 1.6-2.3 VITAMIN [id number] 08:48:00 Test Item Value Reference Range Interpretation Comments VITAMIN B12 (test code = VITB12) pg/mL 239-931 FOLIC ACID BY [id number] 08:48:00 Test Item Value Reference Range Interpretation Comments FOLIC ACID BY MARCO A (test code = FOLR) ng/mL BASIC METABOLIC [id number] 08:47:00 Test Item Value Reference Range Interpretation Comments SODIUM (test code = NA) MMOL/L 137-145 POTASSIUM (test code = K) MMOL/L 3.5-5.1 CHLORIDE (test code = CL) 97 MMOL/L 98-107 L CARBON DIOXIDE (test code = CO2) MMOL/L 22-30 GLUCOSE (test code = GLU) MG/DL 74-106 BLOOD UREA NITROGEN (test code = MG/DL 9-20 BUN) GLOMERULAR FILTRATION RATE (test code = GFR) CREATININE (test code = CREAT) MG/DL 0.66-1.25 CALCIUM (test code = CA) MG/DL 8.7-9.7 HEPATIC FUNCTION [id number] 08:47:00 Test Item Value Reference Range Interpretation Comments TOTAL PROTEIN (test code = PROT) G/DL 6.2-7.6 ALBUMIN (test code = ALB) 3.8 G/DL 3.5-5.0 N BILIRUBIN TOTAL (test code = BILT) MG/DL 0.2-1.3 BILIRUBIN DIRECT (test code = BILD) MG/DL 0.0-0.3 SGOT/AST (test code = AST) UNITS/L 15-37 SGPT/ALT (test code = ALT) UNITS/L <50 ALKALINE PHOSPHATASE (test code = UNITS/L 38-126 ALKP) [id number] 08:47:00 Test Item Value Reference Range Interpretation Comments MAGNESIUM (test code = MAG) MG/DL 1.6-2.3 VITAMIN [id number] 08:47:00 Test Item Value Reference Range Interpretation Comments VITAMIN B12 (test code = VITB12) pg/mL 239-931 FOLIC ACID BY [id number] 08:47:00 Test Item Value Reference Range Interpretation Comments FOLIC ACID BY MARCO A (test code = FOLR) ng/mL CBC W/AUTO [id number] 08:40:00 Test Item Value Reference Range Interpretation Comments WHITE BLOOD CELL (test code = 9.0 K/MM3 3.8-9.8 N WBC) RED BLOOD CELL (test code = 4.09 M/MM3 3.95-5.67 N RBC) HEMOGLOBIN (test code = HGB) 12.7 G/DL 12.4-16.7 N HEMATOCRIT (test code = HCT) 39.8 % 35.9-49.5 N MEAN CELL VOLUME (test code = 97 fL 81.7-96.1 H MCV) MEAN CELL HGB (test code = MCH) 31.1 pg 27.6-33.2 N MEAN CELL HGB CONCETRATION 31.9 % 32.9-35.5 L (test code = MCHC) RED CELL DISTRIBUTION WIDTH 16.1 % 12.1-15.2 H (test code = RDW) PLATELET COUNT (test code = 229 K/MM3 129-368 N PLT) MEAN PLATELET VOLUME (test code 10.2 fl 7.4-10.4 N = MPV) NEUTROPHIL % (test code = NT%) 53.9 % 43-75 N IMMATURE GRANULOCYTE % (test 0.8 % 0.0-2.0 N code = IG%) LYMPHOCYTE % (test code = LY%) 29.6 % 14-44 N MONOCYTE % (test code = MO%) 9.6 % 4-13 N EOSINOPHIL % (test code = EO%) 5.1 % 0-6 N BASOPHIL % (test code = BA%) 1.0 % 0-2 N NUCLEATED RBC % (test code = 0.0 % 0-1.0 N NRBC%) NEUTROPHIL # (test code = NT#) 4.86 K/mm3 2.0-7.6 N IMMATURE GRANULOCYTE # (test 0.07 x10 3/uL 0-0.03 H code = IG#) LYMPHOCYTE # (test code = LY#) 2.66 K/mm3 1.0-3.8 N MONOCYTE # (test code = MO#) 0.86 K/mm3 0.1-0.8 H EOSINOPHIL # (test code = EO#) 0.46 K/mm3 0.0-0.2 H BASOPHIL # (test code = BA#) 0.09 K/mm3 0.0-0.2 N NUCLEATED RBC # (test code = 0.00 K/mm3 0.0-0.1 N NRBC#) LIPID PROFILE (CORONARY RISK)2020-07-01 08:21:00 Test Item Value Reference Range Interpretation Comments TRIGLYCERIDES (test 81 MG/DL TRIGLYCE RIDES code = TRIG) REFERENCE RANGE:Normal: < 150 mg/dLBorderline High: 150-199 mg/dLHi gh: 200-499 mg/dLVe ry High: >=500 mg/ dL CHOLESTEROL (test code 84 MG/DL <200 = CHOL) HDL CHOLESTEROL (test 31 MG/DL 40-59 L code = HDL) LIPOPROTEIN LDL (test 35 MG/DL 0-99 N code = LDL) OPTIMAL........ .<100 mg/dLNEAR OPTIMAL/ABOVE OPTIMAL........ .100-12 9 mg/dL BORDERLINE HIGH.........13 0-159 mg/dL HIGH.........16 0-189 mg/dL VERY HIGH...... ...>/= 190 mg/dL GLUCOSE BEDSIDE [id number] 08:16:00 Test Item Value Reference Range Interpretation Comments GLUCOSE BEDSIDE TESTING (test code 156 MG/DL 60-99 H = GLUBED) LIPID PROFILE (CORONARY RISK)2020-07-01 08:11:00 Test Item Value Reference Range Interpretation Comments TRIGLYCERIDES (test 81 MG/DL TRIGLYCE RIDES code = TRIG) REFERENCE RANGE:Normal: < 150 mg/dLBorderline High: 150-199 mg/dLHi gh: 200-499 mg/dLVe ry High: >=500 mg/ dL CHOLESTEROL (test code 84 MG/DL <200 = CHOL) HDL CHOLESTEROL (test 31 MG/DL 40-59 L code = HDL) LIPOPROTEIN LDL (test MG/DL 0-99 code = LDL) GLUCOSE BEDSIDE [id number] 02:09:00 Test Item Value Reference Range Interpretation Comments GLUCOSE BEDSIDE TESTING (test code 162 MG/DL 60-99 H = GLUBED) GLUCOSE BEDSIDE [id number] 16:12:00 Test Item Value Reference Range Interpretation Comments GLUCOSE BEDSIDE TESTING (test code 236 MG/DL 60-99 H = GLUBED) [id number] 15:24:00 Test Item Value Reference Range Interpretation Comments TROPONIN-I (test code = TROPI) 0.035 NG/ML 0.012-0.033 H B-TYPE NATRIURETIC [id number] 09:02:00 Test Item Value Reference Range Interpretation Comments B-TYPE NATRIURETIC PEPTIDE (test 2004.0 PG/ML 0-100 H code = BNP) GLUCOSE BEDSIDE [id number] 09:00:00 Test Item Value Reference Range Interpretation Comments GLUCOSE BEDSIDE TESTING (test code 151 MG/DL 60-99 H = GLUBED) BASIC METABOLIC [id number] 08:38:00 Test Item Value Reference Range Interpretation Comments SODIUM (test code = 134 MMOL/L 137-145 L NA) POTASSIUM (test code = 3.8 MMOL/L 3.5-5.1 N K) CHLORIDE (test code = 97 MMOL/L 98-107 L CL) CARBON DIOXIDE (test 27 MMOL/L 22-30 N code = CO2) GLUCOSE (test code = 164 MG/DL 74-106 H GLU) BLOOD UREA NITROGEN 20 MG/DL 9-20 N (test code = BUN) GLOMERULAR FILTRATION > 60 Report ing units: RATE (test code = GFR) ml/mi n/1.73 m2 (Modified MDRD Formula)Referen ce Range: > or = 6 0 ml/min/1.73 m2 CREATININE (test code 0.80 MG/DL 0.66-1.25 N = CREAT) CALCIUM (test code = 9.5 MG/DL 8.4-10.2 N CA) THYROID STIMULATING [id number] 08:38:00 Test Item Value Reference Range Interpretation Comments THYROID STIMULATING 0.831 MIU/L 0.465-4.68 N Please b e aware that HORMONE (test code = bias re sults for TSH TSH) may occur forpa tient who are taking Biotin suppleme nts. GLYCOSYLATED HEMOGLOBIN [id number] 08:33:00 Test Item Value Reference Range Interpretation Comments GLYCOSYLATED 8.7 % 4.8-5.9 H Any condition t hat HEMOGLOBIN (HA1C) shortens e rythocyte (test code = survival or dec reasesmean GLYHGB) erythrocyte age (e.g., recovery from a cute blood loss,hemolytic anemia) will falsely lo wer HGBA1c resultsregardle ss of the method used. H GBA1c results from [facility] HbSS, HbCC, and HbSc must be interpreted with cautiongiven th e pathological pr ocesses, including anemia,increase d red cell turnover, trans fusion requirements, thatadversely i mpact HGBA1c as a mar ker of long-term glycemiccontrol . Alternative for ms of testing such as fructosaminesho uld be considered for these patients. MEAN BLOOD GLUCOSE 203 MG/DL 70-110 H (test code = MBG) LIPOPROTEIN LDL [id number] 08:16:00 Test Item Value Reference Range Interpretation Comments LIPOPROTEIN LDL DIRECT < 30 mg/dL 100-129 L ===== (test code = LDLDIR) ======= ====R eference Interv al: mg/dL mmol/L-------- ----- ----- ----- ------Optimal < 100 <2.6Near/above optimal 100-129 2.6-3.3Borderli ne High 130-159 3.4-4.1High 160-189 4.1-4.9Very Hig h >=190 >=4.9========= This LDL result is a direct measurement.=== ===== = [id number] 08:16:00 Test Item Value Reference Range Interpretation Comments TROPONIN-I (test code = TROPI) 0.054 NG/ML 0.012-0.033 H BASIC METABOLIC [id number] 08:07:00 Test Item Value Reference Range Interpretation Comments SODIUM (test code = 134 MMOL/L 137-145 L NA) POTASSIUM (test code = 3.8 MMOL/L 3.5-5.1 N K) CHLORIDE (test code = 97 MMOL/L 98-107 L CL) CARBON DIOXIDE (test 27 MMOL/L 22-30 N code = CO2) GLUCOSE (test code = 164 MG/DL 74-106 H GLU) BLOOD UREA NITROGEN 20 MG/DL 9-20 N (test code = BUN) GLOMERULAR FILTRATION > 60 Report ing units: RATE (test code = GFR) ml/mi n/1.73 m2 (Modified MDRD Formula)Referen ce Range: > or = 6 0 ml/min/1.73 m2 CREATININE (test code 0.80 MG/DL 0.66-1.25 N = CREAT) CALCIUM (test code = 9.5 MG/DL 8.4-10.2 N CA) THYROID STIMULATING [id number] 08:07:00 Test Item Value Reference Range Interpretation Comments THYROID STIMULATING HORMONE (test code MIU/L 0.465-4.68 = TSH) BASIC METABOLIC [id number] 08:04:00 Test Item Value Reference Range Interpretation Comments SODIUM (test code = NA) 134 MMOL/L 137-145 L POTASSIUM (test code = K) MMOL/L 3.5-5.1 CHLORIDE (test code = CL) 97 MMOL/L 98-107 L CARBON DIOXIDE (test code = CO2) MMOL/L 22-30 GLUCOSE (test code = GLU) MG/DL 74-106 BLOOD UREA NITROGEN (test code = MG/DL 9-20 BUN) GLOMERULAR FILTRATION RATE (test code = GFR) CREATININE (test code = CREAT) MG/DL 0.66-1.25 CALCIUM (test code = CA) MG/DL 8.7-9.7 THYROID STIMULATING [id number] 08:04:00 Test Item Value Reference Range Interpretation Comments THYROID STIMULATING HORMONE (test code MIU/L 0.465-4.68 = TSH) BASIC METABOLIC [id number] 08:04:00 Test Item Value Reference Range Interpretation Comments SODIUM (test code = NA) 134 MMOL/L 137-145 L POTASSIUM (test code = K) 3.8 MMOL/L 3.5-5.1 N CHLORIDE (test code = CL) 97 MMOL/L 98-107 L CARBON DIOXIDE (test code = CO2) MMOL/L 22-30 GLUCOSE (test code = GLU) MG/DL 74-106 BLOOD UREA NITROGEN (test code = MG/DL 9-20 BUN) GLOMERULAR FILTRATION RATE (test code = GFR) CREATININE (test code = CREAT) MG/DL 0.66-1.25 CALCIUM (test code = CA) MG/DL 8.7-9.7 THYROID STIMULATING [id number] 08:04:00 Test Item Value Reference Range Interpretation Comments THYROID STIMULATING HORMONE (test code MIU/L 0.465-4.68 = TSH) CBC W/AUTO [id number] 08:03:00 Test Item Value Reference Range Interpretation Comments WHITE BLOOD CELL (test code = 12.8 K/MM3 3.8-9.8 H WBC) RED BLOOD CELL (test code = 4.05 M/MM3 3.95-5.67 N RBC) HEMOGLOBIN (test code = HGB) 12.5 G/DL 12.4-16.7 N HEMATOCRIT (test code = HCT) 39.4 % 35.9-49.5 N MEAN CELL VOLUME (test code = 97 fL 81.7-96.1 H MCV) MEAN CELL HGB (test code = MCH) 30.9 pg 27.6-33.2 N MEAN CELL HGB CONCETRATION 31.7 % 32.9-35.5 L (test code = MCHC) RED CELL DISTRIBUTION WIDTH 16.4 % 12.1-15.2 H (test code = RDW) PLATELET COUNT (test code = 236 K/MM3 129-368 N PLT) MEAN PLATELET VOLUME (test code 10.0 fl 7.4-10.4 N = MPV) NEUTROPHIL % (test code = NT%) 66.9 % 43-75 N IMMATURE GRANULOCYTE % (test 1.0 % 0.0-2.0 N code = IG%) LYMPHOCYTE % (test code = LY%) 20.8 % 14-44 N MONOCYTE % (test code = MO%) 7.6 % 4-13 N EOSINOPHIL % (test code = EO%) 3.1 % 0-6 N BASOPHIL % (test code = BA%) 0.6 % 0-2 N NUCLEATED RBC % (test code = 0.0 % 0-1.0 N NRBC%) NEUTROPHIL # (test code = NT#) 8.58 K/mm3 2.0-7.6 H IMMATURE GRANULOCYTE # (test 0.13 x10 3/uL 0-0.03 H code = IG#) LYMPHOCYTE # (test code = LY#) 2.67 K/mm3 1.0-3.8 N MONOCYTE # (test code = MO#) 0.97 K/mm3 0.1-0.8 H EOSINOPHIL # (test code = EO#) 0.40 K/mm3 0.0-0.2 H BASOPHIL # (test code = BA#) 0.08 K/mm3 0.0-0.2 N NUCLEATED RBC # (test code = 0.00 K/mm3 0.0-0.1 N NRBC#) LIPOPROTEIN LDL [id number] 07:42:00 Test Item Value Reference Range Interpretation Comments LIPOPROTEIN LDL DIRECT (test code = mg/dL 100-129 LDLDIR) [id number] 07:42:00 Test Item Value Reference Range Interpretation Comments TROPONIN-I (test code = TROPI) 0.054 NG/ML 0.012-0.033 H SARS-CoV2/RT-PCR ([facility])2020-06-24 08:18:00 Test Item Value Reference Range Interpretation Comments SARS-COV2/RT-PCR Negative Not Detected, (test code = Negative, See 95985-2) external report for linked test SARS-COV-2 [facility] PERFORMING [facility] (test code = 33216-9) ROMÁN (test code = Negative result for this ROMÁN) test determines that SARS-CoV-2 RNA was not present in the specimen above the Limit of Detection (LOD). However, Negative results do not preclude SARS-CoV-2 infection and should not be used as the sole basis for treatment or patient management decisions. Negative results must be combined with clinical observations, patient history, and epidemiological information. A false negative result may occur if a specimen is improperly collected, transported or handled. A false negative result should be considered if patient's recent exposures or clinical presentation indicate that COVID-19 (SARS-CoV-2) is likely and diagnostic tests for other causes of illness are negative. Re-testing should be considered in cases of suspected [...] Food and Drug Administration (FDA) cleared or approved. This is a modified version of an approved [...] of the Act. Fact Sheet for Healthcare Providers:https://www.[employer]/sites/default/f mayco/product/documents/F act_Sheet_HC_Providers_L qar_OQHP-PnX-9.pdf Fact Sheet for Healthcare Patients:https://www.[employer]/sites/default/fi les/product/documents/Fa ct_Sheet_Patients_Lyra_S ARS-CoV-2.pdf Performing Laboratory:[facility] [place] [address] [facility] ([facility])2020-06-24 08:18:00 Test Item Value Reference Range Interpretation Comments SARS-COV2/RT-PCR (test Negative Not Detected, Negative, code = 5570433) See external report for linked test SARS-COV-2 PERFORMING LAB [facility] (test code = 5177448) Negative result for this test determines that SARS-CoV-2 RNA was not present in the specimen above the Limit of Detection (LOD). However, Negative results do not preclude SARS-CoV-2 infection and should not be used as the sole basis for treatment or patient management decisions. Negative results mustbe combined with clinical observations, patient history, and epidemiological information. A false negative result may occur if a specimen is improperly collected, transported or handled. A false negative result should be considered if patient's recent exposures or clinical presentation indicate that COVID-19 (SARS-CoV-2) is likely and diagnostic tests for other causes of illness are negative. Re-testing should be considered in cases of suspected false negatives.The limit of detection for this assay is 800 copies/mL.This SARS CoV-2 test is a real-time RT-PCR test intended for the qualitative detection of nucleic acid from SARS-CoV-2 in a nasopharyngeal swab specimen collected from individuals suspected of COVID-19 by their healthcare provider.This test has not been Food and Drug Administration (FDA) cleared or approved. This is a modified version of an approved [...] is revoked under Section 564(g) of the Act.Fact Sheet for Healthcare Providers:https://www.[employer]/sites/default/files/product/documents/Fact_Shee e_RR_Lrayixsno_Frkl_EURE-FuM-7.pdfFact Sheet for Healthcare Patients:https://www.[employer]/sites/default/files/product/ documents/Kqve_Suqzs_Cbscrqas_Vair_JGQI-AjO-9.pdfPerforming Laboratory:[place] [address], [place] [address]YEQ-Zeywaad meter 2020-01-21 08:36:00 Test Item Value Reference Range Interpretation Comments POC-Glucose Meter (test 164 mg/dL 70-110 H : TE STED AT [facility] code = 1538) [address] [place] [address], 770 30: Superintendent Compressor Stations/Techni dc ID = [id number] for MCNEAL JONAH ANNITA Lab Interpretation (test Abnormal code = 59831-9) [facility] [id number] 08:36:00 Test Item Value Reference Range Interpretation Comments POC-GLUCOSE METER 164 mg/dL 70-110 H : TESTED A T [facility] 6720 (BEAKER) (test code = ANURAG Saldivar [facility], 1538) [address]: Superintendent Compressor Stations/Techni dc ID = [id number] for JONAH MCNEAL Basic Metabolic [id number] 07:28:00 Test Item Value Reference Range Interpretation Comments Sodium (test code = 139 meq/L 206-291 7045-2) Potassium (test code 3.8 meq/L 3.5-5.1 = 2823-3) Chloride (test code = 96 meq/L 98-107 L 2075-0) CO2 (test code = 33 meq/L 22-29 H 2028-9) BUN (test code = 23 mg/dL 7-21 H 3094-0) Creatinine (test code 0.92 mg/dL 0.57-1.25 = 2160-0) Glucose (test code = 143 mg/dL 70-105 H 2345-7) Calcium (test code = 10.4 mg/dL 8.4-10.2 H 73928-0) EGFR (test code = [place] [address]-5) CLINICAL DATA T O CALCULATE ESTIMATED GFR. ROMÁN (test code = ROMÁN) Superintendent [employer] Stations ID Salvador Felton Lab Interpretation Abnormal (test code = 73350-5) [facility] METABOLIC [id number] 07:28:00 Test Item Value Reference Range Interpretation [...] 1092) DATA TO CALCULA TE ESTIMATED GFR. Superintendent [employer] Stations RAMON REAL [id number] 07:27:00 Test Item Value Reference Range Interpretation Comments Magnesium (test code = 1.3 mg/dL 1.6-2.6 L 00743-8) ROMÁN (test code = ROMÁN) Superintendent [employer] Stations ID - ADDIE Felton Lab Interpretation (test Abnormal code = 59621-9) [facility]2020-[facility]-28 07:27:00 Test Item Value Reference Range Interpretation Comments MAGNESIUM (BEAKER) (test code = 1.3 mg/dL 1.6-2.6 L 627) Superintendent Compressor Stations ID Salvador REAL LB-type Natriuretic Factor (BNP)2020-01-21 07:17:00 Test Item Value Reference Range Interpretation Comments BNP (test code = 30889-8) 1285 pg/mL 0-100 H ROMÁN (test code = ROMÁN) Superintendent Compressor Stations ID Salvador REAL L Lab Interpretation (test Abnormal code = 62509-1) [facility] NATRIURETIC FACTOR (BNP)2020-01-21 07:17:00 Test Item Value Reference Range Interpretation Comments B-TYPE NATRIURETIC PEPTIDE 1285 pg/mL 0-100 H (BEAKER) (test code = 700) Superintendent Compressor Stations ID Salvador REAL LCBC (Hemogram only)2020-01-21 06:56:00 [...] 450 K/CU MM MPV (test code = 17550-6) 9.7 fL 9.4-12.4 nRBC (test code = 413) 0 0- 0 /100 WBC Lab Interpretation (test code = Normal 20062-0) [facility]2020-01-21 06:56:00 Test Item Value Reference [...] 0-0 (BEAKER) (test code = 413) POCT-GLUCOSE [id number] 00:24:00 Test Item Value Reference Range Interpretation Comments POC-GLUCOSE METER 177 mg/dL 70-110 H : TESTED A T [facility] 6720 ([facility]) (test code = [facility], 153) [address]: Superintendent Compressor Stations/Techni dc ID = [id number] for WE NZY, EPEKA POCT-GLUCOSE [id number] 16:47:00 Test Item Value Reference Range Interpretation Comments POC-GLUCOSE METER 124 mg/dL 70-110 H : TESTED A T [facility] 6720 (BEAKER) (test code = [facility], 153) [address]: Superintendent Compressor Stations/Techni dc ID = [id number] for KIZHAKEKATTIL, KASEY POCT-GLUCOSE [id number] 12:47:00 Test Item Value Reference Range Interpretation Comments POC-GLUCOSE METER 137 mg/dL 70-110 H : TESTED A T [facility] 6720 ([facility]) (test code = [facility], 153) [address]: Superintendent Compressor Stations/Techni dc ID = [id number] for KIZHAKEKATTIL, KASEY Venous doppler legs [id number] 09:35:07Ejection FractionSLE ECHO HEARTLAB MKCKROGERON CPACSRight Impression1. There is no deep venous [...] of Study 01/18/2020 Age 54 Visit Number [id number] Gender Male Accession Number [id number] Date of 1965 Referring Alexus Swanson, Room Number 1114 Physician Store Consultant Amie Sanz, Interpreting Ariana Cabrera T Physician ProcedureType of Study: Veins: Lower [...] in cm/s ; Diameters are measured in [facility] POCT-GLUCOSE [id number] 09:32:00 Test Item Value Reference Range Interpretation Comments POC-GLUCOSE METER 174 mg/dL 70-110 H : TESTED A T [facility] 6720 (BEAKER) (test code = [place], 1538) [address]: Superintendent Compressor Stations/Techni dc ID = [id number] for KASEY GOLDEN BASIC METABOLIC [id number] 06:36:00 Test Item Value Reference Range Interpretation [...] 1092) DATA TO CALCULA TE ESTIMATED GFR. Superintendent [employer] Stations ID - ADDIE [id number] 06:30:00 Test Item Value Reference Range Interpretation Comments MAGNESIUM (BEAKER) (test code = 1.1 mg/dL 1.6-2.6 L 627) Superintendent Compressor Stations ID Salvador REAL LCBC (HEMOGRAM ONLY)2020-01-20 06:05:00 [...] 0-0 (BEAKER) (test code = 413) POCT-GLUCOSE [id number] 22:41:00 Test Item Value Reference Range Interpretation Comments POC-GLUCOSE METER 219 mg/dL 70-110 H : TESTED A T [facility] 6720 (BEAKER) (test code = [facility], 153) [address]: Superintendent Compressor Stations/Techni dc ID = [id number] for ALBINO WESLEY MARII POCT-GLUCOSE [id number] 16:58:00 Test Item Value Reference Range Interpretation Comments POC-GLUCOSE METER 158 mg/dL 70-110 H : TESTED A T [facility] 6720 (BEAKER) (test code = [facility], 153) [address]: Superintendent Compressor Stations/Techni dc ID = [id number] for CA NIVIADO, JUNDELL POCT-GLUCOSE [id number] 13:12:00 Test Item Value Reference Range Interpretation Comments POC-GLUCOSE METER 195 mg/dL 70-110 H : TESTED A T [facility] 6720 (BEAKER) (test code = [facility], 153) [address]: Superintendent Compressor Stations/Techni dc ID = [id number] for KASEY GOLDEN POCT-GLUCOSE [id number] 07:39:00 Test Item Value Reference Range Interpretation Comments POC-GLUCOSE METER 237 mg/dL 70-110 H : [facility] (test code = [place], 1538) [address]: Superintendent Compressor Stations/Techni dc ID = [id number] for KASEY GOLDEN BASIC METABOLIC [id number] 06:16:00 Test Item Value Reference Range Interpretation [...] 1092) DATA TO CALCULA TE ESTIMATED GFR. Superintendent Compressor Stations ID - NOLBERTO [id number] 06:14:00 Test Item Value Reference Range Interpretation Comments MAGNESIUM (BEAKER) (test code = 1.2 mg/dL 1.6-2.6 L 627) Superintendent Compressor Stations ID - NOLBERTO MTSH/Free T4 If [id number] 06:13:00 Test Item Value Reference Range Interpretation Comments TSH (test code = 98227-8) 0.71 0.35- 4.94 uIU/mL ROMÁN (test code = ROMÁN) Superintendent Compressor Stations ID - DB Lab Interpretation (test Normal code = 56930-5) [facility] HospitalTSH[facility]FREE T4 IF [id number] 06:13:00 Test Item Value Reference Range Interpretation Comments THYROID STIMULATING HORMONE 0.71 uIU/mL 0.35-4.94 (BEAKER) (test code = 772) Superintendent Compressor Stations ID - DBB-TYPE NATRIURETIC FACTOR (BNP)2020-01-19 05:43:00 Test Item Value Reference Range Interpretation Comments B-TYPE NATRIURETIC PEPTIDE 2649 pg/mL 0-100 H (BEAKER) (test code = 700) Superintendent Compressor Stations ID - NOLBERTO MCBC (HEMOGRAM ONLY)2020-01-19 05:41:00 [...] 0-0 (BEAKER) (test code = 413) POCT-GLUCOSE [id number] 23:12:00 Test Item Value Reference Range Interpretation Comments POC-GLUCOSE METER 265 mg/dL 70-110 H : TESTED A T [facility] 6720 (BEAKER) (test code = [facility] [employer] [facility], 1538) [address]: Superintendent Compressor Stations/Techni dc ID = [id number] for ALBINO WESLEY MARII POCT-GLUCOSE [id number] 17:14:00 Test Item Value Reference Range Interpretation Comments POC-GLUCOSE METER 250 mg/dL 70-110 H : TESTED A T [facility] 6720 (BEAKER) (test code = [facility] [employer] [facility], 1538) 97[address]: Superintendent Compressor Stations/Techni dc ID = [id number] for ZABRINA WARD 2D Echo W/Doppler(CW/PW/Color)2020-01-18 14:22:21Ejection FractionSLEH ECHO HEARTLAB OBDULIO CPACSInterface, External Ris In - 01/18/2020 2:22 PM C STTransthoracic Echocardiography Report (TTE) Demographics Patient Name CHAZ PADILLA Date of Study 01/18/2020 Gender Male Visit Number [id number] Race Unknown Room Number 1114 Number Date of 1965 Referring Physician Efrain Post MD Age 54 year(s) Store Consultant Abed Uli Interpreting Stefanie Brannon MD Physician [...] LVOT CO: 2.21 l/min LVOT CI: 0.91 l/min/m^2CAlta Bates Summit Medical CenterECG 12 [id number] 13:51:46Interface, External Ris In - 01/18/2020 1:51 PM CSTVentricular Rate 94 BPMAtrial Rate 94 BPMP-R Interval 232 msQRS Duration 120 msQ-T Interval 392 msQTC Calculation(Bazett) 490 msP Madison 55 degreesR Madison -81 degreesT Madison 87 degreesSinus rhythm with 1st degree A-V blockLeft anterior fascicular blockRight bundle branch blockPossible Anterolateral infarct , age undeterminedProlonged QTAbnormal ECGNo previous ECGs availableConfirmed by MD DESI, CHELA ([id number]) on 01/18/2020 1:51:43 [facility] 2020-01-18 13:31:00 Test Item Value Reference Range Interpretation Comments POC-GLUCOSE METER 306 mg/dL 70-110 H : Notified RN/: (ROBBY) (test code = TESTED AT [facility] 1950 0317) [facility], [address]: Superintendent Compressor Stations/Techni dc ID = [id number] for ZABRINA WARD [id number] 13:06:00 Test Item Value Reference Range Interpretation Comments MAGNESIUM (ROBBY) 1.6 mg/dL 1.6-2.6 Specimen slightly (test code = 627) hemolyzed Superintendent Compressor Stations ID - CASS MPOCT-GLUCOSE [id number] 12:56:00 Test Item Value Reference Range Interpretation Comments POC-GLUCOSE METER 267 mg/dL 70-110 H : TESTED Rita Metzger [facility] 6720 (BEAKER) (test code = ANURAG Saldivar [place], 1538) [address]: Superintendent Compressor Stations/Techni dc ID = [id number] for CHANDA LEÓN Respiratory Panel [id number] 10:14:00 Test Item Value Reference Range Interpretation Comments Human Metapneumovirus Not detected Not detected, (test code = 41809-5) Equivocal Rhinovirus (test code = Not detected Not detected, 66819-1) Equivocal INFLUENZA A (NO Not detected Not detected, SUBTYPE) (test code = Equivocal 12337-3) Influenza A subtype H1 (test code = 24500-7) Influenza A Subtype H3 (test code = 57506-5) Influenza A Subtype H1-2009 (test code = 26657-3) Influenza B (test code Not detected Not detected, = 12597-0) Equivocal Respiratory Syncytial Not detected Not detected, Virus (test code = Equivocal 74686-8) Parainfluenza Virus 1 Not detected Not detected, (test code = 75088-8) Equivocal Parainfluenza Virus 2 Not detected Not detected, (test code = 69910-3) Equivocal Parainfluenza virus 3 Not detected Not detected, (test code = 01355-4) Equivocal Parainfluenza Virus 4 Not detected Not detected, (test code = 66799-5) Equivocal Adenovirus (test code = Not detected Not detected, 69683-1) Equivocal Coronavirus 229E (test Not detected Not detected, code = 00002-6) Equivocal Coronavirus HKU1 (test Not detected Not detected, code = 10544-1) Equivocal Coronavirus NL63 (test Not detected Not detected, code = 77051-0) Equivocal Coronavirus OC43 (test Not detected Not detected, code = 78431-3) Equivocal Bordetella Pertussis Not detected Not detected, (test code = 16522-2) Equivocal Chlamydophila Not detected Not detected, Pneumoniae (test code = Equivocal 56174-9) Mycoplasma Pneumoniae Not detected Not detected, (test code = 21481-7) Equivocal ROMÁN (test code = ROMÁN) Other viruses and bacteria not targeted by this PCR panel cannot be excluded; therefore clinical correlation and follow up of serology, culture results, and other molecular studies is required. The results are not intended to be used as the sole means for clinical diagnosis or patient management decisions. This sample was tested at the [facility] using the VineArray Respiratory Panel. It is FDA cleared and has been verified and approved by the [facility] for clinical use on nasopharyngeal swab specimens. The performance of the FilmArray RP has not been established in individuals who received influenza vaccine. Recent administration of a nasal influenza vaccine may cause false positive results for Influenza A and/orInfluenza B. [facility] [id number] 10:14:00 Test Item Value Reference Range Interpretation [...] decisions. This sample was tested at the [facility] using the [employer] FilmArray Respiratory Panel. It is FDA cleared and has been verified and approved by the [facility] for clinical use on nasopharyngeal swab specimens.The performance of the FilmArrayRP has not been established in individuals who received influenza vaccine. Recent administration ofa nasal influenza vaccine may cause false positive results for Influenza A and/orInfluenza B.POCT-GLUCOSE [id number] 09:44:00 Test Item Value Reference Range Interpretation Comments POC-GLUCOSE METER 281 mg/dL 70-110 H : TESTED A T [facility] 6720 (BEAKER) (test code = LENROME Saldivar [facility], 1538) [address]: Superintendent Compressor Stations/Techni dc ID = [id number] for CHANDA LEÓN Troponin [id number] 09:35:00 Test Item Value Reference Range Interpretation Comments Troponin I (test code = 0.10 ng/mL 0-0.03 H 08832-3) ROMÁN (test code = ROMÁN) Troponin I [...] acidosis, acute neurological disease, and persistent tachyarrhythmia.Opera kelsea NAVARRO - CASS Navarro Lab Interpretation (test Abnormal code = 18273-1) [facility] HospitalTRFLORY [id number] 09:35:00 Test Item Value Reference Range Interpretation [...] failure, acidosis, acute neurological disease, and persistent tachyarrhythmia.Superintendent Compressor Stations ID - CASS emoglobin A1c 2020-01-18 08:46:00 Test Item Value Reference Range Interpretation Comments Hemoglobin A1C (test code = 4548-4) 13.6 % 4.3-6.1 H Lab Interpretation (test code = Abnormal 29636-4) [facility] HospitalHEMOGLOBIN [id number] 08:46:00 Test Item Value Reference Range Interpretation Comments HEMOGLOBIN A1C (BEAKER) (test code = 13.6 % 4.3-6.1 H 368) RAD, CHEST, 1 VIEW, NON [id number] 06:51:00Reason for exam:->CHFShould this be performed at [...] contours. Additional findings: None. Signed: Christa Coley MDReport Verified Date/Time: 01/18/2020 06:51:28 XR chest 1 view portable / [id number] 06:51:00 Interface, External Ris In - 01/18/2020 [...] contours. Additional findings: None. Signed: Christa Coley MDReport Verified Date/Time: 01/18/2020 06:51:28 [facility] TROPONIN [id number] 00:24:00 Test Item Value Reference Range Interpretation Comments TROPONIN I (BEAKER) (test code = 0.20 ng/mL 0.00-0.03 397) Troponin I (TnI) levels must be [...] failure, acidosis, acute neurological disease, and persistent tachyarrhythmia.Superintendent Compressor Stations ID - BSB-TYPE NATRIURETIC FACTOR (BNP)2020-01-18 00:15:00 Test Item Value Reference Range Interpretation Comments B-TYPE NATRIURETIC PEPTIDE 2998 pg/mL 0-100 H (BEAKER) (test code = 700) Superintendent Compressor Stations ID - BSBASIC METABOLIC [id number] 00:14:00 Test Item Value Reference Range Interpretation [...] 1092) DATA TO CALCULA TE ESTIMATED GFR. Superintendent Compressor Stations ID - BSLipid [id number] 00:07:00 Test Item Value Reference Range Interpretation Comments Triglycerides (test 82 mg/dL Specimen code = 2571-8) slightly hemolyzed Cholesterol (test 118 mg/dL Specimen code = 2093-3) slightly hemolyzed HDL (test code = 42 mg/dL 5-9) LDL Calculated (test 60 mg/dL code = 74083-7) ROMÁN (test code = Triglyceride ROMÁN) Reference Range: Low Risk <150 Borderline 150-199 High Risk 200-499 Very High Risk >=500 Cholesterol Reference Range: Low Risk <200 Borderline 200-239 High Risk >240 HDL Cholesterol Reference Range: Low Risk >=60 High Risk <40 LDL Cholesterol Reference Range: Optimal <100 Near Optimal 100-129 Borderline 130-159 High 160-189 Very High >=190 [employer] Stations ID - BS [facility]00 Test Item Value Reference Range Interpretation Comments Phosphorus (test code 4.7 mg/dL 2.3-4.7 Specim en = 2777-1) slightly hemolyzed ROMÁN (test code = ROMÁN) [employer] Stations ID - BS Lab Interpretation Normal (test code = 13326-2) [facility] 00:07:00 Test Item Value Reference Range Interpretation Comments MAGNESIUM (BEAKER) 1.1 mg/dL 1.6-2.6 L Specimen slightly (test code = 627) hemolyzed [employer] Stations ID - [id number] 00:07:00 Test Item Value Reference Range Interpretation Comments PHOSPHORUS (BEAKER) 4.7 mg/dL 2.3-4.7 Specimen slightly (test code = 604) hemolyzed [employer] Stations ID - BSLIPID [id number] 00:07:00 Test Item Value Reference Range Interpretation [...] Borderline 130-159 High 160-189 Very High >=190 Superintendent [employer] Stations ID - [id number] 23:50:00 Test Item Value Reference Range Interpretation Comments Protime (test code = 14.9 11.9- 14.2 H 5902-2) seconds INR (test code = 1.2 <=5.9 6301-6) PTT (test code = 31.5 22.5- 36.0 92854-0) seconds ROMÁN (test code = ROMÁN) Effective 04/21/2019: PT Reference Range ChangeNew: 11.9-14.2 Previous: 11.7-14.7 RECOMMENDED COUMADIN/WARFARIN INR THERAPY RANGESSTANDARD DOSE: 2.0-3.0 Includes: PROPHYLAXIS for venous thrombosis, systemic embolization; TREATMENT for venous thrombosis and/or pulmonary embolus.HIGH RISK: Target INR is 2.5-3.5 for patients wiht mechanical heart valves. Lab Interpretation Abnormal (test code = 63799-5) [id number][id number] 23:50:00 Test Item Value Reference Range Interpretation [...] heart valves.CBC with platelet count + automated [id number] 23:42:00 Test Item Value Reference Range Interpretation [...] 450 K/CU MM MPV (test code = 77201-7) 9.9 fL 9.4-12.4 nRBC (test code = [...] 2801) Lab Interpretation (test code = Abnormal 76206-7) [facility]/PLT [facility] & AUTO [id number] 23:42:00 Test Item Value Reference Range Interpretation [...] 417) IMMATURE GRANULOCYTES-RELATIVE 0 % 0-1 PERCENT (ROBBY) (test code = 2801)
[2020-08-03] MEDS ORDERED: ALBUTEROL 2.5 MG/3 ML NEB SOL ONE (12:32)
[2020-08-03 12:41] LABS: Absolute Lymphocytes (CBC) 1.3 K/uL (0.7-4.9); Basophils % 0.5 % (0-1.3); Hematocrit 35.6 % (39.6-49.0); Lymphocytes % 16.9 % (15.3-44.8); MPV 8.5 fL (7.6-11.3); RBC Red Blood Cell Count 3.81 M/uL (4.33-5.43)
[2020-08-03 12:42] LABS: Protime INR 1.41
[2020-08-03 12:56] LABS: Albumin 2.6 g/dL (3.4-5.0); Bilirubin Direct 0.6 mg/dL (0-0.2); Potassium 3.4 mmol/L (3.5-5.1); Protein, Total 6.2 g/dL (6.4-8.2); Troponin (Emerg Dept Use Only) 0.05 ng/mL (0.0-0.045)
[2020-08-03 12:57] LABS: Magnesium 1.2 mg/dL (1.8-2.4)
--- NOTE | 2020-08-03 13:49 | RAD REPORT ---
EXAM DESCRIPTION: RAD - Chest Single View - 08/03/2020 1:31 pm CLINICAL HISTORY: DYSPNEA COMPARISON: Two view chest June 25 TECHNIQUE: AP portable chest image was obtained 08/03/2020 1:31 pm . FINDINGS: No focal consolidation. Interstitial opacification is diffusely prominent throughout the l ana lizama. Cardiomegaly is present with vascular engorgement. Left-sided defibrillator in place. No measurable pleural effusion and no pneumothorax. No acute bony abnormality seen. No acute aortic find ings suspected. IMPRESSION: Moderate CHF/ volume overload pattern.
[2020-08-03] MEDS ORDERED: FUROSEMIDE 40 MG/4 ML VIAL ONE (14:00)
--- NOTE | 2020-08-03 14:09 | EDPHYS ---
Physician Documentation [facility] Name: Nikos Corona Age: 54 yrs Sex: Male : 1965 Arrival Date: 08/03/2020 Time: 11:49 Bed 16 Private MD: ED Physician Faizan Lopez HPI: 08/03 13:54 This 54 yrs old Male presents to ER via Wheelchair with complaints of Leg jr8 Swelling, Testicular Swelling, Abdominal Distention, Shortness Of Breath. 13:54 Pt presents for bilateral leg pain/swelling, shortness of breath, chest pain, abdominal jr8 distention, and testicular swelling progressing over the past 3 weeks. He states that he feels he is "full of fluid" and that his legs may be getting infected due to clear drainage noticed at night. Denies fever, cough, AMS, or any other symptoms at this time.. Historical: - Allergies: 12:03 Rifampin; ca1 12:03 Sulfa (Sulfonamide Antibiotics); ca1 - Home Meds: 16:59 Zolpidem Tartrate Oral [Active]; Albuterol Inhl [Active]; atorvastatin Oral 1 tab once bp daily [Active]; mag oxide 40mg 1 tab PO BID [Active]; Bumetanide Oral [Active]; carvedilol Oral [Active]; clopidogrel 75 mg Oral tab 1 tab once daily [Active]; Hydralazine Oral [Active]; Lasix 40 mg 1 tab PO DAILY (EVENING) [Active]; pantoprazole Oral [Active]; Potassium Chloride Oral [Active]; spironolactone 25 mg Oral tab 1 tab once daily [Active]; - PMHx: 12:03 Anxiety; ADD/ADHD; CAD; CHF; Diabetes - NIDDM; DVT; Hyperlipidemia; Hypertension; ca1 Myocardial infarction; neuropathy; osteomyelitis; PTSD; PVD; - PSHx: 12:03 Cholecystectomy; feet surgery; femur surgery; ca1 - Immunization history:: Adult Immunizations up to date. - Social history:: Smoking status: Patient reports the use of cigarette tobacco products, smokes one pack cigarettes per day. ROS: 14:01 Eyes: Negative for injury, pain, redness, and discharge, ENT: Negative for injury, jr8 pain, and discharge, Neck: Negative for injury, pain, and swelling, Abdomen/GI: Negative for abdominal pain, nausea, vomiting, diarrhea, and constipation, Back: Negative for injury and pain, MS/Extremity: Negative for injury and deformity, Skin: Negative for injury, rash, and discoloration, Neuro: Negative for headache, weakness, numbness, tingling, and seizure. 14:01 Cardiovascular: Positive for chest pain, edema, orthopnea. 14:01 Respiratory: Positive for dyspnea on exertion, orthopnea, shortness of breath. Exam: 14:01 Eyes: Pupils equal round and reactive to light, extra-ocular motions intact. Lids and jr8 lashes normal. Conjunctiva and sclera are non-icteric and not injected. Cornea within normal limits. Periorbital areas with no swelling, redness, or edema. ENT: Nares patent. No nasal discharge, no septal abnormalities noted. Tympanic membranes are normal and external auditory canals are clear. Oropharynx with no redness, swelling, or masses, exudates, or evidence of obstruction, uvula midline. Mucous membranes moist. Neck: Trachea midline, no thyromegaly or masses palpated, and no cervical lymphadenopathy. Supple, full range of motion without nuchal rigidity, or vertebral point tenderness. No Meningismus. Abdomen/GI: Soft, non-tender, with normal bowel sounds. No distension or tympany. No guarding or rebound. No evidence of tenderness throughout. Back: No spinal tenderness. No costovertebral tenderness. Full range of motion. Skin: Warm, dry with normal turgor. Normal color with no rashes, no lesions, and no evidence of cellulitis. MS/ Extremity: Pulses equal, no cyanosis. Neurovascular intact. Full, normal range of motion. Neuro: Awake and alert, GCS 15, oriented to person, place, time, and situation. Cranial nerves II-XII grossly intact. Motor strength 5/5 in all extremities. Sensory grossly intact. Cerebellar exam normal. Normal gait. 14:01 Cardiovascular: Rate: normal, Rhythm: regular, Pulses: Pulses are 2+ in right radial artery and left radial artery. Heart sounds: normal, normal S1and S2, no S3 or S4, no murmur, no rub, no gallop, Edema: 4+ edema to level of waist, pubic area, left upper thigh, left lower thigh, left knee, left midcalf, left ankle, left foot, right upper thigh, right lower thigh, right knee, right midcalf, right ankle and right foot. 14:01 Respiratory: the patient does not display signs of respiratory distress, Respirations: tachypnea, that is mild, Breath sounds: rales, that are mild, are located in both bases, wheezing: expiratory that is mild, is heard diffusely. Vital Signs: 12:00 BP 99 / 68; Pulse 92; Resp 24; Temp 97.6(TE); Pulse Ox 92% on R/A; Weight 127.01 kg ca1 (R); Height 6 ft. 1 in. (185.42 cm) (R); 12:27 BP 98 / 71; Pulse 88; Resp 16; Pulse Ox 96% ; bp 13:28 BP 104 / 74; Pulse 82; Resp 16; Pulse Ox 97% ; bp 14:01 BP 105 / 52; Pulse 85; Resp 16; Pulse Ox 97% ; bp 15:00 BP 101 / 71; Pulse 86; Resp 16; Pulse Ox 93% ; bp 15:56 BP 92 / 71; Pulse 79; Resp 16; Pulse Ox 92% ; bp 16:51 BP 90 / 63; Pulse 72; Resp 16; Pulse Ox 100% ; bp 12:00 Body Mass Index 36.94 (127.01 kg, 185.42 cm) ca1 MDM: 12:07 Patient medically screened. jr8 14:05 Data reviewed: vital signs, nurses notes, lab test result(s), EKG, radiologic studies, jr8 plain films. Data interpreted: Pulse oximetry: on room air is 92 %. Interpretation: hypoxia. Counseling: I had a detailed discussion with the patient and/or guardian regarding: the historical points, exam findings, and any diagnostic results supporting the discharge/admit diagnosis, lab results, radiology results, the need for further work-up and treatment in the hospital. Physician consultation: Mateo Barrios was called at 14:07, was contacted at 14:07, regarding admission, to the telemetry unit. patient's condition, and will see patient in ED. 08/03 12:12 Order name: Basic Metabolic Panel; Complete Time: 08/03 12:12 Order name: CBC with Diff; Complete Time: 08/03 12:12 Order name: LFT's; Complete Time: 08/03 12:12 Order name: Magnesium; Complete Time: 13:08/03 12:12 Order name: NT PRO-BNP; Complete Time: 13:08/03 12:12 Order name: PT-INR; Complete Time: 13:08/03 12:12 Order name: Troponin (emerg Dept Use Only); Complete Time: 13:08/03 12:12 Order name: XRAY Chest (1 view); Complete Time: 13:54 08/03 12:12 Order name: EKG; Complete Time: 12:08/03 12:12 Order name: Cardiac monitoring; Complete Time: 12:15 08/03 12:12 Order name: EKG - Nurse/Tech; Complete Time: :08/03 12:12 Order name: IV Saline Lock; Complete Time: :08/03 12:12 Order name: Labs collected and sent; Complete Time: :08/03 12:12 Order name: O2 Per Protocol; Complete Time: 12:08/03 12:12 Order name: O2 Sat Monitoring; Complete Time: 12: Administered Medications: 12:15 Drug: Albuterol 2.5 mg Route: Inhalation; bp 12:45 Drug: Albuterol 2.5 mg Route: Inhalation; bp 13:15 Drug: Albuterol 2.5 mg Route: Inhalation; bp 13:30 Drug: Lasix 40 mg Route: IVP; Site: left antecubital; bp 14:09 Follow up: Response: No adverse reaction bp Disposition: 17:51 Co-signature as Attending Physician, Faizan Lopez MD. rn Disposition: 08/03/20 14:08 Hospitalization ordered by Mateo Barrios for Inpatient Admission. Preliminary diagnosis are Anasarca, Acute combined systolic (congestive) and diastolic (congestive) heart failure. - Bed requested for Telemetry/MedSurg (Inpatient). - Status is Inpatient Admission. bp - Condition is Fair. - Problem is new. - Symptoms have improved. Signatures: Dispatcher [employer] EDMS Chrissy Lazcano Roman, MD MD rn Kam Jones PA PA jr8 Walter Servin RN RN bp Jonelle Bueno RN RN ca1 Corrections: (The following items were deleted from the chart) 14:05 14:01 Respiratory: the patient does not display signs of respiratory distress, jr8 Respirations: tachypnea, that is mild, Breath sounds: rales, that are mild, are located in both bases, jr8 16:08 14:08 Hospitalization Ordered by Mateo Barrios for Inpatient Admission. Preliminary bd diagnosis is Anasarca; Acute combined systolic (congestive) and diastolic (congestive) heart failure. Bed requested for Telemetry/MedSurg (Inpatient). Status is Inpatient Admission. Condition is Fair. Problem is new. Symptoms have improved. jr8 17:07 16:08 08/03/2020 14:08 Hospitalization Ordered by Mateo Barrios for Inpatient bp Admission. Preliminary diagnosis is Anasarca; Acute combined systolic (congestive) and diastolic (congestive) heart failure. Bed requested for Telemetry/MedSurg (Inpatient). Status is Inpatient Admission. Condition is Fair. Problem is new. Symptoms have improved. bd
--- NOTE | 2020-08-03 14:09 | ER ---
Nurse's Notes [facility] Name: Nikos Corona Age: 54 yrs Sex: Male : 1965 Arrival Date: 08/03/2020 Time: 11:49 Bed 16 Private MD: Diagnosis: Anasarca;Acute combined systolic (congestive) and diastolic (congestive) heart failure Presentation: 08/03 12:00 Chief complaint: Patient states: SOB at rest x 2 months. Swelling, redness, warm to ca1 touch of bilateral lower extremities x weeks. Scrotal pain and swelling x 1 week. Denies cough, denies fever. Reports heart problems. Coronavirus screen: Client denies travel out of the [place] in the last 14 days. At this time, the client does not indicate any symptoms associated with coronavirus-19. Ebola Screen: Patient negative for fever greater than or equal to 101.5 degrees Fahrenheit, and additional compatible Ebola Virus Disease symptoms Patient denies exposure to infectious person. Patient denies travel to an Ebola-affected area in the 21 days before illness onset. No symptoms or risks identified at this time. Initial Sepsis Screen: Does the patient meet any 2 criteria? No. Patient's initial sepsis screen is negative. Does the patient have a suspected source of infection? No. Patient's initial sepsis screen is negative. Risk Assessment: Do you want to hurt yourself or someone else? Patient reports no desire to harm self or others. Onset of symptoms was August 03, 2020. 12:00 Method Of Arrival: Wheelchair ca1 12:00 Acuity: YESI 3 ca1 Triage Assessment: 12:00 General: Appears distressed, uncomfortable, obese, Behavior is cooperative, appropriate bp for age, anxious. Pain: Complains of pain in pelvis, right leg and left leg. EENT: No deficits noted. Neuro: No deficits noted. Cardiovascular: No deficits noted. Respiratory: Reports shortness of breath on exertion. GI: Abdomen is distended. : No signs and/or symptoms were reported regarding the genitourinary system. Derm: No deficits noted. Musculoskeletal: No deficits noted. Historical: - Allergies: 12:03 Rifampin; ca1 12:03 Sulfa (Sulfonamide Antibiotics); ca1 - Home Meds: 16:59 Zolpidem Tartrate Oral [Active]; Albuterol Inhl [Active]; atorvastatin Oral 1 tab once bp daily [Active]; mag oxide 40mg 1 tab PO BID [Active]; Bumetanide Oral [Active]; carvedilol Oral [Active]; clopidogrel 75 mg Oral tab 1 tab once daily [Active]; Hydralazine Oral [Active]; Lasix 40 mg 1 tab PO DAILY (EVENING) [Active]; pantoprazole Oral [Active]; Potassium Chloride Oral [Active]; spironolactone 25 mg Oral tab 1 tab once daily [Active]; - PMHx: 12:03 Anxiety; ADD/ADHD; CAD; CHF; Diabetes - NIDDM; DVT; Hyperlipidemia; Hypertension; ca1 Myocardial infarction; neuropathy; osteomyelitis; PTSD; PVD; - PSHx: 12:03 Cholecystectomy; feet surgery; femur surgery; ca1 - Immunization history:: Adult Immunizations up to date. - Social history:: Smoking status: Patient reports the use of cigarette tobacco products, smokes one pack cigarettes per day. Screenin:28 Abuse screen: Denies threats or abuse. Denies injuries from another. Nutritional bp screening: No deficits noted. Tuberculosis screening: No symptoms or risk factors identified. Fall Risk None identified. Assessment: 12:00 General: SEE TRIAGE NOTE. bp 13:00 Reassessment: NEB COMPLETED, REPEAT LABS PENDING. bp 14:02 Reassessment: ALL CURRENT ORDERS COMPLETE, PT DIURESING. DISPO PENDING. bp 14:25 Reassessment: DR FERNANDEZ AT B/S. bp 15:30 Reassessment: ADMIT IN PROCESS, PT DIURESING WELL. bp 16:54 Reassessment: ADMIT COMPLETE, REPORT TO ROBERT RIOS. bp Vital Signs: 12:00 BP 99 / 68; Pulse 92; Resp 24; Temp 97.6(TE); Pulse Ox 92% on R/A; Weight 127.01 kg ca1 (R); Height 6 ft. 1 in. (185.42 cm) (R); 12:27 BP 98 / 71; Pulse 88; Resp 16; Pulse Ox 96% ; bp 13:28 BP 104 / 74; Pulse 82; Resp 16; Pulse Ox 97% ; bp 14:01 BP 105 / 52; Pulse 85; Resp 16; Pulse Ox 97% ; bp 15:00 BP 101 / 71; Pulse 86; Resp 16; Pulse Ox 93% ; bp 15:56 BP 92 / 71; Pulse 79; Resp 16; Pulse Ox 92% ; bp 16:51 BP 90 / 63; Pulse 72; Resp 16; Pulse Ox 100% ; bp 12:00 Body Mass Index 36.94 (127.01 kg, 185.42 cm) ca1 ED Course: 11:49 Patient arrived in ED. as 11:52 Walter Servin, RN is Primary Nurse. bp 11:54 Kam Jones PA is PHCP. jr8 11:54 Faizan Lopez MD is Attending Physician. jr8 12:02 Triage completed. ca1 12:03 Arm band placed on right wrist. ca1 12:05 Patient has correct armband on for positive identification. Bed in low position. Call bp light in reach. Side rails up X2. 12:24 Inserted saline lock: 20 gauge in left antecubital area, using aseptic technique. Blood bp collected. 13:31 XRAY Chest (1 view) In Process Unspecified. EDMS 14:07 Mateo Fernandez is Hospitalizing Provider. jr8 16:57 No provider procedures requiring assistance completed. Patient admitted, IV remains in bp place. Administered Medications: 12:15 Drug: Albuterol 2.5 mg Route: Inhalation; bp 12:45 Drug: Albuterol 2.5 mg Route: Inhalation; bp 13:15 Drug: Albuterol 2.5 mg Route: Inhalation; bp 13:30 Drug: Lasix 40 mg Route: IVP; Site: left antecubital; bp 14:09 Follow up: Response: No adverse reaction bp Outcome: 14:08 Decision to Hospitalize by Provider. jr8 16:57 Admitted to Med/surg accompanied by tech, via wheelchair, room 212, with chart, Report bp called to ROBERT RIOS 16:57 Condition: stable 16:57 Instructed on the need for admit. 17:07 Patient left the ED. bp Signatures: Dispatcher [employer] EDMS Maryse Machado as Kam Jones PA PA jr8 Walter Servin, RN RN bp AcobJonelle RN RN ca1
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
[2020-08-03] MEDS: ENOXAPARIN 40 MG/0.4 ML SQ SCH (18:40)
[2020-08-03 19:08] VITALS: BMI 34.2
[2020-08-03] MEDS ORDERED: HYDROCODONE/APAP 5/325 MG TAB PO PRN (19:15)
[2020-08-03] MEDS: MORPHINE 2 MG/ML SYR IV PRN (20:24)
[2020-08-03] MEDS ORDERED: Magnesium Sulfate 2gm IVPB 2 G/50 ML BAG IV ONE (20:32)
[2020-08-03] MEDS ORDERED: POTASSIUM CL SA 10 MEQ TAB PO ONE (20:33)
[2020-08-03] MEDS ORDERED: GLUCAGON 1 MG/VIAL IM PRN (23:29)
[2020-08-03] MEDS ORDERED: D50W 25 GM/50 ML SYRINGE/VIAL IV PRN (23:29)
[2020-08-04] MEDS: MORPHINE 2 MG/ML SYR IV PRN ×3 (01:38→21:16)
[2020-08-04 03:35] LABS: Absolute Lymphocytes (CBC) 1.8 K/uL (0.7-4.9); Basophils % 1.4 % (0-1.3); Hematocrit 36.1 % (39.6-49.0); Lymphocytes % 26.9 % (15.3-44.8); MPV 8.5 fL (7.6-11.3); RBC Red Blood Cell Count 3.91 M/uL (4.33-5.43)
[2020-08-04 03:46] LABS: Potassium 3.5 mmol/L (3.5-5.1)
[2020-08-04 03:47] LABS: Magnesium 1.3 mg/dL (1.8-2.4)
[2020-08-04] MEDS ORDERED: Magnesium Sulfate 2gm IVPB 2 G/50 ML BAG IV ONE ×2 (03:49→21:00)
[2020-08-04] MEDS ORDERED: POTASSIUM CL SA 10 MEQ TAB PO ONE (03:50)
[2020-08-04] MEDS: INSULIN -REGULAR HUMAN 50 UNIT/0.5 ML ML SQ SCH ×4 (07:30→20:37)
[2020-08-04] MEDS: FUROSEMIDE 40 MG/4 ML VIAL IV SCH ×2 (08:27→16:14)
[2020-08-04] MEDS: CLOPIDOGREL 75 MG TABLET PO SCH (08:29)
[2020-08-04] MEDS: ENOXAPARIN 40 MG/0.4 ML SQ SCH (08:29)
[2020-08-04] MEDS: ALBUTEROL 2.5 MG/3 ML NEB SOL NEB PRN ×3 (09:58→20:55)
--- NOTE | 2020-08-04 12:24 | P.PN ---
Subjective Date of Service: 08/04/20 Chief Complaint: Shortness of breath and increased lower extremity swelling Patient is complaining of shortness of breath and asking for breathing treatment. Lower extremity edema improving slowly. Physical Examination - Vital Signs Temperature: 97.9 F Blood Pressure: 108/82 Pulse: 85 Respirations: 16 Pulse Ox (%): 95 - Physical Exam General: Alert, In no apparent distress HEENT: Mucous membr. moist/pink Respiratory: Normal air movement, Rhonchi/gurgles (Mild bibasilar rhonchi) Cardiovascular: Regular rate/rhythm, Normal S1 S2, Edema (3+ bilateral lower extremities) Gastrointestinal: Normal bowel sounds, Soft and benign, No tenderness Musculoskeletal: Erythema (Bilateral lower extremities) Neurological: Other (Nonfocal) - Studies Laboratory Data (last 24 hrs) 08/03/20 12:20: PT 16.5 H, INR 1.41 08/03/20 12:20: WBC 8.0, Hgb 11.8 L, Hct 35.6 L, Plt Count 181 08/03/20 12:20: Sodium 137, Potassium 3.4 L, BUN 18, Creatinine 0.94, Glucose 170 H, Magnesium 1.2 L* D, Total Bilirubin 1.0, AST 17, ALT 13, Alkaline Phosphatase 95 Assessment And Plan - Current Problems (Diagnosis) (1) Biventricular heart failure with reduced left ventricular function Current Visit: Yes Status: Acute (2) Acute on chronic systolic CHF (congestive heart failure) Current Visit: No Status: Acute (3) Diabetes mellitus Onset Date: 06/08/18 Current Visit: No Status: Chronic Qualifiers: (4) History of implantable cardiac defibrillator (ICD) Onset Date: 06/08/18 Current Visit: No Status: Chronic (5) Obesity Onset Date: 06/08/18 Current Visit: No Status: Chronic Qualifiers: - Plan Continue and titrate IV Lasix Start bronchodilators. Troponin trended flat. Place Lama catheter for strict I and O Cardiology consult is pending. Daily weight and intake and output charting. Fluid and salt restriction Keep lower extremities elevated. Hold antihypertensives for now given soft blood pressure.
[2020-08-04] MEDS: NICOTINE 21 MG/PAT TD SCH (21:16)
[2020-08-04] MEDS: HYDROCODONE/APAP 10/325 TAB PO PRN (22:30)
[2020-08-05] MEDS: MORPHINE 2 MG/ML SYR IV PRN ×6 (01:50→22:09)
--- NOTE | 2020-08-05 02:48 | CON ---
Date of Consultation: 08/04/2020 Reason For Consultation: Acute exacerbation of congestive heart failure. History Of Present Illness: Mr. Corona is a 54-year-old male whom we have seen in the hospital here a few times. He has an echocardiogram that showed four-chamber dilatation. He has an AICD and a pace maker. Last ejection fraction in December of 2019 is 27%. He has mild pulmonary hypertension. A he art catheterization that was done in December of 2019 had to be rescheduled because of the patient's refusal. He was just recently here in June 2020 for acute on chronic systolic congestive heart terese lure exacerbation and coronary artery disease. Again, he refused the catheterization one more time. He comes back with anasarca, PND, orthopnea, pedal edema, but no chest pain, no palpitation, no sync ope. He also denied any fever or chills or cough. Past Medical History: He has an extensive past medical history including anxiety, ADD with ADHD, CAD , CHF, diabetes, DVT, hyperlipidemia, hypertension, neuropathy, osteomyelitis, PVD, and posttraumatic stress disorder. He has had a cholecystectomy, has had hip surgery and a surgery on his feet. Allergies: TO RIFAMPIN AND SULFA. Review of Systems: Negative. Social History: Positive for tobacco and alcohol. Medications: At home include Lipitor, magnesium, Bumex, carvedilol, Plavix, hydralazine, pantoprazol e, spironolactone. Physical Examination: Vital Signs: His vital signs were pretty stable. He was afebrile. He was in a sinus rhythm. His O 2 saturation was 92% on room air with a pulse ox reading of 92. HEENT: Negative. Neck: Supple. No bruit, lymphadenopathy, or JVD or thyromegaly. Chest: Reveals rales both bases. Cardiac Exam: Revealed a regular rhythm and rate with an S3 gallop, but no murmurs or rubs. Abdomen: Benign. Extremities: Revealed extensive edema. Diagnostic Data: Positive for a magnesium of 1.3. His potassium was 3.4. His creatinine was 0.92. His glucose was 160. His phosphorus was low at 1.5. Troponin was 0.05 x2. BNP was 12,360. EKG sh owed a normal sinus rhythm with a nonspecific changes. Chest x-ray showed CHF. Impression And Plan: 1.Acute on chronic systolic congestive heart failure. The patient is presently on IV Lasix. 2.Low potassium and low magnesium, that are being supplemented. 3.History of coronary artery disease. He is on Plavix and aspirin. His medications from a congestive heart failure standpoint are appropriate including beta blockers, B umex, Aldactone, and TONE inhibitors. His other problems include hypertension, dyslipidemia, attentio n-deficit disorder with attention-deficit hyperactivity disorder, neuropathy, osteomyelitis, peripher al vascular disease, posttraumatic stress disorder are all well controlled. We will continue diuresi s, watch his I's and O's, daily weight, and creatinine, potassium and magnesium. I will continue to follow him. No need for more intervention or stress test or echocardiography at this point. LIZZIE/GERHARD Voice ID: [id number] Report ID: [id number]
[2020-08-05] MEDS: HYDROCODONE/APAP 10/325 TAB PO PRN ×5 (03:42→23:10)
[2020-08-05 05:43] LABS: BUN Blood Urea Nitrogen 14 mg/dL (7-18); Bicarbonate 30 mmol/L (21-32); Glucose Level 96 mg/dL (74-106); Magnesium 1.8 mg/dL (1.8-2.4); Potassium 3.7 mmol/L (3.5-5.1); Sodium Level 140 mmol/L (136-145)
[2020-08-05] MEDS: INSULIN -REGULAR HUMAN 50 UNIT/0.5 ML ML SQ SCH ×4 (07:30→20:21)
[2020-08-05] MEDS ORDERED: POTASSIUM CL SA 10 MEQ TAB PO ONE (08:00)
[2020-08-05] MEDS ORDERED: MAGNESIUM SULFATE 1 gm IVPB 1 GM/100 ML BAG IV ONE (08:00)
[2020-08-05] MEDS: ALBUTEROL 2.5 MG/3 ML NEB SOL NEB PRN ×3 (08:15→23:40)
[2020-08-05] MEDS: FUROSEMIDE 40 MG/4 ML VIAL IV SCH ×2 (09:39→17:32)
[2020-08-05] MEDS: CLOPIDOGREL 75 MG TABLET PO SCH (09:39)
[2020-08-05] MEDS: METOLAZONE 2.5 MG TABLET PO SCH (09:40)
[2020-08-05] MEDS: NICOTINE 21 MG/PAT TD SCH (09:40)
[2020-08-05] MEDS: ENOXAPARIN 40 MG/0.4 ML SQ SCH (09:40)
--- NOTE | 2020-08-05 11:14 | P.PN ---
Subjective Date of Service: 08/05/20 Chief Complaint: Shortness of breath and increased lower extremity swelling Patient is complaining of pain in the bilateral lower extremities and back Lower extremity edema improving slowly. Urine output has been lower than expected. Physical Examination - Vital Signs Temperature: 97.9 F Blood Pressure: 102/71 Pulse: 89 Respirations: 18 Pulse Ox (%): 92 - Physical Exam General: Alert, In no apparent distress Respiratory: Clear to auscultation bilaterally, Normal air movement Cardiovascular: Regular rate/rhythm, Normal S1 S2, Edema (3+ bilateral lower extremities) Gastrointestinal: Normal bowel sounds, Soft and benign, No tenderness Musculoskeletal: Swelling (Bilateral lower extremities) Integumentary: Erythema (Bilateral lower extremities.) Neurological: Other (Nonfocal) Assessment And Plan - Current Problems (Diagnosis) (1) Biventricular heart failure with reduced left ventricular function Current Visit: Yes Status: Acute (2) Acute on chronic systolic CHF (congestive heart failure) Current Visit: No Status: Acute (3) Diabetes mellitus Onset Date: 06/08/18 Current Visit: No Status: Chronic Qualifiers: (4) History of implantable cardiac defibrillator (ICD) Onset Date: 06/08/18 Current Visit: No Status: Chronic (5) Obesity Onset Date: 06/08/18 Current Visit: No Status: Chronic Qualifiers: - Plan Titrate IV Lasix. Increase jessica to 60 mg q.12 hrs. Added metolazone to aid with diuresis Continue bronchodilators Cardiology input appreciated. Daily weight and intake and output charting. Fluid and salt restriction Keep lower extremities elevated. Continue to hold antihypertensives for now given soft blood pressure. Replete electrolytes as needed.
--- NOTE | 2020-08-05 18:24 | PN ---
Date of Progress Note: 08/05/2020 Subjective: Mr. Corona has been followed for acute on chronic systolic congestive heart failure with an ejection fraction of 27%. He has an AICD, has refused catheterization. He had come in with [facility]. He has been treated with IV Lasix. He is on beta-blockers, Bumex, Aldactone, and Entresto at h ome. He also has dyslipidemia, hypertension, attention deficit disorder, and posttraumatic stress di sorder. Today, his vital signs were stable. His blood pressure is 113/68. He is afebrile. His res piratory rate is 16. His pulse is 83, in sinus rhythm. His saturations 93% on room air. His last c reatinine is 0.76, last potassium 3.7, last magnesium is 1.8. His last troponin is 0.05. I think he can certainly use 1 more day of IV Lasix. I agree with adding metolazone 2.5 mg, although he can pr obably handle a higher dose such as 5 or 10 mg if he has to. We will continue his inhalers, his Plav ix, his Lovenox, magnesium and potassium supplementation and he can go home whenever it is okay with Dr. Locke and we will see him in the office in the next week or two. LIZZIE/GERHARD Voice ID: [id number] Report ID: [id number]
[2020-08-06] MEDS: MORPHINE 2 MG/ML SYR IV PRN ×5 (02:39→21:09)
[2020-08-06] MEDS: HYDROCODONE/APAP 10/325 TAB PO PRN ×4 (04:48→23:29)
[2020-08-06 06:13] LABS: BUN Blood Urea Nitrogen 16 mg/dL (7-18); Bicarbonate 30 mmol/L (21-32); Glucose Level 103 mg/dL (74-106); Magnesium 1.6 mg/dL (1.8-2.4); Potassium 3.8 mmol/L (3.5-5.1); Sodium Level 140 mmol/L (136-145)
[2020-08-06] MEDS: INSULIN -REGULAR HUMAN 50 UNIT/0.5 ML ML SQ SCH ×4 (07:30→21:00)
[2020-08-06] MEDS: ALBUTEROL 2.5 MG/3 ML NEB SOL NEB PRN ×2 (07:55→13:15)
[2020-08-06] MEDS: FUROSEMIDE 40 MG/4 ML VIAL IV SCH ×2 (08:52→16:23)
[2020-08-06] MEDS: METOLAZONE 2.5 MG TABLET PO SCH (08:52)
[2020-08-06] MEDS: CLOPIDOGREL 75 MG TABLET PO SCH (08:52)
[2020-08-06] MEDS: ENOXAPARIN 40 MG/0.4 ML SQ SCH (08:53)
[2020-08-06] MEDS: NICOTINE 21 MG/PAT TD SCH (08:53)
[2020-08-06] MEDS ORDERED: POTASSIUM CL SA 10 MEQ TAB PO ONE (09:00)
[2020-08-06] MEDS ORDERED: MAGNESIUM SULFATE 1 gm IVPB 1 GM/100 ML BAG IV ONE (09:00)
--- NOTE | 2020-08-06 11:05 | P.PN ---
Subjective Date of Service: 08/06/20 Chief Complaint: Shortness of breath and increased lower extremity swelling Patient diuresed well yesterday. He has lower extremity edema has improved. Physical Examination - Vital Signs Temperature: 97.3 F Blood Pressure: 112/75 Pulse: 98 Respirations: 16 Pulse Ox (%): 91 - Physical Exam General: Alert, In no apparent distress Neck: JVD not distended Respiratory: Clear to auscultation bilaterally, Normal air movement Cardiovascular: Edema (3+ bilateral lower extremity edema) Gastrointestinal: Normal bowel sounds, Soft and benign, No tenderness Musculoskeletal: Swelling (Bilateral lower extremity) Integumentary: Erythema (Bilateral legs, worse on the left.) Neurological: Normal strength at 5/5 x4 extr Assessment And Plan - Current Problems (Diagnosis) (1) Biventricular heart failure with reduced left ventricular function Current Visit: Yes Status: Acute (2) Acute on chronic systolic CHF (congestive heart failure) Current Visit: No Status: Acute (3) Diabetes mellitus Onset Date: 06/08/18 Current Visit: No Status: Chronic Qualifiers: (4) History of implantable cardiac defibrillator (ICD) Onset Date: 06/08/18 Current Visit: No Status: Chronic (5) Obesity Onset Date: 06/08/18 Current Visit: No Status: Chronic Qualifiers: - Plan Continue Lasix 60 mg q.12 hrs and metolazone Continue bronchodilators Daily weight and intake and output charting. Fluid and salt restriction Keep lower extremities elevated. Continue to hold antihypertensives for now given soft blood pressure. Replete electrolytes as needed.
[2020-08-07] MEDS: MORPHINE 2 MG/ML SYR IV PRN ×5 (01:28→21:48)
[2020-08-07] MEDS: ALBUTEROL 2.5 MG/3 ML NEB SOL NEB PRN ×2 (01:45→21:00)
[2020-08-07] MEDS: HYDROCODONE/APAP 10/325 TAB PO PRN ×4 (03:56→20:44)
[2020-08-07 06:23] LABS: Magnesium 1.5 mg/dL (1.8-2.4); Potassium 4.2 mmol/L (3.5-5.1)
[2020-08-07] MEDS ORDERED: Magnesium Sulfate 2gm IVPB 2 G/50 ML BAG IV ONE (06:24)
[2020-08-07] MEDS: INSULIN -REGULAR HUMAN 50 UNIT/0.5 ML ML SQ SCH ×5 (07:30→22:00)
[2020-08-07] MEDS: ENOXAPARIN 40 MG/0.4 ML SQ SCH (08:09)
[2020-08-07] MEDS: FUROSEMIDE 40 MG/4 ML VIAL IV SCH (08:09)
[2020-08-07] MEDS: NICOTINE 21 MG/PAT TD SCH (08:09)
[2020-08-07] MEDS: CLOPIDOGREL 75 MG TABLET PO SCH (08:11)
[2020-08-07] MEDS: METOLAZONE 2.5 MG TABLET PO SCH (08:12)
--- NOTE | 2020-08-07 11:34 | P.PN ---
Subjective Date of Service: 08/07/20 Chief Complaint: Shortness of breath and increased lower extremity swelling Patient clinically improved. His lower extremity edema has improved significantly. Patient diuresing well with Lasix and metozalone. Physical Examination - Vital Signs Temperature: 97.7 F Blood Pressure: 103/68 Pulse: 87 Respirations: 20 Pulse Ox (%): 90 - Physical Exam General: Alert, In no apparent distress Neck: Supple Respiratory: Clear to auscultation bilaterally Cardiovascular: Edema (3+ bilateral lower extremity edema) Gastrointestinal: Normal bowel sounds, Soft and benign, No ascites Musculoskeletal: Erythema (Left lower extremity) Neurological: Normal strength at 5/5 x4 extr Assessment And Plan - Current Problems (Diagnosis) (1) Biventricular heart failure with reduced left ventricular function Current Visit: Yes Status: Acute (2) Acute on chronic systolic CHF (congestive heart failure) Current Visit: No Status: Acute (3) Diabetes mellitus Onset Date: 06/08/18 Current Visit: No Status: Chronic Qualifiers: (4) History of implantable cardiac defibrillator (ICD) Onset Date: 06/08/18 Current Visit: No Status: Chronic (5) Obesity Onset Date: 06/08/18 Current Visit: No Status: Chronic Qualifiers: - Plan Transient IV Lasix to oral lasix Continue bronchodilators Daily weight and intake and output charting. Fluid and salt restriction Keep lower extremities elevated. Continue to hold antihypertensives for now given soft blood pressure. Replete electrolytes as needed.
[2020-08-07] MEDS: FUROSEMIDE 40 MG TABLET PO SCH (16:26)
[2020-08-07] MEDS ORDERED: MAGNESIUM SULFATE 1 gm IVPB 1 GM/100 ML BAG IV ONE (18:00)
[2020-08-08] MEDS: MORPHINE 2 MG/ML SYR IV PRN ×5 (01:53→22:34)
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
[2020-08-08 05:15] LABS: Magnesium 1.7 mg/dL (1.8-2.4); Phosphorus 4.3 mg/dL (2.5-4.9); Potassium 3.6 mmol/L (3.5-5.1)
[2020-08-08 07:00] LABS: Urine Appearance CLEAR; Urine Bilirubin NEGATIVE (NEG); Urine Blood NEGATIVE (NEG); Urine Color YELLOW; Urine Glucose NEGATIVE (NEG); Urine Protein NEGATIVE (NEG); Urine pH 7.5 (5.0-7.0)
[2020-08-08] MEDS: INSULIN -REGULAR HUMAN 50 UNIT/0.5 ML ML SQ SCH ×4 (07:30→20:18)
[2020-08-08 08:36] LABS: Urine Bacteria <20 /HPF (NONE SEEN); Urine Culture Reflex Order NOT NEEDED; Urine RBC NONE SEEN /HPF (NONE SEEN)
[2020-08-08] MEDS: CLOPIDOGREL 75 MG TABLET PO SCH (08:48)
[2020-08-08] MEDS: NICOTINE 21 MG/PAT TD SCH (08:48)
[2020-08-08] MEDS: ENOXAPARIN 40 MG/0.4 ML SQ SCH (08:50)
[2020-08-08] MEDS: SPIRONOLACTONE 25 MG TABLET PO SCH ×2 (08:50→20:22)
[2020-08-08] MEDS: FUROSEMIDE 40 MG TABLET PO SCH ×2 (08:50→16:57)
[2020-08-08] MEDS: METOLAZONE 2.5 MG TABLET PO SCH (08:51)
[2020-08-08] MEDS ORDERED: MAGNESIUM SULFATE 1 gm IVPB 1 GM/100 ML BAG IV ONE (09:00)
[2020-08-08] MEDS ORDERED: POTASSIUM CL SA 10 MEQ TAB PO ONE (09:00)
--- NOTE | 2020-08-08 09:04 | RAD REPORT ---
EXAM DESCRIPTION: US - Renal Ultrasound-Complete - 08/08/2020 8:31 am CLINICAL HISTORY: Acute renal insufficiency COMPARISON: December 2019 FINDINGS: The right kidney measures 12 cm with an increased echotexture. The left kidney measures 10 cm with an increased echotexture. Hydronephrosis is not seen. Bladder wall appears thickened IMPRESSION: Mildly increased renal echotexture consistent with parenchymal disease Apparent thickened bladder wall may be secondary to incomplete distention or inflammation
[2020-08-08] MEDS ORDERED: Magnesium Sulfate 2gm IVPB 2 G/50 ML BAG IV ONE (10:23)
--- NOTE | 2020-08-08 10:48 | P.PN ---
Subjective Date of Service: 08/08/20 Chief Complaint: Shortness of breath and increased lower extremity swelling Subjective: Improving (breathing comfortably, swelling persists, continues with significant pain) Physical Examination - Vital Signs Temperature: 97.7 F Blood Pressure: 100/70 Pulse: 82 Respirations: 18 Pulse Ox (%): 96 - Physical Exam General: Alert, In no apparent distress, Obese Respiratory: Diminished (at bases) Cardiovascular: Regular rate/rhythm, Edema (up to thighs bilaterally) Gastrointestinal: Soft and benign, No tenderness Integumentary: Erythema (LLE slightly) Neurological: Normal speech, Normal affect Assessment & Plan Physician Review Additional Text: Acute on chronic systolic CHF (congestive heart failure), Anasarca Biventricular heart failure with reduced left ventricular function History of implantable cardiac defibrillator (ICD) HTN Diabetes mellitus Obesity Acute on chronic systolic CHF (congestive heart failure), Anasarca Biventricular heart failure with reduced left ventricular function History of implantable cardiac defibrillator (ICD) -IV lasix switched to PO lasix yesterday (80mg BID) -will monitor and ensure adequate UOP today -pt breathing more comfortably -still with b/l lower extremity edema -fluid & salt restriction, elevate lower extremities -nephrology is consulted - appreciate assistance - on lasix & spironolactone, metolazone, undergoing further evaluation / 24hr collections -cardiology consulted as well HTN -holding home meds, PRN ordered Chronic Pain -continue home meds Diabetes mellitus Obesity -sliding scale insulin, accucheks ACHS VTE: Lovenox Code: Full Dispo: further renal workup today, ensure adequate UOP on PO lasix anticipate DC home tomorrow Critical Care: Yes Time Spent Managing Pts Care (In Minutes): 35
--- NOTE | 2020-08-08 13:36 | RAD REPORT ---
EXAM DESCRIPTION: RAD - Chest Single View - 08/08/2020 12:52 pm CLINICAL HISTORY: COPD, shortness of breath COMPARISON: Portable August 03 TECHNIQUE: AP portable chest image was obtained 08/08/2020 12:52 pm . FINDINGS: Lung volumes are low which accentuates chest findings. Interstitial and alveolar opacifica tion scattered throughout both lung lizama. This appears worse even when adjusting for the lower lung volumes. Left-sided pacemaker/ defibrillator remains in place. Cardiomegaly is again noted. No pneumothorax or enlarging pleural effusion. No acute bony abnormality seen. No acute aortic findi ngs suspected. IMPRESSION: CHF/volume overload pattern showing progression since August 03.
[2020-08-08] MEDS: HYDROCODONE/APAP 10/325 TAB PO PRN (20:22)
[2020-08-08] MEDS: ALBUTEROL 2.5 MG/3 ML NEB SOL NEB PRN (20:45)
--- NOTE | 2020-08-08 20:45 | PN ---
Date of Progress Note: 08/08/2020 Subjective: The patient was admitted with over volume, over load with anasarca. The patient is seen on diuresis. The patient responded to diuresis, but still has significant anasarca. Physical Examination: Vital Signs: Blood pressure 100/60, pulse of 97, afebrile. The patient had good urine output of 5 L, negative for 3600. The patient still lost 4 pounds from yesterday. Chest: Decreased entry bilateral base. Heart: S1 and S2, systolic murmur. Abdomen: Soft, nontender. Extremities: +3 edema. Mid toe amputation on the left. Laboratory Data: WBC 6.9, H and H 12/36.1, platelets 176. Sodium 140, potassium 3.6, bicarb 30, BUN 19, creatinine 1.1, GFR of 67, magnesium 1.7, phosphorus 4.3, calcium 9.5. TSH 2.2. PC ratio is still pending. Serology is still pending. Current Medications: The patient is on meds, include; 1. Plavix. 2. Lovenox. 3. Spironolactone 25 b.i.d. 4. Lasix 80 b.i.d. 5. Metolazone. 6. Insulin. 7. Magnesium. Assessment And Plan: 1. Acute kidney injury, secondary to cardiorenal, anasarca, still over volume, responding to current diuresis. I am going to continue to increase his Lasix. If he fails current regimen, I going to consider switching him to Bumex giving the low albumin on his lab as Bumex is not going to need a carrier. 2. Hypokalemia, hypomagnesemia. We will supplement. I am going to continue spironolactone. 3. Hypomagnesemia. I will supplement. 4. Hypertension, currently low blood pressure. We will utilize the blood pressure for more diuresis. 5. Anasarca, secondary to congestive heart failure. We will accept the mild decline in the kidney function in favor of establishing better volume control. TSH came within normal limit, pending PTH. time spent to coordinate the care , discussing with other team meember the care , face to face with the patient and discussed the plan with patient , placing order 35 min ROSS/GERHARD Voice ID: [id number] Report ID: [id number] KAUR
[2020-08-09] MEDS: MORPHINE 2 MG/ML SYR IV PRN (02:32)
[2020-08-09 06:31] LABS: Albumin 2.9 g/dL (3.4-5.0); Magnesium 1.5 mg/dL (1.8-2.4); Phosphorus 4.3 mg/dL (2.5-4.9); Potassium 3.8 mmol/L (3.5-5.1); Uric Acid 9.5 mg/dL (3.5-7.2)
[2020-08-09] MEDS ORDERED: KCL 20 MEQ/100 mL IVPB 20 MEQ/100 ML BAG IV SCH (07:00)
[2020-08-09] MEDS: INSULIN -REGULAR HUMAN 50 UNIT/0.5 ML ML SQ SCH ×2 (07:30→11:30)
[2020-08-09] MEDS ORDERED: POTASSIUM 25 MEQ EFFERV TAB PO ONE (08:00)
[2020-08-09] MEDS ORDERED: MAGNESIUM SULFATE 1 gm IVPB 1 GM/100 ML BAG IV ONE (08:00)
[2020-08-09] MEDS: ALBUTEROL 2.5 MG/3 ML NEB SOL NEB PRN (08:20)
[2020-08-09] MEDS: NICOTINE 21 MG/PAT TD SCH (09:00)
[2020-08-09] MEDS: CLOPIDOGREL 75 MG TABLET PO SCH (09:12)
[2020-08-09] MEDS: METOLAZONE 2.5 MG TABLET PO SCH (09:12)
[2020-08-09] MEDS: ENOXAPARIN 40 MG/0.4 ML SQ SCH (09:12)
[2020-08-09] MEDS: HYDROCODONE/APAP 10/325 TAB PO PRN (09:13)
[2020-08-09] MEDS: SPIRONOLACTONE 25 MG TABLET PO SCH (09:13)
[2020-08-09] MEDS: FUROSEMIDE 40 MG TABLET PO SCH (09:13)
[2020-08-09] MEDS ORDERED: Magnesium Sulfate 2gm IVPB 2 G/50 ML BAG IV ONE (10:26)
--- NOTE | 2020-08-09 11:49 | PN ---
Date of Progress Note: 08/09/2020 Subjective: The patient was admitted with anasarca. The patient is poor compliant with fluid restriction or low-salt diet. The patient being on diuresis, responding very well. Objective: Vital Signs: Blood pressure is still on the margin low side 89/58, pulse of 92, saturating on room air 90% to 92%. The patient had good urine output of 3900, negative of 3 L. Chest: Decreased entry bilateral base. Heart: S1, S2. Systolic murmur. Abdomen: Soft, nontender. Extremities: +3 edema, venous stasis, left middle toe amputation. Neurologic: Alert and oriented x3. No focal. Laboratory Data: WBC 6.9, H and H 12/36.1. Sodium 138, potassium 3.8, bicarb 29, BUN 19, creatinine 1, uric acid 9.5, phosphorus 4.3, magnesium 1.5. Assessment And Plan: 1. Acute kidney injury secondary to cardiorenal, still over volume, but no respiratory symptoms. I am going to continue the patient on diuresis. We will switch the patient to oral to avoid further low blood pressure and we will increase metolazone to 5 mg. The patient cleared from the Renal standpoint for discharge planning to follow up with Dr. Burgos in 2-3 weeks. 2. Hypomagnesemia, persist. Continue supplement. We will supplement with another 2 g. 3. Hypokalemia. Continue spironolactone. 4. Advanced congestive heart failure with ejection fraction of 27%. Tolerating spironolactone. We will optimize diuresis. time spent to coordinate the care , discussing with other team meember the care , face to face with the patient and discussed the plan with patient , placing order 35 min SHIRLEY Voice ID: [id number] Report ID: [id number] KAUR
[2020-08-09 12:27] VITALS: O2SAT 96
[2020-08-09 12:34] VITALS: BP 96/61; TEMP 98.2
[2020-08-09 13:43] LABS: Urine Protein/Creatinine Ratio 0.38 ratio (<0.15)
--- NOTE | 2020-08-09 22:31 | P.DS ---
Admission Date: 08/03/20 Discharge Date: 08/09/20 Disposition: ROUTINE DISCHARGE Discharge Condition: FAIR Reason for Admission: Shortness of breath and increased lower extremity swelling Vital Signs/Physical Exam: Temp Pulse Resp BP Pulse Ox 98.2 F 90 18 96/61 96 08/09/20 12:00 08/09/20 12:00 08/09/20 12:00 08/09/20 12:00 08/09/20 12:00 Laboratory Data at Discharge: WBC 6.9 K/uL (4.3-10.9) 08/04/20 03:01 Hgb 12.0 g/dL (13.6-17.9) L 08/04/20 03:01 Hct 36.1 % (39.6-49.0) L 08/04/20 03:01 Plt Count 176 K/uL (152-406) 08/04/20 03:01 PT 16.5 SECONDS (9.5-12.5) H 08/03/20 12:20 INR 1.41 08/03/20 12:20 Sodium 138 mmol/L (136-145) 08/09/20 05:28 Potassium 3.8 mmol/L (3.5-5.1) 08/09/20 05:28 BUN 19 mg/dL (7-18) H 08/09/20 05:28 Creatinine 1.02 mg/dL (0.55-1.3) 08/09/20 05:28 Glucose 101 mg/dL (74-106) 08/09/20 05:28 Uric Acid 9.5 mg/dL (3.5-7.2) H D 08/09/20 05:28 Phosphorus 4.3 mg/dL (2.5-4.9) 08/09/20 05:28 Magnesium 1.5 mg/dL (1.8-2.4) L 08/09/20 05:28 Total Bilirubin 1.0 mg/dL (0.2-1.0) 08/03/20 12:20 AST 17 U/L (15-37) 08/03/20 12:20 ALT 13 U/L (12-78) 08/03/20 12:20 Alkaline Phosphatase 95 U/L (45-117) 08/03/20 12:20 Troponin I 0.06 ng/mL (0.0-0.045) H 08/03/20 23:40 Home Medications: Aspirin [Aspirin EC 81 MG] 81 mg PO DAILY #30 tablet. 01/12/20 Clopidogrel Bisulfate [Plavix*] 75 mg PO DAILY #30 tablet 01/12/20 Pantoprazole [Protonix Tab*] 40 mg PO DAILYAC #30 tab 01/12/20 carvediloL [Coreg*] 3.125 mg PO BID 6AM 6PM #60 tab 01/12/20 Hydrocodone 10/APAP 325 [[place] 10325*] 1 tab PO Q4H PRN 06/23/20 Albuterol Inhaler [Ventolin Inhaler*] 3 puff IH BID PRN 08/03/20 Albuterol Sulfate [Albuterol Sulfate Hfa] 18 gm IH QID 08/03/20 Atorvastatin Calcium [Lipitor] 80 mg PO DAILY 08/03/20 Magnesium Oxide [Mag 0X*] 400 mg PO BID 08/03/20 Mirtazapine 7.5 mg PO BEDTIME 08/03/20 Furosemide [Lasix] 80 mg PO BID 30 Days #60 tablet 08/09/20 Spironolactone [Aldactone*] 1 tab PO BID 30 Days #60 tab 08/09/20 metOLazone [Zaroxolyn*] 5 mg PO DAILY 30 Days #30 tab 08/09/20 New Medications: Spironolactone [Aldactone*] 1 tab PO BID 30 Days #60 tab Furosemide [Lasix] 80 mg PO BID 30 Days #60 tablet metOLazone [Zaroxolyn*] 5 mg PO DAILY 30 Days #30 tab Patient Discharge Instructions: Follow up with PCP within 1-2 weeks. Follow up with Dr. Bugros (Nephrology) in 2-3 weeks Diet: AHA Activity: Ad tonya
[2020-08-10] MEDS ORDERED: METOLAZONE 5 MG TABLET PO SCH (09:00)
[2020-08-10 19:20] LABS: HBsAG Nonreactive (Nonreactive)
== END 2020-08-09 12:20 | disposition home or self-care (01) | DRG 292 ==
LOC: ER 11:46 → ERHOLD 15:15 → 2ND 16:59
PROVIDERS: ADMIT Internal Medicine; ATTEND Hospitalist
DX: I11.0 Hypertensive heart disease with heart failure (principal); N17.9 Acute kidney failure, unspecified; I50.23 Acute on chronic systolic (congestive) heart failure; I25.10 Atherosclerotic heart disease of native coronary artery without angina pectoris; E11.9 Type 2 diabetes mellitus without complications; I25.2 Old myocardial infarction; E66.9 Obesity, unspecified; F43.10 Post-traumatic stress disorder, unspecified; E87.6 Hypokalemia; G89.29 Other chronic pain; E88.09 Other disorders of plasma-protein metabolism, not elsewhere classified; E11.40 Type 2 diabetes mellitus with diabetic neuropathy, unspecified; F17.290 Nicotine dependence, other tobacco product, uncomplicated; F90.9 Attention-deficit hyperactivity disorder, unspecified type; J44.9 Chronic obstructive pulmonary disease, unspecified; I50.814 Right heart failure due to left heart failure; N50.89 Other specified disorders of the male genital organs; E11.51 Type 2 diabetes mellitus with diabetic peripheral angiopathy without gangrene; Z95.5 Presence of coronary angioplasty implant and graft; Z95.810 Presence of automatic (implantable) cardiac defibrillator; Z89.429 Acquired absence of other toe(s), unspecified side; Z68.39 Body mass index [BMI] 39.0-39.9, adult; Z79.02 Long term (current) use of antithrombotics/antiplatelets; Z86.718 Personal history of other venous thrombosis and embolism; Z79.82 Long term (current) use of aspirin; Z79.4 Long term (current) use of insulin; Z90.49 Acquired absence of other specified parts of digestive tract; Z79.891 Long term (current) use of opiate analgesic; Z88.1 Allergy status to other antibiotic agents; Z79.899 Other long term (current) drug therapy; Z20.828 Contact with and (suspected) exposure to other viral communicable diseases
CPT/HCPCS: 36415; 71045; 76770; 80048; 80069; 80074; 80076; 81001; 82570; 82947; 83735; 83880; 84100; 84156; 84443; 84484; 84550; 85025; 85610; 86335; 87389; 93005; 94640; 96374; 99285; J1650; J1940; J2270; J3475; U0002

== ENCOUNTER 2021-08-04 01:03 | Inpatient (IN) | payer OTHER ==
--- OUTSIDE RECORDS SUMMARY | 2021-08-04 01:11 | XMS REPORT | Continuity of Care Document ---
:1965 Author Organization [facility] t Address [address] [place] [address] Care Team Providers Name Role Phone Benjamin Carlin MD, Kaleb Primary Care Physician [phone] Addy MEZA Attending Clinician SANJANA DIANA Attending Clinician Unavailable SANJANA DIANA Admitting Clinician Unavailable Payers Payer Name Policy Type Policy Number Effective Date Expiration Date S ource Problems Condition Condition Condition Status Onset Resolution Last Treating Co mments Source Name Details Category Date Date Treatment Clinician Date Essential Essential Disease Active 2020-[address] [facility] hypertensi hypertensi 2-25 [facility] - on on 00:00: Medical 00 Center Hyperlipid Hyperlipid Disease Active 2020-[address] [facility]ia 2[facility] Type 2 Type 2 Disease Active 2020-[address] [facility] [address] diabetes diabetes 2-25 [facility] - mellitus mellitus 00:00: Medica l 00 Center Acute Acute Disease Active 2020-[address] [facility] [address] kidney kidney 2-25 [facility] injury injury 00:00: Medical 00 Center Acute on Acute on Disease Active 2020-0 [facility] chronic chronic [facility] - systolic systolic 00:00: Medica l heart heart 00 Center failure, failure, NYHA class NYHA class 4 4 Allergies, Adverse Reactions, Alerts Allergy Allergy Status Severity Reaction(s) Onset Inactive Treating Comm ents Source Name Type Date Date Clinician Sulfa DA Active U 2020-0 [facility] [place] Antib[facility] 00 Medical ics) Center rifampin DA Active U 2020-0 [facility] 06-30 [place] 00:00: [place] 00 [facility] Center Rifampin Propensi Active Severe Other [facility] [...] Start Date Stop Date Quantity Comments Source Cigarettes smoked 2020-01-18 2020-01-[address] [facility] [address] [place] - current (pack per 00:00:00 00:00:00 Medical Center day) - Reported Tobacco use and 2020-01-18 2020-01-[address] [facility] [address] Corin kes - exposure 00:00:00 00:00:00 [facility] Center Sex Assigned At [address] [facility] Corin leobardos - 00:00:00 00:00:00 [facility] Center Smoking Status Start Date Stop Date Source Current every day smoker 2020-01-18 00:00:00 [facility] Medications Ordered Filled Start Stop Current Ordering [...] breakfast and dinner. hydrALAZINE 2020-0 Yes 10mg [id number] Take [address] (APRESOLINE 2-28 [id number] tablet (10 [facility] - ) 10 MG 00:00: 3D mg total) Medic al tablet 00 by mouth 3 Center (three) times daily. bumetanide 2020-0 Yes 2mg Q.5D Take 1 [facility] (BUMEX) 2 2-28 tablet (2 [facility] - MG tablet 00:00: mg total) Med ical 00 by mouth 2 Center (two) times daily. albuterol 2017-0 Yes 2{puff} Inhale [address] HFA 9-30 puffs by [facility] - (VENTOLIN 00:00: mouth via Med ical HFA) 90 00 inhaler. Center mcg/actuati on inhaler Procedures This patient has no known procedures. Plan of Care Planned Activity Planned Date Details Comments Source Future Scheduled 2023-01-[address] [facility] - Test 00:00:00 (procedure) [code = Medical Center [id number]] Future Scheduled 2021-07-25 INFLUENZA VACCINE (#1) [facility]00 [code = INFLUENZA Medical Ce nter VACCINE (#1)] Future Scheduled 2020-11-[address] [facility] - Test 00:00:00 (12+) [code = Medical Center DEPRESSION SCREENING (12+)] Future Scheduled 2020-04-[address] [facility] - Test 00:00:00 measurement [facility] Center (procedure) [code = 11073873] Future Scheduled 2015 SHINGLES VACCINES ([address] [facility] - Test 00:00:00 of 2) [code = SHINGLES Medic al Center VACCINES (1 of 2)] Future Scheduled 2012-08-[address] [facility] - Test 00:00:00 WELLNESS (YEAR 2 or Medical Center FIRST YEAR if no IPPE) [code = MEDICARE ANNUAL WELLNESS (YEAR 2 or FIRST YEAR if no IPPE)] Future Scheduled 1984 DTAP/TDAP/TD VACCINES [facility] Test 00:[facility]:00 (1 - Tdap) [code = Medical C enter DTAP/TDAP/TD VACCINES (1 - Tdap)] Future Scheduled 1983 HEPATITIS C SCRE[facility]ING [facility] Test 00:00:00 [code = HEPATITIS C Medical Center SCREENING] Future Scheduled 1977 COVID-19 VACCINE (1) [facility] Test 00:00:00 [code = COVID-[address] VACCINE (1)] Future Scheduled [address] DIABETIC EYE EXAM [facility] Test 00:00:00 [code = DIABETIC EYE Medical Center EXAM] Future Scheduled [address] [facility] - Test 00:00:00 examination Medical Center (regime/therapy) [code = 826595577] Future Scheduled 1975 Urine screening for [facility] Test 00:00:00 protein (procedure) Medical Center [code = 976500405] Future Scheduled [address] [facility] - Test 00:00:00 0-64 YRS (1 of 2 - Medical C enter PPSV23) [code = PNEUMOCOCCAL VACCINE 0-64 YRS (1 of 2 - PPSV23)] Future Scheduled [address] [facility] - Test 00:00:00 malignant neoplasm of Medica l Center colon (procedure) [code = 824556281] Encounters Start End Encounter Admission Attending Care Care Encounter Source Date/Time Date/Time Type Type Clinicians Facility Department ID 2020-04-06 2020-04-06 Telephone Addy [facility] [id number] [id number] 00:00:00 00:00:00 Lacie Cornwall [id number] [place] [id number] Alex [id number] nal [address] Building Results Test Description Test Time Test Comments Results Result Comments Source GLUCOSE BEDSIDE TESTING 2020-07-03 07:54:00 Test Item Value Reference Range Interpretation Comme nts GLUCOSE BEDSIDE TESTING (test code = GLUBED) 174 MG/DL 60-99 H GLUCOSE BEDSIDE [id number] 07:45:00 Test Item Value Reference Range Interpretation Comments GLUCOSE BEDSIDE TESTING (test code 257 MG/DL 60-99 H = GLUBED) - XR CHEST [id number] 11:26:00 Patient Name: CHAZ PADILLA Unit No: [id number] EXAMS: CPT CODE: [id number] XR CHEST 1V 81543 - XR CHEST 1V INDICATION:Pneumonia, CHF LOCATION: [...] [place]ina Orig Print D/T: S: 07/01/2020 (1129) [facility] NAME: CHAZ PADILLA [address] PHYS: [place] [address] : 1965 AGE: 54 SEX: M LOC: [id number] Rita PHONE #: [phone] EXAM DATE: 07/01/2020 STATUS: ADM IN FAX #: [phone] RADIOLOGY NO: PAGE 1 Signed ReportBASIC METABOLIC [id number] 09:57:00 Test Item Value Reference Range Interpretation [...] 9.8 MG/DL 8.4-10.2 N CA) HEPATIC FUNCTION [id number] 09:57:00 Test Item Value Reference Range Interpretation [...] code = 89 UNITS/L 38-126 N ALKP) [id number] 09:57:00 Test Item Value Reference Range Interpretation Comments MAGNESIUM (test code = MAG) 1.2 MG/DL 1.6-2.3 L VITAMIN [id number] 09:57:00 Test Item Value Reference Range Interpretation Comments VITAMIN B12 (test code = VITB12) 590 pg/mL 239-931 N FOLIC ACID BY [id number] 09:57:00 Test Item Value Reference Range Interpretation [...] code = FESAT) % 12-57 BASIC METABOLIC [id number] 09:39:00 Test Item Value Reference Range Interpretation [...] 9.8 MG/DL 8.4-10.2 N CA) HEPATIC FUNCTION [id number] 09:39:00 Test Item Value Reference Range Interpretation [...] code = 89 UNITS/L 38-126 N ALKP) [id number] 09:39:00 Test Item Value Reference Range Interpretation Comments MAGNESIUM (test code = MAG) 1.2 MG/DL 1.6-2.3 L VITAMIN [id number] 09:39:00 Test Item Value Reference Range Interpretation Comments VITAMIN B12 (test code = VITB12) 590 pg/mL 239-931 N FOLIC ACID BY [id number] 09:39:00 Test Item Value Reference Range Interpretation Comments FOLIC ACID BY MARCO A (test code = FOLR) ng/mL BASIC METABOLIC [id number] 08:51:00 Test Item Value Reference Range Interpretation [...] 9.8 MG/DL 8.4-10.2 N CA) HEPATIC FUNCTION [id number] 08:51:00 Test Item Value Reference Range Interpretation [...] code = 89 UNITS/L 38-126 N ALKP) [id number] 08:51:00 Test Item Value Reference Range Interpretation Comments MAGNESIUM (test code = MAG) 1.2 MG/DL 1.6-2.3 L VITAMIN [id number] 08:51:00 Test Item Value Reference Range Interpretation Comments VITAMIN B12 (test code = VITB12) pg/mL 239-931 FOLIC ACID BY [id number] 08:51:00 Test Item Value Reference Range Interpretation Comments FOLIC ACID BY MARCO A (test code = FOLR) ng/mL BASIC METABOLIC [id number] 08:48:00 Test Item Value Reference Range Interpretation [...] code = CA) MG/DL 8.7-9.7 HEPATIC FUNCTION [id number] 08:48:00 Test Item Value Reference Range Interpretation Comments TOTAL PROTEIN (test code = PROT) G/DL 6.2-7.6 ALBUMIN (test code = ALB) 3.8 G/DL 3.5-5.0 N BILIRUBIN TOTAL (test code = BILT) MG/DL 0.2-1.3 BILIRUBIN DIRECT (test code = BILD) MG/DL 0.0-0.3 SGOT/AST (test code = AST) UNITS/L 15-37 SGPT/ALT (test code = ALT) UNITS/L <50 ALKALINE PHOSPHATASE (test code = UNITS/L 38-126 ALKP) [id number] 08:48:00 Test Item Value Reference Range Interpretation Comments MAGNESIUM (test code = MAG) MG/DL 1.6-2.3 VITAMIN [id number] 08:48:00 Test Item Value Reference Range Interpretation Comments VITAMIN B12 (test code = VITB12) pg/mL 239-931 FOLIC ACID BY [id number] 08:48:00 Test Item Value Reference Range Interpretation Comments FOLIC ACID BY MARCO A (test code = FOLR) ng/mL BASIC METABOLIC [id number] 08:47:00 Test Item Value Reference Range Interpretation [...] code = CA) MG/DL 8.7-9.7 HEPATIC FUNCTION [id number] 08:47:00 Test Item Value Reference Range Interpretation Comments TOTAL PROTEIN (test code = PROT) G/DL 6.2-7.6 ALBUMIN (test code = ALB) 3.8 G/DL 3.5-5.0 N BILIRUBIN TOTAL (test code = BILT) MG/DL 0.2-1.3 BILIRUBIN DIRECT (test code = BILD) MG/DL 0.0-0.3 SGOT/AST (test code = AST) UNITS/L 15-37 SGPT/ALT (test code = ALT) UNITS/L <50 ALKALINE PHOSPHATASE (test code = UNITS/L 38-126 ALKP) [id number] 08:47:00 Test Item Value Reference Range Interpretation Comments MAGNESIUM (test code = MAG) MG/DL 1.6-2.3 VITAMIN [id number] 08:47:00 Test Item Value Reference Range Interpretation Comments VITAMIN B12 (test code = VITB12) pg/mL 239-931 FOLIC ACID BY [id number] 08:47:00 Test Item Value Reference Range Interpretation Comments FOLIC ACID BY MARCO A (test code = FOLR) ng/mL CBC W/AUTO [id number] 08:40:00 Test Item Value Reference Range Interpretation [...] VERY HIGH...... ...>/= 190 mg/dL GLUCOSE BEDSIDE [id number] 08:16:00 Test Item Value Reference Range Interpretation [...] MG/DL 0-99 code = LDL) GLUCOSE BEDSIDE [id number] 02:09:00 Test Item Value Reference Range Interpretation Comments GLUCOSE BEDSIDE TESTING (test code 162 MG/DL 60-99 H = GLUBED) GLUCOSE BEDSIDE [id number] 16:12:00 Test Item Value Reference Range Interpretation Comments GLUCOSE BEDSIDE TESTING (test code 236 MG/DL 60-99 H = GLUBED) [id number] 15:24:00 Test Item Value Reference Range Interpretation Comments TROPONIN-I (test code = TROPI) 0.035 NG/ML 0.012-0.033 H B-TYPE NATRIURETIC [id number] 09:02:00 Test Item Value Reference Range Interpretation Comments B-TYPE NATRIURETIC PEPTIDE (test 2004.0 PG/ML 0-100 H code = BNP) GLUCOSE BEDSIDE [id number] 09:00:00 Test Item Value Reference Range Interpretation Comments GLUCOSE BEDSIDE TESTING (test code 151 MG/DL 60-99 H = GLUBED) BASIC METABOLIC [id number] 08:38:00 Test Item Value Reference Range Interpretation [...] 9.5 MG/DL 8.4-10.2 N CA) THYROID STIMULATING [id number] 08:38:00 Test Item Value Reference Range Interpretation Comments THYROID STIMULATING 0.831 MIU/L 0.465-4.68 N Please b e aware that HORMONE (test code = bias re sults for TSH TSH) may occur forpa tient who are taking Biotin suppleme nts. GLYCOSYLATED HEMOGLOBIN [id number] 08:33:00 Test Item Value Reference Range Interpretation [...] H (test code = MBG) LIPOPROTEIN LDL [id number] 08:16:00 Test Item Value Reference Range Interpretation Comments LIPOPROTEIN LDL DIRECT < 30 mg/dL 100-129 L ===== (test code = LDLDIR) ======= ====R eference Interv al: mg/dL mmol/L-------- ----- ----- ----- ------Optimal < 100 <2.6Near/above optimal 100-129 2.6-3.3Borderli ne High 130-159 3.4-4.1High 160-189 4.1-4.9Very Hig h >=190 >=4.9========= This LDL result is a direct measurement.=== ===== = [id number] 08:16:00 Test Item Value Reference Range Interpretation Comments TROPONIN-I (test code = TROPI) 0.054 NG/ML 0.012-0.033 H BASIC METABOLIC [id number] 08:07:00 Test Item Value Reference Range Interpretation [...] 9.5 MG/DL 8.4-10.2 N CA) THYROID STIMULATING [id number] 08:07:00 Test Item Value Reference Range Interpretation Comments THYROID STIMULATING HORMONE (test code MIU/L 0.465-4.68 = TSH) BASIC METABOLIC [id number] 08:04:00 Test Item Value Reference Range Interpretation [...] code = CA) MG/DL 8.7-9.7 THYROID STIMULATING [id number] 08:04:00 Test Item Value Reference Range Interpretation Comments THYROID STIMULATING HORMONE (test code MIU/L 0.465-4.68 = TSH) BASIC METABOLIC [id number] 08:04:00 Test Item Value Reference Range Interpretation [...] code = CA) MG/DL 8.7-9.7 THYROID STIMULATING [id number] 08:04:00 Test Item Value Reference Range Interpretation Comments THYROID STIMULATING HORMONE (test code MIU/L 0.465-4.68 = TSH) CBC W/AUTO [id number] 08:03:00 Test Item Value Reference Range Interpretation [...] 0.00 K/mm3 0.0-0.1 N NRBC#) LIPOPROTEIN LDL [id number] 07:42:00 Test Item Value Reference Range Interpretation Comments LIPOPROTEIN LDL DIRECT (test code = mg/dL 100-129 LDLDIR) [id number] 07:42:00 Test Item Value Reference Range Interpretation Comments TROPONIN-I (test code = TROPI) 0.054 NG/ML 0.012-0.033 H SARS-COV2/RT-PCR ([facility])2020-06-24 08:18:00 Test Item Value Reference Range Interpretation Comments SARS-COV2/RT-PCR (test Negative Not Detected, Negative, code = 8764925) See external report for linked test SARS-COV-[address] [facility] (test code = 2543514) Negative result for this test determines that [...] a nasopharyngeal swab specimen collected from individuals susp ected of COVID-19 by their healthcare provider.This test [...] 564(g) of the Act.Fact Sheet for Healthcare Providers:https://www.Ruci.cn/sites/default/files/product/documents/Fact_Shee e_SV_Bwjxnyvca_Punr_UMHQ-CzK-2.pdfFact Sheet for Healthcare Patients:https://www.Ruci.cn/sites/default/files/product/ documents/Rvqp_Qzloz_Vrusmcvv_Pwwi_QRZC-ZuS-9.pdfPerforming Laboratory:[facility], [place] [address]IKHX-FUHRZKE METER 2020-01-21 08:36:00 Test Item Value Reference Range Interpretation Comments POC-GLUCOSE METER 164 mg/dL 70-110 H : TESTED A T [facility] [address] ([facility]) (test code = ANURAG Saldivar [facility], 1538) [address]: Owner/Operator/Techni dc ID = [id number] for JONAH MCNEAL BASIC METABOLIC [id number] 07:28:00 Test Item Value Reference Range Interpretation [...] 1092) DATA TO CALCULA TE ESTIMATED GFR. Owner/Operator ID - ADDIE [id number] 07:27:00 Test Item Value Reference Range Interpretation Comments MAGNESIUM (BEAKER) (test code = 1.3 mg/dL 1.6-2.6 L 627) Owner/Operator ID - ADDIE LB-TYPE NATRIURETIC FACTOR (BNP)2020-01-21 07:17:00 Test Item Value Reference Range Interpretation Comments B-TYPE NATRIURETIC PEPTIDE 1285 pg/mL 0-100 H (BEAKER) (test code = 700) Owner/Operator ID - ADDIE LCBC (HEMOGRAM ONLY)2020-01-21 06:56:00 Test Item Value [...] 0-0 (BEAKER) (test code = 413) POCT-GLUCOSE [id number] 00:24:00 Test Item Value Reference Range Interpretation Comments POC-GLUCOSE METER 177 mg/dL 70-110 H : TESTED A T [facility] 67[address] (BEAKER) (test code = [facility], 1538) [address]: Owner/Operator/Techni dc ID = [id number] for KAYLEE BUI POCT-GLUCOSE [id number] 16:47:00 Test Item Value Reference Range Interpretation Comments POC-GLUCOSE METER 124 mg/dL 70-110 H : TESTED A T [facility] 67[address] (BEAKER) (test code = [facility], 1538) [address]: Owner/Operator/Techni dc ID = [id number] for KASEY GOLDEN POCT-GLUCOSE [id number] 12:47:00 Test Item Value Reference Range Interpretation Comments POC-GLUCOSE METER 137 mg/dL 70-110 H : TESTED A T [facility] [address] (BEAKER) (test code = [facility], [facility]8) [address]: Owner/Operator/Techni dc ID = [id number] for KASEY GOLDEN POCT-GLUCOSE [id number] 09:32:00 Test Item Value Reference Range Interpretation Comments POC-GLUCOSE METER 174 mg/dL 70-110 H : TESTED A T [facility] 67[address] (BEAKER) (test code = [facility], [facility]8) [address]: Owner/Operator/Techni dc ID = [id number] for KASEY GOLDEN BASIC METABOLIC [id number] 06:36:00 Test Item Value Reference Range Interpretation [...] 1092) DATA TO CALCULA TE ESTIMATED GFR. Owner/Operator ID - ADDIE [id number] 06:30:00 Test Item Value Reference Range Interpretation Comments MAGNESIUM (BEAKER) (test code = 1.1 mg/dL 1.6-2.6 L 627) Owner/Operator ID - ADDIE LCBC (HEMOGRAM ONLY)2020-01-20 06:05:00 [...] 0-0 (BEAKER) (test code = 413) POCT-GLUCOSE [id number] 22:41:00 Test Item Value Reference Range Interpretation Comments POC-GLUCOSE METER 219 mg/dL 70-110 H : TESTED A T [facility] [address] (BEAKER) (test code = [place], 1538) [address]: Owner/Operator/Techni dc ID = [id number] for MARII FUCHS POCT-GLUCOSE [id number] 16:58:00 Test Item Value Reference Range Interpretation Comments POC-GLUCOSE METER 158 mg/dL 70-110 H : TESTED A T [facility] 67[address] (BEAKER) (test code = [facility], 1538) [address]: Owner/Operator/Techni dc ID = [id number] for COURTNEY FORD POCT-GLUCOSE [id number] 13:12:00 Test Item Value Reference Range Interpretation Comments POC-GLUCOSE METER 195 mg/dL 70-110 H : TESTED A T [facility] 67[address] (BEAKER) (test code = [facility], 1538) [address]: Owner/Operator/Techni dc ID = [id number] for KASEY GOLDEN POCT-GLUCOSE [id number] 07:39:00 Test Item Value Reference Range Interpretation Comments POC-GLUCOSE METER 237 mg/dL 70-110 H : TESTED A T [facility] [address] (BEAKER) (test code = [facility], 1538) [address]: Owner/Operator/Techni dc ID = [id number] for KASEY GOLDEN BASIC METABOLIC [id number] 06:16:00 Test Item Value Reference Range Interpretation [...] 1092) DATA TO CALCULA TE ESTIMATED GFR. Owner/Operator ID - NOLBERTO [id number] 06:14:00 Test Item Value Reference Range Interpretation Comments MAGNESIUM (BEAKER) (test code = 1.2 mg/dL 1.6-2.6 L 627) Owner/Operator ID - NOLBERTO MTSH/FREE T4 IF [id number] 06:13:00 Test Item Value Reference Range Interpretation Comments THYROID STIMULATING HORMONE 0.71 uIU/mL 0.35-4.94 (BEAKER) (test code = 772) Owner/Operator ID - DBB-TYPE NATRIURETIC FACTOR (BNP)2020-01-19 05:43:00 Test Item Value Reference Range Interpretation Comments B-TYPE NATRIURETIC PEPTIDE 2649 pg/mL 0-100 H (BEAKER) (test code = 700) Owner/Operator ID - NOLBERTO MCBC (HEMOGRAM ONLY)2020-01-19 05:41:00 [...] 0-0 (BEAKER) (test code = 413) POCT-GLUCOSE [id number] 23:12:00 Test Item Value Reference Range Interpretation Comments POC-GLUCOSE METER 265 mg/dL 70-110 H : TESTED A T [facility] [address] (BEAKER) (test code = [facility], 153) [address]: Owner/Operator/Techni dc ID = [id number] for MARII FUCHS POCT-GLUCOSE [id number] 17:14:00 Test Item Value Reference Range Interpretation Comments POC-GLUCOSE METER 250 mg/dL 70-110 H : TESTED A T [facility] [address] (BEAKER) (test code = [facility], 153) 95476: Owner/Operator/Techni dc ID = [id number] for OJ DOUG, ZABRINA POCT-GLUCOSE [id number] 13:31:00 Test Item Value Reference Range Interpretation Comments POC-GLUCOSE METER 306 mg/dL 70-110 H : Notified RN/MD: (ROBBY) (test code = TESTED AT [place] [address]) [facility], [address]: Owner/Operator/Techni dc ID = [id number] for OJ DOUG, ZABRINA [id number] 13:06:00 Test Item Value Reference Range Interpretation Comments MAGNESIUM (AKER) 1.6 mg/dL 1.6-2.6 Specimen slightly (test code = 627) hemolyzed Owner/Operator ID - CASS MPOCT-GLUCOSE [id number] 12:56:00 Test Item Value Reference Range Interpretation Comments POC-GLUCOSE METER 267 mg/dL 70-110 H : TESTED A T [facility] [address] (BEAKER) (test code = [facility], 153) [address]: Owner/Operator/Techni dc ID = [id number] for NATHEN CHANDA BETANCOURT RESPIRATORY PANEL [id number] 10:14:00 Test Item Value Reference Range Interpretation [...] sample was tested at the [facility] using the MUBIArray Respiratory Panel. It is FDA cleared and has been verified and approved by the [facility] for clinical use on nasopharyngeal swab specimens.The performance of the FilmArrayRP has not been established in individuals who received influenza vaccine. Recent administration ofa nasal influenza vaccine may cause false positive results for Influenza A and/orInfluenza B.POCT-GLUCOSE [id number] 09:44:00 Test Item Value Reference Range Interpretation Comments POC-GLUCOSE METER 281 mg/dL 70-110 H : TESTED A T [facility] [address] ([employer]) (test code = [facility] [place], 1538) [address]: Owner/Operator/Techni dc ID = [id number] for CHANDA LEÓN TROPONIN [id number] 09:35:00 Test Item Value Reference Range Interpretation Comments TROPONIN I (ROBBY) (test code = 0.10 ng/mL 0.00-0.03 H [...] failure, acidosis, acute neurological disease, and persistent tachyarrhythmia.Owner/Operator ID - CASS MHEMOGLOBIN A1C 2020-01-18 08:46:00 Test Item Value Reference Range Interpretation Comments HEMOGLOBIN A1C (ROBBY) (test code = 13.6 % 4.3-6.1 H 368) RAD, CHEST, 1 VIEW, NON [id number] 06:51:00Reason for exam:->CHFShould this be performed at [...] Christa Coley MDReport Verified Date/Time: 01/18/2020 06:51:28 TROPONIN [id number] 00:24:00 Test Item Value Reference Range Interpretation Comments TROPONIN I (ROBBY) (test code = 0.20 ng/mL 0.00-0.03 HH 397) Troponin I (TnI) levels must be [...] failure, acidosis, acute neurological disease, and persistent tachyarrhythmia.Owner/Operator ID - BSB-TYPE NATRIURETIC FACTOR (BNP)2020-01-18 00:15:00 Test Item Value Reference Range Interpretation Comments B-TYPE NATRIURETIC PEPTIDE 2998 pg/mL 0-100 H (BEAKER) (test code = 700) Owner/Operator ID - BSBASIC METABOLIC [id number] 00:14:00 Test Item Value Reference Range Interpretation [...] 1092) DATA TO CALCULA TE ESTIMATED GFR. Owner/Operator ID - [id number] 00:07:00 Test Item Value Reference Range Interpretation Comments MAGNESIUM (BEAKER) 1.1 mg/dL 1.6-2.6 L Specimen slightly (test code = 627) hemolyzed Owner/Operator ID - [id number] 00:07:00 Test Item Value Reference Range Interpretation Comments PHOSPHORUS (BEAKER) 4.7 mg/dL 2.3-4.7 Specimen slightly (test code = 604) hemolyzed Owner/Operator ID - BSLIPID [id number] 00:07:00 Test Item Value Reference Range Interpretation [...] Borderline 130-159 High 160-189 Very High >=190 Owner/Operator ID - [id number]/[id number] 23:50:00 Test Item Value Reference Range Interpretation [...] mechanical heart valves.CBC W/PLT COUNT & AUTO [id number] 23:42:00 Test Item Value Reference Range Interpretation [...] % 0-1 PERCENT (BEAKER) (test code = 0891)
[2021-08-04 02:47] LABS: Barbiturates NEGATIVE (NEGATIVE); Benzodiazepines NEGATIVE (NEGATIVE); Cocaine POSITIVE (NEGATIVE); METHAMPHETAM NEGATIVE (NEGATIVE); Methadone NEGATIVE (NEGATIVE); Opiates POSITIVE (NEGATIVE); Phencyclidine NEGATIVE (NEGATIVE); THC Cannibis NEGATIVE (NEGATIVE)
[2021-08-04 03:31] LABS: Urine Blood 1+ (Negative); Urine Glucose Negative (Negative); Urine Protein 3+ (Negative); Urine Specific Gravity 1.015 (1.005-1.030); Urine pH 8.5 (5.0-7.0)
[2021-08-04 03:52] LABS: Absolute Lymphocytes (CBC) 0.9 K/uL (0.7-4.9); Basophils % 0.2 % (0-1.3); Hematocrit 41.1 % (39.6-49.0); Lymphocytes % 9.9 % (15.3-44.8); MPV 7.2 fL (7.6-11.3); RBC Red Blood Cell Count 4.07 M/uL (4.33-5.43)
[2021-08-04 03:53] LABS: Protime INR 1.47
[2021-08-04 04:21] LABS: ALT/SGPT 15 U/L (12-78); AST/SGOT 19 U/L (15-37); Albumin 2.5 g/dL (3.4-5.0); Alkaline Phosphatase 138 U/L (45-117); BUN Blood Urea Nitrogen 23 mg/dL (7-18); Bicarbonate 26 mmol/L (21-32); Bilirubin Direct 2.1 mg/dL (0-0.2); Bilirubin Total 2.8 mg/dL (0.2-1.0); Glucose Level 148 mg/dL (74-106); NT PRO-BNP 12512 pg/mL (<125); Potassium 4.1 mmol/L (3.5-5.1); Protein, Total 6.2 g/dL (6.4-8.2); Sodium Level 135 mmol/L (136-145); Troponin (Emerg Dept Use Only) 0.05 ng/mL (0.0-0.045)
[2021-08-04 04:23] LABS: Magnesium 1.4 mg/dL (1.8-2.4)
--- NOTE | 2021-08-04 04:52 | EDPHYS ---
Physician Documentation [facility] Name: Nikos Corona Age: 55 yrs Sex: Male : 1965 Arrival Date: 08/04/2021 Time: 01:14 Bed 18 Private MD: ED Physician Jw Bowers HPI: 08/04 03:45 This 55 yrs old Male presents to ER via EMS with complaints of abdominal pain. tw4 03:45 Onset: The symptoms/episode began/occurred today. The symptoms do not radiate. tw4 Associated signs and symptoms: none. Modifying factors: The symptoms are alleviated by nothing, the symptoms are aggravated by alcohol. Severity of pain: At its worst the pain was moderate in the emergency department the pain is unchanged. The patient has not experienced similar symptoms in the past. Historical: - Allergies: 01:25 Rifampin; lh3 01:25 Sulfa (Sulfonamide Antibiotics); lh3 - Home Meds: 02:27 Bumetanide Oral [Active]; pantoprazole 40 mg oral TbEC 1 tab once daily [Active]; em spironolactone 25 mg Oral tab 1 tab 2 times per day [Active]; quetiapine 50 mg oral tab 1 tab nightly [Active]; Ativan 1 mg Oral tab 1 tab every 4 hours [Active]; hydrocodone-acetaminophen 10-325 mg Oral tab 1 tab every 6 hours for pain [Active]; Lasix 40 mg 1 tab PO DAILY (EVENING) three times a day for prn for edema [Active]; potassium chloride 20 mEq oral TbER 2 tab once daily [Active]; - Social history:: Smoking status: Patient reports the use of cigarette tobacco products, unknown amount. ROS: 03:45 All other systems are negative. tw4 03:45 All other systems are negative. 03:45 Unable to obtain ROS due to patient's inability to understand questions. Exam: 03:45 Constitutional: This is a well developed, well nourished patient who is awake, alert, tw4 and in no acute distress. Head/Face: Normocephalic, atraumatic. Chest/axilla: Normal chest wall appearance and motion. Nontender with no deformity. No lesions are appreciated. Cardiovascular: Regular rate and rhythm with a normal S1 and S2. No gallops, murmurs, or rubs. Normal PMI, no JVD. No pulse deficits. Respiratory: Lungs have equal breath sounds bilaterally, clear to auscultation and percussion. No rales, rhonchi or wheezes noted. No increased work of breathing, no retractions or nasal flaring. Abdomen/GI: Soft, non-tender, with normal bowel sounds. No distension or tympany. No guarding or rebound. No evidence of tenderness throughout. 03:45 Musculoskeletal/extremity: Extremities: noted in the lateral aspect of left calf, left calf, medial aspect of left calf and left parra: noted in the lateral aspect of right calf, right calf, medial aspect of right calf and right parra: Vital Signs: 01:17 BP 124 / 65; Pulse 94; Resp 18; Temp 98.2; Pulse Ox 96% on R/A; lh3 02:13 BP 103 / 79; Pulse 89; Resp 18; Pulse Ox 97% on R/A; em 03:51 BP 97 / 67; Pulse 89; Resp 18; Pulse Ox 99% on R/A; em 05:18 BP 115 / 87; Pulse 102; Resp 22; Pulse Ox 94% on R/A; em 05:34 BP 124 / 91; Pulse 101; Resp 22; Pulse Ox 96% on 2 lpm NC; em Michelle Coma Score: 02:13 Eye Response: spontaneous(4). Verbal Response: confused(4). Motor Response: obeys em commands(6). Total: 14. MDM: 01:14 Patient medically screened. tw4 04:52 Differential diagnosis: AAA, Hepatitis. Data reviewed: vital signs, nurses notes. Data tw4 interpreted: Pulse oximetry: Interpretation: normal. Test interpretation: by ED physician or midlevel provider: ECG. Counseling: I had a detailed discussion with the patient and/or guardian regarding: the historical points, exam findings, and any diagnostic results supporting the discharge/admit diagnosis. Physician consultation: Ya Locke MD regarding admission, to the telemetry unit. patient's condition, and will see patient in ED. Special discussion:. 10:17 ED course: Dr. Moctezuma called with CT results of ct head, states acute on chronic rn subdurals, small. Notified Dr. Mendoza, admitting physician, will see patient. . 08/04 01:25 Order name: Basic Metabolic Panel tw4 08/04 01:25 Order name: CBC with Diff; Complete Time: 04:34 4 08/04 01:25 Order name: LFT's; Complete Time: 04:34 tw4 08/04 01:25 Order name: Magnesium; Complete Time: 04:34 tw4 08/04 01:25 Order name: NT PRO-BNP; Complete Time: 04:34 tw4 08/04 01:25 Order name: PT-INR; Complete Time: 04:34 tw4 08/04 04:35 Interpretation: Normal except: PT 17.0. tw4 08/04 01:25 Order name: Troponin (emerg Dept Use Only); Complete Time: 04:34 tw4 08/04 04:35 Interpretation: Normal except: TROPED 0.05. 4 08/04 01:25 Order name: Basic Metabolic Panel; Complete Time: 04:34 EDMS 08/04 04:35 Interpretation: Normal except: NA 135; GLUC 148; BUN 23. tw4 08/04 01:32 Order name: Urine Drug Screen; Complete Time: 03:48 4 08/04 04:35 Interpretation: Normal except: IMANI POSITIVE; OPI POSITIVE. tw4 08/04 03:31 Order name: Urine Dipstick-Ancillary; Complete Time: 03:48 EDMS 08/04 04:35 Interpretation: Normal except: UPROT 3+; UPH 8.5; UBLD 1+. tw4 08/04 05:15 Order name: AMMONIA tw4 08/04 05:16 Order name: Ammonia; Complete Time: 06:30 EDMS 08/04 06:30 Interpretation: Abnormal. tw4 08/04 05:21 Order name: COVID-19 : Document "Date of Symptom Onset" if Symptomatic. em 08/04 05:32 Order name: CORONAVIRUS EDMS 08/04 01:25 Order name: XRAY Chest (1 view) tw4 08/04 01:25 Order name: EKG; Complete Time: 01:26 tw4 08/04 01:25 Order name: Cardiac monitoring; Complete Time: 02:12 tw4 08/04 06:29 Order name: SARS-COV-2 RT PCR EDMS 08/04 06:31 Order name: CT Head Brain wo Cont tw4 08/04 07:40 Order name: Glucose, Ancillary Testing EDMS 08/04 08:25 Order name: Troponin I EDMS 08/04 08:25 Order name: T4 Free [facility] 08/04 08:25 Order name: Thyroid Stimulating Hormone [facility] 08/04 10:33 Order name: CT [facility] 08/04 10:37 Order name: CT [facility] 08/04 11:52 Order name: Glucose, Ancillary Testing [facility] 08/04 12:36 Order name: Troponin I [facility] 08/04 16:33 Order name: Glucose, Ancillary Testing [facility] 08/04 01:25 Order name: EKG - Nurse/Tech; Complete Time: 02:12 tw4 08/04 01:25 Order name: IV Saline Lock; Complete Time: 02:12 tw4 08/04 01:25 Order name: Labs collected and sent; Complete Time: 02:12 tw4 08/04 01:25 Order name: O2 Per Protocol; Complete Time: 02:12 tw4 08/04 01:25 Order name: O2 Sat Monitoring; Complete Time: 02:12 tw4 08/04 01:25 Order name: Urine Dipstick-Ancillary (obtain specimen); Complete Time: 03:34 tw4 Administered Medications: 05:00 Drug: Lasix (furosemide) 40 mg Route: IVP; Site: left antecubital; em 05:17 Drug: Magnesium Sulfate 1 grams Route: IVPB; Infused Over: 1 hrs; Site: left em antecubital; Disposition Summary: 08/04/21 04:51 Hospitalization Ordered Hospitalization Status: Inpatient Admission tw4 Provider: Ya Locke [facility] Condition: Stable tw4 Problem: new tw4 Symptoms: have improved tw4 Bed/Room Type: Standard [facility] Location: Telemetry/MedSurg (Inpatient)(08/04/21 17:12) eb Room Assignment: [facility](08/04/21 17:12) eb Diagnosis - Unspecified combined systolic (congestive) and diastolic (congestive) heart failure tw4 Forms: - Medication Reconciliation Form tw4 - SBAR form tw4 Signatures: Dispatcher [employer] [facility] Janis Dempsey RN RN mw Woody, Diana, RN RN dw Munoz, Edgar, RN RN em Nieto, Roman, MD MD rn Wadley, Terrence, MD MD 4 Chioma Persaud Latisha, RN RN 3 Corrections: (The following items were deleted from the chart) 02:37 02:27 PMHx: Hyperlipidemia; em em 02:37 02:27 PMHx: Myocardial infarction; em em 02:37 02:27 PMHx: Diabetes - NIDDM; em em 02:37 02:27 PMHx: Hypertension; em em 02:37 02:27 PMHx: CHF; em em 02:37 02:27 PMHx: PTSD; em em 02:37 02:27 PMHx: neuropathy; em em 02:37 02:27 PMHx: osteomyelitis; em em 02:37 02:27 PMHx: PVD; em em 02:37 02:27 PMHx: CAD; em em 02:37 02:27 PMHx: DVT; em em 02:37 02:27 PMHx: Anxiety; em em 02:37 02:27 PMHx: ADD/ADHD; em em 06:15 04:51 Telemetry/MedSurg (Inpatient) tw4 mw 06:15 04:51 tw4 mw 08:20 06:15 BR ER HOLD mw dw 08:20 06:15 ERHOLD- mw dw 08:36 08:20 Telemetry/MedSurg (Inpatient) dw eb 08:36 08:20 209 dw eb 17:12 08:36 [facility] ER HOLD eb eb 17:12 08:36 ERHOLD- eb eb
--- NOTE | 2021-08-04 04:52 | ER ---
Nurse's Notes [facility] Name: Nikos Corona Age: 55 yrs Sex: Male : 1965 Arrival Date: 08/04/2021 Time: 01:14 Bed 18 Private MD: Diagnosis: Unspecified combined systolic (congestive) and diastolic (congestive) heart failure Presentation: 08/04 01:17 Chief complaint: Patient states: Patient states that he is having generalized weakness, lh3 his osullivan hurts and has been in for 5 weeks. Per EMS patient is on hospice and a DNR, and no longer wants to be on that, no paperwork seen to be confirmed. Ebola Screen: No symptoms or risks identified at this time. Initial Sepsis Screen: Does the patient meet any 2 criteria? HR > 90 bpm. Does the patient have a suspected source of infection? No. Patient's initial sepsis screen is negative. Risk Assessment:. Onset of symptoms was August 04, 2021. Care prior to arrival: IV initiated. 20 GA, in the left antecubital area. 01:17 Method Of Arrival: EMS: [facility] 01:17 Acuity: YESI 3 lh3 Historical: - Allergies: 01:25 Rifampin; lh3 01:25 Sulfa (Sulfonamide Antibiotics); lh3 - Home Meds: 02:27 Bumetanide Oral [Active]; pantoprazole 40 mg oral TbEC 1 tab once daily [Active]; em spironolactone 25 mg Oral tab 1 tab 2 times per day [Active]; quetiapine 50 mg oral tab 1 tab nightly [Active]; Ativan 1 mg Oral tab 1 tab every 4 hours [Active]; hydrocodone-acetaminophen 10-325 mg Oral tab 1 tab every 6 hours for pain [Active]; Lasix 40 mg 1 tab PO DAILY (EVENING) three times a day for prn for edema [Active]; potassium chloride 20 mEq oral TbER 2 tab once daily [Active]; - Social history:: Smoking status: Patient reports the use of cigarette tobacco products, unknown amount. Screenin:54 Abuse screen: Denies threats or abuse. Nutritional screening: No deficits noted. em Tuberculosis screening: No symptoms or risk factors identified. Fall Risk Ambulatory Aid- None/Bed Rest/Nurse Assist (0 pts). Gait- Weak (10 pts.). Mental Status- Overestimates/Forgets Limitations (15 pts.). Total Baron Fall Scale indicates No Risk (0-24 pts). Assessment: 02:15 General: Appears distressed, uncomfortable, obese, unkempt, Behavior is anxious, em restless. Pain: Complains of pain in abdomen. Neuro: No deficits noted. Cardiovascular: No deficits noted. Respiratory: No deficits noted. GI: Reports lower abdominal pain, upper abdominal pain. : : Osullivan in place. EENT: No deficits noted. 02:21 : Reports pain Pt arrived with 16 F osullivan cath. Swelling noted to scrotum. Foul em smelling dark cloudy urine noted in bag. Pt states he is at home with hospice. 02:37 General: Upon arrival pt states he lost his brown wallet. No wallet present upon em arrival. Pt presented with cell phone, senior product development scientist and home medications from EMS.. 04:30 General: Dr. Bowers notified of critical MG 1.4.. em 05:37 General: 4+ pitting edema to BLE. Skin discolored with scattered abrasions. Abdomen em obese. Pt confused GCS 14. Pt is poor historian. Pt arrived with osullivan 16F from home. Dependent bag changed. Pt calling out for family, restless in bed. Unknown baseline.. Vital Signs: 01:17 BP 124 / 65; Pulse 94; Resp 18; Temp 98.2; Pulse Ox 96% on R/A; lh3 02:13 BP 103 / 79; Pulse 89; Resp 18; Pulse Ox 97% on R/A; em 03:51 BP 97 / 67; Pulse 89; Resp 18; Pulse Ox 99% on R/A; em 05:18 BP 115 / 87; Pulse 102; Resp 22; Pulse Ox 94% on R/A; em 05:34 BP 124 / 91; Pulse 101; Resp 22; Pulse Ox 96% on 2 lpm NC; em Vitals: 02:13 Cardiac Rhythm Assessment Regular. em Michelle Coma Score: 02:13 Eye Response: spontaneous(4). Verbal Response: confused(4). Motor Response: obeys em commands(6). Total: 14. ED Course: 01:14 Patient arrived in ED. tw4 01:14 Jw Bowers MD is Attending Physician. tw4 01:25 Triage completed. lh3 01:32 Valentin Akins, RN is Primary Nurse. em 01:52 XRAY Chest (1 view) In Process Unspecified. EDMS 02:11 Urine Drug Screen Sent. em 02:11 Basic Metabolic Panel Sent. em 02:11 Basic Metabolic Panel Sent. em 02:12 Accessed Maintain EMS IV. Dressing intact. Good blood return noted. Site clean \T\ dry. em Gauge \T\ site: 20G Left AC. 02:54 Arm band placed on. em 03:35 Urine collected: Osullivan catheter specimen, cloudy, norris colored. em 03:40 Lab(s) recollected, by prosthetics lab technician. em 04:51 Ya Locke MD is Hospitalizing Provider. tw4 05:30 AMMONIA Sent. em Administered Medications: 05:00 Drug: Lasix (furosemide) 40 mg Route: IVP; Site: left antecubital; em 05:17 Drug: Magnesium Sulfate 1 grams Route: IVPB; Infused Over: 1 hrs; Site: left em antecubital; Outcome: 04:51 Decision to Hospitalize by Provider. tw4 17:38 Patient left the ED. ll1 Signatures: Dispatcher [employer] EDMS Valentin Akins, RN RN Jw Bowers MD MD tw4 Heriberto Collins RN RN 1 Shirin Michelle RN RN lh3 Corrections: (The following items were deleted from the chart) 02:20 02:15 : em em 02: 02:27 PMHx: Hyperlipidemia; em em 02 02:27 PMHx: Myocardial infarction; em em 02:27 PMHx: Diabetes - NIDDM; em em 02:27 PMHx: Hypertension; em em 02: 02:27 PMHx: CHF; em em 02:27 PMHx: PTSD; em em 02:27 PMHx: neuropathy; em em 02:27 PMHx: osteomyelitis; em em 02:27 PMHx: PVD; em em 02:27 PMHx: CAD; em em 02:27 PMHx: DVT; em em 02:27 PMHx: Anxiety; em em 02:37 02:27 PMHx: ADD/ADHD; em em
[2021-08-04] MEDS ORDERED: MAGNESIUM SULFATE 1 gm IVPB 1 GM/100 ML BAG IV ONE (05:23)
[2021-08-04] MEDS ORDERED: FUROSEMIDE 40 MG/4 ML VIAL ONE ×3 (05:23→16:56)
[2021-08-04] MEDS ORDERED: ACETAMINOPHEN 500 MG TAB PO PRN (05:53)
[2021-08-04] MEDS ORDERED: ONDANSETRON 4 MG/2 ML VIAL IV PRN (05:53)
[2021-08-04] MEDS ORDERED: Levofloxacin500mg IV 500 MG/100 ML BAG IV SCH (06:00)
[2021-08-04 06:06] VITALS: BMI 48.2
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
[2021-08-04] MEDS: INSULIN -REGULAR HUMAN 50 UNIT/0.5 ML ML SQ SCH ×3 (07:30→16:30)
[2021-08-04] MEDS ORDERED: ENOXAPARIN 40 MG/0.4 ML SQ ONE (07:37)
[2021-08-04] MEDS ORDERED: Levofloxacin500mg IV 500 MG/100 ML BAG IV ONE (07:37)
[2021-08-04] MEDS: FUROSEMIDE 40 MG/4 ML VIAL IV SCH ×2 (08:23→16:40)
[2021-08-04 08:25] LABS: Thyroid Stimulating Hormone 3.57 uIU/mL (0.360-3.740); Troponin I 0.03 ng/mL (0.0-0.045)
--- NOTE | 2021-08-04 08:30 | RAD REPORT ---
EXAM DESCRIPTION: RAD - Chest Single View - 08/04/2021 1:52 am CLINICAL HISTORY: .. COMPARISON: Chest Single View dated 08/08/2020; Chest Single View dated 08/03/2020; Chest Pa And Lat ( 2 Views) dated 06/25/2020; Chest Single View dated 06/23/2020 FINDINGS: Lines: Pacemaker/ICD . Lungs: Diffuse prominence of the pulmonary interstitium. Pleural: No significant pleural effusions or pneumothorax. Cardiac: Cardiomegaly. Bones: No acute fractures. Other: IMPRESSION: Pulmonary edema/ congestive heart failure.
[2021-08-04] MEDS ORDERED: SPIRONOLACTONE 25 MG TABLET PO SCH (09:00)
[2021-08-04] MEDS ORDERED: ENOXAPARIN 40 MG/0.4 ML SQ SCH (09:00)
[2021-08-04 10:14] VITALS: O2SAT 95
--- NOTE | 2021-08-04 10:33 | RAD REPORT ---
EXAM DESCRIPTION: CT - Head Brain Wo Cont - 08/04/2021 10:05 am CLINICAL HISTORY: CONFUSED COMPARISON: No comparisonsHead angio dated 07/20/2019; Ct Stroke Brain Wo Cont dated 07/19/2019 TECHNIQUE: All CT scans are performed using dose optimization technique as appropriate and may inclu de automated exposure control or mA/KV adjustment according to patient size. FINDINGS: Bilateral small subdural hematoma is likely acute on chronic. The right-sided subdural hem atoma measures 6 millimeters in maximal thickness. The left-sided subdural hematoma measures up to 6 millimeters in maximal thickness as well. There is more volume on the right side, however. Chronic sm all vessel ischemic changes. No acute large vascular territory infarct. No hydrocephalus. The paranasal sinuses and mastoids are clear. The calvarium is intact. IMPRESSION: Bilateral small subdural hematoma is favored acute on chronic. No skull fracture or sign ificant mass effect. Discussed with Dr. Lopez by Dr. Moctezuma at 1020 on 08/04/21
--- NOTE | 2021-08-04 10:36 | RAD REPORT ---
EXAM DESCRIPTION: CT - Chest Abdomen Pelvis W Cont - 08/04/2021 10:05 am CLINICAL HISTORY: Chest and abdomen pain. abdominal pain COMPARISON: <Comparisons> TECHNIQUE: Approximately 100 mL nonionic IV contrast was administered to the patient. All CT scans are performed using dose optimization technique as appropriate and may include automated exposure control or mA/KV adjustment according to patient size. FINDINGS: The lungs are clear.Small bilateral pleural effusions.Mediastinal and hilar lymphadenopath y noted. This may be reactive.Cardiomegaly. Pacemaker leads. Left upper chest wall pacemaker. The liver, spleen, pancreas, adrenal glands and kidneys are within normal limits. Bowel containing right inguinal hernia. Body wall edema. Atherosclerosis. The bladder is decompressed via Lama catheter. Normal appendix. No pathologic lymphadenopathy in the abdomen or pelvis. Intramedullary mehnaz in the right femur. Mild compression deformities in the T11 and T12 vertebral bodi es which are likely chronic. IMPRESSION: Anasarca with pulmonary edema, small pleural effusions, and ascites. . Mediastinal and h ilar lymphadenopathy is likely reactive. Small bowel containing right inguinal hernia. No bowel obstruction.
[2021-08-04] MEDS ORDERED: SPIRONOLACTONE 25 MG TABLET ONE (11:25)
[2021-08-04] MEDS ORDERED: HYDROCODONE/APAP 10/325 TAB PO PRN (11:55)
[2021-08-04] MEDS ORDERED: LORazepam 2 MG/ML VIAL IV PRN (11:56)
[2021-08-04 12:01] VITALS: TEMP 97.9
[2021-08-04] MEDS ORDERED: LORazepam 2 MG/ML VIAL ONE (13:09)
[2021-08-04 16:29] VITALS: BP 118/79
[2021-08-04] MEDS ORDERED: HYDROCODONE/APAP 10/325 TAB ONE (16:45)
[2021-08-04] MEDS ORDERED: QUETIAPINE 25 MG TAB PO SCH (21:00)
--- NOTE | 2021-08-04 21:04 | P.DS ---
Admission Date: 08/04/21 Discharge Date: 08/04/21 Disposition: AMA-LEFT AGAINST MEDICAL ADVIC Discharge Condition: FAIR Reason for Admission: CHF exacerbation Brief History of Present Illness: Patient was admitted for chf exacerbation. HE was found to be cocaine positive Hospital Course: Patient was requesting to come and go. Considering that he was positive. The patient decided to leave ama Vital Signs/Physical Exam: Temp Pulse Resp BP Pulse Ox 97.9 F 92 H 22 H 118/79 96 08/04/21 16:00 08/04/21 16:40 08/04/21 16:40 08/04/21 16:40 08/04/21 16:40 General: Alert, In no apparent distress HEENT: Atraumatic, PERRLA, EOMI Neck: Supple, JVD not distended Respiratory: Clear to auscultation bilaterally, Normal air movement Cardiovascular: Regular rate/rhythm, Normal S1 S2 Gastrointestinal: Normal bowel sounds, No tenderness Musculoskeletal: No tenderness Integumentary: No rashes Neurological: Normal speech, Normal tone, Normal affect Lymphatics: No axilla or inguinal lymphadenopathy Laboratory Data at Discharge: WBC 9.50 K/uL (4.3-10.9) 08/04/21 03:40 Hgb 14.1 g/dL (13.6-17.9) 08/04/21 03:40 Hct 41.1 % (39.6-49.0) 08/04/21 03:40 Plt Count 250 K/uL (152-406) 08/04/21 03:40 PT 17.0 SECONDS (9.5-12.5) H 08/04/21 03:40 INR 1.47 08/04/21 03:40 Sodium 135 mmol/L (136-145) L 08/04/21 03:40 Potassium 4.1 mmol/L (3.5-5.1) 08/04/21 03:40 BUN 23 mg/dL (7-18) H 08/04/21 03:40 Creatinine 0.73 mg/dL (0.55-1.3) 08/04/21 03:40 Glucose 148 mg/dL (74-106) H 08/04/21 03:40 Magnesium 1.4 mg/dL (1.8-2.4) L* 08/04/21 03:40 Total Bilirubin 2.8 mg/dL (0.2-1.0) H 08/04/21 03:40 AST 19 U/L (15-37) 08/04/21 03:40 ALT 15 U/L (12-78) 08/04/21 03:40 Alkaline Phosphatase 138 U/L (45-117) H 08/04/21 03:40 Troponin I 0.03 ng/mL (0.0-0.045) 08/04/21 12:06 Home Medications: Aspirin [Aspirin EC 81 MG] 81 mg PO DAILY #30 tablet.dr 01/12/20 Clopidogrel Bisulfate [Plavix*] 75 mg PO DAILY #30 tablet 01/12/20 Pantoprazole [Protonix Tab*] 40 mg PO DAILYAC #30 tab 01/12/20 carvediloL [Coreg*] 3.125 mg PO BID 6AM 6PM #60 tab 01/12/20 Hydrocodone 10/APAP 325 [[place] 10/325*] 1 tab PO Q4H PRN 06/23/20 Albuterol Inhaler [Ventolin Inhaler*] 3 puff IH BID PRN 08/03/20 Albuterol Sulfate [Albuterol Sulfate Hfa] 18 gm IH QID 08/03/20 Atorvastatin Calcium [Lipitor] 80 mg PO DAILY 08/03/20 Magnesium Oxide [Mag 0X*] 400 mg PO BID 08/03/20 Mirtazapine 7.5 mg PO BEDTIME 08/03/20 Furosemide [Lasix] 80 mg PO BID 30 Days #60 tablet 08/09/20 Spironolactone [Aldactone*] 1 tab PO BID 30 Days #60 tab 08/09/20 metOLazone [Zaroxolyn*] 5 mg PO DAILY 30 Days #30 tab 08/09/20 Diet: AHA Followup: NONE,NONE [Primary Care Provider] - Time spent managing pt's care (in minutes): 20
== END 2021-08-04 21:00 | disposition left against medical advice (07) | DRG 292 ==
LOC: ER 01:03 → ERHOLD 05:19 → 2ND 17:38
PROVIDERS: ADMIT Hospitalist; ATTEND Internal Medicine
DX: I11.0 Hypertensive heart disease with heart failure (principal); I24.9 Acute ischemic heart disease, unspecified; Z68.42 Body mass index [BMI] 45.0-49.9, adult; I50.23 Acute on chronic systolic (congestive) heart failure; I25.10 Atherosclerotic heart disease of native coronary artery without angina pectoris; E11.9 Type 2 diabetes mellitus without complications; E78.5 Hyperlipidemia, unspecified; E66.9 Obesity, unspecified; I73.9 Peripheral vascular disease, unspecified; F14.90 Cocaine use, unspecified, uncomplicated; F17.210 Nicotine dependence, cigarettes, uncomplicated; Z95.810 Presence of automatic (implantable) cardiac defibrillator; Z53.29 Procedure and treatment not carried out because of patient's decision for other reasons; Z20.822 Contact with and (suspected) exposure to COVID-19; Z95.5 Presence of coronary angioplasty implant and graft
CPT/HCPCS: 36415; 70450; 71045; 71260; 74177; 80048; 80076; 80307; 81003; 82140; 82947; 83735; 83880; 84439; 84443; 84484; 85025; 85610; 93005; 94760; 96374; 96375; 99284; J1650; J1940; J3475; Q9967; U0003